=== PATIENT | female | born 1950 | race Caucasian/White ===

== ENCOUNTER 2018-01-15 01:28 | Outpatient (CLI) | payer OTHER, SELFPAY ==
--- NOTE | 2018-01-15 11:44 | DI.RAD_ITS ---
SYMPTOM/DIAGNOSIS: PRIMARY MALIGNANT NEOPLASM RT LOWER LOBE OF LUNG, C34.31, F/ U LUNG CA PA AND LATERAL CHEST: There is a small, ill defined, increased density projected over the right lung apex which is suspicious for a pulmonary nodule. In addition, there is a questionable area of abnormality in the left upper lobe. There is no pleural effusion. The cardiovascular structures appear intact. SUMMARY: Question bilateral pulmonary nodules. Given the patient's history, further assessment with chest CT is suggested.
== END 2018-01-15 01:48 ==
PROVIDERS: PCP Nurse Practitioner Family; Visit Provider Internal Medicine Medical Oncology
DX: C34.31 Malignant neoplasm of lower lobe, right bronchus or lung (principal); R91.8 Other nonspecific abnormal finding of lung field
CPT/HCPCS: 71046

== ENCOUNTER 2018-01-15 11:07 | Outpatient (CLI) | payer OTHER, SELFPAY ==
[2018-01-15 11:38] LABS: Abs Immature Grans 0.05 k/cumm (0.0-0.09); Absolute Eosinophil Count 0.14 k/cumm (0.0-0.7); Absolute Lymphocyte Count 3.05 k/cumm (1.2-3.4); Absolute Monocyte Count 1.05 k/cumm (0.11-0.7); Absolute Neutrophil Count 7.35 k/cumm (1.2-6.7); Basophils % 0.3; Eosinophils % 1.2; HGB 13.2 g/dL (12.0-15.5); Immature Grans % 0.4; Lymphocytes % 26.1; Mean Corpuscular Hemoglobin 31.5 pg (27.0-33.0); Mean Corpuscular Volume 95.5 fL (80-95); Mean Platelet Volume 8.7 fL (8.0-11.0); Platelet Count 296 x1000/uL (130-400); RBC 4.19 m/cumm (4.00-5.20); RBC Distribution Width 13.2 % (11.7-14.6); White Blood Cell Count 11.67 k/cumm (4.4-10.8)
[2018-01-15 11:40] LABS: Absolute Basophil Count 0.04 k/cumm (0.0-0.2)
[2018-01-15 11:59] LABS: ALT 34 U/L (12-78); AST 18 U/L (15-37); Albumin 3.5 g/dL (3.4-5.0); Alkaline Phosphatase 136 U/L (46-116); Anion Gap 6.9 mmol/L (3-11); BUN 19 mg/dL (7-18); Bilirubin, Total 0.3 mg/dL (0.2-1.0); CO2 29.1 mmol/L (21.0-32.0); CREATININE 1.22 mg/dL (0.55-1.02); Calcium 9.1 mg/dL (8.5-10.1); Chloride 104 mmol/L (98-107); Estimated GFR 44.23 (mL/min/1.73m2); Glucose 100 mg/dL (70-100); Potassium 4.3 mmol/L (3.5-5.1); Sodium 140 mmol/L (136-145); T4 10.5 ug/dL (4.5-12.5); TSH 2.57 uIU/mL (0.358-3.74); Total Protein 7.2 g/dL (6.4-8.2)
== END 2018-01-15 11:27 ==
PROVIDERS: PCP Nurse Practitioner Family; Visit Provider Internal Medicine Medical Oncology
DX: C34.31 Malignant neoplasm of lower lobe, right bronchus or lung (principal); E03.2 Hypothyroidism due to medicaments and other exogenous substances
CPT/HCPCS: 36415; 80053; 84436; 84443; 85025

== ENCOUNTER 2018-02-18 08:30 | Outpatient (CLI) | payer OTHER, SELFPAY ==
--- NOTE | 2018-02-18 09:36 | DI.CT_ITS ---
SYMPTOM/DIAGNOSIS: H/O LUNG CA W/METS , S/P TREATMENT. ? STATUS OF DISEASE C34.[address]: 02/18 CT examination of the chest was performed without contrast administration due to history of contrast allergy. The patient reportedly has a history of metastatic lung carcinoma. The current examination is compared with the most recent CT of 08/09/2017. The previous examination showed multiple intrapulmonary lesions bilaterally. These are again seen on today's examination. Most of the lesions are essentially unchanged in size although there has been an increased radiodensity in the interval associated with a few of these lesions. Dominant left posterior suprahilar lesion which lies in the superior portion of the left lower lobe, is unchanged in size in comparison with the previous examination. A lesion in the right upper lobe measures about 10 x 12 mm in diameter and has markedly increased in radiodensity since the previous examination although grossly unchanged in size. No gross mediastinal or hilar adenopathy seen. No pleural effusion seen. Tracheobronchial tree appears intact. No axillary or supraclavicular adenopathy seen. Images obtained through the upper abdomen show unremarkable appearance of spleen , pancreas, adrenals and kidneys. Low attenuation, hepatic lesions appear unchanged from the previous examination and are too small to characterize on noncontrast CT. CONCLUSION: Comparison with examination of 08/09/2017 shows increased intralesional radiodensity in intrapulmonary presumed metastatic lesions. No gross interval growth of lesions identified. Please see above discussion.
[2018-02-18 09:56] LABS: ALT 21 U/L (12-78); AST 16 U/L (15-37); Albumin 3.3 g/dL (3.4-5.0); Alkaline Phosphatase 125 U/L (46-116); Anion Gap 8.1 mmol/L (3-11); BUN 17 mg/dL (7-18); Bilirubin, Total 0.3 mg/dL (0.2-1.0); CO2 28.9 mmol/L (21.0-32.0); CREATININE 1.17 mg/dL (0.55-1.02); Calcium 9.4 mg/dL (8.5-10.1); Chloride 104 mmol/L (98-107); Estimated GFR 46.42 (mL/min/1.73m2); Glucose 99 mg/dL (70-100); Potassium 4.1 mmol/L (3.5-5.1); Sodium 141 mmol/L (136-145)
== END 2018-02-18 08:50 ==
PROVIDERS: PCP Nurse Practitioner Family; Visit Provider Nurse Practitioner Family
DX: C34.31 Malignant neoplasm of lower lobe, right bronchus or lung (principal); E03.2 Hypothyroidism due to medicaments and other exogenous substances; Z92.21 Personal history of antineoplastic chemotherapy
CPT/HCPCS: 36415; 71250; 80053

== ENCOUNTER 2018-03-22 00:57 | Outpatient (CLI) | payer OTHER, SELFPAY ==
--- NOTE | 2018-03-22 11:46 | DI.US_ITS ---
SYMPTOM/DIAGNOSIS: PRIMARY MALIGNANCY OF RT LOWER LOBE OF LUNG, C34.31, ENLARGED RT THYROID SEEN ON US, ? STATUS THYROID ULTRASOUND: Comparison is made with 10/12/16. A small nodule measuring 1 cm. in maximal dimension was seen on the previous exam. Today's exam shows a vascular nodule measuring 12 by 7 by 7 mm. at the lower pole of the right lobe of the thyroid, with a similar appearance to the previous exam. A few tiny colloid cysts are also seen. The right lobe measures 4.8 by 1.4 by 1.4 cm. The left lobe measures 3.7 by 1.7 by 1.3 cm. IMPRESSION: No significant change in size or appearance of previously noted hypervascular nodule at the lower pole of the right lobe of the thyroid.
== END 2018-03-22 01:17 ==
PROVIDERS: PCP Nurse Practitioner Family; Visit Provider Nurse Practitioner Family
DX: E04.9 Nontoxic goiter, unspecified (principal); E04.1 Nontoxic single thyroid nodule; C34.31 Malignant neoplasm of lower lobe, right bronchus or lung
CPT/HCPCS: 76536

== ENCOUNTER 2018-07-01 12:06 | Outpatient (CLI) | payer OTHER, SELFPAY ==
[2018-07-01 12:43] LABS: Abs Immature Grans 0.03 k/cumm (0.0-0.09); Absolute Basophil Count 0.03 k/cumm (0.0-0.2); Absolute Eosinophil Count 0.08 k/cumm (0.0-0.7); Absolute Lymphocyte Count 2.55 k/cumm (1.2-3.4); Absolute Monocyte Count 0.74 k/cumm (0.11-0.7); Basophils % 0.3; Eosinophils % 0.8; HCT 39.6 % (36.0-46.0); Immature Grans % 0.3; Lymphocytes % 24.4; Mean Corp. HGB Concentration 32.8 g/dL (32.0-36.0); Mean Corpuscular Volume 94.5 fL (80-95); Mean Platelet Volume 8.5 fL (8.0-11.0); Monocytes % 7.1; Neutrophils % 67.1; Platelet Count 293 x1000/uL (130-400); RBC 4.19 m/cumm (4.00-5.20); RBC Distribution Width 13.3 % (11.7-14.6); White Blood Cell Count 10.43 k/cumm (4.4-10.8)
[2018-07-01 13:03] LABS: ALT 23 U/L (12-78); AST 14 U/L (15-37); Albumin 3.4 g/dL (3.4-5.0); Alkaline Phosphatase 147 U/L (46-116); Anion Gap 9.8 mmol/L (3-11); BUN 17 mg/dL (7-18); Bilirubin, Total 0.3 mg/dL (0.2-1.0); CO2 27.2 mmol/L (21.0-32.0); Chloride 102 mmol/L (98-107); Estimated GFR 41.11 (mL/min/1.73m2); Glucose 91 mg/dL (70-100); LDH 165 U/L (81-234); Potassium 4.2 mmol/L (3.5-5.1); Sodium 139 mmol/L (136-145); Total Protein 7.4 g/dL (6.4-8.2)
--- NOTE | 2018-07-01 13:35 | DI.RAD_ITS ---
SYMPTOM/DIAGNOSIS: H/O LUNG CA, S/P TREATMENT, ? STATUS OF DISEASE, C34.31 PA AND LATERAL CHEST: The examination is compared with previous examination of 01/15/18. The patient reportedly has a history of lung carcinoma. Multiple questionable pulmonary nodules were identified on chest film of 01/15/18. On today's examination, these appear grossly unchanged or slightly more prominent with a right lower lung field nodule measuring about 8 mm. in diameter and appearing more prominent than on the previous examination and a right upper lung field nodule measuring about 14 mm. in diameter and grossly unchanged. The questionable area of nodularity of the left upper lobe is less prominent on the current examination.
[2018-07-05 10:48] LABS: Amphetamines Negative ng/mL (Cutoff: 30); Barbiturates Negative ng/mL (Cutoff: 75); Benzodiazepines Negative ng/mL (Cutoff: 75); Buprenorphine Negative ng/mL (Cutoff: 1); Methamphetamine Negative ng/mL (Cutoff: 30)
[2018-07-05 10:49] LABS: Cocaine Negative ng/mL (Cutoff: 30); Methadone Negative ng/mL (Cutoff: 40); Opiates Negative ng/mL (Cutoff: 30); Phencyclidine Negative ng/mL (Cutoff: 15)
== END 2018-07-01 12:26 ==
PROVIDERS: PCP Nurse Practitioner Family; Visit Provider Nurse Practitioner Family
DX: Z85.118 Personal history of other malignant neoplasm of bronchus and lung (principal); R91.8 Other nonspecific abnormal finding of lung field; Z79.899 Other long term (current) drug therapy
CPT/HCPCS: 36415; 80053; 71046; 80307; 83615; 85025

== ENCOUNTER 2018-09-12 14:59 | Outpatient (CLI) | payer OTHER, SELFPAY ==
[2018-09-17 13:07] LABS: Amphetamines Negative ng/mL (Cutoff: 30); Barbiturates Negative ng/mL (Cutoff: 75); Benzodiazepines Negative ng/mL (Cutoff: 75); Buprenorphine Negative ng/mL (Cutoff: 1); Methamphetamine Negative ng/mL (Cutoff: 30)
[2018-09-17 13:08] LABS: Cocaine Negative ng/mL (Cutoff: 30); Methadone Negative ng/mL (Cutoff: 40); Opiates Negative ng/mL (Cutoff: 30); Phencyclidine Negative ng/mL (Cutoff: 15)
== END 2018-09-12 15:19 ==
PROVIDERS: PCP Nurse Practitioner Family; Visit Provider Nurse Practitioner Family
DX: Z51.81 Encounter for therapeutic drug level monitoring (principal); Z79.899 Other long term (current) drug therapy; R63.5 Abnormal weight gain; E04.9 Nontoxic goiter, unspecified
CPT/HCPCS: 36415; 80307; 84443

== ENCOUNTER 2018-10-28 13:53 | Outpatient (CLI) | payer OTHER, SELFPAY ==
[2018-10-28 14:23] LABS: Abs Immature Grans 0.03 k/cumm (0.0-0.09); Absolute Basophil Count 0.02 k/cumm (0.0-0.2); Absolute Eosinophil Count 0.12 k/cumm (0.0-0.7); Absolute Lymphocyte Count 2.66 k/cumm (1.2-3.4); Absolute Monocyte Count 1.04 k/cumm (0.11-0.7); Absolute Neutrophil Count 7.06 k/cumm (1.2-6.7); Basophils % 0.2; Eosinophils % 1.1; HCT 37.6 % (36.0-46.0); HGB 12.5 g/dL (12.0-15.5); Immature Grans % 0.3; Lymphocytes % 24.3; Mean Corp. HGB Concentration 33.2 g/dL (32.0-36.0); Mean Corpuscular Hemoglobin 31.5 pg (27.0-33.0); Mean Corpuscular Volume 94.7 fL (80-95); Mean Platelet Volume 8.5 fL (8.0-11.0); Monocytes % 9.5; Neutrophils % 64.6; Platelet Count 312 x1000/uL (130-400); RBC 3.97 m/cumm (4.00-5.20); RBC Distribution Width 13.4 % (11.7-14.6); White Blood Cell Count 10.93 k/cumm (4.4-10.8)
[2018-10-28 14:56] LABS: ALT 19 U/L (12-78); AST 9 U/L (15-37); Albumin 3.2 g/dL (3.4-5.0); Alkaline Phosphatase 137 U/L (46-116); Anion Gap 10.7 mmol/L (3-11); BUN 14 mg/dL (7-18); Bilirubin, Total 0.2 mg/dL (0.2-1.0); CO2 25.3 mmol/L (21.0-32.0); CREATININE 1.21 mg/dL (0.55-1.02); Chloride 106 mmol/L (98-107); Estimated GFR 44.66 (mL/min/1.73m2); Glucose 91 mg/dL (70-100); Potassium 3.9 mmol/L (3.5-5.1); Sodium 142 mmol/L (136-145); Total Protein 7.1 g/dL (6.4-8.2)
== END 2018-10-28 14:13 ==
PROVIDERS: PCP Nurse Practitioner Family; Visit Provider Internal Medicine Hematology & Oncology
DX: C34.31 Malignant neoplasm of lower lobe, right bronchus or lung (principal)
CPT/HCPCS: 36415; 80053; 85025

== ENCOUNTER 2019-02-05 10:40 | Outpatient (CLI) | payer MEDICARE, OTHER, SELFPAY ==
[2019-02-05 11:04] LABS: Abs Immature Grans 0.04 k/cumm (0.0-0.09); Absolute Basophil Count 0.03 k/cumm (0.0-0.2); Absolute Eosinophil Count 0.16 k/cumm (0.0-0.7); Absolute Lymphocyte Count 3.25 k/cumm (1.2-3.4); Absolute Monocyte Count 1.17 k/cumm (0.11-0.7); Absolute Neutrophil Count 6.52 k/cumm (1.2-6.7); Basophils % 0.3; Eosinophils % 1.4; HCT 39.4 % (36.0-46.0); HGB 12.4 g/dL (12.0-15.5); Immature Grans % 0.4; Lymphocytes % 29.1; Mean Corp. HGB Concentration 31.5 g/dL (32.0-36.0); Mean Corpuscular Hemoglobin 30.6 pg (27.0-33.0); Mean Corpuscular Volume 97.3 fL (80-95); Mean Platelet Volume 8.7 fL (8.0-11.0); Monocytes % 10.5; Neutrophils % 58.3; Platelet Count 323 x1000/uL (130-400); RBC 4.05 m/cumm (4.00-5.20); RBC Distribution Width 13.5 % (11.7-14.6); White Blood Cell Count 11.18 k/cumm (4.4-10.8)
[2019-02-05 11:18] LABS: ALT 24 U/L (14-59); AST 14 U/L (15-37); Alkaline Phosphatase 144 U/L (46-116); Anion Gap 8.4 mmol/L (3-11); BUN 11 mg/dL (7-18); Bilirubin, Total 0.4 mg/dL (0.2-1.0); CO2 27.6 mmol/L (21.0-32.0); CREATININE 1.16 mg/dL (0.55-1.02); Calcium 8.7 mg/dL (8.5-10.1); Chloride 110 mmol/L (98-107); Estimated GFR 46.74 (mL/min/1.73m2); Glucose 116 mg/dL (70-100); Potassium 3.7 mmol/L (3.5-5.1); Sodium 146 mmol/L (136-145); TSH 2.11 uIU/mL (0.36-3.74); Total Protein 6.9 g/dL (6.4-8.2)
--- NOTE | 2019-02-05 11:20 | DI.RAD_ITS ---
EXAM: XR CHEST 2V PA LATERAL CLINICAL HISTORY: CANCER RT LOWER LOBE OF LUNG C34.31 TECHNIQUE: The study was performed according to the usual protocol. COMPARISON: XR CHEST 2V PA LATERAL from 07/01/2018 FINDINGS: PA and lateral chest obtained today is compared with prior chest film of July 01, 2018. The prior exa mination showed multiple faint intrapulmonary nodules in a patient with reported history of right low er lobe lung carcinoma. No gross interval change in appearance of the bilateral nodules. If you wis h more accurate assessment of extent of intrapulmonary disease, additional evaluation with chest CT w ould be recommended.
== END 2019-02-05 11:00 ==
PROVIDERS: PCP Nurse Practitioner Family; Visit Provider Internal Medicine Hematology & Oncology
DX: C34.31 Malignant neoplasm of lower lobe, right bronchus or lung (principal); E03.2 Hypothyroidism due to medicaments and other exogenous substances
CPT/HCPCS: 36415; 80053; 71046; 84443; 85025

== ENCOUNTER 2019-05-23 09:54 | Outpatient (CLI) | payer MEDICARE, OTHER, SELFPAY ==
[2019-05-23 10:30] LABS: HCT 41.3 % (36.0-46.0); HGB 13.2 g/dL (12.0-15.5); Mean Corpuscular Hemoglobin 30.6 pg (27.0-33.0); Mean Corpuscular Volume 95.8 fL (80-95); Mean Platelet Volume 8.9 fL (8.0-11.0); Platelet Count 335 x1000/uL (130-400); RBC 4.31 m/cumm (4.00-5.20); RBC Distribution Width 13.2 % (11.7-14.6); White Blood Cell Count 11.44 k/cumm (4.4-10.8)
[2019-05-23 11:44] LABS: Anion Gap 8.6 mmol/L (3-11); BUN 14 mg/dL (7-18); CO2 30.4 mmol/L (21.0-32.0); CREATININE 1.11 mg/dL (0.55-1.02); Chloride 108 mmol/L (98-107); Estimated GFR 49.18 (mL/min/1.73m2); Glucose 97 mg/dL (74-106); Potassium 4.2 mmol/L (3.5-5.1); Sodium 147 mmol/L (136-145)
== END 2019-05-23 10:14 ==
PROVIDERS: PCP Nurse Practitioner Family; Visit Provider Student in an Organized Health Care Education/Training Program
DX: R06.02 Shortness of breath (principal); Z86.2 Personal history of diseases of the blood and blood-forming organs and certain disorders involving the immune mechanism; R39.9 Unspecified symptoms and signs involving the genitourinary system; R79.89 Other specified abnormal findings of blood chemistry; R82.998 Other abnormal findings in urine
CPT/HCPCS: 36415; 80048; 85027; 87077; 87086; 87186

== ENCOUNTER 2019-05-23 13:06 | Outpatient (REF) | payer OTHER, SELFPAY, MEDICARE | END 2019-05-23 13:26 | LOC: LBN 13:06 | PROVIDERS: PCP Nurse Practitioner Family; Visit Provider Student in an Organized Health Care Education/Training Program | DX: R69 Illness, unspecified (principal) | CPT/HCPCS: 87077; 87086 ==

== ENCOUNTER 2019-08-15 02:17 | Outpatient (CLI) | payer MEDICARE, OTHER, SELFPAY ==
[2019-08-15 08:20] LABS: HCT 40.8 % (36.0-46.0); HGB 13.3 g/dL (12.0-15.5); Mean Corp. HGB Concentration 32.6 g/dL (32.0-36.0); Mean Corpuscular Hemoglobin 31.1 pg (27.0-33.0); Mean Corpuscular Volume 95.3 fL (80-95); Mean Platelet Volume 8.8 fL (8.0-11.0); RBC 4.28 m/cumm (4.00-5.20); RBC Distribution Width 13.5 % (11.7-14.6); White Blood Cell Count 9.83 k/cumm (4.4-10.8)
[2019-08-15 08:25] LABS: Anion Gap 7.5 mmol/L (3-11); CO2 28.5 mmol/L (21.0-32.0); CREATININE 1.48 mg/dL (0.55-1.02); Calcium 8.9 mg/dL (8.5-10.1); Estimated GFR 35.29 (mL/min/1.73m2); Potassium 4.5 mmol/L (3.5-5.1)
[2019-08-15 08:40] LABS: TSH (W/Ref FT4) 3.62 uIU/mL (0.36-3.74)
== END 2019-08-15 02:37 ==
PROVIDERS: PCP Student in an Organized Health Care Education/Training Program; Visit Provider Student in an Organized Health Care Education/Training Program
DX: R53.83 Other fatigue (principal); F32.9 Major depressive disorder, single episode, unspecified; E07.9 Disorder of thyroid, unspecified; R79.89 Other specified abnormal findings of blood chemistry; E46 Unspecified protein-calorie malnutrition; R06.2 Wheezing; J06.9 Acute upper respiratory infection, unspecified; Z11.59 Encounter for screening for other viral diseases
CPT/HCPCS: 36415; 80048; 85027; U0003; 84443

== ENCOUNTER 2019-08-15 03:49 | Outpatient (CLI) | payer OTHER, SELFPAY, MEDICARE ==
--- NOTE | 2019-08-15 07:49 | DI.US_ITS ---
EXAM: US THYROID CLINICAL HISTORY: eval rt lobe nodule,HAIR LOSS, NECK SWELLING, E07.9,R22.1 TECHNIQUE: Ultrasound performed using standard protocol. COMPARISON: No exams were available for comparison FINDINGS: Thyroid ultrasound was performed according to the usual protocol. Examination compared to prior stud y of 03/22/2018. Right thyroid lobe measures 46 x 12 x 16 millimeters and left thyroid lobe measures 34 x 15 x 14 millimeters. Thyroid parenchyma is moderately heterogeneous, a few small nodules are i dentified. There is a dominant 10 x 7 x 7 millimeter in diameter nodule of the inferior pole of the right thyroi d lobe. This is essentially unchanged in appearance in comparison with prior study of 2018. This i s a vascular lesion and is of solid hypo echogenicity. This is taller than wide in alignment. Lisa n is ill-defined. No echogenic foci. TIRADS evaluation, 7 points, TR 5, highly suspicious, tissue sampling recommended for lesions 1 cm or greater. No other significant change in bilateral nodules, the largest 4 millimeters in diameter in the right thyroid lobe.. IMPRESSION: TIRADS TR 5 lesion, tissue sampling recommended for lesions 1 cm or greater. DATA REPOSITORY:
== END 2019-08-15 04:09 ==
PROVIDERS: PCP Student in an Organized Health Care Education/Training Program; Visit Provider Student in an Organized Health Care Education/Training Program
DX: R22.1 Localized swelling, mass and lump, neck (principal); L65.8 Other specified nonscarring hair loss; E07.89 Other specified disorders of thyroid
CPT/HCPCS: 76536

== ENCOUNTER 2019-08-15 09:10 | Outpatient (CLI) | payer MEDICARE, OTHER, SELFPAY ==
[2019-08-16 17:38] LABS: COVID-19 RT-PCR Result NEGATIVE (Negative)
== END 2019-08-15 09:30 ==
PROVIDERS: PCP Student in an Organized Health Care Education/Training Program; Visit Provider Student in an Organized Health Care Education/Training Program
DX: R06.2 Wheezing (principal); J06.9 Acute upper respiratory infection, unspecified; Z11.59 Encounter for screening for other viral diseases
CPT/HCPCS: U0003

== ENCOUNTER 2019-08-27 22:37 | Outpatient (REF) | payer MEDICARE, OTHER, SELFPAY | END 2019-08-27 22:57 | LOC: LBN 22:37 | PROVIDERS: PCP Student in an Organized Health Care Education/Training Program; Visit Provider Student in an Organized Health Care Education/Training Program | DX: R31.9 Hematuria, unspecified (principal); R39.11 Hesitancy of micturition | CPT/HCPCS: 87077; 87086 ==

== ENCOUNTER 2019-09-04 03:49 | Outpatient (CLI) | payer MEDICARE, OTHER, SELFPAY ==
[2019-09-04 13:46] LABS: Abs Immature Grans 0.03 k/cumm (0.0-0.09); Absolute Basophil Count 0.02 k/cumm (0.0-0.2); Absolute Eosinophil Count 0.13 k/cumm (0.0-0.7); Absolute Monocyte Count 0.81 k/cumm (0.11-0.7); Absolute Neutrophil Count 4.88 k/cumm (1.2-6.7); Basophils % 0.2; Eosinophils % 1.4; HCT 39.6 % (36.0-46.0); HGB 12.8 g/dL (12.0-15.5); Immature Grans % 0.3 %; Lymphocytes % 37.4; Mean Corp. HGB Concentration 32.3 g/dL (32.0-36.0); Mean Corpuscular Hemoglobin 30.5 pg (27.0-33.0); Mean Corpuscular Volume 94.3 fL (80-95); Mean Platelet Volume 8.6 fL (8.0-11.0); Monocytes % 8.6; Neutrophils % 52.1; Platelet Count 288 x1000/uL (130-400); RBC Distribution Width 13.1 % (11.7-14.6); White Blood Cell Count 9.37 k/cumm (4.4-10.8)
[2019-09-04 14:06] LABS: ALT 29 U/L (14-59); AST 23 U/L (15-37); Albumin 3.4 g/dL (3.4-5.0); Alkaline Phosphatase 126 U/L (46-116); BUN 15 mg/dL (7-18); Bilirubin, Total 0.3 mg/dL (0.2-1.0); CREATININE 1.21 mg/dL (0.55-1.02); Chloride 105 mmol/L (98-107); Estimated GFR 44.52 (mL/min/1.73m2); Glucose 99 mg/dL (74-106); Potassium 4.3 mmol/L (3.5-5.1); Sodium 138 mmol/L (136-145); TSH 1.31 uIU/mL (0.36-3.74); Total Protein 7.2 g/dL (6.4-8.2)
== END 2019-09-04 04:09 ==
PROVIDERS: PCP Student in an Organized Health Care Education/Training Program; Visit Provider Internal Medicine Hematology & Oncology
DX: C34.31 Malignant neoplasm of lower lobe, right bronchus or lung (principal); E03.9 Hypothyroidism, unspecified
CPT/HCPCS: 36415; 80053; 84443; 85025

== ENCOUNTER 2019-12-11 03:00 | Outpatient (CLI) | payer MEDICARE, OTHER, SELFPAY ==
[2019-12-11 11:36] LABS: ALT 30 U/L (14-59); AST 21 U/L (15-37); Albumin 3.3 g/dL (3.4-5.0); Alkaline Phosphatase 107 U/L (46-116); Anion Gap 10.8 mmol/L (3-11); BUN 15 mg/dL (7-18); Bilirubin, Total 0.4 mg/dL (0.2-1.0); CO2 23.2 mmol/L (21.0-32.0); CREATININE 1.29 mg/dL (0.55-1.02); Chloride 106 mmol/L (98-107); Estimated GFR 41.22 (mL/min/1.73m2); Glucose 98 mg/dL (74-106); Sodium 140 mmol/L (136-145); TSH (W/Ref FT4) 0.64 uIU/mL (0.36-3.74); Total Protein 6.4 g/dL (6.4-8.2)
== END 2019-12-11 03:20 ==
PROVIDERS: PCP Student in an Organized Health Care Education/Training Program; Visit Provider Student in an Organized Health Care Education/Training Program
DX: R53.82 Chronic fatigue, unspecified (principal); R79.89 Other specified abnormal findings of blood chemistry
CPT/HCPCS: 36415; 80053; 84443

== ENCOUNTER 2020-02-02 08:08 | Emergency (ER) | payer MEDICARE, OTHER, SELFPAY ==
[2020-02-02 08:15] VITALS: BP 133/101; PULSE 79; RESP 22; TEMP 36.3; O2SAT 92
--- NOTE | 2020-02-02 08:15 | DI.RAD_ITS ---
EXAM: XR ANKLE RT COMPLETE CLINICAL HISTORY: Injury R/O fracture. TECHNIQUE: 2D digital imaging was performed. COMPARISON: No exams were available for comparison FINDINGS: BONES: There is a horizontal lucency in the lateral malleolus below the level of the talar dome suspi cious for nondisplaced fracture. No bony destructive lesion is seen. JOINTS: The ankle mortise is normally aligned. SOFT TISSUE: Soft tissue swelling of the ankle laterally. IMPRESSION: Horizontal lucency through the lateral malleolus below the level of the talar dome suspicious for non displaced fracture. Marked soft tissue swelling of the ankle laterally. CT scan may be obtained for further evaluation. DATA REPOSITORY: RADIATION DOSE DELIVERED:
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
[2020-02-02] MEDS: Acetaminophen 500 MG TAB PO (09:39)
== END 2020-02-02 09:59 | disposition home or self-care (01) ==
PROVIDERS: Emergency Provider Registered Nurse Emergency; PCP Student in an Organized Health Care Education/Training Program
DX: S82.64XA Nondisplaced fracture of lateral malleolus of right fibula, initial encounter for closed fracture (principal); S80.212A Abrasion, left knee, initial encounter; X50.9XXA Other and unspecified overexertion or strenuous movements or postures, initial encounter; G35 Multiple sclerosis
CPT/HCPCS: 27786; 99281; 73610; E0114; L4361

== ENCOUNTER 2020-02-11 10:07 | Outpatient (CLI) | payer MEDICARE, OTHER, SELFPAY | END 2020-02-11 10:27 | PROVIDERS: PCP Student in an Organized Health Care Education/Training Program; Referring Provider Student in an Organized Health Care Education/Training Program; Visit Provider Orthopaedic Surgery | DX: S82.891A Other fracture of right lower leg, initial encounter for closed fracture (principal); S93.401A Sprain of unspecified ligament of right ankle, initial encounter; W01.0XXA Fall on same level from slipping, tripping and stumbling without subsequent striking against object, initial encounter; G35 Multiple sclerosis | CPT/HCPCS: 99203; 99214 ==

== ENCOUNTER 2020-05-13 03:00 | Outpatient (CLI) | payer MEDICARE, OTHER, SELFPAY ==
[2020-05-13 10:36] LABS: ALT 42 U/L (14-59); AST 18 U/L (15-37); Albumin 3.5 g/dL (3.4-5.0); Alkaline Phosphatase 143 U/L (46-116); Anion Gap 9.1 mmol/L (3-11); BUN 16 mg/dL (7-18); Bilirubin, Total 0.4 mg/dL (0.2-1.0); CO2 27.9 mmol/L (21.0-32.0); CREATININE 1.3 mg/dL (0.55-1.02); Calcium 9.1 mg/dL (8.5-10.1); Chloride 107 mmol/L (98-107); Estimated GFR 40.86 (mL/min/1.73m2); Glucose 88 mg/dL (74-106); Magnesium 2.1 mg/dL (1.8-2.4); Potassium 4.1 mmol/L (3.5-5.1); Sodium 144 mmol/L (136-145); Total Protein 7.2 g/dL (6.4-8.2)
[2020-05-13 10:47] LABS: FREE T4 1.16 ng/dL (0.76-1.46); TSH 1.31 uIU/mL (0.36-3.74)
[2020-05-13 17:15] LABS: T3, Total 151 ng/dL (97-169)
== END 2020-05-13 03:01 | disposition home or self-care (01) ==
LOC: LBO 03:00
PROVIDERS: Internal Medicine Endocrinology, Diabetes & Metabolism; PCP Student in an Organized Health Care Education/Training Program; Visit Provider Student in an Organized Health Care Education/Training Program
DX: R19.7 Diarrhea, unspecified (principal); E86.0 Dehydration
CPT/HCPCS: 36415; 80053; 83735; 84439; 84443; 84480

== ENCOUNTER 2020-06-16 00:53 | Outpatient (CLI) | payer MEDICARE, OTHER, SELFPAY ==
--- NOTE | 2020-06-16 | DI.RAD_ITS ---
EXAM: XR CHEST 2V PA LATERAL CLINICAL HISTORY: F/U RLL LUNG CA,C34.31. TECHNIQUE: 2D digital imaging was performed. COMPARISON: CR XR CHEST 2V PA LATERAL from 07/01/2018 CR XR CHEST 2V PA LATERAL from 02/05/2019 FINDINGS: Heart size is normal. The mediastinum is not widened. Nodular infiltrate in the lateral aspect of the left lung is again noted as well as a small nodular i nfiltrate in the right upper lobe region, unchanged from January 2019. However, the nodular infiltr ate in the left upper lobe was not evident on chest x-ray of July 2018. The nodular infiltrate in t he right upper lobe region was evident on July 2018. There are no pleural effusions. IMPRESSION: Bilateral noncalcified nodular infiltrates. Suspicious.Recommend chest CT scan. DATA REPOSITORY: RADIATION DOSE DELIVERED:
== END 2020-06-16 01:13 ==
PROVIDERS: PCP Student in an Organized Health Care Education/Training Program; Visit Provider Internal Medicine Hematology & Oncology
DX: R91.8 Other nonspecific abnormal finding of lung field (principal); C34.31 Malignant neoplasm of lower lobe, right bronchus or lung
CPT/HCPCS: 71046

== ENCOUNTER 2020-06-16 02:19 | Outpatient (CLI) | payer MEDICARE, OTHER, SELFPAY ==
[2020-06-16 09:31] LABS: Abs Immature Grans 0.06 10^3/uL (0.0-0.06); Absolute Basophil Count 0.05 10^3/uL (0.0-0.2); Absolute Eosinophil Count 0.15 10^3/uL (0.0-0.7); Basophils % 0.4; Eosinophils % 1.3; HCT 40.1 % (36.0-46.0); HGB 13.2 g/dL (11.2-15.7); Immature Grans % 0.5; Lymphocytes % 19.7; MCH 30.3 pg (27.0-33.0); MCHC 32.9 % (32.0-36.0); MCV 92.2 fL (80-95); MPV 8.6 fL (8.0-11.0); Monocytes % 9.9; Neutrophils % 68.2; Nucleated RBC 0 %; Platelet Count 280 10^3/uL (130-400); RBC 4.35 10^6/uL (3.93-5.22); RDW 12.9 % (11.7-14.6); RDW-SD 44.1 fL; WBC 11.66 10^3/uL (4.4-10.8)
[2020-06-16 09:32] LABS: Absolute Monocyte Count 1.15 10^3/uL (0.1-0.8); Absolute Neutrophil Count 7.95 10^3/uL (1.2-6.7)
[2020-06-16 09:43] LABS: ALT 42 U/L (14-59); AST 21 U/L (15-37); Alkaline Phosphatase 133 U/L (46-116); Anion Gap 9.2 mmol/L (3-11); BUN 15 mg/dL (7-18); Bilirubin, Total 0.4 mg/dL (0.2-1.0); CO2 24.8 mmol/L (21.0-32.0); CREATININE 1.3 mg/dL (0.55-1.02); Calcium 8.8 mg/dL (8.5-10.1); Chloride 108 mmol/L (98-107); Estimated GFR 40.86 (mL/min/1.73m2); Glucose 112 mg/dL (74-106); Potassium 4.2 mmol/L (3.5-5.1); Sodium 142 mmol/L (136-145); Total Protein 7.1 g/dL (6.4-8.2)
== END 2020-06-16 02:20 | disposition home or self-care (01) ==
LOC: LBO 02:19
PROVIDERS: Internal Medicine Hematology & Oncology; PCP Student in an Organized Health Care Education/Training Program; Visit Provider Student in an Organized Health Care Education/Training Program
DX: C34.31 Malignant neoplasm of lower lobe, right bronchus or lung (principal)
CPT/HCPCS: 36415; 80053; 71046; 85025

== ENCOUNTER 2020-07-09 04:04 | Outpatient (CLI) | payer MEDICARE, OTHER, MEDICAID, SELFPAY ==
--- NOTE | 2020-07-09 09:30 | DI.CT_ITS ---
EXAM: CT CHEST WO CLINICAL HISTORY: PRIMARY RT LUNG CA,C34.31,ASSESS TREATMENT RESPONSE. TECHNIQUE: Imaging protocol: Axial computed tomography images were obtained and coronal and sagittal reformatted images were created and reviewed. COMPARISON: CT CT CHEST WO from 02/18/[address] CHEST WO from 02/18/2018 CR XR CHEST 2V PA LATERAL from 06/16/2020 CR XR CHEST 2V PA LATERAL from 06/16/2020 FINDINGS: Tracheobronchial tree: Patent where visualized. Pulmonary parenchyma: There has been an increase in size and number of the solid and ground-glass opa cities in the lungs. For instance there is a new opacity in the right upper lobe measuring 1.2 x 1 c m. (Series 4, image 174). There has been increase in opacity in the right upper lobe posterior late rally. This area currently measures 1.8 x 1.4 cm. This compares with 0.8 x 1.1 cm. (Series 4, imag e 212). There is again seen a bulla in the right lower lobe. There is scarring seen in the medial a spect of the left lower lobe. Mediastinum and Malina: No dominant adenopathy or fluid collection. There is a small hiatal hernia. Pleura: There is developed a small left pleural effusion. No right pleural effusion or pneumothorax is present. Heart: The heart is not dilated. Mild coronary artery calcification is present. No pericardial effus ion. Aorta: Thoracic aorta non-dilated. Mild atherosclerosis. Upper abdomen: Diffuse decreased attenuation of the liver consistent with fatty infiltration. Lymph nodes: Within normal limits. Soft tissues: Unremarkable. Bones:Normal. IMPRESSION: 1. Increase in number and size of pulmonary opacities suggestive of progressive metastatic disease. 2. Development of a left pleural effusion. RADIATION DOSE DELIVERED: 436.62mGy.cm Total DLP 436.62mGy.cm Total DLP DATA REPOSITORY: All CT scans at this facility are submitted to the National Radiology Data Registry (NRDR) Dose Index Registry (DIR) with the [employer] [place] [employer] ([employer]). RADIATION OPTIMIZATION: All CT scans at this facility use at least one of these dose optimization te chniques: automated exposure control; mA and/or kV adjustment per patient size (includes targeted exa ms where dose is matched to clinical indication); or iterative reconstruction.
== END 2020-07-09 04:24 ==
PROVIDERS: PCP Student in an Organized Health Care Education/Training Program; Visit Provider Nurse Practitioner Family
DX: C34.31 Malignant neoplasm of lower lobe, right bronchus or lung (principal); J90 Pleural effusion, not elsewhere classified; J98.4 Other disorders of lung; K76.0 Fatty (change of) liver, not elsewhere classified
CPT/HCPCS: 71250

== ENCOUNTER 2020-09-24 00:51 | Outpatient (RCR) | payer MEDICARE, MEDICAID, OTHER, SELFPAY ==
--- NOTE | 2020-09-24 09:45 | HOLTER_ITS ---
APPROVED REPORT Conclusion There is a 48-hour monitor ordered for indication of tachycardia. Patient was in normal sinus rhythm for the majority the recording with an average heart rate of 71 bp m (56-97 bpm) The patient had no episodes of ventricular tachycardia and 6 brief episodes of supraventricular tachy cardia with the longest lasting 7 beats. There were no PVCs and rare PACs. There were no episodes of atrial fibrillation, no pauses greater than 3 seconds and no evidence of hi gh degree heart block. There were no patient triggered events.
== END 2020-09-29 23:59 | disposition home or self-care (01) ==
LOC: RT 00:51
PROVIDERS: PCP Student in an Organized Health Care Education/Training Program; Visit Provider Student in an Organized Health Care Education/Training Program
DX: R00.0 Tachycardia, unspecified (principal); I47.1 Supraventricular tachycardia
CPT/HCPCS: 93227; 93225; 93226

== ENCOUNTER 2020-11-12 02:43 | Outpatient (CLI) | payer MEDICARE, OTHER, MEDICAID, SELFPAY ==
[2020-11-12 08:41] LABS: Abs Immature Grans 0.03 10^3/uL (0.0-0.06); Absolute Basophil Count 0.04 10^3/uL (0.0-0.2); Absolute Eosinophil Count 0.15 10^3/uL (0.0-0.7); Absolute Lymphocyte Count 2.56 10^3/uL (1.2-3.4); Absolute Neutrophil Count 7.58 10^3/uL (1.2-6.7); Basophils % 0.4; Eosinophils % 1.3; HCT 41.2 % (36.0-46.0); HGB 13.4 g/dL (11.2-15.7); Immature Grans % 0.3; Lymphocytes % 22.9; MCH 30.2 pg (27.0-33.0); MCHC 32.5 % (32.0-36.0); MCV 92.8 fL (80-95); MPV 8.6 fL (8.0-11.0); Monocytes % 7.2; Neutrophils % 67.9; Nucleated RBC 0 %; Platelet Count 259 10^3/uL (130-400); RBC 4.44 10^6/uL (3.93-5.22); RDW 13.1 % (11.7-14.6); RDW-SD 44.7 fL; WBC 11.16 10^3/uL (4.4-10.8)
[2020-11-12 10:24] LABS: ALT 52 U/L (14-59); AST 28 U/L (15-37); Albumin 3.3 g/dL (3.4-5.0); Alkaline Phosphatase 149 U/L (46-116); Anion Gap 10.9 mmol/L (3-11); BUN 14 mg/dL (7-18); Bilirubin, Total 0.3 mg/dL (0.2-1.0); CO2 23.1 mmol/L (21.0-32.0); CREATININE 1.4 mg/dL (0.55-1.02); Calcium 8.8 mg/dL (8.5-10.1); Calculated LDL 145 mg/dL (<100); Chloride 108 mmol/L (98-107); Cholesterol 219 mg/dL (<200); Estimated GFR 37.51 (mL/min/1.73m2); Glucose 152 mg/dL (74-106); HDL Cholesterol 61 mg/dL (40-60); Magnesium 2.2 mg/dL (1.8-2.4); Potassium 4.6 mmol/L (3.5-5.1); Sodium 142 mmol/L (136-145); TSH (W/Ref FT4) 1.49 uIU/mL (0.36-3.74); Total Protein 6.7 g/dL (6.4-8.2); Triglyceride 69 mg/dL (<150)
== END 2020-11-12 02:44 | disposition home or self-care (01) ==
LOC: LBO 02:43
PROVIDERS: Internal Medicine Hematology & Oncology; PCP Student in an Organized Health Care Education/Training Program; Visit Provider Student in an Organized Health Care Education/Training Program
DX: R53.82 Chronic fatigue, unspecified (principal); E86.0 Dehydration; R34 Anuria and oliguria; R79.89 Other specified abnormal findings of blood chemistry; R29.6 Repeated falls; Z79.899 Other long term (current) drug therapy
CPT/HCPCS: 36415; 80053; 80061; 83735; 84443; 85025

== ENCOUNTER → 2020-12-28 09:42 | Outpatient (BNVA) | payer MEDICARE, OTHER, MEDICAID, SELFPAY | PROVIDERS: PCP Student in an Organized Health Care Education/Training Program; Referring Provider Student in an Organized Health Care Education/Training Program; Visit Provider Psychiatry & Neurology Neurology | DX: G35 Multiple sclerosis (principal); R29.6 Repeated falls; J44.9 Chronic obstructive pulmonary disease, unspecified | CPT/HCPCS: 99214 ==

== ENCOUNTER 2021-05-10 02:10 | Outpatient (CLI) | payer MEDICARE, MEDICAID, SELFPAY ==
[2021-05-10 11:37] LABS: HCT 45.1 % (36.0-46.0); HGB 14.7 g/dL (11.2-15.7); MCH 30.8 pg (27.0-33.0); MCHC 32.6 % (32.0-36.0); MCV 94.5 fL (80-95); MPV 8.8 fL (8.0-11.0); Platelet Count 282 10^3/uL (130-400); RBC 4.77 10^6/uL (3.93-5.22); RDW 13.1 % (11.7-14.6); RDW-SD 44.9 fL; WBC 11.43 10^3/uL (4.4-10.8)
[2021-05-10 13:20] LABS: ALT 64 U/L (14-59); AST 34 U/L (15-37); Albumin 3.5 g/dL (3.4-5.0); Alkaline Phosphatase 149 U/L (46-116); Anion Gap 14.9 mmol/L (3-11); BUN 18 mg/dL (7-18); Bilirubin, Total 0.3 mg/dL (0.2-1.0); CO2 20.1 mmol/L (21.0-32.0); CREATININE 1.5 mg/dL (0.55-1.02); Calcium 8.8 mg/dL (8.5-10.1); Chloride 104 mmol/L (98-107); Estimated GFR 34.53 (mL/min/1.73m2); Glucose 104 mg/dL (74-106); Potassium 4.6 mmol/L (3.5-5.1); Sodium 139 mmol/L (136-145); TSH (W/Ref FT4) 2.74 uIU/mL (0.36-3.74); Total Protein 7.2 g/dL (6.4-8.2)
[2021-05-10 23:11] LABS: T3,Free 3.1 pg/mL (2.8-5.3)
== END 2021-05-10 02:11 | disposition home or self-care (01) ==
LOC: LBO 02:10
PROVIDERS: PCP Student in an Organized Health Care Education/Training Program; Visit Provider Student in an Organized Health Care Education/Training Program
DX: E86.0 Dehydration (principal); R79.89 Other specified abnormal findings of blood chemistry; E03.2 Hypothyroidism due to medicaments and other exogenous substances; E04.1 Nontoxic single thyroid nodule; E07.9 Disorder of thyroid, unspecified; F33.3 Major depressive disorder, recurrent, severe with psychotic symptoms
CPT/HCPCS: 36415; 80053; 85027; 84443; 84481

== ENCOUNTER 2021-05-23 01:36 | Outpatient (CLI) | payer MEDICARE, MEDICAID, SELFPAY ==
--- NOTE | 2021-05-23 07:00 | DI.US_ITS ---
Exam(s) US THYROID EXAM: US THYROID CLINICAL HISTORY: evaluate for change; pt senses asymmetry,nodule,e04.1,e07.9,thyroid disorde. TECHNIQUE: Ultrasound thyroid performed using standard protocol. COMPARISON: US US THYROID from 08/15/2019 FINDINGS: RIGHT THYROID LOBE: Measures 1.1 cm AP x 1.5 cm wide x 4.1 cm craniocaudal There are 3 finding in the right lobe. There is a small benign colloid cyst located superiorly, not clinically significant Two other findings are seen in the inferior half of the right lobe. Nodule #1 . Size: Measures 1.2 cm AP by 0.8 cm wide by 0.9 cm craniocaudal. Slightly larger than previous study of August 2019. Composition: Solid-2 points Echogenicity: Isoechoic to surrounding parenchyma-1 point Shape: Taller than wider-3 points Margin: Lobulated-2 points Echogenic Foci: None-0 point Total Points for this nodule: 8 ACR Ti-Rads Category: TR5 This nodule should undergo ultrasound-guided FNA. Nodule #2. This nodule is located lateral to the above nodule Size: Measures 0.8 x 0.8 x 0.9 cm. This has slightly increased in size. Composition: Mixed cystic-solid- 1 point Echogenicity: Solid component is isoechoic compared to surrounding parenchyma-1 point Shape: Not truly wider than taller in the transverse plane-0 points Margin: Smooth-0 points Echogenic Foci: None-0 point Total points for this nodule: 5 ACR Ti-Rads Category: TR4 This nodule can be followed conservatively. LEFT THYROID LOBE: Measures 1.1 cm AP x 1.3 wide x 3.5 cm craniocaudal There are no nodules in the left lobe. LYMPH NODES: There is no significant adenopathy. IMPRESSION: 1. Two nodules in the right thyroid lobe, both slightly larger than the August 2019 study. The more lat eral of the two nodules is partially solid-partially cystic and can be followed. The larger of the t wo nodules registers as a TiRads category 5 nodule and requires ultrasound-guided FNA. It measures s lightly larger than 1 cm. 2. No nodules in the left lobe nor in the isthmus. 3. There is no significant lymphadenopathy. DATA REPOSITORY:
== END 2021-05-23 01:56 ==
PROVIDERS: PCP Student in an Organized Health Care Education/Training Program; Visit Provider Student in an Organized Health Care Education/Training Program
DX: E04.2 Nontoxic multinodular goiter (principal); E07.89 Other specified disorders of thyroid
CPT/HCPCS: 76536

== ENCOUNTER 2021-06-02 04:24 | Outpatient (CLI) | payer MEDICARE, MEDICAID, SELFPAY ==
[2021-06-02 13:30] LABS: ALT 66 U/L (14-59); AST 26 U/L (15-37); Albumin 3.4 g/dL (3.4-5.0); Alkaline Phosphatase 155 U/L (46-116); Anion Gap 10.7 mmol/L (3-11); BUN 14 mg/dL (7-18); Bilirubin, Total 0.4 mg/dL (0.2-1.0); CO2 24.3 mmol/L (21.0-32.0); CREATININE 1.6 mg/dL (0.55-1.02); Calcium 8.6 mg/dL (8.5-10.1); Chloride 105 mmol/L (98-107); Estimated GFR 32.05 (mL/min/1.73m2); Glucose 100 mg/dL (74-106); Magnesium 2.2 mg/dL (1.8-2.4); Potassium 4.1 mmol/L (3.5-5.1); Sodium 140 mmol/L (136-145); Total Protein 7.2 g/dL (6.4-8.2)
== END 2021-06-02 04:25 | disposition home or self-care (01) ==
PROVIDERS: PCP Student in an Organized Health Care Education/Training Program; Visit Provider Student in an Organized Health Care Education/Training Program
DX: N28.9 Disorder of kidney and ureter, unspecified (principal); Z91.89 Other specified personal risk factors, not elsewhere classified; F50.9 Eating disorder, unspecified; K58.9 Irritable bowel syndrome, unspecified
CPT/HCPCS: 36415; 80053; 83735

== ENCOUNTER 2021-10-10 06:45 | Emergency (ER) | payer OTHER, MEDICAID, SELFPAY ==
[2021-10-10 06:53] VITALS: BP 141/61; PULSE 61; TEMP 36.6; O2SAT 95
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
--- NOTE | 2021-10-10 07:21 | DI.CT_ITS ---
Exam(s) CT HEAD WO EXAM: CT HEAD WO CLINICAL HISTORY: fall headache. TECHNIQUE: Imaging Protocol: Axial computed tomography images with coronal and sagittal reformatted images were created and reviewed COMPARISON: No exams were available for comparison FINDINGS: There are no skull fractures nor fluid in the visualized paranasal sinuses. There is no evidence of intracranial hemorrhage, mass effect, or shift of midline structures. There are no extra-axial fluid collections. Ventricles somewhat prominent but sore overlying cortical sulc i. Abundant bilateral periventricular hypodensity also evident. This may be consistent confluent th e left myelination, given the history of multiple sclerosis here. Similar explanation for the atroph y. IMPRESSION: No acute intracranial findings on this noninfused CT scan of the brain. White matter findings as above are probably related to demyelinating disease, chronic small-vessel wh ite matter ischemic changes, and/or combination thereof. Result called by myself to ER physician RADIATION DOSE DELIVERED: 706.48mGy.cm Total DLP DATA REPOSITORY: All CT scans at this facility are submitted to the National Radiology Data Registry (NRDR) Dose Index Registry (DIR) with the [employer] (ACR). RADIATION OPTIMIZATION: All CT scans at this facility use at least one of these dose optimization te chniques: automated exposure control; mA and/or kV adjustment per patient size (includes targeted exa ms where dose is matched to clinical indication); or iterative reconstruction.
--- NOTE | 2021-10-10 07:53 | DI.VRAD_ITS ---
PROCEDURE INFORMATION: Exam: CT Head Without Contrast Exam date and time: 10/10/2021 7:21 AM Age: 70 years old Clinical indication: Injury or trauma; Concussion/head injury; Consciousness not specified; Patient HX: S/P fall, headache TECHNIQUE: Imaging protocol: Computed tomography of the head without contrast. Radiation optimization: All CT scans at this facility use at least one of these dose optimization techniques: automated exposure control; mA and/or kV adjustment per patient size (includes targeted exams where dose is matched to clinical indication); or iterative reconstruction. COMPARISON: PT PET CT STANDARD SKULL 09/26/2016 10:03 AM FINDINGS: Brain: No intracranial hemorrhage, mass effect or midline shift. Cerebral ventricles: There is mild cerebral atrophy and concordant ventriculomegaly.. Paranasal sinuses: Visualized paranasal sinuses are well aerated. Mastoid air cells: Visualized mastoid air cells are well aerated. Bones/joints: The calvarium is intact. Mild changes of hyperostosis frontalis interna are noted. Soft tissues: A few small air bubbles are noted in the subcutaneous tissue of the frontal scalp from recent injury. IMPRESSION: No acute intracranial abnormality. Dictated and Authenticated by: Amrit Kelly MD. Ordering:DANILO Luna MD
--- NOTE | 2021-10-10 08:20 | ED.PROG_ITS ---
Date of service: 10/10/21 Time of Service: 07:30 Medical Decision Making Divya Lucas was signed out to me at time of shift change by Dr. Carey with CT head pending, discharge paperwork prepared in anticipation of negative result. CT head reported as no acute process. I had a discussion with Patient regarding return to emergency department precautions, home care, and importance of outpatient follow-up. Pt verbalizes understanding of the plan and is amenable. Patient discharged to home with clear plan for outpatient follow-up. All questions were answered. Disposition decision was made weighing the risks and benefits of hospitalization versus outpatient treatment, the risk for further decompensation, and the patient's wishes. Medical Records Medical records reviewed: Yes I reviewed the patient's medical records. Imaging Data Radiologic Study: Attestation: I personally reviewed and interpreted this imaging study as follows: Radiologist's impression: EXAM: ? CT HEAD WO CLINICAL HISTORY: ? fall headache. ? TECHNIQUE:? Imaging Protocol: Axial computed tomography images with coronal and sagittal reformatted images were created and reviewed COMPARISON:? No exams were available for comparison FINDINGS: ?There are no skull fractures nor fluid in the visualized paranasal sinuses. There is no evidence of intracranial hemorrhage, mass effect, or shift of midline structures.? There are no extra-axial fluid collections.? Ventricles somewhat prominent but sore overlying cortical sulci.? Abundant bilateral per iventricular hypodensity also evident.? This may be consistent confluent the left myelination, given the history of multiple sclerosis here.? Similar explanation for the atrophy. IMPRESSION: No acute intracranial findings on this noninfused CT scan of the brain. White matter findings as above are probably related to demyelinating disease, chronic small-vessel white matter ischemic changes, and/or combination thereof. Sign Out Sign Out Data: Sign Out Comment: history of MS, rolled out of bed and hit her head on nightstand, closed forehead/scalp wound with 3 sutures, pending CT results and if negative likely discharge home. Last updated by Jeremy Carey MD at 10/10/21 07:20 Discharge Plan Disposition Patient Disposition: HOME Condition: Stable Discharge Details Clinical Impression: Fall, Laceration of head Primary Care Provider: Yadira Nunez ED Provider: Aminta Pandey Home Meds and New Rx's Prescriptions: Continued melatonin 10 mg capsule 20 mg PO HS PRN (Reason: sleep) nystatin 100,000 unit/gram ointment 1 applic topical TID Qty: 30 1RF Rx Instructions: Trial for rash acetaminophen-codeine 300-15 mg tablet 1 tab PO BID PRN (Reason: pain) Qty: 10 0RF Rx Instructions: Trial for pain .. pregabalin [Lyrica] 25 mg capsule 25 mg PO DAILY Qty: 90 1RF Rx Instructions: Reducing dose 2' nightmares magnesium hydroxide 400 mg (170 mg magnesium) tablet,chewable PO atenolol 50 mg tablet See Rx Instructions PO BID Qty: 225 3RF Dose Instruction: Take 50 mg (1 pill) AM and 75mg (1 1/2 pill) PM PO BID; Rx Instructions: Take 50 mg (1 pill) AM and 75mg (1 1/2 pill) PM PO BID; bupropion HCl [Wellbutrin XL] 150 mg tablet extended release 24 hr 450 mg PO DAILY Qty: 270 3RF epinephrine [EpiPen 2-Devin] 0.3 mg/0.3 mL auto-injector 0.3 mg IM ONCE Qty: 1 1RF pregabalin 50 mg capsule 50 mg PO .COMPLEX Qty: 90 1RF Rx Instructions: Continue @ 50mg artifi.tears(hypromellose)(PF) 1.7 % drops with applicator 1 drp ophthalmic (eye) 4-8XD PRN (Reason: dry eye(s)) Qty: 12 0RF fluticasone propion-salmeterol [Advair Diskus] 250-50 mcg/dose blister with device 1 inh inhalation Q12H Qty: 60 1RF Tetanus Vaccination 1 ea IM ONCE Qty: 1 0RF albuterol sulfate [ProAir HFA] 90 mcg/actuation HFA aerosol inhaler 1 - 2 puff Inhalation Q4-6H PRN Qty: 1 3RF Rx Instructions: DISPENSE ALBUTEROL INHALER BRAND WITH SPACER COVERED BY INSURANCE (DME) POCKET CHAMBER Spacer See Rx Instructions .ROUTE .MEDSUPPLY Qty: 1 0RF Rx Instructions: As directed morphine 15 mg tablet 7.5 mg PO DAILY MDD 7.5mg PRN (Reason: serious pain or shortness of breath) Qty: 3 0RF Hold Instructions: Home Medication placed on hold at Doctor's office Rx Instructions: Trial for SOB; may take for pain. levothyroxine 50 mcg capsule 50 mcg PO DAILY Qty: 90 1RF Hold Instructions: making her sick? hydroxyzine HCl 10 mg tablet 10 mg PO TID PRN (Reason: anxiety) Qty: 90 1RF clonazepam 0.5 mg tablet 0.5 mg PO Q12H MDD 1mg Qty: 56 0RF Rx Instructions: Fill Date 10/18/20 folic acid 1 MG tablet 1 mg PO DAILY Qty: 30 0RF Discharge Instructions Instructions: Laceration (ED) Additional Instructions: Return in 7-10 days to have the sutures evaluated for removal if you have spreading redness from the wound, yellow/white drainage from the wound, new or severe worsening pain return to the emergency department Please return immediately to the emergency department if you develop any new or worsening symptoms, if your condition does not improve as expected, or if you become otherwise concerned. It is extremely important that you call soon as possible to make an appointment to be seen in follow-up for this visit by your primary care doctor. Referrals: Yadira Nunez DO [Primary Care Provider] -
[2021-10-10 08:39] VITALS: BP 131/65; PULSE 58; TEMP 36.2; O2SAT 93
== END 2021-10-10 08:55 | disposition home or self-care (01) ==
PROVIDERS: Emergency Provider Student in an Organized Health Care Education/Training Program; PCP Student in an Organized Health Care Education/Training Program
DX: S01.01XA Laceration without foreign body of scalp, initial encounter (principal); Z87.891 Personal history of nicotine dependence; W06.XXXA Fall from bed, initial encounter; W22.09XA Striking against other stationary object, initial encounter
CPT/HCPCS: 12002; 99284; 70450; 99282

== ENCOUNTER 2021-10-27 12:32 | Outpatient (CLI) | payer OTHER, MEDICAID, SELFPAY ==
[2021-10-27 12:29] LABS: HGB 14.6 g/dL (11.2-15.7)
[2021-10-27 13:12] LABS: ALT 60 U/L (14-59); AST 31 U/L (15-37); Albumin 3.4 g/dL (3.4-5.0); Alkaline Phosphatase 169 U/L (46-116); Anion Gap 9.4 mmol/L (3-11); BUN 21 mg/dL (7-18); Bilirubin, Total 0.5 mg/dL (0.2-1.0); CO2 22.6 mmol/L (21.0-32.0); CREATININE 1.4 mg/dL (0.55-1.02); Calcium 8.8 mg/dL (8.5-10.1); Chloride 107 mmol/L (98-107); Estimated GFR 37.39 (mL/min/1.73m2); Glucose 127 mg/dL (74-106); Potassium 4.6 mmol/L (3.5-5.1); Sodium 139 mmol/L (136-145); Total Protein 7.4 g/dL (6.4-8.2)
== END 2021-10-27 12:33 | disposition home or self-care (01) ==
LOC: LBO 12:34
PROVIDERS: PCP Student in an Organized Health Care Education/Training Program; Visit Provider Student in an Organized Health Care Education/Training Program
DX: N28.9 Disorder of kidney and ureter, unspecified (principal); R19.01 Right upper quadrant abdominal swelling, mass and lump; F41.8 Other specified anxiety disorders
CPT/HCPCS: 36415; 51798; 80053; 99214; 99215; 81015; 85018

== ENCOUNTER 2021-10-31 15:32 | Outpatient (REF) | payer OTHER, MEDICAID, SELFPAY | END 2021-10-31 15:33 | disposition home or self-care (01) | LOC: LBN 15:32 | PROVIDERS: PCP Student in an Organized Health Care Education/Training Program; Visit Provider Student in an Organized Health Care Education/Training Program ==

== ENCOUNTER 2021-11-25 00:27 | Outpatient (CLI) | payer OTHER, MEDICAID, SELFPAY ==
--- OUTSIDE RECORDS SUMMARY | 2021-11-25 00:28 | XMS_ITS | Encounter Summary ---
:1950 Author Organization [facility] [place] [address] Care Team Providers Name Role Phone Yadira Nunez DO Primary Care Provider Encounter Details Date Type Department Care Team Description 07/06/2020 Orders Only Hematology/Oncology Evelyn Weber Pr imary malignant at [facility] A, POLICE AIDE neoplasm of right [address] lower lobe of lung [place], [place] HEMATOLOGY ONCO LOGY [phone] [place], [place] [phone] (Wo rk) Social History Tobacco Use Types Packs/Day Years Used Date Former Smoker Cigarettes 0.25 52 Smokeless Tobacco: Former User Q uit: 07/05/2019 Comments: 3 cigarettes a day for last 25 years Alcohol Use Standard Drinks/Week Comments No 0 (1 standard drink = 0.6 oz pure alcoho l) Sex Assigned at Date Recorded Female 07/30/2020 4:21 AM EDT documented as of this encounter Plan of Treatment Upcoming Encounters Date Type Specialty Care Team Description 11/28/2021 Hospital Encounter Radiology Harlan Parmar MD [facility] HEMATOLOGY/ONCOLOGY DEPT. [place], [place] [address] (Wo rk) 11/28/2021 Appointment Radiology Harlan Parmar M D [facility] HEMATOLOGY/ONCOLOGY DEPT. [place], [place] [address] (Kai fermin) 12/01/2021 Office Visit Hematology and Oncology Harlan Parmar MD [facility] DR HEMATOLOGY/ONCOLOGY DEPT. [place], [place] [address] (Wo rk) documented as of this encounter Visit Diagnoses Diagnosis Primary malignant neoplasm of right lowe r lobe of lung Malignant neoplasm of lower lobe, bronch us, or lung documented in this encounter Care Teams Ship'S Master Relationship Specialty Start Date End Date Yadira Nunez DO PCP - General Family Medicine 08/27/[address] [place] [address] [place] [address] documented as of this encounter
--- OUTSIDE RECORDS SUMMARY | 2021-11-25 00:28 | XMS_ITS | Encounter Summary ---
:1950 Author Organization [place] [address] Care Team Providers Name Role Phone Yadira Nunez DO Primary Care Provider Encounter Details Date Type Department Care Team Description 07/01/2020 Office Visit Hematology/Oncology Nellie Parmar MD [facility] DR HEMATOLOGY/[place] [address] Primary malignant at [facility] Evelyn Weber, SERVICE [employer] [address] [place] [address] [place] [address] neoplasm of right [address] [place] [address] Drive [place] [address] Social History Tobacco Use Types Packs/Day Years Used Date Former Smoker Cigarettes 0.25 52 Smokeless Tobacco: Former User Q uit: 07/05/2019 Comments: 3 cigarettes a day for last 25 years Alcohol Use Standard Drinks/Week Comments No 0 (1 standard drink = 0.6 oz pure alcoho l) Sex Assigned at Date Recorded Female 07/30/2020 4:21 AM EDT documented as of this encounter Last Filed Vital Signs Vital Sign Reading Time Taken Comments Blood Pressure 138/70 07/01/2020 9:09 AM EDT Pulse 76 07/01/2020 9:09 AM EDT Temperature 36.1 ??C (97 ??F) 07/01/2020 9:09 AM EDT Respiratory Rate 20 07/01/2020 9:09 AM EDT Oxygen Saturation 93% 07/01/2020 9:09 AM EDT Inhaled Oxygen Concentration - - Weight 63.8 kg (140 lb 9.6 oz) 07/01/2020 9:09 AM EDT Height 152.5 cm (5' 0.04) 07/01/2020 9:09 AM EDT Body Mass Index 27.42 07/01/2020 9:09 AM EDT documented in this encounter Progress Notes Evelyn Weber APRN - 07/01/2020 9:00 AM EDT Subjective: Patient ID: Divya Mobley Friend is a 69 y.o. female. Patient Active Problem List Diagnosis Code ??? Primary malignant neoplasm of right lower lobe of lung C34.31 ??? 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 difficile and prednisone for autoimmune colitis. Observation since. INTERVAL HPI 07/01/20 Divya Pack Friend is a 69 yo female diagnosed 09/16 with stage IV RLL adenocarcinoma. (See history assummarized above.) Divya return to the [facility] oncology clinic in [facility] alone today for ongoing follow-up and surveillance. Divya has abstained from cigarette smoking for one year and I congratulated her on that. Her also quit 2 weeks later and that has lended additional support. She reports becoming short of breath with activity such as walking. She says this is unchanged from previous visits. She tells me she is always out of breath. She says her PCP has adjusted her inhalers but it didn't help much. She denies new cough or chest pain. Divya has a number of additional worries. She thinks her thyroid function is worse because she hasgained about 10 pounds and is worried about thyroid nodules. She also has had some difficulty with urination. She tells me her PCP is following her on both of these issues. Divya says she is trying to eat healthier. We talked about her diet and cutting down on breads andpastas, which she eats regularly. She has increased water and cut out soda and I encouraged her to maintain those changes. She reports difficulty getting exercise due to her dyspnea and MS. We talked about regular use of hand weights and stretch bands to increase muscle mass. She denies new bony or muscle aches or pains. Allergies Allergen Reactions ??? Bee Sting [Hymenoptera Allergenic Extract] Anaphylaxis ??? Contrast [Iodine And Iodide Containing Products] Hives, Shortness Of Breath, Itching and Palpitations ??? Cortisone Other (See Comments) Pt. States she passed out ??? Naproxen ??? Nickel Rash ??? Penicillins ??? Sulfa (Sulfonamide Antibiotics) Current Medications ??? fluticasone propion-salmeteroL (ADVAIR) 250-50 mcg/dose Disk with Device ??? gabapentin (Neurontin) 100 mg Capsule ??? hydrOXYzine (Atarax) 10 mg Tablet ??? levothyroxine (Synthroid) 50 mcg Tablet ??? magnesium oxide (Mag-Ox) 400 mg (241.3 mg magnesium) Tablet ??? escitalopram oxalate (LEXAPRO) 5 mg Tablet ??? atenolol (TENORMIN) 50 mg Tablet ??? folic acid (FOLVITE) 1 mg Tablet ??? prochlorperazine (COMPAZINE) 10 mg Tablet ??? buPROPion (WELLBUTRIN XL) 300 mg Tablet Extended Release 24 hr ??? clonazePAM (KLONOPIN) 1 mg Tablet ??? albuterol 90 mcg/actuation HFA Aerosol Inhaler ??? loperamide (IMODIUM) 2 mg Capsule ??? triamcinolone (KENALOG) 0.1 % Lotion ??? EPINEPHrine 0.3 mg/0.3 mL Auto-Injector Review of Systems Constitutional: Negative. HENT: Negative. Eyes: Eyes feel burning lately Respiratory: Positive for shortness of breath. Negative for cough. With exertion Cardiovascular: Negative. Gastrointestinal: Feels bloated sometimes Genitourinary: Positive for difficulty urinating. Sometimes feels like she can't void Musculoskeletal: Negative. Skin: Negative. Neurological: Negative for dizziness and headaches. Psychiatric/Behavioral: Negative. Objective: Physical Exam Vitals reviewed. Constitutional: General: She is not in acute distress. Appearance: Normal appearance. Eyes: General: No scleral icterus. Cardiovascular: Rate and Rhythm: Normal rate and regular rhythm. Pulmonary: Breath sounds: Normal breath sounds. No wheezing or rales. Musculoskeletal: Right lower leg: No edema. Left lower leg: No edema. Lymphadenopathy: Cervical: No cervical adenopathy. Skin: General: Skin is warm and dry. Neurological: Mental Status: She is alert and oriented to person, place, and time. Coordination: Coordination normal. Psychiatric: Mood and Affect: Mood normal. Thought Content: Thought content normal. BP 138/70 (Patient Position: Sitting) Pulse 76 Temp 36.1 ??C (97 ??F) (Temporal) Resp 20 Ht 152.5 cm (5' 0.04) Wt 63.8 kg (140 lb 9.6 oz) SpO2 93% BMI 27.42 kg/m?? LABS 07/02/20 WBC 11.66; ANC 7.95; H/H 13.2/ 40.1; PLT 280; BUN 15; CREAT 1.3; ALP 133; ALT 42; AST 21; BILI 0.4. RECENT IMAGING 06/16/20 - CXR - Unchanged nodular infiltrates in lateral aspect of left lung and RUL. Nodular infiltrate in left upper lobe not evident on CXR of 07/19. Recommend CT. Assessment and Plan: Assessment: Divya Lucas is a 69 yo female diagnosed 09/16 with stage IV RLL adenocarcinoma. (See history assummarized above.) Divya return to the [facility] oncology clinic in [facility] alone today for ongoing follow-up and surveillance. Peg Avery is doing about the same as her last visit. Her breathing issues are the same. No new muscleor bony aches. Stage IV lung cancer has previously remained stable, However, Divya will need a Chest CT for follow-up of new left nodular infiltrate noted on CXR of . Plan: Chest CT w/contrast. RTC in 2-[address] to discuss findings with Dr. Parmar. documented in this encounter Plan of Treatment Upcoming Encounters Date Type Specialty Care Team Description 11/28/2021 Hospital Encounter Radiology Harlan Parmar MD [facility] DR HEMATOLOGY/ONCOLOGY DEPT. [place], [place] [address] (Wo rk) 11/28/2021 Appointment Radiology Harlan Parmar M D [facility] DR HEMATOLOGY/ONCOLOGY DEPT. [place], [place] [address] (Wo rk) 12/01/2021 Office Visit Hematology and Oncology Harlan Parmar MD [facility] DR HEMATOLOGY/ONCOLOGY DEPT. [place], [place] [address] (Wo rk) documented as of this encounter Visit Diagnoses Diagnosis Primary malignant neoplasm of right lowe r lobe of lung Malignant neoplasm of lower lobe, bronch us, or lung documented in this encounter Care Teams Fire Prevention Engineer Relationship Specialty Start Date End Date Yadira Nunez DO PCP - General Family Medicine 08/27/[address] [place] [id number] documented as of this encounter
--- OUTSIDE RECORDS SUMMARY | 2021-11-25 00:28 | XMS_ITS | Encounter Summary ---
:1950 Author Organization [facility] [place] [address] Care Team Providers Name Role Phone Yadira Nunez DO Primary Care Provider Encounter Details Date Type Department Care Team Description 08/26/2020 Office Visit Hematology/Oncology Nellie Parmar MD [facility] DR HEMATOLOGY/[place] [address] Primary malignant neoplasm of right lowe r lobe of lung; at [facility] Evelyn Weber APRN [address] [place] [address] [place] [address] Hypothyroidism due to drugs [address] [place] [address] [phone] Social History Tobacco Use Types Packs/Day Years [...] Sign Reading Time Taken Comments Blood Pressure 129/54 08/26/2020 3:32 PM EDT Pulse 76 08/26/2020 3:32 PM EDT Temperature 36.3 ??C (97.3 ??F) 08/26/2020 3:32 PM EDT Respiratory Rate 20 08/26/2020 3:32 PM EDT Oxygen Saturation 92% 08/26/2020 3:32 PM EDT Inhaled Oxygen Concentration - - Weight 64.1 kg (141 lb 5 oz) 08/26/2020 3:34 PM EDT Height 152.5 cm (5' 0.04) 08/26/2020 3:32 PM EDT Body Mass Index 27.56 08/26/2020 3:32 PM EDT documented in this encounter Progress Notes Harlan Parmar MD - 08/26/2020 3:30 PM EDT Subjective: Patient ID: Divya Mobley Friend is a 69 y.o. female. 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 difficile and prednisone for autoimmune colitis. Observation since. I am seeing the patient in the [facility]. She has a history of metastatic lung cancer. She was treated with chemotherapy/immunotherapy over 3 years ago. She has been off therapy since 01/16. Divya comes to clinic today for f/u office visit for lung cancer surveillance and to review her PET scan done 08/25/20. This scan was done to follow-up on the CT scan which reportedly showed new nodules. Most of her complaints are centered around being isolated with the pandemic. She does feel more fatigue when she walks. She did have another fall and hurt her ankle. She feels her MS is a bit worse Patient Active Problem List Diagnosis Code ??? Primary malignant neoplasm of right lower lobe of lung C34.31 ??? 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 Thyroid nodule 0.8 cm right lower pole on US (+PET activity) E04.1 Anxiety Multiple sclerosis Current Outpatient Medications: ??? hydrOXYzine (Atarax) 10 mg Tablet, TAKE ONE TABLET BY MOUTH THREE TIMES A DAY NEEDED FOR ANXIETY, Disp: , Rfl: ??? levothyroxine (Synthroid) 50 mcg Tablet, Take 1 tablet by mouth daily., Disp: 90 tablet, Rfl: 3 ??? magnesium oxide (Mag-Ox) 400 mg (241.3 mg magnesium) Tablet, Take 400 mg by mouth daily. Take one PO daily., Disp: , Rfl: ??? albuterol 90 mcg/actuation HFA Aerosol Inhaler, Inhale 2 puffs into the lungs every 4 hours as needed for Wheezing. Use with spacer, Disp: , Rfl: ??? escitalopram oxalate (LEXAPRO) 5 mg Tablet, Take 10 mg by mouth daily., Disp: , Rfl: 0 ??? atenolol (TENORMIN) 50 mg Tablet, Take 1 tablet by mouth 2 times daily. (Patient taking differently: Take 50 mg by mouth 2 times daily. 1 tab am, 1.5 tabs pm Indications: Paroxysmal Supraventricular Tachycardia), Disp: 90 tablet, Rfl: 3 ??? folic acid (FOLVITE) 1 mg Tablet, Take 1 tablet by mouth daily., Disp: 90 tablet, Rfl: 3 ??? buPROPion (WELLBUTRIN XL) 300 mg Tablet Extended Release 24 hr, take 3 tablet by mouth once daily, Disp: , Rfl: 0 ??? clonazePAM (KLONOPIN) 1 mg Tablet, 0.5 mg., Disp: , Rfl: ??? fluticasone propion-salmeteroL (ADVAIR) 250-50 mcg/dose Disk with Device, INHALE 1 DOSE BY MOUTHEVERY 12 HOURS, Disp: , Rfl: ??? loperamide (IMODIUM) 2 mg Capsule, Take 1 capsule by mouth 4 times daily as needed for Diarrhea.(Patient not taking: Reported on 07/01/2020), Disp: 30 tablet, Rfl: 0 ??? triamcinolone (KENALOG) 0.1 % Lotion, Apply topically 2 times daily. (Patient not taking: Reported on 07/01/2020), Disp: 60 mL, Rfl: 3 ??? prochlorperazine (COMPAZINE) 10 mg Tablet, Take 1 tablet by mouth every 6 hours as needed for Nausea. (Patient not taking: Reported on 08/26/2020), Disp: 30 tablet, Rfl: 1 ??? EPINEPHrine 0.3 mg/0.3 mL Auto-Injector, Reported on 10/09/2016, Disp: , Rfl: 0 Review of Systems Constitutional: Negative for fatigue, fever and unexpected weight change. HENT: Negative for nosebleeds. Respiratory: Dry cough and shortness of breath. Cardiovascular: Negative for chest pain and palpitations. Gastrointestinal: Negative for abdominal pain. Infrequent nausea and diarrhea. Musculoskeletal: Negative for back pain. Skin: Negative for rash. Neurological: Negative for speech difficulty. Hematological: Negative for adenopathy. Does not bruise/bleed easily. All other systems reviewed and are negative. Objective: Physical Exam Constitutional: She is oriented to person, place, and time. She appears well- nourished. No distress. HENT: Mouth/Throat: No oropharyngeal exudate. Eyes: No scleral icterus. Cardiovascular: Normal rate, regular rhythm and normal heart sounds. Pulmonary/Chest: Effort normal and breath sounds normal. She has no wheezes. Abdominal: Soft. Bowel sounds are normal. She exhibits no mass. There is no tenderness. Musculoskeletal: She exhibits no edema. Lymphadenopathy: She has no cervical adenopathy. Neurological: She is alert and oriented to person, place, and time. Skin: No rash noted. BP 129/54 (Patient Position: Sitting) Pulse 76 Temp 36.3 ??C (97.3 ??F) (Temporal) Resp 20 Ht 152.5 cm (5' 0.04) Wt 64.1 kg (141 lb 5 oz) SpO2 92% BMI 27.56 kg/m?? PET scan, I reviewed the images personally: Narrative & Impression EXAMINATION: NM PET CT SKULL BASE TO MID-THIGH ?? CLINICAL HISTORY: Non-small cell lung cancer, post treatment, no evidence of disease ?? TECHNIQUE: Following IV injection of 60-cuddmn-1-deoxyglucose (FDG) a standard uptake of approximately 60 minutes, a noncontrast CT scan followed by a PET scan were acquired from the base of the skull to mid thighs. The noncontrast CT was used for anatomic localization and photon attenuation correction of the PET scan. No oral contrast was administered. ?? Blood glucose level: 141 (mg/dL) ?? FDG dose: 9.6 mCi Reference liver mean SUV: 1.9 current study, 1.8 prior exam 09/30/2019 ?? COMPARISON: PET/CT 09/03/[address] 07[facility]09/[facility] ?? FINDINGS: ?? HEAD/NECK: Small FDG avid right lobe thyroid nodule (axial image 53), demonstrates increased intensity compared to prior. Diffuse right neck muscular activity, most likely secondary to recent muscle use or strain/tension. Normal activity in all other regions of the neck and visualized lower head. ?? CHEST: Multiple mixed density (subsolid and ground glass) FDG avid pulmonary nodules throughout both lungs are not significantly changed in size dating back to the 09/03/2019 CT and demonstrates similar to slightly increased metabolic activity. For example, unchanged school admissions representative 9 mm nodule in the right upper lobe (axial image 77); SUV max is 7 as compared to 5.8 previously. No new pulmonary nodules identified. Interval small FDG avid left axillary lymph nodes, similar to slightly greater than background mediastinal blood pool, and likely reactive nodes related to recent COVID vaccination. Interval small CT visualized left pleural effusion. Coronary artery and aortic calcifications as before. ?? ABDOMEN/PELVIS: Normal activity in all other soft tissue regions. Incidental CT visualized marked diffuse diffuse hepatic steatosis, liver measuring 4.5 Hounsfield units as compared to 29 HU previously. Vascular calcifications. ?? SKELETON/EXTREMITIES: Normal marrow activity in the axial and visualized appendicular skeleton. Diffuse activity throughout several muscle groups bilaterally, most pronounced within the right thoracolumbar paraspinal and left gluteal muscles, consistent with recent muscle use or strain/tension. Unchanged non-FDG avid small sclerotic lesion within the left iliac bone. ?? IMPRESSION 1. Multiple bilateral FDG avid mixed density pulmonary nodules, largely unchanged in size and stable to slightly increased in activity compared to prior PET/CT of 09/03/2019. 2. No new sites of suspected active malignancy or metastasis. 3. Small FDG avid right thyroid nodule shows increased activity, overall similar in appearance to the 10/24/2018 PET/CT, representing a benign versus malignant thyroid neoplasm. ?? I have personally reviewed the image(s) and the resident's interpretation and agree with the findings, Joelle Lewis MD at 08/25/2020 12:47 PM ?? Assessment and Plan: 69-year-old female with stage IV adenocarcinoma of the lung. She had 4 months of combined chemo/immunotherapy and had a nice response which has been durable. Current PET scan is essentially stable compared to a year ago so I do not think she is showing us any evidence of significant progression of her underlying cancer. Likewise I do not see that contributing to her symptoms. I recommended continued observation alone. The patient was in agreement. I encouraged her to try to do a bit more ambulation safely especially outside as the warmer months arrive. We will see her back in about 3 months to continue monitoring her. I will try to hold off on imagingfor 6 months. documented in this encounter Plan of Treatment Upcoming Encounters Date Type Specialty Care Team Description 11/28/2021 Hospital Encounter Radiology Harlan Parmar MD [facility] DR HEMATOLOGY/ONCOLOGY DEPT. [place], [place] [address] (Wo rk) 11/28/2021 Appointment Radiology Harlan Parmar M D [facility] DR HEMATOLOGY/ONCOLOGY DEPT. [place], [place] [address] (Wo rk) 12/01/2021 Office Visit Hematology and Oncology Harlan Parmar MD [facility] DR HEMATOLOGY/ONCOLOGY DEPT. [place], [place] [address] (Wo rk) documented as of this encounter Visit Diagnoses Diagnosis Primary malignant neoplasm of right lowe r lobe of lung Malignant neoplasm of lower lobe, bronch us, or lung Hypothyroidism due to drugs Other iatrogenic hypothyroidism documented in this encounter Care Teams Director Patient Accounting Relationship Specialty Start Date End Date Yadira Nunez DO PCP - General Family Medicine 08/27/[address] [place] [address] documented as of this encounter
--- OUTSIDE RECORDS SUMMARY | 2021-11-25 00:28 | XMS_ITS | Encounter Summary ---
:1950 Author Organization [facility] [place] [address] Care Team Providers Name Role Phone Mayra Yadirachapo Bradford DO Primary Care Provider Encounter Details Date Type Department Care Team Description 07/09/2020 Ancillary Procedure Radiology Library at Harlan Parmar MD [facility] HEMATOLOGY/[place] [address] DEPT. [phone] [place], [place] [address] (Kai fermin) Social History Tobacco Use Types Packs/Day Years [...] 11/28/2021 Hospital Encounter Radiology Harlan Parmar MD [facility] HEMATOLOGY/ONCOLOGY DEPT. [place], [place] [address] (Kai fermin) 11/28/2021 Appointment Radiology Harlan Parmar M D [facility] HEMATOLOGY/ONCOLOGY DEPT. [place], [place] [address] (Kai fermin) 12/01/2021 Office Visit Hematology and Oncology Harlan Parmar MD [facility] HEMATOLOGY/ONCOLOGY DEPT. [place], [place] [address] (Wo rk) documented as of this encounter Procedures Procedure Name Priority Date/Time Associated Diagnosis Comme nts FILM LIBRARY Routine 07/09/2020 12:00 AM Results for this STORAGE ONLY CT EDT procedure ar e in CHEST the results section. documented in this encounter Results Film Library- Storage Only CT Chest (07/09/2020 12:00 AM EDT) Specimen (Source) Anatomical Location Collection Method / Collectio n Time Received Time / Laterality Volume Narrative RAD - 07/22/2020 10:44 AM EDT This exam is auto-finalizing. It's purpo se is for storage only. Harlan Parmar MD IMG FILM LIBRARY ORDERABLES Performing Organization Address City/State/ZIP Code Phon e Number RAD [place], [place] documented in this encounter Visit Diagnoses Not on filedocumented in this encounter Care Teams Life Skills Worker Relationship Specialty Start Date End Date Yadira Nunez DO PCP - General Family Medicine 08/27/[address] [place] [address] documented as of this encounter
--- OUTSIDE RECORDS SUMMARY | 2021-11-25 00:28 | XMS_ITS | Encounter Summary ---
:1950 Author Organization [place] [address] Care Team Providers Name Role Phone Yadira Nunez DO Primary Care Provider Reason for Visit - Closed Specialty Diagnoses / Procedures Referred By Contact Refer red To Contact Procedures Yadira Nunez DO Film Library- Storage Only DX [address] [facility] [place] [address] Referral ID Status Reason Start Date Expiration Date Visits Requ ested Visits Authorized [id number] Closed 06/17/2020 06/17/2021 1 1 Encounter Details Date Type Department Care Team Description 06/16/2020 Ancillary Procedure Radiology Library at Jozef Nunez [facility], [facility] [address] [place] [id number] [phone] (Wo rk) Social History Tobacco Use Types [...] 11/28/2021 Hospital Encounter Radiology Harlan Parmar MD [facility] DR HEMATOLOGY/ONCOLOGY DEPT. [place], [place] [address] (Wo rk) 11/28/2021 Appointment Radiology Harlan Parmar M D [facility] HEMATOLOGY/ONCOLOGY DEPT. [place], [place] [address] (Wo rk) 12/01/2021 Office Visit Hematology and Oncology Harlan Parmar MD [facility] HEMATOLOGY/ONCOLOGY DEPT. [place], [place] [address] (Wo rk) documented as of this encounter Procedures Procedure Name Priority Date/Time Associated Diagnosis Comme nts FILM LIBRARY Routine 06/16/2020 12:00 AM Results for this STORAGE ONLY DX EDT procedure ar e in CHEST the results section. documented in this encounter Results Film Library- Storage Only DX Chest (06/16/2020 12:00 AM EDT) Specimen (Source) Anatomical Location Collection Method / Collectio n Time Received Time / Laterality Volume Narrative RAD - 06/17/2020 8:55 AM EDT This exam is auto-finalizing. It's purpo se is for storage only. Yadira Nunez DO [facility] FILM LIBRARY ORDERABLES Performing Organization Address City/State/ZIP Code Phon e Number [place], [place] documented in this encounter Visit Diagnoses Not on filedocumented in this encounter Care Teams Principal Librarian Relationship Specialty Start Date End Date Yadira Nunez DO PCP - General Family Medicine 08/27/[address] [place] [id number] documented as of this encounter
--- OUTSIDE RECORDS SUMMARY | 2021-11-25 00:28 | XMS_ITS | Clinical Summary ---
:1950 Author Organization [place] [address] Care Team Providers Name Role Phone Yadira Nunez DO Primary Care Provider Allergies Active Allergy Reactions Severity Noted Date Comments Hymenoptera Allergenic Anaphylaxis High 11/20/2016 Extract Iodine And Iodide Hives, Shortness Of High 11/20/2016 Containing Products Breath, Itching, Palpitations Cortisone Other (See Comments) High 12/26/2016 Pt[address] [place] she passed out Naproxen 10/09/2016 Nickel Rash 10/05/2017 Penicillins 10/09/2016 Sulfa (Sulfonamide 10/09/2016 Antibiotics) Medications Medication Sig Dispensed Refills Start Date End Date Status clonazePAM (KLONOPIN) 1 0.5 mg. 0 10/25/2015 Active mg Tablet buPROPion (WELLBUTRIN take 3 tablet by 0 09/18/2016 Active XL) 300 mg Tablet mouth once daily Extended Release 24 hr EPINEPHrine 0.3 mg/0.3 Reported on 0 08/30/2016 Active mL Auto-Injector 10/09/2016 folic acid (FOLVITE) 1 Take 1 tablet by 90 tablet 3 11/20/2016 Active mg TabletIndications: mouth daily. Primary malignant neoplasm of right lower lobe of lung prochlorperazine Take 1 tablet by 30 tablet 1 11/20/2016 Active (COMPAZINE) 10 mg mouth every 6 TabletIndications: hours as needed Primary malignant for Nausea. neoplasm of right lower lobe of lung Additional Information Patient not taking. Reported on 08/26/2020 triamcinolone (KENALOG) 0.1 % Apply topically 2 times 60 mL 3 12/01/2016 Active LotionIndications: Primary daily. malignant neoplasm of right lower lobe of lung Additional Information Patient not taking. Reported on 07/01/2020 atenolol (TENORMIN) 50 mg Take 1 tablet by 90 tablet 3 018 Active TabletIndications: Primary mouth 2 times daily. malignant neoplasm of right lower lobe of lung Additional Information Patient taking differently: 50 mg Oral 2 TIMES DAILY, 1 tab am, 1.5 tabs pm, Indications: paroxysmal supraventricular tachycardia, Reported on 07/23/2017 loperamide (IMODIUM) 2 mg Take 1 capsule by 30 tablet 0 2017 Active CapsuleIndications: Primary mouth 4 times daily malignant neoplasm of right as needed for lower lobe of lung, Clostridium Diarrhea. difficile colitis Additional Information Patient not taking. Reported on 07/01/2020 escitalopram oxalate (LEXAPRO) Take 10 mg by mouth 0 01/11/2018 Active 5 mg Tablet daily. albuterol 90 mcg/actuation HFA Inhale 2 puffs into the 0 Active Aerosol Inhaler lungs every 4 hours as needed for Wheezing. Use with spacer magnesium oxide (Mag-Ox) 400 Take 400 mg by mouth 0 02/16/2017 Active mg (241.3 mg magnesium) Tablet daily. Take one PO daily. levothyroxine (Synthroid) 50 Take 1 tablet by mouth 90 tablet 3 10/31/2019 Active mcg TabletIndications: daily. Hypothyroidism due to drugs fluticasone propion-salmeteroL INHALE 1 DOSE BY MOUTH 0 03/17/2020 Active (ADVAIR) 250-50 mcg/dose Disk EVERY 12 HOURS with Device hydrOXYzine (Atarax) 10 mg TAKE ONE TABLET BY 0 05/31 Active Tablet MOUTH THREE TIMES A DAY NEEDED FOR ANXIETY Active Problems Problem Noted Date Thyroid nodule 0.8 cm right lower pole on US (+PET act ivity) 10/31/2019 Hypothyroidism due to drugs 11/27/2016 Primary malignant neoplasm of right lower lobe of lung 11/20/2016 Encounters Date Type Specialty Care Team Description 2021 Telephone Hematology and [facility] 11/17/2021 Orders Only Hematology and Harlan Parmar MD Primary malignant neoplasm of right lower lobe of lung; Oncology Hypothyroidism due to drugs from Last 3 Months Family History Medical History Relation Comments Lupus Brother Diabetes Father Colorectal Cancer Mother Diabetes Sister Relation Status Comments Brother Father Mother Sister Social History Tobacco Use Types Packs/Day Years Used Date Former Smoker Cigarettes 0.25 52 Smokeless Tobacco: Former User Q uit: 07/05/2019 Tobacco Cessation: Ready to Quit: No; Co unseling Given: No Comments: 3 cigarettes a day for last 25 years Alcohol Use Standard Drinks/Week Comments No 0 (1 standard drink = 0.6 oz pure alcoho l) Sex Assigned at Date Recorded Female 07/30/2020 4:21 AM EDT Last Filed Vital Signs Vital Sign Reading [...] Mass Index 27.56 08/26/2020 3:32 PM EDT Plan of Treatment Upcoming Encounters Date Type Specialty Care Team Description 11/28/2021 Hospital Encounter Radiology Harlan Parmar MD [facility] DR HEMATOLOGY/ONCOLOGY DEPT. [place], [place] [address] (Wo rk) 11/28/2021 Appointment Radiology Harlan Parmar M D [facility] DR HEMATOLOGY/ONCOLOGY DEPT. [place], [place] [address] (Wo rk) 12/01/2021 Office Visit Hematology and Oncology Harlan Parmar MD [facility] HEMATOLOGY/ONCOLOGY DEPT. [place], [place] [address] (Wo rk) Health Maintenance Due Date Last Done Comments Covid-19 Vaccine (#1) 1957 Pneumoccocal Vaccine: 65+ (1 - PCV) 1958 Hepatitis C Screening 1970 Tdap adult 11/19/1971 Tetanus vaccine 11/19/1971 Breast Cancer Share Decision Needed 1992 Diabetes Screening (HgbA1C or Glucose) 1992 Breast Cancer screening 2002 Zoster vaccine (1 of 2) 2002 Advance Directive 11/19/2007 Bone Density Scan 2017 Influenza (Flu) vaccine (1 of 1 - 12/01/2021 Influenza standard series) Colonoscopy 12/21/2024 12/21/2014, 12/21/2014 Medical Devices Explanted Type Area Cross Tie Maker Device Shelf Model / Identifier Expiration Serial / Date Lot Port,Ct,Low Profile,Vaccess ([id number])-12/26/2016 IMPLANTS Right: Bard Access 08/30/2018 [id number] / Implanted: Qty: 1 on 12/26/2016 by Angelito Faria APRN [facility] - 0612 [id number] / Explanted: Qty: 1 on 10/05/2017 by Angelito Faria, ROBLES Wall [id number] Insurance Payer Benefit Plan / Subscriber ID Effective Dates Phone Addre ss Type Group MEDICARE MEDICARE PART [id number] 2019-Prese [phone] [place] [address] CIGNA CIGNA PPO [id number] 2014-Presen [phone] [id number] [place] [address] [place] [id number] 2020-Presen [phone] [address] [place] [address] Advance Directives Latest Code Status on File Code Status Date Activated Date Inactivated Comments Full Code 10/05/2017 12:57 PM 10/06/2017 4:35 AM Does patient have capacity to make decision: Yes Full Code 12/26/2016 11:25 AM 12/27/2016 4:34 AM Does patient have capacity to make decision: Yes Full Code 10/19/2016 9:32 AM 10/19/2016 3:07 PM Does patient have capacity to make decision: Yes Care Teams Bolt Sawyer Relationship Specialty Start Date End Date Yadira Nunez DO PCP - General Family Medicine 08/27/[address] [place] [address]
--- OUTSIDE RECORDS SUMMARY | 2021-11-25 00:28 | XMS_ITS | Encounter Summary ---
:1950 Author Organization [facility] [place] [address] Care Team Providers Name Role Phone Yadira Nunez DO Primary Care Provider Encounter Details Date Type Department Care Team Description 11/05/2019 Orders Only Pulmonology at [facility] [place] [address] Social History Tobacco Use Types Packs/Day Years [...] 11/28/2021 Hospital Encounter Radiology Harlan Parmar MD [facility] DR HEMATOLOGY/ONCOLOGY DEPT. [place], [place] [address] (Kai fermin) 11/28/2021 Appointment Radiology Harlan Parmar M D [facility] HEMATOLOGY/ONCOLOGY DEPT. [place], [place] [address] (Kai fermin) 12/01/2021 Office Visit Hematology and Oncology Harlan Parmar MD [facility] HEMATOLOGY/ONCOLOGY DEPT. [place], [place] [address] (Kai fermin) documented as of this encounter Visit Diagnoses Not on filedocumented in this encounter Care Teams Knot Borer Relationship Specialty Start Date End Date Yadira Nunez DO PCP - General Family Medicine 08/27/[address] [place] [address] documented as of this encounter
--- OUTSIDE RECORDS SUMMARY | 2021-11-25 00:28 | XMS_ITS | Encounter Summary ---
:1950 Author Organization [facility] [place] [address] Care Team Providers Name Role Phone Yadira Nunze DO Primary Care Provider Reason for Visit Diagnostic Test (Routine) - Closed Specialty Diagnoses / Procedures Referred By Contact Refer red To Contact Radiology Diagnoses Primary malignant neoplasm of right lower lobe of lung Harlan Parmar MD [facility] Rad Nuclear Med Procedures NM PET CT Skull Base to Mid-thigh [facility] HEMATOLOGY/[place] [address] [place] [address] Referral ID Status Reason Start Date Expiration Date Visits V isits Requested Authorized [id number] Closed Specialty 07/22/2020 01/21/2022 1 1 Service Requested Encounter Details Date Type Department Care Team Description 08/03/2020 Hospital Encounter Nuclear Medicine at Harlan Parmar Cancelnaomy Brock MD (P-FAMILY/PERSONAL [facility] MEDICAL EMERGENCY /PT ILL) [facility] [address] [place] HEMATOLOGY/ONCOL [address] OGY DEPT. [phone] [place] [address] Social History Tobacco Use Types Packs/Day Years Used Date Former Smoker Cigarettes 0.25 52 Smokeless Tobacco: Former User Q uit: 07/05/2019 Comments: 3 cigarettes a day for last 25 years Alcohol Use Standard Drinks/Week Comments No 0 (1 standard drink = 0.6 oz pure alcoho l) Sex Assigned at Date Recorded Female 07/30/2020 4:21 AM EDT documented as of this encounter Medications at Time of Discharge Medication Sig Dispensed Refills Start Date End Date fluticasone INHALE 1 DOSE BY 0 03/17/2020 propion-salmeteroL (ADVAIR) MOUTH EVERY 12 HOURS 250-50 mcg/dose Disk with Device hydrOXYzine (Atarax) 10 mg TAKE ONE TABLET BY 0 0 06/16/2020 Tablet MOUTH THREE TIMES A DAY NEEDED FOR ANXIETY levothyroxine (Synthroid) Take 1 tablet by 90 tablet 3 10/02 50 mcg TabletIndications: mouth daily. 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 Take one PO Tablet daily. albuterol 90 mcg/actuation Inhale 2 puffs into 0 HFA Aerosol Inhaler the lungs every 4 hours as needed for Wheezing. Use with spacer escitalopram oxalate Take 10 mg by mouth 0 2017 (LEXAPRO) 5 mg Tablet daily. loperamide (IMODIUM) 2 mg Take 1 capsule by 30 tablet 0 CapsuleIndications: Primary mouth 4 times daily malignant neoplasm of right as needed for lower lobe of lung, Diarrhea. Clostridium difficile colitis atenolol (TENORMIN) 50 mg Take 1 tablet by 90 tablet 3 05/03 TabletIndications: Primary mouth 2 times daily. malignant neoplasm of right lower lobe of lung triamcinolone (KENALOG) 0.1 Apply topically 2 60 mL 3 0 12/01/2016 % LotionIndications: times daily. Primary malignant neoplasm of right lower lobe of lung folic acid (FOLVITE) 1 mg Take 1 tablet by 90 tablet 3 11/01 TabletIndications: Primary mouth daily. malignant neoplasm of right lower lobe of lung prochlorperazine Take 1 tablet by 30 tablet 1 11/20/2016 (COMPAZINE) 10 mg mouth every 6 hours TabletIndications: Primary as needed for malignant neoplasm of right Nausea. lower lobe of lung buPROPion (WELLBUTRIN XL) take 3 tablet by 0 08/31 300 mg Tablet Extended mouth once daily Release 24 hr EPINEPHrine 0.3 mg/0.3 mL Reported on 0 7 Auto-Injector 10/09/2016 clonazePAM (KLONOPIN) 1 mg 0.5 mg. 0 6 Tablet documented as of this encounter Plan of Treatment Upcoming Encounters Date Type Specialty Care Team Description 11/28/2021 Hospital Encounter Radiology Harlan Parmar MD [facility] DR HEMATOLOGY/ONCOLOGY DEPT. [place], [place] [address] (Wo rk) 11/28/2021 Appointment Radiology Harlan Parmar M D [facility] DR HEMATOLOGY/ONCOLOGY DEPT. [place], [place] [address] (Wo rk) 12/01/2021 Office Visit Hematology and Oncology Harlan Parmar MD [facility] DR HEMATOLOGY/ONCOLOGY DEPT. [place], [place] [address] (Wo rk) documented as of this encounter Visit Diagnoses Not on filedocumented in this encounter Care Teams Datacap Developer Relationship Specialty Start Date End Date Yadira Nunez DO PCP - General Family Medicine 08/27/[address] [place] [address] documented as of this encounter
--- OUTSIDE RECORDS SUMMARY | 2021-11-25 00:28 | XMS_ITS | Encounter Summary ---
:1950 Author Organization [facility] [place] [address] Care Team Providers Name Role Phone Yadira Nunez DO Primary Care Provider Reason for Referral Diagnostic Test (Routine) - Closed Specialty Diagnoses / Procedures Referred By Contact Refer red To Contact Radiology Diagnoses Primary malignant neoplasm of right lower lobe of lung Harlan Parmar MD [facility] Rad Nuclear Med Procedures NM PET CT Skull Base to Mid-thigh [facility] HEMATOLOGY/[place] [address] [place] [address] Referral ID Status Reason Start Date Expiration Date Visits V isits Requested Authorized [id number] Closed Specialty 07/22/2020 01/21/2022 1 1 Service Requested Reason for Visit Diagnostic Test (Routine) - Closed Specialty Diagnoses / Procedures Referred By Contact Refer red To Contact Radiology Diagnoses Primary malignant neoplasm of right lower lobe of lung Harlan Parmar MD [facility] Rad Nuclear Med Procedures NM PET CT Skull Base to Mid-thigh [facility] HEMATOLOGY/[place] [address] [place] [address] Referral ID Status Reason Start Date Expiration Date Visits V isits Requested Authorized [id number] Closed Specialty 07/22/2020 01/21/2022 1 1 Service Requested Encounter Details Date Type Department Care Team Description 08/25/2020 Hospital Encounter Nuclear Medicine at Harlan Parmar, Primary malignant Peg Brock MD neoplasm of right [facility] lower lob e of lung [address] [facility] [place] HEMATOLOGY/ONCOL [address] O[facility] DEPT. [phone] [place] [address] Social History Tobacco Use Types Packs/Day Years [...] 11/28/2021 Hospital Encounter Radiology Harlan Parmar MD [facility] DR HEMATOLOGY/ONCOLOGY DEPT. [place], [place] [address] (Wo rk) 11/28/2021 Appointment Radiology Harlan Parmar M D [facility] HEMATOLOGY/ONCOLOGY DEPT. [place], [place] 0[address] (Wo rk) 12/01/2021 Office Visit Hematology and Oncology Harlan Parmar MD [facility] DR HEMATOLOGY/ONCOLOGY DEPT. [place], [place] [address] (Wo rk) documented as of this encounter Procedures Procedure Name Priority Date/Time Associated Diagnosis Comme nts NM PET CT SKULL Routine 08/25/2020 11:19 AM Primary malignant Results for this BASE TO MID-THIGH EDT neoplasm of right proce dure are in (LCSR) lower lobe of lung the resul ts section. documented in this encounter Results NM PET CT Skull Base to Mid-thigh (08/25/2020 11:19 AM EDT) Anatomical Region Laterality Modality Positron Emission To mography (PET) Specimen (Source) Anatomical Location Collection Method / Collectio n Time Received Time / Laterality Volume Impressions 08/25/2020 12:47 PM EDT 1. ??Multiple bilateral FDG avid mixed density pulmonary nodules, largely unchanged in size and stable to slightly increased in activity compared to prior PET/CT of 09/03/2019. 2. ??No new sites of suspected active ma lignancy or metastasis. 3. ??Small FDG avid right thyroid nodule shows increased activity, overall similar in appearance to the 10/24/2018 P ET/CT, representing a benign versus malignant thyroid neoplasm. I have personally reviewed the image(s) and the resident's interpretation and agree with the findings, Joelle Leiws MD at 08/25/2020 12:47 PM Thank you for letting us participate in the care of this patient. ??If you are a health care provider and have any questi ons regarding this report, please contact the number below. ??For patients who have questions please contact the health personal care aid that requested your imaging first. ? Narrative 08/25/2020 12:47 PM EDT EXAMINATION: NM PET CT SKULL BASE TO MID-THIGH ? CLINICAL HISTORY: Non-small cell lung ca ncer, post treatment, no evidence of disease TECHNIQUE: Following IV injection of 18- unaidj-5-bohvdrgprwgq (FDG) a standard uptake of approximately 60 minutes, a no ncontrast CT scan followed by a PET scan were acquired from the base of the skull to mid thighs. The noncontrast CT was used for anatomic localization and photo n attenuation correction of the PET scan. No oral contrast was administered. Blood glucose level: 141 (mg/dL) FDG dose: 9.6 mCi Reference liver mean SUV: 1.[address] udy, 1.8 prior exam 09/30/2019 COMPARISON: PET/CT 09/03/[address] 07/09/2020-Jose L venegas [facility] FINDINGS: HEAD/NECK: Small FDG avid right lobe thyroid nodule (axial image 53), demonstrates increased intensity compared to prior. D iffuse right neck muscular activity, most likely secondary to recent muscle u se or strain/tension. Normal activity in all other regions of the neck and visual ized lower head. CHEST: Multiple mixed density (subsolid and phylicia und glass) FDG avid pulmonary nodules throughout both lungs are not significan tly changed in size dating back to the 09/03/2019 CT and demonstrates similar to slightly increased metabolic activity. For example, unchanged customer loyalty representative 9 mm nodule in the right upper lobe (axial image 77); SUV max is 7 as compared to 5 .8 previously. No new pulmonary nodules identified. Interval small FDG avid left axillary ly mph nodes, similar to slightly greater than background mediastinal blood pool, and likely reactive nodes related to recent COVID vaccination. Interval small CT visualized left pleura l effusion. Coronary artery and aortic calcifications as before. ABDOMEN/PELVIS: Normal activity in all other soft tissue regions. Incidental CT visualized marked diffuse diffuse hepatic steatosis, liver measuring 4.5 Hounsfield units as compar ed to 29 HU previously. Vascular calcifications. SKELETON/EXTREMITIES: Normal marrow activity in the axial and visualized appendicular skeleton. Diffuse activity throughout several musc le groups bilaterally, most pronounced within the right thoracolumbar paraspina l and left gluteal muscles, consistent with recent muscle use or strain/tension . Unchanged non-FDG avid small sclerotic l esion within the left iliac bone. Procedure Note Joelle Lewis MD - 08/25/2020Formatt ing of this note might be different from the original. EXAMINATION: NM PET CT SKULL BASE TO MID -THIGH CLINICAL HISTORY: Non-small cell lung ca ncer, post treatment, no evidence of disease TECHNIQUE: Following IV injection of 18- hdoook-7-rvyiseqfaewo (FDG) a standard uptake of approximately 60 minutes, a no ncontrast CT scan followed by a PET scan were acquired from the base of the skull to mid thighs. The noncontrast CT was used for anatomic localization and photo n attenuation correction of the PET scan. No oral contrast was administered. Blood glucose level: 141 (mg/dL) FDG dose: 9.6 mCi Reference liver mean SUV: 1.[address] udy, 1.8 prior exam 09/30/2019 COMPARISON: PET/CT 09/03/[address] 07/09/2020-Jose L venegas [facility] FINDINGS: HEAD/NECK: Small FDG avid right lobe thyroid nodule (axial image 53), demonstrates increased intensity compared to prior. D iffuse right neck muscular activity, most likely secondary to recent muscle u se or strain/tension. Normal activity in all other regions of the neck and visual ized lower head. CHEST: Multiple mixed density (subsolid and phylicia und glass) FDG avid pulmonary nodules throughout both lungs are not significan tly changed in size dating back to the 09/03/2019 CT and demonstrates similar to slightly increased metabolic activity. For example, unchanged customer loyalty representative 9 mm nodule in the right upper lobe (axial image 77); SUV max is 7 as compared to 5 .8 previously. No new pulmonary nodules identified. Interval small FDG avid left axillary ly mph nodes, similar to slightly greater than background mediastinal blood pool, and likely reactive nodes related to recent COVID vaccination. Interval small CT visualized left pleura l effusion. Coronary artery and aortic calcifications as before. ABDOMEN/PELVIS: Normal activity in all other soft tissue regions. Incidental CT visualized marked diffuse diffuse hepatic steatosis, liver measuring 4.5 Hounsfield units as compar ed to 29 HU previously. Vascular calcifications. SKELETON/EXTREMITIES: Normal marrow activity in the axial and visualized appendicular skeleton. Diffuse activity throughout several musc le groups bilaterally, most pronounced within the right thoracolumbar paraspina l and left gluteal muscles, consistent with recent muscle use or strain/tension . Unchanged non-FDG avid small sclerotic l esion within the left iliac bone. IMPRESSION 1. Multiple bilateral FDG avid mixed den sity pulmonary nodules, largely unchanged in size and stable to slightly increased in activity compared to prior PET/CT of 09/03/2019. 2. No new sites of suspected active veronika gnancy or metastasis. 3. Small FDG avid right thyroid nodule s hows increased activity, overall similar in appearance to the 10/24/2018 P ET/CT, representing a benign versus malignant thyroid neoplasm. I have personally reviewed the image(s) and the resident's interpretation and agree with the findings, Joelle Lewis MD at 08/25/2020 12:47 PM Thank you for letting us participate in the care of this patient. If you are a health care provider and have any questi ons regarding this report, please contact the number below. For patients w ho have questions please contact the health personal care aid that requested your imaging first. Harlan Parmar MD IMG PET ORDERABLES documented in this encounter Visit Diagnoses Diagnosis Primary malignant neoplasm of right lowe r lobe of lung Malignant neoplasm of lower lobe, bronch us, or lung documented in this encounter Administered Medications Inactive Administered Medications - up to 3 most recent administrations Medication Order MAR Action Action Date Dose Rate Site fludeoxyglucose (F-18) FDG Given 08/25/2020 9:51 AM 9.6 mCi Right Arm injection 0-20 mCi EDT 0-20 mCi, Intravenous, ONCE PRN, 1 dose, Starting on Sun08/25/20 at 1004, Until Sun08/25/20 at 0951, Per Protocol, Radiology Contrast, Routine documented in this encounter Care Teams Clinching Machine Operator Relationship Specialty Start Date End Date Yadira Nunez DO PCP - General Family Medicine 08/27/19 [address] [place] [address] documented as of this encounter
--- OUTSIDE RECORDS SUMMARY | 2021-11-25 00:28 | XMS_ITS | Encounter Summary ---
:1950 Author Organization [facility] [place] [address] Care Team Providers Name Role Phone Yadira Nunez DO Primary Care Provider Reason for Visit Diagnostic Test (Routine) - Closed Specialty Diagnoses / Procedures Referred By Contact Refer red To Contact Radiology Diagnoses Primary malignant neoplasm of right lower lobe of lung Harlan Parmar MD [facility] Rad Nuclear Med Procedures NM PET CT Skull Base to Mid-thigh [facility] HEMATOLOGY/[place] [address] [place] [address] Referral ID Status Reason Start Date Expiration Date Visits V isits Requested Authorized [id number] Closed Specialty 07/22/2020 01/21/2022 1 1 Service Requested Encounter Details Date Type Department Care Team Description 08/25/2020 Hospital Encounter Nuclear Medicine at Harlan Parmar MD [facility] Des HEMATOLOGY/[place] [address] DEPT. [phone] [place], [place] [address] (Wo rk) Social History Tobacco Use Types [...] 11/28/2021 Hospital Encounter Radiology Harlan Parmar MD [facility] DR HEMATOLOGY/ONCOLOGY DEPT. [place], [place] [address] (Wo rk) 11/28/2021 Appointment Radiology Harlan Parmar M D [facility] HEMATOLOGY/ONCOLOGY DEPT. [place], [place] [address] (Wo rk) 12/01/2021 Office Visit Hematology and Oncology Harlan Parmar MD [facility] DR HEMATOLOGY/ONCOLOGY DEPT. [place], [place] [address] (Wo rk) documented as of this encounter Procedures Procedure Name Priority Date/Time Associated Diagnosis Comme nts NM PET CT SKULL Routine 08/25/2020 11:19 AM Primary malignant Results for this BASE TO MID-THIGH EDT neoplasm of right proce dure are in (LCSR) lower lobe of lung the resul ts section. POCT GLUCOSE Routine 08/25/2020 9:42 AM Results f or this EDT procedure are i n the results section. documented in this encounter Results POCT Glucose (08/25/2020 9:42 AM EDT) P athologist Signature POC Glucose 141 65 - 199 [place] mg/dL [facility] Comment: Supplemental ranges: <140 mg/dL before meals <180 mg/dL all other times of the day Specimen Anatomical Collection Method Collection Time Receive d Time (Source) Location / / Volume Laterality Blood 08/25/2020 9:42 AM 9:42 EDT AM EDT Harlan Parmar MD POINT OF CARE TEST ORDERABLE S Performing Organization Address City/State/[place] [address] documented in this encounter Visit Diagnoses Not on filedocumented in this encounter Care Teams Bank Runner Relationship Specialty Start Date End Date Krechetoff, Yadira B, PCP - General Family Medicine 08/27/[address] [place] [address] documented as of this encounter
--- OUTSIDE RECORDS SUMMARY | 2021-11-25 00:28 | XMS_ITS | Encounter Summary ---
:1950 Author Organization [facility] [place] [address] Care Team Providers Name Role Phone Yadira Nunez DO Primary Care Provider Encounter Details Date Type Department Care Team Description 11/05/2019 Telephone Pulmonology at [facility] [place] [address] Social History Tobacco Use Types Packs/Day [...] 11/28/2021 Hospital Encounter Radiology Harlan Parmar MD [facility] DR HEMATOLOGY/ONCOLOGY DEPT. [place], [place] [address] (Kai fermin) 11/28/2021 Appointment Radiology Harlan Parmar M D [facility] HEMATOLOGY/ONCOLOGY DEPT. [place], [place] [address] (Kai fermin) 12/01/2021 Office Visit Hematology and Oncology Harlan Parmar MD [facility] HEMATOLOGY/ONCOLOGY DEPT. [place], [place] [address] (Kai fermin) documented as of this encounter Visit Diagnoses Not on filedocumented in this encounter Care Teams Dish Carrier Relationship Specialty Start Date End Date Yadira Nunez DO PCP - General Family Medicine 08/27/[address] [place] [address] documented as of this encounter
--- OUTSIDE RECORDS SUMMARY | 2021-11-25 00:28 | XMS_ITS | Encounter Summary ---
:1950 Author Organization [facility] [place] [address] Care Team Providers Name Role Phone Yadira Nunez DO Primary Care Provider Encounter Details Date Type Department Care Team Description [facility] [address] [phone] Social History Tobacco Use Types Packs/Day Years [...] Hospital Encounter Radiology Harlan Parmar MD [facility] DR HEMATOLOGY/ONCOLOGY DEPT. [place], [place] [address] (Kai fermin) 11/28/2021 Appointment Radiology Harlan Parmar M D [facility] HEMATOLOGY/ONCOLOGY DEPT. [place], [place] [address] (Kai fermin) 12/01/2021 Office Visit Hematology and Oncology Harlan Parmar MD [facility] HEMATOLOGY/ONCOLOGY DEPT. [place], [place] [address] (Kai fermin) documented as of this encounter Visit Diagnoses Not on filedocumented in this encounter Care Teams Poultry Farmer Egg Relationship Specialty Start Date End Date Yadira Nunez DO PCP - General Family Medicine 08/27/[address] [place] [address] documented as of this encounter
--- OUTSIDE RECORDS SUMMARY | 2021-11-25 00:28 | XMS_ITS | Encounter Summary ---
:1950 Author Organization [facility] [place] [address] Care Team Providers Name Role Phone MayraYadira Suzette RO Primary Care Provider Encounter Details Date Type Department Care Team Description 11/05/2019 Orders Only Pulmonology at [facility] Mo Barraza SOB ([facility] breath) (Primary Dx) [place] [address] PULMONARY MEDICI [place], [place] [address] Social History Tobacco Use Types Packs/Day Years [...] Radiology Harlan Parmar MD [facility] HEMATOLOGY/ONCOLOGY DEPT. [place], [place] [address] (Kai fermin) 11/28/2021 Appointment Radiology Harlan Parmar M D [facility] HEMATOLOGY/ONCOLOGY DEPT. [place], [place] [address] (Kai fermin) 12/01/2021 Office Visit Hematology and Oncology Harlan Parmar MD [facility] HEMATOLOGY/ONCOLOGY DEPT. [place], [place] [address] (Wo rk) documented as of this encounter Visit Diagnoses Diagnosis SOB (shortness of breath) - Primary Shortness of breath documented in this encounter Care Teams Skein Yarn Dyer Relationship Specialty Start Date End Date Yadira Nunez DO PCP - General Family Medicine 08/27/19 [facility] [place] [address] documented as of this encounter
--- OUTSIDE RECORDS SUMMARY | 2021-11-25 00:28 | XMS_ITS | Encounter Summary ---
:1950 Author Organization [facility] [place] [address] Care Team Providers Name Role Phone Yadira Nunez DO Primary Care Provider Encounter Details Date Type Department Care Team Description 05/23/2021 Ancillary Procedure [facility] Suzette, [address] [id number] [phone] (Kai fermin) Social History Tobacco Use Types [...] [facility] DR HEMATOLOGY/ONCOLOGY DEPT. [place], [place] [address] (Kai fermin) 11/28/2021 Appointment Radiology Harlan Parmar M D [facility] HEMATOLOGY/ONCOLOGY DEPT. [place], [place] [address] (Kai fermin) 12/01/2021 Office Visit Hematology and Oncology Harlan Parmar MD [facility] DR HEMATOLOGY/ONCOLOGY DEPT. [place], [place] [address] (Wo rk) documented as of this encounter Procedures Procedure Name Priority Date/Time Associated Comments Diagnosis FILM LIBRARY STORAGE Routine 05/23/2021 12:41 PM Results for this ONLY ULTRASOUND EST procedure ar inna in STUDY the results section. documented in this encounter Results Film Library- Storage Only Ultrasound Study (05/23/2021 12:41 PM EST) Specimen (Source) Anatomical Location Collection Method / Collectio n Time Received Time / Laterality Volume Narrative RAD - 05/23/2021 12:41 PM EST This exam is auto-finalizing. It's purpo se is for storage only. Yadira Nunez DO John FILM LIBRARY ORDERABLES Performing Organization Address City/State/ZIP Code Phon e Number [place], [place] documented in this encounter Visit Diagnoses Not on filedocumented in this encounter Care Teams Jewel Setter Relationship Specialty Start Date End Date Yadira Nunez DO PCP - General Family Medicine 08/27/[address] [place] [address] documented as of this encounter
--- OUTSIDE RECORDS SUMMARY | 2021-11-25 00:29 | XMS_ITS | Encounter Summary ---
:1950 Author Organization [facility] [place] [address] Care Team Providers Name Role Phone Nuha Evanscarlos eduardo Mobley APRN Primary Care Provider Encounter Details Date Type Department Care Team Description 05/15/2017 Notes Only Hematology/Oncology at [facility] Luciano, [facility] OFFICE OF CARE [address] [place] [address] [phone] Social History Tobacco Use Types Packs/Day Years Used Date Current Every Day Smoker Cigarettes 2 52 Smokeless Tobacco: Never Used Comments: 3 cigarettes a day for last 25 years Alcohol Use Standard Drinks/Week Comments No 0 (1 standard drink = 0.6 oz pure alcoho l) Sex Assigned at Date Recorded Female 07/30/2020 4:21 AM EDT documented as of this encounter Progress Notes Stefany Luciano MSW - 05/15/2017 11:28 AM EST Request from Dr. Billings to follow up with pt re insurance related issues and medical bills she is receiving. Met with pt and to discuss. Pt indicated there has been confusion about which of herinsurances are her primary. She has had conversations with Tish and [facility] [place]. Encouraged pt to apply for financial assistance through [facility]. She just received the application to do this. Encouraged her to start the process for a review and get as much info in as possible. Pt indicated she has been granted 100% assistance through [facility] and encouraged her to send copy of her card and/or letter from [facility] stating this. Pt agreed to this plan. Gave pt the contact information to the [employer] program as another resource to help her sort out her insurance issues. Provided support. Asked pt to update me as she works through this process. documented in this encounter Plan of Treatment Upcoming Encounters Date Type Specialty Care Team Description 11/28/2021 Hospital Encounter Radiology Harlan Parmar MD [facility] DR HEMATOLOGY/ONCOLOGY DEPT. [place], [place] [address] (Wo rk) 11/28/2021 Appointment Radiology Harlan Parmar M D [facility] DR HEMATOLOGY/ONCOLOGY DEPT. [place], [place] [address] (Wo rk) 12/01/2021 Office Visit Hematology and Oncology Harlan Parmar MD [facility] DR HEMATOLOGY/ONCOLOGY DEPT. [place], [place] [address] (Wo rk) documented as of this encounter Visit Diagnoses Not on filedocumented in this encounter Care Teams Assistant Professor Of Archaeology Relationship Specialty Start Date End Date Fernanda Evans APRN PCP - General Family Medicine 08/14/16 08/26/[address] [place] [address] documented as of this encounter
--- OUTSIDE RECORDS SUMMARY | 2021-11-25 00:29 | XMS_ITS | Encounter Summary ---
:1950 Author Organization [facility] [place] [address] Care Team Providers Name Role Phone Nathan Fernandacarlos eduardo Mobley APRN Primary Care Provider Reason for Referral Diagnostic Test (Routine) - Closed Specialty Diagnoses / Procedures Referred By Contact Refer red To Contact Radiology Diagnoses Primary malignant neoplasm of right lower lobe of lung Lopez Billings MD [facility] Interventionl Rad Procedures IR Mediport Removal [address] [place] [phone] Fax: Referral ID Status Reason Start Date Expiration Date Visits V isits Requested Authorized [id number] Closed Specialty 09/24/2017 09/24/2018 1 1 Service Requested Reason for Visit Diagnostic Test (Routine) - Closed Specialty Diagnoses / Procedures Referred By Contact Refer red To Contact Radiology Diagnoses Primary malignant neoplasm of right lower lobe of lung Lopez Billings MD [facility] Interventionl Rad Procedures IR [facility] Removal [address] [place] [phone] Fax: Referral ID Status Reason Start Date Expiration Date Visits V isits Requested Authorized [id number] Closed Specialty 09/24/2017 09/24/2018 1 1 Service Requested Encounter Details Date Type Department Care Team Description 10/05/2017 Hospital Encounter Radiology at [facility] Lopez Billings, Pre-op testing; [facility] Primary malignant neoplasm of right lowe r lobe of lung Drive [address] [place] [address] [address] Ber[address], [place] [id number] [phone] Social History Tobacco Use Types Packs/Day Years [...] Sign Reading Time Taken Comments Blood Pressure 121/67 10/05/2017 2:45 PM EDT Pulse 66 10/05/2017 2:00 PM EDT Temperature 37.1 ??C (98.8 ??F) 10/05/2017 1:00 PM EDT Respiratory Rate 16 10/05/2017 2:00 PM EDT Oxygen Saturation 96% 10/05/2017 2:45 PM EDT Inhaled Oxygen Concentration - - Weight - - Height - - Body Mass Index - - documented in this encounter Discharge Instructions Discharge InstructionsSolis Solorzano RN - 10/05/2017 2:14 PM EDT [facility] Vascular and Interventional Radiology Discharge Instructions for your Chest Port Removal Activity: ??? Relax for the next 24 hours Diet: ??? Drink plenty of fluids. ??? Resume your regular diet Bandage: There is a sterile dressing consisting of small gauze with a clear dressing (Tegaderm or [id number]). This dressing should be left in place for 48 hours. If the clear dressing becomes loose you should place tape over the edges to secure it in place. No tub baths, swimming or whirlpools for 1 week. No showering for 48 hours. Note: If you have steri-strips beneath your dressing, simply allow them to fall off. Do not peel them off. There may be Adin-carreon (skin glue) also, allow this to flake off. Do not pick this off. Bathing: Do not take a shower until 48 hours after your port is removed; after this time you may shower with the dressing in place, then remove it and pat your skin dry. After 48 hours, we recommend that you cover the area with THE AQUA GUARD PROVIDED for 1 week while showering, facing away from the shower stream. You may use a bandaid to cover the site after the 48 hours are up if there is any drainage. No tub baths, whirlpools or swimming for one week following port removal. Pain: Apply ice bag to site (s) at 30 minute intervals (30 minutes on and 30 minutes off) for 24 hours?? . May use as needed for pain and/or bruising after 24 hours. When to call your healthcare provider: ??? If you notice bleeding from the incision on your chest, you should lie flat and apply firm pressure over the site for 10-15 minutes, keeping the site covered and call your doctor. If you are still bleeding after 10-15 minutes, reapply pressure, and have someone drive you to the nearest Emergency [facility], or call 911. ??? If you develop pain, redness, drainage or swelling at or around chest incision site. ??? If you develop a fever equal to or greater than 101 degrees Fahrenheit. When to call the Interventional Radiology Department: Please call with any questions or concerns. Ifit is during regular office hours, please call [phone]. If it is after regular office hours, oron weekends or holidays, please call [phone] and ask to speak to the Field Geologist on callfor Interventional Radiology. You have received medication during your procedure to help lessen anxiety and keep you comfortable.These medications affect judgement and reaction time. We recommend that you do not drive, operate equipment, sign any important documents, or smoke unattended for 24 hours following your procedure. Because of the sedation, be careful on stairs, as you may be unsteady on your feet. You may resume your regular diet as tolerated. IV site -- slight redness, or tenderness is normal, you can use a warm compress. If tenderness and redness increases or foul drainage occurs, please contact your M. D. Revised 04/16/15 documented in this encounter Medications at Time of Discharge Medication Sig Dispensed Refills Start Date End Date magnesium oxide (Mag-Ox) Take 400 mg by 0 017 400 mg (241.3 mg mouth daily. Take magnesium) Tablet one PO daily. loperamide (IMODIUM) 2 mg Take 1 capsule by 30 tablet 0 CapsuleIndications: mouth 4 times daily Primary malignant neoplasm as needed for of right lower lobe of Diarrhea. lung, Clostridium difficile colitis atenolol (TENORMIN) 50 mg Take 1 tablet by 90 tablet 3 05/03 TabletIndications: Primary mouth 2 times malignant neoplasm of daily. right lower lobe of lung triamcinolone (KENALOG) Apply topically 2 60 mL 3 12/01 0.1 % LotionIndications: times daily. Primary malignant neoplasm of right lower lobe of lung folic acid (FOLVITE) 1 mg Take 1 tablet by 90 tablet 3 11/01 TabletIndications: Primary mouth daily. malignant neoplasm of right lower lobe of lung prochlorperazine Take 1 tablet by 30 tablet 1 11/20/2016 (COMPAZINE) 10 mg mouth every 6 hours TabletIndications: Primary as needed for malignant neoplasm of Nausea. right lower lobe of lung buPROPion (WELLBUTRIN XL) take 3 tablet by 0 08/31 300 mg Tablet Extended mouth once daily Release 24 hr EPINEPHrine 0.3 mg/0.3 mL Reported on 0 7 Auto-Injector 10/09/2016 clonazePAM (KLONOPIN) 1 mg 0.5 mg. 0 6 Tablet predniSONE (DELTASONE) 5 Take 1 tablet by 90 tablet 3 06/1803/08/2018 mg TabletIndications: mouth daily. Primary malignant neoplasm of right lower lobe of lung, Clostridium difficile colitis diaZEPam (VALIUM) 5 mg Take 1 tablet by 2 tablet 0 017 03/08/2018 TabletIndications: Primary mouth as needed for malignant neoplasm of Anxiety. As needed right lower lobe of lung pre PET scan, take 1 tab prior to and repeat once if needed fluconazole (DIFLUCAN) 200 Take 1 tablet by 7 tablet 0 08/ 03/08/2018 mg Tablet mouth daily. documented as of this encounter Progress Notes Solis Solorzano RN - 10/05/2017 1:38 PM EDT 1320 To procedure room 2 via stretcher. Remains on stretcher safely positioned for procedure. All monitors, O2, safety strap in place. Med's per protocol. Jonny Alcantar DO - 10/05/2017 12:56 PM EDT PRE-SEDATION ASSESSMENT / FOCUSED H&P Addendum: The patient's history and physical exam have been reviewed and completed. There has been no intervalchange from that of the pre-operative history and physical exam done within the last 30 days. The risks (including hemorrhage, infection, damage to surrounding structures, and respiratory depression) and the benefits have been discussed with the patient, and she has consented to the procedure. I have discussed the patient's prior experience with sedation with them and reviewed the sedation plan for this case. I concur that fentanyl and midazolam are appropriate choices for sedation and will be provided per the ordered protocol. Physical Exam General: No distress. Alert. Responds appropriately to questions. Chest: Unlabored breathing on room air. Clear to auscultation bilaterally. Heart: Regular rate and rhythm. ASA Classification: ASA 3 - Patient with moderate systemic disease with functional limitations Mallampati Classification: III (soft palate, base of uvula visible) Jonny Alcantar DO 10/05/2017 12:56 PM Donato Sweet APRN - 10/04/2017 5:33 PM EDT INTERVENTIONAL RADIOLOGY FOCUSED H&P and PRE-PROCEDURE NOTE: PCP: Fernanda Evans APRN Referring Provider: Lopez Billings Planned Procedure: Chest port removal Procedure Indication: Treatment complete; port no longer needed Presenting Diagnosis/ Complaint: Gabriel Lucas is a 66 y.o. 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 Patient underwent port placement in 2016; treatment complete and port no longer needed. Past Medical/Surgical History: Patient Active Problem List Diagnosis Code ??? Primary malignant neoplasm of right lower lobe of lung C34.31 ??? 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 GERD (gastroesophageal reflux disease) ??? IBS (irritable bowel syndrome) ??? Lung cancer, primary, with metastasis from lung to other site ??? Multiple sclerosis ??? Primary malignant neoplasm of right lower lobe of lung 11/20/2016 ??? SVT (supraventricular tachycardia) Past Surgical History: Procedure Laterality Date ??? APPENDECTOMY 2007 ??? INGUINAL HERNIA REPAIR 1994 ??? PRO [facility] EBUS GUIDED SAMPL 1/2 NODE STATION/STRUX N/A 10/19/2016 BRONCH, W ENDOBRONCHIAL ULTRASOUND (EBUS) GUIDED SAMPLING, 1/2 NODES (WRVU 4.71) performed by Tunde Wang MD at [facility] MAIN OR ??? PRO COLONOSCOPY, BIOPSY N/A 12/21/2014 COLONOSCOPY FLEXIBLE, WITH BX performed by Joaquin Freeman MD at [facility] ENDOSCOPY ??? PRO UPPER GI ENDOSCOPY, DIAGNOSTIC N/A 10/19/2016 ENDOSCOPY, UPPER GI, DIAGNOSTIC, WITH OR WITHOUT SPECIMENS performed by Tunde Wang MD at [facility] MAIN OR ??? MARCO AND BSO 1989 ??? TONSILLECTOMY Medications: Current Outpatient Prescriptions on File Prior to Encounter Medication Sig Dispense Refill ??? atenolol (TENORMIN) 50 mg Tablet Take 1 tablet by mouth 2 times daily. (Patient taking differently: Take 50 mg by mouth 2 times daily. 1 tab am, 1.5 tabs pm Indications: Paroxysmal SupraventricularTachycardia) 90 tablet 3 ??? diaZEPam (VALIUM) 5 mg Tablet Take 1 tablet by mouth as needed for Anxiety. As needed pre PET scan, take 1 tab prior to and repeat once if needed 2 tablet 0 ??? folic acid (FOLVITE) 1 mg Tablet Take 1 tablet by mouth daily. 90 tablet 3 ??? buPROPion (WELLBUTRIN XL) 300 mg Tablet Extended Release 24 hr take 3 tablet by mouth once daily0 ??? clonazePAM (KLONOPIN) 1 mg Tablet ??? predniSONE (DELTASONE) 5 mg Tablet Take 1 tablet by mouth daily. (Patient taking differently: Take 5 mg by mouth daily. Indications: taking every other day) 90 tablet 3 ??? loperamide (IMODIUM) 2 mg Capsule Take 1 capsule by mouth 4 times daily as needed for Diarrhea. 30 tablet 0 ??? triamcinolone (KENALOG) 0.1 % Lotion Apply topically 2 times daily. (Patient not taking: Reported on 02/26/2017) 60 mL 3 ??? fluconazole (DIFLUCAN) 200 mg Tablet Take 1 tablet by mouth daily. (Patient not taking: Reportedon 06/18/2017) 7 tablet 0 ??? prochlorperazine (COMPAZINE) 10 mg Tablet Take 1 tablet by mouth every 6 hours as needed for Nausea. (Patient not taking: Reported on 06/18/2017) 30 tablet 1 ??? EPINEPHrine 0.3 mg/0.3 mL Auto-Injector Reported on 10/09/2016 0 No current facility-administered medications on file prior to encounter. Allergies: Bee sting [hymenoptera allergenic extract]; Contrast [iodine and iodide containing products]; Cortisone; Naproxen; Penicillins; and Sulfa (sulfonamide antibiotics) Social History and Habits: Social History Social History ??? Marital status: Spouse name: N/A ??? Number of children: N/A ??? Years of education: N/A Occupational History ??? Not on file. Social History Main Topics ??? Smoking status: Current Every Day Smoker Packs/day: 2.00 Years: 52.00 Types: Cigarettes ??? Smokeless tobacco: Never Used Comment: 3 cigarettes a day for last 25 years ??? Alcohol use No ??? Drug use: No ??? Sexual activity: Not on file Other Topics Concern ??? Not on file Social History Narrative Significant Family History: Family History Problem Relation Age of Onset ??? Colorectal Cancer Mother ??? Diabetes Father ??? Diabetes Sister ??? Lupus Brother Pertinent ROS: as per HPI Labs: PLT: 268 (09/17/17) Lab Results Component Value Date WBC 3.2 (L) 12/26/2016 HCT 30.8 (L) 12/26/2016 PLATELET 83 (L) 12/26/2016 INR 1.0 12/26/2016 Physical Exam: Pending (to be performed in angio the day of procedure) ASA: Pending (to be assessed in angio the day of procedure) Mallampati Class: Pending (to be assessed in angio the day of procedure) Assessment: 66 y.o. 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 Patient underwent port placement in 2017; treatment complete and port no longer needed. Plan: NO LABS NEEDED. Plan Planned procedure: port removal Labs to be performed day of procedure: PLT Sedation: moderate (conscious sedation) Prophylactic antibiotic : Ancef Contrast: No contrast Additional medications for procedure: Lidocaine Position: Supine Consent: Pending 10/04/2017 Solis Solorzano RN - 10/04/2017 2:23 PM EDT ANGIO NURSING DATABASE Name: GABRIEL LUCAS Date of : 1950 AGE 66 y.o. Address: [address] [place] [address] (home) Mobile: Telephone Information: Referring Provider: Lopez Billings REASON FOR VISIT: Mediport Removal Order Questions Answers Where will study be performed? [facility] [120] Reason for exam and clinical history: chemotherapy complete Exam/Procedure requested: removal of mediport Is the patient on anticoagulant / anitplatelet therapy ? No Date/time of procedure: 10/05/2017 @ 1330 Pertinent info from Pre-call (if any): Labs ordered: Platelet count ordered. Med's stopped: None No MD workup at time of nursing note. Allergies Allergen Reactions ??? Bee Sting [Hymenoptera Allergenic Extract] Anaphylaxis ??? Contrast [Iodine And Iodide Containing Products] Hives, Shortness Of Breath, Itching and Palpitations ??? Cortisone Other (See Comments) Pt. States she passed out ??? Naproxen ??? Penicillins ??? Sulfa (Sulfonamide Antibiotics) Pertinent PMH: Patient Active Problem List Diagnosis Code ??? Primary malignant neoplasm of right lower lobe of lung C34.31 ??? 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 APPENDECTOMY 2007 ??? INGUINAL HERNIA REPAIR 1994 ??? PRO [facility] EBUS GUIDED SAMPL 1/2 NODE STATION/STRUX N/A 10/19/2016 BRONCH, W ENDOBRONCHIAL ULTRASOUND (EBUS) GUIDED SAMPLING, 1/2 NODES (WRVU 4.71) performed by Tunde Wang MD at [facility] MAIN OR ??? PRO COLONOSCOPY, BIOPSY N/A 12/21/2014 COLONOSCOPY FLEXIBLE, WITH BX performed by Joaquin Freeman MD at [facility] ENDOSCOPY ??? PRO UPPER GI ENDOSCOPY, DIAGNOSTIC N/A 10/19/2016 ENDOSCOPY, UPPER GI, DIAGNOSTIC, WITH OR WITHOUT SPECIMENS performed by Tunde Wang MD at [facility] MAIN OR ??? MARCO AND BSO 1989 ??? TONSILLECTOMY Date/Procedure Med's given/comments 12/26/16 Mediport Placement Fentanyl 200 mcg Versed 4 mg Clindamycin 900 mg 10/05/17 [place] Removal Fentanyl 125 mcg IV, Versed 1.5 mg IV, Clindamycin 900 mg IV ? Laboratory Results: Lab Results Component Value Date INR 1.0 12/26/2016 Lab Results Component Value Date PLATELET 83 (L) 12/26/2016 Medications: Prior to Admission medications Medication Sig Start Date End Date Taking? Authorizing Provider predniSONE (DELTASONE) 5 mg Tablet Take 1 tablet by mouth daily. Patient taking differently: Take 5 mg by mouth daily. Indications: taking every other day 06/18/17 Lopez Billings MD loperamide (IMODIUM) 2 mg Capsule Take 1 capsule by mouth 4 times daily as needed for Diarrhea. 05/28/17 Lopez Billings MD atenolol (TENORMIN) 50 mg Tablet Take 1 tablet by mouth 2 times daily. Patient taking differently: Take 50 mg by mouth 2 times daily. 1 tab am, 1.5 tabs pm Indications: Paroxysmal Supraventricular Tachycardia 05/15/17 Lopez Billings MD diaZEPam (VALIUM) 5 mg Tablet Take 1 tablet by mouth as needed for Anxiety. As needed pre PET scan, take 1 tab prior to and repeat once if needed Patient not taking: Reported on 04/09/2017 02/26/17 Lopez Billings MD triamcinolone (KENALOG) 0.1 % Lotion Apply topically 2 times daily. Patient not taking: Reported on 02/26/2017 12/01/16 Padmini Vargas APRN fluconazole (DIFLUCAN) 200 mg Tablet Take 1 tablet by mouth daily. Patient not taking: Reported on 06/18/2017 11/27/16 Lopez Billings MD folic acid (FOLVITE) 1 mg Tablet Take 1 tablet by mouth daily. 11/20/16 Lopez Billings MD prochlorperazine (COMPAZINE) 10 mg Tablet Take 1 tablet by mouth every 6 hours as needed for Nausea. Patient not taking: Reported on 06/18/2017 11/20/16 Lopez Billings MD buPROPion (WELLBUTRIN XL) 300 mg Tablet Extended Release 24 hr take 3 tablet by mouth once daily 09/18/16 PROVIDER, HISTORICAL EPINEPHrine 0.3 mg/0.3 mL Auto-Injector Reported on 10/09/2016 08/30/16 PROVIDER, HISTORICAL clonazePAM (KLONOPIN) 1 mg Tablet 10/25/15 PROVIDER, HISTORICAL documented in this encounter Plan of Treatment Upcoming Encounters Date Type Specialty Care Team Description 11/28/2021 Hospital Encounter Radiology Harlan Parmar MD [facility] HEMATOLOGY/ONCOLOGY DEPT. [place], [place] [address] (Wo rk) 11/28/2021 Appointment Radiology Harlan Parmar M D [facility] HEMATOLOGY/ONCOLOGY DEPT. [place], [place] [address] (Wo rk) 12/01/2021 Office Visit Hematology and Oncology Harlan Parmar MD [facility] HEMATOLOGY/ONCOLOGY DEPT. [place], [place] [address] (Wo rk) documented as of this encounter Procedures Procedure Name Priority Date/Time Associated Diagnosis Comme nts IR MEDIPORT REMOVAL Routine 10/05/2017 2:11 PM Primary maligna nt Results for this EDT neoplasm of right procedure are in lower lobe of lung the resul ts section. documented in this encounter Results IR Mediport Removal (10/05/2017 2:11 PM EDT) Anatomical Region Laterality Modality X-Ray Angiography Specimen (Source) Anatomical Location Collection Method / Collectio n Time Received Time / Laterality Volume Narrative 10/08/2017 12:56 AM EDT IR PROCEDURE NOTE Procedure: Chest port removal Indication for Procedure: Lung cancer, s /p treatment, Mediport no longer needed Procedure events and findings: After obtaining informed consent patient was positioned supine on procedure table. ??right neck base and u pper chest port site prepped and draped, maximum sterile barrier techniqu e was used throughout. Due to the painful nature of the procedure, patient received split doses of intravenous fentanyl and versed from the IR nurse while pulse, pressure, and oxygen saturation were continuously monitored. Local anesthesia was provided with 1% li docaine plus 0.25% bupivacaine with epinephrine. A transverse skin inci paulo was made at the level of the port hub. The port was dissected free and removed. The port catheter was withdrawn without incident. ?? The pocket incision was closed with inte rrupted deep 2-0 resorbable suture, superficial 4-0 resorbable sutur e and tissue adhesive. Medications: Fentanyl 125 mcg IV, Versed 1.5 mg IV 1% Lidocaine <10ccs subcutaneous Antibiotic Prophylaxis: 900mg IV ? Est Blood Loss: <10 cc Complications: ??No immediate Impression: Removal of right chest port and port catheter. Associate Provider: Angelito Faria APRN. I was present during the intraservice time as documented by the I R nurse. Attending: Dr. Schulte Lopez Billings MD [facility] IR ORDERABLES documented in this encounter Visit Diagnoses Diagnosis Pre-op testing Preoperative examination, unspecified Primary malignant neoplasm of right lowe r lobe of lung Malignant neoplasm of lower lobe, bronch us, or lung documented in this encounter Administered Medications Inactive Administered Medications - up to 3 most recent administrations Medication Order MAR Action Action Date Dose Rate Site clindamycin (CLEOCIN) 900mg New Bag 10/05/2017 1:20 PM EDT 900 mg 100 mL/hr in dextrose 5% 50mL 900 mg, Intravenous, ONCE, 1 dose, On Sun10/05/17 at 1330, Administer over 30 Minutes, Give over 30-60 minutes. Do not exceed 30mg/minute. Redose every 6 hours if CrCl is greater than 20. Redose every 6 hours if CrCl is less than 20., Day of Surgery (Day of Procedure), Indication for (Active or Suspected): Prophylaxis fentaNYL 50 mcg/mL multi-dose injection Given 10/05/2017 1:40 PM EDT 50 mcg 25-50 mcg, Intravenous, EVERY 5 MIN PRN, Starting on Sun10/05/17 at 1301, Until Sun10/05/17 at 1447, Pain, per unit protocol, - Start dose 50 mcg (reduce dose to 25 mcg if history of sedation sensitivity). - Titration dose 25-50 mcg IV, (based on patient response) every 3 minutes PRN, to maintain procedural pain less than 2 per pain Scale. Maximum dose: 50 mcg/dose, 250 mcg/hour For use in Interventional Radiology (IR) only for procedural sedation with direct provider supervision and verbal order., Angio/IR (Intra-Procedure), Routine Given 10/05/2017 1:35 PM EDT 50 mcg Given 10/05/2017 1:30 PM EDT 25 mcg lidocaine (XYLOCAINE) 10 mg/mL (1 %) injection Given 0 10/05/2017 1:43 PM EDT 10 mg 10 mg 10 mg, Subcutaneous, ONCE, 1 dose, On Sun10/05/17 at 1330, For use in Interventional Radiology (IR) only for procedure with direct provider supervision and verbal order., Angio/IR (Intra-Procedure), Routine lidocaine-EPINEPHrine 1 %-1:100,000 injection Given 1:45 PM EDT 20 mLs 50 mL 50 mL, Intradermal, ONCE, 1 dose, On Sun10/05/17 at 1330, For use in Interventional Radiology (IR) only for Radiofrequency Ablation of Saphenous Vein procedure with direct provider supervision and verbal order., Angio/IR (Intra-Procedure), Routine lidocaine-EPINEPHrine 1 %-1:100,000 inje ction 1 dose, Starting on Sun10/05/17 at 1316, Until Sun10/05/17 at 1345, SOLIS SOLORZANO: cabinet override midazolam (PF) (VERSED) 1 mg/mL multi-dose Given 10/05/2017 1:40 PM EDT 0.5 mg injection 0.5-1 mg 0.5-1 mg, Intravenous, EVERY 3 MIN PRN, Starting on Sun10/05/17 at 1301, Until Sun10/05/17 at 1447, Sleep, - Start dose; 1 mg (Reduce dose to 0.5 mg if history of sedation sensitivity). - Titration dose: 0.5 mg - 1 mg (based on patient response) every 3 minutes PRN to obtain RASS score of -3. Maximum dose: 1 mg per dose, 5 mg/hour. For use in Interventional Radiology (IR) only for procedural sedation with direct provider supervision and verbal order., Angio/IR (Intra-Procedure), Routine Given 10/05/2017 1:35 PM EDT 0.5 mg Given 10/05/2017 1:30 PM EDT 0.5 mg documented in this encounter Care Teams Sand Worker Relationship Specialty Start Date End Date Fernanda Evans, [employer]ORDER PCP - General Family Medicine 08/14/16 08/26/[address] [place] [address] documented as of this encounter
--- OUTSIDE RECORDS SUMMARY | 2021-11-25 00:29 | XMS_ITS | Encounter Summary ---
:1950 [place] [address] Care Team Providers Name Role Phone NathanFernanda APRN Primary Care Provider Encounter Details Date Type Department Care Team Description 03/22/2018 Ancillary Procedure Radiology Library at Tomasa Conner, [facility] FITNESS DEPARTMENT HEAD [facility] [place] [address] RADIATION ONCOLOGY [phone] [place], [place] [address] (Wo zander) Social History Tobacco Use Types Packs/Day Years Used Date Current Every Day Smoker Cigarettes 0.25 52 Smokeless Tobacco: Never Used Comments: 3 [...] Encounter Radiology Harlan Parmar MD [facility] HEMATOLOGY/ONCOLOGY DEPT. [place], [place] [address] (Wo rk) 11/28/2021 Appointment Radiology Harlan Parmar M D [facility] HEMATOLOGY/ONCOLOGY DEPT. [place], [place] [address] (Wo rk) 12/01/2021 Office Visit Hematology and Oncology Harlan Parmar MD [facility] DR HEMATOLOGY/ONCOLOGY DEPT. [place], [place] [address] (Wo rk) documented as of this encounter Procedures Procedure Name Priority Date/Time Associated Comments Diagnosis FILM LIBRARY STORAGE Routine 03/22/2018 5:54 PM R esults for this ONLY ULTRASOUND EST procedure ar e in STUDY the results section. ULTRASOUND SCAN 03/22/2018 12:00 AM Resul ts for this (SCAN) EST procedure are i n the results section. documented in this encounter Results Film Library- Storage Only Ultrasound Study (03/22/2018 5:54 PM EST) Specimen (Source) Anatomical Location Collection Method / Collectio n Time Received Time / Laterality Volume Narrative [facility] - 03/22/2018 5:54 PM EST This exam is for storage only and is aut o-finalizing. Tomasa Conner APRN IMJohn FILM LIBRARY ORDERABLES Performing Organization Address City/State/ZIP Code Phon e Number [place], [place] SCAN DOC: ULTRASOUND (03/22/2018 12:00 AM EST) Narrative 03/22/2018 12:00 AM EST This result has an attachment that is no t available. Ordered by an unspecified provider. Scanning Provider MEDIA MGR SCAN EXT ORDR/RSLT documented in this encounter Visit Diagnoses Not on filedocumented in this encounter Care Teams Mixing Machine Feeder Relationship Specialty Start Date End Date Fernanda Evans APRN PCP - General Family Medicine 08/14/16 08/26/[address] [place] [address] documented as of this encounter
--- OUTSIDE RECORDS SUMMARY | 2021-11-25 00:29 | XMS_ITS | Encounter Summary ---
:1950 Author Organization [facility] [address] Care Team Providers Name Role Phone Nuha Evansn Itz ROBLES Primary Care Provider Reason for Visit Reason Comments IV Access port flush only Encounter Details Date Type Department Care Team Description 09/07/2017 Infusion Hematology Oncology at [facility] malignant neoplasm [facility] of right lower lobe of lung [address] (Primary Dx) [place], [place] [phone] Social History Tobacco Use Types [...] documented as of this encounter Progress Notes Aissatou Murguia RN - 09/07/2017 11:30 AM EDT INFUSION THERAPY ADMINISTRATION NOTES REASON FOR VISIT: MEDIPORT FLUSH ONLY IV ACCESS: Mediport GAUGE: 19G BLOOD RETURN: yes ANY S/S OF INFECTION/EXTRAVASATIONS: no signs of IV complications observed IV FLUSHED WITH: 20cc NS and 500 units Heparin IV DISCONTINUED: yes ASSESSMENT: Patient tolerated treatment well. PLAN: Return to clinic per routine. documented in this encounter Plan of Treatment Upcoming Encounters Date Type Specialty Care Team Description 11/28/2021 Hospital Encounter Radiology Harlan Parmar MD [facility] HEMATOLOGY/ONCOLOGY DEPT. [place], [place] [address] (Wo rk) 11/28/2021 Appointment Radiology Harlan Parmar M D [facility] HEMATOLOGY/ONCOLOGY DEPT. [place], [place] [address] (Wo rk) 12/01/2021 Office Visit Hematology and Oncology Harlan Parmar MD [facility] HEMATOLOGY/ONCOLOGY DEPT. [place], [place] [address] (Wo rk) documented as of this encounter Visit Diagnoses Diagnosis Primary malignant neoplasm of right lowe r lobe of lung - Primary Malignant neoplasm of lower lobe, bronch us, or lung documented in this encounter Care Teams Senior Planning Manager Relationship Specialty Start Date End Date Fernanda Evans APRN PCP - General Family Medicine 08/14/16 08/26/[address] [place] [address] [place] [address] documented as of this encounter
--- OUTSIDE RECORDS SUMMARY | 2021-11-25 00:29 | XMS_ITS | Encounter Summary ---
:1950 Author Organization [facility] [place] [address] Care Team Providers Name Role Phone Fernanda Evans APRN Primary Care Provider Encounter Details Date Type Department Care Team Description 04/30/2017 Office Visit Hematology/Oncology Padmini Vargas, Prim sanjeev malignant at [facility] MEDICAL TERMINOLOGIST neoplasm of right [address] [place] [address] lower lobe of lung [place], [place] [address] [place] [address] [phone] (Wo rk) Social History Tobacco Use Types [...] Sign Reading Time Taken Comments Blood Pressure 127/57 04/30/2017 2:06 PM EST Pulse 90 04/30/2017 2:06 PM EST Temperature 36.6 ??C (97.9 ??F) 04/30/2017 2:06 PM EST Respiratory Rate 18 04/30/2017 2:06 PM EST Oxygen Saturation 99% 04/30/2017 2:06 PM EST Inhaled Oxygen Concentration - - Weight 52 kg (114 lb 10.2 oz) 04/30/2017 2:06 PM EST Height - - Body Mass Index 19.15 04/09/2017 10:30 AM EST documented in this encounter Progress Notes Skalla, Padmini A, MEDICAL TERMINOLOGIST - 04/30/2017 2:00 PM EST Images from the original note were not included. 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 She had successfully tapered down to 5mgprednisone a week ago, however over the last 72hrs has had severe diarrhea, and she states it never really went away, just got a bit better with the initial steroids. When she called in this morning with the symptoms, we asked her to take 20mg at that time and get labs before she came in. She took [id number] but did not get labs. Of note, she has a past history of MS, IBS, and GERD. She also notes R flank pain and foul smelling urine as well as nausea. No vomiting. Past Medical History: Diagnosis Date ??? GERD (gastroesophageal reflux disease) ??? IBS (irritable bowel syndrome) ??? Lung cancer, primary, with metastasis from lung to other site ??? Multiple sclerosis ??? SVT (supraventricular tachycardia) Past Surgical History: Procedure Laterality Date ??? APPENDECTOMY 2007 ??? INGUINAL HERNIA REPAIR 1994 ??? PRO [facility] EBUS GUIDED SAMPL 1/2 NODE STATION/STRUX N/A 10/19/2016 BRONCH, W ENDOBRONCHIAL ULTRASOUND (EBUS) GUIDED SAMPLING, 1/2 NODES (WRVU 4.71) performed by Tunde Wang MD at [facility] MAIN OR ??? PRO COLONOSCOPY, BIOPSY N/A 12/21/2014 COLONOSCOPY FLEXIBLE, WITH BX performed by Joaquin Freeman MD at [facility] ENDOSCOPY ??? PRO UPPER GI ENDOSCOPY, DIAGNOSTIC N/A 10/19/2016 ENDOSCOPY, UPPER GI, DIAGNOSTIC, WITH OR WITHOUT SPECIMENS performed by Tunde Wang MD at [facility] MAIN OR ??? MARCO AND BSO 1989 ??? TONSILLECTOMY Allergies Allergen Reactions ??? Bee Sting [Hymenoptera Allergenic Extract] Anaphylaxis ??? Contrast [Iodine And Iodide Containing Products] Hives, Shortness Of Breath, Itching and Palpitations ??? Cortisone Other (See Comments) Pt. States she passed out ??? Naproxen ??? Penicillins ??? Sulfa (Sulfonamide Antibiotics) Current Outpatient Prescriptions on File Prior to Visit Medication Sig Dispense Refill ??? predniSONE (DELTASONE) 5 mg Tablet Take 1 tablet by mouth See Admin Instructions. 15 mg x 1 week,10 mg x 1 week, 5 mg daily until seen 50 tablet 0 ??? diaZEPam (VALIUM) 5 mg Tablet Take 1 tablet by mouth as needed for Anxiety. As needed pre PET scan, take 1 tab prior to and repeat once if needed (Patient not taking: Reported on 04/09/2017) 2 tablet0 ??? triamcinolone (KENALOG) 0.1 % Lotion Apply topically 2 times daily. (Patient not taking: Reported on 02/26/2017) 60 mL 3 ??? fluconazole (DIFLUCAN) 200 mg Tablet Take 1 tablet by mouth daily. (Patient not taking: Reportedon 03/06/2017) 7 tablet 0 ??? folic acid (FOLVITE) 1 mg Tablet Take 1 tablet by mouth daily. 90 tablet 3 ??? prochlorperazine (COMPAZINE) 10 mg Tablet Take 1 tablet by mouth every 6 hours as needed for Nausea. (Patient not taking: Reported on 03/06/2017) 30 tablet 1 ??? acetaminophen (TYLENOL) 500 mg Tablet Take 2 tablets by mouth every 6 hours as needed for Pain. ??? buPROPion (WELLBUTRIN XL) 300 mg Tablet Extended Release 24 hr take 1 tablet by mouth once daily0 ??? EPINEPHrine 0.3 mg/0.3 mL Auto-Injector Reported on 10/09/2016 0 ??? clonazePAM (KLONOPIN) 1 mg Tablet ??? atenolol (TENORMIN) 50 mg Tablet No current facility-administered medications on file prior to visit. Family History Problem Relation Age of Onset ??? Colorectal Cancer Mother ??? Diabetes Father ??? Diabetes Sister ??? Lupus Brother Social History Social History ??? Marital status: [...] ??? Not on file Social History Narrative Review of Systems Constitutional: Negative for fever, chills, activity change, fatigue and unexpected weight change. HENT: Negative for sore throat, mouth sores and trouble swallowing. Eyes: Negative. Respiratory: Negative for cough, shortness of breath and wheezing. Cardiovascular: Negative for chest pain, palpitations and leg swelling. Gastrointestinal: see above Genitourinary: Negative for dysuria and difficulty urinating. But does note normal appearing urine with foul smell. Musculoskeletal: Negative. Skin: Negative. Neurological: Still reports dizziness and having to hold on to something for balance frequently Hematological: Negative for adenopathy. BP 127/57 (Patient Position: Sitting) Pulse 90 Temp 36.6 ??C (97.9 ??F) (Oral) Resp 18 Wt 52kg (114 lb 10.2 oz) SpO2 99% BMI 19.15 kg/m2 Wt Readings from Last 3 Encounters: 04/30/17 52 kg (114 lb 10.2 oz) 04/09/17 51.3 kg (113 lb) 03/27/17 50.5 kg (111 lb 4 oz) Physical Exam Constitutional: She is oriented to person, place, and time. She appears well-developed. HENT: Mouth/Throat: Oropharynx is clear and moist. Eyes: Conjunctivae and EOM are normal. Pupils are equal, round, and reactive to light. Neck: Normal range of motion. Cardiovascular: Normal rate and regular rhythm. Pulmonary/Chest: Effort normal and breath sounds normal. Abdominal: Soft. She exhibits no distension and no mass. There is no tenderness. There is no guarding. Genitourinary: Genitourinary Comments: R flank tender to palpation Musculoskeletal: Normal range of motion. She exhibits no edema. Neurological: She is alert and oriented to person, place, and time. Skin: Skin is warm and dry. Psychiatric: She has a normal mood and affect. Her behavior is normal. ?Non-Driver/Guide Final DIAGNOSIS Positive for Malignancy Electronically signed by: ??Alina LUNA, Herbert Johnson Verified: ??10/21/2016 ?Cytopathologist DISCUSSION Lymph node: level 7 (EBUS-guided FNA) - Compatible with adenocarcinoma. The tumor cells resemble those present in the concurrent level 10L lymph node FNA. ? Molecular Genetics RESULTS Please refer to Cytopathology Report for final pathology diagnosis. INDICATION FOR STUDY: ?? Lymph node, level 7 (EBUS-guided FNA) - Compatible with ??adenocarcinoma SPECIMEN ANALYZED: ?? A1 Analysis: ??Examination of DNA extracted from formalin-fixed paraffin-embedded tumor ??tissue for somatic mutation analysis. Results: ??The following gene variants were identified in the submitted tissue: CLINICALLY ACTIONABLE VARIANTS: BRAF: ??NEGATIVE EGFR: ??NEGATIVE KRAS: ??MUTATION c.34G> T p.G12C Exon 2 PIK3CA: ??NEGATIVE OTHER DETECTED VARIANTS: N/A Interpretation: ?? After review of the pathology report and slides, the specimen ??( A1) was selected for mutation analysis from a panel of 50 genes. ??The results of this test indicate that tumor cells comprising 20.0% of the tissue ??specimen analyzed were normal for hotspots in the BRAF, EGFR, PIK3CA, and 46 ??other genes. ??A mutation was detected in the KRAS gene (G12C) which results in ??an amino acid substitution at position 12 from glycine (G) to a cysteine (C). The ??G12C mutation suggests that this patient may not benefit from anti-EGFR therapy. ??Recent studies have shown that patients with G12C or G12V mutations have increased ??sensitivity to MEK inhibitors compared with tumors carrying other KRAS mutations ??(Luis et al, 2015). ??Therapeutic options related to the presence or absence ??of mutations should be carefully assessed. Availability of other therapeutic ??indications and clinical trials may be possible. EXAMINATION: PET CT STANDARD PLUS EXTREMITIES AND HEAD 02/27/17 ?? CLINICAL HISTORY: Follow Up Scan post 3 months combination Chemotherapy and Immunotherapy ?? TECHNIQUE: Procedure: Following IV injection of 15-boqjqq-3-deoxyglucose (FDG) a standard uptake of approximately 60 minutes, a noncontrast CT scan followed by a PET scan were acquired from the top of head to bottom of feet. The noncontrast CT was used for anatomic localization and photon attenuation correction of the PET scan. No enteric contrast was administered. ?? Blood glucose level: 127 (mg/dL) ?? FDG dose: 7.4 mCi ?? Reference mean liver SUV: Today 2.3, previously 2.1 ?? COMPARISON: 09/26/2016 PET/CT, 08/07/[address] ?? FINDINGS: ?? HEAD/NECK: A small focus of increased activity is again seen in the posterior inferior aspect of the right thyroid lobe (axial image 92). Normal activity in all remaining soft tissue regions of the neck and throughout the head. ?? CHEST: Multiple pulmonary nodules are again seen throughout both lungs. The majority of the previously demonstrated hypermetabolic nodules have completely resolved metabolic activity and have decreased in size compared to the prior exam. There are two residual nodular opacities demonstrating minimally increased metabolic activity, that measuring approximately 13 x 9 mm in the right lower lobe (axial CT image 118) with an SUV max of 1.7 which previously measured approximately 23 x 16 mm with an SUV max of 11.1 and the small more groundglass appearing opacity in the right upper lobe (axial CT image 116) which is similar in size with an SUV max now 1.6 as compared to 2.[address] visualized scattered small nodular opacities, including groundglass opacities, are unchanged. No new pulmonary nodules are seen. ?? The previously seen subcarinal hypermetabolic lymphadenopathy has resolved both metabolically and anatomically. Previously noted right hilar shmuel mass and left upper lobe/apical pleural hypermetabolic activity have resolved. There has been interval placement of an anterior chest port with catheter tip terminating in the lower superior vena cava. Coronary artery and aortic calcifications are reidentified. ?? ABDOMEN/PELVIS: Normal activity in all soft tissue regions. This is cleared, the previously seen enlarged gastrohepatic lymph node has resolved both anatomically and metabolically. Focal hypermetabolic activity previously seen at the gastroesophageal junction has also resolved. Stable CT visualized hypoattenuating 6 mm left hepatic lobe lesion is too small to be characterize, unchanged. ?? SKELETON/EXTREMITIES: Normal activity in all regions of the axial and appendicular skeleton. The previously seen hypermetabolic left ischial and left 10th rib lytic foci have resolved metabolically and increased sclerosis is seen at the left ischial site. ? Normal activity in all soft tissue regions of the upper and lower extremities, aside for scattered areas of increased muscular activity in the bilateral, left greater than right gluteal, bilateral forearm, left calf, and plantar right foot musculature, likely related to muscular strain. There has been complete metabolic resolution of the previously seen small FDG avid intramuscular/perimuscular lesion in the left proximal anterior thigh. ?? IMPRESSION 1. Majority of the bilateral pulmonary nodules have resolved metabolically and are anatomically smaller. Two residual nodules in the right lung show mildly increased FDG avidity, similar to mediastinal blood pool activity and less than liver background, favored to represent posttreatment changes. Attention is recommended on follow-up imaging to exclude the possibility of residual active malignancy. 2. No active shmuel, intramuscular, or skeletal metastases. 3. Similar appearance of small hypermetabolic focus in the inferior pole of the right thyroid gland suspicious for benign versus malignant thyroid neoplasm. Pre Treatment Post Treatmetn Recent ultrasound of the thyroid on October 16 showed a 9 mm right lower thyroid lobe abnormality with recommendations made to consider a biopsy ? Surgical Pathology DIAGNOSIS GE junction, biopsy: Acute nonspecific gastritis. No evidence of malignancy. No H. pylori-like microorganism is seen. GMS stain is negative for fungal organisms. Electronically signed by: ??Hermelindo Whitley MD Verified: ??10/24/2016 ?Pathologist ONCBCN ONCOLOGY (AMB) 11/22/2016 Day, Cycle Day 1, Cycle 1 CARBOplatin (PARAPLATIN) IV 363 mg cyanocobalamin (vitamin B-12) SubQ 1,000 mcg pembrolizumab (KEYTRUDA) IV 200 mg PEMEtrexed (ALIMTA) IV 500 mg/m2/dose = 760 mg ONCBCN ONCOLOGY (AMB) 12/12/2016 Day, Cycle Day 1, Cycle 2 CARBOplatin (PARAPLATIN) IV 376 mg cyanocobalamin (vitamin B-12) SubQ pembrolizumab (KEYTRUDA) IV 200 mg PEMEtrexed (ALIMTA) IV 500 mg/m2/dose = 760 mg ONCBCN ONCOLOGY (AMB) 01/02/2017 Day, Cycle Day 1, Cycle 3 CARBOplatin (PARAPLATIN) IV 384 mg cyanocobalamin (vitamin B-12) SubQ pembrolizumab (KEYTRUDA) IV 200 mg PEMEtrexed (ALIMTA) IV 500 mg/m2/dose = 760 mg ONCBCN ONCOLOGY (AMB) 01/23/2017 Day, Cycle Day 1, Cycle 4 CARBOplatin (PARAPLATIN) IV 342 mg cyanocobalamin (vitamin B-12) SubQ 1,000 mcg pembrolizumab (KEYTRUDA) IV 200 mg PEMEtrexed (ALIMTA) IV 500 mg/m2/dose = 760 mg Labs: 04/30/17 CBC: WBC 7.01 hemoglobin 11.8 platelets 265 CMP: Sodium 141 potassium 4.2 BUN 13 creatinine 1.34 glucose 147 calcium 9.2 total bili 0.3 AST 17 ALT 29 alk phos 87 total protein 6.7 albumin 3.2 ASSESSMENT/PLAN: Divya was doing well with her checkpoint associated colitis however now has recurrent diarrhea on 5mg of prednisone. I asked her to take 20mg this morning and after discussing with Dr. Billings will add 4mg IV dex to that to make the equivalent of about 40mg pred today. I will also give her aloxi and famotidine in the clinic for nausea along with 1L NS. Her labs came back much better than I suspectedgiven her description of events. I encouraged her to continue fluids at home and to call if her flank pain worsens - her Cr is up slightly but her BUN is normal and her WBC is normal. Her dizziness maybe due to dehydration or masking of brain mets on prednisone. I asked her to push fluids and will leave investigation of potential brain mets up to Dr. Billings's discretion. She will call if her diarrhea is not much improved by tomorrow. Padmini Vargas, MSN, COMPUTER PATTERNMAKER, AOCN Hematology/Oncology Nurse Practitioner [place], [place] [phone] documented in this encounter Plan of Treatment Upcoming Encounters Date Type Specialty Care Team Description 11/28/2021 Hospital Encounter Radiology Harlan Parmar MD [facility] DR HEMATOLOGY/ONCOLOGY DEPT. [place], [place] [address] (Wo rk) 11/28/2021 Appointment Radiology Harlan Parmar M D [facility] HEMATOLOGY/ONCOLOGY DEPT. [place], [place] [address] (Wo rk) 12/01/2021 Office Visit Hematology and Oncology Harlan Parmar MD [facility] DR HEMATOLOGY/ONCOLOGY DEPT. [place], [place] [address] (Wo rk) documented as of this encounter Visit Diagnoses Diagnosis Primary malignant neoplasm of right lowe r lobe of lung Malignant neoplasm of lower lobe, bronch us, or lung documented in this encounter Care Teams Forest Technology Professor Relationship Specialty Start Date End Date Fernanda Evans APRN PCP - General Family Medicine 08/14/16 08/26/[address] [place] [address] documented as of this encounter
--- OUTSIDE RECORDS SUMMARY | 2021-11-25 00:29 | XMS_ITS | Encounter Summary ---
:1950 Author Organization [facility] [place] [address] Care Team Providers Name Role Phone Fernanda Evans APRN Primary Care Provider Reason for Visit Reason Onset Date Comments Follow-up 05/01/2017 Diarrhea Encounter Details Date Type Department Care Team Description 05/01/2017 Telephone Hematology Oncology at [facility] Follow-up (Diarrhea) [address] [phone] Social History Tobacco Use Types Packs/Day Years Used Date Current Every Day Smoker Cigarettes 2 52 Smokeless Tobacco: Never Used Comments: 3 cigarettes a day for last 25 years Alcohol Use Standard Drinks/Week Comments No 0 (1 standard drink = 0.6 oz pure alcoho l) Sex Assigned at Date Recorded Female 07/30/2020 4:21 AM EDT documented as of this encounter Miscellaneous Notes Telephone Encounter - Erika Anne RN - 05/01/2017 11:58 AM EST Called patient to follow up on diarrhea from yesterday. Patient states that after she started the pills (prednisone) the diarrhea went away. She has had no loose stools since yesterday. Divya offers that she is still weak but able to eat and drink. She does state that she needs to drink more. Divya is aware to call us with any questions or concerns. documented in this encounter Plan of Treatment Upcoming Encounters Date Type Specialty Care Team Description 11/28/2021 Hospital Encounter Radiology Harlan Parmar MD [facility] DR HEMATOLOGY/ONCOLOGY DEPT. [place], [place] [address] (Wo rk) 11/28/2021 Appointment Radiology Harlan Parmar M D [facility] DR HEMATOLOGY/ONCOLOGY DEPT. [place], [place] [address] (Wo rk) 12/01/2021 Office Visit Hematology and Oncology Harlan Parmar MD [facility] DR HEMATOLOGY/ONCOLOGY DEPT. [place], [place] [address] (Wo rk) documented as of this encounter Visit Diagnoses Not on filedocumented in this encounter Care Teams Youth Specialist Relationship Specialty Start Date End Date Fernanda Evans APRN PCP - General Family Medicine 08/14/16 08/26/[address] [place] [address] documented as of this encounter
--- OUTSIDE RECORDS SUMMARY | 2021-11-25 00:29 | XMS_ITS | Encounter Summary ---
:1950 Author Organization [facility] [place] [address] Care Team Providers Name Role Phone Nathan Fernanda Mobley APRN Primary Care Provider Reason for Visit Reason Onset Date Comments Other 08/22/2019 prescription was faith led in Encounter Details Date Type Department Care Team Description 08/22/2019 Telephone Hematology/Oncology at [facility] (prescription was [facility] called in ) [address] [place] [phone] Social History Tobacco Use Types Packs/Day [...] [facility] DR HEMATOLOGY/ONCOLOGY DEPT. [place], [place] [address] (Wo rk) 11/28/2021 Appointment Radiology Harlan Parmar M D [facility] HEMATOLOGY/ONCOLOGY DEPT. [place], [place] [address] (Wo rk) 12/01/2021 Office Visit Hematology and Oncology Harlan Parmar MD [facility] DR HEMATOLOGY/ONCOLOGY DEPT. [place], [place] [address] (Wo rk) documented as of this encounter Visit Diagnoses Not on filedocumented in this encounter Care Teams Finishing Range Operator Relationship Specialty Start Date End Date Fernanda Evans APRN PCP - General Family Medicine 08/14/16 08/26/[address] [place] [address] documented as of this encounter
--- OUTSIDE RECORDS SUMMARY | 2021-11-25 00:29 | XMS_ITS | Encounter Summary ---
:1950 Author Organization [facility] [place] [address] Care Team Providers Name Role Phone Nuha [place]carlos eduardo Mobley APRN Primary Care Provider Reason for Visit Reason Comments IV Access Mediport flush only Encounter Details Date Type Department Care Team Description 06/18/2017 Infusion Hematology Oncology at [facility] malignant neoplasm [facility] of right lower lobe of lung [address] [place] [address] [phone] Social History Tobacco Use Types [...] documented as of this encounter Progress Notes Lea Vasquez RN - 06/18/2017 11:00 AM EDT INFUSION THERAPY ADMINISTRATION NOTES DIAGNOSIS: Lung cancer REASON FOR VISIT: MEDIPORT FLUSH ONLY IV [...] 11/28/2021 Hospital Encounter Radiology Harlan Parmar MD [facility] HEMATOLOGY/ONCOLOGY DEPT. [place], [place] [address] (Wo rk) 11/28/2021 Appointment Radiology Harlan Parmar M D [facility] DR HEMATOLOGY/ONCOLOGY DEPT. [place], [place] [address] (Wo rk) 12/01/2021 Office Visit Hematology and Oncology Harlan Parmar MD [facility] HEMATOLOGY/ONCOLOGY DEPT. [place], [place] [address] (Wo rk) documented as of this encounter Visit Diagnoses Diagnosis Primary malignant neoplasm of right lowe r lobe of lung Malignant neoplasm of lower lobe, bronch us, or lung documented in this encounter Care Teams Manager Contract Relationship Specialty Start Date End Date Fernanda [place] APRN PCP - General Family Medicine 08/14/16 08/26/[address] [place] [address] [place] [address] documented as of this encounter
--- OUTSIDE RECORDS SUMMARY | 2021-11-25 00:29 | XMS_ITS | Encounter Summary ---
:1950 Author Organization [facility] [place] [address] Care Team Providers Name Role Phone MayraYadira Suzette RO Primary Care Provider Encounter Details Date Type Department Care Team Description 09/04/2019 Orders Only Hematology/Oncology Nellie Parmar MD Primary malignant neoplasm of right lowe r lobe of lung; at [facility] due to drugs [address] [place] [address] [place], [place] HEMATOLOGY/ONCOLO [address] [place] DEPT. [phone] [place], [place] [address] Social History Tobacco Use Types [...] Radiology Harlan Parmar MD [facility] HEMATOLOGY/ONCOLOGY DEPT. [place], [place] [address] (Wo rk) 11/28/2021 Appointment Radiology Harlan Parmar M D [facility] HEMATOLOGY/ONCOLOGY DEPT. [place], [place] [address] (Wo rk) 12/01/2021 Office Visit Hematology and Oncology Harlan Parmar MD [facility] DR HEMATOLOGY/ONCOLOGY DEPT. 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
--- OUTSIDE RECORDS SUMMARY | 2021-11-25 00:29 | XMS_ITS | Encounter Summary ---
:1950 Author Organization [facility] [address] Care Team Providers Name Role Phone Fernanda [place] APRN Primary Care Provider Reason for Visit Diagnostic Test (Routine) - Closed Specialty Diagnoses / Procedures Referred By Contact Refer red To Contact Radiology Diagnoses Primary malignant neoplasm of right lower lobe of lung Harlan Parmar MD [facility] Rad Nuclear Med Procedures PET CT Standard Skull Base to Mid-Thigh [facility] HEMATOLOGY/[place] [address] [place] [address] Referral ID Status Reason Start Date Expiration Date Visits V isits Requested Authorized [id number] Closed Specialty 08/31/2018 11/29/2018 1 1 Service Requested Encounter Details Date Type Department Care Team Description 10/24/2018 Hospital Encounter Nuclear Medicine at Harlan Parmar MD [facility] Des HEMATOLOGY/[place] [address] DEPT. [phone] [place], [place] [address] (Wo rk) Social History Tobacco [...] magnesium) daily. Take one PO Tablet daily. escitalopram oxalate Take 10 mg by mouth [...] 11/28/2021 Hospital Encounter Radiology Harlan Parmar MD [facility] DR HEMATOLOGY/ONCOLOGY DEPT. [place], [place] [address] (Kai fermin) 11/28/2021 Appointment Radiology Harlan Parmar M D [facility] HEMATOLOGY/ONCOLOGY DEPT. [place], [place] [address] (Kai fermin) 12/01/2021 Office Visit Hematology and Oncology Harlan Parmar MD [facility] DR HEMATOLOGY/ONCOLOGY DEPT. [place], [place] [address] (Kai fermin) documented as of this encounter Procedures Procedure Name Priority Date/Time Associated Diagnosis Comme nts NM PET CT SKULL Routine 10/24/2018 10:10 AM Primary malignant Results for this BASE TO MID-THIGH EDT neoplasm of right proce dure are in ([facility]) lower lobe of lung the resul ts section. POCT GLUCOSE Routine 10/24/2018 8:42 AM Results f or this EDT procedure are i n the results section. documented in this encounter Results POCT Glucose (10/24/2018 8:42 AM EDT) athologist Signature POC Glucose 104 65 - 199 [facility] mg/dL [facility] Comment: Supplemental ranges: <140 mg/dL before meals <180 mg/dL all other times of the day Specimen Anatomical Collection Method Collection Time Receive d Time (Source) Location / / Volume Laterality Blood specimen 10/24/2018 8:42 AM 019 8:42 (specimen) EDT AM EDT Harlan Parmar MD POINT OF CARE TEST ORDERABLE S Performing Organization Address City/State/Z[place] [address] documented in this encounter Visit Diagnoses Not on filedocumented in this encounter Administered Medications Inactive Administered Medications - up to 3 most recent administrations Medication Order MAR Action Action Date Dose Rate Site ALPRAZolam (XANAX) 0.5 mg tablet 1 dose, Starting on Edna 10/24/18 at 0914, Until Edna 7/08/18 at 0915, Ramon Peralta (address change clerk): cabinet override ALPRAZolam (XANAX) tablet 0.5 mg Given 10/24/2018 9:15 AM EDT 0.5 mg 0.5 mg, Oral, ONCE, 1 dose, On Edna 10/24/18 at 0845, Routine documented in this encounter Care Teams Blind Installer Relationship Specialty Start Date End Date Fernanda [place] APRN PCP - General Family Medicine 08/14/16 08/26/[address] [place] [address] documented as of this encounter
--- OUTSIDE RECORDS SUMMARY | 2021-11-25 00:29 | XMS_ITS | Encounter Summary ---
:1950 Author Organization [facility] Address [facility] [place] [address] Care Team Providers Name Role Phone Nuha [place]carlos eduardo Mobley APRN Primary Care Provider Encounter Details Date Type Department Care Team Description 02/06/2019 Office Visit Hematology/Oncology Nellie Parmar MD Primary malignant at [facility] neoplasm of right [address] lower lobe of lung [place], [place] HEMATOLOGY/ONCOLOG [address] [place] DEPT. [phone] [place] [id number] Social History Tobacco Use Types Packs/Day Years [...] Sign Reading Time Taken Comments Blood Pressure 127/54 02/06/2019 2:06 PM EST Pulse 65 02/06/2019 2:06 PM EST Temperature 36.7 ??C (98.1 ??F) 02/06/2019 2:06 PM EST Respiratory Rate 18 02/06/2019 2:06 PM EST Oxygen Saturation 97% 02/06/2019 2:06 PM EST Inhaled Oxygen Concentration - - Weight 55.2 kg (121 lb 9.6 oz) 02/06/2019 2:06 PM EST Height 164.8 cm (5' 4.88) 02/06/2019 2:06 PM EST copie d Body Mass Index 20.31 02/06/2019 2:06 PM EST documented in this encounter Progress Notes Harlan Parmar MD - 02/06/2019 2:00 PM EST Subjective: Patient ID: Divya Mobley Friend is a 68 y.o. female. 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 difficile and prednisone for autoimmune colitis. Observation since. I am seeing the patient in the [facility]. She has a history of metastatic lung cancer. She was treated with chemotherapy/immunotherapy about 2 years ago. She has been off therapy since 01/16. She has not been doing that great. Gets SOB with simple things, even talking on the phone. Inhaler helps. Anxiety and panic attacks are worse. Diarrhea is same. Also having nausea and vomiting. Some / any food can set it off. Crampy abd pains precede diarrhea. She has not noted any lumps or bumps. Does not have a worsening cough. No weight loss. No systemic symptoms. She tells me that her anxiety and panic attack symptoms keep her from leaving the house many days. She is worried that her primary care doctor wants to adjust her antianxiety medications. Patient Active Problem List Diagnosis Code ??? Primary malignant neoplasm of right lower lobe of lung C34.31 ??? 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 albuterol 90 mcg/actuation HFA Aerosol Inhaler, Inhale 2 puffs into the lungs every 4 hours as needed for Wheezing. Use with spacer, Disp: , Rfl: ??? escitalopram oxalate (LEXAPRO) 5 mg Tablet, Take 10 mg by mouth daily., Disp: , Rfl: 0 ??? loperamide (IMODIUM) 2 mg Capsule, Take 1 capsule by mouth 4 times daily as needed for Diarrhea.(Patient not taking: Reported on 10/31/2018), Disp: 30 tablet, Rfl: 0 ??? atenolol (TENORMIN) 50 mg Tablet, Take 1 tablet by mouth 2 times daily. (Patient taking differently: Take 50 mg by mouth 2 times daily. 1 tab am, 1.5 tabs pm Indications: Paroxysmal Supraventricular Tachycardia), Disp: 90 tablet, Rfl: 3 ??? triamcinolone (KENALOG) 0.1 % Lotion, Apply topically 2 times daily. (Patient not taking: Reported on 10/31/2018), Disp: 60 mL, Rfl: 3 ??? folic acid (FOLVITE) 1 mg Tablet, Take 1 tablet by mouth daily., Disp: 90 tablet, Rfl: 3 ??? prochlorperazine (COMPAZINE) 10 mg Tablet, Take 1 tablet by mouth every 6 hours as needed for Nausea. (Patient not taking: Reported on 10/31/2018), Disp: 30 tablet, Rfl: 1 ??? buPROPion (WELLBUTRIN XL) 300 mg Tablet Extended Release 24 hr, take 3 tablet by mouth once daily, Disp: , Rfl: 0 ??? EPINEPHrine 0.3 mg/0.3 mL Auto-Injector, Reported on 10/09/2016, Disp: , Rfl: 0 ??? clonazePAM (KLONOPIN) 1 mg Tablet, , Disp: , Rfl: Review of Systems Constitutional: Negative for fatigue, fever and unexpected weight change. HENT: Negative for nosebleeds. Respiratory: Negative for cough and shortness of breath. Cardiovascular: Negative for chest pain and palpitations. Gastrointestinal: Negative for abdominal pain and diarrhea. Musculoskeletal: Negative for back pain. [...] and time. Skin: No rash noted. BP 127/54 (Patient Position: Sitting) Pulse 65 Temp 36.7 ??C (98.1 ??F) (Oral) Resp 18 Ht 164.8 cm (5' 4.88) Comment: copied Wt 55.2 kg (121 lb 9.6 oz) SpO2 97% BMI 20.31 kg/m?? Labs White count 11.2, hemoglobin 12.4, platelets 323 Creatinine 1.16, alk phos 144 Chest x-ray from 02/05/2019 No gross interval change in appearance of the bilateral nodules Assessment and Plan: 68-year-old female with stage IV adenocarcinoma of the lung. She had 4 months of combined chemo/immunotherapy and had a nice response which has been durable. I see no convincing evidence of any active disease but she has so many symptoms related to her anxiety that it is difficult to tease apart. We will continue to follow her off of treatment. I will see her back in 3 months with a repeat imaging study. Given her original presentation had both lung and bone metastasis I think a PET scan is still the best way to monitor her disease activity. I would be happy to see her sooner if she has more problems. Otherwise we will see her back in 3 months with labs and the PET scan. documented in this encounter Plan of Treatment Upcoming Encounters Date Type Specialty Care Team Description 11/28/2021 Hospital Encounter Radiology Harlan Parmar MD [facility] HEMATOLOGY/ONCOLOGY DEPT. [place], [place] [address] (Kai fermin) 11/28/2021 Appointment Radiology Harlan Parmar M D [facility] HEMATOLOGY/ONCOLOGY DEPT. [place], [place] [address] (Wo zander) 12/01/2021 Office Visit Hematology and Oncology Harlan Parmar MD [facility] HEMATOLOGY/ONCOLOGY DEPT. [place], [place] [address] (Wo zander) documented as of this encounter Procedures Procedure Name Priority Date/Time Associated Comments Diagnosis DIAGNOSTIC RADIOLOGY 02/05/2019 12:00 AM Results for this SCAN EST procedure are i n the results section. documented in this encounter Results SCAN DOC: DIAGNOSTIC RADIOLOGY (02/05/2019 12:00 AM EST) Narrative 02/05/2019 12:00 AM EST This result has an attachment that is no t available. Ordered by an unspecified provider. Scanning Provider MEDIA MGR SCAN EXT ORDR/RSLT documented in this encounter Visit Diagnoses Diagnosis Primary malignant neoplasm of right lowe r lobe of lung Malignant neoplasm of lower lobe, bronch us, or lung documented in this encounter Care Teams Suction Plate Roller Hand Relationship Specialty Start Date End Date Fernanda [place], CITY SECRETARY PCP - General Family Medicine 08/14/16 08/26/[address] [place] [address] documented as of this encounter
--- OUTSIDE RECORDS SUMMARY | 2021-11-25 00:29 | XMS_ITS | Encounter Summary ---
:1950 Author Organization [place] [address] Care Team Providers Name Role Phone Nathan Fernanda Mobley APRN Primary Care Provider Reason for Visit Reason Comments Lung Cancer Encounter Details Date Type Department Care Team Description 06/18/2017 Office Visit Hematology/Oncology Lopez Billings, Ashlyn aldana malignant neoplasm of right lower lobe of lung; at [facility] Clostridium difficile colitis [address] [place] [address] [address] [place], [place] [address] [phone] (Wo rk) Social History Tobacco Use Types [...] Sign Reading Time Taken Comments Blood Pressure 121/47 06/18/2017 11:17 AM EDT Pulse 72 06/18/2017 11:17 AM EDT Temperature 37 ??C (98.6 ??F) 06/18/2017 11:17 AM EDT Respiratory Rate 20 06/18/2017 11:17 AM EDT Oxygen Saturation 98% 06/18/2017 11:17 AM EDT Inhaled Oxygen Concentration - - Weight 54.3 kg (119 lb 12.8 oz) 06/18/2017 11:17 AM EDT Height 164.8 cm (5' 4.88) 06/18/2017 11:17 AM copied EDT Body Mass Index 20.01 06/18/2017 11:17 AM EDT documented in this encounter Progress Notes Lopez Billings MD - 06/18/2017 11:00 AM EDT Images from the original note were not included. 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 She had resurgence of diarrhea when we got her tapered off her first round of steroids. Fortunately when we restarted the steroids the diarrhea again resolved and we have been slowly tapering her. She has some secondary effects from the steroids with a wills face, buffalo hump, and fat deposition in the supraclavicular areas. Additionally she has been having symptoms consistent with some proximal muscle weakness from the steroids. The whole clinical picture is a bit more complicated because of her underlying multiple sclerosis and over the winter some of her old problems with anxiety have come back and she is having trouble getting out of the house again. Previously she was helped with Ativan but ended up getting hooked on that and that was not a good long-term solution for her. The diarrhea has not recurred. Currently she is on 10 mg of prednisone and will be going to 5 mg daily. This is a low enough dose we can leave her on it without developing any secondary steroid effects so that will be the plan for now. We discussed restaging her. She brought up the small thyroid nodule that she had noted on PET and ultrasound confirmed that it was present. Unfortunately she cannot have a thyroid scan because of iodine allergy. All that being said we discussed that in I told her it makes the most sense to restage her and if her tumor in her lung is gone then we could pay some attention to the thyroid nodule perhapswith the surgery referral. He spent some time talking about how to get her out of the house again. So far she is not much interested in doing that with the current weather problems with been having. Hopefully that will improve. Past Medical History: Diagnosis Date ??? GERD (gastroesophageal reflux disease) ??? IBS (irritable bowel syndrome) ??? Lung cancer, primary, with metastasis from lung to other site ??? Multiple sclerosis ??? Primary malignant neoplasm of right lower lobe of lung 11/20/2016 ??? SVT (supraventricular tachycardia) Past Surgical History: Procedure Laterality Date ??? APPENDECTOMY 2007 ??? INGUINAL HERNIA REPAIR 1994 ??? PRO [facility] EBUS GUIDED SAMPL 1/2 NODE STATION/STRUX N/A 10/19/2016 BRONCH, W ENDOBRONCHIAL ULTRASOUND (EBUS) GUIDED SAMPLING, 1/2 NODES (WRVU 4.71) performed by Tunde Wang MD at [facility] MAIN OR ??? PRO COLONOSCOPY, BIOPSY N/A 12/21/2014 COLONOSCOPY FLEXIBLE, WITH BX performed by Joaquin Freeman MD at [facility] ENDOSCOPY ??? PRO UPPER GI ENDOSCOPY, DIAGNOSTIC N/A 10/19/2016 ENDOSCOPY, UPPER GI, DIAGNOSTIC, WITH OR WITHOUT SPECIMENS performed by Tunde Wang MD at [facility] MAIN OR ??? MARCO AND BSO [...] ??? predniSONE (DELTASONE) 5 mg Tablet Take 3 tablets by mouth daily. Active taper: 3 tabs daily x 1week then 2 tabs daily 100 tablet 0 ??? atenolol (TENORMIN) 50 mg Tablet Take 1 tablet by mouth 2 times daily. 90 tablet 3 ??? folic acid (FOLVITE) 1 mg Tablet Take 1 tablet by mouth daily. 90 tablet 3 ??? acetaminophen (TYLENOL) 500 mg Tablet Take 2 tablets by mouth every 6 hours as needed for Pain. ??? buPROPion (WELLBUTRIN XL) 300 mg Tablet Extended Release 24 hr take 1 tablet by mouth once daily0 ??? clonazePAM (KLONOPIN) 1 mg Tablet ??? loperamide (IMODIUM) 2 mg Capsule Take 1 capsule by mouth 4 times daily as needed for Diarrhea. (Patient not taking: Reported on 06/18/2017) 30 tablet 0 ??? diaZEPam (VALIUM) 5 mg [...] chest pain, palpitations and leg swelling. Gastrointestinal: Negative for nausea, vomiting, abdominal pain, diarrhea, constipation and abdominal distention. Genitourinary: Negative for dysuria and difficulty urinating. Musculoskeletal: Negative. Skin: Negative. Neurological: Negative. Hematological: Negative for adenopathy. Head: Normocephalic, without obvious abnormality, atraumatic Eyes: PERRL, conjunctiva/corneas clear, EOM's intact, fundi benign, both eyes Ears: Normal TM's and external ear canals, both ears Nose: Nares normal, septum midline, mucosa normal, no drainage or sinus tenderness Throat: No thrush Neck: Supple, symmetrical, trachea midline, no adenopathy, thyroid: not enlarged, symmetric, no tenderness/mass/nodules, no carotid bruit or JVD Back: Symmetric, no curvature, ROM normal, no CVA tenderness Lungs: Clear to auscultation bilaterally, respirations unlabored Chest Wall: No tenderness or deformity Heart: Regular rate and rhythm, S1, S2 normal, no murmur, rub or gallop Abdomen: Soft, non-tender, bowel sounds active all four quadrants, no masses, no organomegaly Extremities: Extremities normal, atraumatic, no cyanosis or edema Pulses: 2+ and symmetric Skin: she has a very faint erythematous rash on her neck and upper chest to about the level of the clavicles Lymph nodes: Cervical, supraclavicular, and axillary nodes normal Neurologic: Normal ?Non-Technical Supervisor Final DIAGNOSIS Positive for Malignancy Electronically signed [...] the pathology report and slides, the specimen ??([id number]) was selected for mutation analysis from [...] ?? TECHNIQUE: Procedure: Following IV injection of 09-yaagiz-3-deoxyglucose (FDG) a standard uptake of approximately 60 [...] by: ??Hermelindo Whitley MD Verified: ??10/24/2016 ?Pathologist [facility] ONCOLOGY (AMB) 11/22/2016 Day, Cycle Day 1, Cycle 1 CARBOplatin (PARAPLATIN) IV 363 mg cyanocobalamin (vitamin B-12) SubQ 1,000 mcg pembrolizumab (KEYTRUDA) IV 200 mg PEMEtrexed (ALIMTA) IV 500 mg/m2/dose = 760 mg [facility]Y (AMB) 12/12/2016 Day, Cycle Day 1, [...] (ALIMTA) IV 500 mg/m2/dose = 760 mg Assessment/plan: Erinn is fine today for the planned decrease in prednisone from 10 mg to 5 mg. That is less than maintenance so she should not have any problems with secondary cushingoid side effects on that dosage. I had like to leave her on the 5 mg for a month and then will consider going to every other day treatment. I would like to restage her with another CT scan of the chest and will arrange that locally. If that is clear then we can make a referral for further evaluation of her small thyroid nodule as seen on local ultrasound. We will go ahead and flush her port today and will see her back in a month post scan. documented in this encounter Plan of Treatment Upcoming Encounters Date Type Specialty Care Team Description 11/28/2021 Hospital Encounter Radiology Harlan Parmar MD [facility] DR HEMATOLOGY/ONCOLOGY DEPT. [place], [place] [address] (Wo rk) 11/28/2021 Appointment Radiology Harlan Parmar M D [facility] DR HEMATOLOGY/ONCOLOGY DEPT. [place], [place] [address] (Wo rk) 12/01/2021 Office Visit Hematology and Oncology Harlan Parmar MD [facility] DR HEMATOLOGY/ONCOLOGY DEPT. [place], [place] [address] (Wo rk) documented as of this encounter Visit Diagnoses Diagnosis Primary malignant neoplasm of right lowe r lobe of lung Malignant neoplasm of lower lobe, bronch us, or lung Clostridium difficile colitis Intestinal infection due to clostridium difficile documented in this encounter Care Teams Upholsterer Assembly Line Relationship Specialty Start Date End Date Fernanda [place] APRN PCP - General Family Medicine 08/14/16 08/26/[address] [place] [address] documented as of this encounter
--- OUTSIDE RECORDS SUMMARY | 2021-11-25 00:29 | XMS_ITS | Encounter Summary ---
:1950 Author Organization [facility] [place] [address] Care Team Providers Name Role Phone Yadira Nunez DO Primary Care Provider Reason for Visit Consultation (Routine) - Closed Specialty Diagnoses / Procedures Referred By Contact Refer red To Contact Endocrinology Diagnoses Disorder of thyroid, unspecified Nontoxic single thyroid nodule Yadira Nunez, [facility] Endocrinology 3b Procedures FNA, THYROID NODULE DO [facility] [address] [place] [phone] [place], [place] Phone: [phone] Referral ID Status Reason Start Date Expiration Date Visits V isits Requested Authorized [id number] Closed Consult, Test 08/27/2019 08/26/2020 [facility] PCP Updated and/or Approved Encounter Details Date Type Department Care Team Description 10/31/2019 Office Visit Endocrinology at [facility] Good Cintron R, Hypothyroidism due to drugs; [facility] [place] [address] CENTER [phone] [place] [address] Social History Tobacco Use Types Packs/Day Years [...] Sign Reading Time Taken Comments Blood Pressure 115/64 10/31/2019 10:29 AM EDT Pulse 71 10/31/2019 10:29 AM EDT Temperature 37.1 ??C (98.8 ??F) 10/31/2019 10:29 AM EDT Respiratory Rate - - Oxygen Saturation 98% 10/31/2019 10:29 AM EDT Inhaled Oxygen Concentration - - Weight 59.4 kg (131 lb) 10/31/2019 10:29 AM EDT Height 154.9 cm (5' 1) 10/31/2019 10:29 AM EDT Body Mass Index 24.75 10/31/2019 10:29 AM EDT documented in this encounter Progress Notes Good Ortiz MD - 10/31/2019 10:30 AM EDT Images from the original note were not included. Endocrinology Outpatient Visit Name: Divya Mobley Friend Date of visit: 10/31/19 Referral requested by: Yadira Nunez DO Reason for referral: Thyroid nodule HPI: Divya Mobley Friend is a 68 y.o. female with a history significant for Stage 4 adenocarcinoma of lung s/p chemo/immunotherapy, in remission, Hypothyroidism not on medication for last 2 months, Multiple sclerosis, and anxiety disorder, is here for evaluation of thyroid nodule. She has a h/o right thyroid nodule that remained stable in size since 2018. Her recent PET/CT showedmildly FDG avid nodule in right thyroid lobe, decreased in intensity compared to prior and likely represents a benign nodule. Family history of thyroid cancer: no History of head/neck irradiation: no Biotin use: no Review of Systems: General: low energy level, 10 lb weight gain over last 6 months, hair loss + HEENT: Difficulty swallowing: no Hoarse voice: no Globus sensation: no Skin: no rashes CV: no lower extremity edema Resp: no breathing difficulty Abd: constipation + Psych: anxiety + MSK: muscle aches + Current Outpatient Medications: ??? albuterol 90 mcg/actuation HFA Aerosol Inhaler, Inhale 2 puffs into the lungs every 4 hours as needed for Wheezing. Use with spacer, Disp: , Rfl: ??? escitalopram oxalate (LEXAPRO) 5 mg Tablet, Take 10 mg by mouth daily., Disp: , Rfl: 0 ??? loperamide (IMODIUM) 2 mg Capsule, Take 1 capsule by mouth 4 times daily as needed for Diarrhea., Disp: 30 tablet, Rfl: 0 ??? atenolol [...] Tablet, 0.5 mg., Disp: , Rfl: ??? levothyroxine (Synthroid) 50 mcg Tablet, Take 50 mcg by mouth daily., Disp: , Rfl: ??? magnesium oxide (Mag-Ox) 400 mg (241.3 mg magnesium) Tablet, Take 400 mg by mouth daily. Take one PO daily., Disp: , Rfl: ??? triamcinolone (KENALOG) 0.1 % Lotion, Apply topically 2 times daily. (Patient not taking: Reported on 10/31/2018), Disp: 60 mL, Rfl: 3 ??? prochlorperazine (COMPAZINE) 10 mg Tablet, Take 1 tablet by mouth every 6 hours as needed for Nausea. (Patient not taking: Reported on 10/31/2018), Disp: 30 tablet, Rfl: 1 ??? EPINEPHrine 0.3 mg/0.3 mL Auto-Injector, Reported on 10/09/2016, Disp: , Rfl: 0 Patient Active Problem List Diagnosis Code ??? Primary malignant neoplasm of right lower lobe of lung C34.31 ??? 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 APPENDECTOMY 2007 ??? INGUINAL HERNIA REPAIR 1994 ??? PRO [facility] EBUS GUIDED SAMPL 04/03 NODE STATION/STRUX N/A 10/19/2016 BRONCH, W ENDOBRONCHIAL ULTRASOUND (EBUS) GUIDED SAMPLING, 1/2 NODES (WRVU 4.71) performed by Tunde Wang MD at [facility] MAIN OR ??? PRO COLONOSCOPY, BIOPSY N/A 12/21/2014 COLONOSCOPY FLEXIBLE, WITH BX performed by Joaquin Freeman MD at [facility] ENDOSCOPY ??? PRO UPPER GI ENDOSCOPY, DIAGNOSTIC N/A 10/19/2016 ENDOSCOPY, UPPER GI, DIAGNOSTIC, WITH OR WITHOUT SPECIMENS performed by Tunde Wang MD at [facility] MAIN OR ??? MARCO AND BSO 1989 ??? TONSILLECTOMY Social History Tobacco Use ??? Smoking status: Former Smoker Packs/day: 0.25 Years: 52.00 Pack years: 13.00 Types: Cigarettes ??? Smokeless tobacco: Former User Quit date: 07/05/2019 ??? Tobacco comment: 3 cigarettes a day for last 25 years Substance Use Topics ??? Alcohol use: No ??? Drug use: No family history includes Colorectal Cancer in her mother; Diabetes in her father and sister; Lupus inher brother. Allergies Allergen Reactions ??? Bee Sting [Hymenoptera Allergenic Extract] Anaphylaxis ??? Contrast [Iodine And Iodide Containing Products] Hives, Shortness Of Breath, Itching and Palpitations ??? Cortisone Other (See Comments) Pt. States she passed out ??? Naproxen ??? Nickel Rash ??? Penicillins ??? Sulfa (Sulfonamide Antibiotics) Physical Exam: BP 115/64 Pulse 71 Temp 37.1 ??C (98.8 ??F) Ht 154.9 cm (5' 1) Wt 59.4 kg (131 lb) SpO2 98% BMI 24.75 kg/m?? General: No acute distress, well nourished and well hydrated Eyes: no lid lag; normal eye movements Nose/mouth: mucous membranes moist Neck: no supraclavicular fat pads; no palpable thyroid enlargement Lymphatic: no palpable cervical lymph nodes Respiratory: symmetrical chest expansion Cardiovascular: normal S1, S2 Skin: normal temperature/texture Neurological: no tremors Psychological: alert/oriented to person, place, time; normal affect; memory intact; normal judgement/insight Thyroid US from Aug, 2019 PET/CT from September, HEAD/NECK: Persistent small mildly FDG avid nodule in the right lobe of the thyroid, decreased in intensity compared to prior and which likely represents a benign thyroid neoplasm. Normal activity in all other soft tissue regions of the neck and visualized lower head. No adenopathy. Laboratory Data: Assessment: Divya Lucas is a 68 y.o. female with a history significant for Stage 4 adenocarcinoma of lung s/p chemo/immunotherapy, in remission, Hypothyroidism not on medication for last 2 months, Multiple sclerosis, and anxiety disorder, is here for evaluation of thyroid nodule. She has a h/o right thyroid nodule that remained stable in size since 2018. Her recent PET/CT showedmildly FDG avid nodule in right thyroid lobe, decreased in intensity compared to prior and likely represents a benign nodule. Office based Thyroid US: Right lobe: Measures 4.1 x 1.3 x 1.7 cm, heterogenous, no increased vasculariity. There is a subcentimeter nodule measuring 0.5 x 0.8 x 0.5 cm solid, hypoechoic nodule on right lower pole, with well defined margins, with mild increase in vascularity and with no intranodal calcifications. There are 2 tiny cysts on right lobe. Isthmus: Measures 0.25 cm, homogeneous, no nodules or cysts found. Left lobe: Measures 2.3 X 1.3 x 1 cm, heterogenous, no increased vascularity, one subcentimeter cystand a pseudonodule noted. She has a sub-centimeter thyroid nodule on right lower pole that remained stable since 2018 and has no suspicious features. Recent PET scan is reassuring. This nodule does not meet criteria for FNA. She has a h/o Hypothyroidism, off medication for 2 months when she ran off her pills. She has symptoms consistent with hypothyroidism like weight gain, constipation, low energy levels and hair loss. Recommendations: - Resume Levothyroxine 50 mcg daily. Take it on an empty stomach, at least 1 hr before breakfast andspace from other medications (iron, Magnesium, calcium, PPI, multivitamin, mineral supplements) by at least 3-4 hr to ensure full absorption of thyroid medication. - Recheck thyroid function in 6 weeks. Lab routed to [facility] lab. - TPO ab results pending. Thank you for allowing me participate in the care of this pleasant patient. D/W Dr. Kassi Ortiz Fellow, Endocrinology, Diabetes and Metabolism [facility] Good Ortiz MD - 10/31/2019 10:30 AM EDT ENDOCRINOLOGY THYROID ULTRASOUND REPORT Patient:Divya Lucas, [id number] Date of exam: 10/31/2019 Indication: Thyroid nodule Comparison: Thyroid US from Aug, 2019 Performed by: Good Ortiz/Cayla Solitario MD Real time images of the thyroid gland were obtained using a BK US machine. All measurements are given as Longitudinal/Sagittal x AP x Transverse. Right Lobe: Measures 4.1 x 1.3 x 1.7 cm, heterogenous, no increased vasculariity. There is a subcentimeter nodule measuring 0.5 x 0.8 x 0.5 cm solid, hypoechoic nodule on right lowerpole, with well defined margins, with mild increase in vascularity and with no intranodal calcifications. There are 2 tiny cysts on right lobe. Left Lobe: Measures 2.3 X 1.3 x 1 cm, heterogenous, no increased vascularity, one subcentimeter cyst and a pseudonodule noted. Isthmus: The isthmus measures 0.25 cm, homogeneous, no nodules or cysts found. Lateral neck: I examined the lateral neck regions and saw no morphologically abnormal lymph nodes Impression: Sub-centimeter right lower pole solid nodule, does not meet criteria for FNA Cayla Solitario MD - 10/31/2019 10:30 AM EDT I have seen the patient and reviewed Dr. Ortiz's above history and I agree with the details as written. The assessment and plan were formulated in discussion with me and I agree with them as documented. I also directly supervised thyroid US and agree with the findings as written. She has a small thyroid nodule 0.8 cm and sub-cm cyst in the right lower pole on US (+PET activity for the nodule) with sub-optimal TSH 3.46 (target TSH 0.3-2.0 for nodule suppression). So we will resume levothyroxine 50 mcgqd (off for 2-3 mo for unclear reason) and recheck TSH in 6 weeks. Thanks for the consult. Cayla Solitario MD, PhD, FACP, FACE documented in this encounter Plan of Treatment Upcoming Encounters Date Type Specialty Care Team Description 11/28/2021 Hospital Encounter Radiology Harlan Parmar MD [facility] DR HEMATOLOGY/ONCOLOGY DEPT. [place], [place] [address] (Wo rk) 11/28/2021 Appointment Radiology Harlan Parmar M D [facility] DR HEMATOLOGY/ONCOLOGY DEPT. [place], [place] [address] (Wo rk) 12/01/2021 Office Visit Hematology and Oncology Harlan Parmar MD [facility] DR HEMATOLOGY/ONCOLOGY DEPT. [place], [place] [address] (Wo rk) documented as of this encounter Procedures Procedure Name Priority Date/Time Associated Comments Diagnosis HC VENIPUNCTURE Routine 10/31/2019 12:04 Thyroid nodule Result s for this PM EDT procedure are i n the results section. HC TOTAL T3 Routine 10/31/2019 12:04 Thyroid nodule Results f or this PM EDT procedure are i n the results section. HC THYROID Routine 10/31/2019 12:04 Thyroid nodule Results f or this STIMULATING HORMONE, PM EDT procedu re are in SERUM the results section. HC FREE THYROXINE Routine 10/31/2019 12:04 Thyroid nodule Resu lts for this (T4) PM EDT procedure are i n the results section. documented in this encounter Results Thyroid peroxidase antibody (10/31/2019 12:04 PM EDT) P athologist Signature Thyroperox Ab <10 <=34 IU/mL [facility] Specimen Anatomical Collection Method Collection Time Receive d Time (Source) Location / / Volume Laterality Blood specimen 10/31/2019 12:04 0 4:13 (specimen) PM EDT PM EDT Resulting Agency Comment Spec In Lab Cayla Solitario MD IMMUNOLOGY ORDERABLES Performing Organization Address City/[facility]/[place] [address] T3 Total (10/31/2019 12:04 PM EDT) P athologist Signature T3, Total 112 75 - 170 [facility] CECE ng/dL [facility] Specimen Anatomical Collection Method Collection Time Receive d Time (Source) Location / / Volume Laterality Blood specimen 10/31/2019 12:04 0 (specimen) PM EDT 12:38 PM EDT Resulting Agency Comment Spec In Lab Cayla Solitario MD CHEMISTRY ORDERABLES Performing Organization Address City/[facility]/[place] [address] T4, free (10/31/2019 12:04 PM EDT) P athologist Signature Free T4 0.96 0.93 - 1.70 [facility] CECE ng/dL [facility] Specimen Anatomical Collection Method Collection Time Receive d Time (Source) Location / / Volume Laterality Blood specimen 10/31/2019 12:04 0 (specimen) PM EDT 12:38 PM EDT Resulting Agency Comment Spec In Lab Cayla Solitario MD CHEMISTRY ORDERABLES Performing Organization Address City/[facility]/[place] [address] TSH (10/31/2019 12:04 PM EDT) P athologist Signature TSH 3.46 0.27 - 4.20 [place] CECE mcIU/mL [facility] Specimen Anatomical Collection Method Collection Time Receive d Time (Source) Location / / Volume Laterality Blood specimen 10/31/2019 12:04 0 (specimen) PM EDT 12:38 PM EDT Resulting Agency Comment Spec In Lab Cayla Solitario MD CHEMISTRY ORDERABLES Performing Organization Address City/[facility]/ZIP [place] [address] documented in this encounter Visit Diagnoses Diagnosis Hypothyroidism due to drugs Other iatrogenic hypothyroidism Thyroid nodule Nontoxic uninodular goiter documented in this encounter Care Teams Lithographic Plate Maker Apprentice Relationship Specialty Start Date End Date Yadira Nunez DO PCP - General Family Medicine 08/27/[address] [place] [address] documented as of this encounter
--- OUTSIDE RECORDS SUMMARY | 2021-11-25 00:29 | XMS_ITS | Encounter Summary ---
:1950 Author Organization [facility] [place] [address] Care Team Providers Name Role Phone Yadira Nunez DO Primary Care Provider Reason for Visit Reason Onset Date Comments Other 09/03/2019 COVID-19 Pre-screeni ng Encounter Details Date Type Department Care Team Description 09/03/2019 Telephone Hematology/Oncology at [facility] (COVID-19 [facility] Pre-screening) [address] [place] [phone] Social History Tobacco Use Types Packs/Day Years [...] this encounter Miscellaneous Notes Telephone Encounter - [facility] - 09/03/2019 3:27 PM EDT Called Divya to inform her of the following: As a new precaution with COVID-19 we are calling all patients before they come in for their appointment to screen for any potential symptoms. 1. EXPOSURE: ???Have you been in contact with anyone suspected or confirmed to have COVID-19 in the past 14 days??? No 2. Do you have a fever, cough, or shortness of breath? No [if they say yes to symptoms but no to exposure OR yes to symptoms and yes to exposure include the following and route to triage] I am going to forward this information on to our triage nurse. Someone should be calling you about next steps in regards to your appointment. Another precaution we are taking is that we are not allowing visitors at this time. If needed, someone may bring you to your appointment but they will be asked to wait outside. If you develop symptoms of shortness of breath, cough, or fever prior to your appointment do not come in for your appointment. Please call the Cancer Center before coming in. Divya states she has not been out of the state [place] or [place] in past 30 days. Divya state she has shortness of breath but that has been for a long time due to health issues. documented in this encounter Plan of Treatment Upcoming Encounters Date Type Specialty Care Team Description 11/28/2021 Hospital Encounter Radiology Harlan Parmar MD [facility] DR HEMATOLOGY/ONCOLOGY DEPT. [place], [place] [address] (Wo rk) 11/28/2021 Appointment Radiology Harlan Parmar M D [facility] DR HEMATOLOGY/ONCOLOGY DEPT. [place], [place] [address] (Wo rk) 12/01/2021 Office Visit Hematology and Oncology Harlan Parmar MD [facility] DR HEMATOLOGY/ONCOLOGY DEPT. [place], [place] [address] (Wo rk) documented as of this encounter Visit Diagnoses Not on filedocumented in this encounter Care Teams Ecological Economist Relationship Specialty Start Date End Date Yadira Nunez DO PCP - General Family Medicine 08/27/19 4 [facility] [place] [address] documented as of this encounter
--- OUTSIDE RECORDS SUMMARY | 2021-11-25 00:29 | XMS_ITS | Encounter Summary ---
:1950 Author Organization [facility] [place] [address] Care Team Providers Name Role Phone Fernanda Evans TRANSLATIONAL SPECIALIST Primary Care Provider Encounter Details Date Type Department Care Team Description 08/07/2017 Orders Only Hematology and Padmini Vargas Primary m alignant Oncology at [facility] TRANSLATIONAL SPECIALIST neoplasm of right [facility] [address] of [address] INTERNAL MEDICINE [place] [id number] [phone] Social History Tobacco Use Types Packs/Day Years [...] Parmar MD [facility] HEMATOLOGY/ONCOLOGY DEPT. [place], [place] [address] (Wo rk) 11/28/2021 Appointment Radiology Harlan Parmar M D [facility] HEMATOLOGY/ONCOLOGY DEPT. [place], [place] [address] (Kai fermin) 12/01/2021 Office Visit Hematology and Oncology Harlan Parmar MD [facility] HEMATOLOGY/ONCOLOGY DEPT. [place], [place] [address] (Wo rk) documented as of this encounter Visit Diagnoses Diagnosis Primary malignant neoplasm of right lowe r lobe of lung Malignant neoplasm of lower lobe, bronch us, or lung documented in this encounter Care Teams Network Pricing Consultant Relationship Specialty Start Date End Date Fernanda Evans APRN PCP - General Family Medicine 08/14/16 08/26/[address] [place] [address] documented as of this encounter
--- OUTSIDE RECORDS SUMMARY | 2021-11-25 00:29 | XMS_ITS | Encounter Summary ---
:1950 Author Organization [place] [address] Care Team Providers Name Role Phone Nuha Evansn Itz ROBLES Primary Care Provider Encounter Details Date Type Department Care Team Description 10/31/2018 Office Visit Hematology/Oncology Nellie Parmar MD Primary malignant neoplasm of right lowe r lobe of lung; at [facility] Hypothyroidism due to drugs [address] [place] [address] [place] HEMATOLOGY/ONCOLO [id number] [place] DEPT. [phone] [place], [place] [address] Social History Tobacco Use Types [...] Sign Reading Time Taken Comments Blood Pressure 105/39 10/31/2018 8:34 AM EDT Pulse 67 10/31/2018 8:34 AM EDT Temperature 36.7 ??C (98.1 ??F) 10/31/2018 8:34 AM EDT Respiratory Rate 16 10/31/2018 8:34 AM EDT Oxygen Saturation 97% 10/31/2018 8:34 AM EDT Inhaled Oxygen Concentration - - Weight 57.2 kg (126 lb) 10/31/2018 8:34 AM EDT Height 164.8 cm (5' 4.88) 10/31/2018 8:34 AM EDT Body Mass Index 21.04 10/31/2018 8:34 AM EDT documented in this encounter Progress Notes Harlan Parmar MD - 10/31/2018 8:30 AM EDT Subjective: Patient ID: Divya Lucas is a 67 y.o. female. 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 difficile and prednisone for autoimmune colitis. Observation since. I am seeing the patient in the [facility]. She has a history of metastatic lung cancer. She was treated with chemotherapy/immunotherapy about 2 years ago. She is been off therapy for almost2 years. Her MS is continued to be a problem for her. She does not do well in the hot weather. She did have one fall in her yard. He did help getting up. She is not using her walker regularly. She is going to do some physical therapy and follow- up with neurology. She still gets some shortness of breath and occasional coughing. Her bowels tend towards constipation and she has not had any further diarrhea. She has continued to gain some weight even if she is off her prednisone. Patient Active Problem List Diagnosis Code ??? [...] 1 mg Tablet, , Disp: , Rfl: ??? loperamide (IMODIUM) 2 mg Capsule, Take 1 capsule by mouth 4 times daily as needed for Diarrhea.(Patient not taking: Reported on 10/31/2018), Disp: 30 tablet, Rfl: 0 ??? triamcinolone [...] place, and time. Skin: No rash noted. Labs from 10/28/2018 White count 10.9, hemoglobin 12.5, platelets 312 Creatinine 1.2, alk phos 137 PET scan, I reviewed the images personally and showed them to the patient and her EXAMINATION: PET CT STANDARD SKULL BASE TO MID-THIGH ?? CLINICAL HISTORY: 2 years after stopping chemo for stage 4 adeno ca lung ? TECHNIQUE: Following IV injection of 53-phsptu-6-deoxyglucose (FDG) a standard uptake of approximately 60 minutes, a noncontrast CT scan followed by a PET scan were acquired from the base of the skull to mid thighs. The noncontrast CT was used for anatomic localization and photon attenuation correction of the PET scan. ?? Blood glucose level: 104 (mg/dL) ?? FDG dose: 8.7 mCi ?? COMPARISON: CT chest 02/18/2018 and PET/CT 02/27/2017 ?? FINDINGS: ?? HEAD/NECK: A small FDG avid nodule in the right lobe of thyroid (axial image 45), stable compared to prior study of 02/27/2017. Normal activity in all other soft tissue regions. No adenopathy ?? CHEST: Again seen are multiple FDG avid nodular opacities in both lungs, most of which have a semisolid or groundglass appearance. These opacities are more numerous in the right upper lobe, with additional lesions also present in the right lower lobe including a large right lung base cystic opacity (axial image 97), in the medial superior segment of the left lower lobe (axial image 70), and in the left upper lobe (axial images 61 and 71). Only one lesion is new compared to the most recent CT of 02/18/2018 in the lateral right upper lobe (axial image 60) measuring 9 mm. The other lesions are stable to slightly increased in anatomic size compared to prior CT of 02/18/2018, and modestly increased in size compared to the remote PET/CT of 02/19/2017. No adenopathy Incidental CT finding of coronary and aortic calcifications. ?? ABDOMEN/PELVIS: Normal activity in all soft tissue regions. No adenopathy. Incidental CT finding of mild diffuse hepatic steatosis. ?? SKELETON/EXTREMITIES: Normal activity in all regions of the axial and visualized appendicular skeleton. A small focus of activity lateral adjacent to the left femoral neck is consistent with enthesopathy. ?? IMPRESSION 1. Multiple FDG avid nodular opacities in both lungs as detailed above, only one of which is new measuring 9 mm in the lateral right upper lobe while the other lesions are stable to slightly increased in anatomic size compared to most recent CT of 02/18/2018. 2. No other sites of suspected active metastatic disease. 3. Incidental finding of a small FDG avid nodule in the right lobe of thyroid, consistent with a benign versus malignant thyroid neoplasm. ?? Thank you for letting us participate in the care of this patient. For questions regarding this report, please contact the number below. Assessment and Plan: 67-year-old female with stage IV adenocarcinoma of the lung. She had 4 months of combined chemo/immunotherapy and had a nice response which has been durable. Her current PET scan does show some minimal amounts of progression in the lung but no substantial progression and no bone disease. She also has a thyroid nodule which has been stable for the last year and a half. At this point I do not think there is sufficient progression to warrant re- institution of treatment.The patient agrees. We will continue to follow her off of treatment. I will see her back in 3 months with a chest x-ray and laboratory studies. If she gets more symptoms I would be happy to see her sooner. documented in this encounter Plan of Treatment Upcoming Encounters Date Type Specialty Care Team Description 11/28/2021 Hospital Encounter Radiology Harlan Parmar MD [facility] HEMATOLOGY/ONCOLOGY DEPT. [place], [place] [address] (Wo zander) 11/28/2021 Appointment Radiology Harlan Parmar M D [facility] HEMATOLOGY/ONCOLOGY DEPT. [place], [place] [address] (Kai fermin) 12/01/2021 Office Visit Hematology and Oncology Harlan Parmar MD [facility] HEMATOLOGY/ONCOLOGY DEPT. 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
--- OUTSIDE RECORDS SUMMARY | 2021-11-25 00:29 | XMS_ITS | Encounter Summary ---
:1950 Author Organization [facility] [place] [address] Care Team Providers Name Role Phone Nathan Fernanda Mobley APRN Primary Care Provider Encounter Details Date Type Department Care Team Description 07/04/2018 Orders Only Hematology/Oncology at [address] [phone] Social History Tobacco Use [...] [facility] DR HEMATOLOGY/ONCOLOGY DEPT. [place], [place] [address] (Kai fermin) 11/28/2021 Appointment Radiology Harlan Parmar M D [facility] DR HEMATOLOGY/ONCOLOGY DEPT. [place], [place] [address] (Kai fermin) 12/01/2021 Office Visit Hematology and Oncology Harlan Parmar MD [facility] HEMATOLOGY/ONCOLOGY DEPT. [place], [place] [address] (Kai fermin) documented as of this encounter Visit Diagnoses Not on filedocumented in this encounter Care Teams Transfer Iron Operator Relationship Specialty Start Date End Date Fernanda Evans APRN PCP - General Family Medicine 08/14/16 08/26/[address] [place] [address] [place] [address] documented as of this encounter
--- OUTSIDE RECORDS SUMMARY | 2021-11-25 00:29 | XMS_ITS | Encounter Summary ---
:1950 Author Organization [facility] [place] [address] Care Team Providers Name Role Phone Nathan, Fernandacarlos eduardo Mobley APRN Primary Care Provider Reason for Referral Diagnostic Test (Routine) - Closed Specialty Diagnoses / Procedures Referred By Contact Refer red To Contact Radiology Diagnoses Primary malignant neoplasm of right lower lobe of lung Lopez Billings MD [facility] Interventionl Rad Procedures IR Mediport Removal [address] [place] [phone] Fax: Referral ID Status Reason Start Date Expiration Date Visits V isits Requested Authorized [id number] Closed Specialty 09/24/2017 09/24/2018 1 1 Service Requested Encounter Details Date Type Department Care Team Description 09/24/2017 Orders Only Hematology/Oncology Lopez Billings Pri mary malignant at [facility] neoplasm of right [address] [place] [address] DR [place] [phone] (Wo rk) Social History Tobacco Use Types [...] Encounter Radiology Harlan Parmar MD [facility] DR HEMATOLOGY/ONCOLOGY DEPT. [place], [place] [address] (Wo rk) 11/28/2021 Appointment Radiology Harlan Parmar M D [facility] HEMATOLOGY/ONCOLOGY DEPT. [place], [place] [address] (Wo rk) 12/01/2021 Office Visit Hematology and Oncology Harlan Parmar MD [facility] DR HEMATOLOGY/ONCOLOGY DEPT. [place], [place] [address] (Wo rk) documented as of this encounter Results IR Mediport Removal (10/05/2017 [...] nurse. Attending: Dr. Schulte Lopez Billings MD IMG IR ORDERABLES documented in this encounter Visit Diagnoses Diagnosis Primary malignant neoplasm of right lowe r lobe of lung Malignant neoplasm of lower lobe, bronch us, or lung Pre-op testing Preoperative examination, unspecified Primary malignant neoplasm of right lowe r lobe of lung Malignant neoplasm of lower lobe, bronch us, or lung documented in this encounter Care Teams Stonehand Relationship Specialty Start Date End Date Fernanda Evans APRN PCP - General Family Medicine 08/14/16 08/26/19 [address] [place] [address] documented as of this encounter
--- OUTSIDE RECORDS SUMMARY | 2021-11-25 00:29 | XMS_ITS | Encounter Summary ---
:1950 Author Organization [facility] [place] [address] Care Team Providers Name Role Phone Nuha Evanscarlos eduardo Mobley APRN Primary Care Provider Reason for Visit Reason Comments IV Access Mediport flush only Encounter Details Date Type Department Care Team Description 05/15/2017 Infusion Hematology Oncology at [facility] malignant neoplasm [facility] of right lower lobe of lung [address] [place], [place] [phone] Social History Tobacco Use Types Packs/Day [...] encounter Progress Notes Lea Vasquez RN - 05/15/2017 1:15 PM EST INFUSION THERAPY ADMINISTRATION NOTES DIAGNOSIS: Lung cancer [...] Radiology Harlan Parmar MD [facility] HEMATOLOGY/ONCOLOGY DEPT. [place], [place] [address] (Wo rk) 11/28/2021 Appointment Radiology Harlan Parmar M D [facility] HEMATOLOGY/ONCOLOGY DEPT. [place], [place] [address] (Wo rk) 12/01/2021 Office Visit Hematology and Oncology Harlan Parmar MD [facility] HEMATOLOGY/ONCOLOGY DEPT. [place], [place] [address] (Wo rk) documented as of this encounter Visit Diagnoses Diagnosis Primary malignant neoplasm of right lowe r lobe of lung Malignant neoplasm of lower lobe, bronch us, or lung documented in this encounter Care Teams Supervisor Type Bar And Segment Relationship Specialty Start Date End Date Fernanda Evans APRN PCP - General Family Medicine 08/14/16 08/26/[address] [place] [address] [place] [address] documented as of this encounter
--- OUTSIDE RECORDS SUMMARY | 2021-11-25 00:29 | XMS_ITS | Encounter Summary ---
:1950 Author Organization [facility] [place] [address] Care Team Providers Name Role Phone Nuha Evanscarlos eduardo Mobley APRN Primary Care Provider Encounter Details Date Type Department Care Team Description 06/04/2019 Hospital [place] Peg Brock MD (P-FAMILY/PERSONAL [facility] EMERGENCY /PT ILL) [facility] [address] [place] HEMATOLOGY/ONCOL [address] OGY DEPT. [phone] [place] [address] Social History Tobacco Use Types Packs/Day Years [...] MD [facility] DR HEMATOLOGY/ONCOLOGY DEPT. [place], [place] [address] (Wo rk) 11/28/2021 Appointment Radiology Harlan Parmar M D [facility] HEMATOLOGY/ONCOLOGY DEPT. [place], [place] [address] (Wo rk) 12/01/2021 Office Visit Hematology and Oncology Harlan Parmar MD [facility] HEMATOLOGY/ONCOLOGY DEPT. [place], [place] [address] (Wo rk) documented as of this encounter Visit Diagnoses Not on filedocumented in this encounter Care Teams Pest Controller Assistant Relationship Specialty Start Date End Date Fernanda Evans APRN PCP - General Family Medicine 08/14/16 08/26/[address] [place] [address] documented as of this encounter
--- OUTSIDE RECORDS SUMMARY | 2021-11-25 00:29 | XMS_ITS | Encounter Summary ---
:1950 Author Organization [facility] [place] [address] Care Team Providers Name Role Phone Fernanda Evans CONSUMER LOAN OFFICER Primary Care Provider Encounter Details Date Type Department Care Team Description 03/08/2018 Office Visit Hematology/Oncology Tomasa Conner, Prim sanjeev malignant at [facility] CONSUMER LOAN OFFICER neoplasm of right [address] [place] [address] [place] [address] RADIATION ONCOLOGY [phone] [place] [address] Social History Tobacco Use Types Packs/Day Years Used Date Current Every Day Smoker Cigarettes 0.25 52 Smokeless Tobacco: Never Used Tobacco Cessation: Ready to Quit: No; Co unseling Given: No Comments: 3 cigarettes a day for last 25 years Alcohol Use Standard Drinks/Week Comments No 0 (1 standard drink = 0.6 oz pure alcoho l) Sex Assigned at Date Recorded Female 07/30/2020 4:21 AM EDT documented as of this encounter Last Filed Vital Signs Vital Sign Reading Time Taken Comments Blood Pressure 97/40 03/08/2018 9:31 AM EST Pulse 58 03/08/2018 9:31 AM EST Temperature 36.5 ??C (97.7 ??F) 03/08/2018 9:31 AM EST Respiratory Rate 16 03/08/2018 9:31 AM EST Oxygen Saturation 100% 03/08/2018 9:31 AM EST Inhaled Oxygen Concentration - - Weight 55.7 kg (122 lb 12.8 oz) 03/08/2018 9:31 AM EST Height - - Body Mass Index 20.51 01/25/2018 3:12 PM EDT documented in this encounter Patient Instructions Patient InstructionsTomasa Conner APRN - 03/08/2018 9:30 AM EST She will have an ultrasound done of her thyroid in the next 2 weeks and return to clinic in 3 months with labs and chest xray. documented in this encounter Progress Notes Tomasa Conner APRN - 03/08/2018 9:30 AM EST Images from the original note were not included. Diagnosis: Stage IV adenocarcinoma right lower lobe with multiple pulmonary, lymph node and bone metastasis, garbage collector driver negative. Subjective: Erinn comes in today for follow-up. She is no longer taking the prednisone.. She does have irritable bowel syndrome and the symptoms she has are more consistent with that. She does note some occasional chest pain with deep breath or twisting. She denies any cough. She has no hemoptysis no other problems. She No longer has her port. She continues to be seen locally because of her mental health issues. Her anxiety/depression are major issues for her and she spends most of her time in the house because of them. They have recently made a change in her medication. Hopefully this will help her. She isaccompanied by her today. She is here to review her ct scan that she had done. She also states that she has pain in her thyroid area and she feels that it is larger. Past medical history and social history are reviewed and unchanged Past Medical History: Diagnosis Date ??? GERD (gastroesophageal reflux disease) ??? IBS (irritable bowel syndrome) ??? Lung cancer, primary, with metastasis from lung to other site ??? Multiple sclerosis ??? Primary malignant neoplasm of right lower lobe of lung 11/20/2016 ??? SVT (supraventricular tachycardia) Past Surgical History: Procedure Laterality Date ??? APPENDECTOMY 2007 ??? INGUINAL HERNIA REPAIR 1994 ??? PRO [facility] EBUS GUIDED SAMPL 1/2 NODE STATION/STRUX N/A 10/19/2016 BRONCH, W ENDOBRONCHIAL ULTRASOUND (EBUS) GUIDED SAMPLING, 1/2 NODES (WRVU 4.71) performed by Tunde Wang MD at [facility] MAIN OR ??? PRO COLONOSCOPY, BIOPSY N/A 12/21/2014 COLONOSCOPY FLEXIBLE, WITH BX performed by Joaquin Freeman MD at [facility] ENDOSCOPY ??? PRO UPPER GI ENDOSCOPY, DIAGNOSTIC N/A 10/19/2016 ENDOSCOPY, UPPER GI, DIAGNOSTIC, WITH OR WITHOUT SPECIMENS performed by Tunde Wang MD at [facility] MAIN OR ??? MARCO AND BSO 1989 ??? TONSILLECTOMY Allergies Allergen Reactions ??? Bee Sting [Hymenoptera Allergenic Extract] Anaphylaxis ??? Contrast [Iodine And Iodide Containing Products] Hives, Shortness Of Breath, Itching and Palpitations ??? Cortisone Other (See Comments) Pt. States she passed out ??? Naproxen ??? Nickel Rash ??? Penicillins ??? Sulfa (Sulfonamide Antibiotics) Current Outpatient Medications on File Prior to Visit Medication Sig Dispense Refill ??? escitalopram oxalate (LEXAPRO) 5 mg Tablet Take 5 mg by mouth daily. 0 ??? loperamide (IMODIUM) 2 mg Capsule Take 1 capsule by mouth 4 times daily as needed for Diarrhea. 30 tablet 0 ??? atenolol (TENORMIN) 50 mg Tablet Take 1 tablet by mouth 2 times daily. (Patient taking differently: Take 50 mg by mouth 2 times daily. 1 tab am, 1.5 tabs pm Indications: Paroxysmal SupraventricularTachycardia) 90 tablet 3 ??? triamcinolone (KENALOG) 0.1 % Lotion Apply topically 2 times daily. 60 mL 3 ??? folic acid (FOLVITE) 1 mg Tablet Take 1 tablet by mouth daily. 90 tablet 3 ??? prochlorperazine (COMPAZINE) 10 mg Tablet Take 1 tablet by mouth every 6 hours as needed for Nausea. 30 tablet 1 ??? buPROPion (WELLBUTRIN XL) 300 mg Tablet Extended Release 24 hr take 3 tablet by mouth once daily0 ??? EPINEPHrine 0.3 mg/0.3 mL Auto-Injector Reported on 10/09/2016 0 ??? clonazePAM (KLONOPIN) 1 mg Tablet ??? [DISCONTINUED] predniSONE (DELTASONE) 5 mg Tablet Take 1 tablet by mouth daily. (Patient not taking: Reported on 01/25/2018) 90 tablet 3 ??? [DISCONTINUED] diaZEPam (VALIUM) 5 mg Tablet Take 1 tablet by mouth as needed for Anxiety. As needed pre PET scan, take 1 tab prior to and repeat once if needed (Patient not taking: Reported on 01/25/2018) 2 tablet 0 ??? [DISCONTINUED] fluconazole (DIFLUCAN) 200 mg Tablet Take 1 tablet by mouth daily. (Patient not taking: Reported on 06/18/2017) 7 tablet 0 No current facility-administered medications on file prior to visit. Family History Problem Relation Age of Onset ??? Colorectal Cancer Mother ??? Diabetes Father ??? Diabetes Sister ??? Lupus Brother Social History Socioeconomic History ??? Marital status: Spouse name: Not on file ??? Number of children: Not on file ??? Years of education: Not on file ??? Highest education level: Not on file Social Needs ??? Financial resource strain: Not on file ??? Food insecurity - worry: Not on file ??? Food insecurity - inability: Not on file ??? Transportation needs - medical: Not on file ??? Transportation needs - non-medical: Not on file Occupational History ??? Not on file Tobacco Use ??? Smoking status: Current Every Day Smoker Packs/day: 0.25 Years: 52.00 Pack years: 13.00 Types: Cigarettes ??? Smokeless tobacco: Never Used ??? Tobacco comment: 3 cigarettes a day for last 25 years Substance and Sexual Activity ??? Alcohol use: No ??? Drug use: No ??? Sexual activity: Not on file Other Topics Concern ??? Not on file Social History Narrative ??? Not on file Review of Systems Constitutional: Negative for fever, [...] supraclavicular, and axillary nodes normal Neurologic: Normal ?Non-Marketing Researcher Final DIAGNOSIS Positive for Malignancy Electronically signed [...] the pathology report and slides, the specimen ??([id number]) was selected for mutation analysis from [...] ?? TECHNIQUE: Procedure: Following IV injection of 78-temjso-7-deoxyglucose (FDG) a standard uptake of approximately 60 [...] by: ??Hermelindo Whitley MD Verified: ??10/24/2016 ?Pathologist [facility] ONCOLOGY (AMB) 11/22/2016 Day, Cycle Day 1, Cycle 1 CARBOplatin (PARAPLATIN) IV 363 mg cyanocobalamin (vitamin B-12) SubQ 1,000 mcg pembrolizumab (KEYTRUDA) IV 200 mg PEMEtrexed (ALIMTA) IV 500 mg/m2/dose = 760 mg [facility] ONCOLOGY (AMB) 12/12/2016 Day, Cycle Day 1, Cycle 2 CARBOplatin (PARAPLATIN) IV 376 mg cyanocobalamin (vitamin B-12) SubQ pembrolizumab (KEYTRUDA) IV 200 mg PEMEtrexed (ALIMTA) IV 500 mg/m2/dose = 760 mg [facility] ONCOLOGY (AMB) 01/02/2017 Day, Cycle Day 1, Cycle 3 CARBOplatin (PARAPLATIN) IV 384 mg cyanocobalamin (vitamin B-12) SubQ pembrolizumab (KEYTRUDA) IV 200 mg PEMEtrexed (ALIMTA) IV 500 mg/m2/dose = 760 mg [facility] ONCOLOGY (AMB) 01/23/2017 Day, Cycle Day 1, Cycle 4 CARBOplatin (PARAPLATIN) IV 342 mg cyanocobalamin (vitamin B-12) SubQ 1,000 mcg pembrolizumab (KEYTRUDA) IV 200 mg PEMEtrexed (ALIMTA) IV 500 mg/m2/dose = [address] [facility]2017 showed significant interval improvement with diminished prominence of multiple pulmonary masses with no new lesions identified. CT scan done at [facility] on 02/18/18 shows no interval growth of lesions identified. Laboratory done 01/15/18 shows a calcium of 91 creatinine of 1.22 ALP of 136 normal electrolytes T4 is 10.5 with a TSH of 2.57. 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 These can be durable but also patients are at risk for recurrence. Often one can reinitiate a checkpoint inhibitor even if patients were taken off of that for autoimmune problems and the response rate for reinitiation of the medication is around 50%. Fortunately now she has her autoimmune symptoms under control, and she is off the prednisone. Her last exam showed a durable and essentially complete response to treatment. She will have an ultrasound done of her thyroid in the next 2 weeks and return to clinic in 3 months with labs and chest xray. documented in this encounter Plan of Treatment Upcoming Encounters Date Type Specialty Care Team Description 11/28/2021 Hospital Encounter Radiology Harlan Parmar MD [facility] DR HEMATOLOGY/ONCOLOGY DEPT. [place], [place] [address] (Kai fermin) 11/28/2021 Appointment Radiology Haraln Parmar M D [facility] DR HEMATOLOGY/ONCOLOGY DEPT. [place], [place] [address] (Kai fermin) 12/01/2021 Office Visit Hematology and Oncology Harlan Parmar MD [facility] HEMATOLOGY/ONCOLOGY DEPT. [place], [place] [address] (Kai fermin) documented as of this encounter Visit Diagnoses Diagnosis Primary malignant neoplasm of right lowe r lobe of lung Malignant neoplasm of lower lobe, bronch us, or lung documented in this encounter Care Teams Retail Salesworker Relationship Specialty Start Date End Date Fernanda Evans APRN PCP - General Family Medicine 08/14/16 08/26/[address] [place] [address] documented as of this encounter
--- OUTSIDE RECORDS SUMMARY | 2021-11-25 00:29 | XMS_ITS | Encounter Summary ---
:1950 Author Organization [facility] [place] [address] Care Team Providers Name Role Phone Fernanda Evans APRN Primary Care Provider Encounter Details Date Type Department Care Team Description 02/05/2019 Telephone Hematology/Oncology at [facility] [address] [phone] Social History Tobacco Use [...] Radiology Harlan Parmar MD [facility] [address] HEMATOLOGY/ONCOLOGY DEPT. [place], [place] [address] (Kai fermin) 11/28/2021 Appointment Radiology Harlan Parmar M D [facility] HEMATOLOGY/ONCOLOGY DEPT. [place], [place] [address] (Kai fermin) 12/01/2021 Office Visit Hematology and Oncology Harlan Parmar MD [facility] HEMATOLOGY/ONCOLOGY DEPT. [place], [place] [address] (Kai fermin) documented as of this encounter Visit Diagnoses Not on filedocumented in this encounter Care Teams Workers Compensation Defense Attorney Relationship Specialty Start Date End Date Fernanda Evans APRN PCP - General Family Medicine 08/14/16 08/26/[address] [place] [address] [place] [address] documented as of this encounter
--- OUTSIDE RECORDS SUMMARY | 2021-11-25 00:29 | XMS_ITS | Encounter Summary ---
:1950 Author Organization [facility] [place] [address] Care Team Providers Name Role Phone Fernanda Evans APRN Primary Care Provider Reason for Visit Reason Comments IV Access Hydration IV Medication Antiemetics Encounter Details Date Type Department Care Team Description 04/30/2017 Infusion Hematology Oncology at [facility] malignant neoplasm [facility] of right lower lobe of lung [address] [place] [phone] Social History Tobacco Use Types [...] encounter Progress Notes Lea Vasquez RN - 04/30/2017 2:30 PM EST INFUSION THERAPY ADMINISTRATION NOTES DIAGNOSIS: Lung cancer REASON FOR VISIT: Hydration & Antiemetics SUBJECTIVE Divya reports having diarrhea. Seen by Padmini Gonzalez APRN today. OBJECTIVE IV ACCESS: Mediport REACTIONS (DESCRIPTION, TIME, INTERVENTION AND EFFECTIVENESS) none ASSESSMENT Divya was awake, alert and tolerated treatment well. PLAN Return to clinic per routine. documented in this encounter Plan of Treatment Upcoming Encounters Date Type Specialty Care Team Description 11/28/2021 Hospital Encounter Radiology Harlan Parmar MD [facility] HEMATOLOGY/ONCOLOGY DEPT. [place], [place] [address] (Wo rk) 11/28/2021 Appointment Radiology Harlan Parmar M D [facility] HEMATOLOGY/ONCOLOGY DEPT. [place], [place] [address] (Wo rk) 12/01/2021 Office Visit Hematology and Oncology Harlan Parmar MD [facility] HEMATOLOGY/ONCOLOGY DEPT. [place], [place] [address] (Wo rk) documented as of this encounter Visit Diagnoses Diagnosis Primary malignant neoplasm of right lowe r lobe of lung Malignant neoplasm of lower lobe, bronch us, or lung documented in this encounter Administered Medications Inactive Administered Medications - up to 3 most recent administrations Medication Order MAR Action Action Date Dose Rate Site dexamethasone (DECADRON) injection 4 Given 04/30/2017 3:26 PM ES T 4 mg mg 4 mg, Intravenous, ONCE, 1 dose, On Sun04/30/17 at 1545 famotidine (PEPCID) injection 20 mg Given 04/30/2017 3:28 PM EST 20 mg 20 mg, Intravenous, ONCE, 1 dose, On Sun04/30/17 at 1545 palonosetron (ALOXI) injection 0.25 mg Given 04/30/2017 3:11 PM EST 0.25 mg 0.25 mg, Intravenous, ONCE, 1 dose, On Sun04/30/17 at 1515, Routine sodium chloride 0.9% with New Bag 04/30/2017 3:00 PM EST 1,000 mL/ hr 1000 mL/hr potassium chloride 20 mEq infusion 1,000 mL/hr, Intravenous, CONTINUOUS, Starting on Sun04/30/17 at 1515, Until Sun04/30/17 at 1813 documented in this encounter Care Teams Manager Shift Relationship Specialty Start Date End Date Fernanda Evans APRN PCP - General Family Medicine 08/14/16 08/26/[address] [place] [address] documented as of this encounter
--- OUTSIDE RECORDS SUMMARY | 2021-11-25 00:29 | XMS_ITS | Encounter Summary ---
:1950 [place] [address] Care Team Providers Name Role Phone Fernanda Evans APRN Primary Care Provider Encounter Details Date Type Department Care Team Description 02/18/2018 Hospital Encounter Radiology Library at [facility], [facility] [employer] SITE MANAGER [facility] [place] [address] RADIATION ONCOLOGY [phone] [place] [address] (Wo rk) Social History Tobacco Use Types [...] daily. Take magnesium) Tablet one PO daily. escitalopram oxalate Take 10 mg by [...] Take 1 tablet by 7 tablet 0 03/08/2018 mg Tablet mouth daily. documented as of this encounter Plan of Treatment Upcoming Encounters Date Type Specialty Care Team Description 11/28/2021 Hospital Encounter Radiology Harlan Parmar MD [facility] HEMATOLOGY/ONCOLOGY DEPT. [place], [place] [address] (Wo rk) 11/28/2021 Appointment Radiology Harlan Parmar M D [facility] HEMATOLOGY/ONCOLOGY DEPT. [place], [place] [address] (Wo rk) 12/01/2021 Office Visit Hematology and Oncology Harlan Parmar MD [facility] HEMATOLOGY/ONCOLOGY DEPT. [place], [place] [address] (Wo rk) documented as of this encounter Procedures Procedure Name Priority Date/Time Associated Diagnosis Comme nts FILM LIBRARY Routine 02/18/2018 12:00 AM Results for this STORAGE ONLY CT EST procedure ar e in CHEST the results section. documented in this encounter Results Film Library- Storage Only CT Chest (02/18/2018 12:00 AM EST) Specimen (Source) Anatomical Location Collection Method / Collectio n Time Received Time / Laterality Volume Narrative RAD - 02/19/2018 2:08 PM EST This exam is for storage only and is aut o-finalizing. Tomasa [facility]ner APRN John FILM LIBRARY ORDERABLES Performing Organization Address City/State/ZIP Code Phon e Number [place], [place] documented in this encounter Visit Diagnoses Not on filedocumented in this encounter Care Teams Manager Park Relationship Specialty Start Date End Date Fernanda Evans APRN PCP - General Family Medicine 08/14/16 08/26/[address] [place] [address] documented as of this encounter
--- OUTSIDE RECORDS SUMMARY | 2021-11-25 00:29 | XMS_ITS | Encounter Summary ---
:1950 Author Organization [facility] [address] Care Team Providers Name Role Phone Nathan, Fernandacarlos eduardo Mobley APRN Primary Care Provider Reason for Referral Diagnostic Test (Routine) - Closed Specialty Diagnoses / Procedures Referred By Contact Refer red To Contact Radiology Diagnoses Primary malignant neoplasm of right lower lobe of lung Harlan Parmar MD [facility] Rad Nuclear Med Procedures PET CT Standard Skull Base to Mid-Thigh [facility] HEMATOLOGY/[place] [address] [place] [address] Referral ID Status Reason Start Date Expiration Date Visits V isits Requested Authorized [id number] Closed Specialty 08/31/2018 11/29/2018 1 1 Service Requested Reason for Visit Diagnostic Test (Routine) - Closed Specialty Diagnoses / Procedures Referred By Contact Refer red To Contact Radiology Diagnoses Primary malignant neoplasm of right lower lobe of lung Harlan Parmar MD [facility] Rad Nuclear Med Procedures PET CT Standard Skull Base to Mid-Thigh [facility] HEMATOLOGY/[place] [address] [place] [address] Referral ID Status Reason Start Date Expiration Date Visits V isits Requested Authorized [id number] Closed Specialty 08/31/2018 11/29/2018 1 1 Service Requested Encounter Details Date Type Department Care Team Description 10/24/2018 Hospital Encounter Nuclear Medicine at [place], Harlan, Primary malignant Peg Brock MD neoplasm of right [facility] lower lob e of lung [facility] HEMATOLOGY/ONCOL [address] OGY DEPT. [phone] [place] [address] Social History Tobacco Use Types Packs/Day Years [...] 11/28/2021 Hospital Encounter Radiology Harlan Parmar MD [facility] DR HEMATOLOGY/ONCOLOGY DEPT. [place], [place] [address] (Wo rk) 11/28/2021 Appointment Radiology Harlan Parmar M D [facility] DR HEMATOLOGY/ONCOLOGY DEPT. [place], [place] [address] (Wo rk) 12/01/2021 Office Visit Hematology and Oncology Harlan Parmar MD [facility] DR HEMATOLOGY/ONCOLOGY DEPT. [place], [place] [address] (Wo rk) documented as of this encounter Procedures Procedure Name Priority Date/Time Associated Diagnosis Comme nts NM PET CT SKULL Routine 10/24/2018 10:10 AM Primary malignant Results for this BASE TO MID-THIGH EDT neoplasm of right proce dure are in ([facility]) lower lobe of lung the resul ts section. documented in this encounter Results PET CT Standard Skull Base to Mid-Thigh (10/24/2018 10:10 AM EDT) Anatomical Region Laterality Modality Positron Emission To mography (PET) Specimen (Source) Anatomical Location Collection Method / Collectio n Time Received Time / Laterality Volume Impressions 10/24/2018 2:21 PM EDT 1. ??Multiple FDG avid nodular opacities in both lungs as detailed above, only one of which is new measuring 9 mm in th e lateral right upper lobe while the other lesions are stable to slightly inc reased in anatomic size compared to most recent CT of 02/18/2018. 2. ??No other sites of suspected active metastatic disease. 3. ??Incidental finding of a small FDG a vid nodule in the right lobe of thyroid, consistent with a benign versus malignan t thyroid neoplasm. Thank you for letting us participate in the care of this patient. For questions regarding this report, please contact e number below. ? Electronically signed by: Harlan Veloz [facility] ([phone]), at 10/24/2018 2:21 PM Narrative 10/24/2018 2:21 PM EDT EXAMINATION: PET CT STANDARD SKULL BASE TO MID-THIGH CLINICAL HISTORY: 2 years after stopping chemo for stage 4 adeno ca lung TECHNIQUE: Following IV injection of 18- cxywhq-9-grecoxspcnvv (FDG) a standard uptake of approximately 60 minutes, a no ncontrast CT scan followed by a PET scan were acquired from the base of the skull to mid thighs. The noncontrast CT was used for anatomic localization and photo n attenuation correction of the PET scan. Blood glucose level: 104 (mg/dL) FDG dose: 8.7 mCi COMPARISON: CT chest 02/18/2018 and PET/CT 7 FINDINGS: HEAD/NECK: A small FDG avid nodule in the right lob e of thyroid (axial image 45), stable compared to prior study of 02/27/2017. N ormal activity in all other soft tissue regions. No adenopathy CHEST: Again seen are multiple FDG avid nodular opacities in both lungs, most of which have a semisolid or groundglass appearan ce. These opacities are more numerous in the right upper lobe, with additional le sions also present in the right lower lobe including a large right lung base c ystic opacity (axial image 97), in the medial superior segment of the left lowe r lobe (axial image 70), and in the left upper lobe (axial images 61 and 71). Only one lesion is new compared to the m ost recent CT of 02/18/2018 in the lateral right upper lobe (axial image 60 ) measuring 9 mm. The other lesions are stable to slightly increased in anatomic size compared to prior CT of 02/18/2018, and modestly increased in si ze compared to the remote PET/CT of 02/19/2017. No adenopathy Incidental CT finding of coronary and aortic calcifications. ABDOMEN/PELVIS: Normal activity in all soft tissue regio ns. No adenopathy. Incidental CT finding of mild diffuse hepatic steatosis. SKELETON/EXTREMITIES: Normal activity in all regions of the ax ial and visualized appendicular skeleton. A small focus of activity late ral adjacent to the left femoral neck is consistent with enthesopathy. Procedure Note Harlan Veloz MD - 10/24/2018Formatti ng of this note might be different from the original. EXAMINATION: PET CT STANDARD SKULL BASE TO MID-THIGH CLINICAL HISTORY: 2 years after stopping chemo for stage 4 adeno ca lung TECHNIQUE: Following IV injection of 18- eaobwd-0-arwtwpghhicp (FDG) a standard uptake of approximately 60 minutes, a no ncontrast CT scan followed by a PET scan were acquired from the base of the skull to mid thighs. The noncontrast CT was used for anatomic localization and photo n attenuation correction of the PET scan. Blood glucose level: 104 (mg/dL) FDG dose: 8.7 mCi COMPARISON: CT chest 02/18/2018 and PET/CT 7 FINDINGS: HEAD/NECK: A small FDG avid nodule in the right lob e of thyroid (axial image 45), stable compared to prior study of 02/27/2017. N ormal activity in all other soft tissue regions. No adenopathy CHEST: Again seen are multiple FDG avid nodular opacities in both lungs, most of which have a semisolid or groundglass appearan ce. These opacities are more numerous in the right upper lobe, with additional le sions also present in the right lower lobe including a large right lung base c ystic opacity (axial image 97), in the medial superior segment of the left lowe r lobe (axial image 70), and in the left upper lobe (axial images 61 and 71). Only one lesion is new compared to the m ost recent CT of 02/18/2018 in the lateral right upper lobe (axial image 60 ) measuring 9 mm. The other lesions are stable to slightly increased in anatomic size compared to prior CT of 02/18/2018, and modestly increased in si ze compared to the remote PET/CT of 02/19/2017. No adenopathy Incidental CT finding of coronary and aortic calcifications. ABDOMEN/PELVIS: Normal activity in all soft tissue regio ns. No adenopathy. Incidental CT finding of mild diffuse hepatic steatosis. SKELETON/EXTREMITIES: Normal activity in all regions of the ax ial and visualized appendicular skeleton. A small focus of activity late ral adjacent to the left femoral neck is consistent with enthesopathy. IMPRESSION 1. Multiple FDG avid nodular opacities i n both lungs as detailed above, only one of which is new measuring 9 mm in th e lateral right upper lobe while the other lesions are stable to slightly inc reased in anatomic size compared to most recent CT of 02/18/2018. 2. No other sites of suspected active me tastatic disease. 3. Incidental finding of a small FDG iban d nodule in the right lobe of thyroid, consistent with a benign versus malignan t thyroid neoplasm. Thank you for letting us participate in the care of this patient. For questions regarding this report, please contact [facility] number below. Harlan Parmar MD IMG PET ORDERABLES documented in this encounter Visit Diagnoses Diagnosis Primary malignant neoplasm of right lowe r lobe of lung Malignant neoplasm of lower lobe, bronch us, or lung documented in this encounter Administered Medications Inactive Administered Medications - up to 3 most recent administrations Medication Order MAR Action Action Date Dose Rate Site fludeoxyglucose (F-18) FDG Given 10/24/2018 8:51 AM 8.7 mCi Right Arm injection 8.7 mCi EDT 8.7 mCi, Intravenous, ONCE PRN, 1 dose, Starting on Edna 10/24/18 at 0851, Until Edna 10/24/18 at 0851, Per Protocol, Routine documented in this encounter Care Teams Household Appliances Service Technician Relationship Specialty Start Date End Date Fernanda Evans APRN PCP - General Family Medicine 08/14/16 08/26/[address] [place] [address] documented as of this encounter
--- OUTSIDE RECORDS SUMMARY | 2021-11-25 00:29 | XMS_ITS | Encounter Summary ---
:1950 Author Organization [facility] [place] [address] Care Team Providers Name Role Phone Fernanda Evans APRN Primary Care Provider Encounter Details Date Type Department Care Team Description 01/15/2018 Hospital Encounter Radiology Library at [facility], Lopez Gallegos MD [address] [facility] [id number] [place] [phone] Social History Tobacco Use Types Packs/Day Years [...] 11/28/2021 Hospital Encounter Radiology Harlan Parmar MD [facility] DR HEMATOLOGY/ONCOLOGY DEPT. [place], [place] [address] (Wo zander) 11/28/2021 Appointment Radiology Harlan Parmar M D [facility] HEMATOLOGY/ONCOLOGY DEPT. [place], [place] [address] (Kai fermin) 12/01/2021 Office Visit Hematology and Oncology Harlan Parmar MD [facility] HEMATOLOGY/ONCOLOGY DEPT. [place], [place] [address] (Wo rk) documented as of this encounter Procedures Procedure Name Priority Date/Time Associated Diagnosis Comme nts FILM LIBRARY Routine 01/15/2018 12:00 AM Results for this STORAGE ONLY DX EDT procedure ar e in CHEST the results section. documented in this encounter Results Film Library- Storage Only DX Chest (01/15/2018 12:00 AM EDT) Specimen (Source) Anatomical Location Collection Method / Collectio n Time Received Time / Laterality Volume Narrative RAD - 01/16/2018 9:53 AM EDT This exam is for storage only and is aut o-finalizing. Lopez Billings MD IMG FILM LIBRARY ORDERABLES Performing Organization Address City/State/ZIP Code Phon e Number [place], [place] documented in this encounter Visit Diagnoses Not on filedocumented in this encounter Care Teams Breakdown Person Relationship Specialty Start Date End Date Fernanda Evans APRN PCP - General Family Medicine 08/14/16 08/26/[address] [place] [address] documented as of this encounter
--- OUTSIDE RECORDS SUMMARY | 2021-11-25 00:29 | XMS_ITS | Encounter Summary ---
:1950 Author Organization [facility] [place] [address] Care Team Providers Name Role Phone Fernanda Evans APRN Primary Care Provider Reason for Visit Reason Comments Lung Cancer Encounter Details Date Type Department Care Team Description 07/23/2017 Office Visit Hematology/Oncology Lopez Billings, Ashlyn aldana malignant neoplasm of right lower lobe of lung; at [facility] Hypothyroidism due to drugs [facility] [address] [place] [address] [address], [place] [address] [phone] Social History Tobacco Use Types Packs/Day Years [...] Sign Reading Time Taken Comments Blood Pressure 118/49 07/23/2017 1:46 PM EDT Pulse 84 07/23/2017 1:46 PM EDT Temperature 37 ??C (98.6 ??F) 07/23/2017 1:46 PM EDT Respiratory Rate 16 07/23/2017 1:46 PM EDT Oxygen Saturation 98% 07/23/2017 1:46 PM EDT Inhaled Oxygen Concentration - - Weight 55.1 kg (121 lb 6.4 oz) 07/23/2017 1:46 PM EDT Height 164.8 cm (5' 4.88) 07/23/2017 1:46 PM EDT damari mendez Body Mass Index 20.28 07/23/2017 1:46 PM EDT documented in this encounter Progress Notes Lopez Billings MD - 07/23/2017 2:00 PM EDT Images from the original note were not included. 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 Subjective: Erinn comes in today for follow-up. She is successfully gotten down off the prednisone to the dose of 5 mg daily and we discussed going to every other day at this point. She has not had a return of her severe diarrhea but does have some irritable bowel syndrome type bowel movements on occasion. Sheis continued to put weight on. She is starting to have occasional right sided chest pain with deep breath that sharp in character. Tylenol does not help that much. She can take ibuprofen and we discussed possibly using that in case it is pleurisy. She has gotten out of the house some and is going to be getting some counseling to see if that can be improved even further. Otherwise the review of systems is quite negative. She remains optimistic. Past medical history and social history are reviewed and unchanged from when I saw her a month ago. She did not get the CT scan of the chest ordered so we will try that again. Past Medical History: Diagnosis Date ??? GERD [...] 4.71) performed by Tunde Wang MD at [facility] MAIN OR ??? PRO COLONOSCOPY, BIOPSY N/A 12/21/2014 COLONOSCOPY FLEXIBLE, WITH BX performed by Joaquin Freeman MD at [facility] ENDOSCOPY ??? PRO UPPER GI ENDOSCOPY, DIAGNOSTIC N/A 10/19/2016 ENDOSCOPY, UPPER GI, DIAGNOSTIC, WITH OR WITHOUT SPECIMENS performed by Tunde Wang MD at [facility] MAIN OR ??? MARCO AND BSO 1989 [...] by mouth daily. 90 tablet 3 ??? loperamide (IMODIUM) 2 mg Capsule Take 1 capsule by mouth 4 times daily as needed for Diarrhea. (Patient not taking: Reported on 06/18/2017) 30 tablet 0 ??? atenolol (TENORMIN) 50 mg Tablet Take 1 tablet by mouth 2 times daily. 90 tablet 3 ??? diaZEPam (VALIUM) 5 [...] taking: Reportedon 06/18/2017) 7 tablet 0 ??? folic acid (FOLVITE) 1 mg Tablet Take 1 tablet by mouth daily. 90 tablet 3 ??? prochlorperazine (COMPAZINE) 10 mg Tablet Take 1 tablet by mouth every 6 hours as needed for Nausea. (Patient not taking: Reported on 06/18/2017) 30 tablet 1 ??? acetaminophen (TYLENOL) 500 mg Tablet Take 2 tablets by mouth every 6 hours as needed for Pain. ??? buPROPion (WELLBUTRIN XL) 300 mg Tablet Extended Release 24 hr take 1 tablet by mouth once daily0 ??? EPINEPHrine 0.3 mg/0.3 mL Auto-Injector Reported on 10/09/2016 0 ??? clonazePAM (KLONOPIN) 1 mg Tablet No current facility-administered medications on [...] supraclavicular, and axillary nodes normal Neurologic: Normal ?Non-Pot Maker Final DIAGNOSIS Positive for Malignancy Electronically signed by: ??Alina LUNA, Herbert Johnson Verified: ??10/21/2016 ?Cytopathologist DISCUSSION Lymph node: level 7 (EBUS-guided FNA) - Compatible with adenocarcinoma. The tumor cells resemble those present in the concurrent level 10L lymph node FNA. ? Molecular Genetics RESULTS Please refer to Cytopathology Report [id number] for final pathology diagnosis. INDICATION FOR STUDY: ?? Lymph node, level 7 (EBUS-guided FNA) - Compatible with ??adenocarcinoma SPECIMEN ANALYZED: ?? 0072 A1 Analysis: ??Examination of DNA extracted from formalin-fixed paraffin-embedded tumor ??tissue for somatic mutation analysis. Results: ??The following gene variants were identified in the submitted tissue: CLINICALLY ACTIONABLE VARIANTS: BRAF: ??NEGATIVE EGFR: ??NEGATIVE KRAS: ??MUTATION c.34G> T p.G12C Exon 2 PIK3CA: ??NEGATIVE OTHER DETECTED VARIANTS: N/A Interpretation: ?? After review of the pathology report and slides, the specimen ??(-2539 A1) was selected for mutation analysis from [...] ?? TECHNIQUE: Procedure: Following IV injection of 14-ajdflj-9-deoxyglucose (FDG) a standard uptake of approximately 60 [...] (ALIMTA) IV 500 mg/m2/dose = 760 mg [facility] ONCOLOGY (AMB) 12/12/2016 Day, Cycle Day 1, Cycle 2 CARBOplatin (PARAPLATIN) IV 376 mg cyanocobalamin (vitamin B-12) SubQ pembrolizumab (KEYTRUDA) IV 200 mg PEMEtrexed (ALIMTA) IV 500 mg/m2/dose = 760 [facility] 01/02/2017 Day, Cycle Day 1, Cycle 3 CARBOplatin (PARAPLATIN) IV 384 mg cyanocobalamin (vitamin B-12) SubQ pembrolizumab (KEYTRUDA) IV 200 mg PEMEtrexed (ALIMTA) IV 500 mg/m2/dose = 760 mg [facility] ONCOLOGY (AMB) 01/23/2017 Day, Cycle Day 1, Cycle 4 CARBOplatin (PARAPLATIN) IV 342 mg cyanocobalamin (vitamin B-12) SubQ 1,000 mcg pembrolizumab (KEYTRUDA) IV 200 mg PEMEtrexed (ALIMTA) IV 500 mg/m2/dose = 760 mg Assessment/plan: Erinn has successfully gotten down to 5 mg of prednisone a day without return of her diarrhea. Atthis point we will go to every other day treatment. She is encouraged to get out of the house some and to walk a bit more. She could have some proximal muscle weakness related to her steroids but now that she is on a very low dose that should not continue to be an ongoing problem. It would be nice to know if her tumor is still under control and she is agreeable to getting a CT scan. She is having some problems with them using the port so we will schedule a peripheral draw prior to his CT scan and also include some thyroid tests to make sure that that is not going to be a late effect problem for hernow that she is off the Pembrolizumab. I suggested a trial of an occasional Aleve for her chest discomfort. That is the only thing that could point to a possible resurgence or progression of tumor but otherwise things are most consistent with a very good response to the checkpoint inhibitor. We will see her back in a month with a port flush CBC CMP thyroid studies and a CT scan with contrast of the chest. She will call if any questions or issues develop in the interim. documented in this encounter Plan of Treatment Upcoming Encounters Date Type Specialty Care Team Description 11/28/2021 Hospital Encounter Radiology Harlan Parmar MD [facility] DR HEMATOLOGY/ONCOLOGY DEPT. [place], [place] [address] (Wo rk) 11/28/2021 Appointment Radiology Harlan Parmar M D [facility] DR HEMATOLOGY/ONCOLOGY DEPT. [place], [place] [address] (Wo rk) 12/01/2021 Office Visit Hematology and Oncology Harlan Parmar MD [facility] DR HEMATOLOGY/ONCOLOGY DEPT. [place], [place] [address] (Wo rk) documented as of this encounter Procedures Procedure Name Priority Date/Time Associated Diagnosis Comme nts LAB SCAN 07/23/2017 12:00 AM Results for this EDT procedure are i n the results section . LAB SCAN 07/17/2017 12:00 AM Results for this EDT procedure are i n the results section . documented in this encounter Results SCAN DOC: LAB (07/23/2017 12:00 AM EDT) Narrative 07/23/2017 12:00 AM EDT This result has an attachment that is no t available. Ordered by an unspecified provider. Scanning Provider MEDIA MGR SCAN EXT ORDR/RSLT SCAN DOC: LAB (07/17/2017 12:00 AM EDT) Narrative 07/17/2017 12:00 AM EDT This result has an attachment that is no t available. Ordered by an unspecified provider. 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
--- OUTSIDE RECORDS SUMMARY | 2021-11-25 00:29 | XMS_ITS | Encounter Summary ---
:1950 Author Organization [facility] [place] [address] Care Team Providers Name Role Phone Yadira Nunez DO Primary Care Provider Reason for Visit Diagnostic Test (Routine) - Closed Specialty Diagnoses / Procedures Referred By Contact Refer red To Contact Radiology Diagnoses Primary malignant neoplasm of right lower lobe of lung Harlan Parmar MD [facility] Rad Nuclear Med Procedures NM PET CT Skull Base to Mid-thigh [facility] HEMATOLOGY/[place] [address] [place] [address] Referral ID Status Reason Start Date Expiration Date Visits V isits Requested Authorized [id number] Closed Specialty 08/21/2019 02/20/2021 1 1 Service Requested Encounter Details Date Type Department Care Team Description 08/29/2019 Hospital Encounter Nuclear Medicine at [facility] Parmar Canceled Peg Brock MD (P-INCONVENIENT DATE [facility] ONE MEDICAL OR TIME) [facility] [address] [place] HEMATOLOGY/ONCOL [address] [facility] DEPT. [phone] [place] [address] Social History Tobacco Use Types [...] daily. Take magnesium) Tablet one PO daily. albuterol 90 mcg/actuation Inhale 2 puffs [...] 1 mg 0.5 mg. 0 6 Tablet levothyroxine (Synthroid) Take 50 mcg by 0 201910/31/2019 50 mcg Tablet mouth daily. documented as of this encounter Plan of Treatment Upcoming Encounters Date Type Specialty Care Team Description 11/28/2021 Hospital Encounter Radiology Harlan Parmar MD [facility] HEMATOLOGY/ONCOLOGY DEPT. [place], [place] [address] (Wo rk) 11/28/2021 Appointment Radiology Harlan Parmar M D [facility] HEMATOLOGY/ONCOLOGY DEPT. [place], [place] [address] (Wo rk) 12/01/2021 Office Visit Hematology and Oncology Harlan Parmar MD [facility] DR HEMATOLOGY/ONCOLOGY DEPT. [place], [place] [address] (Wo rk) documented as of this encounter Procedures Procedure Name Priority Date/Time Associated Diagnosis Comme nts NM PET CT SKULL Routine 09/03/2019 10:54 AM Primary malignant Results for this BASE TO MID-THIGH EDT neoplasm of right proce dure are in (LCSR) lower lobe of lung the resul ts section. documented in this encounter Results NM PET CT Skull Base to Mid-thigh (09/03/2019 10:54 AM EDT) Anatomical Region Laterality Modality Positron Emission To mography (PET) Specimen (Source) Anatomical Location Collection Method / Collectio n Time Received Time / Laterality Volume Impressions 09/03/2019 2:25 PM EDT 1. ??Multiple FDG avid semisolid or groundglass nodules in both lungs, one of which has nearly resolved while the othe rs are unchanged in size and stable to slightly decreased in activity compared to prior PET/CT of 10/24/2018. 2. ??No new sites of suspected active ma lignancy or metastasis. Thank you for letting us participate in the care of this patient. For questions regarding this report, please contact e number below. ? Narrative 09/03/2019 2:25 PM EDT EXAMINATION: NM PET CT SKULL BASE TO MID-THIGH ? CLINICAL HISTORY: Non-small cell lung ca ncer, metastatic, assess treatment response TECHNIQUE: Following IV injection of 18- pletby-0-ngdsgksyhxtj (FDG) a standard uptake of approximately 60 minutes, a no ncontrast CT scan followed by a PET scan were acquired from the base of the skull to mid thighs. The noncontrast CT was used for anatomic localization and photo n attenuation correction of the PET scan. Blood glucose level: 116 (mg/dL) FDG dose: 8.3 mCi Reference liver mean SUV is 1.8 on the c urrent study compared to 2.1 on the prior exam of 10/24/2018. COMPARISON: PET/CT 10/24/2018 FINDINGS: HEAD/NECK: Persistent small mildly FDG avid nodule in the right lobe of the thyroid, decreased in intensity compared to prior and which likely represents a benign thyroid neoplasm. Normal activity in all other soft tissue regions of the neck and visualized lower head. No adenopathy . CHEST: Again seen multiple FDG avid semisolid o r groundglass nodules in both lungs, right upper lobe predominant. One of the previously seen FDG avid righ t upper lobe nodules has nearly completely resolved (axial image 50) whi le all of the other nodules are not significantly changed in size and stable to slightly decreased in metabolic activity. Largest wholesale representative FDG iban d groundglass nodule in the right upper lobe (axial image 61) measures a stable 9 mm with SUV max of 5.8 on the current study compared to 7.9 on the prior exam. No new pulmonary nodules and no signific ant adenopathy.Coronary and aortic calcifications again noted. ABDOMEN/PELVIS: Normal activity in all soft tissue regio ns. No significant adenopathy. SKELETON/EXTREMITIES: Normal activity in all regions of the ax ial and visualized appendicular skeleton. Procedure Note Harlan Veloz MD - 09/03/2019Formatti ng of this note might be different from the original. EXAMINATION: NM PET CT SKULL BASE TO MID -THIGH CLINICAL HISTORY: Non-small cell lung ca ncer, metastatic, assess treatment response TECHNIQUE: Following IV injection of 18- kaxrvq-8-yaavmnahmbkh (FDG) a standard uptake of approximately 60 minutes, a no ncontrast CT scan followed by a PET scan were acquired from the base of the skull to mid thighs. The noncontrast CT was used for anatomic localization and photo n attenuation correction of the PET scan. Blood glucose level: 116 (mg/dL) FDG dose: 8.3 mCi Reference liver mean SUV is 1.8 on the c urrent study compared to 2.1 on the prior exam of 10/24/2018. COMPARISON: PET/CT 10/24/2018 FINDINGS: HEAD/NECK: Persistent small mildly FDG avid nodule in the right lobe of the thyroid, decreased in intensity compared to prior and which likely represents a benign thyroid neoplasm. Normal activity in all other soft tissue regions of the neck and visualized lower head. No adenopathy . CHEST: Again seen multiple FDG avid semisolid o r groundglass nodules in both lungs, right upper lobe predominant. One of the previously seen FDG avid righ t upper lobe nodules has nearly completely resolved (axial image 50) whi le all of the other nodules are not significantly changed in size and stable to slightly decreased in metabolic activity. Largest wholesale representative FDG iban d groundglass nodule in the right upper lobe (axial image 61) measures a stable 9 mm with SUV max of 5.8 on the current study compared to 7.9 on the prior exam. No new pulmonary nodules and no signific ant adenopathy.Coronary and aortic calcifications again noted. ABDOMEN/PELVIS: Normal activity in all soft tissue regio ns. No significant adenopathy. SKELETON/EXTREMITIES: Normal activity in all regions of the ax ial and visualized appendicular skeleton. IMPRESSION 1. Multiple FDG avid semisolid or ground glass nodules in both lungs, one of which has nearly resolved while the othe rs are unchanged in size and stable to slightly decreased in activity compared to prior PET/CT of 10/24/2018. 2. No new sites of suspected active veronika gnancy or metastasis. Thank you for letting us participate in the care of this patient. For questions regarding this report, please contact e number below. Harlan Parmar MD IMG PET ORDERABLES documented in this encounter Visit Diagnoses Not on filedocumented in this encounter Care Teams Arc Welder Apprentice Relationship Specialty Start Date End Date Yadira Nunez DO PCP - General Family Medicine 08/27/[address] [place] [address] documented as of this encounter
--- OUTSIDE RECORDS SUMMARY | 2021-11-25 00:29 | XMS_ITS | Encounter Summary ---
:1950 Author Organization [facility] [place] [address] Care Team Providers Name Role Phone Yadira Nunez DO Primary Care Provider Reason for Referral Diagnostic Test (Routine) - Closed Specialty Diagnoses / Procedures Referred By Contact Refer red To Contact Radiology Diagnoses Primary malignant neoplasm of right lower lobe of lung Harlan Parmar MD [facility] Rad Nuclear Med Procedures NM PET CT Skull Base to Mid-thigh [facility] HEMATOLOGY/[place] [address] [place] [address] Referral ID Status Reason Start Date Expiration Date Visits V isits Requested Authorized [id number] Closed Specialty 08/21/2019 02/20/2021 1 1 Service Requested Reason for Visit Diagnostic Test (Routine) - Closed Specialty Diagnoses / Procedures Referred By Contact Refer red To Contact Radiology Diagnoses Primary malignant neoplasm of right lower lobe of lung Harlan Parmar MD [facility] Rad Nuclear Med Procedures NM PET CT Skull Base to Mid-thigh [facility] HEMATOLOGY/[place] [address] [place] [address] Referral ID Status Reason Start Date Expiration Date Visits V isits Requested Authorized [id number] Closed Specialty 08/21/2019 02/20/2021 1 1 Service Requested Encounter Details Date Type Department Care Team Description 09/03/2019 Hospital Encounter Nuclear Medicine at [place], [facility], Primary malignant Peg Brock MD neoplasm of right [facility] lower lob e of lung [address] [place] HEMATOLOGY/ON[place] [address] [facility] DEPT. [phone] [place] [address] Social History Tobacco Use Types Packs/Day Years [...] 11/28/2021 Hospital Encounter Radiology Harlan Parmar MD [facility] DR HEMATOLOGY/ONCOLOGY DEPT. [place], [place] [address] (Wo rk) 11/28/2021 Appointment Radiology Harlan Parmar M D [facility] DR HEMATOLOGY/ONCOLOGY DEPT. [place], [place] [address] (Wo rk) 12/01/2021 Office Visit Hematology and Oncology Harlan Parmar MD [facility] DR HEMATOLOGY/ONCOLOGY DEPT. [place], [place] [address] (Wo rk) documented as of this encounter Procedures Procedure Name Priority Date/Time Associated Diagnosis Comme nts NM PET CT SKULL Routine 09/03/2019 10:54 AM Primary malignant Results for this BASE TO MID-THIGH EDT neoplasm of right proce dure are in (LCSR) lower lobe of lung the resul ts section. POCT GLUCOSE Routine 09/03/2019 9:31 AM Results f or this EDT procedure are i n the results section. documented in this encounter Results NM [...] response TECHNIQUE: Following IV injection of 18- duvlqb-6-fddovtssvdtn (FDG) a standard uptake of approximately 60 [...] to slightly decreased in metabolic activity. Largest career services representative FDG iban d groundglass nodule in [...] response TECHNIQUE: Following IV injection of 18- bgtzup-0-frrzhbwssdft (FDG) a standard uptake of approximately 60 [...] to slightly decreased in metabolic activity. Largest career services representative FDG iban d groundglass nodule in [...] below. Harlan Parmar MD IMG PET ORDERABLES POCT Glucose (09/03/2019 9:31 AM EDT) athologist Signature POC Glucose 116 65 - 199 [facility] mg/dL [facility] Comment: Supplemental ranges: <140 mg/dL before meals <180 mg/dL all other times of the day Specimen Anatomical Collection Method Collection Time Receive d Time (Source) Location / / Volume Laterality Blood specimen 09/03/2019 9:31 AM 020 9:31 (specimen) EDT AM EDT Harlan Parmar MD POINT OF CARE TEST ORDERABLE S Performing Organization Address City/State/[place] [address] documented in this encounter Visit Diagnoses Diagnosis Primary malignant neoplasm of right lowe r lobe of lung Malignant neoplasm of lower lobe, bronch us, or lung documented in this encounter Care Teams Supervisor Grove Relationship Specialty Start Date End Date Yadira Nunez DO PCP - General Family Medicine 08/27/[address] [place] [address] documented as of this encounter
--- OUTSIDE RECORDS SUMMARY | 2021-11-25 00:29 | XMS_ITS | Encounter Summary ---
:1950 Author Organization [facility] [place] [address] Care Team Providers Name Role Phone Yadira Nunez DO Primary Care Provider Reason for Visit Diagnostic Test (Routine) - Closed Specialty Diagnoses / Procedures Referred By Contact Refer red To Contact Radiology Diagnoses Primary malignant neoplasm of right lower lobe of lung Harlan Parmar MD [facility] Rad Nuclear Med Procedures NM PET CT Skull Base to Mid-thigh [facility] HEMATOLOGY/[place] [address] [place] [address] Referral ID Status Reason Start Date Expiration Date Visits V isits Requested Authorized [id number] Closed Specialty 08/21/2019 02/20/2021 1 1 Service Requested Encounter Details Date Type Department Care Team Description 09/03/2019 Hospital Encounter Nuclear Medicine at [facility] Parmar MD [facility] HEMATOLOGY/[place] [address] DEPT. [phone] [place], [place] [address] (Wo rk) Social History Tobacco [...] Encounter Radiology Harlan Parmar MD [facility] HEMATOLOGY/ONCOLOGY DEPT. [place], [place] [address] (Wo rk) 11/28/2021 Appointment Radiology Harlan Parmar M D [facility] DR HEMATOLOGY/ONCOLOGY DEPT. [place], [place] [address] (Wo rk) 12/01/2021 Office Visit Hematology and Oncology Harlan Parmar MD [facility] DR HEMATOLOGY/ONCOLOGY DEPT. [place], [place] [address] (Wo rk) documented as of this encounter Procedures Procedure Name Priority Date/Time Associated Diagnosis Comme nts NM PET CT SKULL Routine 09/03/2019 10:54 AM Primary malignant Results for this BASE TO MID-THIGH EDT neoplasm of right proce dure are in (LCSR) lower lobe of lung the resul ts section. documented in this encounter Visit Diagnoses Not on filedocumented in this encounter Administered Medications Inactive Administered Medications - up to 3 most recent administrations Medication Order MAR Action Action Date Dose Rate Site fludeoxyglucose (F-18) FDG Given 09/03/2019 9:43 AM EDT 8.3 mCi injection 8.3 mCi 8.3 mCi, Intravenous, ONCE PRN, 1 dose, Starting on Sun09/03/19 at 0943, Until Sun09/03/19 at 0943, Per Protocol, IV: R-ACF, Routine documented in this encounter Care Teams Multi Operation Machine Operator Relationship Specialty Start Date End Date Yadira Nunez DO PCP - General Family Medicine 08/27/[address] [place] [place] [address] documented as of this encounter
--- OUTSIDE RECORDS SUMMARY | 2021-11-25 00:29 | XMS_ITS | Encounter Summary ---
:1950 Author Organization [facility] [place] [address] Care Team Providers Name Role Phone Fernanda Evans APRN Primary Care Provider Encounter Details Date Type Department Care Team Description 06/06/2019 Telephone Hematology/Oncology at [facility] [address] [phone] Social History Tobacco Use [...] 11/28/2021 Hospital Encounter Radiology Harlan Parmar MD [facility] DR HEMATOLOGY/ONCOLOGY DEPT. [place], [place] [address] (Kai fermin) 11/28/2021 Appointment Radiology Harlan Parmar M D [facility] DR HEMATOLOGY/ONCOLOGY DEPT. [place], [place] [address] (Kai fermin) 12/01/2021 Office Visit Hematology and Oncology Harlan Parmar MD [facility] HEMATOLOGY/ONCOLOGY DEPT. [place], [place] [address] (Kai fermin) documented as of this encounter Visit Diagnoses Not on filedocumented in this encounter Care Teams Industrial Safety And Health Specialist Relationship Specialty Start Date End Date Fernanda Evans APRN PCP - General Family Medicine 08/14/16 08/26/[address] [place] [address] [place] [address] documented as of this encounter
--- OUTSIDE RECORDS SUMMARY | 2021-11-25 00:29 | XMS_ITS | Encounter Summary ---
:1950 Author Organization [facility] [place] [address] Care Team Providers Name Role Phone Fernanda Evans APRN Primary Care Provider Reason for Visit Reason Comments Lung Cancer Encounter Details Date Type Department Care Team Description 05/15/2017 Office Visit Hematology/Oncology Lopez Billings, Ashlyn aldana malignant at [facility] MD neoplasm of right [address] [place] [address] [phone] (Wo rk) Social History Tobacco Use Types [...] Sign Reading Time Taken Comments Blood Pressure 123/56 05/15/2017 10:29 AM EST Pulse 63 05/15/2017 10:29 AM EST Temperature 36.6 ??C (97.9 ??F) 05/15/2017 10:29 AM EST Respiratory Rate 18 05/15/2017 10:29 AM EST Oxygen Saturation 98% 05/15/2017 10:29 AM EST Inhaled Oxygen Concentration - - Weight 53.5 kg (118 lb) 05/15/2017 10:29 AM EST Height 164.8 cm (5' 4.88) 05/15/2017 10:29 AM EST copi ed Body Mass Index 19.71 05/15/2017 10:29 AM EST documented in this encounter Progress Notes Lopez Billings MD - 05/15/2017 10:30 AM EST Images from the original note were not included. 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 Subjective: Erinn comes in today for follow-up. She has had some problems because of the weather coming in for appointments but we were able to get her in today. She called the office last week in regards to a return of her severe diarrhea and we went ahead and started her again on prednisone 40 mg daily. Additionally she been having some problems with near syncope episodes with standing and she tells me her primary care doctor switched her from atenolol to metoprolol. With the change unfortunately she is having a lot of tachyarrhythmias. The prednisone however did stop her diarrhea almost immediately and today we are trying to chart away forward from here. Additional problems are a fair amount of anxiety p erhaps related to the steroids although a long-standing problem for her as well. She notes she is having some problems getting out in public because of it. She has a bit more anxiety. She has also beenhaving some problems now with constipation and has a long-standing history of irritable bowel syndrome which she in talking to her today does think she can distinguish from the autoimmune diarrhea thatshe was having. Finally she is noticing some cushingoid changes in her face and also some weakness in her thigh muscles and upper arm muscles. Past Medical History: Diagnosis Date ??? GERD (gastroesophageal reflux disease) ??? IBS (irritable bowel syndrome) ??? Lung cancer, primary, with metastasis from lung to other site ??? Multiple sclerosis ??? SVT (supraventricular tachycardia) Past Surgical History: Procedure Laterality Date ??? APPENDECTOMY 2007 ??? INGUINAL HERNIA REPAIR 1994 ??? PRO [facility] EBUS GUIDED SAMPL 1/2 NODE STATION/STRUX N/A 10/19/2016 BRONCH, W ENDOBRONCHIAL ULTRASOUND (EBUS) GUIDED SAMPLING, 1/2 NODES (WRVU 4.71) performed by Tunde Wang MD at [facility] MAIN OR ??? PRO COLONOSCOPY, BIOPSY N/A 12/21/2014 COLONOSCOPY FLEXIBLE, WITH BX performed by Joaquin Freeman MD at [facility] ENDOSCOPY ??? PRO UPPER GI ENDOSCOPY, DIAGNOSTIC N/A 10/19/2016 ENDOSCOPY, UPPER GI, DIAGNOSTIC, WITH OR WITHOUT SPECIMENS performed by Tunde Wang MD at [facility] MAIN OR ??? MARCO AND BSO [...] Medication Sig Dispense Refill ??? predniSONE (DELTASONE) 20 mg Tablet Take 2 tablets by mouth daily (after breakfast). Take with food in the morning 60 tablet 0 ??? meTOPROLOL succinate (TOPROL-XL) 100 mg Tablet Sustained Release 24 hr Take 100 mg by mouth daily. ??? diaZEPam (VALIUM) 5 mg Tablet Take [...] supraclavicular, and axillary nodes normal Neurologic: Normal ?Non-Family Medicine Physician Final DIAGNOSIS Positive for Malignancy Electronically signed by: ??Alina LUNA, Herbert Johnson Verified: ??10/21/2016 ?Cytopathologist DISCUSSION Lymph node: level 7 (EBUS-guided FNA) - Compatible with adenocarcinoma. The tumor cells resemble those present in the concurrent level 10L lymph node FNA. ? Molecular Genetics RESULTS Please refer to Cytopathology Report [id number] for final pathology diagnosis. INDICATION FOR STUDY: ?? Lymph node, level 7 (EBUS-guided FNA) - Compatible with ??adenocarcinoma SPECIMEN ANALYZED: ?? -[id number] Analysis: ??Examination of DNA extracted from formalin-fixed paraffin-embedded tumor ??tissue for somatic mutation analysis. Results: ??The following gene variants were identified in the submitted tissue: CLINICALLY ACTIONABLE VARIANTS: BRAF: ??NEGATIVE EGFR: ??NEGATIVE KRAS: ??MUTATION c.34G> T p.G12C Exon 2 PIK3CA: ??NEGATIVE OTHER DETECTED VARIANTS: N/A Interpretation: ?? After review of the pathology report and slides, the specimen ??(-[id number] [id number]) was selected for mutation analysis from [...] ?? TECHNIQUE: Procedure: Following IV injection of 25-sscqia-7-deoxyglucose (FDG) a standard uptake of approximately 60 [...] (ALIMTA) IV 500 mg/m2/dose = 760 [facility] 12/12/2016 Day, Cycle Day 1, Cycle 2 CARBOplatin (PARAPLATIN) IV 376 mg cyanocobalamin (vitamin B-12) SubQ pembrolizumab (KEYTRUDA) IV 200 mg PEMEtrexed (ALIMTA) IV 500 mg/m2/dose = 760 mg [facility]) 01/02/2017 Day, Cycle Day 1, Cycle 3 CARBOplatin (PARAPLATIN) IV 384 mg cyanocobalamin (vitamin B-12) SubQ pembrolizumab (KEYTRUDA) IV 200 mg PEMEtrexed (ALIMTA) IV 500 mg/m2/dose = 760 mg [facility]) 01/23/2017 Day, Cycle Day 1, Cycle 4 CARBOplatin (PARAPLATIN) IV 342 mg cyanocobalamin (vitamin B-12) SubQ 1,000 mcg pembrolizumab (KEYTRUDA) IV 200 mg PEMEtrexed (ALIMTA) IV 500 mg/m2/dose = 760 mg Review of her laboratory today shows a white count of 14.6 hemoglobin 12.3 hematocrit 38.4 platelet count of 271 CMP shows normal electrolytes on happy to say her glucose is 100 liver tests are normal ALP 73 albumin 3.2 Assessment/plan: Clinically Erinn is definitely 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 She is very difficult to manage historically as she has many symptoms that may be relatedto problem she had prior to her lung cancer and checkpoint inhibitor. Nonetheless I think many of her symptoms and problems are related to the ongoing steroids and we really need to try to get her tapered off of them and if that is not successful in controlling her colitis other modalities besides steroids will need to be considered. A lot of her nervousness and jitteriness along with near syncope isprobably related more to tapering the steroids than anything. On the other hand she is showing many of this well-known side effects of higher dose steroids including central proximal muscle weakness, cushingoid features, some tendency towards orthostasis as we taper her off the steroids, and anxiety symptoms. At the current time I would like to try and focus on getting her off the steroids and not changed too much in her medical management. Clearly the change for her from atenolol to metoprolol is resulted in a lot more tachycardia and possible tachyarrhythmias again although she was on a fairly high dose of atenolol. We will go ahead and switch her back to 50 mg twice daily of atenolol which is aslightly lower dose and stop her metoprolol. I would like not to change any of her antianxiety medicines and is instead focus a bit on some behavioral modifications and see if I can get her out of the house more. Also told her it is very important for her to come in to follow-up so that I can continueto taper her off the steroids on a regular schedule. If she gets another exacerbation of her colitisthat is different from her usual irritable bowel problems would consider a course of budesonide which is a steroid it has more GI activity than systemic activity. We will see her back in 2 weeks time. She has been instructed to drop her prednisone dose to 30 mg a day for 1 week and 20 mg a day for 1 week. She of course will call if severe diarrhea recurs it is different from her usual underlying irritable bowel problems. documented in this encounter Plan of Treatment Upcoming Encounters Date Type Specialty Care Team Description 11/28/2021 Hospital Encounter Radiology Harlan Parmar MD [facility] DR HEMATOLOGY/ONCOLOGY DEPT. [place], [place] [address] (Kai fermin) 11/28/2021 Appointment Radiology Harlan Parmar M D [facility] HEMATOLOGY/ONCOLOGY DEPT. [place], [place] [address] (Kai fermin) 12/01/2021 Office Visit Hematology and Oncology Harlan Parmar MD [facility] HEMATOLOGY/ONCOLOGY DEPT. [place], [place] [address] (Kai fermin) documented as of this encounter Procedures Procedure Name Priority Date/Time Associated Diagnosis Comme nts LAB SCAN 05/15/2017 12:00 AM Results for this EST procedure are i n the results section . documented in this encounter Results SCAN DOC: LAB (05/15/2017 12:00 AM EST) Narrative 05/15/2017 12:00 AM EST This result has an attachment that is no t available. Ordered by an unspecified provider. Scanning Provider MEDIA MGR SCAN EXT ORDR/RSLT documented in this encounter Visit Diagnoses Diagnosis Primary malignant neoplasm of right lowe r lobe of lung Malignant neoplasm of lower lobe, bronch us, or lung documented in this encounter Care Teams Ammunition And Explosives Handler Relationship Specialty Start Date End Date Fernanda Evans APRN PCP - General Family Medicine 08/14/16 08/26/[address] [place] [address] documented as of this encounter
--- OUTSIDE RECORDS SUMMARY | 2021-11-25 00:29 | XMS_ITS | Encounter Summary ---
:1950 Author Organization [place] [address] Care Team Providers Name Role Phone Fernanda Evans ROBLES Primary Care Provider Encounter Details Date Type Department Care Team Description 08/05/2019 Orders Only Hematology and Harlan Parmar M D Primary malignant neoplasm of right lowe r lobe of lung; Oncology at [facility] Hypothyroidism due to drugs [facility] [address] HEMATOLOGY/ONCOLO [place]PT. [address] [place] [address] [phone] Social History Tobacco Use Types Packs/Day Years [...] Encounter Radiology Harlan Parmar MD [facility] HEMATOLOGY/ONCOLOGY DEPT. [place], [place] [address] (Wo rk) 11/28/2021 Appointment Radiology Harlan Parmar M D [facility] HEMATOLOGY/ONCOLOGY DEPT. [place], [place] [address] (Kai fermin) 12/01/2021 Office Visit Hematology and Oncology Harlan Parmar MD [facility] DR HEMATOLOGY/ONCOLOGY DEPT. 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
--- OUTSIDE RECORDS SUMMARY | 2021-11-25 00:29 | XMS_ITS | Encounter Summary ---
:1950 Author Organization [facility] [place] [address] Care Team Providers Name Role Phone Fernanda Evans BIOMETRICS INSTRUCTOR Primary Care Provider Encounter Details Date Type Department Care Team Description 01/25/2018 Office Visit Hematology/Oncology Tomasa Conner, Prim sanjeev malignant at [facility] BIOMETRICS INSTRUCTOR neoplasm of right [address] [place] [address] [place] [address] RADIATION ONCOLOGY [phone] [place] [address] Social History Tobacco Use Types Packs/Day Years [...] Sign Reading Time Taken Comments Blood Pressure 113/56 01/25/2018 3:12 PM EDT Pulse 64 01/25/2018 3:12 PM EDT Temperature 36.8 ??C (98.2 ??F) 01/25/2018 3:12 PM EDT Respiratory Rate 18 01/25/2018 3:12 PM EDT Oxygen Saturation 98% 01/25/2018 3:12 PM EDT Inhaled Oxygen Concentration - - Weight 55.8 kg (123 lb) 01/25/2018 3:12 PM EDT Height 164.8 cm (5' 4.88) 01/25/2018 3:12 PM EDT Body Mass Index 20.54 01/25/2018 3:12 PM EDT documented in this encounter Patient Instructions Patient InstructionsUbaldoTomasa APRN - 01/25/2018 3:00 PM EDT She will need a ct scan of the chest in the next week and to see me after the scan documented in this encounter Progress Notes Tomasa Conner APRN - 01/25/2018 3:00 PM EDT Images from the original note were not included. 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 Subjective: Erinn comes in today for follow-up. She is no longer taking the prednisone.. She does have irritable bowel syndrome and the symptoms she has are more consistent with that. She does note some occasional chest pain with deep breath or twisting. She denies any cough. She has no hemoptysis no other problems. She She is getting her port flushed on a monthly basis and it is now functional. She has continued to put on a bit of weight. She was seen recently locally because of her mental health issues. Her anxiety/depression are major issues for her and she has spent most of the last 3 months in the house because of them. They have recently made a change in her medication. Hopefully this will help her. Past medical history and social history are [...] Procedure Laterality Date ??? APPENDECTOMY 2007 ??? BRONCH, W ENDOBRONCHIAL ULTRASOUND (EBUS) GUIDED SAMPLING, 1/2 NODES (WRVU 4.71) N/A 10/19/2016 Performed by Tunde Wang MD at [facility] MAIN OR ??? COLONOSCOPY FLEXIBLE, WITH BX (WRVU 3.66) N/A 12/21/2014 Performed by Joaquin Freeman MD at [facility] ENDOSCOPY ??? ENDOSCOPY, UPPER GI, DIAGNOSTIC, WITH OR WITHOUT SPECIMENS N/A 10/19/2016 Performed by Tunde Wang MD at [facility] MAIN OR ??? INGUINAL HERNIA REPAIR 1994 ??? PRO [facility] EBUS GUIDED SAMPL 1/2 NODE STATION/STRUX N/A 10/19/2016 BRONCH, W ENDOBRONCHIAL ULTRASOUND (EBUS) GUIDED SAMPLING, 1/2 NODES (WRVU 4.71) performed by Tunde Wang MD at [facility] MAIN OR ??? PRO COLONOSCOPY, BIOPSY N/A 12/21/2014 COLONOSCOPY FLEXIBLE, WITH BX performed by Joaquin Freeman MD at [facility] ENDOSCOPY ??? PRO UPPER GI ENDOSCOPY, DIAGNOSTIC N/A 10/19/2016 ENDOSCOPY, UPPER GI, DIAGNOSTIC, WITH OR WITHOUT SPECIMENS performed by Tunde Wang MD at [facility] MAIN OR ??? MARCO AND BSO [...] to Visit Medication Sig Dispense Refill ??? loperamide (IMODIUM) 2 mg Capsule Take 1 capsule by mouth 4 times daily as needed for Diarrhea. 30 tablet 0 ??? atenolol (TENORMIN) 50 mg Tablet Take 1 tablet by mouth 2 times daily. (Patient taking differently: Take 50 mg by mouth 2 times daily. 1 tab am, 1.5 tabs pm Indications: Paroxysmal SupraventricularTachycardia) 90 tablet 3 ??? folic acid (FOLVITE) 1 mg Tablet Take 1 tablet by mouth daily. 90 tablet 3 ??? buPROPion (WELLBUTRIN XL) 300 mg Tablet Extended Release 24 hr take 3 tablet by mouth once daily0 ??? clonazePAM (KLONOPIN) 1 mg Tablet ??? escitalopram oxalate (LEXAPRO) 5 mg Tablet Take 5 mg by mouth daily. 0 ??? predniSONE (DELTASONE) 5 mg Tablet Take 1 tablet by mouth daily. (Patient not taking: Reported on 01/25/2018) 90 tablet 3 ??? diaZEPam (VALIUM) 5 mg Tablet Take 1 tablet by mouth as needed for Anxiety. As needed pre PET scan, take 1 tab prior to and repeat once if needed (Patient not taking: Reported on 01/25/2018) 2 tablet 0 ??? triamcinolone (KENALOG) 0.1 % [...] Every Day Smoker Packs/day: 2.00 Years: 52.00 Pack years: 104.00 Types: Cigarettes ??? Smokeless tobacco: Never Used [...] supraclavicular, and axillary nodes normal Neurologic: Normal ?Non-Rock Mason Final DIAGNOSIS Positive for Malignancy Electronically signed [...] ?? TECHNIQUE: Procedure: Following IV injection of 64-fwoquo-2-deoxyglucose (FDG) a standard uptake of approximately 60 [...] [address] scan done at [facility] on 08/09/2017 showed significant interval improvement with diminished prominence of multiple pulmonary masses with no new lesions identified. Laboratory done 01/15/18 shows a [...] essentially complete response to treatment. She will continue her monthly port flushes. Her labs were within limits. Her chest xray showed question of bilateral pulmonary nodules. We will repeat her ct scan in the next two weeks to further assess these. She is comfortable with this plan. documented in this encounter Plan of Treatment Upcoming Encounters Date Type Specialty Care Team Description 11/28/2021 Hospital Encounter Radiology Harlan Parmar MD [facility] HEMATOLOGY/ONCOLOGY DEPT. [place], [place] [address] (Kai fermin) 11/28/2021 Appointment Radiology Harlan Parmar M D [facility] HEMATOLOGY/ONCOLOGY DEPT. [place], [place] [address] (Kai fermin) 12/01/2021 Office Visit Hematology and Oncology Harlan Parmar MD [facility] HEMATOLOGY/ONCOLOGY DEPT. [place], [place] [address] (Wo rk) documented as of this encounter Visit Diagnoses Diagnosis Primary malignant neoplasm of right lowe r lobe of lung Malignant neoplasm of lower lobe, bronch us, or lung documented in this encounter Care Teams Golf Sales Manager Relationship Specialty Start Date End Date Fernanda Evans APRN PCP - General Family Medicine 08/14/16 08/26/[address] [place] [address] documented as of this encounter
--- OUTSIDE RECORDS SUMMARY | 2021-11-25 00:29 | XMS_ITS | Encounter Summary ---
:1950 Author Organization [facility] [place] [address] Care Team Providers Name Role Phone Nuha Evanscarlos eduardo Mobley APRN Primary Care Provider Reason for Visit Reason Onset Date Comments Vascular Access Problem 09/06/2017 Encounter Details Date Type Department Care Team Description 09/06/2017 Telephone Hematology and Kayce Donaldson lar Access Oncology at [facility] [place] [address] Social History Tobacco Use Types Packs/Day [...] this encounter Miscellaneous Notes Telephone Encounter - Kayce Donaldson RN - 09/06/2017 3:54 PM EDT Received call from patient who reports that her port is swollen and the swelling goes up toward her neck. This started 3 days ago. Has pain when she turns her head. Port last used 5 weeks ago. Patient will be seen tomorrow am by nurse in infusion area. Patient agrees to have port checked. documented in this encounter Plan of Treatment Upcoming Encounters Date Type Specialty Care Team Description 11/28/2021 Hospital Encounter Radiology Harlan Parmar MD [facility] HEMATOLOGY/ONCOLOGY DEPT. [place], [place] [address] (Wo rk) 11/28/2021 Appointment Radiology Harlan Parmar M D [facility] HEMATOLOGY/ONCOLOGY DEPT. [place], [place] [address] (Wo rk) 12/01/2021 Office Visit Hematology and Oncology Harlan Parmar MD [facility] HEMATOLOGY/ONCOLOGY DEPT. [place], [place] [address] (Wo rk) documented as of this encounter Visit Diagnoses Not on filedocumented in this encounter Care Teams Digital Marketing Program Manager Relationship Specialty Start Date End Date Fernanda Evans APRN PCP - General Family Medicine 08/14/16 08/26/19 [address] [facility] [address] documented as of this encounter
--- OUTSIDE RECORDS SUMMARY | 2021-11-25 00:29 | XMS_ITS | Encounter Summary ---
:1950 Author Organization [facility] [place] [address] Care Team Providers Name Role Phone Nuha Evanscarlos eduardo Mobley APRN Primary Care Provider Reason for Visit Reason Onset Date Comments Diarrhea 08/20/2017 Encounter Details Date Type Department Care Team Description 08/20/2017 Telephone Hematology and Oncology at Judy Donaldson Diarrhea [facility] [place] [address] Social History Tobacco Use Types Packs/Day [...] Telephone Encounter - Kayce Donaldson RN - 08/20/2017 10:13 AM EDT Received Ed message from clinical certified legal secretary specialist Divya's called to cancel her appt, she has diarrhea. Spoke with patient's who reports that Divya has had 4 loose bm's this am . Taking Imodium. Avoids dairy products.Eating No nausea. Will continue to take Imodium. will call if diarrhea persists. documented in this encounter Plan of Treatment Upcoming Encounters Date Type Specialty Care Team Description 11/28/2021 Hospital Encounter Radiology Harlan Parmar MD [facility] HEMATOLOGY/ONCOLOGY DEPT. [place], [place] [address] (Wo rk) 11/28/2021 Appointment Radiology Harlan Parmar M D [facility] HEMATOLOGY/ONCOLOGY DEPT. [place], [place] [address] (Wo rk) 12/01/2021 Office Visit Hematology and Oncology Harlan Parmar MD [facility] HEMATOLOGY/ONCOLOGY DEPT. [place], [place] [address] (Wo rk) documented as of this encounter Visit Diagnoses Not on filedocumented in this encounter Care Teams Recruiting Operations Consultant Relationship Specialty Start Date End Date Fernanda Evans APRN PCP - General Family Medicine 08/14/16 08/26/19 [address] [place] [address] documented as of this encounter
--- OUTSIDE RECORDS SUMMARY | 2021-11-25 00:30 | XMS_ITS | Encounter Summary ---
:1950 Author Organization [facility] [place] [address] Care Team Providers Name Role Phone Nathan, Fernandacarlos eduardo Mobley APRN Primary Care Provider Reason for Referral Diagnostic Test (Routine) - Closed Specialty Diagnoses / Procedures Referred By Contact Refer red To Contact Radiology Diagnoses Primary malignant neoplasm of right lower lobe of lung Hypothyroidism due to drugs Lopez Billings MD [facility] Rad Nuclear Med Procedures PET CT Standard Plus Extremities & Head PET CT Standard Skull Base to Mid-Thigh [address] [place] [phone] Fax: Referral ID Status Reason Start Date Expiration Date Visits V isits Requested Authorized [id number] Closed Specialty 01/31/2017 05/01/2017 1 1 Service Requested Reason for Visit Reason Comments Lung Cancer Encounter Details Date Type Department Care Team Description 01/23/2017 Office Visit Hematology/Oncology Lopez Billings Pri mary malignant neoplasm of right lower lobe of lung; at [facility] Hypothyroidism due to drugs [address] [place] [phone] Social History Tobacco Use Types Packs/Day Years [...] Sign Reading Time Taken Comments Blood Pressure 131/51 01/23/2017 10:30 AM EDT Pulse 63 01/23/2017 10:30 AM EDT Temperature 36.5 ??C (97.7 ??F) 01/23/2017 10:30 AM EDT Respiratory Rate 18 01/23/2017 10:30 AM EDT Oxygen Saturation 100% 01/23/2017 10:30 AM EDT Inhaled Oxygen Concentration - - Weight 52.1 kg (114 lb 12.8 oz) 01/23/2017 10:30 AM EDT Height 164.8 cm (5' 4.88) 01/23/2017 10:30 AM copied EDT Body Mass Index 19.17 01/23/2017 10:30 AM EDT documented in this encounter Progress Notes Lopez Billings MD - 01/23/2017 10:30 AM EDT Images from the original note were not included. 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 SUBJECTIVE: Divya comes in today for a fourth cycle of carboplatin and Alimta with pembrolizumab in the treatment of her adenocarcinoma of the lung. She continues to have a lot of symptomatology, noting some discomfort in her lungs but this is not a pleuritic type pain. She also notes some rib and pelvic pain on occasion as well and has really not noticed any change since starting treatment other than the fact that she is a bit more fatigued. She has not had any further rashes and notes that all the areas where she had rash previously are pigmented. There are a few small pigmented lesions on her face that are new and some of the areas on her back as well. She has not had any diarrhea. No particular shortness of breath or change in her usual cough. She has had some epistaxis at times. Review of systems was otherwise negative. Past Medical History: Diagnosis Date ??? GERD (gastroesophageal reflux disease) ??? IBS (irritable bowel syndrome) ??? Lung cancer, primary, with metastasis from lung to other site ??? Multiple sclerosis ??? SVT (supraventricular tachycardia) Past Surgical History: Procedure Laterality Date ??? APPENDECTOMY 2007 ??? INGUINAL HERNIA REPAIR 1994 ??? PRO [facility] EBUS GUIDED SAMPL 1/2 NODE STATION/STRUX N/A 10/19/2016 BRONCH, W ENDOBRONCHIAL ULTRASOUND (EBUS) GUIDED SAMPLING, 1/2 NODES (WRVU 4.71) performed by Tunde Wang MD at [facility] MAIN OR ??? PRO COLONOSCOPY, BIOPSY N/A 12/21/2014 COLONOSCOPY FLEXIBLE, WITH BX performed by Joaquin Freeman MD at [facility] ENDOSCOPY ??? PRO UPPER GI ENDOSCOPY, DIAGNOSTIC N/A 10/19/2016 ENDOSCOPY, UPPER GI, DIAGNOSTIC, WITH OR WITHOUT SPECIMENS performed by Tunde Wang MD at [facility] MAIN OR ??? MARCO AND BSO [...] to Visit Medication Sig Dispense Refill ??? triamcinolone (KENALOG) 0.1 % Lotion Apply topically 2 times daily. 60 mL 3 ??? methylPREDNISolone (MEDROL DOSPACK) 4 mg Tablets, Dose Pack Use as directed on product package. (Patient not taking: Reported on 12/12/2016) 21 tablet 0 ??? fluconazole (DIFLUCAN) 200 mg Tablet Take 1 tablet by mouth daily. (Patient not taking: Reportedon 01/02/2017) 7 tablet 0 ??? folic acid (FOLVITE) 1 mg Tablet Take 1 tablet by mouth daily. 90 tablet 3 ??? prochlorperazine (COMPAZINE) 10 mg Tablet Take 1 tablet by mouth every 6 hours as needed for Nausea. 30 tablet 1 ??? acetaminophen (TYLENOL) 500 [...] supraclavicular, and axillary nodes normal Neurologic: Normal ?Non-Help Desk Team Leader Final DIAGNOSIS Positive for Malignancy Electronically signed by: ??Alina LUNA, Herbert Johnson Verified: ??10/21/2016 ?Cytopathologist DISCUSSION Lymph node: level 7 (EBUS-guided FNA) - Compatible with adenocarcinoma. The tumor cells resemble those present in the concurrent level 10L lymph node FNA. ? Molecular Genetics RESULTS Please refer to Cytopathology Report -[id number] for final pathology diagnosis. INDICATION FOR STUDY: ?? Lymph node, level 7 (EBUS-guided FNA) - Compatible with ??adenocarcinoma SPECIMEN ANALYZED: ?? -1052 A1 Analysis: ??Examination of DNA extracted from formalin-fixed paraffin-embedded tumor ??tissue for somatic mutation analysis. Results: ??The following gene variants were identified in the submitted tissue: CLINICALLY ACTIONABLE VARIANTS: BRAF: ??NEGATIVE EGFR: ??NEGATIVE KRAS: ??MUTATION c.34G> T p.G12C Exon 2 PIK3CA: ??NEGATIVE OTHER DETECTED VARIANTS: N/A Interpretation: ?? After review of the pathology report and slides, the specimen ??(-1052 A1) was selected for mutation analysis from [...] PET CT STANDARD PLUS EXTREMITIES AND HEAD ?? CLINICAL HISTORY: Chest CT showing multiple bilateral round opacities of lungs and radiology recommending PET CT to further evaluate ?? TECHNIQUE: Procedure: Following IV injection of 94-grtogi-5-deoxyglucose (FDG) a standard uptake of approximately 60 minutes, a noncontrast CT scan followed by a PET scan were acquired from the top of head to bottom of feet. The noncontrast CT was used for anatomic localization and photon attenuation correction of the PET scan. ?? Blood glucose level: 106 (mg/dL) ?? FDG dose: 7.8 mCi ?? COMPARISON: 08/07/[address] ?? FINDINGS: ?? HEAD/NECK: A small focus of FDG activity seen at the posterior inferior aspect of the right thyroid gland. No other abnormal FDG activity is seen in the head or neck. ?? CHEST: Unchanged size of the 4 x 3 cm FDG avid cavitary right lower lobe mass. The 2 x 2.2 cm FDG avid left lower lobe pulmonary nodule is also grossly unchanged in size. Multiple additional smaller pulmonary nodules are seen in all lobes, the largest of which are FDG avid while the smaller nodules may be below the sensitivity of PET. An enlarged FDG avid subcarinal lymph node is seen abutting the anterior aspect of the esophagus. Small FDG avid right hilar lymph nodes are also seen. ?? ABDOMEN/PELVIS: A small focus of hypermetabolic activity is seen in the gastroesophageal junction without obvious CT correlate. An enlarged hypermetabolic gastrohepatic lymph node measuring 13 mm in short axis is seen adjacent to the gastroesophageal junction. ?? Several simple hepatic cysts are redemonstrated. ?? SKELETON/EXTREMITIES: A 14 x 7 mm hypermetabolic lytic lesion is seen in the left ischium. A focus of FDG activity without the CT correlate is seen the posterolateral left 11th rib. ? A small intensely FDG avid lesion is seen within the abductor compartment of the left, intramuscular versus perimuscular location. ?? IMPRESSION 1. FDG avid pulmonary masses and nodules are highly suspicious for malignancy/metastasis. 2. FDG avid right hilar, mediastinal, and gastrohepatic adenopathy, highly suspicious for shmuel metastases. 3. Small hypermetabolic lytic lesion in the left ischium, and small hypermetabolic focus within the posterolateral left 11th rib, highly suspicious for osseous metastases. 4. Small hypermetabolic focus in the intra or perimuscular left thigh abductor compartment, suspicious for metastasis. 5. Small hypermetabolic focus in the GE junction region with no definite CT correlate. While this could represent physiologic activity, a small focus of inflammation or malignancy is not excluded. Consider direct visualization. 6. Incidental finding of a small hypermetabolic focus in the inferior pole of the right thyroid lobe, suspicious for a benign versus malignant thyroid Neoplasm. Recent ultrasound of the thyroid on October [...] mg Review of her laboratory today shows normal electrolytes, creatinine of 1.11, calcium of 8.9, ALP of 109. Her AST and ALT have gone back down to normal. TSH is 2.22 and T4's have been fine. CBC shows a white count of 5.56, a hemoglobin of 9.0 which is a little bit lower, hematocrit 27.2, platelet count is 290,000, absolute neutrophil count is 1.80. ASSESSMENT/PLAN: Divya is fine today for her fourth cycle of treatment with pembrolizumab, carboplatin, and Alimta. She cannot take IV contrast dye and so CT scanning with her particular metastatic pattern which is basically found in small bony lesions, small scattered axial lymph nodes, and some small tumors in the lung will be next to impossible to assess with noncontrast CT scanning. In view of that, really the only way to look at how we are doing with treatment is with a PET scan. Similarly, she is having a lot of symptoms. I cannot relate all of these either to the treatment or the tumor, and that makes sorting out whether she is having any positive clinical response a bit difficult as well. There is no thrombocytopenia to explain the epistaxis. The anemia that we are seeing is most consistent with the anemia one would see with ongoing chemotherapy. I do not have any evidence for any any autoimmune problems. The eye tearing could be associated with the pembrolizumab although it is a lot more common to see dry eyes instead. The rash she had fortunately has not recurred and I suspect it was more from the Alimta in view of its time course and the fact that it has not returned. She is fine today with treatment and we will go ahead with that and get a PET scan prior to cycle 5. If she has shown a very good response, one would consider dropping the carboplatin from the regimen. documented in this encounter Plan of Treatment Upcoming Encounters Date Type Specialty Care Team Description 11/28/2021 Hospital Encounter Radiology Harlan Parmar MD [facility] HEMATOLOGY/ONCOLOGY DEPT. [place], [place] [address] (Wo rk) 11/28/2021 Appointment Radiology Harlan Parmar M D [facility] HEMATOLOGY/ONCOLOGY DEPT. [place], [place] [address] (Wo rk) 12/01/2021 Office Visit Hematology and Oncology Harlan Parmar MD [facility] HEMATOLOGY/ONCOLOGY DEPT. [place], [place] [address] (Wo rk) documented as of this encounter Procedures Procedure Name Priority Date/Time Associated Diagnosis Comme nts LAB SCAN 01/23/2017 12:00 AM Results for this EDT procedure are i n the results section . documented in this encounter Results PET CT Standard Plus Extremities & Head (02/27/2017 10:44 AM EST) Anatomical Region Laterality Modality Nuclear Medicine Specimen (Source) Anatomical Location Collection Method / Collectio n Time Received Time / Laterality Volume Impressions 02/27/2017 12:31 PM EST 1. ??Majority of the bilateral pulmonary nodules have resolved metabolically and are anatomically smaller. Two residual n odules in the right lung show mildly increased FDG avidity, similar to medias tinal blood pool activity and less than liver background, favored to represent p osttreatment changes. Attention is recommended on follow-up imaging to excl ude the possibility of residual active malignancy. 2. ??No active shmuel, intramuscular, or skeletal metastases. 3. ??Similar appearance of small hyperme tabolic focus in the inferior pole of the right thyroid gland suspicious for benig n versus malignant thyroid neoplasm. Thank you for referring this patient [facility]. I have personally reviewed the image(s) and the residents interpretation and agree with the findings, Joelle espinoza 02/27/2017 12:31 PM Narrative 02/27/2017 12:31 PM EST EXAMINATION: PET CT STANDARD PLUS EXTREMITIES AND HEAD CLINICAL HISTORY: Follow Up Scan post 3 months combination Chemotherapy and Immunotherapy TECHNIQUE: Procedure: Following IV injec tion of 92-dllzgy-0-deoxyglucose (FDG) a standard uptake of approximately 60 aspen daksha, a noncontrast CT scan followed by a PET scan were acquired from the top of h ead to bottom of feet. The noncontrast CT was used for anatomic localization an d photon attenuation correction of the PET scan. No enteric contrast was admini stered. Blood glucose level: 127 (mg/dL) FDG dose: 7.4 mCi Reference mean liver SUV: Today 2.3, pre viously 2.1 COMPARISON: 09/26/2016 PET/CT, 08/07/2016 outside [facility] chest CT FINDINGS: HEAD/NECK: A small focus of increased activity is a gain seen in the posterior inferior aspect of the right thyroid lobe (axial image 92). Normal activity in all remaining soft tissue regions of the nec k and throughout the head. CHEST: Multiple pulmonary nodules are again see n throughout both lungs. The majority of the previously demonstrated hypermetabol ic nodules have completely resolved metabolic activity and have decreased in size compared to the prior exam. There are two residual nodular opacities demon strating minimally increased metabolic activity, that measuring approximately 1 3 x 9 mm in the right lower lobe (axial CT image 118) with an SUV max of 1.7 whi ch previously measured approximately 23 x 16 mm with an SUV max of 11.1 and the small more groundglass appearing opacity in the right upper lobe (axial CT image 116) which is similar in size with an SUV max now 1.6 as compared to 2.[address] visualized scattered small nodular opacities, including groun dglass opacities, are unchanged. No new pulmonary nodules are seen. The previously seen subcarinal hypermeta bolic lymphadenopathy has resolved both metabolically and anatomically. Previous ly noted right hilar shmuel mass and left upper lobe/apical pleural hypermetabolic activity have resolved. There has been interval placement of an anterior chest port with catheter tip terminating in the lower superior vena cava. Coronary a rtery and aortic calcifications are reidentified. ABDOMEN/PELVIS: Normal activity in all soft tissue regio ns. This is cleared, the previously seen enlarged gastrohepatic lymph node has re solved both anatomically and metabolically. Focal hypermetabolic acti vity previously seen at the gastroesophageal junction has also resol luiza. Stable CT visualized hypoattenuating 6 mm left hepatic lobe l esion is too small to be characterize, unchanged. SKELETON/EXTREMITIES: Normal activity in all regions of the ax ial and appendicular skeleton. The previously seen hypermetabolic left isch ial and left 10th rib lytic foci have resolved metabolically and increased scl erosis is seen at the left ischial site. ?? Normal activity in all soft tissue regio ns of the upper and lower extremities, aside for scattered areas of increased m uscular activity in the bilateral, left greater than right gluteal, bilateral fo rearm, left calf, and plantar right foot musculature, likely related to muscular strain. There has been complete metabolic resolution of the previously s een small FDG avid intramuscular/perimuscular lesion in the left proximal anterior thigh. Procedure Note Joelle Lewis MD - 02/27/2017Formatt ing of this note might be different from the original. EXAMINATION: PET CT STANDARD PLUS EXTREM ITIES AND HEAD CLINICAL HISTORY: Follow Up Scan post 3 months combination Chemotherapy and Immunotherapy TECHNIQUE: Procedure: Following IV injec tion of 49-fxozhb-4-deoxyglucose (FDG) a standard uptake of approximately 60 aspen daksha, a noncontrast CT scan followed by a PET scan were acquired from the top of h ead to bottom of feet. The noncontrast CT was used for anatomic localization an d photon attenuation correction of the PET scan. No enteric contrast was admini stered. Blood glucose level: 127 (mg/dL) FDG dose: 7.4 mCi Reference mean liver SUV: Today 2.3, pre viously 2.1 COMPARISON: 09/26/2016 PET/CT, 08/07/2016 [facility] FINDINGS: HEAD/NECK: A small focus of increased activity is a gain seen in the posterior inferior aspect of the right thyroid lobe (axial image 92). Normal activity in all remaining soft tissue regions of the nec k and throughout the head. CHEST: Multiple pulmonary nodules are again see n throughout both lungs. The majority of the previously demonstrated hypermetabol ic nodules have completely resolved metabolic activity and have decreased in size compared to the prior exam. There are two residual nodular opacities demon strating minimally increased metabolic activity, that measuring approximately 1 3 x 9 mm in the right lower lobe (axial CT image 118) with an SUV max of 1.7 whi ch previously measured approximately 23 x 16 mm with an SUV max of 11.1 and the small more groundglass appearing opacity in the right upper lobe (axial CT image 116) which is similar in size with an SUV max now 1.6 as compared to 2.[address] visualized scattered small nodular opacities, including groun dglass opacities, are unchanged. No new pulmonary nodules are seen. The previously seen subcarinal hypermeta bolic lymphadenopathy has resolved both metabolically and anatomically. Previous ly noted right hilar shmuel mass and left upper lobe/apical pleural hypermetabolic activity have resolved. There has been interval placement of an anterior chest port with catheter tip terminating in the lower superior vena cava. Coronary a rtery and aortic calcifications are reidentified. ABDOMEN/PELVIS: Normal activity in all soft tissue regio ns. This is cleared, the previously seen enlarged gastrohepatic lymph node has re solved both anatomically and metabolically. Focal hypermetabolic acti vity previously seen at the gastroesophageal junction has also resol luiza. Stable CT visualized hypoattenuating 6 mm left hepatic lobe l esion is too small to be characterize, unchanged. SKELETON/EXTREMITIES: Normal activity in all regions of the ax ial and appendicular skeleton. The previously seen hypermetabolic left isch ial and left 10th rib lytic foci have resolved metabolically and increased scl erosis is seen at the left ischial site. Normal activity in all soft tissue regio ns of the upper and lower extremities, aside for scattered areas of increased m uscular activity in the bilateral, left greater than right gluteal, bilateral fo rearm, left calf, and plantar right foot musculature, likely related to muscular strain. There has been complete metabolic resolution of the previously s een small FDG avid intramuscular/perimuscular lesion in the left proximal anterior thigh. IMPRESSION 1. Majority of the bilateral pulmonary n odules have resolved metabolically and are anatomically smaller. Two residual n odules in the right lung show mildly increased FDG avidity, similar to medias tinal blood pool activity and less than liver background, favored to represent p osttreatment changes. Attention is recommended on follow-up imaging to excl ude the possibility of residual active malignancy. 2. No active shmuel, intramuscular, or sk eletal metastases. 3. Similar appearance of small hypermeta bolic focus in the inferior pole of the right thyroid gland suspicious for benig n versus malignant thyroid neoplasm. Thank you for referring this patient [facility]. I have personally reviewed the image(s) and the residents interpretation and agree with the findings, Joelle espinoza 02/27/2017 12:31 PM Lopez Billings MD IMG PET ORDERABLES SCAN DOC: LAB (01/23/2017 12:00 AM EDT) Narrative 01/23/2017 12:00 AM EDT This result has an attachment that is no t available. Ordered by an unspecified provider. Scanning Provider MEDIA MGR SCAN EXT ORDR/RSLT documented in this encounter Visit Diagnoses Diagnosis Primary malignant neoplasm of right lowe r lobe of lung Malignant neoplasm of lower lobe, bronch us, or lung Hypothyroidism due to drugs Other iatrogenic hypothyroidism Primary malignant neoplasm of right lowe r lobe of lung Malignant neoplasm of lower lobe, bronch us, or lung Hypothyroidism due to drugs Other iatrogenic hypothyroidism documented in this encounter Care Teams Jar Capper Relationship Specialty Start Date End Date Fernanda Evans APRN PCP - General Family Medicine 08/14/16 08/26/[address] [place] [address] documented as of this encounter
--- OUTSIDE RECORDS SUMMARY | 2021-11-25 00:30 | XMS_ITS | Encounter Summary ---
:1950 Author Organization [facility] [place] [address] Care Team Providers Name Role Phone Nuha Evanscarlos eduardo Mobley APRN Primary Care Provider Encounter Details Date Type Department Care Team Description 12/26/2016 Orders Only Radiology at [facility] Angelito Faria APRN [facility] [place] [id number] CRITICAL CARE MEDICINE [phone] [place], [place] [address] (Wo rk) Social History Tobacco [...] 11/28/2021 Hospital Encounter Radiology Harlan Parmar MD [facility] HEMATOLOGY/ONCOLOGY DEPT. [place], [place] [address] (Wo rk) 11/28/2021 Appointment Radiology Harlan Parmar M D [facility] HEMATOLOGY/ONCOLOGY DEPT. [place], [place] [address] (Wo rk) 12/01/2021 Office Visit Hematology and Oncology Harlan Parmar MD [facility] HEMATOLOGY/ONCOLOGY DEPT. [place], [place] [address] (Wo rk) documented as of this encounter Visit Diagnoses Not on filedocumented in this encounter Care Teams Zipper Measurer Relationship Specialty Start Date End Date Fernanda Evans APRN PCP - General Family Medicine 08/14/16 08/26/[address] [place] [address] [place] [address] documented as of this encounter
--- OUTSIDE RECORDS SUMMARY | 2021-11-25 00:30 | XMS_ITS | Encounter Summary ---
:1950 Author Organization [facility] [place] [address] Care Team Providers Name Role Phone Nuha Evansn Itz ROBLES Primary Care Provider Encounter Details Date Type Department Care Team Description 11/27/2016 Telephone Care Management Huong Thomas MSW [facility] Chasity chacon [place] [address] Social History Tobacco Use Types Packs/Day [...] this encounter Miscellaneous Notes Telephone Encounter - Huong Thomas MSW - 11/27/2016 3:55 PM EDT Continuing Dispensing Optician Apprentice - Social Work Note: NITESH received confirmation that pt was approved for $255.32 of debbie monies from [facility]. I am available for ongoing support and resource referral, as needed Pager [phone] documented in this encounter Plan of Treatment Upcoming Encounters Date Type Specialty Care Team Description 11/28/2021 Hospital Encounter Radiology Harlan Parmar MD [facility] DR HEMATOLOGY/ONCOLOGY DEPT. [place], [place] [address] (Wo rk) 11/28/2021 Appointment Radiology Harlan Parmar M D [facility] DR HEMATOLOGY/ONCOLOGY DEPT. [place], [place] [address] (Wo rk) 12/01/2021 Office Visit Hematology and Oncology Harlan Parmar MD [facility] DR HEMATOLOGY/ONCOLOGY DEPT. [place], [place] [address] (Wo rk) documented as of this encounter Visit Diagnoses Not on filedocumented in this encounter Care Teams Supervisor Electronics Assembly Relationship Specialty Start Date End Date Fernanda Evans APRN PCP - General Family Medicine 08/14/16 08/26/[address] [place] [place] [address] documented as of this encounter
--- OUTSIDE RECORDS SUMMARY | 2021-11-25 00:30 | XMS_ITS | Encounter Summary ---
:1950 Author Organization [facility] [place] [address] Care Team Providers Name Role Phone Nathan Fernanda Mobley APRN Primary Care Provider Reason for Visit Reason Comments Chemotherapy Cycle 3, Day 1 -- Pembrolizu mab, Alimta, Carboplatin Treatment/Therapy Plan Authorization (Routine) - Closed Specialty Diagnoses / Procedures Referred By Contact Refer red To Contact Diagnoses Primary malignant neoplasm of right lower lobe of lung Lopez Billings MD [facility] Hem Onc Office Procedures TC CARBOPLATIN, 50MG, INJECTION (PARAPLATIN) TC PEMETREXED, 10MG, INJECTION (ALIMTA) TC FOSAPREPITANT, 1MG, INJECTION (EMEND) TC PALONOSETRON HCL, 25MCG, INJECTION (ALOXI) [id number] [address] [place] [address] Phone: Fax: Referral ID Status Reason Start Date Expiration Date Visits Requ ested Visits Authorized [id number] Closed 11/22/2016 02/13/2018 8 8 Encounter Details Date Type Department Care Team Description 01/02/2017 Infusion Hematology Oncology at [facility] malignant neoplasm [facility] of right lower lobe of lung [address] [place], [place] [phone] Social History Tobacco Use Types Packs/Day Years Used Date Current Every Day Smoker Cigarettes 2 52 Smokeless Tobacco: Never Used Comments: 3 cigarettes a day for last 25 years Alcohol Use Standard Drinks/Week Comments No 0 (1 standard drink = 0.6 oz pure alcoho l) Sex Assigned at Date Recorded Female 07/30/2020 4:21 AM EDT documented as of this encounter Progress Notes Mela Jane RN - 01/02/2017 11:00 AM EDT INFUSION THERAPY ADMINISTRATION NOTES DIAGNOSIS: NSCLC CYCLE #: Cycle 3, Day 1 -- pembrolizumab, alimta, carboplatin REASON FOR VISIT: To receive chemotherapy SUBJECTIVE: Divya offers no complaints. OBJECTIVE: VSS. Weight stable. Seen by provider LAB DATA: WBC - 8.42, H/H - 10.2/30.7, plt Ct - 296, ANC - 3.84, Lytes wnl, BUN/CR - 11/0.93 IV ACCESS: port accessed off site, flushes readily with brisk blood return. Pre administration: Chemotherapy orders independently verified for drug name, route, and dosage per patient's height, weight and BSA by Ramone Jane RN and Vanessa Whitmore [facility] REACTIONS (DESCRIPTION, TIME, INTERVENTION AND EFFECTIVENESS) none ASSESSMENT: Divya was awake, alert and tolerated treatment well. Port flushed with 20 cc of NS and 500 units of heparin and de-accessed. PLAN: Return to clinic per routine. documented in this encounter Plan of Treatment Upcoming Encounters Date Type Specialty Care Team Description 11/28/2021 Hospital Encounter Radiology Harlan Parmar MD [facility] DR HEMATOLOGY/ONCOLOGY DEPT. [place], [place] [address] (Kai fermin) 11/28/2021 Appointment Radiology Harlan Parmar M D [facility] DR HEMATOLOGY/ONCOLOGY DEPT. [place], [place] [address] (Kai fermin) 12/01/2021 Office Visit Hematology and Oncology Harlan Parmar MD [facility] HEMATOLOGY/ONCOLOGY DEPT. [place], [place] [address] (Kai fermin) documented as of this encounter Procedures Procedure Name Priority Date/Time Associated Diagnosis Comme nts LAB SCAN 01/02/2017 12:00 AM Results for this EDT procedure are i n the results section . documented in this encounter Results SCAN DOC: LAB (01/02/2017 12:00 AM EDT) Narrative 01/02/2017 12:00 AM EDT This result has an [...] MAR Action Action Date Dose Rate Site CARBOplatin (PARAPLATIN) 384 New Bag 01/02/2017 1:32 PM EDT 384 mg 577 mL/hr mg in dextrose 5% 288.4 mL chemo infusion 384 mg (rounded from 383.5 mg, Target AUC = 5), Intravenous, ONCE, 1 dose, On Sun01/02/17 at 1230, Administer over 30 Minutes, Hold Parameters: CARBOplatin, Call provider for serum creatinine less than (mg/dL): .2, Call provider for serum creatinine greater than (mg/dL): 2, External serum creatinine results used to calculate dose? Yes, Enter serum creatinine value (mg/dL): .93, Enter serum creatinine result date: 01/02/2017 dexamethasone (DECADRON) injection 10 mg Given 01/02/2017 11:52 AM EDT 10 mg 10 mg, Intravenous, ONCE, 1 dose, On Sun01/02/17 at 1130, Administer after pembrolizumab and before PEMEtrexed and CARBOplatin. fosaprepitant (EMEND) 150 mg in New Bag 01/02/2017 11:58 AM ED T 150 mg 310 mL/hr sodium chloride 0.9% 155 mL infusion 150 mg, Intravenous, at 310 mL/hr, ONCE, 1 dose, On Sun01/02/17 at 1130, Routine palonosetron (ALOXI) injection 0.25 mg Given 01/02/2017 11:56 AM EDT 0.25 mg 0.25 mg, Intravenous, ONCE, 1 dose, On Sun01/02/17 at 1130, Administer over 30 seconds., Routine pembrolizumab (KEYTRUDA) 200 mg in New Bag 01/02/2017 12:38 PM EDT 200 mg 216 mL/hr sodium chloride 0.9% 108 mL infusion 200 mg, Intravenous, ONCE, 1 dose, On Sun01/02/17 at 1230, Administer over 30 Minutes, Flush line with NS after each dose. NO DOSE ADJUSTMENTS. For outpatient use only., This is a restricted medication. Is this being used for an FDA approved indication? Yes, This agent is restricted to outpatient use. Is this drug being given as an outpatient? Yes PEMEtrexed (ALIMTA) 760 mg in New Bag 01/02/2017 1:15 PM EDT 760 m g 782 mL/hr sodium chloride 0.9% 130.4 mL chemo infusion 760 mg (500 mg/m2/dose ? 1.52 m2 Treatment Plan BSA from Recorded weight), Intravenous, ONCE, 1 dose, On Sun01/02/17 at 1230, Administer over 10 Minutes, Incompatable with calcium containing IV products documented in this encounter Care Teams Die Engraving Supervisor Relationship Specialty Start Date End Date Fernanda Evans APRN PCP - General Family Medicine 08/14/16 08/26/[address] [place] [address] documented as of this encounter
--- OUTSIDE RECORDS SUMMARY | 2021-11-25 00:30 | XMS_ITS | Encounter Summary ---
:1950 Author Organization [facility] [place] [address] Care Team Providers Name Role Phone Fernanda Evans APRN Primary Care Provider Reason for Visit Reason Onset Date Comments Diarrhea 02/16/2017 Cintinued diarrhea Encounter Details Date Type Department Care Team Description 02/16/2017 Telephone Hematology/Oncology at Mela Jane, Diarrhea (Cintinued [facility] RN diarrhea) [address] [place] [phone] Social History Tobacco Use Types Packs/Day [...] this encounter Miscellaneous Notes Telephone Encounter - Mela Jane RN - 02/16/2017 10:29 AM EST Patient has had continual diarrhea. She stated that after starting prednisone she had one day where her stool was formed. After that she has loose stool after eating anything at all. She said she does not have a fever and has been monitoring this. She stated that she believes the symptoms are the sameas when she had the c-diff and believes it has recurred. We discussed proper handwashing and disinfection of bathroom which she has a good handke on this. She uses one bathroom and others in the household use another. Dr. Billings was consulted and he recommends that she contact her PCP to manage the probable c-diff with repeat stool specimen and probable vancomycin therapy. Patient is in agreement to c ontact PCP. She will call us if there is any further concern. Dr. Billings updated via this note. Telephone Encounter - Mela Jane RN - 02/16/2017 10:28 AM EST ----- Message from Shakira Flores sent at 02/16/2017 8:13 AM EST ----- Regarding: Please Call Claudine called to let us know that she is still having trouble with diarrhea. She would like you tocall her back to go over what she should do. Shakira Lopez documented in this encounter Plan of Treatment Upcoming Encounters Date Type Specialty Care Team Description 11/28/2021 Hospital Encounter Radiology Harlan Parmar MD [facility] DR HEMATOLOGY/ONCOLOGY DEPT. [place], [place] [address] (Wo rk) 11/28/2021 Appointment Radiology Harlan Parmar M D [facility] DR HEMATOLOGY/ONCOLOGY DEPT. [place], [place] [address] (Wo rk) 12/01/2021 Office Visit Hematology and Oncology Harlan Parmar MD [facility] HEMATOLOGY/ONCOLOGY DEPT. [place], [place] [address] (Wo rk) documented as of this encounter Visit Diagnoses Not on filedocumented in this encounter Care Teams Closet Organizer Relationship Specialty Start Date End Date Fernanda Evans APRN PCP - General Family Medicine 08/14/16 08/26/[address] [place] [place] [address] documented as of this encounter
--- OUTSIDE RECORDS SUMMARY | 2021-11-25 00:30 | XMS_ITS | Encounter Summary ---
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 Lopez Billings MD [facility] Rad Nuclear Med Procedures PET CT Standard Plus Extremities & Head PET CT Standard Skull Base to Mid-Thigh [address] [place] [phone] Fax: Referral ID Status Reason Start Date Expiration Date Visits V isits Requested Authorized [id number] Closed Specialty 01/31/2017 05/01/2017 1 1 Service Requested Encounter Details Date Type Department Care Team Description 02/27/2017 Hospital Encounter Nuclear Medicine at Irvin Billings MD [id number] [place] [phone] Social History Tobacco Use Types Packs/Day Years [...] by 0 017 400 mg (241.3 mg magnesium) mouth daily. Take Tablet one PO daily. triamcinolone (KENALOG) 0.1 Apply topically 2 60 [...] 11/20/2016 (COMPAZINE) 10 mg mouth every 6 TabletIndications: Primary hours as needed malignant neoplasm of right for Nausea. lower lobe of lung buPROPion (WELLBUTRIN XL) take 3 tablet by 0 08/31 300 mg Tablet Extended mouth once daily Release 24 hr EPINEPHrine 0.3 mg/0.3 mL Reported on 0 7 Auto-Injector 10/09/2016 clonazePAM (KLONOPIN) 1 mg 0.5 mg. 0 6 Tablet vancomycin (VANCOCIN) 125 Take 1 capsule by 90 capsule 0 03/27/2017 mg CapsuleIndications: mouth 4 times Primary malignant neoplasm daily. of right lower lobe of lung, Clostridium difficile colitis predniSONE (DELTASONE) 20 Take 2 tablets by 60 tablet 0 04/09/2017 mg TabletIndications: mouth daily. Primary malignant neoplasm of right lower lobe of lung, Clostridium difficile colitis diaZEPam (VALIUM) 5 mg Take 1 tablet by 2 tablet 0 017 03/08/2018 TabletIndications: Primary mouth as needed malignant neoplasm of right for Anxiety. As lower lobe of lung needed pre PET scan, take 1 tab prior to and repeat once if needed predniSONE (DELTASONE) 20 Take 60 mg daily 30 tablet 0 01/3103/27/2017 mg Tablet methylPREDNISolone (MEDROL Use as directed 21 tablet 0 11/0203/27/2017 DOSPACK) 4 mg Tablets, Dose on product PackIndications: Primary package. malignant neoplasm of right lower lobe of lung fluconazole (DIFLUCAN) 200 Take 1 tablet by 7 tablet 0 03/08/2018 mg Tablet mouth daily. acetaminophen (TYLENOL) 500 Take 2 tablets by 0 0 10/19/2016 09/18/2017 mg Tablet mouth every 6 hours as needed for Pain. atenolol (TENORMIN) 50 mg 0 09/14/2015 04/30/2017 Tablet documented as of this encounter Plan of Treatment Upcoming Encounters Date Type Specialty Care Team Description 11/28/2021 Hospital Encounter Radiology Harlan Parmar MD [facility] DR HEMATOLOGY/ONCOLOGY DEPT. [place], [place] [address] (Wo rk) 11/28/2021 Appointment Radiology Harlan Parmar M D [facility] DR HEMATOLOGY/ONCOLOGY DEPT. [place], [place] [address] (Wo rk) 12/01/2021 Office Visit Hematology and Oncology Harlan Parmar MD [facility] DR HEMATOLOGY/ONCOLOGY DEPT. [place], [place] [address] (Wo rk) documented as of this encounter Procedures Procedure Name Priority Date/Time Associated Comments Diagnosis NM PET CT STANDARD Routine 02/27/2017 10:44 Primary malignant Results for this PLUS EXTREMITIES AND AM EST neoplasm of right pr ocedure are in HEAD lower lobe of jay ng the results Hypothyroidism due section. to drugs POCT GLUCOSE Routine 02/27/2017 8:37 AM Results f or this EST procedure are i n the results section. documented in this encounter Results POCT Glucose (02/27/2017 8:37 AM EST) athologist Signature POC Glucose 127 65 - 199 JOSE CECE mg/dL [facility] Comment: Supplemental ranges: <140 mg/dL before meals <180 mg/dL all other times of the day Specimen Anatomical Collection Method Collection Time Receive d Time (Source) Location / / Volume Laterality Blood specimen 02/27/2017 8:37 AM 017 8:37 (specimen) EST AM EST Lopez Billings MD POINT OF CARE TEST ORDERABLE S Performing Organization Address City/State/[place] [address] documented in this encounter Visit Diagnoses Not on filedocumented in this encounter Care Teams Energy Professional Relationship Specialty Start Date End Date Fernanda Evans, ROBLES PCP - General Family Medicine 08/14/16 08/26/[address] [place] [address] documented as of this encounter
--- OUTSIDE RECORDS SUMMARY | 2021-11-25 00:30 | XMS_ITS | Encounter Summary ---
:1950 Author Organization [place] [address] Care Team Providers Name Role Phone Fernanda Evans APRN Primary Care Provider Encounter Details Date Type Department Care Team Description 11/30/2016 Telephone Hematology/Oncology at GelySelam chavira RN [place] [phone] Social History Tobacco Use Types Packs/Day [...] this encounter Miscellaneous Notes Telephone Encounter - Selam Lara RN - 11/30/2016 4:[address] Billings updated regarding the rash. He prescribed medrol dose renetta instead of refilling triamcinolone. Telephone call to patient to instruct on the medrol dose pack. She expressed concerned because she passed out from a cortisone injection earlier this year and is worried about taking steroids. She reports that the triamcinolone cream has helped her feel better but hasn't stopped the rash. I updated Dr. Billings regarding patient concern. He states that no one is allergic to steroids and advised that she take the medrol as ordered. I instructed patient regarding my conversation with Dr. Billings and his recommendation that she take the medrol pointing out the the triamcinolone cream is also considered a corticosteroid and has been hlepful to her. She is agreeable to trying the medrol and is hopeful that it helps her rash. I confirm ed that she has contact information for semiconductor packages leak tester oncologist in [place] as well as our clinic numbers.Reassured her that she can call with any concerns. Telephone Encounter - Selam Lara RN - 11/30/2016 4:16 PM EDT ----- Message from Tommy Manley sent at 11/30/2016 3:30 PM EDT ----- Regarding: Pt called- has rash all over body Contact: Good Afternoon, Divya called and said that her rash now covers her entire body and that she will not have enough of her medication to help it. Please give her a call back at [phone]. Thanks, Tommy documented in this encounter Plan of Treatment Upcoming Encounters Date Type Specialty Care Team Description 11/28/2021 Hospital Encounter Radiology Harlan Parmar MD [facility] DR HEMATOLOGY/ONCOLOGY DEPT. [place], [place] [address] (Wo rk) 11/28/2021 Appointment Radiology Harlan Parmar M D [facility] DR HEMATOLOGY/ONCOLOGY DEPT. [place], [place] [address] (Wo rk) 12/01/2021 Office Visit Hematology and Oncology Harlan Parmar MD [facility] HEMATOLOGY/ONCOLOGY DEPT. [place], [place] [address] (Wo rk) documented as of this encounter Visit Diagnoses Diagnosis Primary malignant neoplasm of right lowe r lobe of lung Malignant neoplasm of lower lobe, bronch us, or lung documented in this encounter Care Teams Bench Examiner Relationship Specialty Start Date End Date Fernanda Evans APRN PCP - General Family Medicine 08/14/16 08/26/[address] [place] [place] [address] documented as of this encounter
--- OUTSIDE RECORDS SUMMARY | 2021-11-25 00:30 | XMS_ITS | Encounter Summary ---
:1950 Author Organization [facility] [place] [address] Care Team Providers Name Role Phone NathanNuha castellanoscarlos eduardo Mobley APRN Primary Care Provider Encounter Details Date Type Department Care Team Description 03/27/2017 Telephone Hematology/Oncology at Daniel Grady [address] [phone] Social History Tobacco Use [...] this encounter Miscellaneous Notes Telephone Encounter - Daniel Grady - 03/27/2017 9:20 AM EST Called and left pt a msg informing her that her apt would be on 04/05 at 8:[address] Billings. Asked pt to call with any questions or concerns. documented in this encounter Plan of Treatment Upcoming Encounters Date Type Specialty Care Team Description 11/28/2021 Hospital Encounter Radiology Harlan Parmar MD [facility] DR HEMATOLOGY/ONCOLOGY DEPT. [place], [place] [address] (Wo rk) 11/28/2021 Appointment Radiology Harlan Parmar M D [facility] DR HEMATOLOGY/ONCOLOGY DEPT. [place], [place] [address] (Wo rk) 12/01/2021 Office Visit Hematology and Oncology Harlan Parmar MD [facility] HEMATOLOGY/ONCOLOGY DEPT. [place], [place] [address] (Wo rk) documented as of this encounter Visit Diagnoses Not on filedocumented in this encounter Care Teams Scaler Packer Relationship Specialty Start Date End Date Fernanda Evans APRN PCP - General Family Medicine 08/14/16 08/26/[address] [place] [place] [address] documented as of this encounter
--- OUTSIDE RECORDS SUMMARY | 2021-11-25 00:30 | XMS_ITS | Encounter Summary ---
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; at [facility] Primary malignant neoplasm of right lowe r lobe of lung [address] [place] [address] Kacey, [place] [id number] [phone] Social History Tobacco Use Types Packs/Day Years [...] Sign Reading Time Taken Comments Blood Pressure 135/54 03/06/2017 10:36 AM EST Pulse 59 03/06/2017 10:36 AM EST Temperature 36.7 ??C (98.1 ??F) 03/06/2017 10:36 AM EST Respiratory Rate 18 03/06/2017 10:36 AM EST Oxygen Saturation 100% 03/06/2017 10:36 AM EST Inhaled Oxygen Concentration - - Weight 49.9 kg (110 lb) 03/06/2017 10:36 AM EST Height 164.8 cm (5' 4.88) 03/06/2017 10:36 AM EST copi ed Body Mass Index 18.37 03/06/2017 10:36 AM EST documented in this encounter Progress Notes Lopez Billings MD - 03/06/2017 10:30 AM EST Images from the original note were not included. 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 SUBJECTIVE: Divya comes in today for followup on her lung cancer, severe diarrhea that led to an admission about a month ago, and her recent restaging PET scan. At the current time, she is on vancomycin 250 mg twice a day. Because her diarrhea really did not resolve on that, she was continued on prednisone which seemed to at least initially stop the diarrhea. She went off that rapidly, but when I saw her last week we reinstituted that at 20 mg twice a day. Since then, her diarrhea has essentially been gone. She has some soft stool but is now doing better. She is not having any cramping. Her breathing has been fine and we spent some time talking about the current clinical situation. Past Medical History: Diagnosis Date ??? GERD (gastroesophageal reflux disease) ??? IBS (irritable bowel syndrome) ??? Lung cancer, primary, with metastasis from lung to other site ??? Multiple sclerosis ??? SVT (supraventricular tachycardia) Past Surgical History: Procedure Laterality Date ??? APPENDECTOMY 2007 ??? INGUINAL HERNIA REPAIR 1994 ??? PRO [facility] EBUS GUIDED SAMPL 1/2 NODE STATION/STRUX N/A 10/19/2016 BRONCH, W ENDOBRONCHIAL ULTRASOUND (EBUS) GUIDED SAMPLING, 1/2 NODES (WRVU 4.71) performed by Tunde Wang MD at [facility] MAIN OR ??? PRO COLONOSCOPY, BIOPSY N/A 12/21/2014 COLONOSCOPY FLEXIBLE, WITH BX performed by Joaquin Freeman MD at [facility] ENDOSCOPY ??? PRO UPPER GI ENDOSCOPY, DIAGNOSTIC N/A 10/19/2016 ENDOSCOPY, UPPER GI, DIAGNOSTIC, WITH OR WITHOUT SPECIMENS performed by Tunde Wang MD at [facility] MA[facility] OR ??? MARCO AND BSO [...] to Visit Medication Sig Dispense Refill ??? vancomycin (VANCOCIN) 125 mg Capsule Take 1 capsule by mouth 4 times daily. 90 capsule 0 ??? predniSONE (DELTASONE) 20 mg Tablet Take 2 tablets by mouth daily. 60 tablet 0 ??? diaZEPam (VALIUM) 5 mg Tablet Take 1 tablet by mouth as needed for Anxiety. As needed pre PET scan, take 1 tab prior to and repeat once if needed 2 tablet 0 ??? predniSONE (DELTASONE) 20 mg Tablet Take 60 mg daily 30 tablet 0 ??? triamcinolone (KENALOG) 0.1 % Lotion Apply topically 2 times daily. (Patient not taking: Reported on 02/26/2017) 60 mL 3 ??? methylPREDNISolone (MEDROL DOSPACK) [...] supraclavicular, and axillary nodes normal Neurologic: Normal ?Non-Therapy Director Final DIAGNOSIS Positive for Malignancy Electronically signed by: ??Herbert Fuller MD Verified: ??10/21/2016 ?Cytopathologist DISCUSSION Lymph node: level 7 (EBUS-guided FNA) - Compatible with adenocarcinoma. The tumor cells resemble those present in the concurrent level 10L lymph node FNA. ? Molecular Genetics RESULTS Please refer to Cytopathology Report [id number] for final pathology diagnosis. INDICATION FOR STUDY: ?? Lymph node, level 7 (EBUS-guided FNA) - Compatible with ??adenocarcinoma SPECIMEN ANALYZED: ?? 3510 A1 Analysis: ??Examination of DNA extracted from formalin-fixed paraffin-embedded tumor ??tissue for somatic mutation analysis. Results: ??The following gene variants were identified in the submitted tissue: CLINICALLY ACTIONABLE VARIANTS: BRAF: ??NEGATIVE EGFR: ??NEGATIVE KRAS: ??MUTATION c.34G> T p.G12C Exon 2 PIK3CA: ??NEGATIVE OTHER DETECTED VARIANTS: N/A Interpretation: ?? After review of the pathology report and slides, the specimen ??(-[id number] A1) was selected for mutation analysis from [...] ?? TECHNIQUE: Procedure: Following IV injection of 47-dcuqkg-1-deoxyglucose (FDG) a standard uptake of approximately 60 [...] (ALIMTA) IV 500 mg/m2/dose = 760 [facility]2017 Day, Cycle Day 1, Cycle 3 CARBOplatin (PARAPLATIN) IV 384 mg cyanocobalamin (vitamin B-12) SubQ pembrolizumab (KEYTRUDA) IV 200 mg PEMEtrexed (ALIMTA) IV 500 mg/m2/dose = 760 mg [facility] 01/23/2017 Day, Cycle Day 1, Cycle 4 CARBOplatin (PARAPLATIN) IV 342 mg cyanocobalamin (vitamin B-12) SubQ 1,000 mcg pembrolizumab (KEYTRUDA) IV 200 mg PEMEtrexed (ALIMTA) IV 500 mg/m2/dose = 760 mg ASSESSMENT/PLAN: Divya is doing better on the combination of vancomycin twice a day along with prednisone 20 mg twice a day. Clinically I think her diarrhea is more likely to be associated with her check point inhibitor than it is with C. diff although she was culture positive. She has a few more weeks of vancomycin and I told her to go ahead and continue with that and we will stop that when she runs out of pills in 3 weeks. As far as the steroid goes, she is stable now on 20 mg twice a day of prednisone and we will slowly taper her by 10 mg a week. Once we get to 20 mg we will taper her by 5 mg a week. I told her to take 20 mg in the morning and 10 mg in the evening. We will see her back next week and if she is still doing well we will continue to taper her down from there. As far as her lung cancer goes, she has had a complete response. A complete response would be unusual for 3 months of carboplatin, Alimta and is more typical for that to be associated with check point inhibitors. Interestingly, patients that respond to check point inhibitors do have a higher incidence of immune effect such as colitis which is what we are actually seeing in this case. At this point, the options are to just simply watch her which is what we usually do with complete responses in patients on check point inhibitors with secondary side effects. Another option would be to consider maintenance Alimta but as noted I think it is more likely that we are seeing a response from the pembrolizumab. After discussion with Divya today, we will simply follow her off treatment. One thing to note is that complete responses with the check point inhibitors are often durable. Seventy percent remain durable even when the patient is off the check point inhibitor. In that regard, I think Divya may well do well off treatment, perhaps even for years. We will get another PET scan in 3 months. I will see her back next week and see how she is doing on the diarrhea and steroid taper and she will continue on the vancomycin as noted. documented in this encounter Plan of Treatment Upcoming Encounters Date Type Specialty Care Team Description 11/28/2021 Hospital Encounter Radiology Harlan Parmar MD [facility] DR HEMATOLOGY/ONCOLOGY DEPT. [place], [place] [address] (Wo rk) 11/28/2021 Appointment Radiology Harlan Parmar M D [facility] DR HEMATOLOGY/ONCOLOGY DEPT. [place], [place] [address] (Wo rk) 12/01/2021 Office Visit Hematology and Oncology Harlan Parmar MD [facility] DR HEMATOLOGY/ONCOLOGY DEPT. 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
--- OUTSIDE RECORDS SUMMARY | 2021-11-25 00:30 | XMS_ITS | Encounter Summary ---
:1950 Author Organization [facility] [place] [address] Care Team Providers Name Role Phone Nathan Fernanda Mobley APRN Primary Care Provider Reason for Visit Reason Comments Chemotherapy Treatment/Therapy Plan Authorization (Routine) - Closed Specialty Diagnoses / Procedures Referred By Contact Refer red To Contact Diagnoses Primary malignant neoplasm of right lower lobe of lung Lopez Billings MD [facility] Hem Onc Office Procedures TC CARBOPLATIN, 50MG, INJECTION (PARAPLATIN) TC PEMETREXED, 10MG, INJECTION (ALIMTA) TC FOSAPREPITANT, 1MG, INJECTION (EMEND) TC PALONOSETRON HCL, 25MCG, INJECTION (ALOXI) [id number] [address] [place] [address] [address] [place] [address] Phone: Fax: Referral ID Status Reason Start Date Expiration Date Visits Requ ested Visits Authorized [id number] Closed 11/22/2016 02/13/2018 8 8 Encounter Details Date Type Department Care Team Description 11/22/2016 Infusion Hematology Oncology at [facility] malignant neoplasm [facility] of right lower lobe of lung [address] [place], [place] [phone] Social History Tobacco Use Types Packs/Day [...] Sign Reading Time Taken Comments Blood Pressure 104/74 11/22/2016 12:18 PM EDT Pulse 69 11/22/2016 12:18 PM EDT Temperature 36.9 ??C (98.4 ??F) 11/22/2016 12:18 PM EDT Respiratory Rate 18 11/22/2016 12:18 PM EDT Oxygen Saturation 98% 11/22/2016 12:18 PM EDT Inhaled Oxygen Concentration - - Weight 54 kg (119 lb) 11/22/2016 12:18 PM EDT Height 154.8 cm (5' 0.95) 11/22/2016 12:18 PM EDT Body Mass Index 22.53 11/22/2016 12:18 PM EDT documented in this encounter Progress Notes Radha Gill RN - 11/22/2016 12:00 PM EDT Divya Mobley Friend, 66 y.o. female with diagnosis of lung cancer is here for chemotherapy infusion of pembrolizumab/alimta/carbo. PROTOCOL: No CYCLE: 1 WEEK: 1 DAY: 1 S: Pt. offers no complaints at this time. O: Chemotherapy orders independently verified for correct drug name, route and dosage per patient's height, weight and BSA by Osman ROSARIO and onsite pharmacist REACTIONS (DESCRIPTION, TIME, INTERVENTION AND EFFECTIVENESS) NONE After treatment patient reported small amount of emesis X1 while using the bathroom. Instructed patient to call if she continues to have N/V. Pt also instructed to take her antiemetics as directed. A: Pt. Tolerated treatment well. Divya Lucas confirms that all questions and issues have been addressed. P: Return to clinic per schedule documented in this encounter Plan of Treatment Upcoming Encounters Date Type Specialty Care Team Description 11/28/2021 Hospital Encounter Radiology Harlan Parmar MD [facility] HEMATOLOGY/ONCOLOGY DEPT. [place], [place] [address] (Wo rk) 11/28/2021 Appointment Radiology Harlan Parmar M D [facility] DR HEMATOLOGY/ONCOLOGY DEPT. [place], [place] [address] (Wo rk) 12/01/2021 Office Visit Hematology and Oncology Harlan Parmar MD [facility] DR HEMATOLOGY/ONCOLOGY DEPT. [place], [place] [address] (Wo rk) documented as of this encounter Visit Diagnoses Diagnosis Primary malignant neoplasm of right lowe r lobe of lung Malignant neoplasm of lower lobe, bronch us, or lung documented in this encounter Administered Medications Inactive Administered Medications - up to 3 most recent administrations Medication Order MAR Action Action Date Dose Rate Site CARBOplatin (PARAPLATIN) 363 New Bag 11/22/2016 2:53 PM EDT 363 mg 573 mL/hr mg in dextrose 5% 286.3 mL chemo infusion 363 mg (Target AUC = 5), Intravenous, ONCE, 1 dose, On Sun11/22/16 at 1345, Administer over 30 Minutes, Hold Parameters: CARBOplatin, Call provider for serum creatinine less than (mg/dL): .2, Call provider for serum creatinine greater than (mg/dL): 2, External serum creatinine results used to calculate dose? Yes, Enter serum creatinine value (mg/dL): 1.01, Enter serum creatinine result date: 11/20/2016 cyanocobalamin (vitamin B-12) Given 11/22/2016 1:10 PM EDT 1,000 mcg Left Arm injection 1,000 mcg 1,000 mcg, Subcutaneous, ONCE, 1 dose, On Sun11/22/16 at 1245, Administer prior to PEMEtrexed. Confirm last date of Vitamin B12 administration., Routine dexamethasone (DECADRON) injection 10 mg Given 11/22/2016 12:55 PM EDT 10 mg 10 mg, Intravenous, ONCE, 1 dose, On Sun11/22/16 at 1245, Administer after pembrolizumab and before PEMEtrexed and CARBOplatin. fosaprepitant (EMEND) 150 mg in New Bag 11/22/2016 1:00 PM EDT 150 mg 310 mL/hr sodium chloride 0.9% 155 mL infusion 150 mg, Intravenous, at 310 mL/hr, ONCE, 1 dose, On Sun11/22/16 at 1245, Routine palonosetron (ALOXI) injection 0.25 mg Given 11/22/2016 12:57 PM EDT 0.25 mg 0.25 mg, Intravenous, ONCE, 1 dose, On Sun11/22/16 at 1245, Administer over 30 seconds., Routine pembrolizumab (KEYTRUDA) 200 mg in New Bag 11/22/2016 1:55 PM EDT 200 mg 216 mL/hr sodium chloride 0.9% 108 mL infusion 200 mg, Intravenous, ONCE, 1 dose, On Sun11/22/16 at 1345, Administer over 30 Minutes, Flush line with NS after each dose. NO DOSE ADJUSTMENTS. For outpatient use only., This is a restricted medication. Is this being used for an FDA approved indication? Yes, This agent is restricted to outpatient use. Is this drug being given as an outpatient? Yes PEMEtrexed (ALIMTA) 760 mg in New Bag 11/22/2016 2:36 PM EDT 760 m g 782 mL/hr sodium chloride 0.9% 130.4 mL chemo infusion 760 mg (500 mg/m2/dose ? 1.52 m2 Treatment Plan BSA from Recorded weight), Intravenous, ONCE, 1 dose, On Sun11/22/16 at 1345, Administer over 10 Minutes, Incompatable with calcium containing IV products documented in this encounter Care Teams Education Program Coordinator Relationship Specialty Start Date End Date Fernanda Evans APRN PCP - General Family Medicine 08/14/16 08/26/[address] [place] [address] documented as of this encounter
--- OUTSIDE RECORDS SUMMARY | 2021-11-25 00:30 | XMS_ITS | Encounter Summary ---
:1950 Author Organization [place] [address] Care Team Providers Name Role Phone Fernanda Evans APRN Primary Care Provider Reason for Visit Reason Comments Follow-up Encounter Details Date Type Department Care Team Description 11/06/2016 Office Visit Thoracic Surgery at [place], Lung can liat, primary, [facility] [place]de Amado MD with metastasis from [facility] marina g to other site, Drive DR unspecified laterality [place], [place] THORACIC SURGERY [address] [place] [address] [phone] Social History Tobacco Use Types Packs/Day Years Used Date Current Every Day Smoker Cigarettes 2 52 Smokeless Tobacco: Never Used Comments: 3 cigarettes a day for last 25 years Sex Assigned at Date Recorded Female 07/30/2020 4:21 AM EDT documented as of this encounter Last Filed Vital Signs Vital Sign Reading Time Taken Comments Blood Pressure 125/67 11/06/2016 10:41 AM EDT Pulse 70 11/06/2016 10:41 AM EDT Temperature 36.7 ??C (98.1 ??F) 11/06/2016 10:41 AM EDT Respiratory Rate 18 11/06/2016 10:41 AM EDT Oxygen Saturation 96% 11/06/2016 10:41 AM EDT Inhaled Oxygen Concentration - - Weight 52.9 kg (116 lb 9.6 oz) 11/06/2016 10:41 AM EDT Height 154.8 cm (5' 0.95) 11/06/2016 10:41 AM EDT Body Mass Index 22.07 11/06/2016 10:41 AM EDT documented in this encounter Patient Instructions Patient InstructionsDiamond Kimbrough RN - 11/06/2016 10:30 AM EDT Thank-you for seeing Dr Wang today 11/06/16 in Thoracic Surgery . ?? Please exercise each day for 30 minutes or longer. Daily aerobic exercise for at least 30 minuteswill help improve your endurance and improve the breathing capacity of your lungs. This means that you are breathing hard, your heart is beating fast and that you are sweating. Examples of this includewalking, biking, swimming, and using a treadmill or stationary bike. ?? Please call Thoracic surgery at with any questions or concerns. documented in this encounter Progress Notes Tunde Wang MD - 11/06/2016 10:30 AM EDT CHIEF COMPLAINT: Lung cancer, followup EBUS. HISTORY OF PRESENT ILLNESS: Ms. Lucas is a 65-year-old woman with a history of longstanding tobacco use, who I recently evaluated for pulmonary nodules. She had been in addition has a history of multiple sclerosis. At an ER visit for pneumonia in May, a nodule was discovered in the superior segment of the right lower lobe, which was worked up with a chest CT which demonstrated multiple bilateral nodular opacities. Ultimately, she was evaluated with a PET CT which demonstrated both nodules as well as hilar and gastrohepatic lymphadenopathy and suspicious bony lesions. Ultimately I took her to the Operating Room on October 19, where bronchoscopy with endobronchial ultrasound was performed. In addition, we did an upper GI endoscopy. The cytology from the endobronchial ultrasound was positive for adenocarcinoma in the level 7, level 10L lymph nodes, but not 10R. She has recovered well from the biopsy and comes in to discuss the results and further treatment. PHYSICAL EXAM: Today, she appears somewhat anxious but otherwise well. Blood pressure 125/67, heart rate 70, respiratory rate 18, temperature 98.1, O2 sat 96% on room air. She is alert, oriented, in no acute distress. Her lungs are clear to auscultation. Heart is regular and abdomen is nontender and nondistended. IMAGING: No new imaging is obtained at today's visit. Her prior PET CT from September 26 demonstrated FDG-avid pulmonary masses as well as right hilar mediastinal and gastrohepatic lymphadenopathy, a lytic lesion in the left ischium, a focus of uptake in the left thigh, and a small focus of uptake at the GE junction which was benign on my biopsy. ASSESSMENT: A 75-year-old woman with adenocarcinoma of the lung, likely stage IV based on her PET CT and tissue diagnosis. I reviewed with the patient that this was likely to represent an incurable malignancy, but that a remission may be achieved with adequate chemotherapy. I advised her that the next appropriate step in treatment was consultation with the medical oncologist, and we will make this referral to be done in [facility]. She does not need additional care from me at this point and can follow up with thoracic surgery as needed. PLAN: Medical oncology referral, followup in this clinic p.r.n. TUNDE WANG MD documented in this encounter Plan of Treatment Upcoming Encounters Date Type Specialty Care Team Description 11/28/2021 Hospital Encounter Radiology Harlan Parmar MD [facility] DR HEMATOLOGY/ONCOLOGY DEPT. [place], [place] [address] (Wo zander) 11/28/2021 Appointment Radiology Harlan Parmar M D [facility] DR HEMATOLOGY/ONCOLOGY DEPT. [place], [place] [address] (Wo zander) 12/01/2021 Office Visit Hematology and Oncology Harlan Parmar MD [facility] HEMATOLOGY/ONCOLOGY DEPT. [place], [place] [address] (Wo zander) documented as of this encounter Procedures Procedure Name Priority Date/Time Associated Comments Diagnosis ULTRASOUND SCAN 10/12/2016 12:00 AM Resul ts for this (SCAN) EDT procedure are i n the results section. documented in this encounter Results SCAN DOC: ULTRASOUND (10/12/2016 12:00 AM EDT) Narrative 10/12/2016 12:00 AM EDT This result has an attachment that is no t available. Ordered by an unspecified provider. Scanning Provider MEDIA MGR SCAN EXT ORDR/RSLT documented in this encounter Visit Diagnoses Diagnosis Lung cancer, primary, with metastasis fr om lung to other site, unspecified laterality documented in this encounter Care Teams Lumber Grader Relationship Specialty Start Date End Date Fernanda Evans, BALL HOLDER PCP - General Family Medicine 08/14/16 08/26/[address] [place] [place] [address] documented as of this encounter
--- OUTSIDE RECORDS SUMMARY | 2021-11-25 00:30 | XMS_ITS | Encounter Summary ---
:1950 Author Organization [facility] [place] [address] Care Team Providers Name Role Phone Fernanda Evans APRN Primary Care Provider Encounter Details Date Type Department Care Team Description 02/20/2017 Telephone Hematology/Oncology at Lopez Billings MD [address] [address] [place], [place] [address] [phone] Social History Tobacco Use Types Packs/Day Years [...] this encounter Miscellaneous Notes Telephone Encounter - Lopez Billings MD - 02/20/2017 9:06 AM EST Divya did not come into her scheduled appointment again today because of continued diarrhea. In talking to her he noted she was still taking the steroids and the diarrhea did developed again so she called her PCP and was put on vancomycin 125 mg 4 times a day. The diarrhea has lessened slightly but it still severe enough she cannot come in. The plan was for her to continue on the [id number] mg a day and he noted she was doing that. In talking to Divya however she noted that she had stopped the steroids after the diarrhea stopped the first day she took them. That raises the continued possibility of this being a checkpoint inhibitor associated diarrhea. I told Peg to take 80 mg of pre dnisone today and let us know if the diarrhea again resolves. If it does she is to continue the vancomycin for her C. difficile positivity but will drop her prednisone dose to 60 mg a day until I see her back next week in follow-up. If the diarrhea is controlled I plan a slow taper of the steroid overabout a month. I stress the importance of compliance but at this point we need to be treating her both for C. difficile and for colitis associated with her pembrolizumab. documented in this encounter Plan of Treatment Upcoming Encounters Date Type Specialty Care Team Description 11/28/2021 Hospital Encounter Radiology Harlan Parmar MD [facility] DR HEMATOLOGY/ONCOLOGY DEPT. [place], [place] [address] (Wo rk) 11/28/2021 Appointment Radiology Harlan Parmar M D [facility] DR HEMATOLOGY/ONCOLOGY DEPT. [place], [place] [address] (Wo rk) 12/01/2021 Office Visit Hematology and Oncology Harlan Parmar MD [facility] DR HEMATOLOGY/ONCOLOGY DEPT. [place], [place] [address] (Wo rk) documented as of this encounter Visit Diagnoses Diagnosis Primary malignant neoplasm of right lowe r lobe of lung Malignant neoplasm of lower lobe, bronch us, or lung documented in this encounter Care Teams Biology Adjunct Instructor Relationship Specialty Start Date End Date Fernanda Evans APRN PCP - General Family Medicine 08/14/16 08/26/[address] [place] [place] [address] documented as of this encounter
--- OUTSIDE RECORDS SUMMARY | 2021-11-25 00:30 | XMS_ITS | Encounter Summary ---
:1950 Author Organization [facility] [place] [address] Care Team Providers Name Role Phone Nathan, Fernanda Mobley APRN Primary Care Provider Encounter Details Date Type Department Care Team Description 12/01/2016 Orders Only Hematology Oncology at [facility], Primary malignant [facility] RN neoplasm of [address] [place] [phone] Social History Tobacco Use Types [...] MD [facility] DR HEMATOLOGY/ONCOLOGY DEPT. [place], [place] [address] (Kai fermin) 11/28/2021 Appointment Radiology Harlan Parmar M D [facility] HEMATOLOGY/ONCOLOGY DEPT. [place], [place] [address] (Kai fermin) 12/01/2021 Office Visit Hematology and Oncology Harlan Parmar MD [facility] HEMATOLOGY/ONCOLOGY DEPT. [place], [place] [address] (Kai fermin) documented as of this encounter Visit Diagnoses Diagnosis Primary malignant neoplasm of right lowe r lobe of lung Malignant neoplasm of lower lobe, bronch us, or lung documented in this encounter Care Teams Fan Balancer Relationship Specialty Start Date End Date Fernanda Evans, LEAD BURNER PCP - General Family Medicine 08/14/16 08/26/[address] [place] [address] documented as of this encounter
--- OUTSIDE RECORDS SUMMARY | 2021-11-25 00:30 | XMS_ITS | Encounter Summary ---
:1950 Author Organization [facility] [place] [address] Care Team Providers Name Role Phone Nathan Fernanda Mobley APRN Primary Care Provider Reason for Visit Reason Comments Chemotherapy Cycle 2, Day1 Treatment/Therapy Plan Authorization (Routine) - Closed Specialty Diagnoses / Procedures Referred By Contact Refer red To Contact Diagnoses Primary malignant neoplasm of right lower lobe of lung Lopez Billings MD [facility] Hem Onc Office Procedures TC CARBOPLATIN, 50MG, INJECTION (PARAPLATIN) TC PEMETREXED, 10MG, INJECTION (ALIMTA) TC FOSAPREPITANT, 1MG, INJECTION (EMEND) TC PALONOSETRON HCL, 25MCG, INJECTION (ALOXI) [id number] [address] [place] [phone] Phone: Fax: Referral ID Status Reason Start Date Expiration Date Visits Requ ested Visits Authorized [id number] Closed 11/22/2016 02/13/2018 8 8 Encounter Details Date Type Department Care Team Description 12/12/2016 Infusion Hematology Oncology at [facility] malignant neoplasm [facility] of right lower lobe of lung [address] [place] [phone] Social History Tobacco Use Types Packs/Day Years Used Date Current Every Day Smoker Cigarettes 2 52 Smokeless Tobacco: Never Used Comments: 3 cigarettes a day for last 25 years Alcohol Use Standard Drinks/Week Comments No 0 (1 standard drink = 0.6 oz pure alcoho l) Sex Assigned at Date Recorded Female 07/30/2020 4:21 AM EDT documented as of this encounter Progress Notes Saritha Carrasquillo RN - 12/12/2016 11:30 AM EDT INFUSION THERAPY ADMINISTRATION NOTES DIAGNOSIS: NSCLC CYCLE #:2 Day 1 REASON FOR VISIT: Chemotherapy SUBJECTIVE Divya offers no complaints. OBJECTIVE LAB DATA: WBC 6.17, HGB/HCT 11.8/36.1, PLT 422, ANC 1.91, Lytes WNL, BUN 11, Cr 0.96 IV ACCESS: PIV right arm Pre administration: Chemotherapy orders independently verified for drug name, route, and dosage per patient's height, weight and BSA by Saritha Carrasquillo RN & formerly [facility] on site. REACTIONS (DESCRIPTION, TIME, INTERVENTION AND EFFECTIVENESS) none ASSESSMENT Divya was awake, alert and tolerated treatment well. PLAN Return to clinic per routine. documented in this encounter Plan of Treatment Upcoming Encounters Date Type Specialty Care Team Description 11/28/2021 Hospital Encounter Radiology Harlan Parmar MD [facility] DR HEMATOLOGY/ONCOLOGY DEPT. [place], [place] [address] (Kai fermin) 11/28/2021 Appointment Radiology Harlan Parmar M D [facility] DR HEMATOLOGY/ONCOLOGY DEPT. [place], [place] [address] (Kai fermin) 12/01/2021 Office Visit Hematology and Oncology Harlan Parmar MD [facility] DR HEMATOLOGY/ONCOLOGY DEPT. [place], [place] [address] (Kai fermin) documented as of this encounter Visit Diagnoses Diagnosis Primary malignant neoplasm of right lowe r lobe of lung Malignant neoplasm of lower lobe, bronch us, or lung documented in this encounter Administered Medications Inactive Administered Medications - up to 3 most recent administrations Medication Order MAR Action Action Date Dose Rate Site CARBOplatin (PARAPLATIN) 376 New Bag 12/12/2016 2:04 PM EDT 376 mg 575 mL/hr mg in dextrose 5% 287.6 mL chemo infusion 376 mg (rounded from 375.5 mg, Target AUC = 5), Intravenous, ONCE, 1 dose, On Sun12/12/16 at 1315, Administer over 30 Minutes, Hold Parameters: CARBOplatin, Call provider for serum creatinine less than (mg/dL): .2, Call provider for serum creatinine greater than (mg/dL): 2, External serum creatinine results used to calculate dose? Yes, Enter serum creatinine value (mg/dL): .96, Enter serum creatinine result date: 12/11/2016 dexamethasone (DECADRON) injection 10 mg Given 12/12/2016 12:26 PM EDT 10 mg 10 mg, Intravenous, ONCE, 1 dose, On Sun12/12/16 at 1215, Administer after pembrolizumab and before PEMEtrexed and CARBOplatin. fosaprepitant (EMEND) 150 mg in New Bag 12/12/2016 12:30 PM ED T 150 mg 310 mL/hr sodium chloride 0.9% 155 mL infusion 150 mg, Intravenous, at 310 mL/hr, ONCE, 1 dose, On Sun12/12/16 at 1215, Routine palonosetron (ALOXI) injection 0.25 mg Given 12/12/2016 12:23 PM EDT 0.25 mg 0.25 mg, Intravenous, ONCE, 1 dose, On Sun12/12/16 at 1215, Administer over 30 seconds., Routine pembrolizumab (KEYTRUDA) 200 mg in New Bag 12/12/2016 1:07 PM EDT 200 mg 216 mL/hr sodium chloride 0.9% 108 mL infusion 200 mg, Intravenous, ONCE, 1 dose, On Sun12/12/16 at 1315, Administer over 30 Minutes, Flush line with NS after each dose. NO DOSE ADJUSTMENTS. For outpatient use only., This is a restricted medication. Is this being used for an FDA approved indication? Yes, This agent is restricted to outpatient use. Is this drug being given as an outpatient? Yes PEMEtrexed (ALIMTA) 760 mg in New Bag 12/12/2016 1:45 PM EDT 760 m g 782 mL/hr sodium chloride 0.9% 130.4 mL chemo infusion 760 mg (500 mg/m2/dose ? 1.52 m2 Treatment Plan BSA from Recorded weight), Intravenous, ONCE, 1 dose, On Sun12/12/16 at 1315, Administer over 10 Minutes, Incompatable with calcium containing IV products documented in this encounter Care Teams Proof Sorter Relationship Specialty Start Date End Date Fernanda Evans APRN PCP - General Family Medicine 08/14/16 08/26/[address] [place] [address] documented as of this encounter
--- OUTSIDE RECORDS SUMMARY | 2021-11-25 00:30 | XMS_ITS | Encounter Summary ---
:1950 Author Organization [facility] [address] Care Team Providers Name Role Phone Nathan Fernandacarlos eduardo Mobley APRN Primary Care Provider Encounter Details Date Type Department Care Team Description 10/25/2016 Telephone Thoracic Surgery at [facility] [place] [phone] Social History Tobacco Use Types Packs/Day Years Used Date Current Every Day Smoker Cigarettes 2 52 Smokeless Tobacco: Never Used Comments: 3 cigarettes a day for last 25 years Sex Assigned at Date Recorded Female 07/30/2020 4:21 AM EDT documented as of this encounter Miscellaneous Notes Telephone Encounter - Daja Grady RN - 10/25/2016 11:46 AM EDT Thoracic Surgery Nursing Post-operative Follow up: Hx: s/p EBUS POD#: 5 General statement: Pain: GI: Respiratory: Activity: Plan: documented in this encounter Plan of Treatment Upcoming Encounters Date Type Specialty Care Team Description 11/28/2021 Hospital Encounter Radiology Harlan Parmar MD [facility] HEMATOLOGY/ONCOLOGY DEPT. [place], [place] [address] (Kai fermin) 11/28/2021 Appointment Radiology Harlan Parmar M D [facility] HEMATOLOGY/ONCOLOGY DEPT. [place], [place] [address] (Wo rk) 12/01/2021 Office Visit Hematology and Oncology Harlan Parmar MD [facility] HEMATOLOGY/ONCOLOGY DEPT. [place], [place] [address] (Wo rk) documented as of this encounter Visit Diagnoses Not on filedocumented in this encounter Care Teams Pharm Spec Relationship Specialty Start Date End Date Fernanda Evans APRN PCP - General Family Medicine 08/14/16 08/26/[address] [place] [address] documented as of this encounter
--- OUTSIDE RECORDS SUMMARY | 2021-11-25 00:30 | XMS_ITS | Encounter Summary ---
:1950 Author Organization [facility] [place] [address] Care Team Providers Name Role Phone Fernanda Evans ROBLES Primary Care Provider Encounter Details Date Type Department Care Team Description 12/05/2016 Telephone Care Management Huong Thomas MSW [facility]as[place] [phone] Social History Tobacco Use Types Packs/Day [...] Telephone Encounter - Huong Thomas MSW - 12/05/2016 10:29 AM EDT Continuing Director Of Casino - Social Work Note: NITESH received confirmation that pt was approved for [facility] debbie monies (~$250). I am available for ongoing support and resource referral, as needed Pager [phone] documented in this encounter Plan of Treatment Upcoming Encounters Date Type Specialty Care Team Description 11/28/2021 Hospital Encounter Radiology Harlan Parmar MD [facility] DR HEMATOLOGY/ONCOLOGY DEPT. [place], [place] [address] (Wo rk) 11/28/2021 Appointment Radiology Harlan Parmar M D [facility] DR HEMATOLOGY/ONCOLOGY DEPT. [place], [place] [address] (Wo rk) 12/01/2021 Office Visit Hematology and Oncology Harlan Parmar MD [facility] DR HEMATOLOGY/ONCOLOGY DEPT. [place], [place] [address] (Wo rk) documented as of this encounter Visit Diagnoses Not on filedocumented in this encounter Care Teams Career Services Manager Relationship Specialty Start Date End Date Fernanda Evans APRN PCP - General Family Medicine 08/14/16 08/26/[address] [place] [place] [address] documented as of this encounter
--- OUTSIDE RECORDS SUMMARY | 2021-11-25 00:30 | XMS_ITS | Encounter Summary ---
:1950 Author Organization [place] [address] Care Team Providers Name Role Phone Nuha Evanscarlos eduardo Mobley APRN Primary Care Provider Encounter Details Date Type Department Care Team Description 02/28/2017 Telephone Hematology/Oncology at Selam Lara RN [place] [phone] Social History Tobacco Use Types Packs/Day [...] Telephone Encounter - Selam Lara RN - 02/28/2017 2:40 PM EST Pharmacist Mary called stating that patient's spouse was in picking up a prescription and inquired for her if she could have a pneumonia shot. Mary states that it is not a live virus, I let her know that patient is scheduled to come back in next week for consideration of chemo. I will ask Dr. Billings if okay for patient to have pneumonia vaccine and inform her and patient of his recommendation. documented in this encounter Plan of Treatment Upcoming Encounters Date Type Specialty Care Team Description 11/28/2021 Hospital Encounter Radiology Harlan Parmar MD [facility] HEMATOLOGY/ONCOLOGY DEPT. [place], [place] [address] (Wo rk) 11/28/2021 Appointment Radiology Harlan Parmar M D [facility] HEMATOLOGY/ONCOLOGY DEPT. [place], [place] [address] (Wo rk) 12/01/2021 Office Visit Hematology and Oncology Harlan Parmar MD [facility] HEMATOLOGY/ONCOLOGY DEPT. [place], [place] [address] (Wo rk) documented as of this encounter Visit Diagnoses Not on filedocumented in this encounter Care Teams Epic Analyst Relationship Specialty Start Date End Date Fernanda Evans APRN PCP - General Family Medicine 08/14/16 08/26/[address] [place] [address] documented as of this encounter
--- OUTSIDE RECORDS SUMMARY | 2021-11-25 00:30 | XMS_ITS | Encounter Summary ---
:1950 Author Organization [facility] [place] [address] Care Team Providers Name Role Phone Nathan Fernadnacarlos eduardo Mobley APRN Primary Care Provider Reason for Referral Diagnostic Test (Routine) - Closed Specialty Diagnoses / Procedures Referred By Contact Refer red To Contact Radiology Diagnoses Primary malignant neoplasm of right lower lobe of lung Lopez Billings MD [facility] Rad Procedures IR Mediport Placement / Exchange PRO INSERT TUNNELED CV CATH W SUBQ PORT, AGE 5 YRS OR OLDER PRG FLUORO GUIDE CENTRAL VEIN ACCESS PLACE REPLACE REMOVE [address] [place] [phone] Fax: Referral ID Status Reason Start Date Expiration Date Visits V isits Requested Authorized [id number] Closed Specialty 12/12/2016 12/12/2017 1 1 Service Requested Reason for Visit Diagnostic Test (Routine) - Closed Specialty Diagnoses / Procedures Referred By Contact Refer red To Contact Radiology Diagnoses Primary malignant neoplasm of right lower lobe of lung Lopez Billings MD [facility] Rad Procedures IR Mediport Placement / Exchange PRO INSERT TUNNELED CV CATH W SUBQ PORT, AGE 5 YRS OR OLDER PRG FLUORO GUIDE CENTRAL VEIN ACCESS PLACE REPLACE REMOVE [address] [phone] Fax: Referral ID Status Reason Start Date Expiration Date Visits V isits Requested Authorized [id number] Closed Specialty 12/12/2016 12/12/2017 1 1 Service Requested Encounter Details Date Type Department Care Team Description 12/26/2016 Hospital Encounter Radiology at [facility] Lopez Billings, Primary malignant [facility] neoplasm of right [address] [place] [address] [phone] Social History Tobacco Use Types Packs/Day Years [...] Sign Reading Time Taken Comments Blood Pressure 114/54 12/26/2016 2:00 PM EDT Pulse 80 12/26/2016 1:20 PM EDT Temperature 36.6 ??C (97.9 ??F) 12/26/2016 1:30 PM EDT Respiratory Rate 16 12/26/2016 2:00 PM EDT Oxygen Saturation 99% 12/26/2016 2:00 PM EDT Inhaled Oxygen Concentration - - Weight - - Height - - Body Mass Index - - documented in this encounter Discharge Instructions Discharge InstructionsTaRaquel engle RN - 12/26/2016 1:28 PM EDT Images from the original note were not included. [facility] Department of Vascular and Interventional Radiology Discharge Instructions for your Chest Port You have received a ???Power Port?? , which provides access for infusions and blood draws. What makes this a ???Power Port?? is the unique ability to ???power inject?? contrast (intravenous dye) through the port when getting a CT scan, which produces superior images (pictures). Patients who don???thave these special ports need to have an IV started if they need dye injected for their CT scan. Your port is printed with the letters ???CT?? which can be detected by x- ray to identify it as a ???Power Port?? . You will be provided with an ID card stating the specialty finishing utility person and type of port you have. Please carry this with you in a safe place. Bandage: There is a sterile dressing over the port site consisting of small gauze with a clear dressing (Tegaderm or [id number] ). This dressing should be left in place for 48 hours. If the clear dressing becomes loose you should place tape over the edges to secure it in place. Note: If you have steri-strips beneath your dressing, simply allow them to fall off. Do not peel them off. Pain: Apply ice bag to site (s) at 30 minute intervals (30 minutes on and 30 minutes off) for 24 hours?? . May use as needed for pain and/or bruising after 24 hours. Bathing: Do not take a shower until 48 hours after your port is placed; after this time you may shower with [...] or swimming for one week following port placement. What to expect when your port is accessed: 1. You may feel tenderness the first few times it is accessed but generally this subsides over time.Ask your healthcare provider to use a local anesthetic on the site if discomfort is a problem for you. You may ask for a prescription for a topical cream (EMLA) from your clinician; you may apply at home prior to your appointments, to help numb the skin over your port. 2. The clinician should be wearing sterile gloves and a mask during the access procedure. Anyone in the room with you should also have a mask on. 3. The skin over and 2 inches around the port should be cleaned with a disinfectant 4. Tell the clinician if you would like the skin numbed (lidocaine) before the access needle is placed. 5. Unless you are unable to take heparin (blood thinner), the port should be injected with a heparinsolution before deaccess (at end of each treatment or blood draw). When to call your healthcare provider: ??? If you notice bleeding from the puncture site in your neck, or from the port incision on your chest, you should apply firm pressure over the site for 10-15 minutes, keeping the site covered. Call if you are still bleeding after 10-15 minutes. ??? If you develop pain, redness, drainage or swelling at or around the port site, or the puncture site in the neck ??? If you develop fever (elevation of more than 2 degrees or greater than 101F) and/or shaking chills When to call the Interventional Radiology Department: Please call with any questions or concerns. Ifit is during regular office hours, please call [phone]. If it is after regular office hours, oron weekends or holidays, please call [phone] and ask to speak to the Hedis Coordinator on callfor Interventional Radiology. XXX You have received medication during your procedure to help lesson anxiety and keep you comfortable. These medications affect judgement and reaction time. We recommend that you do not drive, operateequipment, sign any important documents, or smoke unattended [...] Sig Dispensed Refills Start Date End Date triamcinolone (KENALOG) 0.1 Apply topically 2 60 [...] 1 mg 0.5 mg. 0 6 Tablet clindamycin (CLEOCIN) 300 Take 2 capsules 18 capsule 0 12/2612/29/2016 mg Capsule by mouth 3 times daily for 3 days. methylPREDNISolone (MEDROL Use as directed 21 tablet [...] 04/30/2017 Tablet documented as of this encounter Progress Notes Raquel Badillo RN - 12/26/2016 11:59 PM EDT Interventional and Vascular Radiology Post-Procedure Call Name: Gabriel Lucas Age: 66 y.o. Sex; Female Date of : 1950 (home) Telephone Information: PCP Fernanda Evans APRN [phone] Date/Time of call: December 27, 2016/8:54 AM Procedure: Mediport placement Procedural Provider: Angelito Faria APRN Contact with patient or if not, with whom? Spoke with pt Message left on answering machine? n/a Provider notified via phone or email if unable to contact pt: n/a Are you having pain related to your procedure now? It hurts a bit, I am using ice and tylenol Lung bx: Any shortness of breath, coughing up blood or chest pain? n/a Liver bx: Any pain a biopsy site: n/a Are you having any swelling or bleeding from the site? denies Are there any improvement in your symptoms? n/a Are you having any other problems related to your procedure? Comments: denies Did you understand the discharge instructions given and do you have any questions? Comments: verbalized understanding, reinforcement provided Do you have any comments about your Nurse or Provider or the care you received? Nurse Comments: none Angelito Faria APRN - 12/26/2016 11:56 AM EDT Reviewed Mrs. Lucas's pre-procedural labs. Her ANC is less than our typical threshold of 0.5. I spoke with her Oncologist Dr. Billings who feels comfortable in proceeding with Mediport insertion with a plan to send her home with 3 days of PO antibiotics. I spoke with Mrs. Lucas and her at length. She understands that this procedure will involve a higher risk of infection than average and is in agreement to proceed at this time. Angelito Faria APRN - 12/26/2016 11:25 AM EDT ASA: 3: Patient with severe systemic disease Mallampati: II: tonsillar pillars are blocked by the tongue Cardiovascular: Rhythm: Regular Rate: Normal Pulmonary: Breath sounds clear to auscultation Consent: The sedation plan, its benefits and risks, and alternatives were discussed with the patient. The planned procedure, its benefits and risks, and alternatives were discussed with the patient. Thepatient consented to the procedure. Sedation Plan: moderate (conscious sedation) IELAT Enmanuel Roberts MD - 12/25/2016 12:03 PM EDT FOCUSED H&P and PRE-PROCEDURE VIR NOTE: PCP: Fernanda Evans APRN Referring Physician: Lopez Billings (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 Chest port placement for chemotherapy is requested. Allergies include- IV contrast (hives, dyspnea) and PCN Past Medical/Surgical History: Patient Active Problem List [...] ??? INGUINAL HERNIA REPAIR 1994 ??? PRO [facility] EBUS GUIDED SAMPL 1/2 NODE STATION/STRUX N/A 10/19/2016 BRONCH, W ENDOBRONCHIAL ULTRASOUND (EBUS) GUIDED SAMPLING, 1/2 NODES (WRVU 4.71) performed by Tunde Wang MD at [facility] MAIN OR ??? PRO COLONOSCOPY, BIOPSY N/A 12/21/2014 COLONOSCOPY FLEXIBLE, WITH BX performed by Joaquin Freeman MD at [facility] ENDOSCOPY ??? PRO UPPER GI ENDOSCOPY, DIAGNOSTIC N/A 10/19/2016 ENDOSCOPY, UPPER GI, DIAGNOSTIC, WITH OR WITHOUT SPECIMENS performed by Tunde Wang MD at [facility] MAIN OR ??? MARCO AND BSO 1989 ??? TONSILLECTOMY Medications: Current Outpatient Prescriptions on File Prior to Encounter Medication Sig Dispense Refill ??? triamcinolone (KENALOG) 0.1 % Lotion Apply topically 2 times daily. 60 mL 3 ??? methylPREDNISolone (MEDROL DOSPACK) 4 mg Tablets, Dose Pack Use as directed on product package. (Patient not taking: Reported on 12/12/2016) 21 tablet 0 ??? fluconazole (DIFLUCAN) 200 mg Tablet Take 1 tablet by mouth daily. 7 tablet 0 ??? folic acid (FOLVITE) [...] extract]; Contrast [iodine and iodide containing products]; Naproxen; Penicillins; and Sulfa (sulfonamide antibiotics) Social [...] Father ??? Diabetes Sister ??? Lupus Brother Physical Exam: Pending Labs: Labs from an outside facility ([facility]), dated 12/11/2016: Hgb=11.8 gm/dL, platelet count 422,000 Prior Imaging: None pertinent @ [facility] Assessment/Plan: 66 yr old F patient with lung Ca and plan for chemotherapy; port placement for durable venous access. Labs: None new needed Prophylactic antibiotic: Clindamycin Medications to discontinue (and when): [none] Patient Position: [supine] Access site: [facility] General Anesthesia: [no] Maggie Macario RN - 12/21/2016 10:13 AM EDT ANGIO NURSING DATABASE Name: GABRIEL LUCAS Date of : 1950 AGE 66 y.o. Address: [address] [facility] [address] (home) Mobile: Telephone Information: Referring Provider: Lopez Billings REASON FOR VISIT: Question Answer Comment Where will study be performed? [facility] Is the patient on anticoagulant / anitplatelet therapy ? No Reason for exam and clinical history: On Chemotherapy, Needs port. ??Best to place Week of 12/11 or Week of 12/25/16 Exam/Procedure requested: Port Placement Anticoagulant/antiplatelet/herbal med. stopped on per MD order. Allergies Allergen Reactions ??? Bee Sting [Hymenoptera Allergenic Extract] Anaphylaxis ??? Contrast [Iodine And Iodide Containing Products] Hives, Shortness Of Breath, Itching and Palpitations ??? Naproxen ??? Penicillins ??? Sulfa (Sulfonamide Antibiotics) Pertinent PMH: Patient Active Problem List Diagnosis Code ??? Primary malignant neoplasm of right lower lobe of lung C34.31 ??? 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 APPENDECTOMY 2007 ??? INGUINAL HERNIA REPAIR 1994 ??? PRO [facility] EBUS GUIDED SAMPL 1/2 NODE STATION/STRUX N/A 10/19/2016 BRONCH, W ENDOBRONCHIAL ULTRASOUND (EBUS) GUIDED SAMPLING, 1/2 NODES (WRVU 4.71) performed by Tunde Wang MD at [facility] MAIN OR ??? PRO COLONOSCOPY, BIOPSY N/A 12/21/2014 COLONOSCOPY FLEXIBLE, WITH BX performed by Joaquin Freeman MD at [facility] ENDOSCOPY ??? PRO UPPER GI ENDOSCOPY, DIAGNOSTIC N/A 10/19/2016 ENDOSCOPY, UPPER GI, DIAGNOSTIC, WITH OR WITHOUT SPECIMENS performed by Tunde Wang MD at [facility] MAIN OR ??? MARCO AND BSO 1989 ??? TONSILLECTOMY Date/Procedure Med's given/comments 12/26/16 Mediport Placement Fentanyl 200 mcg Versed 4 mg Clindamycin 900 mg To procedure room 2 via stretcher. Onto table Supine. All monitors, O2, safety strap in place. Med'sper protocol. Laboratory Results: Medications: Prior to Admission medications Medication Sig Start Date End Date Taking? Authorizing Provider triamcinolone (KENALOG) 0.1 % Lotion Apply topically 2 times daily. 12/01/16 Padmini Vargas APRN methylPREDNISolone (MEDROL DOSPACK) 4 mg Tablets, Dose Pack Use as directed on product package. Patient not taking: Reported on 12/12/2016 11/30/16 Lopez Billings MD fluconazole (DIFLUCAN) 200 mg Tablet Take 1 tablet by mouth daily. 11/27/16 Lopez Billings MD folic acid (FOLVITE) 1 mg Tablet Take 1 tablet by mouth daily. 11/20/16 Lopez Billings MD prochlorperazine (COMPAZINE) 10 mg Tablet Take 1 tablet by mouth every 6 hours as needed for Nausea.11/20/16 Lopez Billings MD acetaminophen (TYLENOL) 500 mg Tablet Take 2 tablets by mouth every 6 hours as needed for Pain. 10/19/16 Elvin Bennett, PA buPROPion (WELLBUTRIN XL) 300 mg Tablet Extended Release 24 hr take 1 tablet by mouth once daily 09/18/16 PROVIDER, HISTORICAL EPINEPHrine 0.3 mg/0.3 mL Auto-Injector Reported on 10/09/2016 08/30/16 PROVIDER, HISTORICAL clonazePAM (KLONOPIN) 1 mg Tablet 10/25/15 PROVIDER, HISTORICAL atenolol (TENORMIN) 50 mg Tablet 09/14/15 PROVIDER, HISTORICAL documented in this encounter Plan of Treatment Upcoming Encounters Date Type Specialty Care Team Description 11/28/2021 Hospital Encounter Radiology Harlan Parmar MD [facility] DR HEMATOLOGY/ONCOLOGY DEPT. [place], [place] [address] (Kai fermin) 11/28/2021 Appointment Radiology Harlan Parmar M D [facility] DR HEMATOLOGY/ONCOLOGY DEPT. [place], [place] [address] (Kai fermin) 12/01/2021 Office Visit Hematology and Oncology Harlan Parmar MD [facility] DR HEMATOLOGY/ONCOLOGY DEPT. [place] [address] (Wo rk) documented as of this encounter Procedures Procedure Name Priority Date/Time Associated Comments Diagnosis IR MEDIPORT PLACEMENT Routine 12/26/2016 1:27 PM Primary malig nant Results for this EDT neoplasm of right procedure are in lower lobe of lung the resul ts section. SCAN, PERIPHERAL Routine 12/26/2016 10:44 Results for this BLOOD AM EDT procedure are i n the results section. HEMOGRAM Routine 12/26/2016 10:44 Results for this AM EDT procedure are i n the results section. DIFFERENTIAL, Routine 12/26/2016 10:44 Results fo r this AUTOMATED AM EDT procedure are i n the results section. PROTHROMBIN TIME Routine 12/26/2016 10:44 Results for this AM EDT procedure are i n the results section. CBC (WITH DIFF) Routine 12/26/2016 10:44 AM EDT documented in this encounter Results IR Mediport Placement / Exchange (12/26/2016 1:27 PM EDT) Anatomical Region Laterality Modality X-Ray Angiography Specimen (Source) Anatomical Location Collection Method / Collectio n Time Received Time / Laterality Volume Narrative 12/27/2016 10:21 AM EDT INTERVENTIONAL RADIOLOGY PROCEDURE NOTE Procedure: 1) US guided right internal jugular vein access 2) Placement of right chest port (CT-com patible) Indication for Procedure: Lung cancer, n eeds durable venous access for chemotherapy Consent: After discussing the risks (inc luding infection, hemorrhage, damage to surrounding structures, respir atory depression) and benefits, the patient consented to the procedure. Method of Sedation: ??Due to the painful nature of the procedure, patient received split doses of intravenous fent anyl and versed from the IR nurse while pulse, pressure, and oxygen satura tion were continuously monitored. 1% lidocaine was used for local analgesi a. Technique: Prior to beginning the procedure, a nano burkd time out Moment of Truth was performed to confirm all villagran aspects (including the patient's identity, informed consent, medical raven rd number, allergies, planned procedure and laterality if appropriate) all of which were correct. The patient received a dose of antibiotics f or prophylaxis. Maximum sterile barrier precautions were used throughout . After preparation of the right neck and upper chest, ultrasound was use d to localize the right internal jugular vein. ??1% lidocaine SQ was admi nistered for local anesthesia, and a 21 ga needle was advanced under ultras ound guidance into the right internal jugular and a 0.018 wire was a dvanced into SVC. ??The remainder of the procedure was performed with fluo roscopic guidance. A 4 Fr introducer sheath was placed and the wir e exchanged for a 0.035 3J wire. The wire was advanced into the IVC. Lido latonya and Bupivacaine was then infiltrated in a caudal-lateral directio n, and infiltrated over a 2 cm infraclavicular area for pocket creation . ??A 1.5 cm incision was made, and with blunt dissection a pocket created. ??The port was attached to the catheter, placed into the pocket. ??A tu nneler was then used to bring the catheter through the tunnel to the venot dena site. The 4 Fr introducer sheath was exchanged for a peel-away she ath over the wire. The wire and inner dilator were removed and the jaime ter advanced into the SVC. ??The sheath was removed. ??The port flushed a nd aspirated well. ??The pocket was closed using a two layer technique (2-0 vicryl deep interrupted and 4-0 vicryl running subcuticular). The skin c losed with indermil. The port was not left accessed. Device Information: Vaccess CT (POWER) P ort REF [id number] Medications: Lidocaine 1% <10 mL SQ, Bup ivacaine-Epinephrine 0.25 %-1:200,000 injection <20 mL;?? Versed 2 mg IV, Fentanyl 200 mcg IV Antibiotic Prophylaxis: Clindamycin 900m g IV EBL: <5 cc Complications: ??No immediate Findings: 1) US exam of the right IJV showed a wid mary patent compressible vessel. 2) New right chest port with the cathete r tip at the cavoatrial junction. Impression: Placement of POWER port in r ight chest. Plan/Disposition: 1) To Angio recovery room, may discharge to home when meets criteria. 2) Port ready for use. General Duty Nurse(s): Associate Provider: Angelito Faria APRN. I was present during the intraservice time as documented by the I R nurse. Attending: Dr. Roberts 12/26/2016 Lopez Billings MD IMG IR ORDERABLES Scan, Peripheral Blood (12/26/2016 10:44 AM EDT) [facility] Method Time Signature Plat Estimate Decreased [facility] RBC Morphology Normal [facility] Specimen Anatomical Collection Method Collection Time Receive d Time (Source) Location / / Volume Laterality Blood specimen 12/26/2016 10:44 7 (specimen) AM EDT 10:54 AM EDT Resulting Agency Comment Spec In Lab Angelito Faria TEST AND TURN UP TECHNICIAN HEMATOLOGY ORDERABLES Performing Organization Address City/State/[place] [address] (ABNORMAL) Differential, Automated (12/26/2016 10:44 AM EDT) [facility] Method Time Signature Neutrophils % 11.4 % [facility] Neutr Abs (ANC) 0.37 1.70 - [facility] (Critical 6.10 [facility] ) x10(3)/ HOSPITAL L LABORATORY Comment: This result has been called to [facility] by Jasmyn Davalos on 12 26 2016 at 1139, and has been read back. Lymphocytes % 71.9 % [facility] Lymphocytes Abs 2.3 0.9 - 3.2 x10(3)/[facility] LABORATORY Monocytes % 13.3 % [facility] Monocyte Abs 0.4 0.3 - 0.9 x10(3)/[facility] LABORATORY Eosinophils % 3.1 % [facility] Eosinophils Abs 0.1 0.0 - 0.4 x10(3)/[facility] LABORATORY Basophils % 0.0 % [facility] Basophils Abs 0.0 0.0 - 0.1 x10(3)/[facility] LABORATORY Immature Gran % 0.30 % [facility] Comment: Immature granulocytes(IG's)percentage an d absolute count will include metamyelocytes, myelocytes, and promyelo cytes. Blood smears from CBCs yielding IG's will be scanned manually for trent reyes. If this scan disagrees with the automated IG or if promyelocytes are not ed, a manual differential will be performed. Bush[place] Gran Abs 0.01 0.00 - 0.04 x10(3)/[facility] LABOR[facility]ORY Specimen Anatomical Collection Method Collection Time Receive d Time (Source) Location / / Volume Laterality Blood specimen 12/26/2016 10:44 7 (specimen) AM EDT 10:54 AM EDT Resulting Agency Comment Spec In Lab Angelito Faria APRN HEMATOLOGY ORDERABLES Performing Organization Address City/State/[place] [address] (ABNORMAL) Hemogram (12/26/2016 10:44 AM EDT) Analysis Performed At Patho logist Time Signature WBC 3.2 (L) 4.0 - 9.5 [facility] x10(3)/[facility] LABORATORY RBC 3.39 (L) 4.00 - [facility] 5.21 [facility] x10(6)/[facility] LABORATORY Hemoglobin 10.6 (L) 11.7 - [facility] 15.5 gm/dL [facility] Hematocrit 30.8 (L) 35.7 - [facility] 45.8 % [facility] MCV 90.9 82.6 - [facility] 94.4 [facility] LABORATORY MCH 31.3 27.1 - [facility] 32.0 pg [facility] MCHC 34.4 31.7 - [facility] 35.0 gm/dL [facility]ORY Platelets 83 (L) 145 - 357 [facility] x10(3)/[facility] LABORATORY RDWSD 45.5 37.0 - [facility] 46.0 [facility] LABORATORY RDWCV 13.9 11.5 - [facility] 14.1 % [facility] LABORATORY MPV 10.6 7.6 - 12.9 [facility] LABORATORY nRBC % Auto 0.0 % [facility] nRBC Abs Auto 0.000 0.000 - [facility] 0.000 [facility] x10(3)/[facility] LABORATORY Specimen Anatomical Collection Method Collection Time Receive d Time (Source) Location / / Volume Laterality Blood specimen 12/26/2016 10:44 7 (specimen) AM EDT 10:54 AM EDT Resulting Agency Comment Spec In Lab Angelito Faria [facility] HEMATOLOGY ORDERABLES Performing Organization Address City/State/[place] [address] Prothrombin Time (12/26/2016 10:44 AM EDT) P athologist Signature PT 13.2 12.0 - 15.0 [facility] LABORATORY Comment: An INR <2.0 indicates adequate procoagul ant activity for hemostasis in most patients without underlying bleeding dis orders, though the INR may not adequately reflect hemostatic capacity i n patients with liver disease and synthetic impairment. The recommended ta rget INR range for therapeutic anticoagulation is 2.0 ? 3.0 for most applications, though lower and higher ranges may be appropriate depending on c linical circumstances. INR 1.0 0.9 - 1.1 [facility] Specimen Anatomical Collection Method Collection Time Receive d Time (Source) Location / / Volume Laterality Blood specimen 12/26/2016 10:44 7 (specimen) AM EDT 10:54 AM EDT Resulting Agency Comment Spec In Lab Angelito Faria ROBLES HEMATOLOGY ORDERABLES Performing Organization Address City/[facility] [place] [address] documented in this encounter Visit Diagnoses Diagnosis Primary malignant neoplasm of right lowe r lobe of lung Malignant neoplasm of lower lobe, bronch us, or lung documented in this encounter Administered Medications Inactive Administered Medications - up to 3 most recent administrations Medication Order MAR Action Action Date Dose Rate Site BUpivacaine-EPINEPHrine 0.25 Given 12/26/2016 12:30 PM EDT 20 mL s %-1:200,000 injection 20 mL 20 mL (50 mg), Infiltration, ONCE, 1 dose, On Sun12/26/16 at 1245, For use in Interventional Radiology (IR) only for procedural sedation with direct provider supervision and verbal order., Angio/IR (Intra-Procedure), Routine BUpivacaine-EPINEPHrine 0.25 %-1:200,000 injection 1 dose, Starting on Sun12/26/16 at 1227, Until Sun12/26/16 at 1230, BRENDA LOUISE: cabinet override clindamycin (CLEOCIN) 900mg in New Bag 12/26/2016 12:04 PM EDT 900 mg 100 mL/hr dextrose 5% 50mL 900 mg, Intravenous, ONCE, 1 dose, On Sun12/26/16 at 1130, Administer over 30 Minutes, Give over 30-60 minutes. Do not exceed 30mg/minute. Redose every 6 hours if CrCl is greater than 20. Redose every 6 hours if CrCl is less than 20., Day of Surgery (Day of Procedure), Indication for (Active or Suspected): Prophylaxis fentaNYL 50 mcg/mL multi-dose injection Given 12/26/2016 12:56 PM EDT 50 mcg 25-50 mcg, Intravenous, EVERY 5 MIN PRN, Starting on Sun12/26/16 at 1109, Until Sun12/26/16 at 1308, Pain, per unit protocol, - Start dose [...] and verbal order., Angio/IR (Intra-Procedure), Routine Given 12/26/2016 12:34 PM EDT 50 mcg Given 12/26/2016 12:21 PM EDT 50 mcg lidocaine (XYLOCAINE) 10 mg/mL (1 %) Given 12/26/2016 12:44 PM E DT 10 mg injection 10 mg 10 mg, Subcutaneous, ONCE, 1 dose, On Sun12/26/16 at 1130, For use in Interventional Radiology (IR) only for procedure with direct provider supervision and verbal order., Angio/IR (Intra-Procedure), Routine midazolam (PF) (VERSED) 1 mg/mL multi-dose Given 12/26/2016 12:5 6 PM EDT 1 mg injection 0.5-1 mg 0.5-1 mg, Intravenous, EVERY 3 MIN PRN, Starting on Sun12/26/16 at 1109, Until Sun12/26/16 at 1308, Sleep, - Start dose; 1 mg (Reduce [...] and verbal order., Angio/IR (Intra-Procedure), Routine Given 12/26/2016 12:34 PM EDT 1 mg Given 12/26/2016 12:22 PM EDT 1 mg documented in this encounter Care Teams Microphone Boom Operator Relationship Specialty Start Date End Date Fernanda Evans, ROBLES PCP - General Family Medicine 08/14/16 08/26/[address] [place] [address] documented as of this encounter
--- OUTSIDE RECORDS SUMMARY | 2021-11-25 00:30 | XMS_ITS | Encounter Summary ---
:1950 Author Organization [facility] [place] [address] Care Team Providers Name Role Phone NathanFernanda castellanos APRN Primary Care Provider Reason for Visit Reason Comments Lung Cancer Consultation (Routine) - Closed Specialty Diagnoses / Procedures Referred By Contact Refer red To Contact Hematology and Oncology Diagnoses Lung nodule, multiple Lopez Billings MD [facility] Hem Onc Office [address] [place] [address] [phone] Fax: Referral ID Status Reason Start Date Expiration Date Visits V isits Requested Authorized [id number] Closed Consult, 11/06/2016 11/06/2017 1 1 Test & Treat Encounter Details Date Type Department Care Team Description 11/20/2016 Office Visit Hematology/Oncology Lopez Billings Pri mary malignant at [facility] neoplasm of right [address] [place] [address] DR lower [place] [address] [id number] (Wo rk) Social History Tobacco Use Types [...] Sign Reading Time Taken Comments Blood Pressure 114/66 11/20/2016 3:07 PM EDT Pulse 70 11/20/2016 3:07 PM EDT Temperature 36.8 ??C (98.2 ??F) 11/20/2016 3:07 PM EDT Respiratory Rate 18 11/20/2016 3:07 PM EDT Oxygen Saturation 99% 11/20/2016 3:07 PM EDT Inhaled Oxygen Concentration - - Weight 53.6 kg (118 lb 3.2 oz) 11/20/2016 3:07 PM EDT Height 154.8 cm (5' 0.95) 11/20/2016 3:07 PM EDT Body Mass Index 22.37 11/20/2016 3:07 PM EDT documented in this encounter Progress Notes Meagan Harvey RN - 11/20/2016 3:00 PM EDT MEDICAL ONCOLOGY INITIAL NURSING ASSESSMENT ADVANCE DIRECTIVES: In EDH [ ] Has documents [ ] Will bring in [ ] IF NO: Advance Directive pamphlet provided : Y Referral to Care Management : Y PRESENTING SYSTEMS and PATHOLOGY: see MD note REVIEW OF SYSTEMS: see MD note Prior Radiotherapy: no[ x ] Yes[ ]Site Date Facility Prior Chemotherapy: no[ x ] Yes[ ] Drug: Oncologist- LastTreatment NO: YES: Claustrophobia or requires sedation for MRIs X Allergy to CT or MRI contrast agent or iodine or shellfish X Diabetic and on metformin X Metal in body, implanted device, worked with metal, body piercings,braces X Dentures or hearing device X Has upper, but does not wear Pacemaker X Difficulty breathing while lying flat X sometimes Kidney problems/creatinine X Balance difficulty: [ ]no [ x ]yes - Hx of MS At risk for fall: [ ] no [ x ] yes If yes, actions implemented to prevent fall. Patient/family instructed to avoid independent ambulation. Use wheelchair and ask for assistance of staff while in the clinic. ADL [ x ] no limits [ ] needs dressing assistance [ ] needs meal assistance Assistive device:[ x ]none [ ]cane [ ]walker [ ]wheelchair [ ]other: explain Does not want to use any devices at this time PAIN ASSESSMENT: [ 4 ] out of 10 Location: Description: [ x ] Dull [ ] Sharp [ ] Burning [ ] Throbbing [ ] Radiating [ ] Continuous [ x ]Intermittent Aggravating Factors: [ ] Movement [ ] Position [ ]Immobility [ x ]Other -breathing Alleviating Factors: [x ]Medication [ ] Positioning [ ] Other Current Pain Management Plan: [ x ]Satisfied [ ] Not satisfied SOCIAL ASSESSMENT: See ED social assessment information entered. Support Systems: transportation plan: [ x ]private vehicle [ ] RCT needs Social Work referral [ ] Unknown at this time needs Social Work referral Barriers to treatment: none mentioned Referrals/Interventions: SW LEARNING STYLE: Visual and verbal, wants written material and verbal discussion. TEACHING: _x_ [facility]CI ???Chemotherapy and You?? and folder given _x_ Specific chemotherapy literature provided and reviewed with patient Lopez Miles MD - 11/20/2016 3:00 PM EDT Images from the original note were not included. 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 SUBJECTIVE: Divya comes in today for medical Oncology consultation at the request of Dr. Wang in regards to her recently diagnosed adenocarcinoma of the lung. She developed increasing cough and shortness of breath which led to an x-ray, some brief treatment with some antibiotics and when things did not get better, ultimately a CT scan that showed a mass. Subsequently she underwent a bronchoscopy and had several lymph nodes biopsied with pathology indicating a primary adenocarcinoma of the lung. Unfortunately subsequent PET scanning showed she had stage IV disease with several lymph nodes involved and bony metastases as well (please see enclosed PET scan reviewed). Currently the patient does know her diagnosis. She has her usual problems with shortness of breath and fatigue but has not noticed any particular weight loss. She is having no hemoptysis. She is comfortable on room air as far as her breathing goes. We spent today going over her x-ray and pathology results in detail and discussing recommendations for systemic treatment with chemotherapy and immunotherapy. She is here today with her and I believe all of her questions were answered. She has successfully cut down to 1-2 cigarettes a day and is hopeful to be able to quit in the near future. Her , however, does continue to smoke and we discussed smoking cessation some with him as well today. Past Medical History: Diagnosis Date ??? GERD (gastroesophageal reflux disease) ??? IBS (irritable bowel syndrome) ??? Lung cancer, primary, with metastasis from lung to other site ??? Multiple sclerosis ??? SVT (supraventricular tachycardia) Past Surgical History: Procedure Laterality Date ??? APPENDECTOMY 2007 ??? INGUINAL HERNIA REPAIR 1994 ??? [facility] EBUS GUIDED SAMPL 1/2 NODE STATION/STRUX N/A 10/19/2016 BRONCH, W ENDOBRONCHIAL ULTRASOUND (EBUS) GUIDED SAMPLING, 1/2 NODES (WRVU 4.71) performed by Tunde Wang MD at [facility] MAIN OR ??? PRO COLONOSCOPY, BIOPSY N/A 12/21/2014 COLONOSCOPY FLEXIBLE, WITH BX performed by Joaquin Freeman MD at [facility] ENDOSCOPY ??? PRO UPPER GI ENDOSCOPY, DIAGNOSTIC N/A 10/19/2016 ENDOSCOPY, UPPER GI, DIAGNOSTIC, WITH OR WITHOUT SPECIMENS performed by Tunde Wang MD at [facility] MAIN OR ??? MARCO AND BSO 1989 ??? TONSILLECTOMY Allergies Allergen Reactions ??? Bee Sting [Hymenoptera Allergenic Extract] Anaphylaxis ??? Contrast [Iodine And Iodide Containing Products] Hives, Shortness Of Breath, Itching and Palpitations ??? Naproxen ??? Penicillins ??? Sulfa (Sulfonamide Antibiotics) Current Outpatient Prescriptions on File Prior to Visit Medication Sig Dispense Refill ??? acetaminophen (TYLENOL) 500 mg Tablet Take 2 tablets by mouth every 6 hours as needed for Pain. ??? buPROPion (WELLBUTRIN XL) 300 mg Tablet Extended Release 24 hr take 1 tablet by mouth once daily0 ??? clonazePAM (KLONOPIN) 1 mg Tablet ??? atenolol (TENORMIN) 50 mg Tablet ??? EPINEPHrine 0.3 mg/0.3 mL Auto-Injector Reported [...] normal, no drainage or sinus tenderness Throat: Lips, mucosa, and tongue normal; teeth and gums normal Neck: Supple, symmetrical, trachea midline, no adenopathy, [...] or edema Pulses: 2+ and symmetric Skin: Skin color, texture, turgor normal, no rashes or lesions Lymph nodes: Cervical, supraclavicular, and axillary nodes normal Neurologic: Normal ?Non-Vault Maker Final DIAGNOSIS Positive for Malignancy Electronically signed by: ??Alina LUNA, Herbert Johnson Verified: ??10/21/2016 ?Cytopathologist DISCUSSION Lymph node: level 7 (EBUS-guided FNA) - Compatible with adenocarcinoma. The tumor cells resemble those present in the concurrent level 10L lymph node FNA. ? Molecular Genetics RESULTS Please refer to Cytopathology Report [id number] for final pathology diagnosis. INDICATION FOR STUDY: ?? Lymph node, level 7 (EBUS-guided FNA) - Compatible with ??adenocarcinoma SPECIMEN ANALYZED: ?? -[id number] A1 Analysis: ??Examination of DNA extracted from formalin-fixed paraffin-embedded tumor ??tissue for somatic mutation analysis. Results: ??The following gene variants were identified in the submitted tissue: CLINICALLY ACTIONABLE VARIANTS: BRAF: ??NEGATIVE EGFR: ??NEGATIVE KRAS: ??MUTATION c.34G> T p.G12C Exon 2 PIK3CA: ??NEGATIVE OTHER DETECTED VARIANTS: N/A Interpretation: ?? After review of the pathology report and slides, the specimen ??([id number]) was selected for mutation analysis from [...] ?? TECHNIQUE: Procedure: Following IV injection of 05-eubltp-8-deoxyglucose (FDG) a standard uptake of approximately 60 [...] by: ??Hermelindo Whitley MD Verified: ??10/24/2016 ?Pathologist ASSESSMENT/PLAN: The patient has a Motor Vehicle Technician-negative adenocarcinoma of the lung with multiple sites of metastases. She is relatively symptom free at this point. We discussed primary treatment with pembrolizumab, Carboplatin and Ellipta today and went over risks and side effects. We did chemotherapy teaching and patient left with a good understanding of things in general. We called in prescriptions for folic acid and she will get a B12 shot at the start of treatment tomorrow. We also made sure she had some Compazine on hand for antiemetics. She does very much wish to start treatment sooner rather than later, and we should be able to start treatment in the morning tomorrow. We discussed doing a followup PET scan in 3 months to look for response. We also discussed potential side effects and the need to take high-dose steroids if she were to develop any autoimmune problems in regards to the pembrolizumab. We have arranged for her to have lab following today's visit and we will see her in the morning to start treatment. She did ask some good questions today as far as prognosis goes. It is really quite variable and would depend on response of treatment but if she did have a meaningful response, she could have a significant time that her tumor remains under control. Some patients, however, fail to respond and then life expectancy would be short. At this point, however, it is difficult to pin down an exact prognosis other than this cancer is not considered curable. documented in this encounter Plan of Treatment Upcoming Encounters Date Type Specialty Care Team Description 11/28/2021 Hospital Encounter Radiology Harlan Parmar MD [facility] DR HEMATOLOGY/ONCOLOGY DEPT. [place], [place] [address] (Wo rk) 11/28/2021 Appointment Radiology Harlan Parmar M D [facility] DR HEMATOLOGY/ONCOLOGY DEPT. [place], [place] [address] (Wo rk) 12/01/2021 Office Visit Hematology and Oncology Harlan Parmar MD [facility] DR HEMATOLOGY/ONCOLOGY DEPT. [place], [place] [address] (Wo rk) documented as of this encounter Procedures Procedure Name Priority Date/Time Associated Diagnosis Comme nts LAB SCAN 11/20/2016 12:00 AM Results for this EDT procedure are i n the results section . documented in this encounter Results SCAN DOC: LAB (11/20/2016 12:00 AM EDT) Narrative 11/20/2016 12:00 AM EDT This result has an attachment that is no t available. Ordered by an unspecified provider. Scanning Provider MEDIA MGR SCAN EXT ORDR/RSLT documented in this encounter Visit Diagnoses Diagnosis Primary malignant neoplasm of right lowe r lobe of lung Malignant neoplasm of lower lobe, bronch us, or lung documented in this encounter Care Teams Display Carver Relationship Specialty Start Date End Date Fernanda Evans APRN PCP - General Family Medicine 08/14/16 08/26/[address] [place] [address] documented as of this encounter
--- OUTSIDE RECORDS SUMMARY | 2021-11-25 00:30 | XMS_ITS | Encounter Summary ---
:1950 Author Organization [facility] [place] [address] Care Team Providers Name Role Phone Nathan Fernanda Mobley APRN Primary Care Provider Reason for Visit Reason Onset Date Comments Questions 01/26/2017 Medication dosing Encounter Details Date Type Department Care Team Description 01/26/2017 Telephone Hematology Oncology at [facility] Anne Q uestions (Medication [facility] RN dosing) [address] [place] [phone] Social History Tobacco Use Types Packs/Day [...] Telephone Encounter - Erika Anne RN - 01/26/2017 9:55 AM EDT Divya called this morning to let us know that she is inpatient with high fevers. Dr. Billings aware. Divya also wanted to know the dose of her Folic Acid- documented in this encounter Plan of Treatment Upcoming Encounters Date Type Specialty Care Team Description 11/28/2021 Hospital Encounter Radiology Harlan Parmar MD [facility] HEMATOLOGY/ONCOLOGY DEPT. [place], [place] [address] (Wo rk) 11/28/2021 Appointment Radiology Harlan Parmar M D [facility] HEMATOLOGY/ONCOLOGY DEPT. [place], [place] [address] (Kai fermin) 12/01/2021 Office Visit Hematology and Oncology Harlan Parmar MD [facility] HEMATOLOGY/ONCOLOGY DEPT. [place], [place] [address] (Kai fermin) documented as of this encounter Visit Diagnoses Not on filedocumented in this encounter Care Teams Manager Fund Relationship Specialty Start Date End Date Fernanda Evans APRN PCP - General Family Medicine 08/14/16 08/26/[address] [place] [address] documented as of this encounter
--- OUTSIDE RECORDS SUMMARY | 2021-11-25 00:30 | XMS_ITS | Encounter Summary ---
:1950 [place] [address] Care Team Providers Name Role Phone Nathan, Fernanda Mobley APRN Primary Care Provider Encounter Details Date Type Department Care Team Description 12/26/2016 Laboratory Appointment Lab 3L [facility] [place] [phone] Social History Tobacco Use Types Packs/Day [...] 11/28/2021 Hospital Encounter Radiology Harlan Parmar MD [facility] DR HEMATOLOGY/ONCOLOGY DEPT. [place], [place] [address] (Kai fermin) 11/28/2021 Appointment Radiology Harlan Parmar M D [facility] DR HEMATOLOGY/ONCOLOGY DEPT. [place], [place] [address] (Kai fermin) 12/01/2021 Office Visit Hematology and Oncology Harlan Parmar MD [facility] HEMATOLOGY/ONCOLOGY DEPT. [place], [place] [address] (Kai fermin) documented as of this encounter Visit Diagnoses Not on filedocumented in this encounter Care Teams Baggage Security Checker Relationship Specialty Start Date End Date Fernanda Evans APRN PCP - General Family Medicine 08/14/16 08/26/[address] [place] [address] documented as of this encounter
--- OUTSIDE RECORDS SUMMARY | 2021-11-25 00:30 | XMS_ITS | Encounter Summary ---
:1950 Author Organization [facility] [place] [address] Care Team Providers Name Role Phone Nathan Fernanda Mobley APRN Primary Care Provider Encounter Details Date Type Department Care Team Description 03/20/2017 Telephone Care Management Huong Thomas, DOOR FITTER [facility] [place] [address] Social History Tobacco Use Types Packs/Day [...] encounter Miscellaneous Notes Telephone Encounter - Huong Thomas, DOOR FITTER - 03/20/2017 1:55 PM EST Continuing Continuous Mining Machine [employer] Miner - Social Work Note: DOOR FITTER received phone call from Morelia Narvaez at [facility] regarding pt financial assistance. Pt in need of assistance with prescription medication costs (specific prescriptions that are costly are not known). Morelia calling to inquire what financial assistance/grants we have assisted pt withalready. Pt has received [employer] debbie ($300), [facility] debbie ($700), and [facility] debbie ($255). Pt has $245through [facility] debbie remaining. Pt has also [facility] Plan: -Morelia to speak with pt about particular medications that are costly; DOOR FITTER can make Medication Assistance Program referral as needed. -DOOR FITTER can facilitate application to [facility] for remaining $245, as needed I am available for ongoing support and resource referral, as needed Pager [phone] documented in this encounter Plan of Treatment Upcoming Encounters Date Type Specialty Care Team Description 11/28/2021 Hospital Encounter Radiology Harlan Parmar MD [facility] DR HEMATOLOGY/ONCOLOGY DEPT. [place], [place] [address] (Wo rk) 11/28/2021 Appointment Radiology Harlan Parmar M D [facility] DR HEMATOLOGY/ONCOLOGY DEPT. [place], [place] [address] (Wo rk) 12/01/2021 Office Visit Hematology and Oncology Harlan Parmar MD [facility] DR HEMATOLOGY/ONCOLOGY DEPT. [place], [place] [address] (Wo rk) documented as of this encounter Visit Diagnoses Not on filedocumented in this encounter Care Teams Railroad Dining Car Steward/Stewardess Relationship Specialty Start Date End Date Fernanda Evans APRN PCP - General Family Medicine 08/14/16 08/26/[address] [place] [address] documented as of this encounter
--- OUTSIDE RECORDS SUMMARY | 2021-11-25 00:30 | XMS_ITS | Encounter Summary ---
:1950 Author Organization [facility] [place] [address] Care Team Providers Name Role Phone Nathan Fernanda Mobley APRN Primary Care Provider Reason for Visit Reason Comments Chemotherapy Cycle 4 day 1 Treatment/Therapy Plan Authorization (Routine) - Closed Specialty Diagnoses / Procedures Referred By Contact Refer red To Contact Diagnoses Primary malignant neoplasm of right lower lobe of lung Lopez Billings MD [facility] Hem Onc Office Procedures TC CARBOPLATIN, 50MG, INJECTION (PARAPLATIN) TC PEMETREXED, 10MG, INJECTION (ALIMTA) TC FOSAPREPITANT, 1MG, INJECTION (EMEND) TC PALONOSETRON HCL, 25MCG, INJECTION (ALOXI) [id number] [address] [place] [phone] Phone: Fax: Referral ID Status Reason Start Date Expiration Date Visits Requ ested Visits Authorized [id number] Closed 11/22/2016 02/13/2018 8 8 Encounter Details Date Type Department Care Team Description 01/23/2017 Infusion Hematology Oncology at [facility] malignant neoplasm [facility] of right lower lobe of lung [address] [place] [phone] Social History Tobacco Use Types Packs/Day Years Used Date Current Every Day Smoker Cigarettes 2 52 Smokeless Tobacco: Never Used Comments: 3 cigarettes a day for last 25 years Alcohol Use Standard Drinks/Week Comments No 0 (1 standard drink = 0.6 oz pure alcoho l) Sex Assigned at Date Recorded Female 07/30/2020 4:21 AM EDT documented as of this encounter Progress Notes Erika Anne RN - 01/23/2017 11:00 AM EDT INFUSION THERAPY ADMINISTRATION NOTES DIAGNOSIS: NSCLC CYCLE #: 4 Day 1 REASON FOR VISIT: pembrolizumab, alimta, carboplatin SUBJECTIVE: Divya offers no complaints. OBJECTIVE: VSS. Weight stable. Seen by provider LAB DATA: WNL, reviewed by Dr. Billings IV ACCESS: port accessed off site, flushes readily with brisk blood return. Pre administration: Chemotherapy orders independently verified for drug name, route, and dosage per patient's height, weight and BSA by Erika Anne RN and Vanessa Whitmore [facility] REACTIONS (DESCRIPTION, TIME, INTERVENTION AND EFFECTIVENESS) none ASSESSMENT: Divya was awake, alert and tolerated treatment well. Port flushed with 20 cc of NS and 500 units of heparin and de-accessed. PLAN: Return to clinic per routine. documented in this encounter Plan of Treatment Upcoming Encounters Date Type Specialty Care Team Description 11/28/2021 Hospital Encounter Radiology Harlan Parmar MD [facility] HEMATOLOGY/ONCOLOGY DEPT. [place], [place] [address] (Kai fermin) 11/28/2021 Appointment Radiology Harlan Parmar M D [facility] HEMATOLOGY/ONCOLOGY DEPT. [place], [place] [address] (Kai fermin) 12/01/2021 Office Visit Hematology and Oncology Harlan Parmar MD [facility] HEMATOLOGY/ONCOLOGY DEPT. [place], [place] [address] (Kai fermin) documented as of this encounter Visit Diagnoses Diagnosis Primary malignant neoplasm of right lowe r lobe of lung Malignant neoplasm of lower lobe, bronch us, or lung documented in this encounter Administered Medications Inactive Administered Medications - up to 3 most recent administrations Medication Order MAR Action Action Date Dose Rate Site CARBOplatin (PARAPLATIN) 342 New Bag 01/23/2017 2:21 PM EDT 342 mg 568 mL/hr mg in dextrose 5% 284.2 mL chemo infusion 342 mg (rounded from 341.5 mg, Target AUC = 5), Intravenous, ONCE, 1 dose, On Sun01/23/17 at 1315, Administer over 30 Minutes, Hold Parameters: CARBOplatin, Call provider for serum creatinine less than (mg/dL): .2, Call provider for serum creatinine greater than (mg/dL): 2, External serum creatinine results used to calculate dose? Yes, Enter serum creatinine value (mg/dL): 1.11, Enter serum creatinine result date: 01/23/2017 cyanocobalamin (vitamin B-12) injection Given 01/23/2017 12: 10 PM EDT 1,000 mcg 1,000 mcg 1,000 mcg, Subcutaneous, ONCE, 1 dose, On Sun01/23/17 at 1215, Administer prior to PEMEtrexed. Confirm last date of Vitamin B12 administration., Routine dexamethasone (DECADRON) injection 10 mg Given 01/23/2017 12:14 PM EDT 10 mg 10 mg, Intravenous, ONCE, 1 dose, On Sun01/23/17 at 1215, Administer after pembrolizumab and before PEMEtrexed and CARBOplatin. fosaprepitant (EMEND) 150 mg in New Bag 01/23/2017 12:40 PM ED T 150 mg 310 mL/hr sodium chloride 0.9% 155 mL infusion 150 mg, Intravenous, at 310 mL/hr, ONCE, 1 dose, On Sun01/23/17 at 1215, Routine palonosetron (ALOXI) injection 0.25 mg Given 01/23/2017 12:17 PM EDT 0.25 mg 0.25 mg, Intravenous, ONCE, 1 dose, On Sun01/23/17 at 1215, Administer over 30 seconds., Routine pembrolizumab (KEYTRUDA) 200 mg in New Bag 01/23/2017 1:15 PM EDT 200 mg 216 mL/hr sodium chloride 0.9% 108 mL infusion 200 mg, Intravenous, ONCE, 1 dose, On Sun01/23/17 at 1315, Administer over 30 Minutes, Flush line with NS after each dose. NO DOSE ADJUSTMENTS. For outpatient use only., This is a restricted medication. Is this being used for an FDA approved indication? Yes, This agent is restricted to outpatient use. Is this drug being given as an outpatient? Yes PEMEtrexed (ALIMTA) 760 mg in New Bag 01/23/2017 2:08 PM EDT 760 m g 782 mL/hr sodium chloride 0.9% 130.4 mL chemo infusion 760 mg (500 mg/m2/dose ? 1.52 m2 Treatment Plan BSA from Recorded weight), Intravenous, ONCE, 1 dose, On Sun01/23/17 at 1315, Administer over 10 Minutes, Incompatable with calcium containing IV products documented in this encounter Care Teams Underwriter Relationship Specialty Start Date End Date Fernanda Evans APRN PCP - General Family Medicine 08/14/16 08/26/[address] [place] [address] documented as of this encounter
--- OUTSIDE RECORDS SUMMARY | 2021-11-25 00:30 | XMS_ITS | Encounter Summary ---
:1950 Author Organization [facility] [place] [address] Care Team Providers Name Role Phone Fernanda Evans APRN Primary Care Provider Encounter Details Date Type Department Care Team Description 11/06/2016 Notes Only Care Management Huong Thomas, [facility] [place] [address] CARE MANAGEMENT [phone] Social History Tobacco Use Types Packs/Day Years Used Date Current Every Day Smoker Cigarettes 2 52 Smokeless Tobacco: Never Used Comments: 3 cigarettes a day for last 25 years Sex Assigned at Date Recorded Female 07/30/2020 4:21 AM EDT documented as of this encounter Progress Notes Huong Thomas, SADDLE STITCHER - 11/06/2016 4:50 PM EDT Continuing It Programmer - Social Work Assessment Patient Info: 65yo female with diagnosis of lung cancer, likely Stage IV. Present at Interview: Patient, her (Balbir), and daughter (Yuli) 1. Reason For Visit: [facility] referral for assessment, resource referral, and support 2. Family Constellation: Pt is to Balbir, has daughter Yuli. 3. Patients Understanding/Adjustment to Illness: Pt here today to review pathology results and learnmore about plan of care. Pt understands that she has cancer, but plan of care is still evolving. Pt likely to follow-up in [facility] for treatment. 4. Current Social Support: Pt's and daughter are primary sources of support 5. Current Living situation/Town of Residence: Pt lives with her in a trailer in [place], [place]. Pt reports that it can be difficult to get around in the trailer, as pt has MS as well. She is concerned that she will need a scooter or wheelchair at some point and recognizes that the doorways in her current home aren't wide enough to support this. Pt and her have been looking to move, though they do not have a concrete plan at this time. 6. Access to Transportation: Pt's family available to assist with transportation 7. Chemical Abuse or other abuse: Pt is current every day smoker. 8. Patient/Family Mental Health Concerns: None assessed/reported 9. Financial Concerns: Pt has limited income ($300/month) social security disability. Pt's spouse isalso receiving fixed SSD income. They receive $16/month in food stamps. SADDLE STITCHER provided pt with [facility] debbie applications and reviewed with pt. Pt to complete and return to - likely in [facility], as that is where pt will get follow-up care/treatment. 10. Insurance/Prescription Coverage: Pt has Medicare part A only and [employer]. She has applied for financial assistance, which is still pending at this time. 11. Legal Concerns: None reported 12. Advance Directive: None on file. Pt's spouse would be surrogate decision- maker, by law, in absence of document 13. Employment: disability Plan: [employer] provided pt with financial assistance/debbie applications. Pt to review, complete, and return to with bills she is seeking assistance in paying. I am available for ongoing support and assistance. Pager #[phone] documented in this encounter Plan of Treatment Upcoming Encounters Date Type Specialty Care Team Description 11/28/2021 Hospital Encounter Radiology Harlan Parmar MD [facility] HEMATOLOGY/ONCOLOGY DEPT. [place], [place] [address] (aKi fermin) 11/28/2021 Appointment Harlan Tracy M D [facility] HEMATOLOGY/ONCOLOGY DEPT. [place], [place] [address] (Kai fermin) 12/01/2021 Office Visit Hematology and Oncology Harlan Parmar MD [facility] HEMATOLOGY/ONCOLOGY DEPT. [place], [place] [address] (Wo rk) documented as of this encounter Visit Diagnoses Not on filedocumented in this encounter Care Teams Mold Sprayer Relationship Specialty Start Date End Date Fernanda Evans APRN PCP - General Family Medicine 08/14/16 08/26/[address] [place] [address] documented as of this encounter
--- OUTSIDE RECORDS SUMMARY | 2021-11-25 00:30 | XMS_ITS | Encounter Summary ---
:1950 Author Organization [facility] [place] [address] Care Team Providers Name Role Phone Nuha Evanscarlos eduardo Mobley APRN Primary Care Provider Encounter Details Date Type Department Care Team Description 12/22/2016 [facility] [place] [phone] Social History Tobacco Use Types Packs/Day [...] Telephone Encounter - Erika Anne RN - 12/22/2016 12:39 PM EDT Call rec'd from patient complaining of chronic hip pain, and wondering if she could take anything for it. Patient encouraged to take tylenol and see if that helped. Patient was worried about taking tylenol as chemo instructions said not to. Patient was encouraged to take temperature prior to tylenol and call for temp over 100.4. Patient states understanding. documented in this encounter Plan of Treatment Upcoming Encounters Date Type Specialty Care Team Description 11/28/2021 Hospital Encounter Radiology Harlan Parmar MD [facility] DR HEMATOLOGY/ONCOLOGY DEPT. [place], [place] [address] (Wo rk) 11/28/2021 Appointment Radiology Harlan Parmar M D [facility] DR HEMATOLOGY/ONCOLOGY DEPT. [place], [place] [address] (Wo rk) 12/01/2021 Office Visit Hematology and Oncology Harlan Parmar MD [facility] DR HEMATOLOGY/ONCOLOGY DEPT. [place], [place] [address] (Wo rk) documented as of this encounter Visit Diagnoses Not on filedocumented in this encounter Care Teams Flagman Relationship Specialty Start Date End Date Fernanda Evans APRN PCP - General Family Medicine 08/14/16 08/26/[address] [place] [address] documented as of this encounter
--- OUTSIDE RECORDS SUMMARY | 2021-11-25 00:30 | XMS_ITS | Encounter Summary ---
:1950 Author Organization [facility] [place] [address] Care Team Providers Name Role Phone Fernanda Evans APRN Primary Care Provider Reason for Visit Reason Onset Date Comments Rash 12/01/2016 Encounter Details Date Type Department Care Team Description 12/01/2016 Telephone Hematology/Oncology at Mela Jane RN [place] [phone] Social History Tobacco Use Types Packs/Day [...] Telephone Encounter - Mela Jane RN - 12/01/2016 3:52 PM EDT Regarding: Please Call about rash Claudine called and wanted to talk to you about the side effects of her chemo/ the steroids she is on. Patient has a rash Dr. Billings aware. Patient expresses concern that the steroids ordered make her too hyper. She stated the triamcinolone lotion helped and soothed. Perlita Vargas APRN was consulted and sheadvised patient stop the medrol dose pack and continue with triamcinolone lotion and benadryl prn. Refills have been sent. Patient returns instructions and is aware there are refills if needed and to call the [facility] after hours and weekends number for any further questions or concerns. documented in this encounter Plan of Treatment Upcoming Encounters Date Type Specialty Care Team Description 11/28/2021 Hospital Encounter Radiology Harlan Parmar MD [facility] DR HEMATOLOGY/ONCOLOGY DEPT. [place], [place] [address] (Wo rk) 11/28/2021 Appointment Radiology Harlan Parmar M D [facility] HEMATOLOGY/ONCOLOGY DEPT. [place], [place] [address] (Wo rk) 12/01/2021 Office Visit Hematology and Oncology Harlan Parmar MD [facility] HEMATOLOGY/ONCOLOGY DEPT. [place], [place] [address] (Wo rk) documented as of this encounter Visit Diagnoses Not on filedocumented in this encounter Care Teams Wire Worker Relationship Specialty Start Date End Date Fernanda Evans APRN PCP - General Family Medicine 08/14/16 08/26/[address] [place] [address] documented as of this encounter
--- OUTSIDE RECORDS SUMMARY | 2021-11-25 00:30 | XMS_ITS | Encounter Summary ---
:1950 Author Organization [facility] [address] Care Team Providers Name Role Phone Nathan Fernanda Mobley APRN Primary Care Provider Reason for Visit Reason Onset Date Comments Diarrhea 02/13/2017 Encounter Details Date Type Department Care Team Description 02/13/2017 [facility] RN [address] [place] [phone] Social History Tobacco Use Types [...] Miscellaneous Notes Telephone Encounter - Kayce Donaldson I RN - 02/13/2017 9:21 AM EST Received Edh message from clinical executive secretary ?? Claudine's called, and would like you to call him. He said she has really bad diarrhea. She has an appt with Dr. Billings today, but is trying to cancel. Spoke with patient's who reports that she has completed the antibiotic ordered for C-Diff. Continues to have 10 loose stools a day. Does not feel that she can come in today for her appt with Dr Billings, Would like to reschedule her appt To next week. Discussed with Alex Billings. Diarrhea may be due to Pembrolizumab. Should start prednisone 60 mg daily. in agreement with plan and will call with further problems.Will mixing picker tender the Prednisone today. documented in this encounter Plan of Treatment Upcoming Encounters Date Type Specialty Care Team Description 11/28/2021 Hospital Encounter Radiology Harlan Parmar MD [facility] DR HEMATOLOGY/ONCOLOGY DEPT. [place], [place] [address] (Wo rk) 11/28/2021 Appointment Radiology Harlan Parmar M D [facility] DR HEMATOLOGY/ONCOLOGY DEPT. [place], [place] [address] (Wo rk) 12/01/2021 Office Visit Hematology and Oncology Harlan Parmar MD [facility] DR HEMATOLOGY/ONCOLOGY DEPT. [place], [place] [address] (Wo rk) documented as of this encounter Visit Diagnoses Not on filedocumented in this encounter Care Teams Moccasin Sewer Relationship Specialty Start Date End Date Fernanda Evans APRN PCP - General Family Medicine 08/14/16 08/26/[address] [place] [place] [address] documented as of this encounter
--- OUTSIDE RECORDS SUMMARY | 2021-11-25 00:30 | XMS_ITS | Encounter Summary ---
:1950 Author Organization [facility] [place] [address] Care Team Providers Name Role Phone Nathan Fernanda Mobley APRN Primary Care Provider Encounter Details Date Type Department Care Team Description 04/09/2017 Office Visit Hematology/Oncology Lopez Billings, Ashlyn aldana malignant neoplasm of right lower lobe of lung; at [facility] Clostridium difficile colitis [address] [facility] [place] [address] [phone] (Wo rk) Social History Tobacco Use Types [...] Sign Reading Time Taken Comments Blood Pressure 119/61 04/09/2017 10:35 AM EST standing Pulse 73 04/09/2017 10:35 AM EST standing Temperature 36.5 ??C (97.7 ??F) 04/09/2017 10:30 AM EST Respiratory Rate 22 04/09/2017 10:30 AM EST Oxygen Saturation 100% 04/09/2017 10:30 AM EST Inhaled Oxygen Concentration - - Weight 51.3 kg (113 lb) 04/09/2017 10:30 AM EST Height 164.8 cm (5' 4.88) 04/09/2017 10:30 AM EST copi ed Body Mass Index 18.87 04/09/2017 10:30 AM EST documented in this encounter Progress Notes Lopez Billings MD - 04/09/2017 10:30 AM EST Images from the original note were not included. 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 She is now successfully tapered down to 20 mg of prednisone daily but does have a fair amount of lightheadedness when she stands up. Her diarrhea, however, is completely resolved and she is not having that difficulty at all. She notes her balance is a bit off as well. That has been the case in the past with her multiple sclerosis and she was in the process of being reevaluated for that when her lung cancer was found, so has not kept up any followup on that. We talked about the high likelihood that her orthostatic symptoms are related to her steroid taper. At this point, I would like to slow down the taper from 10 mg a week down to 5 a week and hopefully that will help with those orthostatic changes. She is being careful when she gets up. Past Medical History: Diagnosis Date ??? GERD (gastroesophageal reflux disease) ??? IBS (irritable bowel syndrome) ??? Lung cancer, primary, with metastasis from lung to other site ??? Multiple sclerosis ??? SVT (supraventricular tachycardia) Past Surgical History: Procedure Laterality Date ??? APPENDECTOMY 2007 ??? INGUINAL HERNIA REPAIR 1994 ??? PRO [facility] EBUS GUIDED SAMPL 1/2 NODE STATION/STRUX N/A 10/19/2016 BRONCH, W ENDOBRONCHIAL ULTRASOUND (EBUS) GUIDED SAMPLING, 1/2 NODES (WRVU 4.71) performed by Tunde Wang MD at [facility] MAIN OR ??? PRO COLONOSCOPY, BIOPSY N/A 12/21/2014 COLONOSCOPY FLEXIBLE, WITH BX performed by Joaquin Freeman MD at [facility] ENDOSCOPY ??? PRO UPPER GI ENDOSCOPY, DIAGNOSTIC N/A 10/19/2016 ENDOSCOPY, UPPER GI, DIAGNOSTIC, WITH OR WITHOUT SPECIMENS performed by Tunde Wang MD at [facility] MAIN OR ??? MARCO AND [...] to Visit Medication Sig Dispense Refill ??? [DISCONTINUED] predniSONE (DELTASONE) 20 mg Tablet Take 2 tablets by mouth daily. (Patient taking differently: Take 20 mg by mouth daily. Taking 1 1/2 tabs daily) 60 tablet 0 ??? folic acid (FOLVITE) 1 [...] ??? atenolol (TENORMIN) 50 mg Tablet ??? diaZEPam (VALIUM) 5 mg Tablet Take [...] taking: Reportedon 03/06/2017) 7 tablet 0 ??? prochlorperazine (COMPAZINE) 10 mg Tablet Take 1 tablet by mouth every 6 hours as needed for Nausea. (Patient not taking: Reported on 03/06/2017) 30 tablet 1 ??? EPINEPHrine 0.3 mg/0.3 [...] supraclavicular, and axillary nodes normal Neurologic: Normal ?Non-Sample Selector Final DIAGNOSIS Positive for Malignancy Electronically signed by: ??Herbert Fuller MD Verified: ??10/21/2016 ?Cytopathologist DISCUSSION Lymph node: level 7 (EBUS-guided FNA) - Compatible with adenocarcinoma. The tumor cells resemble those present in the concurrent level 10L lymph node FNA. ? Molecular Genetics RESULTS Please refer to Cytopathology Report [id number] for final pathology diagnosis. INDICATION FOR STUDY: ?? Lymph node, level 7 (EBUS-guided FNA) - Compatible with ??adenocarcinoma SPECIMEN ANALYZED: ?? 3 A1 Analysis: ??Examination of DNA extracted from formalin-fixed paraffin-embedded tumor ??tissue for somatic mutation analysis. Results: ??The following gene variants were identified in the submitted tissue: CLINICALLY ACTIONABLE VARIANTS: BRAF: ??NEGATIVE EGFR: ??NEGATIVE KRAS: ??MUTATION c.34G> T p.G12C Exon 2 PIK3CA: ??NEGATIVE OTHER DETECTED VARIANTS: N/A Interpretation: ?? After review of the pathology report and slides, the specimen ??(-3 A1) was selected for mutation analysis from [...] ?? 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 We will go ahead and put her on 15 mg of prednisone for a week, then 10 mg for a week, then 5 mg a day. I will see her back after she has been on 5 mg for a while and then make a decision based on how she is doing as to whether to stop the steroid at that point or change to every other day treatment. We talked about restaging her in a few more months as well. If she continues to have TOW TRUCK DRIVER symptoms I would favor doing a CT scan of her head. She is unable to do MRI studies because of severe claustrophobia. I also suggested that she check in with her neurologist as far as her MS goes, as it seems some of her symptoms may be more likely related to that. She will let us know if there is issues or changes in the interim and her steroid prescriptions are called in today. documented in this encounter Plan of Treatment Upcoming Encounters Date Type Specialty Care Team Description 11/28/2021 Hospital Encounter Radiology Harlan Parmar MD [facility] HEMATOLOGY/ONCOLOGY DEPT. [place], [place] [address] (Wo rk) 11/28/2021 Appointment Radiology Harlan Parmar M D [facility] HEMATOLOGY/ONCOLOGY DEPT. [place], [place] [address] (Wo rk) 12/01/2021 Office Visit Hematology and Oncology Harlan Parmar MD [facility] HEMATOLOGY/ONCOLOGY DEPT. [place], [place] [address] (Wo rk) documented as of this encounter Visit Diagnoses Diagnosis Primary malignant neoplasm of right lowe r lobe of lung Malignant neoplasm of lower lobe, bronch us, or lung Clostridium difficile colitis Intestinal infection due to clostridium difficile documented in this encounter Care Teams Tank Car Inspector Relationship Specialty Start Date End Date Fernanda Evans APRN PCP - General Family Medicine 08/14/16 08/26/19 [address] [place] [address] documented as of this encounter
--- OUTSIDE RECORDS SUMMARY | 2021-11-25 00:30 | XMS_ITS | Encounter Summary ---
:1950 Author Organization [facility] [place] [address] Care Team Providers Name Role Phone Fernanda Evans APRN Primary Care Provider Reason for Visit Reason Onset Date Comments Diarrhea 02/14/2017 Encounter Details Date Type Department Care Team Description 02/14/2017 Telephone Hematology[facility]Oncology at [facility] Diarrhea [place] RN [address] [place] [phone] Social History Tobacco Use Types [...] Telephone Encounter - Kayce Donaldson RN - 02/14/2017 9:03 AM EST Spoke with patient who reports that the diarrhea has subsided. Had a formed bowel movement this am. Reviewed importance of hydration. Patient has a smoothie with a banana in it every am. Drinking water. No nausea or vomiting Encouraged patient to call with any other problems. Dr Billings notified. Patient needs to continue Prednisone until I see her next week. Patient verbalizes understanding, is in agreement and knows can call clinic / with questions or concerns. documented in this encounter Plan of Treatment Upcoming Encounters Date Type Specialty Care Team Description 11/28/2021 Hospital Encounter Radiology Harlan Parmar MD [facility] DR HEMATOLOGY/ONCOLOGY DEPT. [place], [place] [address] (Wo rk) 11/28/2021 Appointment Radiology Harlan Parmar M D [facility] HEMATOLOGY/ONCOLOGY DEPT. [place], [place] 0[address] (Wo rk) 12/01/2021 Office Visit Hematology and Oncology Harlan Parmar MD [facility] HEMATOLOGY/ONCOLOGY DEPT. [place], [place] [address] (Wo rk) documented as of this encounter Visit Diagnoses Not on filedocumented in this encounter Care Teams It Manager Relationship Specialty Start Date End Date Fernanda Evans APRN PCP - General Family Medicine 08/14/16 08/26/[address] [place] [place] [address] documented as of this encounter
--- OUTSIDE RECORDS SUMMARY | 2021-11-25 00:30 | XMS_ITS | Encounter Summary ---
:1950 Author Organization [facility] [place] [address] Care Team Providers Name Role Phone Nuha Evanscarlos eduardo Mobley APRN Primary Care Provider Encounter Details Date Type Department Care Team Description 01/19/2017 Telephone Care Management Huong Thomas, MACHINE WELT BUTTER [facility] [place] [phone] Social History Tobacco Use Types Packs/Day [...] Telephone Encounter - Huong Thomas MSW - 01/19/2017 5:07 PM EDT Continuing Project Scheduler - Social Work Note: MACHINE WELT BUTTER received confirmation that pt was approved for [facility] [employer], as follows: On behalf of the [employer], we are pleased to inform you that Divya Lucas has been selected as a financial assistance recipient. The Foundation has sent a check(s) to the patient for the following fund(s). Note: This check(s) MUST BE MAILED to the payee for the patient to receive credit to their account(s). This check(s) can not be negotiated electronically. Attempted ACH or EFT transactions will be REJECTED. Heat/Gas 150.[address] [employer] [address] [facility] [employer]es 150.00 [place] [employer] 100.00 [facility] The [facility] is committed to providing help, hope and a reason to smile to cancer patients and their families by contributing financial and emotional support when it is needed most. I am available for ongoing support and resource referral, as needed Pager [phone] documented in this encounter Plan of Treatment Upcoming Encounters Date Type Specialty Care Team Description 11/28/2021 Hospital Encounter Radiology Harlan Parmar MD [facility] DR HEMATOLOGY/ONCOLOGY DEPT. [place], [place] [address] (Wo rk) 11/28/2021 Appointment Radiology Harlan Parmar M D [facility] DR HEMATOLOGY/ONCOLOGY DEPT. [place], [place] [address] (Wo rk) 12/01/2021 Office Visit Hematology and Oncology Harlan Parmar MD [facility] DR HEMATOLOGY/ONCOLOGY DEPT. [place], [place] [address] (Wo rk) documented as of this encounter Visit Diagnoses Not on filedocumented in this encounter Care Teams Mix Maker Relationship Specialty Start Date End Date Fernanda Evans APRN PCP - General Family Medicine 08/14/16 08/26/[address] [place] [place] [address] documented as of this encounter
--- OUTSIDE RECORDS SUMMARY | 2021-11-25 00:30 | XMS_ITS | Encounter Summary ---
:1950 Author Organization [facility] [place] [address] Care Team Providers Name Role Phone Nuha Evanscarlos eduardo Mobley APRN Primary Care Provider Reason for Referral Diagnostic Test (Routine) - Closed Specialty Diagnoses / Procedures Referred By Contact Refer red To Contact Radiology Diagnoses Primary malignant neoplasm of right lower lobe of lung Lopez Billings MD [facility] Interventionl Rad Procedures IR Mediport Placement / Exchange PRO INSERT TUNNELED CV CATH W SUBQ PORT, AGE 5 YRS OR OLDER PRG FLUORO GUIDE CENTRAL VEIN ACCESS PLACE REPLACE REMOVE [address] [place] [phone] Fax: Referral ID Status Reason Start Date Expiration Date Visits V isits Requested Authorized [id number] Closed Specialty 12/12/2016 12/12/2017 1 1 Service Requested Reason for Visit Reason Comments Interstitial Lung Disease Encounter Details Date Type Department Care Team Description 12/12/2016 Office Visit Hematology/Oncology Lopez Billings, 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; at [facility] Primary malignant neoplasm of right lowe r lobe of lung [address] [place] [phone] Social History Tobacco Use Types Packs/Day Years [...] Reading Time Taken Comments Blood Pressure 123/56 12/12/2016 11:08 AM EDT Pulse 67 12/12/2016 11:08 AM EDT Temperature 36.6 ??C (97.9 ??F) 12/12/2016 11:08 AM EDT Respiratory Rate 16 12/12/2016 11:08 AM EDT Oxygen Saturation 100% 12/12/2016 11:08 AM EDT Inhaled Oxygen Concentration - - Weight 52.2 kg (115 lb) 12/12/2016 11:08 AM EDT Height 164.8 cm (5' 4.88) 12/12/2016 11:08 AM EDT copi ed Body Mass Index 19.21 12/12/2016 11:08 AM EDT documented in this encounter Progress Notes Lopez Billings MD - 12/12/2016 11:00 AM EDT Images from the original note were not included. 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 The first cycle was associated with several problems. Initially, she had some hyperactivity from the dexamethasone that I gave her with her chemotherapy. That lasted a couple of days and she found it a bit unpleasant. She also had started to develop a rash and developed thrush. We treated the thrush with Diflucan and it rapidly resolved. The rash, however, did get quite a bit worse and it essentially became a total body rash a few days after I saw her. A Medrol Dosepak was called in at that point and she has managed to take it for a couple of days before she decided she did not like feeling hyperactive and not only discontinued it but actually threw it out. Some triamcinolone cream was called in and she used that on a couple of areas and the rash fairly rapidly resolved after that. We spent some time talking about the rash and what to do this cycle. She was actually hoping I would decrease the steroids with her treatment initially, although that is not what one would usually do in this clinical situation. After discussions, she noted she is fine with leaving things they way they were. She did think the triamcinolone cream did help where she used it. She does note her breathing is about the same. She continues to have some wheezing and uses an inhaler at times. She has no hemoptysis. She does note a little bit of pleural-type chest pain with deep inspiration on occasion. She notes, though that overall her pain is resolved and she feels better. Past Medical History: Diagnosis Date ??? GERD [...] 4.71) performed by Tunde Wang MD at [facility] MAIN OR ??? PRO COLONOSCOPY, BIOPSY N/A 12/21/2014 COLONOSCOPY FLEXIBLE, WITH BX performed by Joaquin Freeman MD at [facility] ENDOSCOPY ??? PRO UPPER GI ENDOSCOPY, DIAGNOSTIC N/A 10/19/2016 ENDOSCOPY, UPPER GI, DIAGNOSTIC, WITH OR WITHOUT SPECIMENS performed by Tunde Wang MD at [facility] MAIN OR ??? MARCO AND BSO [...] 2 times daily. 60 mL 3 ??? fluconazole (DIFLUCAN) 200 [...] ??? atenolol (TENORMIN) 50 mg Tablet ??? methylPREDNISolone (MEDROL DOSPACK) 4 mg Tablets, Dose Pack Use as directed on product package. (Patient not taking: Reported on 12/12/2016) 21 tablet 0 ??? EPINEPHrine 0.3 mg/0.3 mL Auto-Injector Reported [...] normal, no drainage or sinus tenderness Throat: She has a thick white coating on her tongue and palate consistent with thrush Neck: Supple, symmetrical, trachea midline, no [...] supraclavicular, and axillary nodes normal Neurologic: Normal ?Non-Print Producer Final DIAGNOSIS Positive for Malignancy Electronically signed [...] the pathology report and slides, the specimen ??([id number]) was selected for mutation analysis from [...] ?? TECHNIQUE: Procedure: Following IV injection of 81-wnfqod-6-deoxyglucose (FDG) a standard uptake of approximately 60 [...] (ALIMTA) IV 500 mg/m2/dose = 760 mg Laboratory today shows normal electrolytes, creatinine of 0.96, ALP has dropped from 139 to 121. Calcium is normal at 8.7, CBC shows a white count of 6.17, hemoglobin 11.8, hematocrit 36.1, and a platelet count of 422. Absolute neutrophil count is 1.91. Thyroid tests are pending. ASSESSMENT/PLAN: Divya is tolerating the treatment well. Although pembrolizumab can be associated with rash, the rash she describes and its clinical course is more consistent with the Alimta being the prime medication. Usually, the is addressed by adding steroids for 3 days after each infusion. She really does not want to do that and I do not want to decrease the steroids with the primary chemotherapy. After discussions, we decided to go ahead with the chemotherapy without change and continue the 10 mg of dexamathasone with treatment. If she develops a rash again she will try the triamcinolone cream but if that is ineffective, we will try her on dexamethasone 4 mg daily for a couple of days in hopes of making things more tolerable. There is some evidence that she is responding to treatment with improvement in her alkaline phosphatase at this point. She is also quite a bit more comfortable overall but we did talk about restaging her after 3 months of treatment, which is 4 cycles. She has no evidence of any autoimmune problems. We will set her up for lab including thyroid studies in 3 weeks and she will call if there is issues or problems in the interim and specifically if she has a severe rash again. documented in this encounter Plan of Treatment Upcoming Encounters Date Type Specialty Care Team Description 11/28/2021 Hospital Encounter Radiology Harlan Parmar MD [facility] HEMATOLOGY/ONCOLOGY DEPT. [place], [place] [address] (Wo rk) 11/28/2021 Appointment Radiology Harlan Parmar M D [facility] DR HEMATOLOGY/ONCOLOGY DEPT. [place], [place] [address] (Wo rk) 12/01/2021 Office Visit Hematology and Oncology Harlan Parmar MD [facility] DR HEMATOLOGY/ONCOLOGY DEPT. [place], [place] [address] (Wo rk) documented as of this encounter Results IR Mediport Placement / [...] Prior to beginning the procedure, a nano frances time out Moment of Truth was performed [...] Information: Vaccess CT (POWER) P ort REF [id number] LOT [id number] Medications: Lidocaine 1% <10 mL SQ, Bup [...] meets criteria. 2) Port ready for use. Crankshaft Straightener(s): Associate Provider: Angelito Faria APRN. I was present during the intraservice time as documented by the I R nurse. Attending: Dr. 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
--- OUTSIDE RECORDS SUMMARY | 2021-11-25 00:30 | XMS_ITS | Encounter Summary ---
:1950 Author Organization [facility] [place] [address] Care Team Providers Name Role Phone Fernanda Evans APRN Primary Care Provider Reason for Visit Reason Onset Date Comments Follow-up 11/23/2016 Encounter Details Date Type Department Care Team Description 11/23/2016 Telephone Hematology/Oncology at Elba Clemens RN Follow-up [address] [phone] Social History Tobacco Use [...] this encounter Miscellaneous Notes Telephone Encounter - Elba Aragon RN - 11/23/2016 12:08 PM EDT Pt hyped up after having her chemotherapy yesterday with dexamethasone for premeds. Suggested she try some benadryl to settle her down. She has some pain in her stomach not nausea , Dr. hyde stated she does have some positive nodes and can try some tylenol. No issues with fever eating or moving bowels. She will call with questions or concerns. documented in this encounter Plan of Treatment Upcoming Encounters Date Type Specialty Care Team Description 11/28/2021 Hospital Encounter Radiology Harlan Parmar MD [facility] HEMATOLOGY/ONCOLOGY DEPT. [place], [place] [address] (Wo rk) 11/28/2021 Appointment Radiology Harlan Parmar M D [facility] HEMATOLOGY/ONCOLOGY DEPT. [place], [place] [address] (Wo rk) 12/01/2021 Office Visit Hematology and Oncology Harlan Parmar MD [facility] HEMATOLOGY/ONCOLOGY DEPT. [place], [place] [address] (Wo rk) documented as of this encounter Visit Diagnoses Not on filedocumented in this encounter Care Teams Slate Roofer Relationship Specialty Start Date End Date Fernanda Evans APRN PCP - General Family Medicine 08/14/16 08/26/[address] [address] documented as of this encounter
--- OUTSIDE RECORDS SUMMARY | 2021-11-25 00:30 | XMS_ITS | Encounter Summary ---
:1950 Author Organization [facility] [place] [address] Care Team Providers Name Role Phone Nuha Evanscarlos eduardo Mobley APRN Primary Care Provider Reason for Referral Consultation (Routine) - Closed Specialty Diagnoses / Procedures Referred By Contact Refer red To Contact Hematology and Oncology Diagnoses Lung nodule, multiple Lopez Billings MD [facility] Hem Onc Office [address] [place] [phone] Fax: Referral ID Status Reason Start Date Expiration Date Visits V isits Requested Authorized [id number] Closed Consult, 11/06/2016 11/06/2017 1 1 Test & Treat Encounter Details Date Type Department Care Team Description 11/06/2016 Orders Only Thoracic Surgery at [facility], Lung nodule, multiple [facility] [place] [phone] Social History Tobacco Use Types Packs/Day [...] Harlan Parmar MD [facility] DR HEMATOLOGY/ONCOLOGY DEPT. [place], [place] [address] (Wo rk) 11/28/2021 Appointment Radiology Harlan Parmar M D [facility] DR HEMATOLOGY/ONCOLOGY DEPT. [place], [place] [address] (Wo rk) 12/01/2021 Office Visit Hematology and Oncology Harlan Parmar MD [facility] DR HEMATOLOGY/ONCOLOGY DEPT. [place], [place] [address] (Wo rk) Scheduled Referrals Name Type Priority Associated Order Schedule Diagnoses Referral to Outpatient Referral Routine Lung nodule, Ordered: Hematology and multiple 11/06/2016 Oncology documented as of this encounter Visit Diagnoses Diagnosis Lung nodule, multiple Other nonspecific abnormal finding of jay ng field documented in this encounter Care Teams Delivery Driver Assistant Relationship Specialty Start Date End Date Fernanda Evans, CUSTOMER ACCOUNT COORDINATOR PCP - General Family Medicine 08/14/16 08/26/[address] [place] [address] documented as of this encounter
--- OUTSIDE RECORDS SUMMARY | 2021-11-25 00:30 | XMS_ITS | Encounter Summary ---
:1950 Author Organization [facility] [place] [address] Care Team Providers Name Role Phone Nuha Evanscarlos eduardo Mobley APRN Primary Care Provider Encounter Details Date Type Department Care Team Description 11/28/2016 Orders Only [facility] RN neoplasm of [address] [place] [phone] Social History Tobacco Use Types [...] [facility] DR HEMATOLOGY/ONCOLOGY DEPT. [place], [place] [address] (Kai fermin) 11/28/2021 Appointment Radiology Harlan Parmar M D [facility] HEMATOLOGY/ONCOLOGY DEPT. [place], [place] [address] (Kai fermin) 12/01/2021 Office Visit Hematology and Oncology Harlan Parmar MD [facility] HEMATOLOGY/ONCOLOGY DEPT. [place], [place] [address] (Kai fermin) documented as of this encounter Visit Diagnoses Diagnosis Primary malignant neoplasm of right lowe r lobe of lung Malignant neoplasm of lower lobe, bronch us, or lung documented in this encounter Care Teams Asset Accountant Relationship Specialty Start Date End Date Fernanda Evans APRN PCP - General Family Medicine 08/14/16 08/26/[address] [place] [address] documented as of this encounter
--- OUTSIDE RECORDS SUMMARY | 2021-11-25 00:30 | XMS_ITS | Encounter Summary ---
:1950 Author Organization [facility] [place] [address] Care Team Providers Name Role Phone Nathan Fernandacarlos eduardo Mobley APRN Primary Care Provider Reason for Referral Diagnostic Test (Routine) - Closed Specialty Diagnoses / Procedures Referred By Contact Refer red To Contact Radiology Diagnoses Primary malignant neoplasm of right lower lobe of lung Hypothyroidism due to drugs Lopez Billings MD [facility] Rad Nuclear Med Procedures PET CT Standard Plus Extremities & Head PET CT Standard Skull Base to Mid-Thigh [address] [place] [phone] Fax: Referral ID Status Reason Start Date Expiration Date Visits V isits Requested Authorized [id number] Closed Specialty 01/31/2017 05/01/2017 1 1 Service Requested Reason for Visit Diagnostic Test (Routine) - Closed Specialty Diagnoses / Procedures Referred By Contact Refer red To Contact Radiology Diagnoses Primary malignant neoplasm of right lower lobe of lung Hypothyroidism due to drugs Lopez Billings MD [facility] Rad Nuclear Med Procedures PET CT Standard Plus Extremities & Head PET CT Standard Skull Base to [facility] [address] [place] [phone] Fax: Referral ID Status Reason Start Date Expiration Date Visits V isits Requested Authorized [id number] Closed Specialty 01/31/2017 05/01/2017 1 1 Service Requested Encounter Details Date Type Department Care Team Description 02/27/2017 Hospital Encounter Nuclear Medicine Lopez Billings malignant neoplasm of right lower lobe of lung; at [facility] Delmy Gallegos MD Hypothyroidism due to drugs [address] [place] [phone] Social History Tobacco Use Types Packs/Day Years [...] Hospital Encounter Radiology Harlan Parmar MD [facility] HEMATOLOGY/ONCOLOGY DEPT. [place], [place] 0[address] (Wo rk) 11/28/2021 Appointment Radiology Harlan Parmar M D [facility] HEMATOLOGY/ONCOLOGY DEPT. [place], [place] 0375 (Wo rk) 12/01/2021 Office Visit Hematology and Oncology Harlan Parmar MD [facility] HEMATOLOGY/ONCOLOGY DEPT. [place], [place] 0375 (Wo rk) documented as of this encounter Procedures Procedure Name Priority Date/Time Associated Comments Diagnosis NM PET CT STANDARD Routine 02/27/2017 10:44 Primary malignant Results for this PLUS EXTREMITIES AND AM EST neoplasm of right pr ocedure are in HEAD lower lobe of jay ng the results Hypothyroidism due section. to drugs documented in this encounter Results PET CT [...] neoplasm. Thank you for referring this patient [facility]. I have personally reviewed the image(s) and the residents interpretation and agree with the findings, Joelle espinoza 02/27/2017 12:31 PM Narrative 02/27/2017 12:31 PM EST EXAMINATION: PET CT STANDARD PLUS EXTREMITIES AND HEAD CLINICAL HISTORY: Follow Up Scan post 3 months combination Chemotherapy and Immunotherapy TECHNIQUE: Procedure: Following IV injec tion of 58-jmlxeo-5-deoxyglucose (FDG) a standard uptake of approximately 60 [...] 2.1 COMPARISON: 09/26/2016 PET/CT, 08/07/2016 outside [facility] [address] chest CT FINDINGS: HEAD/NECK: A small focus [...] TECHNIQUE: Procedure: Following IV injec tion of 89-vpvatc-2-deoxyglucose (FDG) a standard uptake of approximately 60 [...] 2.1 COMPARISON: 09/26/2016 PET/CT, 08/07/2016 outside hospi leonarda chest CT FINDINGS: HEAD/NECK: A small focus [...] neoplasm. Thank you for referring this patient [facility]. 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 documented in this encounter Administered Medications Inactive Administered Medications - up to 3 most recent administrations Medication Order MAR Action Action Date Dose Rate Site fludeoxyglucose (F-18) FDG Given 02/27/2017 9:02 AM EST 7.4 mCi injection 7.4 mCi 7.4 mCi, Intravenous, ONCE PRN, 1 dose, Starting on Sun02/27/17 at 0908, Until Sun02/27/17 at 0902, Per Protocol, Routine documented in this encounter Care Teams Cena Relationship Specialty Start Date End Date Fernanda Evans, ARCH PAD CEMENTER PCP - General Family Medicine 08/14/16 08/26/[address] [place] [address] documented as of this encounter
--- OUTSIDE RECORDS SUMMARY | 2021-11-25 00:30 | XMS_ITS | Encounter Summary ---
:1950 Author Organization [facility] [place] [address] Care Team Providers Name Role Phone Nuha Evansn Itz ROBLES Primary Care Provider Encounter Details Date Type Department Care Team Description 02/20/2017 Telephone Hematology/Oncology at Lopez Billings MD [address] [address] [place] [phone] Social History Tobacco Use Types Packs/Day Years [...] Encounter - Lopez Billings MD - 02/20/2017 3:43 PM EST See Other phone note documented in this encounter Plan of Treatment Upcoming Encounters Date Type Specialty Care Team Description 11/28/2021 Hospital Encounter Radiology Harlan Parmar MD [facility] HEMATOLOGY/ONCOLOGY DEPT. [place], [place] [address] (Wo rk) 11/28/2021 Appointment Radiology Harlan Parmar M D [facility] HEMATOLOGY/ONCOLOGY DEPT. [place], [place] [address] (Wo rk) 12/01/2021 Office Visit Hematology and Oncology Harlan Parmar MD [facility] DR HEMATOLOGY/ONCOLOGY DEPT. [place], [place] [address] (Wo rk) documented as of this encounter Visit Diagnoses Not on filedocumented in this encounter Care Teams Electromatic Typist Relationship Specialty Start Date End Date Fernanda Evans APRN PCP - General Family Medicine 08/14/16 08/26/[address] [place] [address] documented as of this encounter
--- OUTSIDE RECORDS SUMMARY | 2021-11-25 00:30 | XMS_ITS | Encounter Summary ---
:1950 Author Organization [facility] [place] [address] Care Team Providers Name Role Phone Fernanda Evans ROBLES Primary Care Provider Encounter Details Date Type Department Care Team Description 11/20/2016 Orders Only Hematology/Oncology Lopez Billings, Ashlyn aldana malignant at [facility] MD neoplasm of right [address] [place] [address] DR [place] [address] [phone] (Wo rk) Social History Tobacco Use Types [...] Harlan Parmar MD [facility] HEMATOLOGY/ONCOLOGY DEPT. [place], [place] [address] (Wo rk) 11/28/2021 Appointment Radiology Harlan Parmar M D [facility] HEMATOLOGY/ONCOLOGY DEPT. [place], [place] [address] (Wo rk) 12/01/2021 Office Visit Hematology and Oncology Harlan Parmar MD [facility] HEMATOLOGY/ONCOLOGY DEPT. [place], [place] [address] (Wo rk) documented as of this encounter Visit Diagnoses Diagnosis Primary malignant neoplasm of right lowe r lobe of lung Malignant neoplasm of lower lobe, bronch us, or lung documented in this encounter Care Teams Pocketed Spring Machine Operator Relationship Specialty Start Date End Date Fernanda Evans APRN PCP - General Family Medicine 08/14/16 08/26/[address] [place] [address] [place] [address] documented as of this encounter
--- OUTSIDE RECORDS SUMMARY | 2021-11-25 00:30 | XMS_ITS | Encounter Summary ---
:1950 Author Organization [facility] [place] [address] Care Team Providers Name Role Phone Nuha Evanscarlos eduardo Mobley APRN Primary Care Provider Reason for Visit Reason Comments IV Access Mediport flush Encounter Details Date Type Department Care Team Description 02/26/2017 Infusion Hematology Oncology at [facility] malignant neoplasm [facility] of right lower lobe of lung [address] [place] [address] [phone] Social History Tobacco Use Types [...] encounter Progress Notes Lea Vasquez RN - 02/26/2017 10:00 AM EST INFUSION THERAPY ADMINISTRATION NOTES DIAGNOSIS: Lung Cancer REASON FOR VISIT: MEDIPORT FLUSH ONLY IV [...] 11/28/2021 Hospital Encounter Radiology Harlan Parmar MD [facility] HEMATOLOGY/ONCOLOGY DEPT. [place], [place] [address] (Wo rk) 11/28/2021 Appointment Radiology Harlan Parmar M D [facility] HEMATOLOGY/ONCOLOGY DEPT. [place], [place] [address] (Wo rk) 12/01/2021 Office Visit Hematology and Oncology Harlan Parmar MD [facility] HEMATOLOGY/ONCOLOGY DEPT. [place], [place] [address] (Wo rk) documented as of this encounter Visit Diagnoses Diagnosis Primary malignant neoplasm of right lowe r lobe of lung Malignant neoplasm of lower lobe, bronch us, or lung documented in this encounter Care Teams Auto Body Detailer Relationship Specialty Start Date End Date Fernanda Evans APRN PCP - General Family Medicine 08/14/16 08/26/[address] [place] [place] [address] documented as of this encounter
--- OUTSIDE RECORDS SUMMARY | 2021-11-25 00:30 | XMS_ITS | Encounter Summary ---
:1950 Author Organization [facility] [place] [address] Care Team Providers Name Role Phone Nathan Fernanda Mobley APRN Primary Care Provider Reason for Visit Reason Comments Lung Cancer Encounter Details Date Type Department Care Team Description 01/02/2017 Office Visit Hematology/Oncology Lopez Billings, Ashlyn aldana malignant neoplasm of right lower lobe of lung; at [facility] Hypothyroidism due to drugs [address] [place] [address] [address], [place] [address] [phone] Social History Tobacco Use Types Packs/Day Years [...] Sign Reading Time Taken Comments Blood Pressure 128/57 01/02/2017 10:38 AM EDT Pulse 71 01/02/2017 10:38 AM EDT Temperature 36.7 ??C (98.1 ??F) 01/02/2017 10:38 AM EDT Respiratory Rate 18 01/02/2017 10:38 AM EDT Oxygen Saturation 100% 01/02/2017 10:38 AM EDT Inhaled Oxygen Concentration - - Weight 53.2 kg (117 lb 3.2 oz) 01/02/2017 10:38 AM EDT Height 164.8 cm (5' 4.88) 01/02/2017 10:38 AM EDT copi ed Body Mass Index 19.57 01/02/2017 10:38 AM EDT documented in this encounter Progress Notes Lopez Billings MD - 01/02/2017 10:30 AM EDT Images from the original note were not included. 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 SUBJECTIVE: Divya comes in today for a third infusion of pembrolizumab with carboplatin and Alimta. This past cycle, she did not have a rash. She did make the decision to have a port placed, so we did that, but she was fairly neutropenic at the time. As her counselor expected her to recover in short order, she was given IV cephalosporin and I had her continue Keflex for a few days. Her counts are back up and things have healed up quite well with no infection at all. She does note some fatigue with the treatment. She continues to have a pleuritic type chest pain, mostly in the back, with deep inspiration on occasion. She has her typical cough, but only clear sputum is produced, and really no change in that regard. She continues to have some loose stools on occasion, but that is nothing different than it has been over the past few years. Is not having any symptoms of colitis as far as I can tell, although she does tend to have a positive review of systems. We discussed getting another PET scan on her after 4 cycles of treatment. She is unable to tolerate any contrast dye, so PET scanning is absolutely necessary in her case to try and sort out whether or not she is responding. Past Medical History: Diagnosis Date ??? GERD (gastroesophageal reflux disease) ??? IBS (irritable bowel syndrome) ??? Lung cancer, primary, with metastasis from lung to other site ??? Multiple sclerosis ??? SVT (supraventricular tachycardia) Past Surgical History: Procedure Laterality Date ??? APPENDECTOMY 2007 ??? INGUINAL HERNIA REPAIR 1994 ??? PRO [facility] EBUS GUIDED SAMPL 1/2 NODE STATION/STRUX N/A 10/19/2016 BRONCH, W ENDOBRONCHIAL ULTRASOUND (EBUS) GUIDED SAMPLING, 1/2 NODES (WRVU 4.71) performed by Tunde Wang MD at [facility] MAIN OR ??? PRO COLONOSCOPY, BIOPSY N/A 12/21/2014 COLONOSCOPY FLEXIBLE, WITH BX performed by Joaquin Freeman MD at [facility] ENDOSCOPY ??? PRO UPPER GI ENDOSCOPY, DIAGNOSTIC N/A 10/19/2016 ENDOSCOPY, UPPER GI, DIAGNOSTIC, WITH OR WITHOUT SPECIMENS performed by Tunde Wang MD at [facility] MAIN OR ??? MARCO AND BSO [...] taking: Reportedon 01/02/2017) 7 tablet 0 ??? EPINEPHrine 0.3 mg/0.3 mL [...] supraclavicular, and axillary nodes normal Neurologic: Normal ?Non-[employer] Technology Transactions Attorney Final DIAGNOSIS Positive for Malignancy Electronically signed by: ??Alina LUNA, Herbert Johnson Verified: ??10/21/2016 ?Cytopathologist DISCUSSION Lymph node: level 7 (EBUS-guided FNA) - Compatible with adenocarcinoma. The tumor cells resemble those present in the concurrent level 10L lymph node FNA. ? Molecular Genetics RESULTS Please refer to Cytopathology Report [id number] for final pathology diagnosis. INDICATION FOR STUDY: ?? Lymph node, level 7 (EBUS-guided FNA) - Compatible with ??adenocarcinoma SPECIMEN ANALYZED: ?? -3075 A1 Analysis: ??Examination of DNA extracted from formalin-fixed paraffin-embedded tumor ??tissue for somatic mutation analysis. Results: ??The following gene variants were identified in the submitted tissue: CLINICALLY ACTIONABLE VARIANTS: BRAF: ??NEGATIVE EGFR: ??NEGATIVE KRAS: ??MUTATION c.34G> T p.G12C Exon 2 PIK3CA: ??NEGATIVE OTHER DETECTED VARIANTS: N/A Interpretation: ?? After review of the pathology report and slides, the specimen ??([id number]) was selected for mutation analysis from [...] ?? TECHNIQUE: Procedure: Following IV injection of 42-mlnlyh-4-deoxyglucose (FDG) a standard uptake of approximately 60 [...] Whitley MD Verified: ??10/24/2016 ?Pathologist [facility] ONCOLOGY ([facility]) 11/22/2016 Day, Cycle Day 1, Cycle 1 CARBOplatin (PARAPLATIN) IV 363 mg cyanocobalamin (vitamin B-12) SubQ 1,000 mcg pembrolizumab (KEYTRUDA) IV 200 mg PEMEtrexed (ALIMTA) IV 500 mg/m2/dose = 760 mg ONCBCN ONCOLOGY ([facility]) 12/12/2016 Day, Cycle Day 1, Cycle 2 CARBOplatin (PARAPLATIN) IV 376 mg cyanocobalamin (vitamin B-12) SubQ pembrolizumab (KEYTRUDA) IV 200 mg PEMEtrexed (ALIMTA) IV 500 mg/m2/dose = 760 mg Laboratory today shows normal electrolytes, a creatinine of 0.93, alkaline phosphatase of 117, TSH of 2.49, T4 of 11.7, transaminases are mildly elevated with an AST of 42 and an ALT of 83. CBC shows a white count of 8.42, hemoglobin 12.2, hematocrit 30.7, and platelet count of 296. ASSESSMENT/PLAN: Divya is tolerating the treatment well with no autoimmune problems. Will keep an eye on her transaminases, and if they continue to go up, consideration to stopping the pembrolizumab would be given, and some consideration to starting her on a short course of steroids could be considered as well. We discussed trying to get her through 4 cycles of treatment and then restaging. Will go ahead with today's treatment as planned and see her back in 3 weeks with lab, sooner if there are issues in the interim. documented in this encounter Plan of Treatment Upcoming Encounters Date Type Specialty Care Team Description 11/28/2021 Hospital Encounter Radiology Harlan Parmar MD [facility] DR HEMATOLOGY/ONCOLOGY DEPT. [place], [place] [address] (Wo rk) 11/28/2021 Appointment Radiology Harlan Parmar M D [facility] DR HEMATOLOGY/ONCOLOGY DEPT. [place], [place] [address] (Wo rk) 12/01/2021 Office Visit Hematology and Oncology Harlan Parmar MD [facility] DR HEMATOLOGY/ONCOLOGY DEPT. 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
--- OUTSIDE RECORDS SUMMARY | 2021-11-25 00:31 | XMS_ITS | Encounter Summary ---
:1950 Author Organization [facility] [place] [address] Care Team Providers Name Role Phone Fernanda Evans APRN Primary Care Provider Reason for Visit Diagnostic Test (Routine) - Closed Specialty Diagnoses / Procedures Referred By Contact Refer red To Contact Radiology Diagnoses Abnormal CT scan of lung Fernanda Evans APRN [facility] Rad Nuclear Med Procedures PET CT Standard Plus Extremities & Head PET CT Standard Skull Base to Mid-Thigh [address] [place] [id number] Referral ID Status Reason Start Date Expiration Date Visits V isits Requested Authorized [id number] Closed Specialty 08/14/2016 11/12/2016 1 1 Service Requested Encounter Details Date Type Department Care Team Description 09/26/2016 Hospital Encounter Nuclear Medicine at [facility] Abnormal CT scan of Peg MobleyROBLES lung [address] [address] [place], [place] [phone] Social History Tobacco Use Types Packs/Day Years Used Date Never Assessed Sex Assigned at Date Recorded Female 07/30/2020 4:21 AM EDT documented as of this encounter Medications at Time of Discharge Medication Sig Dispensed Refills Start Date End Date buPROPion (WELLBUTRIN take 3 tablet by 0 09/19/19 17 XL) 300 mg Tablet mouth once daily Extended Release 24 hr EPINEPHrine 0.3 mg/0.3 Reported on 10/09/2016 0 mL Auto-Injector clonazePAM (KLONOPIN) 1 0.5 mg. 0 10/25/2015 mg Tablet atenolol (TENORMIN) 50 0 09/14/2015 mg Tablet diphenoxylate-atropine Reported on 10/09/2016 0 10/18/2016 (LOMOTIL) 2.5-0.025 mg Tablet gabapentin (NEURONTIN) Taper/Titrate, 0 0 10/18/2016 100 mg capsule POTaper/Titrate, PO. Take 1 (ONE)Capsule(s) (100 MG = 1 Capsule(s)) Once daily for 1 Week.Take 1 (ONE)Capsule(s) (100 MG = 1 Capsule(s)) Twice daily for 1 Week.Take 1 (ONE)Capsule(s) (100 MG = 1 Capsule(s)) Three times daily for ongoing treatment. interferon beta-1a 44 MCG/0.5 ML, SQ, 0 0 10/18/2016 (REBIF) 44 mcg/0.5 mL Three times per week injection Interferon Beta-1a 1 Syringe(s), SQ, 0 08/17/2009 10/18/2016 (REBIF TITRATION PACK) Three times per week 8.8mcg/0.2mL-22 mcg/0.5mL (6) Syrg documented as of this encounter Plan of Treatment Upcoming Encounters Date Type Specialty Care Team Description 11/28/2021 Hospital Encounter Radiology Harlan Parmar MD [facility] DR HEMATOLOGY/ONCOLOGY DEPT. [place], [place] [address] (Wo rk) 11/28/2021 Appointment Radiology Harlan Parmar M D [facility] HEMATOLOGY/ONCOLOGY DEPT. [place], [place] [address] (Wo rk) 12/01/2021 Office Visit Hematology and Oncology Harlan Parmar MD [facility] HEMATOLOGY/ONCOLOGY DEPT. [place], [place] [address] (Wo rk) documented as of this encounter Procedures Procedure Name Priority Date/Time Associated Comments Diagnosis NM PET CT STANDARD Routine 09/26/2016 10:[address] scan o f Results for this PLUS EXTREMITIES AND AM EDT lung procedu re are in HEAD the results section. POCT GLUCOSE Routine 09/26/2016 8:31 AM Results f or this EDT procedure are i n the results section. documented in this encounter Results PET CT Standard Plus Extremities & Head (09/26/2016 10:27 AM EDT) Anatomical Region Laterality Modality Positron Emission To mography (PET) Specimen (Source) Anatomical Location Collection Method / Collectio n Time Received Time / Laterality Volume Impressions 09/26/2016 4:44 PM EDT 1. ??FDG avid pulmonary masses and nodules are highly suspicious for malignancy/metastasis. 2. ??FDG avid right hilar, mediastinal, and gastrohepatic adenopathy, highly suspicious for shmuel metastases. 3. ??Small hypermetabolic lytic lesion i n the left ischium, and small hypermetabolic focus within the posterol ateral left 11th rib, highly suspicious for osseous metastases. 4. ??Small hypermetabolic focus in the i ntra or perimuscular left thigh abductor compartment, suspicious for metastasis. 5. ??Small hypermetabolic focus in the G E junction region with no definite CT correlate. While this could represent ph ysiologic activity, a small focus of inflammation or malignancy is not exclud ed. Consider direct visualization. 6. ??Incidental finding of a small hyper metabolic focus in the inferior pole of the right thyroid lobe, suspicious for a benign versus malignant thyroid neoplasm. Thank you for referring this patient [facility]. I have personally reviewed the image(s) and the residents interpretation and agree with the findings, Harlan Veloz at 09/26/2016 4:44 PM Narrative 09/26/2016 4:44 PM EDT EXAMINATION: PET CT STANDARD PLUS EXTREMITIES AND HEAD CLINICAL HISTORY: Chest CT showing multi ple bilateral round opacities of lungs and radiology recommending PET CT to fur ther evaluate TECHNIQUE: Procedure: Following IV injec tion of 94-wdzcpa-2-deoxyglucose (FDG) a standard uptake of approximately 60 aspen daksha, a noncontrast CT scan followed by a PET scan were acquired from the top of h ead to bottom of feet. The noncontrast CT was used for anatomic localization an d photon attenuation correction of the PET scan. Blood glucose level: 106 (mg/dL) FDG dose: 7.8 mCi COMPARISON: 08/07/[address] FINDINGS: HEAD/NECK: A small focus of FDG activity seen at th e posterior inferior aspect of the right thyroid gland. No other abnormal FDG act ivity is seen in the head or neck. ? CHEST: ?? Unchanged size of the 4 x 3 cm FDG avid cavitary right lower lobe mass. The 2 x 2.2 cm FDG avid left lower lobe pulmonar y nodule is also grossly unchanged in size. Multiple additional smaller pulmon sanjeev nodules are seen in all lobes, the largest of which are FDG avid while the smaller nodules may be below the sensitivity of PET. An enlarged FDG avid subcarinal lymph node is seen abutting the anterior aspect of the esophagus. Sm all FDG avid right hilar lymph nodes are also seen. ? ABDOMEN/PELVIS: A small focus of hypermetabolic activity is seen in the gastroesophageal junction without obvious CT correlate. A n enlarged hypermetabolic gastrohepatic lymph node measuring 13 mm in short axis is seen adjacent to the gastroesophageal junction. Several simple hepatic cysts are redemon strated. SKELETON/EXTREMITIES: A 14 x 7 mm hypermetabolic lytic lesion is seen in the left ischium. A focus of FDG activity without the CT correlate is seen the posterolateral left 11th rib. ?? A small intensely FDG avid lesion is see n within the abductor compartment of the left, intramuscular versus perimuscular location. ? Procedure Note Harlan Veloz MD - 09/26/2016Formatti ng of this note might be different from the original. EXAMINATION: PET CT STANDARD PLUS EXTREM ITIES AND HEAD CLINICAL HISTORY: Chest CT showing multi ple bilateral round opacities of lungs and radiology recommending PET CT to fur ther evaluate TECHNIQUE: Procedure: Following IV injec tion of 57-xxrtkq-7-deoxyglucose (FDG) a standard uptake of approximately 60 aspen daksha, a noncontrast CT scan followed by a PET scan were acquired from the top of h ead to bottom of feet. The noncontrast CT was used for anatomic localization an d photon attenuation correction of the PET scan. Blood glucose level: 106 (mg/dL) FDG dose: 7.8 mCi COMPARISON: 08/07/[address] FINDINGS: HEAD/NECK: A small focus of FDG activity seen at th e posterior inferior aspect of the right thyroid gland. No other abnormal FDG act ivity is seen in the head or neck. CHEST: Unchanged size of the 4 x 3 cm FDG avid cavitary right lower lobe mass. The 2 x 2.2 cm FDG avid left lower lobe pulmonar y nodule is also grossly unchanged in size. Multiple additional smaller pulmon sanjeev nodules are seen in all lobes, the largest of which are FDG avid while the smaller nodules may be below the sensitivity of PET. An enlarged FDG avid subcarinal lymph node is seen abutting the anterior aspect of the esophagus. Sm all FDG avid right hilar lymph nodes are also seen. ABDOMEN/PELVIS: A small focus of hypermetabolic activity is seen in the gastroesophageal junction without obvious CT correlate. A n enlarged hypermetabolic gastrohepatic lymph node measuring 13 mm in short axis is seen adjacent to the gastroesophageal junction. Several simple hepatic cysts are redemon strated. SKELETON/EXTREMITIES: A 14 x 7 mm hypermetabolic lytic lesion is seen in the left ischium. A focus of FDG activity without the CT correlate is seen the posterolateral left 11th rib. A small intensely FDG avid lesion is see n within the abductor compartment of the left, intramuscular versus perimuscular location. IMPRESSION 1. FDG avid pulmonary masses and nodules are highly suspicious for malignancy/metastasis. 2. FDG avid right hilar, mediastinal, an d gastrohepatic adenopathy, highly suspicious for shmuel metastases. 3. Small hypermetabolic lytic lesion in the left ischium, and small hypermetabolic focus within the posterol ateral left 11th rib, highly suspicious for osseous metastases. 4. Small hypermetabolic focus in the int ra or perimuscular left thigh abductor compartment, suspicious for metastasis. 5. Small hypermetabolic focus in the GE junction region with no definite CT correlate. While this could represent ph ysiologic activity, a small focus of inflammation or malignancy is not exclud ed. Consider direct visualization. 6. Incidental finding of a small hyperme tabolic focus in the inferior pole of the right thyroid lobe, suspicious for a benign versus malignant thyroid neoplasm. Thank you for referring this patient [facility]. I have personally reviewed the image(s) and the residents interpretation and agree with the findings, Harlan Veloz at 09/26/2016 4:44 PM Fernanda Evans APRN IMG PET ORDERABLES POCT Glucose (09/26/2016 8:31 AM EDT) athologist Signature POC Glucose 107 65 - 199 [facility] mg/dL [facility] Comment: Supplemental ranges: <140 mg/dL before meals <180 mg/dL all other times of the day Specimen Anatomical Collection Method Collection Time Receive d Time (Source) Location / / Volume Laterality Blood specimen 09/26/2016 8:31 AM 017 8:31 (specimen) EDT AM EDT Fernanda Evans APRN POINT OF CARE TEST ORDERABLE S Performing Organization Address City/State/Z[place] [address] documented in this encounter Visit Diagnoses Diagnosis Abnormal CT scan of lung Other nonspecific abnormal finding of jay ng field documented in this encounter Care Teams Joy Loader Relationship Specialty Start Date End Date Fernanda Evans APRN PCP - General Family Medicine 08/14/16 08/26/[address] [place] [address] documented as of this encounter
--- OUTSIDE RECORDS SUMMARY | 2021-11-25 00:31 | XMS_ITS | Encounter Summary ---
:1950 Author Organization [facility] [place] [address] Care Team Providers Name Role Phone Fernanda Evans APRN Primary Care Provider Reason for Visit Reason Comments Advice Only Consultation (TERRY) - Closed Specialty Diagnoses / Procedures Referred By Contact Refer red To Contact Thoracic Surgery Diagnoses Ground glass opacity present on imaging of lung Opacity of lung on imaging study. Chronic cough Fernanda Evans APRN [facility] Thoracic Surg [address] [place] [address] [address] [address] [place] [address] Fax: Referral ID Status Reason Start Date Expiration Date Visits V isits Requested Authorized [id number] Closed Consult, 09/19/2016 09/19/2017 1 1 [facility] Encounter Details Date Type Department Care Team Description 10/09/2016 Office Visit Thoracic Surgery at [place], Lung nod carey, teresa [facility] Tunde Amado MD [facility] [address] [place] THORACIC SURG[place] [address] [place] [address] [phone] Social History Tobacco Use Types Packs/Day Years Used Date Current Every Day Smoker Cigarettes 2 52 Smokeless Tobacco: Never Used Comments: 3 cigarettes a day for last 25 years Sex Assigned at Date Recorded Female 07/30/2020 4:21 AM EDT documented as of this encounter Last Filed Vital Signs Vital Sign Reading Time Taken Comments Blood Pressure 117/43 10/09/2016 9:26 AM EDT Pulse 67 10/09/2016 9:26 AM EDT Temperature 36.5 ??C (97.7 ??F) 10/09/2016 9:26 AM EDT Respiratory Rate 20 10/09/2016 9:26 AM EDT Oxygen Saturation 94% 10/09/2016 9:26 AM EDT Inhaled Oxygen Concentration - - Weight 52.8 kg (116 lb 6.4 oz) 10/09/2016 9:26 AM EDT Height 156.6 cm (5' 1.65) 10/09/2016 9:26 AM EDT Body Mass Index 21.53 10/09/2016 9:26 AM EDT documented in this encounter Progress Notes Kayce Villagomez - 10/09/2016 9:15 AM EDT Mrs. Lucas is a 65 year old female who presented to an outside ER in May Here 2wks for PET Feb to ER cold/pneumonia CXR CT for f/u of spot PMH MS- pain, sob, fatigue GERD Med: atenolol, welbutrin, clonazepam, inhaler albuterol Allegies: penic, sulfs, doesn't remember rxn PSH Tonsils, total hyst, appendix, adhesion 3-4laps ROS: Weights fluctuate nrl 115 Dizzy longstanding Constipation/diarrhea longstanding Pain with eating last few weeks Appetite varies, gets full easy Blurred vision CP almost everyday for last week, longstanding, can't get comfortable, central to left sided.usuallyin bed when it happens. SOB gotten worse over last year. Hasn't used albuterol for a while due to taste. Not always better with rest. Denies night sweats, chills, n/v Gets sob with stairs and walking down mata. SH: smoke 3cig, 25yrs 1-2p/d for 25yrs EtOH rarely, late drink a year and a half ago FamHx: Mom: colon cancer @83, dementia, Dad: parkinsons, DM, renal disease Pgm: parkinsons PE: documented in this encounter Plan of Treatment Upcoming Encounters Date Type Specialty Care Team Description 11/28/2021 Hospital Encounter Radiology Harlan Parmar MD [facility] DR HEMATOLOGY/ONCOLOGY DEPT. [place], [place] [address] (Wo rk) 11/28/2021 Appointment Radiology Harlan Parmar M D [facility] DR HEMATOLOGY/ONCOLOGY DEPT. [place], [place] [address] (Wo rk) 12/01/2021 Office Visit Hematology and Oncology Harlan Parmar MD [facility] HEMATOLOGY/ONCOLOGY DEPT. [place], [place] [address] (Wo rk) documented as of [...] in this encounter Visit Diagnoses Diagnosis Lung nodule, multiple Other nonspecific abnormal finding of jay ng field documented in this encounter Care Teams Medical Coding Instructor Relationship Specialty Start Date End Date Fernanda Evans APRN PCP - General Family Medicine 08/14/16 08/26/[address] [place] [address] [place] [address] documented as of this encounter
--- OUTSIDE RECORDS SUMMARY | 2021-11-25 00:31 | XMS_ITS | Encounter Summary ---
:1950 [place] [address] Care Team Providers Name Role Phone Fernanda Evans ROBLES Primary Care Provider Encounter Details Date Type Department Care Team Description 10/19/2016 Anesthesia Event Main Operating Room Pradeep Pierce [facility] MD Dameon [facility] Chasity chacon [place] [address] [place] [address] [phone] (Wo rk) Anesthesia Record Procedure Summary Procedure Name Responsible Anesthesia Start Anesthesia Stop Anesthesiologist Time Time BRONCH, W Katlyn Yeboah MD 10/19/16 0942 1129 ENDOBRONCHIAL ULTRASOUND (EBUS) GUIDED SAMPLING, 1/2 NODES (WRVU 4.71) (N/A ) Events Date Time Event Comment 10/19/2016 0942 AN Verify 0942 Start 0945 An Start Data 0954 An Induction 1000 An Intubation 1000 FO Bronchoscopy 1000 Anesthesia Ready 1008 Quick Note No antibiotics r equired per surgeon 1036 Quick Note IV stopped worki ng, after manipulation and flushing closer to the IV, able to free flow 1120 Extubation/LMA Out 1120 an stop data 1125 1128 Recovery or ICU Handoff Patient care was transferred to the destination unit staff after review of the patient's medica l history, current anesthetic/surgi faith status and plan, according to the Provider Handoff Checklist. 1129 Stop Name Total Midazolam 1 mg fentaNYL 25 mcg Propofol 100 mg Rocuronium 30 mg PHENYLephrine 120 mcg Ondansetron 4 mg Neostigmine 3 mg Glycopyrrolate 0.8 mg lactated Ringers infusion 1,000 mL 600 mL Agents Name O2 Air N2O Sevoflurane (et) Blood No blood administrations on file. Lines, Drains, and Airways Type Details Placement Removal PIV 10/19/16; 0915; 10/19/16 0915 by Pj, 1307 by [id number] catheter MARLENE Georges Alanna R RN system; 20 gauge; alissa stratton RN; distraction, intradermal injection, tolerated well, appears comfortable; basilic vein (medial side of arm), left; 10/19/16; 1307 ETT Mask Ventilation: Easy (1); 10/19/16 1004 by 1120 by Poli, ETT Type: Cuffed; ETT Size: 8 René Yeboah MD Monica A, MD mm; Mac Blade: 3; Notes: Asleep, Pre-O2, Cricoid Pressure, Stylette; Laryngoscopy Grade: 2; ETT Placement Verified By: Auscultation, Capnometry, Other (comments) (bronchoscopy); Secured at Teeth: 22 cm; Inserted by: poli documented in this encounter Social History Tobacco Use Types Packs/Day Years Used Date Current Every Day Smoker Cigarettes 2 52 Smokeless Tobacco: Never Used Comments: 3 cigarettes a day for last 25 years Sex Assigned at Date Recorded Female 07/30/2020 4:21 AM EDT documented as of this encounter OR Notes Anesthesia Postprocedure Evaluation - Yoanna Mclean MD - 10/19/2016 11:29 AM EDT [facility] Department of Anesthesiology Post-procedure Note Patient: Divya Lucas Procedure Summary Date Anesthesia Start Anesthesia Stop Room / Location 10/19/16 0942 1129 [facility] OR [facility] MA[facility] OR Procedure Diagnosis Surgeon Responsible Provider BRONCH, W ENDOBRONCHIAL ULTRASOUND (EBUS) GUIDED SAMPLING, 1/2 NODES (WRVU 4.71) (N/A ); ENDOSCOPY,UPPER GI, DIAGNOSTIC, WITH OR WITHOUT SPECIMENS (N/A ) Lung nodule, multiple (lung masses) Tunde Wang MD Chaimberg, Kathleen H, MD All Anesthesia Providers: Anesthesiologist: Katlyn Yeboah MD Brick Washer: Yoanna Mclean MD Last (1hr) Vitals: BP 127/66 (10/19/16 1125) Temp 35.8 ??C (96.4 ??F) (10/19/16 1122) Pulse Resp SpO2 99 % (10/19/16 1125) Patient Location: PACU/[facility] Level of Consciousness: Awake and Alert Pain Management: Satisfactory Analgesia PONV: Ongoing PONV/Being Treated Cardiovascular Status: At Baseline Respiratory Status: Stable Respiratory Status and Supplemental O2 (NC or FM) Postoperative Fluid Status: Intravascular EUvolemia Possible Anesthetic Complications: NONE apparent at time of evaluation Final Primary Anesthesia Type: General (The anesthetic type performed was the same as planned.) Comments: Anesthesia Preprocedure Evaluation - Yoanna Mclean MD - 10/18/2016 8:09 PM EDT Pre-Anesthesia Evaluation for: Divya Lucas a 65 y.o. female. Procedure(s): BRONCH, W ENDOBRONCHIAL ULTRASOUND (EBUS) GUIDED SAMPLING, 1/2 NODES (WRVU 4.71) There are no active problems to display for this patient. No past medical history on file. Past Surgical History: Procedure Laterality Date ??? PRO COLONOSCOPY, BIOPSY N/A 12/21/2014 COLONOSCOPY FLEXIBLE, WITH BX performed by Joaquin Freeman MD at [facility] ENDOSCOPY Social History Substance Use Topics ??? Smoking status: Current Every Day Smoker Packs/day: 2.00 Years: 52.00 Types: Cigarettes ??? Smokeless tobacco: Never Used Comment: 3 cigarettes a day for last 25 years ??? Alcohol use Not on file History Drug Use Not on file Allergies Allergen Reactions ??? Naproxen ??? Penicillins ??? Sulfa (Sulfonamide Antibiotics) Medications: MAR and/or home medications have been reviewed. Physical Exam: There were no vitals filed for this visit. There is no height or weight on file to calculate BMI. Airway Assessment: Mallampati: I TM distance: >3 FB Neck ROM: limited Cardiovascular Assessment: Rhythm: regular Pulmonary Assessment: PE comment: Distant breath sounds on right Dental Assessment: (+) upper dentures [facility] [place]: IV access: Peripheral line Anesthesia Plan: ASA 3 general, with a(n) intravenous induction Divya Lucas is a 65 y.o. 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 Wang. Patient's documented history was negative for seizures, CVA, cardiac disease,, hepatic/renal diseaseor coagulopathy. Hx of GERD. Denies YAMEL. There is no evidence of any recent URI symptoms, fevers/chills, or other signs of infection. Has been afebrile last 24 hours. -Hx of dysphagia, not on medications for MS. NPO Status: Reviewed and appropriate Meds: reviewed, atenolol, klonipin, wellbutrin, albuterol, lyrica Allergies: -- Naproxen -- Penicillins, cephalosporins -- Sulfa (Sulfonamide Antibiotics) Anesth hx: no previous issues, no airway on file EKG: none on file ECHO: none on file Labs: from OSH with cr 0.94, GFR>60 No results for input(s): WBC, HGB, HCT, PLATELET in the last 7068 hours. No results for input(s): NA, K, CL, CO2, BUN, CREATININE in the last 7068 hours. No results for input(s): AST, ALT, ALKPHOS, BILITOT, BILIDIR in the last 7068 hours. No results for input(s): PT, INR, PTT in the last 168 hours. Plan for GA with ETT; standard ASA monitoring. Adequate IV access. The patient was informed of the risks, benefits and alternatives of anesthesia. These risks included, but were not limited to, post-operative nausea and/or vomiting, pain, sore throat, dental/lip trauma, and other rare but serious complications such as major organ damage, awareness, severe allergic reactions, position-related nerve injuries, and need blood transfusions. All questions sought and answered. Consent was signed and placed in chart. Region - Other Informed Consent: Anesthetic plan and risks discussed with patient and spouse. Plan discussed with attending. PAT Staff Note documented in this encounter Plan of Treatment Upcoming Encounters Date Type Specialty Care Team Description 11/28/2021 Hospital Encounter Radiology Harlan Parmar MD [facility] DR HEMATOLOGY/ONCOLOGY DEPT. [place], [place] [address] (Wo rk) 11/28/2021 Appointment Radiology Harlan Parmar M D [facility] DR HEMATOLOGY/ONCOLOGY DEPT. [place], [place] [address] (Wo rk) 12/01/2021 Office Visit Hematology and Oncology Harlan Parmar MD [facility] DR HEMATOLOGY/ONCOLOGY DEPT. [place], [place] [address] (Wo rk) documented as of this encounter Visit Diagnoses Not on filedocumented in this encounter Administered Medications Inactive Administered Medications - up to 3 most recent administrations Medication Order MAR Action Action Date Dose Rate Site fentaNYL 50 mcg/mL multi-dose Given 10/19/2016 10:52 AM EDT 25 m cg injection PRN, Starting on Edna 10/19/16 at 1052, Until Edna 10/19/16 at 1129, Pain, Anesthesia Intra-op, Routine glycopyrrolate (ROBINUL) multi-dose Given 10/19/2016 11:09 AM ED T 0.8 mg injection PRN, Starting on Edna 10/19/16 at 1109, Until Edna 10/19/16 at 1129, Anesthesia Intra-op, Routine lactated Ringers infusion 1,000 mL New Bag 10/19/2016 9:27 AM EDT 1,000 mL, at 100 mL/hr, Intravenous, CONTINUOUS, Starting on Edna 10/19/16 at 0930, Until Edna 10/19/16 at 1308, Day of Surgery (Day of Procedure) midazolam (PF) (VERSED) 1 mg/mL multi-dose Given 10/19/2016 9:54 AM EDT 1 mg injection PRN, Starting on Edna 10/19/16 at 0954, Until Edna 10/19/16 at 1129, Sleep, Anesthesia Intra-op, Routine neostigmine (BLOXIVERZ) injection Given 10/19/2016 11:09 AM EDT 3 mg PRN, Starting on Edna 10/19/16 at 1109, Until Edna 10/19/16 at 1129, Anesthesia Intra-op, Routine ondansetron (ZOFRAN) injection Given 10/19/2016 11:11 AM EDT 4 mg PRN, Starting on Edna 10/19/16 at 1111, Until Edna 10/19/16 at 1129, Nausea, Anesthesia Intra-op, Routine PHENYLephrine HCl in NS (PF) Given 10/19/2016 10:59 AM EDT 80 mc g (JAY-SYNEPHRINE) 0.8 mg/10 mL (80 mcg/mL) multi-dose injection Syrg PRN, Starting on Edna 10/19/16 at 1041, Until Edna 10/19/16 at 1129, Anesthesia Intra-op, Routine Given 10/19/2016 10:41 AM EDT 40 mcg propofol (DIPRIVAN) 10 mg/mL bolus injection Given 9:54 AM EDT 100 mg (Anesthesia) PRN, Starting on Edna 10/19/16 at 0954, Until Edna 10/19/16 at 1129, Anesthesia Intra-op rocuronium (ZEMURON) multi-dose injectio n Given 10/19/2016 9:54 AM EDT 30 mg PRN, Starting on Edna 10/19/16 at 0954, Until Edna 10/19/16 at 1129, Anesthesia Intra-op, Routine documented in this encounter Care Teams Alignment Technician Relationship Specialty Start Date End Date Fernanda Evans APRN PCP - General Family Medicine 08/14/16 08/26/[address] [place] [address] [place] [address] documented as of this encounter
--- OUTSIDE RECORDS SUMMARY | 2021-11-25 00:31 | XMS_ITS | Encounter Summary ---
:1950 [place] [address] Care Team Providers Name Role Phone Nuha Evanscarlos eduardo Mobley APRN Primary Care Provider Encounter Details Date Type Department Care Team Description 10/19/2016 Hospital Encounter Same Day Program at [facility], [facility] Tunde Amado MD [facility] [address] [place] [id number] [phone] Social History Tobacco Use Types Packs/Day Years Used Date Current Every Day Smoker Cigarettes 2 52 Smokeless Tobacco: Never Used Comments: 3 cigarettes a day for last 25 years Sex Assigned at Date Recorded Female 07/30/2020 4:21 AM EDT documented as of this encounter Last Filed Vital Signs Vital Sign Reading Time Taken Comments Blood Pressure 123/50 10/19/2016 12:15 PM EDT Pulse 63 10/19/2016 9:09 AM EDT Temperature 35.8 ??C (96.4 ??F) 10/19/2016 11:22 AM EDT Respiratory Rate 18 10/19/2016 9:09 AM EDT Oxygen Saturation 96% 10/19/2016 12:15 PM EDT Inhaled Oxygen Concentration - - Weight 52.2 kg (115 lb 1.6 oz) 10/19/2016 9:09 AM EDT Height 154.9 cm (5' 1) 10/19/2016 9:09 AM EDT Body Mass Index 21.75 10/19/2016 9:09 AM EDT documented in this encounter Discharge Instructions Discharge InstructionsReina Cunha RN - 10/19/2016 11:58 AM EDT POST ANESTHESIA INSTRUCTIONS Go home, rest, use caution on stairs. Change positions slowly. Do not smoke if you are alone. Diet light to regular as tolerated today. If nausea occurs start with clear liquids and progress slowly. No driving, operating machinery, alcoholic beverages and no important decisions for 24 hours. Monitor IV site for signs and symptoms of infection: increasing redness, swelling, foul drainage, ifoccurs contact M.D. Patients who have had endotrachial tubes (this tube, used by anesthesia department, is passed down your throat after you are asleep, to ensure safe air passage during your operation). A sore throat is normal due to the tube. Cold liquids or soothing lozenges will help ease the discomfort. The generalized muscle aches are due to the medication given to you just before the tube is inserted. As the medication wears off, you may develop muscle soreness, which usually goes away in 12-24 hours. Patient InstructionsElvin Bennett PA - 10/19/2016 11:25 AM EDT Today you had bronchoscopy, endobronchial ultrasound for biopsy, and esophagogastroduodenoscopy. You may cough up a small amount of blood after the procedure. This is normal. If the amount of bloodbeing coughed up is bright red, clotting, or is increasing in amount (more than about 1 tablespoon),please call the clinic or go directly to the nearest emergency department. Call if you have difficulty breathing, shortness of breath, chest pain, a fever of greater than 101 degrees, shaking chills, or if you have questions. During normal business hours, Sunday- Sunday 8:00 a.m.-5:00 p.m., please call [phone] to speak to a nurse in the Thoracic Clinic. If you get an answering machine or it is after hours or on weekends or holidays please call [phone] and ask to speak to the Thoracic Physician aviation safety inspector. Diet: You should follow a regular diet as tolerated. Start slowly with liquids then work your way back up to normal foods. Smoking: If you are a smoker, please avoid smoking. If you are a smoker who needs help quitting, please call the thoracic surgery clinic at [phone]. Pain: You may have a sore throat after this procedure. Pain after this procedure is normal. The goalis for you to be able to tolerate pain so you can complete your daily activities. You may take over the counter pain medication such as acetaminophen or ibuprofen. If you are not having good pain control, please call and speak to the nurse in the Thoracic Clinic or the aviation safety inspector Attending Physician after hours. Follow up appointments: The thoracic surgery clinic will schedule your follow up in about 2 weeks. Please call the thoracic clinic at [phone] to confirm/reschedule your appointment. You will also likely get an appointment confirmation in the mail. If you have any questions or concerns during normal business hours, Sunday- Sunday 8:00 a.m.-5:00 p.m., please call [phone] to speak to a nurse in the Thoracic Surgery Clinic. If you get an answering machine or it is after hours or on weekends or holidays please call [phone] and ask to speakto the Thoracic Surgeon aviation safety inspector. documented in this encounter Medications at Time of Discharge Medication Sig Dispensed Refills Start Date End Date buPROPion (WELLBUTRIN XL) take 3 tablet by 0 08/31 300 mg Tablet Extended mouth once daily Release 24 hr EPINEPHrine 0.3 mg/0.3 mL Reported on 0 7 Auto-Injector 10/09/2016 clonazePAM (KLONOPIN) 1 0.5 mg. 0 10/25/2015 mg Tablet acetaminophen (TYLENOL) Take 2 tablets by 0 10/1909/18/2017 500 mg Tablet mouth every 6 hours as needed for Pain. atenolol (TENORMIN) 50 mg 0 09/14/2015 04/30/2017 Tablet documented as of this encounter Progress Notes Reina Cunha RN - 10/19/2016 12:45 PM EDT Portable Cxray done at bedside. paged, needs to clarify results with radiologist. 1300: MD at bedside, ok for discharge at this time. Void X2 without dysuria. Tolerating PO. documented in this encounter H&P Notes Elvin Bennett PA - 10/19/2016 9:00 AM EDT Thoracic Surgery Preop NAME: Divya Mobley Friend DATE: 10/19/16 SURGEON: TUNDE FREEMAN PROCEDURE: Bronchoscopy, endobronchial ultrasound for biopsy, and esophagogastroduodenoscopy BRIEF HISTORY: Divya Mobley Friend is a 65 y.o. female with FDG avid pulmonary masses and nodules, as well as Right hilar, mediastinal and gastrohepatic adenopathy. The patient reports no interval change. There has been no interval medical illness or hospitalizations. Questions have been addressed. Smoking HX: History Smoking Status ??? Current Every Day Smoker ??? Packs/day: 2.00 ??? Years: 52.00 ??? Types: Cigarettes Smokeless Tobacco ??? Never Used Comment: 3 cigarettes a day for last 25 years PMH: There are no active problems to display for this patient. PSH: Past Surgical History: Procedure Laterality Date ??? PRO COLONOSCOPY, BIOPSY N/A 12/21/2014 COLONOSCOPY FLEXIBLE, WITH BX performed by Joaquin Freeman MD at [facility] ENDOSCOPY MEDS: No current facility-administered medications on file prior to encounter. Current Outpatient Prescriptions on File Prior to Encounter Medication Sig Dispense Refill ??? buPROPion (WELLBUTRIN XL) 300 mg Tablet Extended Release 24 hr take 1 tablet by mouth once daily0 ??? clonazePAM (KLONOPIN) 1 mg Tablet ??? atenolol (TENORMIN) 50 mg Tablet ??? EPINEPHrine 0.3 mg/0.3 mL Auto-Injector Reported on 10/09/2016 0 ALL: Allergies Allergen Reactions ??? Naproxen ??? Penicillins ??? Sulfa (Sulfonamide Antibiotics) Physical Exam There were no vitals filed for this visit. Gen: NAD, pleasant, sitting up in bed HEENT: normocephalic, atraumatic, EOMI, sclerae anicteric Neck: supple, trachea midline Card: RRR, no M/R/G appreciated Pulm: CTAB, no wheeze/ronchi/rales appreciated, non-labored breathing on RA Abd: soft, NT, BS+ Ext: warm, dry, no edema Neuro: A&Ox3, CN II-XII grossly intact, nonfocal, conversant LABS: No results found for: NA, K, CL, CO2, BUN, CREATININE FILM ON PACS: Yes - PET, CT CONSENT: Yes/EMR - Yes Assessment/Plan: Divya Lucas is a 65 y.o. female presenting today for planned bronchoscopy, endobronchial ultrasound for biopsy, and esophagogastroduodenoscopy due to FDG avid pulmonary masses andnodules, as well as Right hilar, mediastinal and gastrohepatic adenopathy. Consent signed and confirmed in chart. Questions addressed. Will proceed with planned surgery. LASHAWN Hassan 10/19/2016 Thoracic Surgery Service Pager [phone] documented in this encounter Miscellaneous Notes Brief Op Note - Elvin Bennett PA - 10/19/2016 11:40 AM EDT Brief Operative Note Patient Name: Divya Lucas : [id number] MR#: [id number] Case Date: 10/19/2016 Surgeon: Surgeon(s) and Role: * Tunde Freeman MD - Primary * Elvin Bennett PA - Physician Seismic Interpreter Preoperative diagnosis: lung masses Postoperative diagnosis: lung masses Procedure(s) (LRB): BRONCH, W ENDOBRONCHIAL ULTRASOUND (EBUS) GUIDED SAMPLING, 1/2 NODES (WRVU 4.71) (N/A) ENDOSCOPY, UPPER GI, DIAGNOSTIC, WITH OR WITHOUT SPECIMENS (N/A) Anesthesia: General Findings: GEJ biopsied with EGD. Level 7, 10L, 10R lymph nodes biopsied by EBUS. Complications: none Estimated Blood Loss: * No values recorded between 10/19/2016 10:01 AM and 10/19/2016 11:06 AM * Fluids: Intraprocedure Crystalloid Total None PRBCs: none (See Anesthesia Record/Report for Other Blood Products) Urine Output: (no blood products) Drains: none Disposition: awakened from anesthesia, extubated and taken to the recovery room in a stable condition, having suffered no apparent untoward event. Condition: doing well without problems (Please see the Surgical Encounter Summary for any Implant and Specimen details pertinent to this patient.) Infection Bundle used? N/A Op Note - Tunde Freeman MD - 10/19/2016 11:35 AM EDT [facility] [place] Operative Note Patient Name: Divya Lucas : [id number] MR#: [id number] Case Date: 10/19/2016 Surgeon: Surgeon(s) and Role: * Tunde Freeman MD - Primary * Elvin Bennett PA - Physician Seismic Interpreter Preoperative diagnosis: lung masses Postoperative diagnosis: lung masses Procedure(s) (LRB): BRONCH, W ENDOBRONCHIAL ULTRASOUND (EBUS) GUIDED SAMPLING, 1/2 NODES (WRVU 4.71) (N/A) ENDOSCOPY, UPPER GI, DIAGNOSTIC, WITH OR WITHOUT SPECIMENS (N/A) Anesthesia: General Estimated Blood Loss: * No values recorded between 10/19/2016 10:01 AM and 10/19/2016 11:06 AM * Specimens removed during surgery: GE junction; level 7, level 10R, level 10L Drains: none Surgical Closure: n/a Disposition: awakened from anesthesia, extubated and taken to the recovery room in a stable condition, having suffered no apparent untoward event. Condition: doing well without problems (Please see the Surgical Encounter Summary for any Implant and Specimen details pertinent to this patient.) HPI/Surgical Indications: 65 year old woman with bilateral lung masses and hilar lymphadenopathy andFDG-uptake at GE junctio Procedure Description: The patient was brought to the operating room and placed on the table in supine position. General anesthesia was induced and she was endotracheally intubated. A hard stop surgical timeout confirmed the patient's identity and the nature and laterality of the procedures to be performed. Diagnostic bronchoscopy was then performed. The right-sided structures were anatomically normal without endobronchial lesions or excessive secretions. On the left, there was some erythema of the mucosa of the superior segment bronchus of the lower lobe with narrowing of the bronchial orifice also appreciated. The upper lobe structures were normal. The bronchoscope was withdrawn and the esophagoscope was easily passed through the cricopharyngeus and into the esophagus. It was advanced under direct vision into the stomach and then through the pylorus. The examined duodenum was normal. The scope was withdrawn into the stomach and retroflexed. There were no visible masses emanating from the GE junction on retroflexed view and the remainder of the gastric mucosa appeared normal. The air was removed and the esophagoscope was withdrawn into the distal esophagus. At the GE junction, there was a tiny amount of Caldera's mucosa, not extending past 38 cm. There was some subtle nodularity of the posterior aspect of the GE junction and biopsies were taken. The remainder of the esophagus was examined and no lesions or Caldera's mucosa were seen. The esophagoscope was withdrawn and the endobronchial ultrasound probed and placed. Echogenic material was identified in the subcarinal space and multiple needle biopsies were taken from both the left and right mainstem bronchi and labeled level VII lymph node. The bronchoscope was then advanced into the left mainstem bronchus and into the lower lobe bronchus and retroflexed just past the pulse of the aorta, which was readily visible with the ultrasound. Ecogenetic material was identified and multiple needle biopsies were obtained; no lesional tissue was confirmed. The bronchoscope was then advanced into the right mainstem bronchus and right hilar lymph nodes were biopsied at approximately the level of the upper lobe bronchus. The regular bronchoscope was then replaced and used to suction clear the remaining small amounts of adherent blood in the airway. The patient was then allowed to emerge from anesthesia before being extubated in the operating room, and transported to recovery area in stable condition. Counts were waved due to the endobronchial nature of this case, and as the attending surgeon, I was present at the bedside throughout. TUNDE FREEMAN MD 10/19/2016 documented in this encounter Plan of Treatment Upcoming Encounters Date Type Specialty Care Team Description 11/28/2021 Hospital Encounter Radiology Harlan Parmar MD [facility] HEMATOLOGY/ONCOLOGY DEPT. [place], [place] [address] (Wo rk) 11/28/2021 Appointment Radiology Harlan Parmar M D [facility] DR HEMATOLOGY/ONCOLOGY DEPT. [place], [place] [address] (Wo rk) 12/01/2021 Office Visit Hematology and Oncology Harlan Parmar MD [facility] DR HEMATOLOGY/ONCOLOGY DEPT. [place], [place] [address] (Wo rk) documented as of this encounter Procedures Procedure Name Priority Date/Time Associated Comments Diagnosis MOLECULAR GENETICS Routine 10/19/2016 2:26 PM Res ults for this REPORT EDT procedure are i n the results section. MOLECULAR GENETICS Routine 10/19/2016 2:26 PM Res ults for this REPORT EDT procedure are i n the results section. XR CHEST ONE VIEW Routine 10/19/2016 11:53 Result s for this AM EDT procedure are i n the results section. NON-FOREIGN STUDENT ADVISER FINAL REPORT Routine 10/19/2016 11:29 Res ults for this AM EDT procedure are i n the results section. NON-FOREIGN STUDENT ADVISER FINAL REPORT Routine 10/19/2016 11:27 Res ults for this AM EDT procedure are i n the results section. NON-FOREIGN STUDENT ADVISER FINAL REPORT Routine 10/19/2016 11:21 Res ults for this AM EDT procedure are i n the results section. NON-FOREIGN STUDENT ADVISER FINAL REPORT Routine 10/19/2016 11:21 Res ults for this AM EDT procedure are i n the results section. CYTOPATHOLOGY Routine 10/19/2016 10:52 Results fo r this NON-GYNECOLOGICAL AM EDT procedure are in the results section. CYTOPATHOLOGY Routine 10/19/2016 10:32 Results fo r this NON-GYNECOLOGICAL AM EDT procedure are in the results section. CYTOPATHOLOGY Routine 10/19/2016 10:10 Results fo r this NON-GYNECOLOGICAL AM EDT procedure are in the results section. SURGICAL PATHOLOGY Routine 10/19/2016 10:07 Resul ts for this REPORT AM EDT procedure are i n the results section. SPECIMEN TO PATHOLOGY Routine 10/19/2016 10:07 Re sults for this AM EDT procedure are i n the results section. ENDOSCOPY, UPPER GI, 10/19/2016 9:44 AM Lung nodule, DIAGNOSTIC, WITH OR EDT multiple WITHOUT SPECIMENS BRONCH, W 10/19/2016 9:44 AM Lung nodule, ENDOBRONCHIAL EDT multiple ULTRASOUND (EBUS) GUIDED SAMPLING, 1/2 NODES (WRVU 4.71) BRONCH, W Routine 10/19/2016 8:42 AM Lung nodule, ENDOBRONCHIAL EDT multiple ULTRASOUND (EBUS) GUIDED SAMPLING, 1/2 NODES MOLECULAR GENETICS Routine 10/19/2016 7:43 AM Res ults for this REPORT EDT procedure are i n the results section. documented in this encounter Results Molecular Genetics Report (10/19/2016 2:26 PM EDT) Component Value Ref Test Analysis Performed At [facility] Method Time Signature Molecular [id number] ?Location: [facility]; [facility]; [facility] The signing pathologist has (i) examined the relevant preparation(s) for the MEMORIAL specimen(s) and (ii) rendered or confirmed the diagnosis(es) . H[facility]PITAL [facility] . ?Molecu lar Genetics RESULTS SPECIMEN ANALYZED: ?? [id number] Solid Tumor Fusion Panel Analysis: ?? Examination of RNA extracted from formalin-fixed paraffin-embedded tumor tissue for gene fusion analysis. Results: ?? The submitted sp ecimen failed the Pre RNA extraction QC checkpoint, and was therefore not sufficien t for fusion analysis. ??If testing is warranted as per clinical indication, please contact the attending pathologist in order to resubmit an alternative tissue sample. Reviewed by: Lizet Rothman, PhD, [facility]-Seismic Interpreter [facility] ? 12/07/16 15:36 Reviewed by: Kevin julian, PhD, [facility], Director-CGAT ([facility],12/08/16 08:41) Electronically signed by: ??Kevin Turner PhD Verified: ??12/08/2016 ?Director, Molecular Pathology ?Molecu lar Genetics RESULTS Please refer to Cytopathology Report [id number] for final pathology diagnosis. INDICATION FOR STUDY: ?? Lym ph node, level 10L (EBUS-guided FNA) - Adenocarcinoma, compatible with a lung primary SPECIMEN ANALYZED: ?? [id number] Analysis: ??Examination of D NA extracted from formalin-fixed paraffin-embedded tumor tissue for somatic mutation analysis. Results: ??The quantity or q uality of DNA obtained from the submitted tissue sample was not sufficient for soma tic mutational analysis. ? If testing is warranted as per clinical indication, please contact the attending pathologist in order to resubmit an alternative tissue sample. Pathologist/Notification Date: ? ALINA / 11-03-2016 MG Pathologist/Notification Date: ?RAS / 11-03-2016 . RESULTS Reviewed by: Lizet Rothman, PhD, CGAT-Seismic Interpreter [facility] ? 11/03/16 16:21 Electronically signed by: ??Evangelista LUNA, Tati Johnson Verified: ??11/05/2016 ?Pathologist Specimen (Source) Anatomical Collection Method Collection Time Re ceived Time Location / / Volume Laterality 10/19/2016 2:26 PM EDT Tunde Freeman MD PATHOLOGY/CYTOLOGY ORDERABLE S Performing Organization Address City/State/[place] [address] Molecular Genetics Report (10/19/2016 2:26 PM EDT) Component Value Ref Test Analysis Performed At [facility] Method Time Signature Molecular [id number] ?Location: [place]; [place]40; A [facility] The signing pathologist has (i) examined the relevant preparation(s) for the MEMORIAL specimen(s) and (ii) rendered or confirmed the diagnosis(es) . H[facility]PITAL [facility] . ?Molecu lar Genetics RESULTS Please refer to Cytopathology Report [id number] for final pathology diagnosis. INDICATION FOR STUDY: ?? Lym ph node, level 10L (EBUS-guided FNA) - Adenocarcinoma, compatible with a lung primary SPECIMEN ANALYZED: ?? [id number] Analysis: ??Examination of D NA extracted from formalin-fixed paraffin-embedded tumor tissue for somatic mutation analysis. Results: ??The quantity or q uality of DNA obtained from the submitted tissue sample was not sufficient for soma tic mutational analysis. ? If testing is warranted as per clinical indication, please contact the attending pathologist in order to resubmit an alternative tissue sample. Pathologist/Notification Date: ? ALINA / 11-03-2016 MG Pathologist/Notification Date: ?RAS / 11-03-2016 Reviewed by: Lizet Rothman, PhD, CGAT-Seismic Interpreter [facility] ? 11/03/16 16:21 Electronically signed by: ??Evangelista LUNA, Tati Johnson Verified: ??11/05/2016 ?Pathologist Specimen (Source) Anatomical Collection Method Collection Time Re ceived Time Location / / Volume Laterality 10/19/2016 2:26 PM EDT Tunde Freeman MD PATHOLOGY/CYTOLOGY ORDERABLE S Performing Organization Address City/State/[place] [address] XR Chest PA or AP 1 view (10/19/2016 11:53 AM EDT) Anatomical Region Laterality Modality Chest N/A Digital Radiography Specimen (Source) Anatomical Location Collection Method / Collectio n Time Received Time / Laterality Volume Impressions 10/19/2016 11:58 AM EDT No pneumothorax seen. I have personally reviewed the image(s) and the residents interpretation and agree with the findings, Jo Ann espinoza 10/19/2016 11:58 AM Narrative 10/19/2016 11:58 AM EDT EXAMINATION: XR CHEST PA OR AP 1 VIEW CLINICAL HISTORY: s/p bronch, EBUS, EGD TECHNIQUE: AP portable chest radiograph COMPARISON: Chest radiograph 05/21/2016 FINDINGS: Bilateral pulmonary nodules/masses, bett er demonstrated on interval CT. No pleural effusion. No pneumothorax identi fied. The cardiomediastinal silhouette is within normal limits. No suspicious o sseous findings. Procedure Note Jo Ann Hill MD - 10/19/2016Formatt ing of this note might be different from the original. EXAMINATION: XR CHEST PA OR AP 1 VIEW CLINICAL HISTORY: s/p bronch, EBUS, EGD TECHNIQUE: AP portable chest radiograph COMPARISON: Chest radiograph 05/21/2016 FINDINGS: Bilateral pulmonary nodules/masses, bett er demonstrated on interval CT. No pleural effusion. No pneumothorax identi fied. The cardiomediastinal silhouette is within normal limits. No suspicious o sseous findings. IMPRESSION No pneumothorax seen. I have personally reviewed the image(s) and the residents interpretation and agree with the findings, Jo Ann espinoza 10/19/2016 11:58 AM Tunde Freeman MD IMG DX ORDERABLES Non-Ergonomics Technician Final Report (10/19/2016 11:29 AM EDT) Component Value Ref Test Analysis Performed At [facility] Method Time Signature Non-Ergonomics Technician Final [id number] ?Location: [facility]; [facility]; [facility] The signing pathologist has (i) examined the relevant preparation(s) for the MEMORIAL specimen(s) and (ii) rendered or confirmed the diagnosis(es) . HOSPITAL LAB[facility]ORY . ? No n-Ergonomics Technician Final DIAGNOSIS See Discussion Electronically signed by: ??Alina LUNA, Herbert Johnson Verified: ??10/21/2016 ?Cytopathologist DISCUSSION Lymph node: level 10R (EBUS-guided FNA) - Lymphoid cells, predominantl y small lymphocytes, present; compatible with lymph node sampling. Negative for metastatic carcinoma. (Cell block findings were incorporated into the diagnosis.) CLINICAL INFORMATION Specimen Source : Lymph node: level 10R (EBUS-guided FNA - assisted) Pertinent Clinical Data and Significant Therapy: Lung masses Clinical Impression: Lung masses Pertinent Radiologic Findings: (not provided) Gross Description: Received in Formalin, approx imately 45 mL total volume of cloudy, pink fluid, with clots. Total Preparation: Diff-Quik 3; Pap Stain 3; Cell Block 1. Specimen (Source) Anatomical Collection Method Collection Time Re ceived Time Location / / Volume Laterality 10/19/2016 11:29 AM EDT Tunde Freeman MD PATHOLOGY/CYTOLOGY ORDERABLE S Performing Organization Address City/State/[place] [address] Non-Ergonomics Technician Final Report (10/19/2016 11:27 AM EDT) Component Value Ref Test Analysis Performed At [facility] Method Time Signature Non-Ergonomics Technician [id number] ?Location: [facility]; [facility]; [facility] Final Report [place] The signing pathologist has (i) examined the relevant preparation(s) for the [facility] specimen(s) and (ii) rendered or confirmed the diagnosis(es) . HOSPITAL LABORATORY . ? No n-Ergonomics Technician Final DIAGNOSIS Positive for Malignancy Electronically signed by: ??Herbert Fuller MD Verified: ??10/21/2016 ?Cytopathologist DISCUSSION Lymph node: level 10L (EBUS-guided FNA) - Adenocarcinoma, compatible with a lung primary. Molecular studies are being ordered; results will be issued in a molecular pathology report. --- Immunohistochemistry Studies --- Interpretation: ? Formalin-fixed paraff in-embedded cell block sections are ? studied for CK7, CK20, TTF-1, and p40 using the po lymer technique with appropriate controls. The lesional cells are immunoreactive fo r CK7 and TTF-1; they are negative for CK20 and p40. These immunohistochemical st udies provide ancillary information and are used only in conjunction with standard diagnostic procedures. CLINICAL INFORMATION Specimen Source : Lymph node: level 10L (EBUS-guided FNA - assisted) Pertinent Clinical Data and Significant Therapy: Lung masses Clinical Impression: Lung masses Pertinent Radiologic Findings: (not provided) Gross Description: Received in Formalin, approx imately 50 mL total volume of cloudy, pink fluid, with clots. Total Preparation: Diff-Quik 3; Pap Stain 3; Cell Block 1. Specimen (Source) Anatomical Collection Method Collection Time Re ceived Time Location / / Volume Laterality 10/19/2016 11:27 AM EDT Tunde Freeman MD PATHOLOGY/CYTOLOGY ORDERABLE S Performing Organization Address City/State/[place] [address] Non-Ergonomics Technician Final Report (10/19/2016 11:21 AM EDT) Component Value Ref Test Analysis Performed At [facility] gist Range Method Time Signature Non-Ergonomics Technician Final [id number] ?Location: [facility]; [facility]; A [facility] The signing pathologist has (i) examined the relevant preparation(s) for the [facility] specimen(s) and (ii) rendered or confirmed the diagnosis(es) . HOSPITAL LABORATORY . ? Addendum ADDENDUM DISCUSSION SPECIAL TEST - FAILED: Test Requested: ??PD-L1 [facility] Case: ??[id number] Reported by: ?? Sam Webb MD Date reported: ??11/17/16 Additional information/comme nts: ??Insufficient tumor tissue for PD-L1 testing. NOTE: ??Notices received of tests not performed or failed are not scanned into the patient 's file unless othe rwise requested. ??This may be the only reference to an attempted special test for this specimen. Electronically signed by: ??Sam Webb MD Verified: ??11/21/2016 ?Pathologist ? No n-Ergonomics Technician Final DIAGNOSIS Positive for Malignancy Electronically signed by: ??Herbert Fuller MD Verified: ??10/21/2016 ?Cytopathologist DISCUSSION Lymph node: level 7 (EBUS-guided FNA) - Compatible with adenocarcinoma. The tumor cells resemble tho se present in the concurrent level 10L lymph node FNA. (Cell block findings were incorporated into the diagnosis.) CLINICAL INFORMATION Specimen Source : Lymph node: level 7 (EBUS-guided FNA - assisted) Pertinent Clinical Data and Significant Therapy: Lung masses Clinical Impression: Lung masses Pertinent Radiologic Findings: (not provided) Gross Description: Received in Formalin, approx imately 50 mL total volume of cloudy, red fluid, with clots. Total Preparation: Diff-Quik 5; Pap Stain 5; Cell Block 1. Specimen (Source) Anatomical Collection Method Collection Time Re ceived Time Location / / Volume Laterality 10/19/2016 11:21 AM EDT Tunde Freeman MD PATHOLOGY/CYTOLOGY ORDERABLE S Performing Organization Address City/State/[place] [address] Non-Ergonomics Technician Final Report (10/19/2016 11:21 AM EDT) Component Value Ref Test Analysis Performed At [facility] Range Method Time Signature Non-Ergonomics Technician Final [id number] ?Location: [facility]; [facility]; A [facility] The signing pathologist has (i) examined the relevant preparation(s) for the [facility] specimen(s) and (ii) rendered or confirmed the diagnosis(es) . HOSPITAL LABORATORY . ? No n-Ergonomics Technician Final DIAGNOSIS Positive for Malignancy Electronically signed by: ??Herbert Fuller MD Verified: ??10/21/2016 ?Cytopathologist DISCUSSION Lymph node: level 7 (EBUS-guided FNA) - Compatible with adenocarcinoma. The tumor cells resemble tho se present in the concurrent level 10L lymph node FNA. (Cell block findings were incorporated into the diagnosis.) CLINICAL INFORMATION Specimen Source : Lymph node: level 7 (EBUS-guided FNA - assisted) Pertinent Clinical Data and Significant Therapy: Lung masses Clinical Impression: Lung masses Pertinent Radiologic Findings: (not provided) Gross Description: Received in Formalin, approx imately 50 mL total volume of cloudy, red fluid, with clots. Total Preparation: Diff-Quik 5; Pap Stain 5; Cell Block 1. Specimen (Source) Anatomical Collection Method Collection Time Re ceived Time Location / / Volume Laterality 10/19/2016 11:21 AM EDT Tunde Freeman MD PATHOLOGY/CYTOLOGY ORDERABLE S Performing Organization Address City/[facility]/ZIP Code Phon e Number [address] Cytopathology Non-Gynecological (10/19/2016 10:52 AM EDT) Specimen Anatomical Collection Method Collection Time Receive d Time (Source) Location / / Volume Laterality AP Specimen 10/19/2016 10:52 10/19/2016 AM EDT 10:52 AM EDT Narrative [facility] OR - 10/19/2016 10:52 AM EDT Specimen requisition ordered. ??Separate Pathology report to follow Tunde Freeman MD PATHOLOGY/CYTOLOGY ORDERABLE S Performing Organization Address City/[facility]/[place] [address] Cytopathology Non-Gynecological (10/19/2016 10:32 AM EDT) Specimen Anatomical Collection Method Collection Time Receive d Time (Source) Location / / Volume Laterality AP Specimen 10/19/2016 10:32 10/19/2016 AM EDT 10:32 AM EDT Narrative [facility] ORY - 10/19/2016 10:32 AM EDT Specimen requisition ordered. ??Separate Pathology report to follow Tunde Freeman MD PATHOLOGY/CYTOLOGY ORDERABLE S Performing Organization Address City/[facility]/[place] [address] Cytopathology Non-Gynecological (10/19/2016 10:10 AM EDT) Specimen Anatomical Collection Method Collection Time Receive d Time (Source) Location / / Volume Laterality AP Specimen 10/19/2016 10:10 10/19/2016 AM EDT 10:10 AM EDT Narrative [facility] LABORAT ORY - 10/19/2016 10:10 AM EDT Specimen requisition ordered. ??Separate Pathology report to follow Tunde Freeman MD PATHOLOGY/CYTOLOGY ORDERABLE S Performing Organization Address City/State/ZIP Code Phon [place] [address] Surgical Pathology Report (10/19/2016 10:07 AM EDT) Component Value Ref Test Analysis Performed At [facility] gist Range Method Time Signature Surgical [id number] ?Location: [facility]; [facility]; A [facility] Report The signing pathologist has (i) examined the relevant preparation(s) for the [facility] specimen(s) and (ii) rendered or confirmed the diagnosis(es) . HOSPITAL LABORATORY . ?Surgic al Pathology DIAGNOSIS GE junction, biopsy: Acute nonspecific gastritis. No evidence of malignancy. No H. pylori-like microorganism is seen. GMS stain is negative for fungal organisms. Electronically signed by: ??Hermelindo Whitley MD Verified: ??10/24/2016 ?Pathologist ADDITIONAL STUDIES Immunohistochemistry Studies: Formalin-fixed, paraffin-emb edded tissue sections are studied using the polymer system technique with appro priate positive and negative controls. ?These IHC studies provide the pathologist wit h adjunctive diagnostic information. Antibody specificity has been verified by testin g antibodies on a series of in-house tissues with known immunohistochemical perform ance characteristics. The clinical interpretation of any antibody positive stain ing or its absence is evaluated within the context of clinical presentation, morp hology, histopathological criteria and other diagnostic tests. Block ? Antibody ?Result (Positive /Negative) A1 ? H. pylori ?Negative CLINICAL INFORMATION Specimen Submitted: A - Biopsy GE junction Clinical History: Lung masses Clinical Diagnosis: Same SPECIMEN PROCESSING A - Labeled/Fixative: Biopsy GE junction, fresh. Quantity/Size: Two, averaging 0.2 cm. Tissue Description: ??Soft, husain-white tissue ??. Sections/Processing: (T1) ??ejr Specimen (Source) Anatomical Collection Method Collection Time Re ceived Time Location / / Volume Laterality 10/19/2016 10:07 AM EDT Tunde Freeman MD PATHOLOGY/CYTOLOGY ORDERABLE S Performing Organization Address City/[facility]/ZIP Code Phon e Number [address] Specimen to Pathology (surgical or derm) (10/19/2016 10:07 AM EDT) Specimen Anatomical Collection Method Collection Time Receive d Time (Source) Location / / Volume Laterality AP Specimen 10/19/2016 10:07 10/19/2016 AM EDT 10:07 AM EDT Narrative [facility] LABORAT OR[facility] - 10/19/2016 10:07 AM EDT Specimen requisition ordered. ??Separate Pathology report to follow Tunde Freeman MD PATHOLOGY/CYTOLOGY ORDERABLE S Performing Organization Address City/[facility]/[place] [address] Molecular Genetics Report (10/19/2016 7:43 AM EDT) Component Value Ref Test Analysis Performed At [facility] gist Range Method Time Signature Molecular [id number] ? Location: [facility]; [facility]; [facility] The signing pathologist has (i) examined the relevant preparation(s) for the [facility] specimen(s) and (ii) rendered or confirmed the diagnosis(es) . HOSPITAL LABORATORY . ?Molecu lar Genetics RESULTS Please refer to Cytopatholog y Report [id number] for final pathology diagnosis. INDICATION FOR STUDY: ?? Lym ph node, level 7 (EBUS-guided FNA) - Compatible with adenocarcinoma SPECIMEN ANALYZED: ?? [id number] A1 Solid Tumor Fusion Panel Analysis: ?? Examination of RNA extracted from formalin-fixed paraffin-embedded tumor tissue for gene fusion analysis. Results: ?? No Gene fusions were identified in the submitted sample. Interpretation: ?? After rev iew of the pathology report and slides, the specimen ( [id number]) was selected for fusion analysis using a panel of 53 cancer related genes. Therapeutic options related to the presence or absence of mutations should be carefully assessed. ??Av ailability of other therapeutic indications and clinical trials may be possible. Consider presenting at the [facility] Molecular Tumor Board for further interpretation and discussion by contacting ?? [email or web address] Methods: ?? Solid Tumor Fusi on Panel ??- Hematoxylin and eosin (H ??&E) stained slides for each sample were review ed by an attending pathologist to determine the tumor area and estimate the perce nt of neoplastic cells present in the tissue. ??RNA was extracted from macro-dissec benson FFPE tissue sections using the AllPrep DNA/RNA FFPE Kit. ??RNA was converted to cDNA, and sample quality was assessed using a qPCR assay, requiring a minimum cycle t hreshold (Ct) value of 29. ??Preparation of libraries was performed by a fully tr ained [facility] technologist using a clinically validated TouchFrame Solid Slick or Panel assay protocol. ??A total of five Township Clerk Checkpoints (QC Checkpoints ) were established: (1) QC1: pre RNA extraction, (2) QC2: RNA quantification, (3) QC3 : RNA quality, (4) QC4: library quantification, and (5) QC5: post-sequencing metrics. Sequencing was performed on an Illumina MiSeq or MiSeqDX instrument using 150bp paired-end sequencing reads with a minimum of 3.0 million sequencing reads per sample. ??The minimum fusio n detection limit was 5%. ??Novel fusions were confirmed using a laboratory develope d procedure. ??Sequencing reads were aligned to the hg19 reference genome build, and analyzed using the 21GRAMS Analysis ?TM Software. ??Variant were reviewed and curated u sing both peer-reviewed literature and publicly available databases. ??Sources are eleno lala below and in the references section of this report. http://www.mycancergenome.org https://ckb.iva.org/gene/grid https://targetedcancercare.massgeneral.org/Bq-Yefxg-Rdqvv.as px . RESULTS The 53 genes assessed by the Solid Tumor Fusion assay include: ? AKT3, ALK, LHPYRO98, MURIEL, BRAF, BRD3, BRD4, EGFR , ERG, ESR1, ETV1, ETV4, ETV5, ETV6, EWSR1, FGFR1, FRFR2, FGFR3, FGR, INSR, MAML2, MA ST1, MAST2, MET, MSMB, MUSK, MYB, NOTCH1, NOTCH2, NRG1, NTRK1, NTRK2, NTRK3, NUMBL, NUTM1, PDGFRA, PDGFRB, PIK3CA, PKN1, PPARG, PRKCA, PRKCB, RAF1, RELA, RET, ROS 1, RSPO2, RSPO3, TERT, TFE3, TFEB, THADA, and TMPRSS2. While DNA testing is very ac curate, rare diagnostic errors due to various pre- and post-analytical variables d o occur. This test was developed and its performance characteristics determined by the [facility] Technology ? (CGAT) Laboratory at [facility]. It has not been cleared or approved by the FDA. The laboratory is regulated under CLIA as qualified to perform high-complexity testing. This test is used for clinical purpos es. It should not be regarded as investigational or for research. Assay Limitations : (1) Muta tions outside the target region and below the limit of detection will not be detected. References: ?1. ??Olivia Humphries Mertens F. The impact of translocations and gene ? fusions on cancer causation. Nature Reviews Cancer 2007;7:233-245. ?2. ??Robbie Menchaca,Bhumi T, Nikolay Ly. The emerging complexity of ? gene fusions in cancer. Nature Reviews Cancer 2015 ;15:371-381. Reviewed by: Lizet Rothman, PhD, CGAT-Seismic Interpreter Direc tor ?01/12/17 15:10 Reviewed by Kevin jones, PhD, HCLD, Director-[facility] (gjt, 01/15/17 07:38) Electronically signed by: ??Johnny Guallpa, Kevin Johnson Verified: ??01/15/2017 ?Director, Molecular Pathology Performed at: ??[facility], [address] [facility] ?Molecu lar Genetics RESULTS Please refer to Cytopatholog y Report for final pathology diagnosis. INDICATION FOR STUDY: ?? Lym ph node, level 7 (EBUS-guided FNA) - Compatible with adenocarcinoma SPECIMEN ANALYZED: ?? A1 Analysis: ??Examination of D NA extracted from formalin-fixed paraffin-embedded tumor tissue for somatic mutation analysis. Results: ??The following gen e variants were identified in the submitted tissue: CLINICALLY ACTIONABLE VARIANTS: BRAF: ??NEGATIVE EGFR: ??NEGATIVE KRAS: ??MUTATION c.34G> T p.G12C Exon 2 . RESULTS PIK3CA: ??NEGATIVE OTHER DETECTED VARIANTS: N/A Interpretation: ?? After rev iew of the pathology report and slides, the specimen ( A1) was brodie cted for mutation analysis from a panel of 50 genes. The results of this test in dicate that tumor cells comprising 20.0% of the tissue specimen analyzed were normal for hotspots in t he BRAF, EGFR, PIK3CA, and 46 other genes. 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 The G12C mutation suggests that this patient may not benefit from anti-EGFR therapy. Recent studies have shown t hat patients with G12C or G12V mutations have increased sensitivity to MEK inhibito rs compared with tumors carrying other KRAS mutations (Luis et al, 2015). ??Therapeutic opti ons related to the presence or absence of mutations should be carefully assessed. Avai lability of other therapeutic indications and clinical trials may be possible. These results may indicate clinical trial chanel parmar; consider presenting at the [facility] Molecular Tumor Board for further interpreta tion and discussion by contacting ??[email or web address] ??. For additional information on clinically actionable variants, please visit the following websites: http://www.mycancergenome.org/content/disease/lung-cancer http://www.nccn.org/professionals/physician_gls/f_guidelines .asp Methods: ??Genomic DNA was e xtracted from formalin-fixed paraffin-embedded tumor tissue. DNA sequencing was performed using the 50-gene Cancer Hotspot Panel (OnAir Player) for each gene repo rted. ??Sequences were aligned to the hg19 (GRCh37) reference genome. ??This pa coleman is designed to examine previously described and recurring somatic mutations in human tumors. ? Next-generation sequencing analysis of these genes was further confirmed by other assays during validation in our CLIA-certified laboratory. ? Normal (non-tumor) tissue from this patient has not been tested, therefore, the possibility of any detected mutations being a germline mutation cannot be ruled out. The genes assessed by the [facility] Hotspot Panel v2 include: ABL1, AKT1, ALK, APC, DOUG, BRAF, CDH1, CDKN2A, CSF1R, CTNNB1, EGFR, ERBB2, ERBB4, EZH2, FBXW7, FGFR1, FGFR2, FGFR3, FLT3, GNA11, GNAQ, G YAJAIRA, HNF1A, HRAS, IDH1, IDH2, JAK2, JAK3, KDR, KIT, KRAS, MET, MLH1, MPL, NOTCH1, NPM 1, NRAS, PDGFRA, PIK3CA, PTEN, PTPN11, RB1, RET, SMAD4, SMARCB1, SMO, SRC, STK11, TP53, and VHL. While DNA testing is very ac curate, rare diagnostic errors due to various pre- and post-analytical variables d o occur. This test was developed and its performance characteristics determined by the [facility] Technology ? (CGAT) Laboratory at [facility]. It has not been cleared or approved by the FDA. The laboratory is regulated under CLIA as qualified to perform high-complexity testing. This test is used for clinical purpos es. It should not be regarded as investigational or for research. References : ??magi Art. J Mol Diagn. 2013 May 15(2):234-247; Satnam Holm al. J Mol Diagn 2013 May 15(2):171-176; Mario RR et al. J Mol Diagn 2013 Dec 15(5):607-622; Johnny GJ, et al. Clin Chem Lab Med Mar 03;13:1-8. Reviewed by: Lizet Rothman, PhD, CGAT-Seismic Interpreter [facility] . RESULTS ?11/18/16 15:13 Electronically signed by: ??Gutierrez LUNA, Hermelindo Welsh Verified: ??11/20/2016 ?Pathologist Specimen (Source) Anatomical Collection Method Collection Time Re ceived Time Location / / Volume Laterality 10/19/2016 7:43 AM EDT Tunde Freeman MD PATHOLOGY/CYTOLOGY ORDERABLE S Performing Organization Address City/State/ZIP Code Phon e Number [place] [id number] HOSPITAL LAB[address] documented in this encounter Visit Diagnoses Diagnosis Lung nodule, multiple Other nonspecific abnormal finding of kavita ng field documented in this encounter Administered Medications Inactive Administered Medications - up to 3 most recent administrations Medication Order MAR Action Action Date Dose Rate Site acetaminophen (TYLENOL) 650 Given 10/19/2016 12:00 PM EDT 1,000 mg mg/20.3 mL oral liquid 1 dose, Starting on Edna 10/19/16 at 1147, Until Edna 10/19/16 at 1200, REINA CUNHA: cabinet override acetaminophen (TYLENOL) tablet 1,000 mg 1,000 mg, Oral, EVERY 6 HOURS PRN, Starting on Edna 7 0 at 1124, Until Edna 10/19/16 at 1507, Pain, Maximum dose of a cetaminophen is 4000 mg from all sources in 24 hours., Routine fentaNYL 50mcg/mL injection 25 mcg, Intravenous, EVERY 5 MIN PRN, St arting on Edna 10/19/16 at 1120, Until Edna 10/19/16 at 1308, Pain, for 1-4 pain scor e, for 1-4 pain score Hold for respiratory rate less than 10 per minute. Maximum do se: 250 mcg over one hour., PACU Recovery, Routine fentaNYL 50mcg/mL injection 50 mcg, Intravenous, EVERY 5 MIN PRN, St arting on Edna 10/19/16 at 1120, Until Edna 10/19/16 at 1308, Pain, for 5-10 pain score, for 5-10 p ain score Hold for respiratory rate less than 10 per minute. Maximum dose : 250 mcg over one hour., PACU Recovery, Routine lactated Ringers infusion 1,000 mL New Bag 10/19/2016 9:27 AM EDT 1,000 mL, at 100 mL/hr, Intravenous, CONTINUOUS, Starting on Edna 10/19/16 at 0930, Until Edna 10/19/16 at 1308, Day of Surgery (Day of Procedure) lidocaine (XYLOCAINE) 10 mg/mL (1 %) inj ection 3 mg 3 mg (0.3 mL), Subcutaneous, ONCE PRN, 1 dose, Startin g on Edna 10/19/16 at 0914, Until Edna 10/19/16 at 1308, for discomfor t with PIV insertion, Day of Surgery (Day of Procedure), Routine ondansetron (ZOFRAN) injection 4 mg Given 10/19/2016 11:34 AM EDT 4 mg 4 mg, Intravenous, EVERY 30 MIN PRN, Starting on Edna 10/19/16 at 1120, Until Edna 10/19/16 at 1308, Nausea, May repeat 4 mg once in 30 minutes. If multiple antiemetics ordered, use ondansetron first and if ineffective use prochlorperazine second and if ineffective use promethazine, PACU Recovery sodium chloride 0.9 % flush 5-20 mL 5-20 mL, Intravenous, EVERY 1 MIN PRN, S tarting on Edna 10/19/16 at 0914, Until Edna 10/19/16 at 1308, flush, Flush pertains t o all indwelling lines. Flush per protocol found in the job aid using the link provided on this m edication record., Day of Surgery (Day of Procedure), Routine documented in this encounter Active and Recently Administered Medications Times are shown in EDT. Scheduled Medication Order 10/17/2016 10/18/2016 10/19/2016 heparin (porcine) subcutaneous injection 5,000 Units 1000 (Due) 5,000 Units, Subcutaneous, DAIRY EQUIPMENT MECHANIC TO O. R., 1 dose, [facility] 10/19/16 at 1000, Routine Continuous Medication Order 10/17/2016 10/18/2016 10/19/2016 lactated Ringers infusion 1,000 mL 0927 (New Bag - Provider: Yoanna Mclean MD)1129 (Stopped - Provider: Yoanna Mclean MD) 1,000 mL, at 100 mL/hr, Intravenous, CON TINUOUS, Starting Edna 10/19/16 at 0930, Until Edna 10/19/16 at 1308, Day of Surgery (Day of Procedure) PRN Medication Order 10/17/2016 10/18/2016 10/19/2016 acetaminophen (TYLENOL) tablet 1,000 mg 1152 (Not Given - Provider: Reina Cunha RN - Reason: See comment - Comment: patient unable to take tablet) 1,000 mg, Oral, EVERY 6 HOURS PRN, Start ing Edna 10/19/16 at 1124, Until Edna 10/19/16 at 1507, Pain, Maximum dose of acetaminophen is 4000 mg from all sources in 24 hours., Routine fentaNYL 50mcg/mL injection(Linked Group 1) 25 mcg, Intravenous, EVERY 5 MIN PRN, St arting Edna 17 at 1120, Until Edna 717 at 1308, Pain, for 1-4 pain score, for 1-4 pain score Hold for respiratory rate less than 10 per minute. Maximum dos e: 250 mcg over one hour., PACU Recovery, Routine fentaNYL 50mcg/mL injection(Linked Group 1) 50 mcg, Intravenous, EVERY 5 MIN PRN, St arting Edna 17 at 1120, Until Edna 10/19/16 at 1308, Pain, for 5-10 pain score, for 5-10 pain score Hold for respiratory rate less than 10 per minute. Maximum d ose: 250 mcg over one hour., PACU Recovery, Routine HYDROmorphone (DILAUDID) syringe 0.2-0.4 mg 0.2-0.4 mg, Intravenous, EVERY 5 MIN PRN , Starting Edna 717 at 1120, Until Edna 717 at 1308, Pain, For moderate pain (4-6) give: 0.2 mg every 5 minute prn For severe pain (7-10) give: 0.4 mg every 5 minutes prn Maximum dose: 4 mg per ho ur Hold for respiratory rate less than 10 per minute., PACU Recovery, Routine lidocaine (XYLOCAINE) 10 mg/mL (1 %) injection 3 mg 3 mg (0.3 mL), Subcutaneous, ONCE PRN, 1 dose, Starting Edna 10/19/16 at 0914, Until Edna 7 at 1308, for discomfort with PIV insertion, Day of Surgery (Day of Procedure), Routine naloxone (NARCAN) injection 0.04 mg 0.04 mg, Intravenous, EVERY 5 MIN PRN, S tarting Edna 7 at 1120, Until Edna 7 at 1308, Opioid Reversal, for respiratory rate less than 6 or unresponsive., May repeat every every 5 minutes to in crease respiratory rate. DO NOT exceed 0 .12 mg total dose. Notify anesthesia immediately if administered., PACU Recovery, Routine ondansetron (ZOFRAN) injection 4 mg 1134 (Given - Provider: Reina Cunha RN) 4 mg, Intravenous, EVERY 30 MIN PRN, Sta rting Edna 7 at 1120, Until Edna 7 at 1308, Nausea, May repeat 4 mg once in 30 minutes. If multiple antiemetics ordered, use ondansetron first and if ineffective use prochlorperazine second and if ineffective use promethazine, PACU Recovery promethazine (PHENERGAN) injection 6.25 mg 6.25 mg, Intravenous, EVERY 30 MIN PRN, 2 doses, Starting Edna 10/19/16 at 1120, Until Edna 10/19/16 at 1308, Nausea, VESICANT - Dilute with a minimum of 10 mL saline. LARGE VEIN only. Inject over 10 minute s into the farthest port of a running IV infusion. Remain with the patient and STOP infusion immediately if patient reports burning. Avoid extravasation. If multiple antiemetics are ordered, use onda nsetron first and if ineffective use pro chlorperazine second and if ineffective use promethazine., PACU Recovery, Routine sodium chloride 0.9 % flush 5-20 mL 5-20 mL, Intravenous, EVERY 1 MIN PRN, S tarting [facility] 10/19/16 at 0914, Until Edna 7 at 1308, flush, Flush pertains to all indwelling lines. Flush per protocol found in the job aid using the link prov ided on this medication record., Day of Surgery (Day of Procedur e), Routine No Frequency Medication Order 10/17/2016 10/18/2016 10/19/2016 acetaminophen (TYLENOL) 650 mg/20.3 mL oral liquid (COMPLETED) 1200 (Given - Provider: Reina Cunha RN) 1 dose, Starting Edna 10/19/16 at 1147, Un til Edna 10/19/16 at 1200, REINA CUNHA: cabinet override Linked Groups Order Group 1: fentaNYL 50mcg/mL injectionJump to med 25 mcg, Intravenous, EVERY 5 MIN PRN, St arting Edna 10/19/16 at 1120, Until Edna 10/19/16 at 1308, Pain, for 1-4 pain score
for 1-4 pain score Hold for respiratory rate less than 10 per mi nute. Maximum dose: 250 mcg over on e hour.
PACU Recovery, Routine Or fentaNYL 50mcg/mL injectionJump to med 50 mcg, Intravenous, EVERY 5 MIN PRN, St arting Edna 10/19/16 at 1120, Until Edna 10/19/16 at 1308, Pain, for 5-10 pain score
for 5-10 pain score Hold for respiratory rate less than 10 per minute. Maximum dose: 250 mcg over one hour.
PACU Recovery, Routine documented in this encounter Care Teams General Production Worker Relationship Specialty Start Date End Date Fernanda Evans APRN PCP - General Family Medicine 08/14/16 08/26/[address] [place] [address] documented as of this encounter
--- OUTSIDE RECORDS SUMMARY | 2021-11-25 00:31 | XMS_ITS | Encounter Summary ---
:1950 [place] [address] Care Team Providers Name Role Phone Eric Chavez MD Primary Care Provider Encounter Details Date Type Department Care Team Description 05/21/2016 Hospital Encounter Radiology Library at [facility], Itz Rivera MD [facility] [place] [address] [place] [address] [phone] (Wo rk) Social History Tobacco Use Types Packs/Day Years Used Date Never Assessed Sex Assigned at Date Recorded Female 07/30/2020 4:21 AM EDT documented as of this encounter Medications at Time of Discharge Medication Sig Dispensed Refills Start Date End Date clonazePAM (KLONOPIN) 1 0.5 mg. 0 10/25/2015 [...] Encounter Radiology Harlan Parmar MD [facility] DR HEMATOLOGY/ONCOLOGY DEPT. [place], [place] [address] (Wo rk) 11/28/2021 Appointment Radiology Harlan Parmar M D [facility] DR HEMATOLOGY/ONCOLOGY DEPT. [place], [place] [address] (Wo rk) 12/01/2021 Office Visit Hematology and Oncology Harlan Parmar MD [facility] DR HEMATOLOGY/ONCOLOGY DEPT. [place], [place] [address] (Wo rk) documented as of this encounter Procedures Procedure Name Priority Date/Time Associated Diagnosis Comme nts FILM LIBRARY Routine 05/21/2016 12:00 AM Pain Results for this STORAGE ONLY DX EST procedure ar e in CHEST the results section. documented in this encounter Results Film Library- Storage Only DX Chest (05/21/2016 12:00 AM EST) Specimen (Source) Anatomical Location Collection Method / Collectio n Time Received Time / Laterality Volume Narrative RAD - 08/11/2016 3:53 PM EDT This exam is for storage only and is aut o-finalizing. Shakira Rivera MD IMG FILM LIBRARY ORDERABLES Performing Organization Address City/State/ZIP Code Phon e Number RAD [place], [place] documented in this encounter Visit Diagnoses Diagnosis Pain Generalized pain documented in this encounter Care Teams Cigar Packer And Grader Relationship Specialty Start Date End Date Eric Chavez MD PCP - General 02/22/10 08/13/[address] [place] [address] [place] [address] documented as of this encounter
--- OUTSIDE RECORDS SUMMARY | 2021-11-25 00:31 | XMS_ITS | Encounter Summary ---
:1950 Author Organization [facility] [place] [address] Care Team Providers Name Role Phone Eric Chavez MD Primary Care Provider Encounter Details Date Type Department Care Team Description 12/21/2014 Surgery Gastroenterology at [facility] Joaquin Freeman, COLONOSCOPY FLEXIBLE, [facility] Chasity chacon MD WITH BX (WRVU 3.66) [place] [address] [facility] [phone] DR GASTROENTEROLOGY [place] [id number] Social History Tobacco Use Types Packs/Day Years Used Date Never Assessed Sex Assigned at Date Recorded Female 07/30/2020 4:21 AM EDT documented as of this encounter Last Filed Vital Signs Vital Sign Reading Time Taken Comments Blood Pressure 98/50 12/21/2014 5:05 PM EDT Pulse 71 12/21/2014 5:05 PM EDT Temperature 36.6 ??C (97.9 ??F) 12/21/2014 3:14 PM EDT Respiratory Rate 14 12/21/2014 5:05 PM EDT Oxygen Saturation 99% 12/21/2014 5:05 PM EDT Inhaled Oxygen Concentration - - Weight - - Height - - Body Mass Index - - documented in this encounter Discharge Instructions Discharge InstructionsKacy West RN - 12/21/2014 5:08 PM EDT Colonoscopy What to expect after the procedure You may feel a little more gassy or bloated than usual. This is normal. You should expect the return of normal bowel function in the 2 to 3 days. Activity Because of the sedation that you received your judgement and reaction time are effected ?? Go home and rest quietly for the remainder of the day. You may resume your normal activities tomorrow. ?? Change from one position to the next slowly. You may lose your balance unexpectedly ?? Be careful on stairs, as you may be unsteady on your feet FOR THE NEXT 24 HRS ?? DO NOT DRIVE OR OPERATE ANY MACHINERY ?? DO NOT DRINK ALCOHOLIC BEVERAGES ?? DO NOT SIGN LEGAL DOCUMENTS ?? If you are a smoker: DO NOT SMOKE WHILE YOU ARE ALONE Diet ?? Start by eating small portions of foods that ordinarily will not upset your stomach . Avoid gas producing foods for the next few days ?? Be gentle with what you choose to start with ?? Drink plenty of fluids ( unless your doctor has told you not to). IV SITE-- slight redness, or tenderness is normal. You can use warm compresses if you become concerned. If the tenderness +/or redness increases or foul drainage and a red streak occurs, please contact your PCP immediately When shoud you call for help? Call 911 anytime you think you may need emergency care. For example If you pass out ( loss of consciousness) If you pass maroon or bloody stools If you have severe belly pain Call your doctor now or seek immediate medical care If your stools are black and tarlike If your stools have streaks of blood, but you did not have a biopsy or any polyps removed If you have belly pain, or your belly is swollen and firm If you vomit If you have a fever If you are very dizzy Watch closely for changes in your health, and be sure to contact your doctor if you have any problems Your doctor will let you know when you will need your next colonoscopy. The results of your test andyour risk for colorectal cancer will help your doctor decide how often you need to be checked. Sunday-Sunday Same Day Endo [phone] 7a-8p Otherwise contact [phone] and ask to speak to the teen counselor instructional support technician Follow up care is a villagran part of your treatment and safety. Be sure to make and go to all appointments, and call your doctor if you are having problems. Discharge instructions reviewed with patient who expresses understanding documented in this encounter Medications at Time of Discharge Medication Sig Dispensed Refills Start Date End Date gabapentin (NEURONTIN) Taper/Titrate, 0 0 10/18/2016 100 [...] (6) Syrg documented as of this encounter H&P Notes Joaquin Freeman MD - 12/21/2014 3:30 PM EDT Gastroenterology and Hepatology Pre-Procedure History and Physical Exam Procedure: Colonoscopy: Indication: abdominla pain previousl failed colo There is no problem list on file for this patient. EXAM: HEENT: Airway examined, oropharynx clear Mallampati Score: II (soft palate, uvula, fauces visible) LUNGS: Clear to auscultation HEART: Regular rate and rhythm, normal S1, S2 ABDOMEN: Normal bowel sounds, soft, non tender, non distended, A/P Proceed with the planned endoscopic procedure. ASA 2 - Patient with mild systemic disease with no functional limitations Sedation Plan: moderate (conscious sedation) Risks and benefits of the procedure explained to the patient. Consent signed. documented in this encounter Plan of Treatment Upcoming Encounters Date Type Specialty Care Team Description 11/28/2021 Hospital Encounter Radiology Harlan Parmar MD [facility] HEMATOLOGY/ONCOLOGY DEPT. [place], [place] [address] (Wo rk) 11/28/2021 Appointment Radiology Harlan Parmar M D [facility] DR HEMATOLOGY/ONCOLOGY DEPT. [place], [place] [address] (Wo rk) 12/01/2021 Office Visit Hematology and Oncology Harlan Parmar MD [facility] DR HEMATOLOGY/ONCOLOGY DEPT. [place], [place] [address] (Wo rk) documented as of this encounter Procedures Procedure Name Priority Date/Time Associated Comments Diagnosis SURGICAL PATHOLOGY Routine 12/21/2014 4:56 PM Res ults for this REPORT EDT procedure are i n the results section. SPECIMEN TO PATHOLOGY Routine 12/21/2014 4:56 PM Results for this EDT procedure are i n the results section. COLONOSCOPY FLEXIBLE, 12/21/2014 4:22 PM abd pain many WITH BX (WRVU 3.66) EDT failed colos needs pediscope miralax COLONOSCOPY Routine 12/21/2014 4:11 PM Results f or this EDT procedure are i n the results section. documented in this encounter Results Surgical Pathology Report (12/21/2014 4:56 PM EDT) [facility] Method Time Signature Surgical The signing pathologist has (i) examined the relevant preparation(s) for the [facility] Path[facility] specimen(s) and (ii) rendered or confirmed the diagnosis(e s). [facility] Report Accession Number: [id number] . ?Surgic al Pathology DIAGNOSIS A - Colon, random biopsies: ? Colonic mucosa within normal limits. CR-0, CR-PX 12/22/14 [facility] 12/22/14 Verified by: ? Gutierrez LUNA, Hermelindo A ?Pathologist ?(Electronic Signature ) The attending pathologist whose signature appears on this re port has reviewed all diagnostic slides and has edited the gross and/ or microscopic portion of the report in erna dering the final pathologic diagnosis. CLINICAL INFORMATION Specimen Submitted: A - Random bx of colon Clinical History: Patient diarrhea intermittently, rule out microscopic inflam mation Clinical Diagnosis: Same SPECIMEN PROCESSING A - Labeled/Fixative: Random biopsy of colon, formalin. Quantity/Size: Multiple, 0.2-0.3 cm. Tissue Description: Soft, red-corcoran tissue. Sections/Processing: (T2) ??ejr Specimen (Source) Anatomical Collection Method Collection Time Re ceived Time Location / / Volume Laterality 12/21/2014 4:56 PM EDT Joaquin Freeman MD PATHOLOGY/CYTOLOGY ORDERABLE S Performing Organization Address City/State/[place] [address] CERNER MILLENNIUM Specimen to Pathology (surgical or derm) (12/21/2014 4:56 PM EDT) Specimen Anatomical Collection Method Collection Time Receive d Time (Source) Location / / Volume Laterality AP Specimen 12/21/2014 4:56 PM 5 4:56 EDT PM EDT Narrative CERNER MILLENNIUM - 12/21/2014 4:56 PM E DT Specimen requisition ordered. ??Separate Pathology report to follow Joaquin Freeman MD PATHOLOGY/CYTOLOGY ORDERABLE S Performing Organization Address City/[facility]/ZIP [facility] [place] [address] CERNER MILLENNIUM COLONOSCOPY (12/21/2014 4:11 PM EDT) [facility] gist Method Time Signature COLONOSCOPY [facility] Endoscopy Patient Name: Divya Friend ? Procedure Date: 12/21/2014 4:11 PM ? Date of : 1950 ? Age: 64 ? Order #: [id number] ? Procedure: ? Colonoscopy Indications: ? Screening for colorectal malignant ? neoplasm, abdominla pain, ? intermittant diarrhea, previo us ? failed colonoscopies Providers: ? Joaquin Freeman MD, Amber Leavitt ? Minnie, MARLENE, Jeremi espinoza, ? Prospecting Driller Helper Referring MD: ?Eric Chavez MD Medicines: ? Propofol per Anesthesia Complications: ? No immediate complications. Procedure: ? The procedure, indications, benefi ts, ? risks and alternatives were e xplained ? to the patient. Specifically ? discussed were potential ? complications including, but not ? limited to, bleeding, perfora tion, ? infection, missing a cancer, and ? adverse medication reactions. The ? patient was placed in the lef t ? lateral decubitus position, a nd a ? digital rectal exam was perfo rmed. ? The Colonoscope was inserted in the ? anus and under direct visuali zation, ? advanced to the terminal ileu m. ? Careful inspection was made a s the ? colonoscope was withdrawn. Th e ? colonoscopy was performed ramone seth ? difficulty. The patient justin ated the ? procedure well. The quality o f the ? bowel preparation was good. S cope ? withdrawal time was 11 minute s. ? Findings: ? The colon mucosa (entire examined portion) appeared ? normal. Biopsies were taken with a cold forceps for ? histology. ? The terminal ileum appeared normal. ? Internal hemorrhoids were found during retroflexion. ? The hemorrhoids were small. ? A few small-mouthed diverticula were found in the ? sigmoid colon. ? Impression: ?- The entire examined colon is ? normal. Biopsied. ? - The examined portion of the ileum ? was normal. ? - Internal hemorrhoids. ? - Diverticulosis in the sigmo id colon. Recommendation: ?- Await pathology results. ? Joaquin Freeman MD 12/21/2014 5:05 PM This report has been signed electronically. Number of Addenda: 0 Note Initiated On: 12/21/2014 4:11 PM Specimen (Source) Anatomical Collection Method Collection Time Re ceived Time Location / / Volume Laterality 12/21/2014 4:11 PM EDT Eric Chavez MD GENERAL SURGICAL ORDERABLES Performing Organization Address City/State/ZIP Code Phon e Number [place] documented in this encounter Visit Diagnoses Not on filedocumented in this encounter Active and Recently Administered Medications Care Teams Buttonhole Maker Relationship Specialty Start Date End Date Eric Chavez MD PCP - General 02/22/10 08/13/16 [facility] [place] [address] documented as of this encounter
--- OUTSIDE RECORDS SUMMARY | 2021-11-25 00:31 | XMS_ITS | Encounter Summary ---
:1950 Author Organization [facility] [place] [address] Care Team Providers Name Role Phone Eric Chavez MD Primary Care Provider Encounter Details Date Type Department Care Team Description 12/21/2014 Anesthesia Event G[facility] at [facility] Heavenly Sweet, [facility] Chasity [place] [address] [facility] [phone] DR ANESTHESIOLOGY [place], [place] [address] Anesthesia Record Procedure Summary Procedure Name Responsible Anesthesia Start Anesthesia Stop Anesthesiologist Time Time COLONOSCOPY FLEXIBLE, Heavenly Sweet MD 12/21/14 1623 12/21 1701 WITH BX (WRVU 3.66) (N/A Trunk) Events Date Time Event Comment 12/21/2014 1555 1623 AN Verify 1623 Start 1623 An Start Data 1630 Anesthesia Ready 1656 an stop data 1701 Stop Name Total Midazolam 2 mg Propofol 150 mg Propofol INF 319.03 mg Agents No agents on file. Blood No blood administrations on file. Lines, Drains, and Airways Type Details Placement Removal PIV 12/21/14; 1523; basilic vein 12/21/14 1523 by Yulisa bojorquez, 12/21/14 1821 by right Jenna (medial side of arm); MARLENE Trent RN moda-usj-jfoidx catheter system; 22 gauge, 1 in length; intradermal injection, tolerated well; 0; 12/21/14; 1821 documented in this encounter Social History Tobacco Use Types Packs/Day Years Used Date Never Assessed Sex Assigned at Date Recorded Female 07/30/2020 4:21 AM EDT documented as of this encounter OR Notes Anesthesia Postprocedure Evaluation - Heavenly Sweet MD - 12/21/2014 5:41 PM EDT Patient: Divya Lucas Procedure(s) Performed: Procedure(s): COLONOSCOPY FLEXIBLE, WITH BX Actual Anesthetic: MAC Patient location: PACU Post-op pain: Adequate analgesia Post-op nausea: no nausea or vomiting Last Vitals: Filed Vitals: 12/21/14 1705 BP: 98/50 Pulse: 71 Temp: Resp: 14 Post-op cardiovascular and respiratory status: is stable Level of consciousness: awake, alert and oriented Complications: no apparent complications and tolerated the procedure well Fluid Status: normal Anesthesia Preprocedure Evaluation - Heavenly Sweet MD - 12/20/2014 8:50 PM EDT Pre-Anesthesia Evaluation for: Divya Lucas a 64 y.o. female. Procedure(s): COLONOSCOPY, DIAGNOSTIC There are no active problems to display for this patient. No past medical history on file. No past surgical history on file. History Substance Use Topics ??? Smoking status: Not on file ??? Smokeless tobacco: Not on file ??? Alcohol Use: Not on file History Drug Use Not on file Allergies not on file Medications: MAR and/or home medications have been reviewed. Physical Exam: There were no vitals filed for this visit. There is no height or weight on file to calculate BMI. Airway Assessment: Mallampati: II TM distance: >3 FB Neck ROM: full Cardiovascular Assessment: Rhythm: regular Rate: normal cardiovascular exam normal Pulmonary Assessment: breath sounds clear to auscultation pulmonary exam normal Dental Assessment: - normal exam Misc Assessment: Patient is wearing No contact(s). IV access: Peripheral line Anesthesia Plan: ASA 3 MAC, with a(n) intravenous induction This is a 64 y.o. female here for COLONOSCOPY for abd pain. Limited documented information regarding patient's medical history; however notable for multiple sclerosis (with associated gait and vision impairment), palpitations (reportedly echo from 2006 showed an EF of 65%, no wall motion abnormality and no significant valve disease, only trivial MR/TR). She also has marked anxiety and reports only leaving her house twice last winter secondary to severe socialanxiety. Type and Screen: No results found for: ABORH Allergies: Allergies not on file Anesthetic History: No previous issues. Anesthetic Plan: MAC Standard ASA monitoring Adequate IV access Region - Other Informed Consent: Anesthetic plan and risks discussed with patient. Plan discussed with attending and resident. [place]. Assessment: documented in this encounter Plan of Treatment Upcoming Encounters Date Type Specialty Care Team Description 11/28/2021 Hospital Encounter Radiology Harlan Parmar MD [facility] DR HEMATOLOGY/ONCOLOGY DEPT. [place], [place] [address] (Wo rk) 11/28/2021 Appointment Radiology Harlan Parmar M D [facility] DR HEMATOLOGY/ONCOLOGY DEPT. [place], [place] [address] (Wo rk) 12/01/2021 Office Visit Hematology and Oncology Harlan Parmar MD [facility] DR HEMATOLOGY/ONCOLOGY DEPT. [place], [place] [address] (Wo rk) documented as of this encounter Visit Diagnoses Not on filedocumented in this encounter Administered Medications Inactive Administered Medications - up to 3 most recent administrations Medication Order MAR Action Action Date Dose Rate Site midazolam (PF) (VERSED) 1 mg/mL Given 12/21/2014 4:25 PM EDT 1 m g multi-dose injection PRN, Starting on Sun12/21/14 at 1623, Until Sun12/21/14 at 1707, Sleep, Anesthesia Intra-op, Routine Given 12/21/2014 4:23 PM EDT 1 mg propofol (DIPRIVAN) 10 mg/mL bolus injection Given 4:26 PM EDT 150 mg (Anesthesia) PRN, Starting on Sun12/21/14 at 1626, Until Sun12/21/14 at 1707, Anesthesia Intra-op propofol (DIPRIVAN) Rate/Dose 12/21/2014 4:50 100 mcg/kg/min 31.4 mL /hr infusion Change PM EDT CONTINUOUS PRN, Starting on Sun12/21/14 at 1625, Until Sun12/21/14 at 1707, Anesthesia Intra-op, Routine New Bag 12/21/2014 4:25 PM EDT 200 mcg/kg/min 62.8 mL/hr documented in this encounter Care Teams Restuarant Crew Worker Relationship Specialty Start Date End Date Eric Chavez MD PCP - General 02/22/10 08/13/[address] [place] [address] documented as of this encounter
--- OUTSIDE RECORDS SUMMARY | 2021-11-25 00:31 | XMS_ITS | Encounter Summary ---
:1950 Author Organization [facility] [place] [address] Care Team Providers Name Role Phone Fernanda Evans APRN Primary Care Provider Reason for Visit Diagnostic Test (Routine) - Closed Specialty Diagnoses / Procedures Referred By Contact Refer red To Contact Radiology Diagnoses Abnormal CT scan of lung Fernanda Evans APRN [facility] Rad Nuclear Med Procedures PET CT Standard Plus Extremities & Head PET CT Standard Skull Base to Mid-Thigh [address] [place] [id number] Referral ID Status Reason Start Date Expiration Date Visits V isits Requested Authorized [id number] Closed Specialty 08/14/2016 11/12/2016 1 1 Service Requested Encounter Details Date Type Department Care Team Description 09/26/2016 Hospital Encounter Nuclear Medicine at [facility] Chasity chacon [address] [place] [address] [place], [place] [phone] (Wo rk) Social History Tobacco Use Types [...] MD [facility] HEMATOLOGY/ONCOLOGY DEPT. [place], [place] [address] (Wo rk) 11/28/2021 Appointment Radiology Harlan Parmar M D [facility] HEMATOLOGY/ONCOLOGY DEPT. [place], [place] [address] (Wo rk) 12/01/2021 Office Visit Hematology and Oncology Harlan Parmar MD [facility] HEMATOLOGY/ONCOLOGY DEPT. [place], [place] [address] (Wo rk) documented as of this encounter Procedures Procedure Name Priority Date/Time Associated Comments Diagnosis NM PET CT STANDARD Routine 09/26/2016 10:[address] scan o f Results for this PLUS EXTREMITIES AND AM EDT lung procedu re are in HEAD the results section. documented in this encounter [...] neoplasm. Thank you for referring this patient [facility]. I have personally reviewed [...] TECHNIQUE: Procedure: Following IV injec tion of 81-hgiujg-1-deoxyglucose (FDG) a standard uptake of approximately 60 [...] TECHNIQUE: Procedure: Following IV injec tion of 33-gocnxv-8-deoxyglucose (FDG) a standard uptake of approximately 60 [...] neoplasm. Thank you for referring this patient [facility] PET [facility]. I have personally reviewed the image(s) and the residents interpretation and agree with the findings, Harlan Veloz at 09/26/2016 4:44 PM Fernanda Evans APRN IMG PET ORDERABLES documented in this encounter Visit Diagnoses Not on filedocumented in this encounter Administered Medications Inactive Administered Medications - up to 3 most recent administrations Medication Order MAR Action Action Date Dose Rate Site fludeoxyglucose (F-18) FDG Given 09/26/2016 8:38 AM EDT 7.8 mCi injection 7.8 mCi 7.8 mCi, Intravenous, ONCE PRN, 1 dose, Starting on Sun09/26/16 at 0838, Until Sun09/26/16 at 0838, Per Protocol, Routine documented in this encounter Care Teams Fur Joiner Relationship Specialty Start Date End Date Fernanda Evans APRN PCP - General Family Medicine 08/14/16 08/26/[address] [place] [address] documented as of this encounter
--- OUTSIDE RECORDS SUMMARY | 2021-11-25 00:31 | XMS_ITS | Encounter Summary ---
:1950 Author Organization [facility] [address] Care Team Providers Name Role Phone Eric Chavez MD Primary Care Provider Reason for Visit Reason Onset Date Comments Other 05/22/2016 Encounter Details Date Type Department Care Team Description 05/22/2016 Telephone Neurology at [facility] [place] Enmanuel Rock MD Other [facility] [place] [address] NEUROLOGY DEPT. [phone] [place], [place] [address] (Wo rk) Social History Tobacco Use Types Packs/Day Years Used Date Never Assessed Sex Assigned at Date Recorded Female 07/30/2020 4:21 AM EDT documented as of this encounter Miscellaneous Notes Telephone Encounter - Ailyn Manley - 05/22/2016 8:41 AM EST Patient has cancelled and no-showed multiple appointments with Dr. Rock. DO NOT RESCHEDULE WITH PRANAV. Okay to book with Resident Clinic or General but do not reschedule with Pranav. documented in this encounter Plan of Treatment Upcoming Encounters Date Type Specialty Care Team Description 11/28/2021 Hospital Encounter Radiology Harlan Parmar MD [facility] HEMATOLOGY/ONCOLOGY DEPT. [place], [place] [address] (Wo rk) 11/28/2021 Appointment Radiology Harlan Parmar M D [facility] HEMATOLOGY/ONCOLOGY DEPT. [place], [place] [address] (Wo rk) 12/01/2021 Office Visit Hematology and Oncology Harlan Parmar MD [facility] DR HEMATOLOGY/ONCOLOGY DEPT. [place], [place] [address] (Wo rk) documented as of this encounter Visit Diagnoses Not on filedocumented in this encounter Care Teams Patch Worker Relationship Specialty Start Date End Date Eric Chavez MD PCP - General 02/22/10 08/13/[address] [place] [address] [place] [address] documented as of this encounter
--- OUTSIDE RECORDS SUMMARY | 2021-11-25 00:31 | XMS_ITS | Encounter Summary ---
:1950 [place] [address] Care Team Providers Name Role Phone Nuha Evansn Itz ROBLES Primary Care Provider Encounter Details Date Type Department Care Team Description 10/19/2016 Surgery Main Operating Room Tunde Freeman W ENDOBRONCHIAL Peg Amado MD ULTRASOUND (EBUS) GUIDED [facility] SAMPLING, 1/2 NODES ([facility] DR 4.71) [facility] [place] [address] [place] [address] [phone] (Wo rk) Social History Tobacco Use Types Packs/Day Years Used Date Current Every Day Smoker Cigarettes 2 52 Smokeless Tobacco: Never Used Comments: 3 cigarettes a day for last 25 years Sex Assigned at Date Recorded Female 07/30/2020 4:21 AM EDT documented as of this encounter Last Filed Vital Signs Vital Sign Reading Time Taken Comments Blood Pressure 122/62 10/19/2016 11:30 AM EDT Pulse 63 10/19/2016 9:09 AM EDT Temperature 35.8 ??C (96.4 ??F) 10/19/2016 11:22 AM EDT Respiratory Rate 18 10/19/2016 9:09 AM EDT Oxygen Saturation 99% 10/19/2016 11:30 AM EDT Inhaled Oxygen Concentration - - [...] Sunday- Sunday 8:00 a.m.-5:00 p.m., please call [phone] to speak to a nurse in the Thoracic Clinic. If you get an answering machine or it is after hours or on weekends or holidays please call [phone] and ask to speak to the Thoracic Physician station worker. Diet: You should follow a regular diet as tolerated. Start slowly with liquids then work your way back up to normal foods. Smoking: If you are a smoker, please avoid smoking. If you are a smoker who needs help quitting, please call the thoracic surgery clinic at [phone]. Pain: You may have a sore throat [...] nurse in the Thoracic Clinic or the station worker Attending Physician after hours. Follow up appointments: The thoracic surgery clinic will schedule your follow up in about 2 weeks. Please call the thoracic clinic at [phone] to confirm/reschedule your appointment. You will also likely get an appointment confirmation in the mail. If you have any questions or concerns during normal business hours, Sunday- Sunday 8:00 a.m.-5:00 p.m., please call [phone] to speak to a nurse in the Thoracic Surgery Clinic. If you get an answering machine or it is after hours or on weekends or holidays please call [phone] and ask to speakto the Thoracic Surgeon station worker. documented in this encounter Medications at Time [...] needs to clarify results with radiologist. 1300: at bedside, ok for discharge at this time. Void X2 without dysuria. Tolerating PO. documented in this encounter H&P Notes Elivn Bennett PA - 10/19/2016 9:00 AM EDT [...] BX performed by Joaquin Freeman MD at [facility] ENDOSCOPY MEDS: No current facility-administered medications [...] LASHAWN Hassan 10/19/2016 Thoracic Surgery Service Pager [phone] documented in this encounter Miscellaneous Notes Brief Op Note - Elvin Bennett PA - 10/19/2016 11:40 AM EDT Brief Operative Note Patient Name: Divya Lucas : [id number] MR#: [id number] Case Date: 10/19/2016 Surgeon: Surgeon(s) and Role: * Tunde Freeman MD - Primary * Elvin Bennett PA - Physician Animator Preoperative diagnosis: lung masses Postoperative diagnosis: lung [...] Freeman MD - 10/19/2016 11:35 AM EDT [facility] Operative Note Patient Name: Divya Lucas : [id number] MR#: [id number] Case Date: 10/19/2016 Surgeon: Surgeon(s) and Role: * Tunde Freeman MD - Primary * Elvin Bennett PA - Physician Animator Preoperative diagnosis: lung masses Postoperative diagnosis: lung [...] [facility] DR HEMATOLOGY/ONCOLOGY DEPT. [place], [place] [address] (Wo rk) 11/28/2021 Appointment Radiology Harlan Parmar M D [facility] DR HEMATOLOGY/ONCOLOGY DEPT. [place], [place] [address] (Wo rk) 12/01/2021 Office Visit Hematology and Oncology Harlan Parmar MD [facility] DR HEMATOLOGY/ONCOLOGY DEPT. [place], [place] [address] (Wo rk) documented as [...] procedure are i n the results section. NON-INCOME TAX AUDITOR FINAL REPORT Routine 10/19/2016 11:29 Res ults for this AM EDT procedure are i n the results section. NON-INCOME TAX AUDITOR FINAL REPORT Routine 10/19/2016 11:27 Res ults for this AM EDT procedure are i n the results section. NON-INCOME TAX AUDITOR FINAL REPORT Routine 10/19/2016 11:21 Res ults for this AM EDT procedure are i n the results section. NON-INCOME TAX AUDITOR FINAL REPORT Routine 10/19/2016 11:21 Res ults [...] Component Value Ref Test Analysis Performed At [facility] Range Method Time Signature Molecular [id number] ?Location: [facility]; [facility]; [facility] The signing pathologist has (i) examined the [...] tissue sample. Reviewed by: Lizet Rothman, PhD, [facility]-Animator Direc tor ? 12/07/16 15:36 Reviewed by: Kevin julian, PhD, [facility], Director-[facility] ([facility],12/08/16 08:41) Electronically signed by: ??Johnny Guallpa, Kevin Johnson Verified: ??12/08/2016 ?Director, Molecular Pathology ?Molecu lar Genetics RESULTS Please refer to Cytopathology Report [id number] for final pathology diagnosis. INDICATION FOR STUDY: [...] . RESULTS Reviewed by: Lizet Rothman, PhD, CGAT-Animator Direc tor ? 11/03/16 16:21 Electronically signed by: ??Tati Naidu MD Verified: ??11/05/2016 ?Pathologist Specimen (Source) Anatomical Collection Method Collection Time Re ceived Time Location / / Volume Laterality 10/19/2016 2:26 PM EDT Tunde Freeman MD PATHOLOGY/CYTOLOGY ORDERABLE S Performing Organization Address City/State/[place] [address] Molecular Genetics Report (10/19/2016 2:26 PM EDT) Component Value Ref Test Analysis Performed At [facility] Range Method Time Signature Molecular [id number] ?Location: [place]; [place]; [facility] The signing pathologist has (i) examined the relevant preparation(s) for the [facility] specimen(s) and (ii) rendered or confirmed the diagnosis(es) . HOSPITAL LABORATORY . ?Molecu lar Genetics RESULTS Please refer to Cytopathology Report [id number] for final pathology diagnosis. INDICATION FOR STUDY: [...] / 11-03-2016 Reviewed by: Lizet Rothman, PhD, CGAT-Animator Direc tor ? 11/03/16 16:21 Electronically signed by: ??Evangelista LUNA, Tati Johnson Verified: ??11/05/2016 ?Pathologist Specimen (Source) Anatomical Collection Method Collection Time Re ceived Time Location / / Volume Laterality 10/19/2016 2:26 PM EDT Tunde Freeman MD PATHOLOGY/CYTOLOGY ORDERABLE S Performing Organization Address City/State/ZIP Code Phon e Number [place] [id number] XR Chest PA or [...] and agree with the findings, Jo Ann arauz t 10/19/2016 11:58 AM Tunde Freeman MD IMG DX ORDERABLES Non-Latex Caster Final Report (10/19/2016 11:29 AM EDT) Component Value Ref Test Analysis Performed At [facility] Range Method Time Signature Non-Latex Caster Final [id number] ?Location: [facility]; [facility]; [facility] The signing pathologist has (i) examined the relevant preparation(s) for the [facility]IAL specimen(s) and (ii) rendered or confirmed the diagnosis(es) . HOSPITAL LABORATORY . ? No n-Latex Caster Final DIAGNOSIS See Discussion Electronically signed by: [...] Organization Address City/State/ZIP Code Phon e Number [place] [phone] Non-Latex Caster Final Report (10/19/2016 11:27 AM EDT) Component Value Ref Test Analysis Performed At [facility] gist Range Method Time Signature Non-Latex Caster [id number] ?Location: [facility]; [facility]; A [facility] Final Report [place] The signing pathologist has (i) examined the relevant preparation(s) for the [facility] specimen(s) and (ii) rendered or confirmed the diagnosis(es) . HOSPITAL LABORATORY . ? No n-Latex Caster Final DIAGNOSIS Positive for Malignancy Electronically signed [...] Organization Address City/State/[place] [address] Non-Latex Caster Final Report (10/19/2016 11:21 AM EDT) Component Value Ref Test Analysis Performed At [facility] gist Range Method Time Signature Non-Latex Caster Final [id number] ?Location: [place]; [place]40; A [facility] The signing pathologist has (i) examined the relevant preparation(s) for the [facility] specimen(s) and (ii) rendered or confirmed the diagnosis(es) . HOSPITAL LABORATORY . ? Addendum ADDENDUM DISCUSSION SPECIAL TEST - FAILED: Test Requested: ??PD-L1 [facility] Case: ??[id number] Reported by: ?? Sam Webb MD Date [...] Webb MD Verified: ??11/21/2016 ?Pathologist ? No n-Latex Caster Final DIAGNOSIS Positive for Malignancy Electronically signed [...] Organization Address City/State/[place] [address] Non-Latex Caster Final Report (10/19/2016 11:21 AM EDT) Component Value Ref Test Analysis Performed At [facility] gist Range Method Time Signature Non-Latex Caster Final [id number] ?Location: [facility]; [facility]; A [facility] The signing pathologist has (i) examined the relevant preparation(s) for the [facility] specimen(s) and (ii) rendered or confirmed the diagnosis(es) . HOSPITAL LABORATORY . ? No n-Latex Caster Final DIAGNOSIS Positive for Malignancy Electronically signed [...] MD PATHOLOGY/CYTOLOGY ORDERABLE S Performing Organization Address City/[facility] [place] [address] Cytopathology Non-Gynecological (10/19/2016 10:52 AM EDT) Specimen Anatomical Collection Method Collection Time Receive d Time (Source) Location / / Volume Laterality AP Specimen 10/19/2016 10:52 10/19/2016 AM EDT 10:52 AM EDT Narrative [facility] OR - 10/19/2016 10:52 AM EDT Specimen requisition ordered. ??Separate Pathology report to follow Tunde Freeman MD PATHOLOGY/CYTOLOGY ORDERABLE S Performing Organization Address City/[facility] [place] [address] Cytopathology Non-Gynecological (10/19/2016 10:32 AM EDT) Specimen Anatomical Collection Method Collection Time Receive d Time (Source) Location / / Volume Laterality AP Specimen 10/19/2016 10:32 10/19/2016 AM EDT 10:32 AM EDT Narrative [facility] OR - 10/19/2016 10:32 AM EDT Specimen requisition ordered. ??Separate Pathology report to follow Tunde Freeman MD PATHOLOGY/CYTOLOGY ORDERABLE S Performing Organization Address City/[facility]/[place] [address] Cytopathology Non-Gynecological (10/19/2016 10:10 AM EDT) Specimen Anatomical Collection Method Collection Time Receive d Time (Source) Location / / Volume Laterality AP Specimen 10/19/2016 10:10 10/19/2016 AM EDT 10:10 AM EDT Narrative [facility] LABORAT ORY - 10/19/2016 10:10 AM EDT Specimen requisition ordered. ??Separate Pathology report to follow Tunde Freeman MD PATHOLOGY/CYTOLOGY ORDERABLE S Performing Organization Address City/State/[place] [address] Surgical Pathology Report (10/19/2016 10:07 AM EDT) Component Value Ref Test Analysis Performed At [facility] gist Range Method Time Signature Surgical [id number] ?Location: [facility]; [facility]; A [facility] Report The signing pathologist has (i) examined the relevant preparation(s) for the [facility] specimen(s) and (ii) rendered or [...] MD PATHOLOGY/CYTOLOGY ORDERABLE S Performing Organization Address City/[facility]/ZIP Code Phon e Number [address] Specimen to Pathology (surgical or derm) (10/19/2016 10:07 AM EDT) Specimen Anatomical Collection Method Collection Time Receive d Time (Source) Location / / Volume Laterality AP Specimen 10/19/2016 10:07 10/19/2016 AM EDT 10:07 AM EDT Narrative [facility] LABORAT ORY - 10/19/2016 10:07 AM EDT Specimen requisition ordered. ??Separate Pathology report to follow Tunde Freeman MD PATHOLOGY/CYTOLOGY ORDERABLE S Performing Organization Address City/[facility]/[place] [address] Molecular Genetics Report (10/19/2016 7:43 AM EDT) Component Value Ref Test Analysis Performed At [facility] Range Method Time Signature Molecular [id number] ? Location: [facility]; [facility]; A [facility] The signing pathologist has (i) examined the relevant preparation(s) for the [facility] specimen(s) and (ii) rendered or confirmed the diagnosis(es) . HOSPITAL LABORATORY . ?Molecu lar Genetics RESULTS Please refer to Cytopatholog y Report [id number] for final pathology diagnosis. INDICATION FOR STUDY: ?? Lym ph node, level 7 (EBUS-guided FNA) - Compatible with adenocarcinoma SPECIMEN ANALYZED: ?? A1 Solid Tumor Fusion Panel Analysis: ?? Examination of RNA extracted from formalin-fixed paraffin-embedded tumor tissue for gene fusion analysis. Results: ?? No Gene fusions were identified in the submitted sample. Interpretation: ?? After rev iew of the pathology report and slides, the specimen ( A1) was selected for fusion analysis using a panel of 53 cancer related genes. Therapeutic options related to the presence or absence of mutations should be carefully assessed. ??Av ailability of other therapeutic indications and clinical trials may be possible. Consider presenting at the [facility] Molecular Tumor Board for further interpretation and discussion by contacting ?? [email or web address] . Methods: ?? Solid Tumor Fusi on [...] was performed by a fully tr ained [facility] technologist using a clinically validated [employer] Solid Slick or Panel assay protocol. ??A total of five Professor Of Floriculture Checkpoints (QC Checkpoints ) were established: (1) [...] reference genome build, and analyzed using the EVRGR Analysis ?[employer] Software. ??Variant were reviewed and curated u sing both peer-reviewed literature and publicly available databases. ??Sources are eleno lala below and in the references section of this report. http://www.mycancergenome.org https://ckb.iva.org/gene/grid https://targetedcancercare.DRO Biosystemsral.org/Gu-Onsaj-Lgiku.as px . RESULTS The 53 genes assessed by the Solid Tumor Fusion assay include: ? AKT3, ALK, DJBIBN48, MURIEL, BRAF, BRD3, BRD4, EGFR , ERG, [...] and Advanced Technology ? (CGAT) Laboratory at [facility]. It has not been cleared or approved by the FDA. The laboratory is regulated under CLIA as qualified to perform high-complexity testing. This test is used for clinical purpos es. It should not be regarded as investigational or for research. Assay Limitations : (1) Muta tions outside the target region and below the limit of detection will not be detected. References: ?1. ??Nikolay Ly, Bob Ulrich. The impact of translocations and gene ? fusions on cancer causation. Nature Reviews Cancer 2007;7:233-245. ?2. ??Rbobie Menchaca,Bhumi Espinoza, Nikolay Ly. The emerging complexity of ? gene fusions in cancer. Nature Reviews Cancer 2015 ;15:371-381. Reviewed by: Lizet Rothman, PhD, CGAT-Animator Direc tor ?01/12/17 15:10 Reviewed by Kevin jones, PhD, [facility], Director-[facility] ([facility], 01/15/17 07:38) Electronically signed by: ??Johnny Guallpa, Kevin Johnson Verified: ??01/15/2017 ?Director, Molecular Pathology Performed at: ??[facility], [address] [place] [address], [address] ?Molecu lar Genetics RESULTS Please [...] possible. These results may indicate clinical trial eligib ility; consider presenting at the [facility] Molecular Tumor Board for further interpreta tion and discussion by contacting ?. For additional information on clinically actionable variants, please visit the following websites: http://www.mycancergenome.org/content/disease/lung-cancer http://www.nccn.org/professionals/physician_gls/f_guidelines .asp Methods: ??Genomic DNA was e xtracted from formalin-fixed paraffin-embedded tumor tissue. DNA sequencing was performed using the 50-gene Cancer Hotspot Panel (Callvine) for each gene repo rted. ??Sequences were [...] ruled out. The genes assessed by the [facility] Hotspot Panel v2 include: ABL1, AKT1, ALK, [...] and Advanced Technology ? (CGAT) Laboratory at [facility]. It has not been cleared or approved by the FDA. The laboratory is regulated under CLIA as qualified to perform high-complexity testing. This test is used for clinical purpos es. It should not be regarded as investigational or for research. References : ??Ewa OY et davonte chavira. J Mol Diagn. 2013 May 15(2):234-247; Satnam C et al. J Mol Diagn 2013 May 15(2):171-176; Martin RR et al. J Mol Diagn 2013 Dec 15(5):607-622; Johnny GJ, et al. Clin Chem Lab Med Mar 03;13:1-8. Reviewed by: Lizet Rothman, PhD, CGAT-Animator [facility] . RESULTS ?11/18/16 15:13 Electronically signed by: ??Gutierrez LUNA, Hermelindo Arauz Verified: ??11/20/2016 ?Pathologist Specimen (Source) Anatomical Collection Method Collection Time Re ceived Time Location / / Volume Laterality 10/19/2016 7:43 AM EDT Tunde Freeman MD PATHOLOGY/CYTOLOGY ORDERABLE S Performing Organization Address City/State/[place] [address] documented in this encounter Visit Diagnoses Diagnosis Lung nodule, multiple Other nonspecific abnormal finding of jay ng field Lung nodule, multiple Other nonspecific abnormal finding of jay ng field documented in this encounter Administered [...] EVERY 6 HOURS PRN, Starting on Edna 7/2 0 at 1124, Until Edna 7 at 1507, Pain, Maximum dose of a [...] 5,000 Units 1000 (Due) 5,000 Units, Subcutaneous, COPRA SAMPLER TO O. R., 1 dose, Edna 10/19/16 at 1000, Routine Continuous Medication Order [...] 10/19/16 at 1308, Pain, for 1-4 pain score, for 1-4 pain score Hold for respiratory rate less than 10 per minute. Maximum dos e: 250 mcg over one hour., PACU Recovery, Routine fentaNYL 50mcg/mL injection(Linked Group 1) 50 mcg, Intravenous, EVERY 5 MIN PRN, St arting Edna 17 at 1120, Until Edna 17 at 1308, Pain, for 5-10 pain score, for 5-10 pain score Hold for respiratory rate less than 10 per minute. Maximum d ose: 250 mcg over one hour., PACU Recovery, Routine HYDROmorphone (DILAUDID) syringe 0.2-0.4 mg 0.2-0.4 mg, Intravenous, EVERY 5 MIN PRN , Starting Edna 17 at 1120, Until Edna 17 at 1308, Pain, For moderate pain (4-6) [...] Subcutaneous, ONCE PRN, 1 dose, Starting Edna 7 at 0914, Until Edna 717 at 1308, for discomfort with PIV insertion, Day of Surgery (Day of Procedure), Routine naloxone (NARCAN) injection 0.04 mg 0.04 mg, Intravenous, EVERY 5 MIN PRN, S tarting Edna 717 at 1120, Until Edna 717 at 1308, Opioid Reversal, for respiratory rate less than 6 or unresponsive., May repeat every every 5 minutes to in crease respiratory rate. DO NOT exceed 0 .12 mg total dose. Notify anesthesia immediately if administered., PACU Recovery, Routine ondansetron (ZOFRAN) injection 4 mg 1134 (Given - Provider: Reina Cunha, MARLENE) 4 mg, Intravenous, EVERY 30 MIN PRN, Sta rting Edna 717 at 1120, Until Edna 717 at 1308, Nausea, May repeat 4 mg once in 30 minutes. If multiple antiemetics ordered, use ondansetron first and if ineffective use prochlorperazine second and if ineffective use promethazine, PACU Recovery promethazine (PHENERGAN) injection 6.25 mg 6.25 mg, Intravenous, EVERY 30 MIN PRN, 2 doses, Starting Edna 717 at 1120, Until Edna 717 at 1308, Nausea, VESICANT - Dilute with [...] Intravenous, EVERY 1 MIN PRN, S tarting Edna 10/19/16 at 0914, Until Edna 10/19/16 at 1308, flush, Flush pertains to all indwelling lines. Flush per protocol found in the job aid using the link prov ided on this medication record., Day of Surgery (Day of Procedur e), Routine No Frequency Medication Order 10/17/2016 10/18/2016 10/19/2016 acetaminophen (TYLENOL) 650 mg/20.3 mL oral liquid (COMPLETED) 1200 (Given - Provider: Reina Cunha, RN) 1 dose, Starting Edna 10/19/16 at [...] Routine documented in this encounter Care Teams Filter Tank Tender Relationship Specialty Start Date End Date Fernanda Evans APRN PCP - General Family Medicine 08/14/16 08/26/[address] [place] [address] documented as of this encounter
--- OUTSIDE RECORDS SUMMARY | 2021-11-25 00:31 | XMS_ITS | Encounter Summary ---
:1950 Author Organization [facility] [place] [address] Care Team Providers Name Role Phone Eric Chavez MD Primary Care Provider Encounter Details Date Type Department Care Team Description 12/21/2014 Hospital Encounter Gastroenterology at [facility] [place] Joaquin Freeman MD [facility] [place] [address] [facility] Eric Godinez MD [facility] [place] [address] [place] [address] Social History Tobacco Use Types Packs/Day [...] to be checked. Sunday-Sunday Same Day Endo [phone] [id number]-[id number] Otherwise contact [phone] and ask to speak to the tufting creeler production supervisor off shift Follow up care is a villagran part [...] MD [facility] [address] HEMATOLOGY/ONCOLOGY DEPT. [place], [place] [address] (Wo rk) 11/28/2021 Appointment Radiology Harlan Parmar M D [facility] DR HEMATOLOGY/ONCOLOGY DEPT. [place], [place] [address] (Wo rk) 12/01/2021 Office Visit Hematology and Oncology Harlan Parmar MD [facility] DR HEMATOLOGY/ONCOLOGY DEPT. [place], [place] [address] (Wo rk) documented as of [...] Surgical Pathology Report (12/21/2014 4:56 PM EDT) [facility] Method Time Signature Surgical The signing pathologist has (i) examined the relevant preparation(s) for the [facility] Pathology specimen(s) and (ii) rendered or confirmed the diagnosis(e s). [facility] Report Accession Number: [id number] . ?Surgic al Pathology DIAGNOSIS A - [...] Organization Address City/State/[place] [address] [facility]ANNER [facility] Specimen to Pathology (surgical or derm) (12/21/2014 4:56 PM EDT) Specimen Anatomical Collection Method Collection Time Receive d Time (Source) Location / / Volume Laterality AP Specimen 12/21/2014 4:56 PM 5 4:56 EDT PM EDT Narrative CERNER MILLENNIUM - 12/21/2014 4:56 PM E DT Specimen requisition ordered. ??Separate Pathology report to follow Joaquin Freeman MD PATHOLOGY/CYTOLOGY ORDERABLE S Performing Organization Address City/State/ZIP [facility] [place] [address] CERNER MILLENNIUM COLONOSCOPY (12/21/2014 4:11 PM EDT) [facility] gist Method Time Signature COLONOSCOPY [facility] Endoscopy Patient Name: Divya Friend ? Procedure Date: 12/21/2014 4:11 PM ? Date of : 1950 ? Age: 64 ? Order #: [id number] ? Procedure: ? Colonoscopy Indications: ? Screening for colorectal malignant ? neoplasm, abdominla pain, ? intermittant diarrhea, previo us ? failed colonoscopies Providers: ? Joaquin Freeman MD, Amber Leavitt ? MARLENE Hartman, Jeremi espinoza, ? Floral Designer Salesperson Referring MD: ?Eric Chavez MD Medicines: ? [...] withdrawn. Th e ? colonoscopy was performed wit dorinda ? difficulty. The patient justin ated the [...] MD GENERAL SURGICAL ORDERABLES Performing Organization Address City/State/[facility] Phon e Number [facility] documented in this encounter Visit Diagnoses Not on filedocumented in this encounter Active and Recently Administered Medications Care Teams Hepatology Physician Relationship Specialty Start Date End Date Eric Chavez MD PCP - General 02/22/10 08/13/[address] [place] [address] [place] [address] documented as of this encounter
--- OUTSIDE RECORDS SUMMARY | 2021-11-25 00:34 | XMS_ITS | Encounter Summary ---
:1950 Demographics Home Phone Preferred Language Unknown Marital Status Unknown Anglican Affiliation Unknown Race Unknown Ethnic Group Unknown Author Organization [facility] Address [address] [place] [address] Care Team Providers Name Role Phone Unavailable Primary Care Provider Unavailable Encounter Details Date Type Department Care Team Description 05/10/2021 Lab Requisition [facility] Outr Resulting Lab, Pathology & Laboratory Provider [facility] [address] [place] [address] Social History Tobacco Use Types Packs/Day Years Used Date Never Assessed Sex Assigned at Date Recorded Not on file documented as of this encounter Plan of Treatment Not on filedocumented as of this encounter Procedures Procedure Name Priority Date/Time Associated Diagnosis Comme nts T3 FREE Routine 05/10/2021 11:20 EST Results for this procedure are i n the results section . documented in this encounter Results T3 FREE (05/10/2021 11:20 EST) Pathologist Sig nature T3, Free 3.1 2.8 - 5.3 pg/mL [facility] Specimen Blood - Venous blood (substance) Performing Organization Address City/State/ZIP Code Phon e Number [facility] [address] [place] [address] SERVICES documented in this encounter Visit Diagnoses Not on filedocumented in this encounter
--- OUTSIDE RECORDS SUMMARY | 2021-11-25 00:34 | XMS_ITS | Encounter Summary ---
:1950 Demographics Home Phone Preferred Language Unknown Marital Status Unknown Bahai Affiliation Unknown Race Unknown Ethnic Group Unknown Author Organization [facility] Address [address] [place] [address] Care Team Providers Name Role Phone Unavailable Primary Care Provider Unavailable Encounter Details Date Type Department Care Team Description 05/13/2020 Lab Requisition [facility] Outr Resulting Lab, Pathology & Laboratory Provider [facility] [address] [place] [address] Social History Tobacco Use Types Packs/Day Years Used Date Never Assessed Sex Assigned at Date Recorded Not on file documented as of this encounter Plan of Treatment Not on filedocumented as of this encounter Procedures Procedure Name Priority Date/Time Associated Diagnosis Comme nts T3, TOTAL Routine 05/13/2020 9:31 EST Results for this procedure are i n the results section . documented in this encounter Results T3, TOTAL (05/13/2020 9:31 EST) Pathologist Sig nature T3, Total 151 97 - 169 ng/dL [facility] Specimen Blood - Venous blood (substance) Performing Organization Address City/State/ZIP Code Phon e Number [facility] [address] [place] [address] SERVICES documented in this encounter Visit Diagnoses Not on filedocumented in this encounter
--- OUTSIDE RECORDS SUMMARY | 2021-11-25 00:34 | XMS_ITS | Encounter Summary ---
:1950 Demographics Home Phone Preferred Language Unknown Marital Status Unknown Bahai Affiliation Unknown Race Unknown Ethnic Group Unknown Author Organization [facility] Address [address] [place] [address] Care Team Providers Name Role Phone Unavailable Primary Care Provider Unavailable Encounter Details Date Type Department Care Team Description 08/15/2019 Lab Requisition [facility] Outr Resulting Lab, Pathology & Laboratory Provider [facility] [address] [place], [place] [id number] Social History Tobacco Use Types Packs/Day Years Used Date Never Assessed Sex Assigned at Date Recorded Not on file documented as of this encounter Plan of Treatment Not on filedocumented as of this encounter Procedures Procedure Name Priority Date/Time Associated Comments Diagnosis DO NOT ORDER Today 08/15/2019 11:38 Results for this STANDALONE - BROAD EDT procedure are in COVID TEST the results section. COVID-19 TESTING Routine 08/15/2019 11:38 Results for this EDT procedure are i n the results section. documented in this encounter Results DO NOT ORDER STANDALONE - BROAD COVID TEST (08/15/2019 11:38 EDT) COVID-19 rt-PCR NEGATIVE Negative [facility] Result Comment: LABORATORY 2019-novel Coronavirus (2019 -nCoV) not detected by the qRT-PCR assay. Consider testing for other respiratory viruses or re-collecting for 2019-nCoV testing. Note: Optimum timing for peak viral levels du ring infections caused by 20 -nCoV have not been determined. Collection of multiple specimens from the same patient may be necessary to detect the virus. Limitations Positive results are indicat kat of active infection with SARS-CoV-2 but do not rule out bacterial infection or co-infection with other viruses. The agent detected may not be the definite cause of diseas e. In addition, detection of viral RNA may not indicate the presence of infectious virus or that SARS-CoV-2 is the causative agent for clinical symptoms. Negative results do not prec lude SARS-CoV-2 infection and should not be used as the sole basis for patient management decisions. Negative results must be combined with clinical observations, patient his tory, and epidemiological in formation. False negative results may also occur if amplification inhibitors are present in the specimen or if inadequate numbers of organisms are present in the specimen. Op timum specimen types and mery ing for peak viral levels during infections caused by SARS-CoV-2 have not been fully determined. Collection of multiple specimens (types and time points) from the same patient may be necessary to detect the virus. The test was validated for u with upper respiratory specimens obtained via nasopharyngeal or oropharyngeal swabs in VTM, UTM, M4, M5, M6, saline, and MTM media. The performance of this test has not be en established for other spe cimens. Specimens collected using other FDA recommended Specimen Collection Materials listed in the FDA COVID-19 [employer] communication (June 26, 2019) are pr ocessed with the caveat that they were not all validated for use with this test and the result must be interpreted in this context. Furthermore, a false negative results may occur if a specimen is improperly collected, transported or handled. If the virus mutates in the RT-PCR target region, SARS-CoV-2 may not be detected or may be detected less predictably. Inhibitors or other types of interference may produce a false negative result. An interference study evaluating the effect of common cold medications was not performed. This test is not FDA-cleared but its performance characteristics were established by our CLIA-certified, CAP-accredited, high complexity laboratory in accordance with CLIA regulations, [employer] (CAP) guidel patricia (Jun 19, 2019), and FDA guidance (May 31, 2019). This test is only for use un janessa the Food and Drug Administration's Emergency Use Authorization. Specimen Swab - Entire nasopharynx (body structur e) Performing Organization Address City/State/ZIP Code Phon e Number [facility] [place] [place] COVID-19 TESTING (08/15/2019 11:38 EDT) COVID-19 rt-PCR NEGATIVE Negative [facility] Result Comment: LABORATORY 2019-novel Coronavirus (2019 -nCoV) not detected by the qRT-PCR assay. Consider testing for other respiratory viruses or re-collecting for 2019-nCoV testing. Note: Optimum timing for peak viral levels du ring infections caused by 20 19-nCoV have not been determined. Collection of multiple specimens from the same patient may be necessary to detect the virus. Limitations Positive results are indicat kat of active infection with SARS-CoV-2 but do not rule out bacterial infection or co-infection with other viruses. The agent detected may not be the definite cause of diseas e. In addition, detection of viral RNA may not indicate the presence of infectious virus or that SARS-CoV-2 is the causative agent for clinical symptoms. Negative results do not prec lude SARS-CoV-2 infection and should not be used as the sole basis for patient management decisions. Negative results must be combined with clinical observations, patient his tory, and epidemiological in formation. False negative results may also occur if amplification inhibitors are present in the specimen or if inadequate numbers of organisms are present in the specimen. Op timum specimen types and mery ing for peak viral levels during infections caused by SARS-CoV-2 have not been fully determined. Collection of multiple specimens (types and time points) from the same patient may be necessary to detect the virus. The test was validated for u se with upper respiratory specimens obtained via nasopharyngeal or oropharyngeal swabs in VTM, UTM, M4, M5, M6, saline, and MTM media. The performance of this test has not be en established for other spe cimens. Specimens collected using other FDA recommended Specimen Collection Materials listed in the FDA COVID-19 [employer] communication (June 26, 2019) are pr ocessed with the caveat that they were not all validated for use with this test and the result must be interpreted in this context. Furthermore, a false negative results may occur if a specimen is improperly collected, transported or handled. If the virus mutates in the RT-PCR target region, SARS-CoV-2 may not be detected or may be detected less predictably. Inhibitors or other types of interference may produce a false negative result. An interference study evaluating the effect of common cold medications was not performed. This test is not FDA-cleared but its performance characteristics were established by our CLIA-certified, CAP-accredited, high complexity laboratory in accordance with CLIA regulations, [employer] (CAP) guidel patricia (Jun 19, 2019), and FDA guidance (May 31, 2019). This test is only for use un janessa the Food and Drug Administration's Emergency Use Authorization. Performing Lab [facility] LABORATORY SERVICES Specimen Swab - Entire nasopharynx (body structur e) Performing Organization Address City/State/ZIP Code Phon e Number [facility] [address] [place] [address] SERVICES [facility] [place], [place] documented in this encounter Visit Diagnoses Not on filedocumented in this encounter
--- NOTE | 2021-11-25 07:00 | DI.US_ITS ---
Exam(s) US SOFT TISS ABD WALL/LOW BACK EXAM: US SOFT TISS ABD WALL/LOW BACK CLINICAL HISTORY: evaluate for mass,ruq abd swelling,r19.01. TECHNIQUE: Ultrasound was performed using standard protocol. COMPARISON: None FINDINGS: Dedicated ultrasound examination of the abdominal wall in the right upper quadrant of the abdomen reg ion which is apparently the area of concern. Submitted images reveal no evidence of solid or significant cystic lesions. No fluid collection in t his region. No obvious anterior abdominal hernia. IMPRESSION: No evidence of superficial soft tissue mass nor fluid collection in the area of concern in the right upper quadrant. If clinically indicated further study with CT scan can be performed. DATA REPOSITORY:
== END 2021-11-25 00:47 ==
LOC: DI 00:27
PROVIDERS: PCP Student in an Organized Health Care Education/Training Program; Visit Provider Student in an Organized Health Care Education/Training Program
DX: R19.01 Right upper quadrant abdominal swelling, mass and lump (principal)
CPT/HCPCS: 76705

== ENCOUNTER 2021-12-02 01:52 | Outpatient (CLI) | payer OTHER, MEDICAID, SELFPAY ==
[2021-12-02 09:32] LABS: Abs Immature Grans 0.05 10^3/uL (0.0-0.06); Absolute Basophil Count 0.06 10^3/uL (0.0-0.2); Absolute Eosinophil Count 0.25 10^3/uL (0.0-0.7); Absolute Lymphocyte Count 2.19 10^3/uL (1.2-3.4); Absolute Monocyte Count 1.22 10^3/uL (0.1-0.8); Absolute Neutrophil Count 6.96 10^3/uL (1.2-6.7); Basophils % 0.6; Eosinophils % 2.3; HCT 44.7 % (36.0-46.0); HGB 14.6 g/dL (11.2-15.7); Immature Grans % 0.5; Lymphocytes % 20.4; MCH 30.2 pg (27.0-33.0); MCHC 32.7 % (32.0-36.0); MCV 93 fL (80-95); MPV 8.9 fL (8.0-11.0); Monocytes % 11.4; Neutrophils % 64.8; Platelet Count 262 10^3/uL (130-400); RBC 4.83 10^6/uL (3.93-5.22); RDW 13.5 % (11.7-14.6); RDW-SD 46.1 fL; WBC 10.73 10^3/uL (4.4-10.8)
[2021-12-02 09:40] LABS: Bilirubin Negative (Negative); Blood Negative (Negative); Clarity Sl Cloudy (Clear); Glucose Negative (Negative); Ketones Negative (Negative); Leukocyte Esterase Trace (Negative); Nitrite Negative (Negative); Specific Gravity >= 1.030 (1.005-1.025); Urobilinogen 0.2 EU/dL (Up TO 0.2); pH 6.5 (5-8)
[2021-12-02 09:58] LABS: Epithelial Cells Moderate HPF (Negative); RBC Negative HPF (0-2)
[2021-12-02 09:59] LABS: Bacteria Few HPF (Negative); C & S Indicated? No/Sq. Contamination; Casts Negative LPF (Negative); Crystals Moderate Amorphous HPF (Negative); Mucus Negative (Negative)
[2021-12-02 10:02] LABS: FREE T4 1.12 ng/dL (0.76-1.46); TSH 2.87 uIU/mL (0.36-3.74)
[2021-12-02 10:14] LABS: ALT 70 U/L (14-59); AST 37 U/L (15-37); Albumin 3.2 g/dL (3.4-5.0); Alkaline Phosphatase 165 U/L (46-116); Anion Gap 10.8 mmol/L (3-11); BUN 18 mg/dL (7-18); Bilirubin, Total 0.4 mg/dL (0.2-1.0); CO2 21.2 mmol/L (21.0-32.0); CREATININE 1.6 mg/dL (0.55-1.02); Calcium 8.7 mg/dL (8.5-10.1); Chloride 108 mmol/L (98-107); Glucose 160 mg/dL (74-106); Potassium 4.4 mmol/L (3.5-5.1); Sodium 140 mmol/L (136-145); Total Protein 7.5 g/dL (6.4-8.2)
[2021-12-04 07:03] LABS: Hemoglobin A1C 6.5 % (<5.7)
== END 2021-12-02 01:53 | disposition home or self-care (01) ==
LOC: LBO 01:52
PROVIDERS: PCP Student in an Organized Health Care Education/Training Program; Visit Provider Internal Medicine Hematology & Oncology
DX: R19.01 Right upper quadrant abdominal swelling, mass and lump (principal); R39.9 Unspecified symptoms and signs involving the genitourinary system; R79.89 Other specified abnormal findings of blood chemistry; N17.9 Acute kidney failure, unspecified; E03.2 Hypothyroidism due to medicaments and other exogenous substances; R73.09 Other abnormal glucose
CPT/HCPCS: 36415; 80053; 99213; 81003; 81015; 83036; 84439; 84443; 85025

== ENCOUNTER → 2022-01-19 08:59 | Outpatient (BNVA) | payer OTHER, MEDICAID, SELFPAY | PROVIDERS: PCP Student in an Organized Health Care Education/Training Program; Referring Provider Student in an Organized Health Care Education/Training Program; Visit Provider Urology | DX: R39.15 Urgency of urination (principal); R32 Unspecified urinary incontinence; R79.89 Other specified abnormal findings of blood chemistry | CPT/HCPCS: 99443 ==

== ENCOUNTER 2022-01-24 18:08 | Outpatient (REF) | payer OTHER, MEDICAID, SELFPAY ==
[2022-01-25 09:03] LABS: *AMPHETAMINES SCREEN URINE Negative (Negative); *BARBITURATES SCREEN URINE Negative (Negative); *BENZODIAZEPINES SCREEN URINE Negative (Negative); Cannabinoids THC Positive (Negative); Cocaine Screen,Urine Negative (Negative); METHADONE URINE SCREEN Negative (Negative); OPIATES URINE SCREEN Negative (Negative); Tricyclic Antidepressants Negative (Negative)
== END 2022-01-24 18:09 | disposition home or self-care (01) ==
LOC: LBN 18:08
PROVIDERS: PCP Student in an Organized Health Care Education/Training Program; Visit Provider Student in an Organized Health Care Education/Training Program
DX: Z79.899 Other long term (current) drug therapy (principal)
CPT/HCPCS: 80307

== ENCOUNTER 2022-02-02 10:59 | Day surgery (SDC) | payer OTHER, MEDICAID, SELFPAY ==
[2022-02-02 11:20] VITALS: BP 110/48; PULSE 61; RESP 16; TEMP 36.4; O2SAT 97
[2022-02-02] MEDS: Lactated Ringers 1,000 ML 80 ML IV (11:55)
[2022-02-02] MEDS: Ciprofloxacin 250 MG TAB PO (12:21)
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
--- NOTE | 2022-02-02 14:07 | W.ANESPRE ---
General Info Date of Service Date Performed: 02/02/22 Height: 5 ft 1 in Weight: 67.3 kg Body Mass Index (BMI): 28.0 Surgical Procedure: Operation Date: 02/02/22 12:10 Proposed Procedure Side Surgeon p Cystoscopy/Tranuretheral Injection of Botox Blaise Alvarez MD Meds Allergies and Home Medications Allergies Allergy/AdvReac Type Severity Reaction Status Date / Time cortisone [Cortisone] Allergy Severe Passed out Verified 02/01/22 10:31 venom-honey bee Allergy Severe Anaphylaxsi Verified 02/01/22 10:31 [bee venom (honey bee)] s Cephalosporins Allergy Unknown Verified 02/01/22 10:31 naproxen [From Naprosyn] Allergy Unknown Verified 02/01/22 10:31 Penicillins Allergy Unknown Verified 02/01/22 10:31 Sulfa (Sulfonamide Allergy Unknown Verified 02/01/22 10:31 Antibiotics) erythromycin base Allergy Verified 02/01/22 10:31 lorazepam [From Ativan] AdvReac Severe Agitation Verified 02/01/22 10:31 venlafaxine [From Effexor] AdvReac Intermediate hallucinati Verified 02/01/22 10:31 ons acetaminophen [From Vicodin] AdvReac Unknown Nausea Verified 02/01/22 10:31 hydrocodone bitartrate AdvReac Unknown Nausea Verified 02/01/22 10:31 [From Vicodin] carboplatin AdvReac THROMBOCYTO Verified 02/01/22 10:31 PENIA contrast dye Allergy Severe Hives Uncoded 02/01/22 10:31 Metal Allergy Unknown Uncoded 02/01/22 10:31 Seafood Allergy Unknown Uncoded 02/01/22 10:31 Home Medication Medication Instructions Recorded folic acid 1 mg tablet 1 mg PO DAILY #30 tabs 02/03/17 inhalational spacing device #1 ea 12/01/19 (POCKET CHAMBER spacer) melatonin 10 mg capsule 20 mg PO HS PRN sleep 11/09/20 nystatin 100,000 unit/gram topical 1 applic topical TID #30 grams 02/08/21 ointment artifi.tears(hypromellose)(PF) 1.7 1 drp ophthalmic (eye) 4-8XD PRN 07/05/21 % eye drops with applicator dry eye(s) #12 mL fluticasone 250 mcg-salmeterol 50 1 inh inhalation Q12H #60 ea 07/05/21 mcg/dose blistr powdr for inhalation (Advair Diskus) levothyroxine 50 mcg capsule 50 mcg PO DAILY #90 caps 09/21/21 epinephrine 0.3 mg/0.3 mL 0.3 mg (0.3 mL) IM ONCE #2 ea 12/01/21 injection, auto-injector (EpiPen 2-Devin) hydroxyzine HCl 10 mg tablet 10 mg PO TID PRN anxiety #90 tabs 12/27/21 albuterol sulfate 90 mcg/actuation 1 - 2 puff inhalation Q4-6H PRN ##1 12/29/21 aerosol inhaler (ProAir HFA) bupropion HCl 100 mg tablet,12 hr 100 mg PO QAM #30 tabs 12/29/21 sustained-release (Wellbutrin SR) atenolol 50 mg tablet See Rx Instructions PO BID #225 01/06/22 tab-caps clonazepam 0.5 mg tablet See Rx Instructions PO DAILY 01/17/22 Anxiety, panic #42 tab-caps pregabalin 75 mg capsule 75 mg PO HS #30 caps 01/24/22 Current Visit Medications: Current Medications Generic Name Dose Route Start Last Admin Trade Name Freq PRN Reason Stop Dose Admin Ciprofloxacin HCl 250 mg 02/02/22 06:00 02/02/22 12:21 Ciprofloxacin 250 Mg Tab PO 02/02/22 18:00 250 mg PREOP EVELYN Administration OnabotulinumtoxinA 200 units/ 0 units 02/02/22 06:00 Sodium Chloride 20 ml IJ 02/02/22 18:00 DIRECTED EVELYN Ringer's Solution 1,000 mls @ 80 mls/hr 02/02/22 06:00 02/02/22 11:55 IV 03/02/22 23:59 80 mls/hr INFUSION EVELYN Administration IV Miscellaneous Supplies 1 each 02/02/22 06:00 Iv Access IV 03/02/22 23:59 DIRECTED EVELYN Sodium Chloride 0 ml 02/02/22 06:00 Normal Saline Flush 10 Ml Syr IV 03/02/22 23:59 PRN PRN Sodium Chloride 0 ml 02/02/22 06:00 Normal Saline 10 Ml Vial IJ 03/02/22 23:59 DIRECTED PRN Sterile Water 0 ml 02/02/22 06:00 Water,Injection,Sterile 10 Ml Vial IJ 03/02/22 23:59 DIRECTED PRN PFSH Active Problems Active Problems: Problem Status Onset Code Urinary urgency R39.15 Medication management Z79.899 Lung cancer C34.90 Primary malignant neoplasm of lung metastatic to other site C34.90 Elevated hemoglobin A1c R73.09 Increase in creatinine R79.89 Lower urinary tract symptoms (LUTS) R39.9 Urinary retention R33.9 Multiple sclerosis G35 Leg pain M79.606 Impacted cerumen, right ear H61.21 Multinodular thyroid E04.2 Encounter for medication review and counseling Z71.89 Avoidance coping F43.8 Chronic disease /disorder R69 Anxiety F41.9 Severe episode of recurrent major depressive disorder, with psychotic features F33.3 Weight gain R63.5 Candidal intertrigo B37.2 Disability Chronic pain G89.29 Falls frequently R29.6 Drug-induced hypothyroidism E03.2 Thyroid nodule E04.1 Wheelchair dependent Z99.3 Discharge from genitalia Feels sick R68.89 Anuria R34 COPD (chronic obstructive pulmonary disease) J44.9 History of Clostridioides difficile colitis Z86.19 Stress due to illness of family member Z63.79 Shingles (herpes zoster) polyneuropathy B02.23 Hematuria R31.9 Isolation, social Z60.4 Goals of care, counseling/discussion Z71.89 Agoraphobia with panic attacks F40.01 Chronic prescription benzodiazepine use Z79.899 Peripheral polyneuropathy G62.9 Panic disorder F41.0 Palpitations R00.2 Other injury of flexor muscle, fascia and tendon of right ring finger at wrist and hand level, initial encounter 09/11/16 S66.194A Occipital neuralgia M54.81 Multiple sclerosis 13 G35 Irritable bowel syndrome without diarrhea K58.9 Gastroesophageal reflux disease K21.9 Chronic fatigue R53.82 BRANDON (generalized anxiety disorder) F41.1 Eating disorder 05/19/16 F50.9 History of substance abuse F19.11 Family history of substance abuse Z81.4 Medical History Medical History (Updated 02/02/22 @ 13:49 by Blaise Alvarez MD) Abdominal or pelvic swelling, mass, or lump, right upper quadrant swells up at night , Hx tauma Anxiety and depression Dream anxiety disorder resolved, 2' CBD Eating disorder Galactorrhea not associated with childbirth (09/26/12) MS (multiple sclerosis) Nightmares resolved .. 2' CBD Palliative care patient Met w/ Dr. De Leon, 10/2020 .. considering morphine for pain & SOB Tetanus vaccination not carried out live ingredient contra-indicated administered 07/2021 Tobacco use disorder QUIT 2019. 0-3 cigarettes/day (04/2019) . Hx 1-2 PPD 20 yrs ago. Lately no smoking bc of malaise. Medical History Comments:: Daughter takes awhile to come out of it; pt reports currently being worked up for possible diabetes Surgical History Surgical History Abdominal hysterectomy (~1989) Endometriosis Appendectomy (10/24/07) Oophrectomy, Both (~1989) with MARCO for endometriosis Repair of inguinal hernia (~1994) Tonsillectomy Tobacco Smoking/Tobacco Use Status: Former Tobacco Use Second hand exposure: Yes Counseling given: counseling >3 minutes Alcohol Alcohol Intake: never Substance Use Substance use: Never Substance use type: does not use Vital Signs and Lab Results Vital Signs Most Recent Vital Signs in EMR: Most Recent Vital Signs Temp Pulse Resp BP Pulse Ox 36.4 C L 61 16 110/48 L 97 02/02/22 11:20 02/02/22 11:20 02/02/22 11:20 02/02/22 11:20 02/02/22 11:20 Point of Care Results Point of Care Results: Finger Stick Blood Glucose 111 02/02/22 11:51 Lab Results Blood Type / Crossmatch: No Data to Display Complete Blood Count: No Data to Display Complete Metabolic Panel: No Data to Display Liver Function Panel: No Data to Display Coagulation Panel: No Data to Display Cardiac Panel: No Data to Display Arterial Blood Gas: No Data to Display Venous Blood Gas: No Data to Display Pancreas Panel: No Data to Display Thyroid Panel: No Data to Display Infectious Disease: No Data to Display Blood Cultures: No Data to Display Toxicology Panel: Urine Amphetamines Screen Negative (Negative) 01/24/22 15:20 Urine Benzodiazepines Screen Negative (Negative) 01/24/22 15:20 Urine Barbiturates Screen Negative (Negative) 01/24/22 15:20 Urine Cocaine Screen Negative (Negative) 01/24/22 15:20 Urine Methadone Screen Negative (Negative) 01/24/22 15:20 Urine Opiates Screen Negative (Negative) 01/24/22 15:20 Ur Tricyclic Antidepressants Screen Negative (Negative) 01/24/22 15:20 Ur Tetrahydrocannabinol (THC) Scrn Positive (Negative) A 01/24/22 15:20 Anesthesia Assessment and Plan Anesthesia History Personal History: Delayed Emergence Family History: No Family History of Anesthesia Complications Exercise Tolerance Exercise Tolerance: Metabolic Equivalents>4 Pertinent Negatives Pertinent Negatives: No Symptoms of GERD, No Major Cardiovascular Symptoms or Complaints and No Major Pulmonary Symptoms or Complaints Cardiac & Pulmonary Exam Cardiac Exam: Normal S1/S2 Heart Sounds Pulmonary Exam: Clear Bilateral Breath Sounds Implantable Cardiac Device Does patient have a Pacemaker or an ICD?: No Airway Exam Known Difficult Airway: No Mallampati Class: 2 Mouth Opening: Normal (> 3cm) Thyromental Distance: Greater than 3 cm Neck Range of Motion: Full ROM Neck Circumference: Normal Teeth Condition: Generalized Poor Dentition and Edentulous (Upper) ASA Classification ASA Score: ASA 2 Emergency Case?: No NPO Status NPO Status: NPO Clears >2 hours, Solids >8 hours Anesthesia Plan Resuscitation Status: Full Code Anesthesia Technique: General Anesthesia Airway Planned: Natural Airway Monitors Used: Standard Monitors
[2022-02-02 14:10] VITALS: BMI 28.0
[2022-02-02] MEDS: Lidocaine 2% Jelly 6 ML SYR (14:57)
--- NOTE | 2022-02-02 15:10 | W.PM.DSUDISC ---
Date of service: 02/02/22 Time of Service: 15:10 Discharge Plan Disposition Patient Disposition: HOME Condition: Good Discharge Details Reason For Visit: Cystoscopy with transurethral injection of Botox Attending Provider: Blaise Alvarez Primary Care Provider: Yadira Nunze Home Meds and New Rx's Prescriptions: No Action melatonin 10 mg capsule 20 mg PO HS PRN (Reason: sleep) nystatin 100,000 unit/gram ointment 1 applic topical TID Qty: 30 1RF Rx Instructions: Trial for rash epinephrine [EpiPen 2-Devin] 0.3 mg/0.3 mL auto-injector 0.3 mg IM ONCE Qty: 2 1RF artifi.tears(hypromellose)(PF) 1.7 % drops with applicator 1 drp ophthalmic (eye) 4-8XD PRN (Reason: dry eye(s)) Qty: 12 0RF fluticasone propion-salmeterol [Advair Diskus] 250-50 mcg/dose blister with device 1 inh inhalation Q12H Qty: 60 1RF bupropion HCl [Wellbutrin SR] 100 mg tablet sustained-release 12 hr 100 mg PO QAM Qty: 30 1RF Rx Instructions: Re-start for anxiety, mood, energy albuterol sulfate [ProAir HFA] 90 mcg/actuation HFA aerosol inhaler 1 - 2 puff Inhalation Q4-6H PRN Qty: 1 3RF Rx Instructions: DISPENSE ALBUTEROL INHALER BRAND WITH SPACER COVERED BY INSURANCE (DME) POCKET CHAMBER Spacer See Rx Instructions .ROUTE .MEDSUPPLY Qty: 1 0RF Rx Instructions: As directed levothyroxine 50 mcg capsule 50 mcg PO DAILY Qty: 90 1RF Hold Instructions: making her sick? hydroxyzine HCl 10 mg tablet 10 mg PO TID PRN (Reason: anxiety) Qty: 90 1RF atenolol 50 mg tablet See Rx Instructions PO BID Qty: 225 3RF Dose Instruction: Take 50 mg (1 pill) AM and 75mg (1 1/2 pill) PM PO BID; Rx Instructions: Take 50 mg (1 pill) AM and 75mg (1 1/2 pill) PM PO BID; clonazepam 0.5 mg tablet See Rx Instructions PO DAILY MDD .75MG Qty: 42 0RF Rx Instructions: 1/2 tab AM. 1 tab PM. orally daily; pregabalin 75 mg capsule 75 mg PO HS Qty: 30 0RF folic acid 1 MG tablet 1 mg PO DAILY Qty: 30 0RF Discharge Instructions Additional Instructions: no appt necessary, but ask pt to call and give us a progress report in @ 1 week may resume all preop medications Activity:: Activity as Tolerated Shower/Bathe:: 24 hours Diet:: As Tolerated Discharge Orders Discharge Orders: Discharge Order (Routine); Ordered 02/02/22 Ordered By: Blaise Alvarez DS: Diagnosis Discharge Diagnosis (1) Multiple sclerosis: Status: Chronic (2) Urinary urgency: Status: Acute
[2022-02-02 15:13] VITALS: BP 103/77; PULSE 77; RESP 18; TEMP 36.1; O2SAT 94
--- NOTE | 2022-02-02 15:17 | W.PM.OP ---
Date of service: 02/02/22 Time of Service: 15:17 Operative Note Operative Note DATE OF PROCEDURE: 02/02/22 PRE-OP DIAGNOSIS: Urinary urgency due to overactive bladder PROCEDURE: cystoscopy with transurethral injection of Botox into detrusor muscle SURGEON: Blaise Alvarez ANESTHESIA TYPE: General:No Airway Refer to Anesthesia Record ESTIMATED BLOOD LOSS: 0 PATHOLOGY: none sent COMPLICATIONS: None Patient was transported to: same day Patient's condition: stable Implants: none Indications: This 71-year-old woman who has a history of a neurogenic bladder due to multiple sclerosis. She has been complaining of urinary frequency, urgency and incontinence. When we evaluated her in the office, her residual urine was a low. She is not a candidate for anticholinergic medications because of her bowel issues. She has failed maximal doses of Myrbetriq. She presents now for a trial of Botox into the detrusor Procedure Description: Patient was brought to the operating room on 02/02/2022. She was given a dose of preoperative antibiotics. After successful induction of general anesthesia, she was placed in the dorsal lithotomy position. Her genitalia was prepped. 2% Xylocaine jelly was instilled into the urethra to act as a local anesthetic. A 20 [place] urethrotome sheath was passed through the urethra into the bladder. The bladder was inspected using a 30 degree lens. The bladder showed no papillary or nodular lesions. Using a transurethral injection system, we injected a total of 200 units of Botox into the detrusor muscle. We followed a grid pattern of vertical rows and 5 horizontal injection sites. The Botox was mixed in 20 mL of fluid so each injection site received 1 mL of solution. Once the injection was complete, the scope was removed. The bladder was drained with a 14 [place] catheter. The catheter was then removed.
--- NOTE | 2022-02-02 15:25 | W.ANESPOSTOP ---
Postoperative Evaluation Date, Time and Location Date Performed: 02/02/22 Time Performed: 15:26 Patient Location: Day Surgery Unit Vital Signs Most Recent Imported Vital Signs: Most Recent Vital Signs Temp Pulse Resp BP Pulse Ox 36.1 C L 77 18 103/77 94 02/02/22 15:13 02/02/22 15:13 02/02/22 15:13 02/02/22 15:13 02/02/22 15:13 Pain Score Most Recent Pain Score: Most Recent Pain Score Pain Level 2 02/02/22 15:13 Assessment Mental Status: Awake (Alert & Oriented to Patient Baseline) Airway and Respiratory Function: Patent airway with normal (patient baseline) respiratory exam Cardiovascular Function: Hemodynamically Stable Hydration Status: Adequately Hydrated Nausea & Vomiting: No Nausea or Vomiting Pain: Pain is tolerable per patient Peripheral Nerve Block: Patient did not receive a nerve block
[2022-02-02] MEDS: Phenazopyridine 200 MG TAB PO (15:33)
[2022-02-02 15:37] VITALS: BP 108/56; PULSE 64; RESP 18; TEMP 36.2; O2SAT 98
== END 2022-02-02 16:08 | disposition home or self-care (01) ==
PROVIDERS: PCP Student in an Organized Health Care Education/Training Program; Visit Provider Urology
PROC: (CPT 52287; principal; 2022-02-02 12:00)
DX: N39.41 Urge incontinence (principal); G35 Multiple sclerosis; R33.9 Retention of urine, unspecified
CPT/HCPCS: 52287; J2704

== ENCOUNTER 2022-02-17 09:01 | Outpatient (REF) | payer OTHER, MEDICAID, SELFPAY | END 2022-02-17 09:02 | disposition home or self-care (01) | LOC: LBN 09:01 | PROVIDERS: PCP Student in an Organized Health Care Education/Training Program; Visit Provider Student in an Organized Health Care Education/Training Program | DX: N31.9 Neuromuscular dysfunction of bladder, unspecified (principal); R82.90 Unspecified abnormal findings in urine | CPT/HCPCS: 87086 ==

== ENCOUNTER 2022-02-21 02:05 | Outpatient (CLI) | payer OTHER, MEDICAID, SELFPAY ==
--- NOTE | 2022-02-21 07:45 | DI.US_ITS ---
Exam(s) US NEEDLE LOCAL OTHER WO RAD EXAM: TR/TR 5 lesions,ultrasound guided bx,e04.2,multinodular thyroid COMPARISON: No exams were available for comparison TECHNIQUE: Ultrasound performed using standard protocol. FINDINGS: Sonography was provided for Dr. Sorensen during the performance of a ultrasound-guided FNA of a right thyroid nodule. Please refer to the procedure report for complete details. DATA REPOSITORY:
--- NOTE | 2022-02-21 12:35 | PAPNONF_PTH ---
PATIENT: Divya Lucas LOC: [facility] U#:[id number] AGE/SX: 71/F ROOM: RE02/21/[address]: Elliot Sorensen MD : 1950 BED: DIS: 02/21/2022 SPEC #: [id number] RECD: 02/21/22 13:09 STATUS: RAZIA REMainor #: [id number] PAULINE: 02/21/22 12:[address]: Elliot Sorensen DEPT: [facility], [facility] Cytology RECD BY: Lea Phelps ENTERED: 02/21/22 13:10 SP TYPE: FEMI DEL CID DR: Yadira Nunez DO Tissues: 1 - BODY FLUID CYTO-FINE NEEDLE [facility] Procedures: BODY FLUID CYTO-FINE NEEDLE [facility]IRATE[facility] Comments: [id number] (PATH FNA CONSULT) (REFRIGERATED)
--- NOTE | 2022-02-21 13:03 | W.PROCNOTE ---
Date of service: 02/21/22 Time of Service: 13:03 Procedure Note Date of procedure: 02/21/22 Procedure: Ultrasound-guided FNA, right thyroid nodule, pathology present Surgeon/Proceduralist/Physician: Elliot Sorensen Procedure Diagnosis: TR 5 lesion, right thyroid lobe, size indicative of biopsy Procedure Indications: See above Procedure Description: The patient was positioned in supine position with her head extended. Ultrasound was used to visualize the nodule on the right. Both nodules were visualized and the smaller of the 2 lesions still does not meet criteria for biopsy. The larger solid lesion met criteria. The patient was therefore prepped and draped in appropriate fashion, and 1% lidocaine with 1/100,000 epinephrine was injected into the skin and subcutaneous tissues overlying the nodule. A 25-gauge needle was passed repeatedly into the nodule, and the specimen was checked for cellular adequacy by pathology. Once cellular adequacy was met, the decision was made not to draw Afirma as these cells had a bland appearance. Sterile dressing was applied. There is no bruising or bleeding. Her vital signs remained stable and she was able to ambulate afterwards. She will remove the bandage within a couple of hours and not replace it. She will call with any signs of infection. She will call if she does not hear from me with regard to pathology results within 1 week. She had no further questions. She is comfortable with the plan.
== END 2022-02-21 02:25 ==
LOC: DI 02:05
PROVIDERS: PCP Student in an Organized Health Care Education/Training Program; Visit Provider Otolaryngology
DX: E04.2 Nontoxic multinodular goiter (principal)
CPT/HCPCS: 10005; 76942; 88104

== ENCOUNTER 2022-03-02 17:54 | Outpatient (REF) | payer OTHER, MEDICAID, SELFPAY ==
[2022-03-02 18:06] LABS: Anion Gap 11.3 mmol/L (3-11); BUN 14 mg/dL (7-18); CO2 23.7 mmol/L (21.0-32.0); CREATININE 1.2 mg/dL (0.55-1.02); Calcium 8.8 mg/dL (8.5-10.1); Chloride 105 mmol/L (98-107); Glucose 95 mg/dL (74-106); Potassium 3.9 mmol/L (3.5-5.1); Sodium 140 mmol/L (136-145)
== END 2022-03-02 17:55 | disposition home or self-care (01) ==
LOC: LBN 17:54
PROVIDERS: PCP Student in an Organized Health Care Education/Training Program; Visit Provider Student in an Organized Health Care Education/Training Program
DX: N17.9 Acute kidney failure, unspecified (principal); R79.89 Other specified abnormal findings of blood chemistry
CPT/HCPCS: 80048

== ENCOUNTER 2022-03-22 00:59 | Outpatient (CLI) | payer OTHER, MEDICAID, SELFPAY ==
--- NOTE | 2022-03-22 06:45 | DI.US_ITS ---
Exam(s) US RENAL EXAM: US RENAL CLINICAL HISTORY: flank pain,R10.9 TECHNIQUE: Ultrasound of both kidneys performed using standard protocol. COMPARISON: US US NEEDLE LOCAL OTHER WO RAD from 02/21/2022 FINDINGS: RIGHT KIDNEY: Measures 9.4 cm in length. No cysts evident. Normal cortical thickness and corticomedullary different iation .No solid masses No intrarenal calculi nor hydronephrosis. LEFT KIDNEY: Measures 8.7 cm in length. No cysts evident. Normal cortical thickness and corticomedullary differen tiaion. No solids masses. There is a 4 millimeter echogenic focus towards the upper pole which is pr obably a nonobstructive calculus at this level. URINARY BLADDER: Prevoid volume is 169 cc Postvoid volume is 0 cc No evidence of bladder mass nor diverticuli. Ureterovesical jets: Both identified and appear symmetrical IMPRESSION: 1. There is a small 4 millimeter hyperechoic focus in the upper aspect of the left kidney which may be a nonobstructive calculus. There are no other focal findings in the kidneys. No hydronephrosis. 2. No obvious abnormality in the urinary bladder. DATA REPOSITORY:
== END 2022-03-22 01:19 ==
LOC: DI 00:59
PROVIDERS: PCP Student in an Organized Health Care Education/Training Program; Visit Provider Urology
DX: R10.9 Unspecified abdominal pain (principal); R93.422 Abnormal radiologic findings on diagnostic imaging of left kidney
CPT/HCPCS: 76770

== ENCOUNTER 2022-06-09 10:47 | Outpatient (REF) | payer OTHER, MEDICAID, SELFPAY ==
[2022-06-09 15:37] LABS: Influenza A PCR Negative (Negative); Influenza B PCR Negative (Negative); RSV PCR Negative (Negative)
[2022-06-09 15:39] LABS: Source Nasopharynx
[2022-06-09 15:56] LABS: COVID-19 PCR Positive (Negative)
== END 2022-06-09 10:48 | disposition home or self-care (01) ==
LOC: LBN 10:47
PROVIDERS: PCP Student in an Organized Health Care Education/Training Program; Visit Provider Student in an Organized Health Care Education/Training Program
DX: R06.02 Shortness of breath (principal)
CPT/HCPCS: 87637

== ENCOUNTER 2022-06-09 11:19 | Outpatient (CLI) | payer OTHER, MEDICAID, SELFPAY ==
--- NOTE | 2022-06-09 11:00 | DI.RAD_ITS ---
Exam(s) XR CHEST 2V PA LATERAL EXAM: XR CHEST 2V PA LATERAL CLINICAL HISTORY: SOB, decreased lung base, evaluate for pneumonia (poor br left base) TECHNIQUE: 2D digital imaging was performed of the chest. Two images were obtained. PA and lateral views were obtained. COMPARISON: CR XR CHEST 2V PA LATERAL from 06/16/2020 FINDINGS: MEDIASTINUM: Normal. HEART: Normal. PULMONARY VASCULATURE: Normal. LUNGS: There are persistent nodules in the lungs which appears stable. No new infiltrates are seen. PLEURAL SPACE: There is a new small left pleural effusion. No right pleural effusion. No pneumothor ax. BONE:Within normal limits for the patient's age. OTHER FINDINGS:Normal. IMPRESSION: New small left pleural effusion. DATA REPOSITORY: RADIATION DOSE DELIVERED:
== END 2022-06-09 11:39 ==
LOC: DI 11:20
PROVIDERS: PCP Student in an Organized Health Care Education/Training Program; Visit Provider Student in an Organized Health Care Education/Training Program
DX: J90 Pleural effusion, not elsewhere classified (principal); R06.02 Shortness of breath; R06.89 Other abnormalities of breathing; U09.9 Post COVID-19 condition, unspecified
CPT/HCPCS: 71046

== ENCOUNTER 2022-06-30 12:17 | Outpatient (REF) | payer OTHER, MEDICAID, SELFPAY ==
[2022-06-30 15:46] LABS: Bacteria Few HPF (Negative); C & S Indicated? No/Sq. Contamination; Casts Negative LPF (Negative); Crystals Few Calcium Oxalate HPF (Negative); Epithelial Cells Many HPF (Negative); Mucus Trace (Negative)
== END 2022-06-30 12:18 | disposition home or self-care (01) ==
LOC: LBN 12:17
PROVIDERS: PCP Student in an Organized Health Care Education/Training Program; Visit Provider Student in an Organized Health Care Education/Training Program
DX: N13.9 Obstructive and reflux uropathy, unspecified (principal); R39.11 Hesitancy of micturition
CPT/HCPCS: 81015

== ENCOUNTER 2022-07-10 00:45 | Outpatient (CLI) | payer OTHER, MEDICAID, SELFPAY ==
--- NOTE | 2022-07-10 06:45 | DI.US_ITS ---
Exam(s) US RENAL EXAM: US RENAL CLINICAL HISTORY: eval for renal calc,? obstruction,urinary hesitany,n13.9,r39.11. TECHNIQUE: Reddy scale, color and spectral Doppler were used. COMPARISON: US US RENAL from 03/22/2022 FINDINGS: Renal size in cm: Right: 9.2. Left: 9.0. Echogenicity: Normal. Hydronephrosis: No. Cyst or mass: No. Nephrolithiasis: There is a parenchymal 4 mm echogenic focus again seen in the upper pole of the left kidney. Other findings: None. Bladder:Normal. Ureteral jets: Right: Visualized and unremarkable. Left: Visualized and unremarkable. Prevoid vol:137 cc Postvoid vol:The patient was unable to void on this examination. Renal color flow: Symmetric and within normal limits. IMPRESSION: No evidence of hydronephrosis. DATA REPOSITORY:
== END 2022-07-10 01:05 ==
LOC: DI 00:45
PROVIDERS: PCP Student in an Organized Health Care Education/Training Program; Visit Provider Student in an Organized Health Care Education/Training Program
DX: N13.9 Obstructive and reflux uropathy, unspecified (principal); R39.11 Hesitancy of micturition; R93.422 Abnormal radiologic findings on diagnostic imaging of left kidney
CPT/HCPCS: 76770

== ENCOUNTER 2022-07-10 01:28 | Outpatient (CLI) | payer OTHER, MEDICAID, SELFPAY ==
[2022-07-10 08:34] LABS: Abs Immature Grans 0.06 10^3/uL (0.0-0.06); Absolute Basophil Count 0.08 10^3/uL (0.0-0.2); Absolute Eosinophil Count 0.18 10^3/uL (0.0-0.7); Absolute Lymphocyte Count 2.81 10^3/uL (1.2-3.4); Absolute Monocyte Count 1.52 10^3/uL (0.1-0.8); Basophils % 0.7; Eosinophils % 1.5; HCT 43.4 % (36.0-46.0); HGB 14.3 g/dL (11.2-15.7); Immature Grans % 0.5; MCH 29.3 pg (27.0-33.0); MCHC 32.9 % (32.0-36.0); MCV 89 fL (80-95); MPV 8.7 fL (8.0-11.0); Neutrophils % 60.3; Platelet Count 312 10^3/uL (130-400); RBC 4.88 10^6/uL (3.93-5.22); RDW 13.8 % (11.7-14.6); RDW-SD 45.1 fL
[2022-07-10 08:37] LABS: Absolute Neutrophil Count 7.06 10^3/uL (1.2-6.7)
[2022-07-10 08:50] LABS: Diff Comment Diff Reviewed; RBC Morphology Normal
[2022-07-10 09:29] LABS: ALT 35 U/L (14-59); AST 18 U/L (15-37); Alkaline Phosphatase 145 U/L (46-116); Anion Gap 9.9 mmol/L (3-11); BUN 14 mg/dL (7-18); Bilirubin, Total 0.3 mg/dL (0.2-1.0); CO2 25.1 mmol/L (21.0-32.0); CREATININE 1.4 mg/dL (0.55-1.02); Calcium 8.8 mg/dL (8.5-10.1); Chloride 107 mmol/L (98-107); Estimated GFR 40.73 (mL/min/1.73m2); Glucose 96 mg/dL (74-106); Potassium 3.5 mmol/L (3.5-5.1); Sodium 142 mmol/L (136-145); T4 10.5 ug/dL (4.7-13.3); TSH 2.83 uIU/mL (0.36-3.74)
== END 2022-07-10 01:29 | disposition home or self-care (01) ==
LOC: LBO 01:29
PROVIDERS: PCP Student in an Organized Health Care Education/Training Program; Visit Provider Internal Medicine Hematology & Oncology
DX: E03.2 Hypothyroidism due to medicaments and other exogenous substances (principal); C34.31 Malignant neoplasm of lower lobe, right bronchus or lung
CPT/HCPCS: 36415; 80053; 84436; 84443; 85025

== ENCOUNTER → 2022-07-25 08:21 | Outpatient (BNVA) | payer OTHER, MEDICAID, SELFPAY | PROVIDERS: PCP Student in an Organized Health Care Education/Training Program; Referring Provider Student in an Organized Health Care Education/Training Program; Visit Provider Urology | DX: N31.9 Neuromuscular dysfunction of bladder, unspecified (principal); G35 Multiple sclerosis | CPT/HCPCS: 99213 ==

== ENCOUNTER 2022-08-07 08:53 | Day surgery (SDC) | payer OTHER, MEDICAID, SELFPAY ==
[2022-08-07] VITALS (8 sets, daily range): BP systolic 91–141; BP diastolic 39–77; PULSE 63–71; RESP 15–18; TEMP 36.3–36.5; O2SAT 93–97; BMI 27.8
[2022-08-07] MEDS: Lactated Ringers 1,000 ML 80 ML IV (09:40)
[2022-08-07] MEDS: Ciprofloxacin 250 MG TAB PO (09:45)
--- NOTE | 2022-08-07 09:50 | W.ANESPRE ---
General Info Date of Service Date Performed: 08/07/22 Height: 5 ft 1 in Weight: 66.7 kg Body Mass Index (BMI): 27.8 Surgical Procedure: Operation Date: 08/07/22 10:10 Proposed Procedure Side Surgeon p Cystoscopy/ TU Injection Botox Blaise Alvarez MD Meds Allergies and Home Medications Allergies Allergy/AdvReac Type Severity Reaction Status Date / Time cortisone [Cortisone] Allergy Severe Passed out Verified 08/07/22 09:26 venom-honey bee Allergy Severe Anaphylaxsi Verified 08/07/22 09:26 [bee venom (honey bee)] s Cephalosporins Allergy Unknown Verified 08/07/22 09:26 naproxen [From Naprosyn] Allergy Unknown Verified 08/07/22 09:26 Penicillins Allergy Unknown Verified 08/07/22 09:26 Sulfa (Sulfonamide Allergy Unknown Verified 08/07/22 09:26 Antibiotics) erythromycin base Allergy Verified 08/07/22 09:26 lorazepam [From Ativan] AdvReac Severe Agitation Verified 08/07/22 09:26 venlafaxine [From Effexor] AdvReac Intermediate hallucinati Verified 08/07/22 09:26 ons acetaminophen [From Vicodin] AdvReac Unknown Nausea Verified 08/07/22 09:26 hydrocodone bitartrate AdvReac Unknown Nausea Verified 08/07/22 09:26 [From Vicodin] carboplatin AdvReac THROMBOCYTO Verified 08/07/22 09:26 PENIA contrast dye Allergy Severe Hives Uncoded 08/07/22 09:26 Metal Allergy Unknown Skin Rash Uncoded 08/07/22 09:26 Seafood Allergy Unknown Skin Rash Uncoded 08/07/22 09:26 Home Medication Medication Instructions Recorded folic acid 1 mg tablet 1 mg PO DAILY #30 tabs 02/03/17 inhalational spacing device #1 ea 12/01/19 (POCKET CHAMBER spacer) melatonin 10 mg capsule 20 mg PO HS PRN sleep 11/09/20 nystatin 100,000 unit/gram topical 1 applic topical TID #30 grams 02/08/21 ointment artifi.tears(hypromellose)(PF) 1.7 1 drp ophthalmic (eye) 4-8XD PRN 07/05/21 % eye drops with applicator dry eye(s) #12 mL epinephrine 0.3 mg/0.3 mL 0.3 mg (0.3 mL) IM ONCE #2 ea 12/01/21 injection, auto-injector (EpiPen 2-Devin) albuterol sulfate 90 mcg/actuation 1 - 2 puff inhalation Q4-6H PRN ##1 12/29/21 aerosol inhaler (ProAir HFA) atenolol 50 mg tablet See Rx Instructions PO BID #225 01/06/22 tab-caps fluticasone 250 mcg-salmeterol 50 1 inh inhalation Q12H #60 ea 02/10/22 mcg/dose blistr powdr for inhalation (Advair Diskus) glucometer #1 ea 02/23/22 lancets #100 ea 02/23/22 test strips #100 ea 02/23/22 bupropion HCl 150 mg 24 hr tablet, 150 mg PO QAM #90 tabs 03/19/22 extended release bupropion HCl 300 mg 24 hr tablet, 300 mg PO QAM #90 tabs 03/19/22 extended release levothyroxine 50 mcg capsule 50 mcg PO DAILY #90 caps 03/21/22 pregabalin 75 mg capsule 75 mg PO HS #90 caps 04/12/22 methylprednisolone 4 mg tablets in See Rx Instructions PO PER PKG DIR 06/03/22 a dose pack (Medrol (Devin)) #21 dose pk ipratropium 0.5 mg-albuterol 3 mg 3 ml inhalation Q6H PRN wheezing 06/09/22 (2.5 mg base)/3 mL nebulization #90 mL soln nebulizer #1 ea 06/09/22 clonazepam 0.5 mg tablet See Rx Instructions PO DAILY 06/10/22 Anxiety, panic #42 tab-caps hydroxyzine HCl 10 mg tablet 10 mg PO TID PRN anxiety #90 tabs 06/30/22 Current Visit Medications: Current Medications Generic Name Dose Route Start Last Admin Trade Name Freq PRN Reason Stop Dose Admin Ciprofloxacin HCl 250 mg 08/07/22 06:00 08/07/22 09:45 Ciprofloxacin 250 Mg Tab PO 08/07/22 18:00 250 mg PREOP EVELYN Administration OnabotulinumtoxinA 200 units/ 0 units 08/07/22 06:00 Sodium Chloride 20 ml IJ 08/07/22 18:00 DIRECTED EVELYN Ringer's Solution 1,000 mls @ 80 mls/hr 08/07/22 06:00 08/07/22 09:40 IV 09/03/22 23:59 80 mls/hr INFUSION EVELYN Administration IV Miscellaneous Supplies 1 each 08/07/22 06:00 Iv Access IV 09/03/22 23:59 DIRECTED EVELYN Sodium Chloride 0 ml 08/07/22 06:00 Normal Saline Flush 10 Ml Syr IV 09/03/22 23:59 PRN PRN Sodium Chloride 0 ml 08/07/22 06:00 Normal Saline 10 Ml Vial IJ 09/03/22 23:59 DIRECTED PRN Sterile Water 0 ml 08/07/22 06:00 Water,Injection,Sterile 10 Ml Vial IJ 09/03/22 23:59 DIRECTED PRN PFSH Active Problems Active Problems: Problem Status Onset Code Chronic fatigue R53.82 Eating disorder 05/19/16 F50.9 BRANDON (generalized anxiety disorder) F41.1 Gastroesophageal reflux disease K21.9 Irritable bowel syndrome without diarrhea K58.9 Multiple sclerosis 09/26/12 G35 Occipital neuralgia M54.81 Other injury of flexor muscle, fascia and tendon of right ring finger at wrist and hand level, initial encounter 09/11/16 S66.194A Palpitations R00.2 Panic disorder F41.0 Peripheral polyneuropathy G62.9 Primary malignant neoplasm of lung metastatic to other site C34.90 Severe episode of recurrent major depressive disorder, with psychotic features F33.3 Chronic prescription benzodiazepine use Z79.899 Agoraphobia with panic attacks F40.01 Isolation, social Z60.4 Thyroid nodule E04.1 Lung cancer C34.90 COPD (chronic obstructive pulmonary disease) J44.9 Drug-induced hypothyroidism E03.2 Anxiety F41.9 Falls frequently R29.6 Chronic pain G89.29 Wheelchair dependent Z99.3 Candidal intertrigo B37.2 Weight gain R63.5 Chronic disease /disorder R69 Avoidance coping F43.8 Encounter for medication review and counseling Z71.89 Multinodular thyroid E04.2 Impacted cerumen, right ear H61.21 Leg pain M79.606 Multiple sclerosis G35 Lower urinary tract symptoms (LUTS) R39.9 Increase in creatinine R79.89 Elevated hemoglobin A1c R73.09 Medication management Z79.899 Neurogenic bladder N31.9 Prediabetes R73.03 Dysphagia R13.10 Dysarthria R47.1 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 hesitancy, but no dysuria.. NO BLOOD PER UA (08/2019) History of Clostridioides difficile colitis History of substance abuse MS (multiple sclerosis) Nightmares resolved .. 2' CBD Palliative care patient Met w/ Dr. De Leon, 10/2020 .. considering morphine for pain & SOB Post covid-19 condition, unspecified Shingles (herpes zoster) polyneuropathy painful blistering Stress due to illness of family member Mo dementia worsening, Step-Fa hospitalized x 5 days ([facility]) .. hope Brother can get guardianship .. Gr-dtr @ [facility] wit illness .. Sister just out of rehab. Tetanus vaccination not carried out live ingredient contra-indicated administered 07/2021 Tobacco use disorder QUIT 2019. 0-3 cigarettes/day (04/2019) . Hx 1-2 PPD 20 yrs ago. Lately no smoking bc of malaise. Urinary retention Myrbetriq helped, but then became incontinent ==> now s/p BOTOX with great results, 02/17/22, ik Urinary urgency Resolved with BOTOX, 01/2022 Medical History Comments:: Daughter takes awhile to come out of it; pt reports currently being worked up for possible diabetes Surgical History Surgical History Abdominal hysterectomy (~1989) Endometriosis Appendectomy (10/24/07) Oophrectomy, Both (~1989) with MARCO for endometriosis Repair of inguinal hernia (~1994) Tonsillectomy Tobacco Smoking/Tobacco Use Status: Former Tobacco Use Second hand exposure: Yes Counseling given: counseling >3 minutes Alcohol Alcohol Intake: never Substance Use Substance use: Never Substance use type: does not use Vital Signs and Lab Results Vital Signs Most Recent Vital Signs in EMR: Most Recent Vital Signs Temp Pulse Resp BP Pulse Ox 36.4 C L 63 18 141/62 H 95 08/07/22 09:10 08/07/22 09:10 08/07/22 09:10 08/07/22 09:10 08/07/22 09:10 Lab Results Blood Type / Crossmatch: No Data to Display Complete Blood Count: White Blood Count 11.70 10^3/uL (4.4-10.8) H 07/10/22 08:20 Red Blood Count 4.88 10^6/uL (3.93-5.22) 07/10/22 08:20 Hemoglobin 14.3 g/dL (11.2-15.7) 07/10/22 08:20 Hematocrit 43.4 % (36.0-46.0) 07/10/22 08:20 Platelet Count 312 10^3/uL (130-400) 07/10/22 08:20 Complete Metabolic Panel: Sodium 142 mmol/L (136-145) 07/10/22 08:20 Potassium 3.5 mmol/L (3.5-5.1) 07/10/22 08:20 Chloride 107 mmol/L (98-107) 07/10/22 08:20 Carbon Dioxide 25.1 mmol/L (21.0-32.0) 07/10/22 08:20 BUN 14 mg/dL (7-18) 07/10/22 08:20 Creatinine 1.4 mg/dL (0.55-1.02) H 07/10/22 08:20 Est GFR (CKD-EPI 2020) 40.73 (mL/min/1.73m2) 07/10/22 08:20 Calcium 8.8 mg/dL (8.5-10.1) 07/10/22 08:20 Albumin 3.0 g/dL (3.4-5.0) L 07/10/22 08:20 Glucose 96 mg/dL (74-106) 07/10/22 08:20 Liver Function Panel: Alanine Aminotransferase (ALT/SGPT) 35 U/L (14-59) 07/10/22 08:20 Aspartate Amino Transf (AST/SGOT) 18 U/L (15-37) 07/10/22 08:20 Coagulation Panel: No Data to Display Cardiac Panel: No Data to Display Arterial Blood Gas: No Data to Display Venous Blood Gas: No Data to Display Pancreas Panel: No Data to Display Thyroid Panel: Thyroid Stimulating Hormone (TSH) 2.83 uIU/mL (0.36-3.74) 07/10/22 08:20 Thyroxine (T4) 10.5 ug/dL (4.7-13.3) 07/10/22 08:20 Infectious Disease: No Data to Display Blood Cultures: No Data to Display Toxicology Panel: No Data to Display Anesthesia Assessment and Plan Anesthesia History Personal History: No History of Anesthesia Complications Family History: Family History Unknown Exercise Tolerance Exercise Tolerance: Metabolic Equivalents>4 Pertinent Negatives Pertinent Negatives: No Major Cardiovascular Symptoms or Complaints and No Major Pulmonary Symptoms or Complaints Cardiac & Pulmonary Exam Cardiac Exam: Normal S1/S2 Heart Sounds Pulmonary Exam: Clear Bilateral Breath Sounds Cardiac and Pulmonary Comment:: Nebulizer last night, breathing at baseline today Implantable Cardiac Device Does patient have a Pacemaker or an ICD?: No Airway Exam Known Difficult Airway: No Mallampati Class: 2 Mouth Opening: Normal (> 3cm) Thyromental Distance: Greater than 3 cm Neck Range of Motion: Full ROM Neck Circumference: Normal Teeth Condition: Generalized Poor Dentition and Edentulous (Upper) ASA Classification ASA Score: ASA 3 Emergency Case?: No NPO Status NPO Status: NPO Clears >2 hours, Solids >8 hours Anesthesia Plan Resuscitation Status: Full Code Anesthesia Technique: General Anesthesia Airway Planned: Natural Airway Monitors Used: Standard Monitors
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
[2022-08-07] MEDS: Lidocaine 2% Jelly 6 ML SYR (12:13)
--- NOTE | 2022-08-07 12:22 | W.PM.DSUDISC ---
Date of service: 08/07/22 Time of Service: 12:23 Discharge Plan Disposition Condition: Stable Discharge Details Reason For Visit: cystoscopy with Botox Attending Provider: Blaise Alvarez Primary Care Provider: Yadira Nunez Home Meds and New Rx's Prescriptions: No Action melatonin 10 mg capsule 20 mg PO HS PRN (Reason: sleep) nystatin 100,000 unit/gram ointment 1 applic topical TID Qty: 30 1RF Rx Instructions: Trial for rash epinephrine [EpiPen 2-Devin] 0.3 mg/0.3 mL auto-injector 0.3 mg IM ONCE Qty: 2 1RF methylprednisolone [Medrol (Devin)] 4 mg tablets,dose pack See Rx Instructions PO PER PKG DIR Qty: 21 0RF Rx Instructions: PO PER PKG DIR ipratropium-albuterol 0.5 mg-3 mg(2.5 mg base)/3 mL solution for nebulization 3 ml inhalation Q6H PRN (Reason: wheezing) Qty: 90 1RF (DME) nebulizer See Rx Instructions .Route .MEDSUPPLY Qty: 1 0RF Rx Instructions: As directed artifi.tears(hypromellose)(PF) 1.7 % drops with applicator 1 drp ophthalmic (eye) 4-8XD PRN (Reason: dry eye(s)) Qty: 12 0RF albuterol sulfate [ProAir HFA] 90 mcg/actuation HFA aerosol inhaler 1 - 2 puff Inhalation Q4-6H PRN Qty: 1 3RF Rx Instructions: DISPENSE ALBUTEROL INHALER BRAND WITH SPACER COVERED BY INSURANCE fluticasone propion-salmeterol [Advair Diskus] 250-50 mcg/dose blister with device 1 inh inhalation Q12H Qty: 60 1RF (DME) glucometer See Rx Instructions .Route .MEDSUPPLY Qty: 1 0RF Rx Instructions: As directed and covered and available (DME) test strips See Rx Instructions .Route .MEDSUPPLY Qty: 100 0RF Rx Instructions: As directed (DME) lancets Misc See Rx Instructions .ROUTE .MEDSUPPLY Qty: 100 3RF Rx Instructions: As directed to check blood glucose daily. No insulin. Dispense covered brand. hydroxyzine HCl 10 mg tablet 10 mg PO TID PRN (Reason: anxiety) Qty: 90 1RF (DME) POCKET CHAMBER Spacer See Rx Instructions .ROUTE .MEDSUPPLY Qty: 1 0RF Rx Instructions: As directed atenolol 50 mg tablet See Rx Instructions PO BID Qty: 225 3RF Dose Instruction: Take 50 mg (1 pill) AM and 75mg (1 1/2 pill) PM PO BID; Rx Instructions: Take 50 mg (1 pill) AM and 75mg (1 1/2 pill) PM PO BID; bupropion HCl 300 mg tablet extended release 24 hr 300 mg PO QAM MDD 450 mg Qty: 90 1RF Rx Instructions: Continue @ higher dose bupropion HCl 150 mg tablet extended release 24 hr 150 mg PO QAM MDD 450 mg Qty: 90 3RF Rx Instructions: Combine with 300mg for 450mg levothyroxine 50 mcg capsule 50 mcg PO DAILY Qty: 90 1RF Hold Instructions: making her sick? pregabalin 75 mg capsule 75 mg PO HS Qty: 90 1RF Rx Instructions: Return to 75mg dosing clonazepam 0.5 mg tablet See Rx Instructions PO DAILY MDD .75MG Qty: 42 2RF Rx Instructions: 1/2 tab AM. 1 tab PM. orally daily; folic acid 1 MG tablet 1 mg PO DAILY Qty: 30 0RF Discharge Instructions Additional Instructions: pt must void prior to discharge followup appt in 6 months but ask pt to call @ 1 week with a progress report Activity:: Activity as Tolerated Shower/Bathe:: 24 hours Equipment/Supplies:: No Equipment Needed Diet:: As Tolerated DS: Diagnosis Discharge Diagnosis (1) Neurogenic bladder: Status: Acute
--- NOTE | 2022-08-07 12:26 | W.PM.OP ---
Date of service: 08/07/22 Time of Service: 12:26 Operative Note Operative Note DATE OF PROCEDURE: 08/07/22 PRE-OP DIAGNOSIS: Neurogenic Bladder POST-OP DIAGNOSIS: same PROCEDURE: cystoscopy with transurethral injection Botox into the bladder Refer to Anesthesia Record PATHOLOGY: none sent COMPLICATIONS: None Patient was transported to: PACU Implants: 200 Units Botox Indications: This is a 71-year-old woman who has a history of a neurogenic bladder due to multiple sclerosis. Initially, she was having urinary hesitancy. Her symptoms then transitioned into urinary frequency, urgency and urgency incontinence. She improved with an injection of Botox into the detrusor muscle about 6 months ago. Her symptoms have gradually returned and she presents now for repeat injection Findings: Normal bladder Procedure Description: The patient was given a dose of oral antibiotics and brought to the operating room on 08/07/2022. After successful induction of general anesthesia, she was placed in the dorsal lithotomy position. Her genitalia was prepped and draped. 2% Xylocaine jelly was instilled into the urethra to act as a local anesthetic. A 20 Bengali urethrotome sheath was passed through the urethra into the bladder. The bladder was inspected with a 30 degree lens. The bladder appeared smooth-walled with no papillary or nodular lesions. We then utilized a side kick needle to inject Botox into the detrusor muscle. We injected in 20 different locations with a grid pattern of 4 vertical rows and 5 horizontal rows. We avoided the trigone on and bladder neck. For the injection, we utilized 200 units of Botox which was mixed and 20 mL of dilute. A total of 1 mL was injected at each site. Once the procedure was completed, the cystoscope was withdrawn. The bladder was drained with a straight catheter. The patient tolerated the procedure well.
[2022-08-07] MEDS: Ketorolac 15 MG/ML VIAL IVP (12:50)
--- NOTE | 2022-08-07 13:34 | W.ANESPOSTOP ---
Postoperative Evaluation Date, Time and Location Date Performed: 08/07/22 Time Performed: 13:34 Patient Location: Day Surgery Unit Vital Signs Most Recent Imported Vital Signs: Most Recent Vital Signs Temp Pulse Resp BP Pulse Ox 36.5 C 70 18 113/57 L 94 08/07/22 13:01 08/07/22 13:01 08/07/22 13:01 08/07/22 13:01 08/07/22 13:01 Pain Score Most Recent Pain Score: Most Recent Pain Score Pain Level 5 08/07/22 13:01 Assessment Mental Status: Awake (Alert & Oriented to Patient Baseline) Airway and Respiratory Function: Patent airway with normal (patient baseline) respiratory exam Cardiovascular Function: Hemodynamically Stable Hydration Status: Adequately Hydrated Nausea & Vomiting: No Nausea or Vomiting Pain: Pain is tolerable per patient Peripheral Nerve Block: Patient did not receive a nerve block
== END 2022-08-07 14:12 | disposition home or self-care (01) ==
PROVIDERS: PCP Student in an Organized Health Care Education/Training Program; Visit Provider Urology
PROC: (CPT 52287; principal; 2022-08-07 10:00)
DX: N31.8 Other neuromuscular dysfunction of bladder (principal); R35.0 Frequency of micturition; N39.41 Urge incontinence
CPT/HCPCS: 52287; J0585; J1885; J2405

== ENCOUNTER 2022-09-07 01:34 | Outpatient (CLI) | payer OTHER, MEDICAID, SELFPAY ==
--- NOTE | 2022-09-07 07:00 | DI.US_ITS ---
Exam(s) US THYROID EXAM: US THYROID CLINICAL HISTORY: Assess for change,F/u US lesion by FNA,thyroid nodule,e04.1. TECHNIQUE: Ultrasound thyroid performed using standard protocol. COMPARISON: US US THYROID from 05/23/2021 FINDINGS: ISTHMUS: 3 mm RIGHT LOBE: Size: 3.9 x 1.3 x 1.4 cm Echogenicity: Normal. Vascularity: Normal. Nodules: There is a 4 mm simple cyst in the superior pole. No follow-up is recommended. There is a 0.7 x 0.5 x 0.7 cm mixed isoechoic nodule. This previously measured 0.8 x 0.8 x 0.9 cm. Due to its size and appearance, no follow-up is recommended. There is a 1.2 x 0.8 x 1.1 cm solid hypoechoic nod ule in the inferior pole. This is consistent with a TI rads level 4 nodule. Due to its size, follow -up is recommended. LEFT LOBE: Size: 3.8 x 1.4 x 1.6 cm Echogenicity: Normal. Vascularity: Normal. Nodules: There is a simple cyst in the superior pole. No follow-up is recommended. No suspicious no dules are seen in the left lobe. OTHER FINDINGS: None. IMPRESSION: Right thyroid nodule. Due to its size follow-up is recommended. Please see the above discussion for complete details. DATA REPOSITORY:
== END 2022-09-07 01:54 ==
LOC: DI 01:37
PROVIDERS: PCP Student in an Organized Health Care Education/Training Program; Visit Provider Otolaryngology
DX: E04.1 Nontoxic single thyroid nodule (principal)
CPT/HCPCS: 76536

== ENCOUNTER 2022-09-21 10:49 | Outpatient (CLI) | payer OTHER, MEDICAID, SELFPAY ==
[2022-09-21 12:12] LABS: Iron 68 ug/dL (50-170); Total Iron Binding Capacity 241 ug/dL (250-450); Transferrin Sat 28 % (15-50)
[2022-09-21 12:28] LABS: Ferritin 157 ng/mL (8-252); TSH (W/Ref FT4) 2.97 uIU/mL (0.36-3.74)
[2022-09-21 12:33] LABS: Folate > 20.0 ng/mL (8.6-20.0)
[2022-09-21 12:40] LABS: Anion Gap 15.6 mmol/L (3-11); BUN 19 mg/dL (7-18); CO2 20.4 mmol/L (21.0-32.0); CREATININE 1.5 mg/dL (0.55-1.02); Calcium 8.9 mg/dL (8.5-10.1); Chloride 110 mmol/L (98-107); Estimated GFR 37.49 (mL/min/1.73m2); Glucose 111 mg/dL (74-106); Potassium 3.9 mmol/L (3.5-5.1); Sodium 146 mmol/L (136-145); Vitamin B12 256 pg/mL (193-986)
== END 2022-09-21 10:50 | disposition home or self-care (01) ==
LOC: LBO 10:49
PROVIDERS: Nurse Practitioner Family; PCP Student in an Organized Health Care Education/Training Program; Visit Provider Student in an Organized Health Care Education/Training Program
DX: E03.9 Hypothyroidism, unspecified (principal); L65.9 Nonscarring hair loss, unspecified; E46 Unspecified protein-calorie malnutrition; R53.83 Other fatigue; N13.9 Obstructive and reflux uropathy, unspecified; N17.9 Acute kidney failure, unspecified
CPT/HCPCS: 36415; 80048; 81003; 82607; 82728; 82746; 83540; 83550; 84443

== ENCOUNTER 2022-09-22 13:51 | Outpatient (REF) | payer OTHER, MEDICAID, SELFPAY ==
[2022-09-22 10:07] LABS: Bilirubin Negative (Negative); Blood Negative (Negative); Clarity Cloudy (Clear); Glucose Negative (Negative); Ketones Negative (Negative); Leukocyte Esterase Moderate (Negative); Nitrite Positive (Negative); Specific Gravity 1.025 (1.005-1.025); Urobilinogen 0.2 mg/dL (Up to 0.2)
[2022-09-22 10:13] LABS: Epithelial Cells Few HPF (Negative); RBC 0-2 HPF (0-2); WBC >50 HPF (0-5)
[2022-09-22 10:14] LABS: Bacteria Moderate HPF (Negative); C & S Indicated? Yes; Casts Negative LPF (Negative); Crystals Negative HPF (Negative); Mucus Negative (Negative)
== END 2022-09-22 13:52 | disposition home or self-care (01) ==
LOC: LBN 13:51
PROVIDERS: PCP Student in an Organized Health Care Education/Training Program; Visit Provider Student in an Organized Health Care Education/Training Program
DX: N13.8 Other obstructive and reflux uropathy (principal); R39.11 Hesitancy of micturition; R39.89 Other symptoms and signs involving the genitourinary system
CPT/HCPCS: 87077; 81003; 81015; 87086; 87186

== ENCOUNTER → 2022-11-08 01:19 | Outpatient (CLI) | payer OTHER, MEDICAID, SELFPAY ==
--- NOTE | 2022-11-08 07:15 | DI.RAD_ITS ---
Exam(s) XR CHEST 2V PA LATERAL EXAM: XR CHEST 2V PA LATERAL CLINICAL HISTORY: eval for effusion, new pathology,lt lung pain, pleurisy,r09.1 TECHNIQUE: 2D digital imaging was performed. COMPARISON: CR XR CHEST 2V PA LATERAL from 06/16/[address] CHEST WO from 07/09/2020 CR XR CHEST 2V PA LATERAL from 06/09/2022 FINDINGS: HEART: Normal size. Aorta: Not dilated. PULMONARY VASCULATURE: Normal. LUNGS: Scarring laterally left upper lobe. Scarring above left diaphragm, similar to prior exam. Mi ld areas of scarring in right upper lobe.. PLEURAL SPACE: No pleural effusion or pneumothorax. BONE:Unremarkable for age. IMPRESSION: No acute abnormality. DATA REPOSITORY: RADIATION DOSE DELIVERED:
== END ==
PROVIDERS: PCP Student in an Organized Health Care Education/Training Program; Visit Provider Student in an Organized Health Care Education/Training Program
DX: R09.1 Pleurisy (principal)
CPT/HCPCS: 71046

== ENCOUNTER 2022-11-10 19:17 | Outpatient (REF) | payer OTHER, MEDICAID, SELFPAY ==
[2022-11-10 14:49] LABS: Bilirubin Negative (Negative); Blood Trace-intact (Negative); Clarity Turbid (Clear); Epithelial Cells Few HPF (Negative); Glucose Negative (Negative); Ketones Negative (Negative); Leukocyte Esterase Large (Negative); Nitrite Negative (Negative); RBC 0-2 HPF (0-2); Urobilinogen 0.2 mg/dL (Up to 0.2); WBC >50 HPF (0-5); pH 5.5 (5-8)
[2022-11-10 14:50] LABS: Bacteria Many HPF (Negative); C & S Indicated? Yes; Casts Negative LPF (Negative); Crystals Negative HPF (Negative); Mucus Trace (Negative)
== END 2022-11-10 19:18 | disposition home or self-care (01) ==
LOC: LBN 19:17
PROVIDERS: PCP Student in an Organized Health Care Education/Training Program; Visit Provider Student in an Organized Health Care Education/Training Program
DX: R39.89 Other symptoms and signs involving the genitourinary system (principal); R82.998 Other abnormal findings in urine; R82.79 Other abnormal findings on microbiological examination of urine
CPT/HCPCS: 87077; 81003; 81015; 87086; 87186

== ENCOUNTER → 2022-12-18 02:05 | Outpatient (CLI) | payer OTHER, MEDICAID, SELFPAY ==
--- NOTE | 2022-12-18 07:00 | DI.MAMMO_ITS ---
Exam(s) MAMMO SCREENING EXAM: MAMMO SCREENING CLINICAL HISTORY: screening,Z12.39 TECHNIQUE: Mammograms were interpreted according to the usual protocol including computer analysis w ith CAD system, tomosynthesis and C-view imaging. COMPARISON: SCREENING [facility] MAMMO W/CAD DIGI from 06/21/2011 FINDINGS: The breasts are composed of scattered fibroglandular densities, Breast Density category B. No suspicious masses or suspicious microcalcifications are seen. No skin thickening or abnormal axillary lymph nodes are seen. There has been no significant change from prior exams. IMPRESSION: BI-RADS Category 1, Negative mammogram Yearly screening mammography is recommended. Breast Density - Category B, scattered fibroglandular densities. A negative radiographic report should not delay biopsy if a dominant or clinically suspicious mass is present. Up to ten percent of cancers are not identified on mammography. A negative report may reinforce clinical impression. Adenosis and dense breasts may obscure an underlying neoplasm. False positive reports average 6 to 10%. Patient will receive a letter notifying them of these results.
--- NOTE | 2022-12-18 08:30 | DI.DEXA_ITS ---
Exam(s) XR DEXA BONE DENSITY W/WO JAY EXAM: XR DEXA BONE DENSITY W/WO JAY CLINICAL HISTORY: Eval bone density,SCREENING FOR OSTEOPOROSIS IN POSTMENOPAUSAL WOMAN,Z78.0 TECHNIQUE: COMPARISON: Comparison examination is 09/07/2003. FINDINGS: Lateral Spine Image: Unremarkable. No compression deformities identified. Left hip: Total T-Score: -3.1. This compares to -1.9 on the prior examination. Total Z-Score: -1.6 T- and Z-scores: Findings are consistent with osteoporosis. Lumbar Spine: Total T-Score: -1.9. This compares to -1.7 on the prior examination. Total Z-Score: 0.2 T- and Z-scores: Findings are consistent with osteopenia. IMPRESSION: Osteoporosis in the left hip.
== END ==
PROVIDERS: PCP Student in an Organized Health Care Education/Training Program; Visit Provider Student in an Organized Health Care Education/Training Program
DX: Z12.39 Encounter for other screening for malignant neoplasm of breast; Z78.0 Asymptomatic menopausal state; Z13.820 Encounter for screening for osteoporosis; M81.0 Age-related osteoporosis without current pathological fracture
CPT/HCPCS: 77063; 77067; 77080

== ENCOUNTER → 2023-03-02 09:31 | Outpatient (BNVA) | payer OTHER, MEDICAID, SELFPAY | PROVIDERS: PCP Student in an Organized Health Care Education/Training Program; Referring Provider Student in an Organized Health Care Education/Training Program; Visit Provider Surgery | DX: R13.10 Dysphagia, unspecified (principal); R94.8 Abnormal results of function studies of other organs and systems; Z12.11 Encounter for screening for malignant neoplasm of colon; Z80.0 Family history of malignant neoplasm of digestive organs | CPT/HCPCS: 99213 ==

== ENCOUNTER 2023-03-20 06:22 | Day surgery (SDC) | payer OTHER, MEDICAID, SELFPAY ==
[2023-03-20 06:21] VITALS: BP 149/71; PULSE 75; RESP 20; TEMP 36.6; O2SAT 94
[2023-03-20] MEDS: Lactated Ringers 1,000 ML 80 ML IV (06:40)
--- NOTE | 2023-03-20 06:58 | ANES.PREOP_ITS ---
General Info Date of Service Date Performed: 03/20/23 Height: 5 ft 1 in Weight: 66.3 kg Body Mass Index (BMI): 27.6 Surgical Procedure: Operation Date: 03/20/23 07:35 Proposed Procedure Side Surgeon p Colonoscopy/Gastroscopy Sohan Haddad MD Meds Allergies and Home Medications Allergies Allergy/AdvReac Type Severity Reaction Status Date / Time cortisone [Cortisone] Allergy Severe Passed out Verified 03/20/23 06:31 venom-honey bee Allergy Severe Anaphylaxsi Verified 03/20/23 06:31 [bee venom (honey bee)] s Cephalosporins Allergy Unknown Verified 03/20/23 06:31 naproxen [From Naprosyn] Allergy Unknown Verified 03/20/23 06:31 Penicillins Allergy Unknown Verified 03/20/23 06:31 Sulfa (Sulfonamide Allergy Unknown Verified 03/20/23 06:31 Antibiotics) erythromycin base Allergy Verified 03/20/23 06:31 lorazepam [From Ativan] AdvReac Severe Agitation Verified 03/20/23 06:31 venlafaxine [From Effexor] AdvReac Intermediate hallucinati Verified 03/20/23 06:31 ons acetaminophen [From Vicodin] AdvReac Unknown Nausea Verified 03/20/23 06:31 hydrocodone bitartrate AdvReac Unknown Nausea Verified 03/20/23 06:31 [From Vicodin] carboplatin AdvReac THROMBOCYTO Verified 03/20/23 06:31 PENIA contrast dye Allergy Severe Hives Uncoded 03/20/23 06:31 Metal Allergy Unknown Skin Rash Uncoded 03/20/23 06:31 Seafood Allergy Unknown Skin Rash Uncoded 03/20/23 06:31 Home Medication Medication Instructions Recorded folic acid 1 mg tablet 1 mg PO DAILY #30 tabs 02/03/17 inhalational spacing device #1 ea 12/01/19 (POCKET CHAMBER spacer) melatonin 10 mg capsule 20 mg PO HS PRN sleep 11/09/20 nystatin 100,000 unit/gram topical 1 applic topical TID #30 grams 02/08/21 ointment artifi.tears(hypromellose)(PF) 1.7 1 drp ophthalmic (eye) 4-8XD PRN 07/05/ % eye drops with applicator dry eye(s) #12 mL epinephrine 0.3 mg/0.3 mL 0.3 mg (0.3 mL) IM ONCE #2 ea 12/01/21 injection, auto-injector (EpiPen 2-Devin) albuterol sulfate 90 mcg/actuation 1 - 2 puff inhalation Q4-6H PRN ##1 12/29/21 aerosol inhaler (ProAir HFA) fluticasone 250 mcg-salmeterol 50 1 inh inhalation Q12H #60 ea 02/10/22 mcg/dose blistr powdr for inhalation (Advair Diskus) lancets #100 ea 02/23/22 nebulizer #1 ea 06/09/22 Caps - intolerant of wigs #2 ea 08/17/22 blood sugar diagnostic (OneTouch #100 ea 09/20/22 Verio test strips) glucometer #1 ea 09/20/22 pregabalin 75 mg capsule 75 mg PO HS #90 caps 10/06/22 bupropion HCl 300 mg 24 hr tablet, 300 mg PO QAM #90 tabs 11/03/22 extended release (Wellbutrin XL) continuous gluc meter #1 ea 11/30/22 atenolol 50 mg tablet See Rx Instructions PO BID #225 01/11/23 tab-caps clonazepam 0.5 mg tablet See Rx Instructions PO DAILY 01/30/23 Anxiety, panic #42 tab-caps hydroxyzine HCl 10 mg tablet See Rx Instructions .Route 02/15/23 .COMPLEX #90 tabs ipratropium 0.5 mg-albuterol 3 mg See Rx Instructions .Route 02/15/23 (2.5 mg base)/3 mL nebulization .COMPLEX #90 mL soln fluoxetine 20 mg tablet 20 mg PO DAILY #30 tabs 02/26/23 bisacodyl 5 mg tablet,delayed 5 mg PO ONCE #4 tabs 03/02/23 release (Dulcolax (bisacodyl)) magnesium oxide 400 mg PO DAILY 03/02/23 polyethylene glycol 3350 17 17 g PO ONCE #238 grams 03/02/23 gram/dose oral powder triamcinolone acetonide 0.1 % 1 applic topical DAILY 03/02/23 topical cream levothyroxine 50 mcg capsule 50 mcg PO DAILY #90 caps 03/13/23 Current Visit Medications: Current Medications Generic Name Dose Route Start Last Admin Trade Name Freq PRN Reason Stop Dose Admin Ringer's Solution 1,000 mls @ 80 mls/hr 03/20/23 06:00 03/20/23 06:40 IV 03/20/23 23:59 80 mls/hr INFUSION EVELYN Administration IV Miscellaneous Supplies 1 each 03/20/23 06:00 Iv Access IV 03/20/23 23:59 DIRECTED EVELYN Sodium Chloride 0 ml 03/20/23 06:00 Normal Saline Flush 10 Ml Syr IV 03/20/23 23:59 PRN PRN Sodium Chloride 0 ml 03/20/23 06:00 Normal Saline 10 Ml Vial IJ 03/20/23 23:59 DIRECTED PRN Sterile Water 0 ml 03/20/23 06:00 Water,Injection,Sterile 10 Ml Vial IJ 03/20/23 23:59 DIRECTED PRN PFSH Active Problems Active Problems: Problem Status Onset Code Abnormal positron emission tomography (PET) scan R94.8 Encounter for colonoscopy in patient with family history of colon cancer Z12.11, Z80.0 Dysphagia R13.10 Lung cancer C34.90 COPD (chronic obstructive pulmonary disease) J44.9 Postprandial abdominal bloating R14.0 Osteoporosis ~12/2022 M81.0 Diabetes mellitus E11.9 UTI symptoms R39.9 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, U09.9 Seborrheic dermatitis L21.9 Anxiety F41.9 Chronic fatigue R53.82 Fatigue due to excessive exertion T73.3XXA Exertional dyspnea R06.09 Palpitations R00.2 Agoraphobia with panic attacks F40.01 Panic disorder F41.0 Chronic prescription benzodiazepine use Z79.899 Isolation, social Z60.4 Eating disorder 05/19/16 F50.9 BRANDON (generalized anxiety disorder) F41.1 Gastroesophageal reflux disease K21.9 Alopecia L65.9 Irritable bowel syndrome without diarrhea K58.9 Multiple sclerosis 09/26/12 G35 Occipital neuralgia M54.81 Peripheral polyneuropathy G62.9 Thyroid nodule E04.1 Drug-induced hypothyroidism E03.2 Falls frequently R29.6 Weight gain R63.5 Chronic disease /disorder R69 Avoidance coping F43.8 Encounter for medication review and counseling Z71.89 Multinodular thyroid E04.2 Impacted cerumen, right ear H61.21 Leg pain M79.606 Multiple sclerosis G35 Lower urinary tract symptoms (LUTS) R39.9 Elevated hemoglobin A1c R73.09 Medication management Z79.899 Neurogenic bladder N31.9 Kidney stone on left side N20.0 RUQ abdominal pain R10.11 Medical History Medical History Candidal intertrigo Painful skin lesions since October .. Nystatin ointment helps, they will add zinc paste to regimen. Wheelchair dependent FOR VACATION/TRAVEL; Renting a scooter for upcoming vacation, [place]22, [place] ..For mod-long outings .. trying to walk more for exercise @ home, 01/2021 Severe episode of recurrent major depressive disorder, with psychotic features Primary malignant neoplasm of lung metastatic to other site Stable per PET, 12/2021. Dx 2017 PET scan 10/31/18 [facility] [place] - new 9 mm nodular opacity right upper lobe. Other opacities stable. FDG avid nodule right lobe thyroid 09/03/19- PET scan. no new sites of suspected active malignancy or metastasis. Dr. Agata MD..12/2021 PET Scan stable Other injury of flexor muscle, fascia and tendon of right ring finger at wrist and hand level, initial encounter (09/11/16) Post covid-19 condition, unspecified Vocal cord anomaly Agree with [employer]IST (Oly Russell) to work with [employer] Prediabetes Newly DM with A1C > 6/5! Spring/Summer 2022 Urinary urgency Resolved with BOTOX, 01/2022 Abdominal or pelvic swelling, mass, or lump, right upper quadrant swells up at night , Hx tauma Urinary retention Myrbetriq helped, but then became incontinent ==> now s/p BOTOX with great results, 02/17/22, [place] Dream anxiety disorder resolved, 2' CBD Nightmares resolved .. 2' CBD Tetanus vaccination not carried out live ingredient contra-indicated administered 07/2021 History of Clostridioides difficile colitis Family history of substance abuse History of substance abuse Chronic pain Stress due to illness of family member Mo dementia worsening, Step-Fa hospitalized x 5 days ([facility]) .. hope Brother can get guardianship .. Gr-dtr @ [facility] wit illness .. Sister just out of rehab. Shingles (herpes zoster) polyneuropathy painful blistering Hematuria noticing dark, red urine .. hesitancy, but no dysuria.. NO BLOOD PER UA (08/2019) Palliative care patient Met w/ Dr. De Leon, 10/2020 .. considering morphine for pain & SOB Tobacco use disorder QUIT 2019. 0-3 cigarettes/day (04/2019) . Hx 1-2 PPD 20 yrs ago. Lately no smoking bc of malaise. Galactorrhea not associated with childbirth (09/26/12) MS (multiple sclerosis) Anxiety and depression Eating disorder Medical History Comments:: Pt. stated last cystoscopy she was told she had a hard time waking up states daughter also has delayed emergence Surgical History Surgical History Tonsillectomy Oophrectomy, Both (~1989) with MARCO for endometriosis Abdominal hysterectomy (~1989) Endometriosis Repair of inguinal hernia (~1994) Appendectomy (10/24/07) Tobacco Smoking/Tobacco Use Status: Former Tobacco Use Second hand exposure: Yes Counseling given: counseling >3 minutes Alcohol Alcohol Intake: never Substance Use Substance use: Never Substance use type: does not use Details: cbd gummies Vital Signs and Lab Results Vital Signs Most Recent Vital Signs in EMR: Most Recent Vital Signs Temp Pulse Resp BP Pulse Ox 36.6 C 75 20 149/71 H 94 03/20/23 06:21 03/20/23 06:21 03/20/23 06:21 03/20/23 06:21 03/20/23 06:21 Point of Care Results Point of Care Results: Finger Stick Blood Glucose 115 03/20/23 06:45 Lab Results Blood Type / Crossmatch: No Data to Display Complete Blood Count: No Data to Display Complete Metabolic Panel: No Data to Display Liver Function Panel: No Data to Display Coagulation Panel: No Data to Display Cardiac Panel: No Data to Display Arterial Blood Gas: No Data to Display Venous Blood Gas: No Data to Display Pancreas Panel: No Data to Display Thyroid Panel: No Data to Display Infectious Disease: No Data to Display Blood Cultures: No Data to Display Toxicology Panel: No Data to Display Anesthesia Assessment and Plan Anesthesia History Personal History: Malignant Hyperthermia Family History: No Family History of Anesthesia Complications Exercise Tolerance Exercise Tolerance: Metabolic Equivalents>4 Implantable Cardiac Device Does patient have a Pacemaker or an ICD?: No Airway Exam Known Difficult Airway: No Mallampati Class: 2 Mouth Opening: Normal (> 3cm) Thyromental Distance: Greater than 3 cm Neck Range of Motion: Full ROM Neck Circumference: Normal Teeth Condition: Generalized Poor Dentition and Edentulous (Upper) ASA Classification ASA Score: ASA 3 Emergency Case?: No NPO Status NPO Status: NPO Clears >2 hours, Solids >8 hours Anesthesia Plan Resuscitation Status: Full Code Anesthesia Technique: General Anesthesia Airway Planned: Natural Airway Monitors Used: Standard Monitors
--- NOTE | 2023-03-20 15:27 | PDOC.ANES ---
Date of service: 03/20/23 Time of Service: 07:30 Anesthesia Note Report Anesthesia Note: During preoperative interview for C/G the patient disclosed that she has been having intermittent chest pressure that radiates down her left arm. Symptoms are resolved when she's at rest. No active symptoms currently. Dr. Haddad and genral surgery office aware and will reach out to primary care team for follow up testing. Patient and given instructions to report to the ED for any additional active symptoms.
== END 2023-03-20 06:23 | disposition home or self-care (01) ==
LOC: SUR 06:22
PROVIDERS: PCP Student in an Organized Health Care Education/Training Program; Visit Provider Student in an Organized Health Care Education/Training Program
DX: Z53.09 Procedure and treatment not carried out because of other contraindication (principal)

== ENCOUNTER 2023-03-23 11:11 | Outpatient (CLI) | payer OTHER, MEDICAID, SELFPAY ==
--- NOTE | 2023-03-23 11:00 | RT.EKG_ITS ---
APPROVED REPORT Exam: Resting ECG Reason for Exam: Chest pain/pressure Patient Location: O HR:64 bpm ECG Measurements Heart Rate 64 AXIS AK 194 P 0 QRSd 93 QRS -13 QT 466 T 10 QTc 481 Conclusion Sinus rhythm...normal P axis, V-rate 50- 99 Inferior infarct, old...Q >35mS, II III aVF Anteroseptal infarct, age indeterminate...Q >35mS, T neg, V1-V2 I have reviewed and interpreted ECG and agree with software generated interpretation.
== END 2023-03-23 11:12 | disposition home or self-care (01) ==
LOC: DI.KIM 11:13
PROVIDERS: PCP Student in an Organized Health Care Education/Training Program; Visit Provider Student in an Organized Health Care Education/Training Program
DX: R07.9 Chest pain, unspecified (principal)
CPT/HCPCS: 93010

== ENCOUNTER 2023-05-15 10:53 | Outpatient (REF) | payer OTHER, MEDICAID, SELFPAY ==
[2023-05-15 15:24] LABS: Bilirubin Small (Negative); Blood Trace-lysed (Negative); Clarity Clear (Clear); Glucose Negative (Negative); Ketones Trace mg/dL (Negative); Leukocyte Esterase Small (Negative); Nitrite Positive (Negative); Specific Gravity >= 1.030 (1.005-1.025); Urobilinogen 0.2 mg/dL (Up to 0.2)
[2023-05-15 15:42] LABS: Bacteria Moderate HPF (Negative); Epithelial Cells Few HPF (Negative); RBC 0-2 HPF (0-2)
[2023-05-15 15:43] LABS: C & S Indicated? Yes; Casts Negative LPF (Negative); Crystals Many Calcium Oxalate HPF (Negative); Mucus Trace (Negative)
== END 2023-05-15 10:54 | disposition home or self-care (01) ==
LOC: LBN 10:53
PROVIDERS: PCP Student in an Organized Health Care Education/Training Program; Visit Provider Student in an Organized Health Care Education/Training Program
DX: R39.89 Other symptoms and signs involving the genitourinary system (principal); R30.0 Dysuria; R82.998 Other abnormal findings in urine
CPT/HCPCS: 87077; 81003; 81015; 87086; 87186

== ENCOUNTER 2023-06-06 04:58 | Outpatient (CLI) | payer OTHER, MEDICAID, SELFPAY ==
[2023-06-06 10:20] LABS: HCT 45.6 % (36.0-46.0); HGB 15.1 g/dL (11.2-15.7); MCH 29.3 pg (27.0-33.0); MCHC 33.1 % (32.0-36.0); MCV 88 fL (80-95); MPV 8.6 fL (8.0-11.0); Platelet Count 264 10^3/uL (130-400); RBC 5.16 10^6/uL (3.93-5.22); RDW 13.1 % (11.7-14.6); RDW-SD 42.6 fL; WBC 9.47 10^3/uL (4.4-10.8)
[2023-06-06 12:16] LABS: ALT 54 U/L (14-59); AST 36 U/L (15-37); Albumin 3.2 g/dL (3.4-5.0); Alkaline Phosphatase 141 U/L (46-116); Anion Gap 14.5 mmol/L (3-11); Bilirubin, Total 0.5 mg/dL (0.2-1.0); CO2 21.5 mmol/L (21.0-32.0); CREATININE 1.4 mg/dL (0.55-1.02); Calcium 8.9 mg/dL (8.5-10.1); Calculated LDL 140 mg/dL (<100); Chloride 105 mmol/L (98-107); Cholesterol 217 mg/dL (<200); Estimated GFR 40.47 (mL/min/1.73m2); Glucose 95 mg/dL (74-106); HDL Cholesterol 64 mg/dL (40-60); Potassium 4.1 mmol/L (3.5-5.1); Sodium 141 mmol/L (136-145); Total Protein 7.2 g/dL (6.4-8.2); Triglyceride 69 mg/dL (<150); Vitamin B12 296 pg/mL (193-986)
[2023-06-06 12:31] LABS: BUN 15 mg/dL (7-18); Bilirubin, Direct 0.1 mg/dL (0.0-0.2)
[2023-06-06 13:22] LABS: Vitamin D 25 Total 8.2 ng/mL (30-100)
== END 2023-06-06 04:59 | disposition home or self-care (01) ==
LOC: LBO 04:59
PROVIDERS: PCP Student in an Organized Health Care Education/Training Program; Visit Provider Student in an Organized Health Care Education/Training Program
DX: Z91.89 Other specified personal risk factors, not elsewhere classified (principal); R79.89 Other specified abnormal findings of blood chemistry; N17.9 Acute kidney failure, unspecified; M81.0 Age-related osteoporosis without current pathological fracture; I25.10 Atherosclerotic heart disease of native coronary artery without angina pectoris; Z13.220 Encounter for screening for lipoid disorders
CPT/HCPCS: 36415; 80048; 80061; 80076; 82306; 85027; 82607; 83735

== ENCOUNTER 2023-08-23 09:54 | Outpatient (CLI) | payer OTHER, MEDICAID, SELFPAY ==
[2023-08-23 11:50] LABS: Abs Immature Grans 0.03 10^3/uL (0.0-0.06); Absolute Basophil Count 0.06 10^3/uL (0.0-0.2); Absolute Eosinophil Count 0.19 10^3/uL (0.0-0.7); Absolute Lymphocyte Count 2.13 10^3/uL (1.2-3.4); Absolute Neutrophil Count 5.75 10^3/uL (1.2-6.7); Basophils % 0.7 %; Eosinophils % 2.1 %; HCT 44.6 % (36.0-46.0); HGB 14.8 g/dL (11.2-15.7); Immature Grans % 0.3 %; Lymphocytes % 23.3 %; MCH 30.1 pg (27.0-33.0); MCHC 33.2 % (32.0-36.0); MCV 91 fL (80-95); MPV 8.6 fL (8.0-11.0); Monocytes % 10.9 %; Neutrophils % 62.7 %; Platelet Count 232 10^3/uL (130-400); RBC 4.92 10^6/uL (3.93-5.22); RDW 13.4 % (11.7-14.6); RDW-SD 45.2 fL; WBC 9.16 10^3/uL (4.4-10.8)
[2023-08-23 12:15] LABS: ALT 93 U/L (14-59); AST 57 U/L (15-37); Albumin 3.2 g/dL (3.4-5.0); Alkaline Phosphatase 122 U/L (46-116); Anion Gap 5.5 mmol/L (3-11); BUN 13 mg/dL (7-18); Bilirubin, Total 0.4 mg/dL (0.2-1.0); CO2 24.5 mmol/L (21.0-32.0); CREATININE 1.5 mg/dL (0.55-1.02); Calcium 8.6 mg/dL (8.5-10.1); Chloride 106 mmol/L (98-107); Estimated GFR 37.26 (mL/min/1.73m2); Glucose 130 mg/dL (74-106); Potassium 3.9 mmol/L (3.5-5.1); Sodium 136 mmol/L (136-145); TSH 2.81 uIU/Ml (0.36-3.74)
== END 2023-08-23 09:55 | disposition home or self-care (01) ==
LOC: LBO 09:54
PROVIDERS: PCP Student in an Organized Health Care Education/Training Program; Visit Provider Internal Medicine Hematology & Oncology
DX: E03.2 Hypothyroidism due to medicaments and other exogenous substances (principal)
CPT/HCPCS: 36415; 80053; 84443; 85025

== ENCOUNTER → 2023-09-07 02:39 | Outpatient (CLI) | payer OTHER, MEDICAID, SELFPAY ==
--- NOTE | 2023-09-07 08:39 | DI.CT_ITS ---
Exam(s) CT CHEST WO EXAM: CT CHEST WO CLINICAL HISTORY: LUNG CANCER C34.31 INCREASED SOB. TECHNIQUE: Imaging protocol: Axial computed tomography images were obtained and coronal and sagittal reformatted images were created and reviewed. COMPARISON: CT CT CHEST WO from 07/09/2020 FINDINGS: Tracheobronchial tree: Patent where visualized. Pulmonary parenchyma: There again seen faint ground-glass opacities in the left upper lobe. The sammy pheral nodule in the left upper lobe (series 5, image 201) measures 1.8 x 1.1 cm. This compares to 1 .7 x 1.0 cm. The ground-glass opacity in the superior segment of the left lower lobe is still presen t. There is now a peripheral 2 x 1.3 cm opacity in the left lower lobe (series 5, image 351). There are persistent ground-glass opacities in the right upper lobe. The peripheral opacity in the right upper lobe has increased in size measuring 2.6 x 1.6 cm compared to 1.5 x 1.1 cm (series 5, image 208 ). Mediastinum and Malina: No dominant adenopathy or fluid collection. The esophagus is unremarkable.There is a small hiatal hernia. Thyroid gland: Unremarkable. Pleura: There is a persistent left pleural effusion. It shows slight decrease in size compared to th e prior examination. No right pleural effusion. No pneumothorax. Heart: The heart is not dilated. Coronary artery calcifications are present. No pericardial effusion . Aorta: Thoracic aorta non-dilated. Atherosclerotic calcifications are present. Upper abdomen: There is diffuse decreased attenuation of the liver consistent with fatty infiltratio n. Lymph nodes: Within normal limits. Soft tissues: Unremarkable. Bones:Within normal limits for the patient's age. IMPRESSION: Findings of progression of metastatic disease in the chest. RADIATION DOSE DELIVERED: 390.17mGy.cm Total DLP 390.17mGy.cm Total DLP DATA REPOSITORY: All CT scans at this facility are submitted to the National Radiology Data Registry (NRDR) Dose Index Registry (DIR) with the [employer] (ACR). RADIATION OPTIMIZATION: All CT scans at this facility use at least one of these dose optimization te chniques: automated exposure control; mA and/or kV adjustment per patient size (includes targeted exa ms where dose is matched to clinical indication); or iterative reconstruction.
== END ==
PROVIDERS: PCP Student in an Organized Health Care Education/Training Program; Visit Provider Internal Medicine Hematology & Oncology
DX: C34.31 Malignant neoplasm of lower lobe, right bronchus or lung (principal)
CPT/HCPCS: 71250

== ENCOUNTER 2023-10-03 13:27 | Outpatient (REF) | payer OTHER, MEDICAID, SELFPAY | END 2023-10-03 13:28 | disposition home or self-care (01) | LOC: LBN 13:27 | PROVIDERS: PCP Student in an Organized Health Care Education/Training Program; Visit Provider Student in an Organized Health Care Education/Training Program | DX: R35.0 Frequency of micturition (principal); R39.15 Urgency of urination | CPT/HCPCS: 87077; 87086; 87186 ==

== ENCOUNTER → 2023-10-26 09:24 | Outpatient (BNVA) | payer OTHER, MEDICAID, SELFPAY | PROVIDERS: PCP Student in an Organized Health Care Education/Training Program; Referring Provider Student in an Organized Health Care Education/Training Program; Visit Provider Physical Therapy Assistant | DX: L02.415 Cutaneous abscess of right lower limb (principal) | CPT/HCPCS: 99213 ==

== ENCOUNTER → 2023-10-31 00:57 | Outpatient (CLI) | payer OTHER, MEDICAID, SELFPAY ==
--- NOTE | 2023-10-31 07:00 | DI.US_ITS ---
Exam(s) US SOFT TISSUE EXTREMITY EXAM: US SOFT TISSUE EXTREMITY CLINICAL HISTORY: Soft tissue mass right lateral thigh, growing, M79.89. TECHNIQUE: Ultrasound was performed using standard protocol. COMPARISON: No exams were available for comparison FINDINGS: Sonographic assessment utilizing grayscale and color Doppler imaging was performed and targeted to th e area of clinical concern at the upper lateral right thigh. There is a smoothly marginated hypoechoic nodule measuring 1.6 x 1.0 x 1.2 cm, located in the subcuta neous fat. Increased vascularity at the margins of the lesion may be inflammatory. No invasive feat ures. IMPRESSION: Solid appearing nodule located in the subcutaneous fat upper right thigh. Excision should be conside red. DATA REPOSITORY:
== END ==
LOC: DI 00:57
PROVIDERS: PCP Student in an Organized Health Care Education/Training Program; Visit Provider Physical Therapy Assistant
DX: M79.89 Other specified soft tissue disorders (principal); R22.41 Localized swelling, mass and lump, right lower limb; E04.1 Nontoxic single thyroid nodule
CPT/HCPCS: 76881

== ENCOUNTER → 2023-10-31 00:57 | Outpatient (CLI) | payer OTHER, MEDICAID, SELFPAY ==
--- NOTE | 2023-10-31 07:00 | DI.US_ITS ---
Exam(s) US THYROID EXAM: US THYROID CLINICAL HISTORY: assess for change, nontoxic multinodular thyroid, E04.2. TECHNIQUE: Ultrasound thyroid performed using standard protocol. COMPARISON: US THYROID ULTRASOUND from 10/12/2016 US US thyroid from 03/22/2018 US US THYROID from 08/15/2019 US US THYROID from 05/23/2021 US US NEEDLE LOCAL OTHER WO RAD from 02/21/2022 US US THYROID from 09/07/2022 FINDINGS: ISTHMUS: 3 mm RIGHT LOBE: Size: 4.3 x 1.2 x 1.3 cm Echogenicity: Normal. Vascularity: Normal. Nodules: 7 millimeter cyst mid to lower pole. Lesion was previously noted to contain some solid-appe aring components or debris that are no longer present. Solid nodule lower pole measuring 1.1 x 1.0 x 1.0 cm, mildly hypoechoic, smoothly marginated, wire th an tall without echogenic foci. Stable size over time. TR 3. LEFT LOBE: Size: 3.8 x 1.3 x 1.4 cm Echogenicity: Normal. Vascularity: Normal. Nodules: None. OTHER FINDINGS: None. IMPRESSION: Stable size of solid nodule lower pole right lobe. DATA REPOSITORY:
== END ==
PROVIDERS: PCP Student in an Organized Health Care Education/Training Program; Visit Provider Otolaryngology
DX: E04.2 Nontoxic multinodular goiter (principal); L02.415 Cutaneous abscess of right lower limb
CPT/HCPCS: 76536

== ENCOUNTER 2023-12-17 13:47 | Outpatient (REF) | payer OTHER, MEDICAID, SELFPAY ==
--- NOTE | 2023-12-17 14:48 | SKI_PTH ---
PATIENT: Divya Lucas LOC: [facility] U#:[id number] AGE/SX: 73/F ROOM: RE12/17/[address]: LASHAWN Donnelly : 1950 BED: DIS: 12/17/2023 SPEC #: [id number] RECD: 12/17/23 17:38 STATUS: RAZIA REQ #: [id number] PAULINE: 12/17/23 14:[address]: Genevieve Tate DEPT: Surgical Specimen RECD BY: Lea Phelps ENTERED: 12/17/23 17:39 SP TYPE: ASHLY DEL CID DR: Yadira Nunez DO Tissues: 1 - SKIN BIOPSY(SHAVE/PUNCH) Procedures: SKIN LEVEL 4 Comments: [id number]
== END 2023-12-17 13:48 | disposition home or self-care (01) ==
LOC: LBN 13:47
PROVIDERS: PCP Student in an Organized Health Care Education/Training Program; Referring Provider Student in an Organized Health Care Education/Training Program; Visit Provider Physical Therapy Assistant
DX: L98.9 Disorder of the skin and subcutaneous tissue, unspecified (principal); Z87.2 Personal history of diseases of the skin and subcutaneous tissue; Z98.890 Other specified postprocedural states
CPT/HCPCS: 88305

== ENCOUNTER → 2023-12-17 13:47 | Outpatient (BNVA) | payer OTHER, MEDICAID, SELFPAY | PROVIDERS: PCP Student in an Organized Health Care Education/Training Program; Referring Provider Student in an Organized Health Care Education/Training Program; Visit Provider Physical Therapy Assistant | DX: D23.9 Other benign neoplasm of skin, unspecified (principal); Z87.2 Personal history of diseases of the skin and subcutaneous tissue; Z98.890 Other specified postprocedural states | CPT/HCPCS: 11404 ==

== ENCOUNTER → 2023-12-31 08:58 | Outpatient (BNVA) | payer OTHER, MEDICAID, SELFPAY | PROVIDERS: PCP Student in an Organized Health Care Education/Training Program; Referring Provider Student in an Organized Health Care Education/Training Program; Visit Provider Physical Therapy Assistant | DX: Z48.817 Encounter for surgical aftercare following surgery on the skin and subcutaneous tissue (principal); Z48.02 Encounter for removal of sutures ==

== ENCOUNTER 2024-03-06 01:43 | Outpatient (CLI) | payer OTHER, MEDICAID, SELFPAY ==
--- NOTE | 2024-03-06 12:30 | DI.US_ITS ---
APPROVED REPORT EXAM: Comprehensive 2D, Doppler, and color-flow Echocardiogram Patient Location: Out-Patient Fleet Administrator: Mariam Davis RDCS (AE) Indications: Chest pain Other Information Study Quality: Fair. Technically limited study due to body habitus. Conclusion Normal left ventricular wall thickness and chamber size. Ejection fraction is 55 to 60%. Wall motio n is normal Normal right ventricular size and function Both atria are normal in size There is no structural or hemodynamically significant valvular disease Wall motion Left Ventricle The left ventricle is normal size. The left ventricular systolic function is normal. The left ventric ular ejection fraction is within the normal range. There is normal left ventricular wall thickness. T here is normal LV segmental wall motion. There is no ventricular septal defect visualized. LVEF is 55 %. Right Ventricle The right ventricle is normal size. The right ventricular systolic function is normal. Atria The left atrium size is normal. The right atrium size is normal. The interatrial septum is intact wit h no evidence for an atrial septal defect. Aortic Valve The aortic valve is normal in structure. Aortic valve is trileaflet. There is no aortic valvular sten osis. No aortic regurgitation is present. Mitral Valve The mitral valve is normal in structure. No evidence of mitral valve stenosis. Trace mitral regurgita tion. Tricuspid Valve The tricuspid valve is normal in structure. There is no tricuspid valve stenosis. Trace tricuspid reg urgitation. Unable to assess PA pressure. Pulmonic Valve The pulmonary valve is normal in structure. There is no pulmonic valvular stenosis. Trace pulmonic re gurgitation. Great Vessels The aortic root is normal in size. The ascending aorta is normal in size. Aortic arch is not well vis ualized. IVC is normal in size and collapses >50% with inspiration. Pericardium There is no pericardial effusion. 2D Dimensions IVSD d PLAX 0.90 cm F: 0.6-1.0 Ao Root d 2.86 cm F: 2.7 - 3.3 LVPW d PLAX 0.90 cm F: 0.6 - 1.0 Ao Asc Diam d 3.03 cm F: 2.3 - 3.1 LVID d PLAX 4.00 cm F: 3.8 - 5.2 LVDs 2.84 cm F: 2.2 - 3.5 LV EF Teichholz 55.2 % FS 28.28 % LV EDV (Teich) 68.6 mL LV ESV (Teich) 30.7 mL Auto EF LV EDV A4C 67.3 mL LV EDV A2C 66.7 mL LV EDV BP 67.8 mL LV ESV A4C 30.4 mL LV ESV A2C 30.0 mL LV ESV BP 29.9 mL LVEF(%) A4C 54.8 % LVEF(%) A2C 55.0 % LVEF(%) BP 55.9 % LV SV A4C 36.9 ml LV SV A2C 36.7 ml LV SV BP 37.9 ml LV CO A4C 2.0 L/min LV CO A2C 2.0 L/min LV CO BP 2.0 L/min HR A4C 55.47 BPM HR A2C 54.53 BPM LV EDV Index (BP) LA Volume LA Length A4C 4.1 cm LA Length A2C 4.9 cm LA Area A4C s 9.66 cm2 LA Area A2C s 15.09 cm2 LA Vol A4C A-L 19.44 mL LA Vol A2C A-L 39.43 mL LA Vol Biplane A-L 30.4 mL LA Vol/BSA A4C A-L LA Vol/BSA A2C A-L LA Vol/BSA BP A-L 18.2 mL/m2 LA Vol A4C MOD 17.8 mL LA Vol A2C MOD 37.3 mL LA Vol BP MOD 28.2 mL RA Volume RA Area A4C 6.6 cm2 RA ESV A4C (A-L) 10.4mL RA Vol/BSA A4C A-L RA Length A4C 3.6 cm RA ESV A4C (MOD) 9.7mL LV Diastology MV E' medial 0.062 (>0.07 m/s) MV E Vmax 0.78 (0.4-1.3 m/s) MV E/E' MED 12.75 (<14) MV A Vmax 0.55 (0.4-1.3 m/s) MV E' lateral 0.097 (>0.1 m/s) E/A Ratio 1.4 MV E/E' LAT 8.07 (<14) MV E' Average 0.079 m/s MV E/E'(average) 9.88 Aortic Valve AoV Vmax 0.91 m/s LVOT Vmax 0.76 m/s AoV Peak Grad 3.3 mmHg LVOT Peak Grad 2.3 mmHg AoV Area (Vmax) 2.36 cm2 LVOT VTI 0.171 m AoV VTI 0.243 m LVOT Mean Grad 1.0 mmHg AoV Mean Sonu. 0.64 m/s LVOT SV 48.83 mL AoV Mean Grad 1.9 mmHg LVOT Diam s 1.90 cm AoV Area (VTI) 2.01 cm2 AV Regurg Peak Gr. 3.34 mmHg Velocity Ratio 0.84 Mitral Valve MV DT 122 (160-240 msec) MV Vmax TIPS 0.77 m/s MV Mean Grad 0.9 (<2mmHg) MV VTI 0.293 m Pulmonary Valve PV Vmax 0.80 (0.5-1.5 m/s) RVOT Vmax 0.60 m/s PV Peak Grad 2.5 mmHg RVOT Peak Gr. 1.4 mmHg PV Mean Sonu 0.56 m/s RVOT VTI 0.161 m PV Mean Grad 1.4 mmHg RVOT Mean Gr. 0.9 mmHg Tricuspid Valve RA Pressure 3.00 mmHg TV S' 0.09 m/s
== END 2024-03-06 02:03 ==
LOC: DI 01:43
PROVIDERS: PCP Student in an Organized Health Care Education/Training Program; Visit Provider Internal Medicine Cardiovascular Disease
DX: R07.9 Chest pain, unspecified (principal)
CPT/HCPCS: 93306

== ENCOUNTER 2024-03-11 14:44 | Outpatient (CLI) | payer OTHER, MEDICAID, SELFPAY ==
--- NOTE | 2024-03-11 09:45 | DI.RAD_ITS ---
Exam(s) XR HAND LT LIMITED XR HAND RT LIMITED EXAM: XR HAND RT LIMITED CLINICAL HISTORY: pain triggering. TECHNIQUE: 2D digital imaging was performed. Three views of both hands. COMPARISON: CR XR HAND LT LIMITED from 03/11/2024 FINDINGS: BONES: No acute fracture is present. No bony destructive lesion is seen. JOINTS: No dislocation present. There is flexion at the proximal interphalangeal joints of the ring f ingers bilaterally. There are mild degenerative changes of the interphalangeal joints and 1st carpal metacarpal joints. Mild degenerative changes at the 1st metacarpophalangeal joints bilaterally. SOFT TISSUE: Normal. IMPRESSION: Bilateral trigger fingers of the 4th digits. Mild bilateral degenerative changes. DATA REPOSITORY: RADIATION DOSE DELIVERED:
== END 2024-03-11 14:45 | disposition home or self-care (01) ==
LOC: DIORS 14:45
PROVIDERS: PCP Student in an Organized Health Care Education/Training Program; Referring Provider Student in an Organized Health Care Education/Training Program; Visit Provider Student in an Organized Health Care Education/Training Program
DX: M79.643 Pain in unspecified hand (principal); M66.241 Spontaneous rupture of extensor tendons, right hand; M66.242 Spontaneous rupture of extensor tendons, left hand
CPT/HCPCS: 99214; 73120

== ENCOUNTER 2025-01-31 21:22 | Inpatient (IN) | payer MEDICARE, MEDICAID, SELFPAY ==
[2025-01-31] VITALS (22 sets, daily range): BP systolic 97–181; BP diastolic 41–163; PULSE 86–105; RESP 17–24; TEMP 36.2; O2SAT 89–96
--- NOTE | 2025-01-31 21:15 | RT.EKG_ITS ---
APPROVED REPORT Exam: Resting ECG Reason for Exam: fall/altered mental status Patient Location: E HR:134 bpm ECG Measurements Heart Rate 134 AXIS [place] [id number] P [id number] QRSd 89 QRS 47 QT 368 T 39 QTc 550 Conclusion Incomplete analysis due to missing data in precordial lead(s) Atrial flutter...A-rate 256 Ventricular bigeminy...bigeminy string>4 w/ V complexes Anterior infarct, age indeterminate...Q >35mS, T neg, in V2-V5 Prolonged QT interval...QTc >500mS
--- NOTE | 2025-01-31 21:30 | DI.CT_ITS ---
Exam(s) CT HEAD CERVICAL SPINE WO EXAM: CT HEAD CERVICAL SPINE WO CLINICAL HISTORY: Trauma. TECHNIQUE: Imaging Protocol: Axial computed tomography images with coronal and sagittal reformatted images were created and reviewed COMPARISON: CT CT HEAD WO from 10/10/2021 FINDINGS: BRAIN: There are no skull fractures nor fluid in the visualized paranasal sinuses. Benign hyperostosis frontalis interna incidentally noted. No evidence of intracranial hemorrhage. In addition to unchanged prominent bilateral periventricular hypodensity from chronic small-vessel disease there is also now a significant area of abnormal hypodensity in the right temporoparietal region with sulcal effacement and some mass effect upon the atrium of the right lateral ventricle. This is probably an involving infarct in the territory of the right middle cerebral artery. There is relative sparing of the occipital lobe. CERVICAL SPINE: There is no evidence of fracture nor listhesis. No significant prevertebral soft tissue swelling. There is disc space narrowing through out the entire cervical spine with the exception of preserved disc height at C2-3 level. There are only mild degenerative changes in the facet joints. There is no significant facet joint malalignment. No significant osseous lesions evident. No cervical ribs. IMPRESSION: Prominent abnormal area of hypodensity in territory of the right middle cerebral artery involving the right temporoparietal region. Suspicious for acute infarctthe territory of the right middle cerebral artery. CT angiography recommended. Also MRI. No evidence of intracranial hemorrhage. No evidence of cervical spine fracture, malalignment, nor acute compromise of the cervical spinal canal. Chronic multilevel degenerative disc disease. Preliminary V rad report was reviewed. RADIATION DOSE DELIVERED: 1,251.84mGy.cm Total DLP DATA REPOSITORY: All CT scans at this facility are submitted to the National Radiology Data Registry (NRDR) Dose Index Registry (DIR) with the [employer] (ACR). RADIATION OPTIMIZATION: All CT scans at this facility use at least one of these dose optimization techniques: automated exposure control; mA and/or kV adjustment per patient size (includes targeted exams where dose is matched to clinical indication); or iterative reconstruction.
--- NOTE | 2025-01-31 21:30 | DI.RAD_ITS ---
Exam(s) XR FOOT RT COMPLETE EXAM: XR FOOT RT COMPLETE CLINICAL HISTORY: trauma. TECHNIQUE: 2D digital imaging was performed. COMPARISON: No exams were available for comparison FINDINGS: 3 views On the oblique view there is a subtle suggestion of a nondisplaced fracture on the lateral aspect of the base of the proximal phalanx of the 5th toe. Less evident on the other images. Lisfranc joint and other articulations appear unremarkable. No radiopaque foreign bodies. IMPRESSION: Possible subtle nondisplaced fracture proximal phalanx of the 5th toe. Recommend correlation with site of tenderness. Preliminary V rad report was reviewed DATA REPOSITORY: RADIATION DOSE DELIVERED:
--- NOTE | 2025-01-31 21:45 | DI.CT_ITS ---
Exam(s) CT CHEST/ABD/PEL WO EXAM: CT CHEST/ABD/PEL WO CLINICAL HISTORY: trauma. TECHNIQUE: Imaging Protocol: Axial computed tomography images with coronal and sagittal reformatted images were created and reviewed CONTRAST MATERIAL: Intravenous: none Oral: None COMPARISON: CT CT CHEST WO from 07/09/2020 FINDINGS: CHEST: LUNGS: There is a large pleural based infiltrate in the posterior segment of the right upper lobe which measures 4 by 3.6 by 2.2 cm. There is no overlying rib destruction. A similar but smaller pleural based infiltrate is noted in the left lower lobe measuring 2.2 by 1.5 by 2.5 cm, also not associated with overlying rib destruction. There are other areas of infiltrate in the lung villar including some ground-glass infiltrate in the anterior segment of the right upper lobe and nodular infiltrates evident in the apical posterior segment of the left upper lobe and superior segment of the left lower lobe. There are no pleural effusions. No findings in trachea and mainstem bronchi. Thin walled bulla in the posterior basal segment of the right lower lobe noted. This does not contain a fluid level. MEDIASTINUM: No obvious hilar adenopathy, realizing limitations of a non few study. There does appear to be some subcarinal adenopathy. There is no adenopathy in the anterior mediastinal fat. Visualized thyroid unremarkable. CARDIAC: Heart size is normal. There is no pericardial effusion.Caliber of the thoracic aorta is within normal limits. OSSEOUS: No significant osseous lesions.No fractures.. ABDOMEN: There is no ascites. No evidence of bowel wall nor mesenteric hematoma. LIVER: Abnormal area of hypodensity in the right hepatic lobe noted extending from gallbladder fossa towards the capsule, difficult to assess without IV contrast but in the setting of trauma may represent an hepatic laceration there is no subcapsular collection and there is no adjacent free fluid. This finding was not evident on CT scan of 2020. Small hypodensity in the left hepatic lobe incidentally noted which is probably a cyst or hemangioma. GALLBLADDER/BILIARY: No obvious gallbladder pathology. CBD is not dilated. PANCREAS: No evidence of obvious pancreatic mass nor dilatation of the pancreatic duct. SPLEEN: Intact. Normal size. No lacerations. No lesions. ADRENALS: There are no significant adrenal masses. KIDNEYS: No evidence of renal lacerations nor subcapsular hematomas. No focal findings in the right kidney. Small 2-3 millimeter nonobstructive calculus noted in the lower pole calyx of the left kidney. There are no calculi seen in the nondilated ureters nor within the urinary bladder lumen.. No solid renal masses. ABDOMINAL AORTA: Abdominal aorta is not enlarged. LYMPH NODES: There is no retroperitoneal nor para-aortic adenopathy. ABDOMINAL WALL/GI: No evidence of significant anterior abdominal wall nor inguinal hernia. No evidence of bowel obstruction. PELVIS: LYMPH NODES: There is no intrapelvic nor inguinal adenopathy. GI: No evidence of appendicitis.There is sigmoid diverticuli but no evidence of acute diverticulitis. URINARY BLADDER: No calculi nor obvious masses evident REPRODUCTIVE: Uterus is surgically absent. There are no adnexal masses nor free fluid in the pelvis. OSSEOUS: No significant osseous lesions. IMPRESSION: 1. There are 2 prominent pleural base infiltrates, 1 in the right upper lobe and the other in the left lower lobe with measurements as above. Although these may be infectious, cannot exclude neoplasm. There does not appear to be overlying rib destruction at these levels and there are no pleural effusions. In addition, there are other areas of less prominent infiltrate in both lung villar. There is also subcarinal adenopathy evident. 2. Prominent abnormal area of hypodensity in the inferior aspect of the right hepatic lobe which may represent a significant liver laceration given the trauma history here. There is no subcapsular hematoma nor fluid around the liver. This finding was not evident on prior CT scan 07/09/2020. Specificity here is difficult without IV contrast injection. 3. No evidence of trauma sequelae in the spleen and kidneys and other abdomen- pelvic organs. 4. No fractures evident. There is a tiny non-obstructing calculus in the lower pole left kidney. No other renal findings. Preliminary V rad report was reviewed. RADIATION DOSE DELIVERED: 758.14mGy.cm Total DLP DATA REPOSITORY: All CT scans at this facility are submitted to the National Radiology Data Registry (NRDR) Dose Index Registry (DIR) with the [employer] ([employer]). RADIATION OPTIMIZATION: All CT scans at this facility use at least one of these dose optimization techniques: automated exposure control; mA and/or kV adjustment per patient size (includes targeted exams where dose is matched to clinical indication); or iterative reconstruction.
--- NOTE | 2025-01-31 21:48 | DI.CT_ITS ---
Exam(s) CT THORACIC LUMBAR SPINE REC EXAM: CT THORACIC LUMBAR SPINE REC CLINICAL HISTORY: trauma TECHNIQUE: COMPARISON: CT ABD PELVIS WO CONTRAST from 09/28/2011 FINDINGS: THORACIC SPINAL COLUMN: No evidence of fracture or listhesis. For no facet malalignment. No canal compromise. No scoliosis. No significant osseous lesions. LUMBOSACRAL SPINAL COLUMN: No evidence of fracture or listhesis nor pars defects. There is significant asymmetric narrowing of the right-side of the L4- 5 disc space. This results in mild-moderate right-sided foraminal stenosis at the L4-5 level. The other disc spaces exhibit normal height. There is annular bulging at L4-5 and L5-S1 levels with mild canal stenosis at these levels. There is asymmetric facet arthropathy on the right side at L5-S1 level. IMPRESSION: No fractures in the thoracic and lumbosacral spinal columns. L4-5 findings as above.
[2025-01-31 21:50] LABS: Abs Immature Grans 0.07 10^3/uL (0.0-0.06); BE (Venous) -1 mmol/L (-2-3); HCO3 (Venous) 24 mmol/L (23-28); HCT 39.8 % (36.0-46.0); HGB 13.2 g/dL (11.2-15.7); Immature Grans % 0.4 %; MCH 30.0 pg (27.0-33.0); MCHC 33.2 % (32.0-36.0); MCV 91 fL (80-95); MPV 9.7 fL (8.0-11.0); O2 Sat (Venous) 77 %; Platelet Count 159 10^3/uL (130-400); RBC 4.40 10^6/uL (3.93-5.22); RDW 14.3 % (11.7-14.6); RDW-SD 47.5 fL; TCO2 (Venous) 22 mmol/L (24-29); WBC 16.24 10^3/uL (4.4-10.8); pCO2 (Venous) 41 mmHg (41-51); pO2 (Venous) 42 mmHg
[2025-01-31] MEDS: diphenhydrAMINE 50 MG/ML VIAL IVP (21:58)
[2025-01-31] MEDS: methylPREDNISolone SUCC 40 MG VIAL IVP (22:00)
[2025-01-31 22:05] LABS: INR 1.1 (0.9-1.1); PTT Activated 28.8 sec (20.6-30.2); Prothrombin Time 11.2 sec (9.1-11.1)
[2025-01-31 22:06] LABS: RBC Morphology Normal
[2025-01-31 22:08] LABS: ALT 30 U/L (14-59); AST 18 U/L (15-37); Albumin 3.2 g/dL (3.4-5.0); Alkaline Phosphatase 160 U/L (46-116); Anion Gap 10.2 mmol/L (3-11); BUN 17 mg/dL (7-18); Bilirubin, Total 0.6 mg/dL (0.2-1.0); CO2 24.8 mmol/L (21.0-32.0); Calcium 8.9 mg/dL (8.5-10.1); Chloride 103 mmol/L (98-107); Glucose 170 mg/dL (74-106); Potassium 4.4 mmol/L (3.5-5.1); Sodium 138 mmol/L (136-145); Total Protein 7.2 g/dL (6.4-8.2)
--- NOTE | 2025-01-31 22:30 | DI.CT_ITS ---
Exam(s) CT HEAD W EXAM: CT HEAD W CLINICAL HISTORY: COncern for mass/lesion. TECHNIQUE: Imaging Protocol: Contrast infused CT scans of the brain was. IV Contrast Dose =100 cc Omnipaque 350 Axial computed tomography images with coronal and sagittal reformatted images were created and reviewed COMPARISON: CT CT HEAD CERVICAL SPINE WO from 01/31/2025 FINDINGS: There are no skull fractures nor fluid in the visualized paranasal sinuses. Again noted is the abnormal area of hypodensity in the right temporoparietal region which is a territory of the right middle cerebral artery. There are no ring enhancing lesions in the brain nor obvious abnormal meningeal enhancement. The right middle cerebral artery appears patent There are no ring enhancing lesions in the brain and there is no abnormal meningeal enhancement, focal or diffuse. There does not appear to be occlusion of the right middle cerebral artery on this non arthrogram study IMPRESSION: Abnormal hypodensity and sulcal effacement within the right temporoparietal region consistent with evolving infarct. There are no ring enhancing lesions in this region or elsewhere in the brain.Follow-up MRI with diffusion imaging recommended. Also recommend CT angiography Preliminary V rad report was reviewed. Report called to ICU 02/01/2025 at 4:20 p.m. RADIATION DOSE DELIVERED: 933.32mGy.cm Total DLP DATA REPOSITORY: All CT scans at this facility are submitted to the National Radiology Data Registry (NRDR) Dose Index Registry (DIR) with the [employer] ([employer]). RADIATION OPTIMIZATION: All CT scans at this facility use at least one of these dose optimization techniques: automated exposure control; mA and/or kV adjustment per patient size (includes targeted exams where dose is matched to clinical indication); or iterative reconstruction.
--- NOTE | 2025-01-31 22:41 | DI.VRAD_ITS ---
Addendum created by Trey Andrade MD on 01/31/2025 10:42:48 PM EDT: COMMENT: THIS REPORT CONTAINS FINDINGS THAT MAY BE CRITICAL TO PATIENT CARE. The exam findings were verbally communicated by me to Nitin Blackburn via telephone conference at 10:42 PM EDT on 01/31/2025. The findings were acknowledged and understood. Initial report created on 01/31/2025 10:41:00 PM EDT: PROCEDURE INFORMATION: Exam: CT Head Without Contrast Exam date and time: 01/31/2025 10:12 PM Age: 74 years old Clinical indication: Injury or trauma; Fall; Blunt trauma (contusions or hematomas) TECHNIQUE: Imaging protocol: Computed tomography of the head without contrast. COMPARISON: CT HEAD WO 10/10/2021 7:21 AM FINDINGS: Brain: A large area of edema is identified in the right temporal lobe which has the appearance of the cytotoxic edema with a an underlying mass not completely excluded. Follow-up with contrast-enhanced CT scan or MRI examination is recommended. Chronic periventricular small-vessel ischemic changes. Cerebral atrophy. Cerebral ventricles: Mild mass effect on the occipital horn of the right lateral ventricle but no midline shift. Paranasal sinuses: Visualized sinuses are unremarkable. No fluid levels. Mastoid air cells: Visualized mastoid air cells are well aerated. Bones: No fracture. Soft tissues: Unremarkable. Other findings: No acute hemorrhage. IMPRESSION: 1. Findings suspicious for cytotoxic edema in the right temporal lobe with a an underlying mass not excluded. Evolving infarct is also in the differential. Follow-up with contrast-enhanced CT scan and/or MRI examination is recommended. 2. Chronic periventricular small-vessel ischemic changes. PROCEDURE INFORMATION: Exam: CT Cervical Spine Without Contrast Exam date and time: 01/31/2025 10:12 PM Age: 74 years old Clinical indication: Injury or trauma; Fall; Blunt trauma (contusions or hematomas) TECHNIQUE: Imaging protocol: Computed tomography of the cervical spine without contrast. COMPARISON: US THYROID 10/31/2023 8:32 AM FINDINGS: Bones: Normal alignment of the cervical vertebral bodies and discs. No acute fracture. Osteoarthritic changes identified at several levels including the C3-C4, C4-C5, C5-C6 and C6-C7 levels. No evidence for spondylolysis or spondylolisthesis. [id number] spinal stenosis identified at C5-C6 secondary to central disc osteophyte complex, facet arthropathy and posterior ligamentous hypertrophy. Neural foraminal narrowing identified at several levels secondary to uncovertebral joint and facet joint arthropathy. Lungs: Lung apices are normal. Soft tissues: Unremarkable. IMPRESSION: 1. No acute fracture. 2. Osteoarthritic changes as detailed above with a moderate spinal stenosis at C5-C6. Dictated and Authenticated by: Trey Andrade MD. Orderin Alexey Taveras MD
--- NOTE | 2025-01-31 22:46 | DI.VRAD_ITS ---
Addendum created by Vandana Mckinnon MD on 01/31/2025 11:20:10 PM EDT: These findings were discussed with the referring clinician. Of note, the patient has a history of gastric adenocarcinoma with recent intracranial metastases diagnosed. In light of these findings, differential considerations for the hepatic hypodensities suggest hepatic metastases. Additionally, the patient's mechanism of injury makes hepatic laceration unlikely. THIS REPORT CONTAINS FINDINGS THAT MAY BE CRITICAL TO PATIENT CARE. The findings were verbally communicated via telephone conference with Nitin Blackburn at 11:19 PM EDT on 01/31/2025. The findings were acknowledged and understood. Initial report created on 01/31/2025 10:46:20 PM EDT: PROCEDURE INFORMATION: Exam: CT Chest Without Contrast; Diagnostic Exam date and time: 01/31/2025 10:16 PM Age: 74 years old Clinical indication: Injury or trauma; Fall; Generalized; Blunt trauma (contusions or hematomas) TECHNIQUE: Imaging protocol: Diagnostic computed tomography of the chest without contrast. COMPARISON: CT CHEST WO 09/07/2023 8:39 AM FINDINGS: Lungs: Dense consolidative radiopacities are present within the lateral aspect of the right upper lobe. Scattered patchy airspace opacities are present within the bilateral upper lobes. There is likely rounded atelectasis at the left lung base. Pleural spaces: Unremarkable. No pneumothorax. No pleural effusion. Heart: Heart is normal size. No pericardial effusion. Coronary arteries: There are scattered atheromatous coronary artery calcifications. Lymph nodes: There is a 1.2 cm in diameter pretracheal node and a 1.3 cm in diameter subcarinal node. Vasculature: Atheromatous calcifications are present within the visualized thoracic aorta. Bones/joints: Bones have a normal appearance. No acute fracture or suspicious bone lesion. Soft tissues: Unremarkable. IMPRESSION: 1. Findings suspicious for multifocal pneumonia. However, short interval follow-up is recommended to exclude underlying pulmonary neoplasm. 2. Mediastinal adenopathy. Differential considerations include both infectious and neoplastic etiologies. PROCEDURE INFORMATION: Exam: CT Abdomen And Pelvis Without Contrast Exam date and time: 01/31/2025 10:16 PM Age: 74 years old Clinical indication: Injury or trauma; Fall; Generalized; Blunt trauma (contusions or hematomas) TECHNIQUE: Imaging protocol: Computed tomography of the abdomen and pelvis without contrast. COMPARISON: CT CHEST WO 09/07/2023 8:39 AM FINDINGS: Diaphragm: There is a small hiatal hernia. Liver: The liver is normal in size. A hypodensity is present at the right hepatic dome which may represent a hepatic cyst but is incompletely characterized. There is a hypodense 5.2 x 1.9 cm coronally oriented lesion within the inferior right hepatic margin (series 2/image 70 and series 4/image 38) pancreas. Gallbladder and biliary ducts: The gallbladder is unremarkable. No biliary ductal dilatation. Pancreas: Normal. No ductal dilation. Spleen: The spleen demonstrates normal size. Adrenal glands: The adrenal glands have a normal appearance. Kidneys and ureters: The kidneys are normal in size. A punctate nonobstructing calculus is visualized within the left kidney. No hydronephrosis. No hydroureter or ureterolithiasis. Stomach and bowel: The bowel demonstrates overall normal caliber and wall thickness. There are scattered diverticular outpouchings throughout the colon. No mucosal thickening or pericolonic fat stranding. Appendix: The appendix is not visualized and clips are noted in the region of the cecum suggesting prior appendectomy. Intraperitoneal space: There is no associated perihepatic fluid. Vasculature: There are scattered atheromatous calcifications throughout the aorta and iliac arteries. Lymph nodes: No enlarged lymph nodes. Urinary bladder: The bladder is thin walled and fluid filled. Reproductive: The uterus is not visualized and may be surgically absent. Bones/joints: Bones have a normal appearance. No acute fracture or suspicious bone lesion. Soft tissues: Unremarkable. IMPRESSION: 1. Irregularly marginated hypodense lesion within the inferior margin of the right hepatic lobe. Although there is no perihepatic free fluid to suggest extravasation, a liver laceration could cause this appearance. In the absence of contrast, acute liver injury can not be excluded. No prior studies are available to determine the acuity of this finding. A hepatic hemangioma or hepatic cyst could also be considered in the differential. 2. No other acute intra-abdominal findings. 3. Nonobstructing nephrolithiasis. Dictated and Authenticated by: Vandana Mckinnon MD. Orderin Alexey Taveras MD
--- NOTE | 2025-01-31 22:49 | DI.VRAD_ITS ---
PROCEDURE INFORMATION: Exam: CT Thoracic Spine Without Contrast Exam date and time: 01/31/2025 10:16 PM Age: 74 years old Clinical indication: Injury or trauma; Fall; Blunt trauma (contusions or hematomas); Trauma, TECHNIQUE: Imaging protocol: Computed tomography of the thoracic spine without contrast. COMPARISON: CT HEAD CERVICAL SPINE WO 01/31/2025 10:12 PM FINDINGS: Bones/joints: No acute fracture. Normal alignment. No significant disc bulge or herniation. No severe spinal canal stenosis. No significant neural foraminal narrowing. Soft tissues: Unremarkable. IMPRESSION: No acute thoracic spine fracture. PROCEDURE INFORMATION: Exam: CT Lumbar Spine Without Contrast Exam date and time: 01/31/2025 10:16 PM Age: 74 years old Clinical indication: Injury or trauma; Fall; Blunt trauma (contusions or hematomas); Trauma, TECHNIQUE: Imaging protocol: Computed tomography of the lumbar spine without contrast. COMPARISON: CT CHEST/ABD/PEL WO 01/31/2025 10:16 PM FINDINGS: Bones/joints: No acute fracture. Normal alignment. No significant disc bulge or herniation. No severe spinal canal stenosis. No significant neural foraminal narrowing. Soft tissues: Unremarkable. IMPRESSION: No acute lumbar spine fracture. Dictated and Authenticated by: Vandana Mckinnon MD. Orderin Alexey Taveras MD
--- NOTE | 2025-01-31 22:50 | DI.VRAD_ITS ---
PROCEDURE INFORMATION: Exam: XR Right Foot Exam date and time: 01/31/2025 10:33 PM Age: 74 years old Clinical indication: Injury or trauma; Fall; Blunt trauma; Foot; Right TECHNIQUE: Imaging protocol: Radiologic exam of the right foot. Views: 3 or more views. COMPARISON: CR XR ANKLE RT COMPLETE 02/02/2020 8:32 AM FINDINGS: Bones/joints: There is likely a minimally displaced intra-articular fracture at the base of the proximal right 5th phalanx. No other acute fracture or dislocation. Soft tissues: Unremarkable. IMPRESSION: Findings suspicious for minimally displaced right proximal 5th phalangeal fracture as above. Please correlate with focal tenderness. Dictated and Authenticated by: Vandana Mckinnon MD. Orderin Alexey Taveras MD
[2025-01-31] MEDS: Normal Saline - Diluent 50 ML VIAL IJ (22:54)
[2025-01-31] MEDS: Omnipaque 350 MG/ML 100 ML BTL IJ (22:54)
--- NOTE | 2025-01-31 22:56 | W.ED.GENAD ---
Discharge Plan Discharge Details Chief Complaint: AMS/LOC Clinical Impression: CVA (cerebral vascular accident), Closed fracture of fifth toe of right foot, Leukocytosis, Acute UTI Primary Care Provider: Jeremi Rowley ED Provider: Nitin Blackburn Home Meds and New Rx's Prescriptions: No Action melatonin 10 mg capsule 20 mg PO HS PRN (Reason: sleep) (DME) nebulizer See Rx Instructions .Route .MEDSUPPLY Qty: 1 0RF Rx Instructions: As directed ipratropium-albuterol 0.5 mg-3 mg(2.5 mg base)/3 mL solution for nebulization See Rx Instructions .ROUTE .COMPLEX Qty: 90 1RF Dose Instruction: INHALE 3ML VIA NEBULIZER EVERY 6 HOURS NEEDED FOR WHEEZING Rx Instructions: INHALE 3ML VIA NEBULIZER EVERY 6 HOURS NEEDED FOR WHEEZING nystatin 100,000 unit/gram ointment 1 applic topical TID Qty: 30 1RF Rx Instructions: Continue for skin fold rash epinephrine [EpiPen 2-Devin] 0.3 mg/0.3 mL auto-injector 0.3 mg IM ONCE Qty: 2 1RF insulin glargine [Basaglar KwikPen U-100 Insulin] 100 unit/mL (3 mL) insulin pen 12 unit subcut QPM Qty: 15 1RF Rx Instructions: Start low-dose insulin (DME) Dexcom G7 [facility] See Rx Instructions .Route Qty: 1 0RF Rx Instructions: As directed, to keep HbA1c less than 6.5% (DME) Dexcom G7 Sensor Device See Rx Instructions .Route Qty: 1 12RF Rx Instructions: As directed, to keep HbA1c less than 6.5% albuterol sulfate [ProAir HFA] 90 mcg/actuation HFA aerosol inhaler 1 - 2 puff Inhalation Q4-6H PRN Qty: 1 3RF Rx Instructions: DISPENSE ALBUTEROL INHALER BRAND WITH SPACER COVERED BY INSURANCE ([facility]ructions .ROUTE .MEDSUPPLY Qty: 100 3RF Rx Instructions: As directed to check blood glucose daily. No insulin. Dispense covered brand. (DME) Caps - intolerant of wigs See Rx Instructions .Route .MEDSUPPLY Qty: 2 0RF Rx Instructions: Provide head covering instead of wigs magnesium oxide 400 mg magnesium capsule 400 mg PO DAILY triamcinolone acetonide 0.1 % cream 1 applic topical DAILY Nurtec ODT 75 mg tablet,disintegrating 75 mg PO ONCE PRN (Reason: migraine headache) Qty: 30 0RF Rx Instructions: as a single dose simethicone [Gas Relief (simethicone)] 125 mg capsule 125 mg PO BID-QID PRN (Reason: LUQ Discomfort; abdominal distention) Qty: 60 0RF artifi.tears(hypromellose)(PF) 1.7 % drops with applicator 1 drp ophthalmic (eye) 4-8XD PRN (Reason: dry eye(s)) Qty: 12 6RF paroxetine HCl 40 mg tablet 40 mg PO DAILY Qty: 90 0RF bupropion HCl 300 mg tablet extended release 24 hr See Rx Instructions .ROUTE .COMPLEX Qty: 90 1RF Dose Instruction: TAKE 1 TABLET BY MOUTH EVERY MORNING Rx Instructions: TAKE 1 TABLET BY MOUTH EVERY MORNING hydroxyzine HCl 10 mg tablet See Rx Instructions .ROUTE .COMPLEX Qty: 120 5RF Dose Instruction: TAKE 1 TABLET BY MOUTH FOUR TIMES A DAY NEEDED FOR ANXIETY Rx Instructions: TAKE 1 TABLET BY MOUTH FOUR TIMES A DAY NEEDED FOR ANXIETY (DME) POCKET CHAMBER Spacer See Rx Instructions .ROUTE .MEDSUPPLY Qty: 1 0RF Rx Instructions: As directed (DME) glucometer See Rx Instructions .Route .MEDSUPPLY Qty: 1 0RF Rx Instructions: ONE TOUCH VERIO per task, 08/2022 pen needle, diabetic [BD Ultra-Fine Itzel Pen Needle] 32 gauge x /32 needle See Rx Instructions miscellaneous .COMPLEX Qty: 100 3RF Rx Instructions: Use one pen needle daily with insulin injection DX: E11.9. Keep A1c below 7. (DME) OneTouch Verio test strips Strip See Rx Instructions .ROUTE .MEDSUPPLY Qty: 300 3RF Rx Instructions: TID Testing to keep A1C <8, Diabetes Mellitus pregabalin 75 mg capsule 75 mg PO HS Qty: 30 5RF levothyroxine 50 mcg tablet See Rx Instructions .ROUTE .COMPLEX Qty: 28 3RF Dose Instruction: TAKE 1 TABLET BY MOUTH DAILY Rx Instructions: TAKE 1 TABLET BY MOUTH DAILY metoprolol succinate 25 mg tablet extended release 24 hr 25 mg PO DAILY Qty: 90 1RF omeprazole 40 mg capsule,delayed release(DR/EC) 40 mg PO DAILY folic acid 1 MG tablet 1 mg PO DAILY Qty: 30 0RF HPI General Date/Time Provider Initiated Documentation: 01/31/25 21:23. HPI Narrative: MDM/Narrative: Initial Assessment: 74-year-old female with history of MS, prior lung adenocarcinoma in remission, recent diagnosis of esophageal and gastric adenocarcinoma, presents with altered mental status and injury from a fall. Differential Diagnosis: - Stroke: CT imaging shows abnormality in right parietotemporal lobe. Paucity of vessels in area. Discussed with neurosurgery. MRI recommended. - Metastatic disease: Possible but less likely. Requires MRI for further evaluation. - Infection: Considered due to altered mental status. Check for pneumonia, UTI. - Metabolic encephalopathy; will obtain screening labs - Traumatic injuries: CT gann scan and XR RIght foot. ED Course: - 09:20 PM: Patient arrived at ED. - CT imaging shows abnormality in right parietotemporal lobe. - CT head with IV contrast shows paucity of vessels in area. - Case discussed with [facility] neurosurgery, Dr. Poon. - 12:20 AM: Care signed out to Dr. Cohen. - Nitrite-positive urine found. - Levofloxacin started. Clinical Impression: - AMS - Injury from fall - Urinary tract infection -Subacute CVA Disposition: - Sign Out: Care signed out to Dr. Nunn. Follow-Up: Teleneurology consultation. This document was created with assistance from [employer]. The patient consented to its use. HPI: The patient is a 74-year-old female with a medical history significant for multiple sclerosis (MS) and lung adenocarcinoma currently in remission, recently diagnosed with esophageal and gastric carcinoma, presenting with altered mental status. The history is provided by both the patient and her family. The patient reports experiencing a fall today, during which she tripped and struck the occipital region of her head and her right foot. She denies any loss of consciousness, chest pain, or additional complaints. However, she does report cervicalgia and pain in her right foot. The family has observed atypical behavior and peculiar statements from the patient over the past few weeks. There have been no recent episodes of pyrexia, chills, nausea, vomiting, diarrhea, or other new symptoms. ROS: Negative besides as mentioned above Exam: Vital signs: Reviewed. General Appearance: Mild painful distress. HEENT: Normocephalic, atraumatic. Neck: Midline cervical spine tenderness. Respiratory: Breath sounds present bilaterally. Cardiovascular: Radial pulses 2+ bilaterally. Gastrointestinal: Abdomen soft, nontender. Back: No midline thoracic or lumbar step off or pain. Musculoskeletal: Hips stable without crepitus or pain. Moving all extremities, chronic contractures and increased tone on left side. Tenderness to right fifth metatarsal. Right foot mottled and cool. Skin: Warm and dry, no rash. Neurological: Alert and oriented to person and place. Follows commands. Psychiatric: Appropriate for situation. Rhythm: NSR Rate: 82 [place]: Normal axis Intervals: Normal intervals Other findings: No acute ST segment or T wave changes to suggest acute ischemia. Labs: 01/31/25 23:46 Blood Blood Culture - Pending 01/31/25 23:45 Blood Blood Culture - Pending 01/31/25 22:45 Urine - Reflex from Ua Urine Culture - Pending Laboratory Tests Range/Units 01/31/25 01/31/25 01/31/25 21:31 22:10 22:45 WBC (4.4-10.8) 10^3/uL 16.24 H RBC (3.93-5.22) 10^6/uL 4.40 Hgb (11.2-15.7) g/dL 13.2 Hct (36.0-46.0) % 39.8 MCV (80-95) fL 91 MCH (27.0-33.0) pg 30.0 MCHC (32.0-36.0) % 33.2 RDW (11.7-14.6) % 14.3 Plt Count (130-400) 10^3/uL 159 MPV (8.0-11.0) fL 9.7 Immature Gran % % 0.4 Neutrophils % % 78.1 Lymphocytes % % 9.8 Monocytes % % 10.7 Eosinophils % % 0.7 Basophils % % 0.3 Nucleated RBC % (0.0-0.3) % 0.0 Absolute Neutrophils (1.2-6.7) 10^3/uL 12.68 H Absolute Lymphocytes (1.2-3.4) 10^3/uL 1.59 Absolute Monocytes (0.1-0.8) 10^3/uL 1.74 H Absolute Eosinophils (0.0-0.7) 10^3/uL 0.11 Absolute Basophils (0.0-0.2) 10^3/uL 0.05 RBC Morphology Normal PT (9.1-11.1) sec 11.2 H INR (0.9-1.1) 1.1 APTT (20.6-30.2) sec 28.8 VBG pH (7.31-7.41) 7.38 VBG pCO2 (41-51) mmHg 41 VBG pO2 mmHg 42 VBG HCO3 (23-28) mmol/L 24 VBG Total CO2 (24-29) mmol/L 22 L VBG O2 Saturation % 77 VBG Base Excess (-2-3) mmol/L -1 VBG Lactate (<or=2.0) mmol/L 1.2 Sodium (136-145) mmol/L 138 Potassium (3.5-5.1) mmol/L 4.4 Chloride (98-107) mmol/L 103 Carbon Dioxide (21.0-32.0) mmol/L 24.8 Anion Gap (3-11) mmol/L 10.2 BUN (7-18) mg/dL 17 Creatinine (0.55-1.02) mg/dL 1.1 H Est GFR (CKD-EPI 2020) (mL/min/1.73m2) 53.39 Glucose (74-106) mg/dL 170 H Calcium (8.5-10.1) mg/dL 8.9 Total Bilirubin (0.2-1.0) mg/dL 0.6 AST (15-37) U/L 18 ALT (14-59) U/L 30 Alkaline Phosphatase (46-116) U/L 160 H Total Protein (6.4-8.2) g/dL 7.2 Albumin (3.4-5.0) g/dL 3.2 L Urine Color (Yellow) Yellow Urine Clarity (Clear) Sl Cloudy Urine pH (5-8) 7.0 Ur Specific [place] (1.005-1.025) 1.025 Urine Protein (Neg-Trace) mg/dL 100 H Urine Ketones (Negative) mg/dL Negative Urine Blood (Negative) Trace-intact H Urine Nitrite (Negative) Positive H Urine Bilirubin (Negative) Negative Urine Urobilinogen (Up to 0.2) mg/dL 0.2 Ur Leukocyte Esterase (Negative) Trace H Urine RBC (0-2) HPF 5-10 H Urine WBC (0-5) HPF 10-20 H Ur Epithelial Cells (Negative) HPF Few Urine Crystals (Negative) HPF Moderate Amorphous Urine Bacteria (Negative) HPF Few Urine Casts (Negative) LPF Negative Urine Mucus (Negative) Negative Ur Culture Indicated? Yes Urine Glucose (Negative) mg/dL Negative ABO/Rh A Negative Antibody Screen NEGATIVE Radiology: PROCEDURE INFORMATION: Exam: CT Thoracic Spine Without Contrast Exam date and time: 01/31/2025 10:16 PM Age: 74 years old Clinical indication: Injury or trauma; Fall; Blunt trauma (contusions or hematomas); Trauma, TECHNIQUE: Imaging protocol: Computed tomography of the thoracic spine without contrast. COMPARISON: CT HEAD CERVICAL SPINE WO 01/31/2025 10:12 PM FINDINGS: Bones/joints: No acute fracture. Normal alignment. No significant disc bulge or herniation. No severe spinal canal stenosis. No significant neural foraminal narrowing. Soft tissues: Unremarkable. IMPRESSION: No acute thoracic spine fracture. PROCEDURE INFORMATION: Exam: CT Lumbar Spine Without Contrast Exam date and time: 01/31/2025 10:16 PM Age: 74 years old Clinical indication: Injury or trauma; Fall; Blunt trauma (contusions or hematomas); Trauma, TECHNIQUE: Imaging protocol: Computed tomography of the lumbar spine without contrast. EULALIO GABRIEL Preliminary Radiology Report PERSONAL BANKING REPRESENTATIVE (QA) DISCREPANCY? If there is a discrepancy between the preliminary and final interpretation, please notify [facility] via [email or web address]. If you do not have access to our QA portal, call our QA team at [phone] CONFIDENTIALITY STATEMENT This report is intended only for the use of the referring physician, and only in accordance with law, If you received this in error, call [phone] Page 2 of 2 COMPARISON: CT CHEST/ABD/PEL WO 01/31/2025 10:16 PM FINDINGS: Bones/joints: No acute fracture. Normal alignment. No significant disc bulge or herniation. No severe spinal canal stenosis. No significant neural foraminal narrowing. Soft tissues: Unremarkable. IMPRESSION: No acute lumbar spine fracture. Thank you for allowing us to participate in the care of your patient. Dictated and Authenticated by: Vandana Mckinnon MD PROCEDURE INFORMATION: Exam: CT Thoracic Spine Without Contrast Exam date and time: 01/31/2025 10:16 PM Age: 74 years old Clinical indication: Injury or trauma; Fall; Blunt trauma (contusions or hematomas); Trauma, TECHNIQUE: Imaging protocol: Computed tomography of the thoracic spine without contrast. COMPARISON: CT HEAD CERVICAL SPINE WO 01/31/2025 10:12 PM FINDINGS: Bones/joints: No acute fracture. Normal alignment. No significant disc bulge or herniation. No severe spinal canal stenosis. No significant neural foraminal narrowing. Soft tissues: Unremarkable. IMPRESSION: No acute thoracic spine fracture. PROCEDURE INFORMATION: Exam: CT Lumbar Spine Without Contrast Exam date and time: 01/31/2025 10:16 PM Age: 74 years old Clinical indication: Injury or trauma; Fall; Blunt trauma (contusions or hematomas); Trauma, TECHNIQUE: Imaging protocol: Computed tomography of the lumbar spine without contrast. GABRIEL TSAI Preliminary Radiology Report PERSONAL BANKING REPRESENTATIVE (QA) DISCREPANCY? If there is a discrepancy between the preliminary and final interpretation, please notify ad via [email or web address]. If you do not have access to our QA portal, call our QA team at [phone] CONFIDENTIALITY STATEMENT This report is intended only for the use of the referring physician, and only in accordance with law, If you received this in error, call [phone] Page 2 of 2 COMPARISON: CT CHEST/ABD/PEL WO 01/31/2025 10:16 PM FINDINGS: Bones/joints: No acute fracture. Normal alignment. No significant disc bulge or herniation. No severe spinal canal stenosis. No significant neural foraminal narrowing. Soft tissues: Unremarkable. IMPRESSION: No acute lumbar spine fracture. Thank you for allowing us to participate in the care of your patient. Dictated and Authenticated by: Vandana Mckinnon MD PROCEDURE INFORMATION: Exam: CT Chest Without Contrast; Diagnostic Exam date and time: 01/31/2025 10:16 PM Age: 74 years old Clinical indication: Injury or trauma; Fall; Generalized; Blunt trauma (contusions or hematomas) TECHNIQUE: Imaging protocol: Diagnostic computed tomography of the chest without contrast. COMPARISON: CT CHEST WO 09/07/2023 8:39 AM FINDINGS: Lungs: Dense consolidative radiopacities are present within the lateral aspect of the right upper lobe. Scattered patchy airspace opacities are present within the bilateral upper lobes. There is likely rounded atelectasis at the left lung base. Pleural spaces: Unremarkable. No pneumothorax. No pleural effusion. Heart: Heart is normal size. No pericardial effusion. Coronary arteries: There are scattered atheromatous coronary artery calcifications. Lymph nodes: There is a 1.2 cm in diameter pretracheal node and a 1.3 cm in diameter subcarinal node. Vasculature: Atheromatous calcifications are present within the visualized thoracic aorta. Bones/joints: Bones have a normal appearance. No acute fracture or suspicious bone lesion. Soft tissues: Unremarkable. IMPRESSION: 1. Findings suspicious for multifocal pneumonia. However, short interval follow-up is recommended to exclude underlying pulmonary neoplasm. 2. Mediastinal adenopathy. Differential considerations include both infectious and neoplastic etiologies. GABRIEL TSAI Preliminary Radiology Report Page 2 of 3 PROCEDURE INFORMATION: Exam: CT Abdomen And Pelvis Without Contrast Exam date and time: 01/31/2025 10:16 PM Age: 74 years old Clinical indication: Injury or trauma; Fall; Generalized; Blunt trauma (contusions or hematomas) TECHNIQUE: Imaging protocol: Computed tomography of the abdomen and pelvis without contrast. COMPARISON: CT CHEST WO 09/07/2023 8:39 AM FINDINGS: Diaphragm: There is a small hiatal hernia. Liver: The liver is normal in size. A hypodensity is present at the right hepatic dome which may represent a hepatic cyst but is incompletely characterized. There is a hypodense 5.2 x 1.9 cm coronally oriented lesion within the inferior right hepatic margin (series 2/image 70 and series 4/image 38) pancreas. Gallbladder and biliary ducts: The gallbladder is unremarkable. No biliary ductal dilatation. Pancreas: Normal. No ductal dilation. Spleen: The spleen demonstrates normal size. Adrenal glands: The adrenal glands have a normal appearance. Kidneys and ureters: The kidneys are normal in size. A punctate nonobstructing calculus is visualized within the left kidney. No hydronephrosis. No hydroureter or ureterolithiasis. Stomach and bowel: The bowel demonstrates overall normal caliber and wall thickness. There are scattered diverticular outpouchings throughout the colon. No mucosal thickening or pericolonic fat stranding. Appendix: The appendix is not visualized and clips are noted in the region of the cecum suggesting prior appendectomy. Intraperitoneal space: There is no associated perihepatic fluid. Vasculature: There are scattered atheromatous calcifications throughout the aorta and iliac arteries. Lymph nodes: No enlarged lymph nodes. Urinary bladder: The bladder is thin walled and fluid filled. Reproductive: The uterus is not visualized and may be surgically absent. Bones/joints: Bones have a normal appearance. No acute fracture or suspicious bone lesion. Soft tissues: Unremarkable. IMPRESSION: 1. Irregularly marginated hypodense lesion within the inferior margin of the right hepatic lobe. Although there is no perihepatic free fluid to suggest extravasation, a liver laceration could cause this appearance. In the absence of contrast, acute liver injury can not be excluded. No prior studies are EULALIO GABRIEL Preliminary Radiology Report PERSONAL BANKING REPRESENTATIVE (QA) DISCREPANCY? If there is a discrepancy between the preliminary and final interpretation, please notify ad via [email or web address]. If you do not have access to our QA portal, call our QA team at [phone] CONFIDENTIALITY STATEMENT This report is intended only for the use of the referring physician, and only in accordance with law, If you received this in error, call [phone] Page 3 of 3 available to determine the acuity of this finding. A hepatic hemangioma or hepatic cyst could also be considered in the differential. 2. No other acute intra-abdominal findings. 3. Nonobstructing nephrolithiasis. Thank you for allowing us to participate in the care of your patient. Dictated and Authenticated by: Vandana Mckinnon MD 01/31/2025 10:46 PM Eastern Time ([place] & [place]) PROCEDURE INFORMATION: Exam: XR Right Foot Exam date and time: 01/31/2025 10:33 PM Age: 74 years old Clinical indication: Injury or trauma; Fall; Blunt trauma; Foot; Right TECHNIQUE: Imaging protocol: Radiologic exam of the right foot. Views: 3 or more views. COMPARISON: CR XR ANKLE RT COMPLETE 02/02/2020 8:32 AM FINDINGS: Bones/joints: There is likely a minimally displaced intra-articular fracture at the base of the proximal right 5th phalanx. No other acute fracture or dislocation. Soft tissues: Unremarkable. IMPRESSION: Findings suspicious for minimally displaced right proximal 5th phalangeal fracture as above. Please correlate with focal tenderness. Thank you for allowing us to participate in the care of your patient. Dictated and Authenticated by: Vandana Mckinnon MD 01/31/2025 10:49 PM Eastern Time ([place] & [place]) PROCEDURE INFORMATION: Exam: CT Head With Contrast Exam date and time: 01/31/2025 11:08 PM Age: 74 years old Clinical indication: Altered mental status/memory loss; Additional info: Concern for mass/lesion TECHNIQUE: Imaging protocol: Computed tomography of the head with intravenous contrast. Contrast material: OMNI 350; Contrast volume: 100 ml; Contrast route: INTRAVENOUS (IV); COMPARISON: CT HEAD CERVICAL SPINE WO 01/31/2025 10:12 PM FINDINGS: Brain: There are extensive scattered deep and periventricular white matter changes likely associated with chronic microvascular ischemia. There is lack of differentiation within the henderson and white matter within the right parietotemporal region. Sulcal effacement is also present in this region. No midline shift. No intracranial hemorrhage. A paucity of vessels are visualized within the focal edematous right cerebrum. Cerebral ventricles: There is mild mass effect on the posterior horn of the right lateral ventricle which is effaced. Bones/joints: Unremarkable. No acute fracture. Paranasal sinuses: Visualized sinuses are unremarkable. No fluid levels. Mastoid air cells: Visualized mastoid air cells are well aerated. Soft tissues: Unremarkable. Other findings: There are no discrete enhancing mass lesions on this postcontrast study. IMPRESSION: Focal vasogenic edema, sulcal effacement and dedifferentiation of the henderson/white matter interface within the right temporoparietal region. No underlying enhancing mass lesion is visualized to suggest intracranial metastasis with the associated edema. The intracranial findings, in addition to lack of visualized vessels within the edematous brain raises the suspicion for an evolving infarct. However, occult mass can not be excluded. If further characterization is warranted, MRI of the brain with and without contrast is recommended. Thank you for allowing us to participate in the care of your patient. Dictated and Authenticated by: Vandana Mckinnon MD 01/31/2025 11:32 PM Eastern Time ([place] & [place]) Related Data Home Medications Medication Instructions Recorded Confirmed folic acid 1 mg tablet 1 mg PO DAILY #30 tabs 02/03/17 01/31/25 inhalational spacing device #1 ea 12/01/19 01/31/25 (POCKET CHAMBER spacer) melatonin 10 mg capsule 20 mg PO HS PRN sleep 11/09/20 01/31/25 albuterol sulfate 90 mcg/actuation 1 - 2 puff inhalation Q4-6H PRN ##1 12/29/21 01/31/25 aerosol inhaler (ProAir HFA) lancets #100 ea 02/23/22 01/31/25 nebulizer #1 ea 06/09/22 01/31/25 Caps - intolerant of wigs #2 ea 08/17/22 01/31/25 glucometer #1 ea 09/20/22 01/31/25 magnesium oxide 400 mg PO DAILY 03/02/23 01/31/25 triamcinolone acetonide 0.1 % 1 applic topical DAILY 03/02/23 01/31/25 topical cream pen needle, diabetic 32 gauge x See Rx Instructions miscellaneous 10/23/23 01/31/25 5/32 (BD Ultra-Fine Itzel Pen .COMPLEX #100 ea Needle) ipratropium 0.5 mg-albuterol 3 mg See Rx Instructions .Route 11/08/23 01/31/25 (2.5 mg base)/3 mL nebulization .COMPLEX #90 mL soln nystatin 100,000 unit/gram topical 1 applic topical TID #30 grams 11/08/23 01/31/25 ointment blood sugar diagnostic (OneTouch #300 ea 01/25/24 01/31/25 Verio test strips) blood-glucose sensor (Dexcom G7 #1 ea 07/17/24 01/31/25 Sensor device) blood-glucose,fertilizer applicator,cont #1 ea 07/17/24 01/31/25 (Dexcom G7 Showroom Consultant) epinephrine 0.3 mg/0.3 mL 0.3 mg (0.3 mL) IM ONCE #2 ea 07/17/24 01/31/25 injection, auto-injector (EpiPen 2-Devin) insulin glargine 100 unit/mL (3 12 unit (0.12 mL) subcut QPM 07/17/24 01/31/25 mL) subcutaneous pen (Basaglar manage DM for pt with Rx KwikPen U-100 Insulin) Sensitivity #15 mL artifi.tears(hypromellose)(PF) 1.7 1 drp ophthalmic (eye) 4-8XD PRN 10/13/24 01/31/25 % eye drops with applicator dry eye(s) #12 mL rimegepant 75 mg disintegrating 75 mg PO ONCE PRN migraine 10/13/24 01/31/25 tablet (Nurtec ODT) headache #30 tabs simethicone 125 mg capsule (Gas 125 mg PO BID-QID PRN LUQ 10/13/24 01/31/25 Relief (simethicone)) Discomfort; abdominal distention #60 caps pregabalin 75 mg capsule 75 mg PO HS #30 caps 10/24/24 01/31/25 levothyroxine 50 mcg tablet See Rx Instructions .Route 11/25/24 01/31/25 .COMPLEX #28 tabs bupropion HCl 300 mg 24 hr tablet, See Rx Instructions .Route 12/11/24 01/31/25 extended release .COMPLEX #90 tabs hydroxyzine HCl 10 mg tablet See Rx Instructions .Route 12/11/24 01/31/25 .COMPLEX #120 tabs paroxetine HCl 40 mg tablet 40 mg PO DAILY #90 tabs 12/11/24 01/31/25 metoprolol succinate 25 mg 25 mg PO DAILY #90 tabs 01/23/25 01/31/25 tablet,extended release 24 hr omeprazole 40 mg capsule,delayed 40 mg PO DAILY 01/31/25 01/31/25 release Previous Rx's Medication Instructions Recorded folic acid 1 mg tablet 1 mg PO DAILY #30 tabs 02/03/17 inhalational spacing device #1 ea 12/01/19 (POCKET CHAMBER spacer) albuterol sulfate 90 mcg/actuation 1 - 2 puff inhalation Q4-6H PRN ##1 12/29/21 aerosol inhaler (ProAir HFA) lancets #100 ea 02/23/22 nebulizer #1 ea 06/09/22 Caps - intolerant of wigs #2 ea 08/17/22 glucometer #1 ea 09/20/22 pen needle, diabetic 32 gauge x See Rx Instructions miscellaneous 10/23/23 5/32 (BD Ultra-Fine Itzel Pen .COMPLEX #100 ea Needle) ipratropium 0.5 mg-albuterol 3 mg See Rx Instructions .Route 11/08/23 (2.5 mg base)/3 mL nebulization .COMPLEX #90 mL soln nystatin 100,000 unit/gram topical 1 applic topical TID #30 grams 11/08/23 ointment blood sugar diagnostic (OneTouch #300 ea 01/25/24 Verio test strips) blood-glucose sensor (Dexcom G7 #1 ea 07/17/24 Sensor device) blood-glucose,fertilizer applicator,cont #1 ea 07/17/24 (Dexcom G7 Showroom Consultant) epinephrine 0.3 mg/0.3 mL 0.3 mg (0.3 mL) IM ONCE #2 ea 07/17/24 injection,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
[2025-01-31 22:58] LABS: Glucose Negative (Negative)
[2025-01-31] MEDS: diazePAM 10 MG/2 ML SYR 2.5 MG IVP (22:59)
[2025-01-31 23:02] LABS: C & S Indicated? Yes
--- NOTE | 2025-01-31 23:33 | DI.VRAD_ITS ---
PROCEDURE INFORMATION: Exam: CT Head With Contrast Exam date and time: 01/31/2025 11:08 PM Age: 74 years old Clinical indication: Altered mental status/memory loss; Additional info: Concern for mass/lesion TECHNIQUE: Imaging protocol: Computed tomography of the head with intravenous contrast. Contrast material: OMNI 350; Contrast volume: 100 ml; Contrast route: INTRAVENOUS (IV); COMPARISON: CT HEAD CERVICAL SPINE WO 01/31/2025 10:12 PM FINDINGS: Brain: There are extensive scattered deep and periventricular white matter changes likely associated with chronic microvascular ischemia. There is lack of differentiation within the henderson and white matter within the right parietotemporal region. Sulcal effacement is also present in this region. No midline shift. No intracranial hemorrhage. A paucity of vessels are visualized within the focal edematous right cerebrum. Cerebral ventricles: There is mild mass effect on the posterior horn of the right lateral ventricle which is effaced. Bones/joints: Unremarkable. No acute fracture. Paranasal sinuses: Visualized sinuses are unremarkable. No fluid levels. Mastoid air cells: Visualized mastoid air cells are well aerated. Soft tissues: Unremarkable. Other findings: There are no discrete enhancing mass lesions on this postcontrast study. IMPRESSION: Focal vasogenic edema, sulcal effacement and dedifferentiation of the henderson/white matter interface within the right temporoparietal region. No underlying enhancing mass lesion is visualized to suggest intracranial metastasis with the associated edema. The intracranial findings, in addition to lack of visualized vessels within the edematous brain raises the suspicion for an evolving infarct. However, occult mass can not be excluded. If further characterization is warranted, MRI of the brain with and without contrast is recommended. Dictated and Authenticated by: Vandana Mckinnon MD. Orderin Alexey Taveras MD
[2025-02-01] VITALS (85 sets, daily range): BP systolic 115–250; BP diastolic 44–185; PULSE 94–116; RESP 13–30; TEMP 37.3–38; O2SAT 90–96
[2025-02-01] MEDS: levoFLOXacin 750 MG/150 ML BAG 100 MG IVPB (00:04)
[2025-02-01] MEDS: Aspirin 81 MG CHEW 324 MG CH (01:00)
--- NOTE | 2025-02-01 01:00 | W.EDPROG ---
Date of service: 02/01/25 Time of Service: 01:02 Medical Decision Making This patient was obtained in signout from Dr. Nitin Blackburn approximately midnight with plans to follow-up with teleneurology, who is evaluating the patient from [facility]. I spoke to Dr. Tim Rogers, who evaluated the patient for teleneurology, and reviewed the CT images. Dr. Rogers feels that the findings inside the brain relatively clearly represent subacute stroke, and is not a focus of metastatic disease that was likely found on other imaging studies tonight. He recommended patient have a full dose aspirin daily, and continue with routine testing for a subacute stroke including an MRI of the brain and echocardiogram as this could be thromboembolic in nature. The patient was able to pass a swallow study here in the emergency room he was given oral aspirin. Discussed the case with Dr. Roman for admission to the hospital service. Discharge Plan Disposition Patient Disposition: Admit to [facility] Condition: Stable Discharge Details Clinical Impression: CVA (cerebral vascular accident), Closed fracture of fifth toe of right foot, Leukocytosis, Acute UTI Primary Care Provider: Jeremi Rowley ED Provider: Elvin Cassidy Home Meds and New Rx's Prescriptions: No Action melatonin 10 mg capsule 20 mg PO HS PRN (Reason: sleep) (DME) nebulizer See Rx Instructions .Route .MEDSUPPLY Qty: 1 0RF Rx Instructions: As directed ipratropium-albuterol 0.5 mg-3 mg(2.5 mg base)/3 mL solution for nebulization See Rx Instructions .ROUTE .COMPLEX Qty: 90 1RF Dose Instruction: INHALE 3ML VIA NEBULIZER EVERY 6 HOURS NEEDED FOR WHEEZING Rx Instructions: INHALE 3ML VIA NEBULIZER EVERY 6 HOURS NEEDED FOR WHEEZING nystatin 100,000 unit/gram ointment 1 applic topical TID Qty: 30 1RF Rx Instructions: Continue for skin fold rash epinephrine [EpiPen 2-Devin] 0.3 mg/0.3 mL auto-injector 0.3 mg IM ONCE Qty: 2 1RF insulin glargine [Basaglar KwikPen U-100 Insulin] 100 unit/mL (3 mL) insulin pen 12 unit subcut QPM Qty: 15 1RF Rx Instructions: Start low-dose insulin (DME) Dexcom G7 [employer] Accessory Installer Misc See Rx Instructions .Route Qty: 1 0RF Rx Instructions: As directed, to keep HbA1c less than 6.5% (DME) Dexcom G7 Sensor Device See Rx Instructions .Route Qty: 1 12RF Rx Instructions: As directed, to keep HbA1c less than 6.5% albuterol sulfate [ProAir HFA] 90 mcg/actuation HFA aerosol inhaler 1 - 2 puff Inhalation Q4-6H PRN Qty: 1 3RF Rx Instructions: DISPENSE ALBUTEROL INHALER BRAND WITH SPACER COVERED BY INSURANCE (DME) lancets Mis See Rx Instructions .ROUTE .MEDSUPPLY Qty: 100 3RF Rx Instructions: As directed to check blood glucose daily. No insulin. Dispense covered brand. (DME) Caps - intolerant of wigs See Rx Instructions .Route .MEDSUPPLY Qty: 2 0RF Rx Instructions: Provide head covering instead of wigs magnesium oxide 400 mg magnesium capsule 400 mg PO DAILY triamcinolone acetonide 0.1 % cream 1 applic topical DAILY Nurtec ODT 75 mg tablet,disintegrating 75 mg PO ONCE PRN (Reason: migraine headache) Qty: 30 0RF Rx Instructions: as a single dose simethicone [Gas Relief (simethicone)] 125 mg capsule 125 mg PO BID-QID PRN (Reason: LUQ Discomfort; abdominal distention) Qty: 60 0RF artifi.tears(hypromellose)(PF) 1.7 % drops with applicator 1 drp ophthalmic (eye) 4-8XD PRN (Reason: dry eye(s)) Qty: 12 6RF paroxetine HCl 40 mg tablet 40 mg PO DAILY Qty: 90 0RF bupropion HCl 300 mg tablet extended release 24 hr See Rx Instructions .ROUTE .COMPLEX Qty: 90 1RF Dose Instruction: TAKE 1 TABLET BY MOUTH EVERY MORNING Rx Instructions: TAKE 1 TABLET BY MOUTH EVERY MORNING hydroxyzine HCl 10 mg tablet See Rx Instructions .ROUTE .COMPLEX Qty: 120 5RF Dose Instruction: TAKE 1 TABLET BY MOUTH FOUR TIMES A DAY NEEDED FOR ANXIETY Rx Instructions: TAKE 1 TABLET BY MOUTH FOUR TIMES A DAY NEEDED FOR ANXIETY (DME) POCKET CHAMBER Spacer See Rx Instructions .ROUTE .MEDSUPPLY Qty: 1 0RF Rx Instructions: As directed (DME) glucometer See Rx Instructions .Route .MEDSUPPLY Qty: 1 0RF Rx Instructions: ONE TOUCH VERIO per task, 08/2022 pen needle, diabetic [BD Ultra-Fine Itzel Pen Needle] 32 gauge x needle See Rx Instructions miscellaneous .COMPLEX Qty: 100 3RF Rx Instructions: Use one pen needle daily with insulin injection DX: E11.9. Keep A1c below 7. (DME) OneTouch Verio test strips Strip See Rx Instructions .ROUTE .MEDSUPPLY Qty: 300 3RF Rx Instructions: TID Testing to keep A1C <8, Diabetes Mellitus pregabalin 75 mg capsule 75 mg PO HS Qty: 30 5RF levothyroxine 50 mcg tablet See Rx Instructions .ROUTE .COMPLEX Qty: 28 3RF Dose Instruction: TAKE 1 TABLET BY MOUTH DAILY Rx Instructions: TAKE 1 TABLET BY MOUTH DAILY metoprolol succinate 25 mg tablet extended release 24 hr 25 mg PO DAILY Qty: 90 1RF omeprazole 40 mg capsule,delayed release(DR/EC) 40 mg PO DAILY folic acid 1 MG tablet 1 mg PO DAILY Qty: 30 0RF
[2025-02-01] MEDS: Normal Saline 1,000 ML 125 ML IV ×3 (01:29→17:48)
--- NOTE | 2025-02-01 01:50 | NUR.NOTE ---
PT was able to swallow small sips of water Nursing Note:
--- NOTE | 2025-02-01 01:56 | W.PM.HP.N ---
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 Contrast; Diagnostic Exam date and time: 01/31/2025 10:16 PM Age: 74 years old Clinical indication: Injury or trauma; Fall; Generalized; Blunt trauma (contusions or hematomas) TECHNIQUE: Imaging protocol: Diagnostic computed tomography of the chest without contrast. COMPARISON: CT CHEST WO 09/07/2023 8:39 AM FINDINGS: Lungs: Dense consolidative radiopacities are present within the lateral aspect of the right upper lobe. Scattered patchy airspace opacities are present within the bilateral upper lobes. There is likely rounded atelectasis at the left lung base. Pleural spaces: Unremarkable. No pneumothorax. No pleural effusion. Heart: Heart is normal size. No pericardial effusion. Coronary arteries: There are scattered atheromatous coronary artery calcifications. Lymph nodes: There is a 1.2 cm in diameter pretracheal node and a 1.3 cm in diameter subcarinal node. Vasculature: Atheromatous calcifications are present within the visualized thoracic aorta. Bones/joints: Bones have a normal appearance. No acute fracture or suspicious bone lesion. Soft tissues: Unremarkable. IMPRESSION: 1. Findings suspicious for multifocal pneumonia. However, short interval follow-up is recommended to exclude underlying pulmonary neoplasm. 2. Mediastinal adenopathy. Differential considerations include both infectious and neoplastic etiologies. PROCEDURE INFORMATION: Exam: CT Abdomen And Pelvis Without Contrast Exam date and time: 01/31/2025 10:16 PM Age: 74 years old Clinical indication: Injury or trauma; Fall; Generalized; Blunt trauma (contusions or hematomas) TECHNIQUE: Imaging protocol: Computed tomography of the abdomen and pelvis without contrast. COMPARISON: CT CHEST WO 09/07/2023 8:39 AM FINDINGS: Diaphragm: There is a small hiatal hernia. Liver: The liver is normal in size. A hypodensity is present at the right hepatic dome which may represent a hepatic cyst but is incompletely characterized. There is a hypodense 5.2 x 1.9 cm coronally oriented lesion within the inferior right hepatic margin (series 2/image 70 and series 4/image 38) pancreas. Gallbladder and biliary ducts: The gallbladder is unremarkable. No biliary ductal dilatation. Pancreas: Normal. No ductal dilation. Spleen: The spleen demonstrates normal size. Adrenal glands: The adrenal glands have a normal appearance. Kidneys and ureters: The kidneys are normal in size. A punctate nonobstructing calculus is visualized within the left kidney. No hydronephrosis. No hydroureter or ureterolithiasis. Stomach and bowel: The bowel demonstrates overall normal caliber and wall thickness. There are scattered diverticular outpouchings throughout the colon. No mucosal thickening or pericolonic fat stranding. Appendix: The appendix is not visualized and clips are noted in the region of the cecum suggesting prior appendectomy. Intraperitoneal space: There is no associated perihepatic fluid. Vasculature: There are scattered atheromatous calcifications throughout the aorta and iliac arteries. Lymph nodes: No enlarged lymph nodes. Urinary bladder: The bladder is thin walled and fluid filled. Reproductive: The uterus is not visualized and may be surgically absent. Bones/joints: Bones have a normal appearance. No acute fracture or suspicious bone lesion. Soft tissues: Unremarkable. IMPRESSION: 1. Irregularly marginated hypodense lesion within the inferior margin of the right hepatic lobe. Although there is no perihepatic free fluid to suggest extravasation, a liver laceration could cause this appearance. In the absence of contrast, acute liver injury can not be excluded. No prior studies are available to determine the acuity of this finding. A hepatic hemangioma or hepatic cyst could also be considered in the differential. 2. No other acute intra-abdominal findings. 3. Nonobstructing nephrolithiasis. Exam: XR Right Foot Exam date and time: 01/31/2025 10:33 PM Age: 74 years old Clinical indication: Injury or trauma; Fall; Blunt trauma; Foot; Right TECHNIQUE: Imaging protocol: Radiologic exam of the right foot. Views: 3 or more views. COMPARISON: CR XR ANKLE RT COMPLETE 02/02/2020 8:32 AM FINDINGS: Bones/joints: There is likely a minimally displaced intra-articular fracture at the base of the proximal right 5th phalanx. No other acute fracture or dislocation. Soft tissues: Unremarkable. IMPRESSION: Findings suspicious for minimally displaced right proximal 5th phalangeal fracture as above. Please correlate with focal tenderness .Exam: CT Thoracic Spine Without Contrast Exam date and time: 01/31/2025 10:16 PM Age: 74 years old Clinical indication: Injury or trauma; Fall; Blunt trauma (contusions or hematomas); Trauma, TECHNIQUE: Imaging protocol: Computed tomography of the thoracic spine without contrast. COMPARISON: CT HEAD CERVICAL SPINE WO 01/31/2025 10:12 PM FINDINGS: Bones/joints: No acute fracture. Normal alignment. No significant disc bulge or herniation. No severe spinal canal stenosis. No significant neural foraminal narrowing. Soft tissues: Unremarkable. IMPRESSION: No acute thoracic spine fracture. PROCEDURE INFORMATION: Exam: CT Lumbar Spine Without Contrast Exam date and time: 01/31/2025 10:16 PM Age: 74 years old Clinical indication: Injury or trauma; Fall; Blunt trauma (contusions or hematomas); Trauma, TECHNIQUE: Imaging protocol: Computed tomography of the lumbar spine without contrast. COMPARISON: CT CHEST/ABD/PEL WO 01/31/2025 10:16 PM FINDINGS: Bones/joints: No acute fracture. Normal alignment. No significant disc bulge or herniation. No severe spinal canal stenosis. No significant neural foraminal narrowing. Soft tissues: Unremarkable. IMPRESSION: No acute lumbar spine fracture Labs 01/31/25 21:31 01/31/25 21:31 Labs: Laboratory Results - last 24 hr 01/31/25 01/31/25 01/31/25 21:31 22:10 22:45 WBC 16.24 H RBC 4.40 Hgb 13.2 Hct 39.8 MCV 91 MCH 30.0 MCHC 33.2 RDW 14.3 Plt Count 159 MPV 9.7 Immature Gran % 0.4 Neutrophils % 78.1 Lymphocytes % 9.8 Monocytes % 10.7 Eosinophils % 0.7 Basophils % 0.3 Nucleated RBC % 0.0 Absolute Neutrophils 12.68 H Absolute Lymphocytes 1.59 Absolute Monocytes 1.74 H Absolute Eosinophils 0.11 Absolute Basophils 0.05 RBC Morphology Normal PT 11.2 H INR 1.1 APTT 28.8 VBG pH 7.38 VBG pCO2 41 VBG pO2 42 VBG HCO3 24 VBG Total CO2 22 L VBG O2 Saturation 77 VBG Base Excess -1 VBG Lactate 1.2 Sodium 138 Potassium 4.4 Chloride 103 Carbon Dioxide 24.8 Anion Gap 10.2 BUN 17 Creatinine 1.1 H Est GFR (CKD-EPI 2020) 53.39 Glucose 170 H Calcium 8.9 Total Bilirubin 0.6 AST 18 ALT 30 Alkaline Phosphatase 160 H Total Protein 7.2 Albumin 3.2 L Urine Color Yellow Urine Clarity Sl Cloudy Urine pH 7.0 Ur Specific [place] 1.025 Urine Protein 100 H Urine Ketones Negative Urine Blood Trace-intact H Urine Nitrite Positive H Urine Bilirubin Negative Urine Urobilinogen 0.2 Ur Leukocyte Esterase Trace H Urine RBC 5-10 H Urine WBC 10-20 H Ur Epithelial Cells Few Urine Crystals Moderate Amorphous Urine Bacteria Few Urine Casts Negative Urine Mucus Negative Ur Culture Indicated? Yes Urine Glucose Negative ABO/Rh A Negative Antibody Screen NEGATIVE Last Vital Signs Temp 36.2 C L 01/31/25 21:25 Pulse 101 H 02/01/25 00:56 Resp 20 02/01/25 00:56 BP 160/84 H 02/01/25 00:55 Pulse Ox 94 02/01/25 00:56 Time Spent Time spent with Patient: >75 minutes Time was spent: preparing to see the patient(eg.review tests), obtaining and/or reviewing separately otained hiistory, ordering medications,tests, procedures, referring, communicating with other health home health aide caregiver, indepentently interpreting results, counseling the patient (And family on treatment plan) and care coordination
[2025-02-01 03:47] LABS: COVID-19 PCR Negative (Negative); RSV PCR Negative (Negative)
[2025-02-01] MEDS: Levothyroxine 50 MCG TAB PO (06:15)
[2025-02-01] MEDS: Atorvastatin 40 MG TAB PO ×2 (06:15→20:49)
[2025-02-01 06:37] LABS: HCT 39.9 % (36.0-46.0); HGB 13.3 g/dL (11.2-15.7); MCH 30.6 pg (27.0-33.0); MCHC 33.3 % (32.0-36.0); MCV 92 fL (80-95); MPV 10.3 fL (8.0-11.0); Platelet Count 164 10^3/uL (130-400); RBC 4.35 10^6/uL (3.93-5.22); RDW 14.3 % (11.7-14.6); RDW-SD 48.1 fL; WBC 16.32 10^3/uL (4.4-10.8)
[2025-02-01 07:13] LABS: ALT 30 U/L (14-59); AST 43 U/L (15-37); Albumin 3.1 g/dL (3.4-5.0); Alkaline Phosphatase 161 U/L (46-116); Anion Gap 13.2 mmol/L (3-11); BUN 18 mg/dL (7-18); Bilirubin, Total 0.6 mg/dL (0.2-1.0); CO2 20.8 mmol/L (21.0-32.0); Calcium 9.0 mg/dL (8.5-10.1); Chloride 105 mmol/L (98-107); Glucose 139 mg/dL (74-106); Magnesium 2.0 mg/dL (1.8-2.4); Potassium 4.5 mmol/L (3.5-5.1); Sodium 139 mmol/L (136-145); Total Protein 7.2 g/dL (6.4-8.2)
[2025-02-01 07:20] LABS: TSH (W/Ref FT4) 1.09 uIU/mL (0.36-3.74)
[2025-02-01] MEDS: buPROPion-XL 150 MG TABCR 300 MG PO (09:05)
[2025-02-01] MEDS: Simethicone 80 MG CHEW 120 MG PO ×3 (09:05→20:50)
[2025-02-01] MEDS: Omeprazole 20 MG CAPCR 40 MG PO (09:05)
[2025-02-01] MEDS: Magnesium Oxide 400 MG TAB PO (09:05)
[2025-02-01] MEDS: Metoprolol CR 25 MG TABCR PO (09:06)
[2025-02-01] MEDS: Folic Acid 1 MG TAB PO (09:06)
[2025-02-01] MEDS: Enoxaparin 40 MG/0.4 ML SYR SC (09:06)
[2025-02-01] MEDS: PARoxetine 20 MG TAB 40 MG PO (09:06)
[2025-02-01] MEDS: Normal Saline Flush 10 ML SYR IVP ×2 (09:06→20:49)
[2025-02-01] MEDS: Aspirin 81 MG CHEW CH (09:38)
[2025-02-01] MEDS: hydrOXYzine HCL 10 MG TAB PO ×2 (09:38→15:59)
[2025-02-01] MEDS: Nystatin OINT 15 GM TUBE TP ×2 (11:36→21:01)
--- NOTE | 2025-02-01 12:24 | IN_ITS ---
Date of service: 02/01/25 Time of Service: 12:50 PT Notes Visit Reasons: Subacute CBA, PNA, UTI, Esphageal CA Inpatient Physical Therapy Evaluation Date: 02/01/2025 Referring Doctor: Blanco Roman PT Orders: PT CONSULT: Precautions: CVA,MS,PNA, standard, fallrisk Patient Profile/Admitting Diagnosis: CVA,PNA,UTI,Esophageal CA Divya is a 74-year-old female presenting to ED 01/31/25 having a 2-week history of decline with falls injuring her right fifth toe with a closed fracture and having increased confusion over especially the last 2 days ignoring her left side and wandering in conversation. She has long-term MS and is mostly in bed but able to ambulate with a walker which according to her family she does not use. Per ED she has no new focal neurological deficits other than ignoring her left side. Imaging does suggest subacute right temporoparietal CVA versus metastatic disease with acute changes. PMHX: []All Active Problems (Updated 02/01/25 @ 06:02 by Blanco Roman) Hypothyroidism (acquired) (Chronic) Pneumonia (Acute) Acute UTI (Acute) Leukocytosis (Acute) Closed fracture of fifth toe of right foot (Acute) CVA (cerebral vascular accident) (Chronic) Adenocarcinoma of esophagus (Acute) 01/27/25-[facility] [place] pathology report.Hiatal hernia (Chronic ~12/2024) 2 CMAbnormal EMG (Acute) Agoraphobia with panic attacks (Acute) Abnormal gastrointestinal PET scan (Acute) Post-concussion headache (Acute) Sagittal band rupture, extensor tendon, nontraumatic (Acute) Managed by [facility] [place] OrthopedicsTrigger finger, left middle finger (Acute) Trigger finger, left ring finger (Acute) Abscess of right thigh (Acute) lateral rt thigh - no cut/bug bite reported.Incurved toenail (Acute) CKD (chronic kidney disease) stage 3, GFR 30-59 ml/min (Chronic) 3b with GFR @ 40.47 (ave Cr 1.4 over 3 yrs)Acute nightmare disorder with associated non-sleep disorder (Acute) is it her medicine, she asks?At risk for cardiac dysfunction during anesthesia (Acute) Clinical Dx per PCP based on recent HOLD of colo/egd 2' CP .. recommending Card/EGD @ [facility] [place].Abnormal positron emission tomography (PET) scan (Acute) distal esophageal finding on PETDysphagia (Acute) Lung cancer (Chronic) Stable per PET, 12/2021. 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 Presumed Dx .. [ ] PulmPostprandial abdominal bloating (Acute) Osteoporosis (Chronic ~12/2022) Diabetes mellitus (Chronic) A1C 6.2%, down from last A1C 06/30/22 (6.6%)Seborrheic dermatitis (Acute) no improvement 2' shampoo;Chronic fatigue (Chronic) Fatigue due to excessive exertion (Acute) now minimal exertion Exertional dyspnea (Acute) Paroxysmal SVT (supraventricular tachycardia) (Chronic) Isolation, social (Acute) Becoming unbearable .. stayinhg in dark room with curtains closed. Missing kids/grandkids.Gastroesophageal reflux disease (Chronic) Alopecia (Acute) Multiple sclerosis (Chronic 09/26/12) affecting bladder per urol per pt reportOccipital neuralgia (Acute) Peripheral polyneuropathy (Chronic) Thyroid nodule (Acute) Three per 05/2021 US: FNA x1 ( 5 ACR Ti-Rad) recommended .. [ ] ENT .. ik. per 08/2019 US ([facility]): TIRADS evaluation, 7 points, TR 5, highly suspicious, tissue sampling recommended for lesions 1 cm or greater. (10x7x7) ..Thyroid nodule (benign appearance) found incidentally (Apr 2018 Onc note); Neck swelling, hair loss 08/2019.Drug-induced hypothyroidism (Acute) per chemo? re-check, 10/2020Falls frequently (Acute) Pt here today for: 1 mo, bg, dm; PATRIZIA was 05/15/23 plan was to: Plan Detail Says she hadn't been feeling well Has fallen twice in the past week. Still has ROLLE especially after hitting her head 06/09 Last A1C 6.2 todays is 6.6 Has labs done last week Follow Up: 3 mos (chronic conditions (ctld Rx)) 1 mos (BG, DM) Pt is overdue for an annual. A1C last 11/30/22 was 6.2%, needs foot exam.HEAvoidance coping (Acute) High anxiety with serious family health issues .. and difficulty getting to specialty care for MS and Hx Lung Cancer.Impacted cerumen, right ear (Acute) Leg pain (Acute) Neurogenic bladder (Acute) Per Urology, s/p BOTOX (detruser mm)Kidney stone on left side (Acute) Small, nonobstructive.. per US, 04/2022 RUQ abdominal pain (Acute) Episodic .. pt concerned about her liver .. US PRN Medical History (Reviewed 02/01/25 @ 01:56 EDT by Blanco Roman) Panic disorder Encounter for medication review and counseling Hx intolerance, changes and consistent discrepanciesWeight gain Very upset with weight gain .. is it due to medication?Chronic disease /disorder Chronic prescription benzodiazepine use Candidal intertrigo Painful skin lesions since October .. Nystatin ointment helps, they will add zinc paste to regimen.Wheelchair dependent FOR VACATION/TRAVEL; Renting a scooter for upcoming vacation, 11/30/22, ik ..For mod-long outings .. 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 Dx 2017 PET scan 10/31/18 [facility] [place] - new 9 mm nodular opacity right upper lobe. Other opacities stable. FDG avid nodule right lobe thyroid 09/03/19- PET scan. no new sites of suspected active malignancy or metastasis. Dr. Agata MD..12/2021 PET Scan stableOther injury of flexor muscle, fascia and tendon of right ring finger at wrist and hand level, initial encounter (09/11/16) Post covid-19 condition, unspecified Vocal cord anomaly Agree with COMPLIANCE ENGINEER (Oly Russell) to work with [employer]ORY [employer]ENGTHENING PRODUCTION SUPPORT ENGINEER DEVICEPrediabetes Newly DM with A1C > 6/5! Spring/Summer 2022Urinary urgency Resolved with BOTOX, bdominal or pelvic swelling, mass, or lump, right upper quadrant swells up at night , Hx taumaUrinary retention Myrbetriq helped, but then became incontinent ==> now s/p BOTOX with great results, 02/17/22, ikDream anxiety disorder resolved, 2' CBDNightmares resolved .. 2' CBDTetanus vaccination not carried out live ingredient contra-indicated administered 07/2021History of Clostridioides difficile colitis Family history of substance abuse Pt is not abusing substances; Pt is wary of possibly becoming dependent although we may need pain/anx meds @ times due to serious health conditions.History of substance abuse Hx very far back in 20s, started with Rx and weaned off...Chronic pain Stress due to illness of family member Mo dementia worsening, Step-Fa hospitalized x 5 days ([facility]) .. hope Brother can get guardianship .. Gr-dtr @ [facility] [place] wit illness .. Sister just out of rehab.Shingles (herpes zoster) polyneuropathy painful blisteringHematuria noticing dark, red urine .. hesitancy, but no dysuria.. NO BLOOD PER UA (08/2019)Palliative care patient Met w/ Dr. De Leon, 10/2020 .. considering morphine for pain & SOBTobacco use disorder QUIT 2019. 0-3 cigarettes/day (04/2019) . Hx 1-2 PPD 20 yrs ago. Lately no smoking bc of malaise. Galactorrhea not associated with childbirth (09/26/12) Anxiety and depression Eating disorder Surgical History (Reviewed 02/01/25 @ 01:56 EDT by Blanco Roman) H/O esophagogastroduodenoscopy (01/20/25) [facility] [place] Partially obstructing malignant esophageal tumor found-needs stagingTonsillectomy Oophrectomy, Both (~1989) with MARCO for endometriosisAbdominal hysterectomy (~1989) EndometriosisRepair of inguinal hernia (~1994) Appendectomy (10/24/07) Social History/Home Situation: Pt lives with who assists her with most daily activities, Per her daughter and 2 grandaughters she does not use her walker or w/c at home and has been falling progressively more over past 2 weeks although they report for past year she has been declining. Current Functional Limitations: Pt reports that she had been walking but falling alot, transfers with assist of and spends most of her time in bed. Divya intermittently answers my questions however 3 family members are present and able to give a more clear picture of her baseline status. Reported as declining but able to manage sit to stand and walking with frequent falls as not using walker at home. Equipment Owned/DME: walker/wheelchair Subjective:Pt states that she would like to sit up and try to stand however requried max assist of 2 to go supine to sit with bouts of anxiety due to right LE spasms, c/o right foot pain. Objective: General Observation: Pt is laying in ICU bed with head turned to right, right LE flexed, frequent movement of B LE with baseline twitching of both thighs. Increased tone noted in both LE. When she reached over with left UE to assist with rolling she had increased counseling aide on bed rail and difficulty releaseing. The family states some of the constant movements are normal but not the left side neglect or the inability to follow directions, of increased tone of left UE note noted initially with brief assessment of AROM of UE. She has IV in both UE, Purewick external catheter. ? ecchymosis of right foot Mental Status: Intermittently will look to the left if encouraged but will not sustain. Answers questions of her history but it is unclear of the accuracy given that her daugheter and 2 granddaughters had to correct her. She also repeatedly asked where her was. She was alert, and oriented to person and place. Pain: 10/10 right foot Vital Signs: monitored in ICU ROM: Right Upper Extremity:functional and purposeful ROM Left Upper Extremity: functional and purposefull ROM Right Lower Extremity:avoided right ankle DF/PF but full ROM knee hip flex/ext Left Lower Extremity: full functional ROM Strength: Right Upper Extremity: generally 3/5 Left Upper Extremity: good with AROM but with attempt at PNF D2 flex/ext had increased tone Right Lower Extremity:would not allow to touch right LE Left Lower Extremity: 4/5 t/o but also noted increased tone Sensation: unable to assess Bed Mobility/Transfers: Increased anxiety with touch or getting near right LE and did do best with letting her know every move we were going to do with her and giving her time to process. Rolling to right: Max assist of 2 and slowly giving patient time to process, she was unable to follow commands to use left leg bent and left arm reaching to bed rail to assist and could not release easily once she had grasped the rail with left. Supine to sit:Max assist of 2, both LE stay with tone, flexed at hips and knees, leaning to the right Sit to supine : Max assist of 2, again with clear verbalization of what we were doing and allowing for her to process and agree. Unable to assess further transfers Gait:Not assessed(at start of session patient was willing to try to stand) Balance: Static Sitting: poor hips and knees flexed, leans heavily to right with max assist to hold her up, she did respond to cueing to lean onto her left hand, keeping her hand flexed Dynamic Sitting: unable Static Standing: unable Dynamic Standing: unable Special Tests: Mobility Limitations Standardized Measure [facility]-PAC 6 clicks Basic Mobility Inpatient Short Form: Raw Score: 24 Standardized Score: 6.94 CMS Score:0 Informed Consent/Education: Patient instructed in purpose of PT consult and plan of care. Assessment: Patient is a 74 year old female referred to physical therapy services with the diagnosis of CVA, PNA, UTI,AMS with longstanding history of MS . Patient presents with clinical signs and symptoms consistent with the diagnosis with concerns of evolving neurological status with left-sided neglect increased tone left upper extremity in various symptoms of tone in both lower extremities which may be secondary to MS or may be a new evolving problem , as demonstrated by the following impairment level findings: Left side neglect, increased pain of right foot, poor bed mobility, poor sitting balance, inability to stand or to evaluate for balance and gait. This is a complex and evolving case with multiple factors impacting ability to assess but also are evolving. Impairments are contributing to the following functional limitations: AMPAC score. Patient is assessed as a High 20682 complexity based on the following: History: MS,AMS, past CVA,Esophageal CA,anxiety Examination: as outlined Presentation: unstable Decision Making: high Goals: Goals X1 week 1. Supine-Sit mod assist of 1 2. Sit-Supine mod assist of 1 3. Sit-Stand able to evaluate 4. Stand-Sit able to evaluate 5. Bed-Chair able to evaluate 6. Chair-Bed able to evaluate 7. Gait able to evaluate 8. Balance sitting balance good 9. Able to follow commands and assist with bed mobility Plan of Care/Treatment Plan: 1-2x/day, 7 days/week x 1 week. Plan of care has been reviewed with the PROFESSIONAL CASTER providing the service under Physical Therapy direction. Initiate Physical Therapy intervention for strengthening, bed mobility, transfers, gait, stairs, balance training, use of assistive device. DISCHARGE RECOMMENDATIONS: [] [x] SNF versus LTC based on ability to participate and progress [] TREATMENT CODE/TIME: [id number] 12:50-1:40 50'
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
[2025-02-01] MEDS: Acetaminophen 325 MG TAB 650 MG PO (16:10)
[2025-02-01] MEDS: Diclofenac 1% Gel 100 GM TUBE TP (20:49)
[2025-02-01] MEDS: Pregabalin 25 MG CAP 75 MG PO (20:50)
--- NOTE | 2025-02-01 22:48 | W.PC.ACHO ---
Registration Status: ADM IN Primary Language: Preferred Language: Kyrgyz ED Information & Data Chief Complaint AMS/LOC 01/31/25 22:56 Triage Note PT has HX of MS ans stomach 01/31/25 21:25 CX. PT has had increased AMS over 3 days. PT fell earlier today and hit head. PT is not on blood thinners. PT has R leg/foot pain. PT in c collar by EMS. PT has neck pain Medical / Surgical History (Last Reviewed 02/01/25 @ 01:56 EDT by Blanco Roman) Panic disorder Encounter for medication review and counseling Weight gain Chronic disease /disorder Chronic prescription benzodiazepine use Candidal intertrigo Wheelchair dependent Severe episode of recurrent major depressive disorder, with psychotic features Primary malignant neoplasm of lung metastatic to other site Other injury of flexor muscle, fascia and tendon of right ring finger at wrist and hand level, initial encounter (09/11/16) Post covid-19 condition, unspecified Vocal cord anomaly Prediabetes Urinary urgency Abdominal or pelvic swelling, mass, or lump, right upper quadrant Urinary retention Dream anxiety disorder Nightmares Tetanus vaccination not carried out History of Clostridioides difficile colitis Family history of substance abuse History of substance abuse Chronic pain Stress due to illness of family member Shingles (herpes zoster) polyneuropathy Hematuria Palliative care patient Tobacco use disorder Galactorrhea not associated with childbirth (09/26/12) Anxiety and depression Eating disorder (Last Reviewed 02/01/25 @ 01:56 EDT by Blanco Roman) H/O esophagogastroduodenoscopy (01/20/25) Tonsillectomy Oophrectomy, Both (~1989) Abdominal hysterectomy (~1989) Repair of inguinal hernia (~1994) Appendectomy (10/24/07) Most Recent Vital Signs Temperature 37.6 C H 02/01/25 19:58 Temperature Source Temporal Artery Scan 02/01/25 19:58 Pulse 94 H 02/01/25 19:58 Pulse 101 H 02/01/25 18:00 Respiratory Rate 18 02/01/25 19:58 Respiratory Effort Normal 02/01/25 03:05 Respiratory Depth Normal 02/01/25 03:05 Respiratory Pattern Normal 02/01/25 03:05 Blood Pressure 147/91 H 02/01/25 19:58 Blood Pressure Mean 109 02/01/25 19:58 Pulse Oximetry 93 02/01/25 19:58 Oxygen Delivery Method Room Air 02/01/25 19:58 Oxygen Flow Rate 0 02/01/25 19:58 Pain Level 10 02/01/25 18:53 Allergies cortisone (Cortisone) Allergy (Severe, Verified 01/31/25 21:35) Passed out venom-honey bee (bee venom (honey bee)) Allergy (Severe, Verified 01/31/25 21:35) Anaphylaxsis Cephalosporins Allergy (Unknown, Verified 01/31/25 21:35) Other (See Comment) Unknown naproxen (From Naprosyn) Allergy (Unknown, Verified 01/31/25 21:35) Other (See Comment) Pt. states it made her so sick Penicillins Allergy (Unknown, Verified 01/31/25 21:35) Other (See Comment) Pt states she doesn't recall having a reaction to this-- Sulfa (Sulfonamide Antibiotics) Allergy (Unknown, Verified 01/31/25 21:35) Other (See Comment) Diarrhea erythromycin base Allergy (Verified 01/31/25 21:35) Other (See Comment) derivatives of Unknown venlafaxine (From Effexor) Adverse Reaction (Intermediate, Verified 01/31/25 21:35) hallucinations not willing to try it again acetaminophen (From Vicodin) Adverse Reaction (Unknown, Verified 01/31/25 21:35) Nausea [facility] hydrocodone bitartrate (From Vicodin) Adverse Reaction (Unknown, Verified 01/31/25 21:35) Nausea [facility] carboplatin Adverse Reaction (Verified 01/31/25 21:35) THROMBOCYTOPENIA contrast dye Allergy (Severe, Uncoded 01/31/25 21:35) Hives Metal Allergy (Unknown, Uncoded 01/31/25 21:35) Skin Rash Seafood Allergy (Unknown, Uncoded 01/31/25 21:35) Skin Rash Active Medications Generic Name Dose Route Start Last Admin Trade Name Freq PRN Reason Stop Dose Admin Acetaminophen 650 mg 02/01/25 15:59 02/01/25 16:10 Acetaminophen 325 Mg Tab PO 650 mg Q4H PRN PRN Administration Aspirin 81 mg 02/01/25 08:30 02/01/25 09:38 Aspirin 81 Mg Chew CH 81 mg DAILY EVELYN Administration Atorvastatin Calcium 40 mg 02/01/25 20:00 02/01/25 20:49 Atorvastatin 40 Mg Tab PO 40 mg QPM EVELYN Administration Bupropion HCl 300 mg 02/01/25 08:30 02/01/25 09:05 Bupropion-Xl 150 Mg Tabcr PO 300 mg DAILY EVELYN Administration Diclofenac Sodium 4 gm 02/01/25 20:00 02/01/25 20:49 Diclofenac 1% Gel 100 Gm Tube TP 4 gm QID EVELYN Administration Enoxaparin Sodium 40 mg 02/01/25 08:30 02/01/25 09:06 Enoxaparin 40 Mg/0.4 Ml Syr SC 40 mg DAILY EVELYN Administration Folic Acid 1 mg 02/01/25 08:30 02/01/25 09:06 Folic Acid 1 Mg Tab PO 1 mg DAILY EVELYN Administration Hydroxyzine HCl 10 mg 02/01/25 03:32 02/01/25 15:59 Hydroxyzine Hcl 10 Mg Tab PO 10 mg QID PRN PRN Administration Anxiety Sodium Chloride 1,000 mls @ 125 mls/hr 02/01/25 01:30 EST 02/01/25 17:48 Saline 1000ml Bag IV 125 mls/hr INFUSION EVELYN Administration Insulin Aspart 0 units 02/01/25 08:00 02/01/25 22:16 Insulin Aspart 300 Units/3 Ml Pen SC Not Given 0800,1200,1700,2200 [facility] Protocol Levothyroxine Sodium 50 mcg 02/01/25 06:00 02/01/25 06:15 Levothyroxine 50 Mcg Tab PO 50 mcg DAILY@0600 EVELYN Administration Magnesium Oxide 400 mg 02/01/25 08:30 02/01/25 09:05 Magnesium Oxide 400 Mg Tab PO 400 mg DAILY EVELYN Administration Metoprolol Succinate 25 mg 02/01/25 08:30 02/01/25 09:06 Metoprolol Cr 25 Mg Tabcr PO 25 mg DAILY EVELYN Administration Nystatin 0 gm 02/01/25 08:30 02/01/25 21:01 Nystatin Oint 15 Gm Tube TP 1 applic TID EVELYN Administration Omeprazole 40 mg 02/01/25 07:30 02/01/25 09:05 Omeprazole 20 Mg Capcr PO 40 mg DAILY@0730 EVELYN Administration Paroxetine HCl 40 mg 02/01/25 08:30 02/01/25 09:06 Paroxetine 20 Mg Tab PO 40 mg DAILY EVELYN Administration Pregabalin 75 mg 02/01/25 20:00 02/01/25 20:50 Pregabalin 25 Mg Cap PO 75 mg HS EVELYN Administration Simethicone 120 mg 02/01/25 08:30 02/01/25 20:50 Simethicone 80 Mg Chew PO 120 mg QID EVELYN Administration Sodium Chloride 50 ml 01/31/25 23:00 01/31/25 22:54 Normal Saline - Diluent 50 Ml Vial IJ 50 ml DIRECTED EVELYN Administration Sodium Chloride 0 ml 02/01/25 08:30 02/01/25 20:49 Normal Saline Flush 10 Ml Syr IVP 10 ml BID EVELYN Administration Triamcinolone Acetonide 0 gm 02/01/25 08:30 02/01/25 12:22 Triamcinolone 0.1% Cr 15 Gm Tube TP Not Given DAILY EVELYN IV IV Catheter Type [Right Peripheral IV Antecubital] IV Catheter Type [Left Saline Lock Antecubital] IV Catheter Gauge [Right 18 Antecubital] IV Catheter Gauge [Left 20 Antecubital] Diagnostics 02/01/25 02/01/25 01/31/25 Range/Units 05:33 02:45 22:10 WBC 16.32 H (4.4-10.8) 10^3/uL RBC 4.35 (3.93-5.22) 10^6/uL Hgb 13.3 (11.2-15.7) g/dL Hct 39.9 (36.0-46.0) % MCV 92 (80-95) fL MCH 30.6 (27.0-33.0) pg MCHC 33.3 (32.0-36.0) % RDW 14.3 (11.7-14.6) % Plt Count 164 (130-400) 10^3/uL MPV 10.3 (8.0-11.0) fL Sodium 139 (136-145) mmol/L Potassium 4.5 (3.5-5.1) mmol/L Chloride 105 (98-107) mmol/L Carbon Dioxide 20.8 L (21.0-32.0) mmol/L Anion Gap 13.2 H (3-11) mmol/L BUN 18 (7-18) mg/dL Creatinine 0.9 (0.55-1.02) mg/dL Est GFR (CKD-EPI 2020) 67.92 (mL/min/1.73m2) Glucose 139 H (74-106) mg/dL Calcium 9.0 (8.5-10.1) mg/dL Magnesium 2.0 (1.8-2.4) mg/dL Total Bilirubin 0.6 (0.2-1.0) mg/dL AST 43 H (15-37) U/L ALT 30 (14-59) U/L Alkaline Phosphatase 161 H (46-116) U/L Total Protein 7.2 (6.4-8.2) g/dL Albumin 3.1 L (3.4-5.0) g/dL TSH 1.09 (0.36-3.74) uIU/mL COVID-19 Source Nasopharynx SARS-CoV-2 (PCR) Negative (Negative) Influenza Type A (PCR) Negative (Negative) Influenza Type B (PCR) Negative (Negative) RSV (PCR) Negative (Negative) ABO/Rh A Negative Antibody Screen NEGATIVE 01/31/25 23:46 Blood Culture - Pending Blood 01/31/25 23:45 Blood Culture - Pending Blood 01/31/25 22:45 Urine Culture - Pending Urine - Reflex from Ua [id number] Documentation Fingerstick Glucose Start: 02/01/25 03:32 Freq: AC & HS Status: Active Protocol: Activity Type Activity Date Activity User E-sign Co-sign Detail Recorded Client Recorded Date Recorded By Document 02/01/25 22:13 BKG DAEMON(3) [id number] 02/01/25 22:15 BKG DAEMON(4) Intake and Output - 24 Hour Total 01/31/25 21:14 thru 02/01/25 21:14 Intake Total 2400 Output Total 325 Balance 2074 Weight 63.503 kg Intake: IV 2160 Oral 240 Output: Urine 325 Other: Urine Color Yellow Urine Appearance Clear Urine Odor Normal Comment Diaper with small amount urine-changed; incontinence care provided and new external cath applied at this time. Falls Risk Assessment History of Falls Admit Due to Fall 02/01/25 03:05 Contributing Factors Confusion 02/01/25 03:05 Ambulatory Aids Uses ambulatory device + 02/01/25 03:05 Tubes/Lines With any additional score 02/01/25 03:05 Gait Evaluation W/any additional score 02/01/25 03:05 Cognition Cognitive impairment 02/01/25 03:05 Fall Total Score 113 02/01/25 03:05 Level of Risk Maximum Risk 02/01/25 03:05 Problems (Last Reviewed 02/01/25 @ 01:56 EDT by Blanco Roman) Hypothyroidism (acquired) (Chronic) Pneumonia (Acute) Acute UTI (Acute) Leukocytosis (Acute) Closed fracture of fifth toe of right foot (Acute) CVA (cerebral vascular accident) (Chronic) Adenocarcinoma of esophagus (Acute) CKD (chronic kidney disease) stage 3, GFR 30-59 ml/min (Chronic) COPD (chronic obstructive pulmonary disease) (Chronic) Diabetes mellitus (Chronic) Paroxysmal SVT (supraventricular tachycardia) (Chronic) Gastroesophageal reflux disease (Chronic) Multiple sclerosis (Chronic 09/26/12) Peripheral polyneuropathy (Chronic) Notes 02/01/25 01:50 EDT Nursing Notes by Mo Aldrich PT was able to swallow small sips of water Nursing Note: Initialized on 02/01/25 01:50 EDT - END OF NOTE v v v v v v v v v Sending and/or Receiving Nurses: Please use comment section below to note any information pertinent to the patient hand-off not included above. Information / Comments: Report received from: Report to Daja WEI but asssingment not handed off, Pt brought out from ICU with HEVER WEI until I come to [place] also at 1905
--- NOTE | 2025-02-02 | DI.US_ITS ---
Exam(s) US CAROTID EXAM: US CAROTID CLINICAL HISTORY: CVA, didn't tolerate MRA, contrast allergy. TECHNIQUE: Ultrasound carotids performed using grayscale, color-flow, and spectral Doppler imaging. COMPARISON: No exams were available for comparison FINDINGS: RIGHT CAROTID ARTERY: Plaque: Minimal plaque in the carotid bulb. Velocity elevation: None. LEFT CAROTID ARTERY: Plaque: Mild calcific plaque in the carotid bulb. Velocity elevation: None. VERTEBRAL ARTERIES: Antegrade flow. Measurements: R Bulb: 33.8 cm/s PS / 7.4 cm/s ED R CCA: 37.5 cm/s PS / 14.2 cm/s ED R ECA: 52.7 cm/s PS / 10.3 cm/s ED R ICA Prox: 32.6 cm/s PS / 7 cm/s ED R ICA Mid: 71.1 cm/s PS / 21.4 cm/s ED R ICA Distal: 82.9 cm/s PS /13.7 cm/s ED R Vert: 22.1 cm/s PS / 8.8 cm/s ED R SVR: 2.2 R DVR: 1 L Bulb: 53.4 cm/s PS / 14.1 cm/s ED L CCA: 61.1 cm/s PS / 14.1 cm/s ED L ECA: 49.1 cm/s PS / 8.6 cm/s ED L ICA Prox: 50.2 cm/s PS / 8.6 cm/s ED L ICA Mid: 72 cm/s PS / 20.7 cm/s ED L ICA Distal: 82 cm/s PS / 14.4 cm/s ED L Vert: 46.1 cm/s PS / 15.3 cm/s ED L SVR: 1.3 L DVR: 1 IMPRESSION: No evidence for hemodynamically significant carotid stenosis. Criteria for Carotid Stenosis: Normal: ICA PSV <125 cm/s no plaque or intimal thickening is visible. <50% stenosis: ICA PSV <125 cm/s and plaque or intimal thickening is visible. 50-69% stenosis: ICA PSV is 125-250 cm/s and plaque is visible. >70% stenosis to near occlusion: ICA PSV >250 cm/s with visible plaque and luminal narrowing. DATA REPOSITORY:
[2025-02-02 04:26] VITALS: BP 157/92; PULSE 94; RESP 16; TEMP 36.8; O2SAT 95
[2025-02-02] MEDS: Acetaminophen 325 MG TAB 650 MG PO ×3 (04:29→23:46)
[2025-02-02] MEDS: hydrOXYzine HCL 10 MG TAB PO ×2 (04:29→09:44)
[2025-02-02] MEDS: Normal Saline 1,000 ML 125 ML IV (04:30)
[2025-02-02] MEDS: Levothyroxine 50 MCG TAB PO (06:22)
[2025-02-02 06:44] LABS: HCT 37.1 % (36.0-46.0); HGB 12.4 g/dL (11.2-15.7); MCH 30.8 pg (27.0-33.0); MCHC 33.4 % (32.0-36.0); MCV 92 fL (80-95); MPV 9.7 fL (8.0-11.0); Platelet Count 173 10^3/uL (130-400); RBC 4.03 10^6/uL (3.93-5.22); RDW 14.3 % (11.7-14.6); RDW-SD 48.5 fL; WBC 17.66 10^3/uL (4.4-10.8)
[2025-02-02 07:21] LABS: ALT 30 U/L (14-59); AST 63 U/L (15-37); Albumin 2.8 g/dL (3.4-5.0); Alkaline Phosphatase 138 U/L (46-116); Anion Gap 13.9 mmol/L (3-11); BUN 19 mg/dL (7-18); Bilirubin, Total 0.6 mg/dL (0.2-1.0); CO2 20.1 mmol/L (21.0-32.0); Calcium 8.6 mg/dL (8.5-10.1); Chloride 105 mmol/L (98-107); Glucose 83 mg/dL (74-106); Magnesium 1.8 mg/dL (1.8-2.4); Potassium 3.6 mmol/L (3.5-5.1); Sodium 139 mmol/L (136-145); Total Protein 6.6 g/dL (6.4-8.2)
[2025-02-02 07:40] VITALS: BP 136/88; PULSE 95; RESP 17; TEMP 37.3; O2SAT 91
[2025-02-02] MEDS: Enoxaparin 40 MG/0.4 ML SYR SC (08:59)
[2025-02-02] MEDS: buPROPion-XL 150 MG TABCR 300 MG PO (09:00)
[2025-02-02] MEDS: Magnesium Oxide 400 MG TAB PO (09:00)
[2025-02-02] MEDS: Aspirin 81 MG CHEW CH (09:00)
[2025-02-02] MEDS: Metoprolol CR 25 MG TABCR PO (09:00)
[2025-02-02] MEDS: Omeprazole 20 MG CAPCR 40 MG PO (09:00)
[2025-02-02] MEDS: PARoxetine 20 MG TAB 40 MG PO (09:00)
[2025-02-02] MEDS: Simethicone 80 MG CHEW 120 MG PO ×2 (09:00→20:25)
[2025-02-02] MEDS: Normal Saline Flush 10 ML SYR IVP ×4 (09:00→20:26)
[2025-02-02] MEDS: Folic Acid 1 MG TAB PO (09:00)
--- NOTE | 2025-02-02 10:56 | W.SPSTE ---
Date of service: 02/02/25 Time of Service: 08:15 Subjective Clinical (Bedside) Swallow Evaluation Speech Language Pathology Referred by: Dr. Roman Referral Type: Clinical Swallow Evaluation Reason for Referral/HPI: Dysphagia [facility] IMPRESSIONS & RECOMMENDATIONS: Recommend swallow tx 2-3x/week to ensure safe and appropriate diet, without overt s/s aspiration. FURTHER [facility] SERVICES: Patient to be followed while on unit. Diet Recommendations: SOLIDS: 6-Soft & Bite-Sized Solids LIQUIDS: 0-Thin Liquids MEDICATIONS: Whole with 0-Thin Liquids RISK MANAGEMENT: Upright for all PO intake. Use supports for upright posture as needed, pt was noted to lean to the right today. Oral hygiene BID/2x per day Level of Assistance/Supervision: Supervision for all PO, have pt self feed. Assist with tray set up and navigating food throughout the meal, given potential visual field deficits PO intake only when awake/alert Strategies/Adaptations/Assistive Equipment: Alternate liquids and solids, ensure no oral residue at the end of meals. Posture/Positioning Needs: Maintain upright position at least 30 minutes after meals. SUBJECTIVE: Patient was in bed with her breakfast tray in front of her when [facility] entered the room. PT was assisting with tray set up, but left the room when [facility] arrived. Pt was agreeable to swallow evaluation. She was repositioned to a more upright position in her bed with support from TORCH STRAIGHTENER AND HEATER. Pt providing case history information, but also noted to demonstrate some confusion (e.g. talking to her however he was not present). Pain Reported? None Baseline Swallow Function: Pt reports that she has a history of some difficulty eating/swallowing. She reports she usually eats 'soft' food, given her dentition. She also says that sometimes water 'goes down' her throat 'earlier than it should'. Per chart review, pt has a history of GERD and adenocarcinoma of the esophagus. Per nursing notes, pt refused dinner, but managed lunch with assistance. PO Trials Assessed: [x] IDDSI 0 Thin Liquids [x] IDDSI 4 Puree Solid [x] IDDSI 6 Soft & Bite Size Solid [x] IDDSI 7EC Easy to Chew Solid Oral Mechanism Examination: Dentition: no upper teeth, a few lower teeth (natural) Oral hygiene: Fair Cranial Nerve Assessment: Oral mechanism examination was limited, given pt refusal and quickness to give up on tasks. She repeatedly stated I can't do that despite [facility] encouragement and modeling. CN V – Trigeminal Facial Sensation DNT Jaw Strength/ROM WNL CN VII- Facial labial ROM, strength, coordination, WNL CN IX – Glossopharyngeal DNT CN X – Vagus WNL Vocal quality and volume. CX XII – Hypoglossal WNL lingual ROM, strength, coordination Oral Phase Findings: [x] Difficulty chewing - prolonged chewing with IDDSI 7EC Easy to Chew Solid trial. [x] Residue - trace oral residue on tongue. Able to clear with liquid wash when prompted by [facility] Pharyngeal Phase Findings: No overt s/s aspiration during PO today. ASSESSMENT: Pt is a 74 year old woman referred for swallow evaluation given potential CVA and cognitive impairments which may be leading to dysphagia. Recommend that pt be placed on a IDDSI 6 Soft & Bite Size Solid and thin liquid diet given her tolerance today. Pt managed the aforementioned without overt s/s aspiration. However, pt did demonstrate some cognitive difficulties and potential visual field impairments which impacted her access to feeding. Several times throughout the evaluation, [facility] had to guide pt's gaze to find food items/silverware/etc. Additionally, pt demonstrated prolonged chewing with IDDSI 7EC Easy to Chew Solid, and trace oral residue with all PO. Recommend that pt be followed by [facility] department 2-3x per week to ensure appropriate diet and tolerance. Further [facility] Services indicated, to ensure most appropriate and tolerance of diet without overt s/s aspiration, onset of pneumonia or weight loss. Patient to be followed while on unit. Education Provided to: Nursing, Patient and TORCH STRAIGHTENER AND HEATER Topics Addressed: anatomy/physiology of swallowing mechanism, overt s/sx to monitor for re: potential aspiration of food / liquids, diet recommendations PLAN: Frequency: 2-3x/week for 1-2 weeks Goals: Bulk Tank Car Unloader Goals: Patient will remain free from aspiration-related illness, malnutrition, and dehydration. Short Term Goals: Patient will tolerate IDDSI 6 Soft & Bite Size Solid and Thin liquids without overt s/s aspiration across 2/2 visits. [facility] CPT Code: 02495 Clinical Swallowing [id number] Evaluation of speech sound production with evaluation of language comprehension and expression TOTAL TIME: 45 Minutes
[2025-02-02] MEDS: Midazolam 2 MG/2 ML VIAL 1 MG IVP ×2 (11:10→11:45)
--- NOTE | 2025-02-02 13:45 | OT.INIE ---
Occupational Therapy Notes Inpatient Occupational Therapy Evaluation Date: 02/02/25 Referring Doctor: Blanco Roman OT Orders: Non-urgent Precautions: Fall, Standard, DNR/DNI, CVA,MS,PNA PATIENT PROFILE/ADMITTING DIAGNOSIS: Pt is a 74 year old female who had a recent decline over the past 2 weeks. She presented to the ED with increased confusion and decreased functional mobility with a clinical impression of CVA (cerebral vascular accident), Closed fracture of fifth toe of right foot, Leukocytosis, Acute UTI with a dx of AMS/LOC. She was recently admitted to the ICU for management of this and is currently on Med Surg for the following dx of penumonia, adenocarcinoma esphagus, MS, closed fx of 5th toe, Diabetes, CKD, COPD, Hypothyroidism, anxiety/depression, gastroesphageal reflux, supraventricular tachycardia, peripheral neuropathy. Past Medical History: All Active Problems (Updated 02/01/25 @ 06:02 by Blanco Roman) Hypothyroidism (acquired) (Chronic) Pneumonia (Acute) Acute UTI (Acute) Leukocytosis (Acute) Closed fracture of fifth toe of right foot (Acute) CVA (cerebral vascular accident) (Chronic) Adenocarcinoma of esophagus (Acute) 01/27/25-[facility] [place] report.Hiatal hernia (Chronic ~12/2024) 2 CMAbnormal EMG (Acute) Agoraphobia with panic attacks (Acute) Abnormal gastrointestinal PET scan (Acute) Post-concussion headache (Acute) Sagittal band rupture, extensor tendon, nontraumatic (Acute) Managed by [facility] [place] OrthopedicsTrigger finger, left middle finger (Acute) Trigger finger, left ring finger (Acute) Abscess of right thigh (Acute) lateral rt thigh - no cut/bug bite reported.Incurved toenail (Acute) CKD (chronic kidney disease) stage 3, GFR 30-59 ml/min (Chronic) 3b with GFR @ 40.47 (ave Cr 1.4 over 3 yrs)Acute nightmare disorder with associated non-sleep disorder (Acute) is it her medicine, she asks?At risk for cardiac dysfunction during anesthesia (Acute) Clinical Dx per PCP based on recent HOLD of colo/egd 2' CP .. recommending Card/EGD @ [facility] [place].Abnormal positron emission tomography (PET) scan (Acute) distal esophageal finding on PETDysphagia (Acute) Lung cancer (Chronic) Stable per PET, 12/2021. 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 Presumed Dx .. [ ] PulmPostprandial abdominal bloating (Acute) Osteoporosis (Chronic ~12/2022) Diabetes mellitus (Chronic) A1C 6.2%, down from last A1C 06/30/22 (6.6%)Seborrheic dermatitis (Acute) no improvement 2' shampoo;Chronic fatigue (Chronic) Fatigue due to excessive exertion (Acute) now minimal exertion Exertional dyspnea (Acute) Paroxysmal SVT (supraventricular tachycardia) (Chronic) Isolation, social (Acute) Becoming unbearable .. stayinhg in dark room with curtains closed. Missing kids/grandkids.Gastroesophageal reflux disease (Chronic) Alopecia (Acute) Multiple sclerosis (Chronic 09/26/12) affecting bladder per urol per pt reportOccipital neuralgia (Acute) Peripheral polyneuropathy (Chronic) Thyroid nodule (Acute) Three per 05/2021 US: FNA x1 ( 5 ACR Ti-Rad) recommended .. [ ] ENT .. ik. per 08/2019 US ([facility]): TIRADS evaluation, 7 points, TR 5, highly suspicious, tissue sampling recommended for lesions 1 cm or greater. (10x7x7) ..Thyroid nodule (benign appearance) found incidentally (Apr 2018 Onc note); Neck swelling, hair loss 08/2019.Drug-induced hypothyroidism (Acute) per chemo? re-check, 10/2020Falls frequently (Acute) Pt here today for: 1 mo, bg, dm; PATRIZIA was 05/15/23 plan was to: Plan Detail Says she hadn't been feeling well Has fallen twice in the past week. Still has ROLLE especially after hitting her head 06/09 Last A1C 6.2 todays is 6.6 Has labs done last week Follow Up: 3 mos (chronic conditions (ctld Rx)) 1 mos (BG, DM) Pt is overdue for an annual. A1C last 11/30/22 was 6.2%, needs foot exam.HEAvoidance coping (Acute) High anxiety with serious family health issues .. and difficulty getting to specialty care for MS and Hx Lung Cancer.Impacted cerumen, right ear (Acute) Leg pain (Acute) Neurogenic bladder (Acute) Per Urology, s/p BOTOX (detruser mm)Kidney stone on left side (Acute) Small, nonobstructive.. per US, 04/2022 RUQ abdominal pain (Acute) Episodic .. pt concerned about her liver .. US PRN Medical History (Reviewed 02/01/25 @ 01:56 EDT by Blanco Roman) Panic disorder Encounter for medication review and counseling Hx intolerance, changes and consistent discrepanciesWeight gain Very upset with weight gain .. is it due to medication?Chronic disease /disorder Chronic prescription benzodiazepine use Candidal intertrigo Painful skin lesions since October .. Nystatin ointment helps, they will add zinc paste to regimen.Wheelchair dependent FOR VACATION/TRAVEL; Renting a scooter for upcoming vacation, 11/30/22, ik ..For mod-long outings .. 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 Dx 2017 PET scan 10/31/18 [facility] [place] - new 9 mm nodular opacity right upper lobe. Other opacities stable. FDG avid nodule right lobe thyroid 09/03/19- PET scan. no new sites of suspected active malignancy or metastasis. Dr. Agata MD..12/2021 PET Scan stableOther injury of flexor muscle, fascia and tendon of right ring finger at wrist and hand level, initial encounter (09/11/16) Post covid-19 condition, unspecified Vocal cord anomaly Agree with FINAL INSPECTOR MOVEMENT ASSEMBLY (Oly Russell) to work with EXPIRATORY MM STRENGTHENING BENEFITS MANAGER DEVICEPrediabetes Newly DM with A1C > 6/5! Spring/Summer 2022Urinary urgency Resolved with BOTOX, bdominal or pelvic swelling, mass, or lump, right upper quadrant swells up at night , Hx taumaUrinary retention Myrbetriq helped, but then became incontinent ==> now s/p BOTOX with great results, 02/17/22, ikDream anxiety disorder resolved, 2' CBDNightmares resolved .. 2' CBDTetanus vaccination not carried out live ingredient contra-indicated administered 07/2021History of Clostridioides difficile colitis Family history of substance abuse Pt is not abusing substances; Pt is wary of possibly becoming dependent although we may need pain/anx meds @ times due to serious health conditions.History of substance abuse Hx very far back in 20s, started with Rx and weaned off...Chronic pain Stress due to illness of family member Mo dementia worsening, Step-Fa hospitalized x 5 days ([facility]) .. hope Brother can get guardianship .. Gr-dtr @ [facility] [place] wit illness .. Sister just out of rehab.Shingles (herpes zoster) polyneuropathy painful blisteringHematuria noticing dark, red urine .. hesitancy, but no dysuria.. NO BLOOD PER UA (08/2019)Palliative care patient Met w/ Dr. De Leon, 10/2020 .. considering morphine for pain & SOBTobacco use disorder QUIT 2019. 0-3 cigarettes/day (04/2019) . Hx 1-2 PPD 20 yrs ago. Lately no smoking bc of malaise. Galactorrhea not associated with childbirth (09/26/12) Anxiety and depression Eating disorder Surgical History (Reviewed 02/01/25 @ 01:56 EDT by Blanco Roman) H/O esophagogastroduodenoscopy (01/20/25) [facility] [place] Partially obstructing malignant esophageal tumor found-needs stagingTonsillectomy Oophrectomy, Both (~1989) with MARCO for endometriosisAbdominal hysterectomy (~1989) EndometriosisRepair of inguinal hernia (~1994) Appendectomy (10/24/07) Social History/Home Situation: Pt notes that she lives with her in a private home and has been for 50+ years. She notes that she is (I) with her ADL/IADL routines at baseline but per discussion with pts daughter she notes that pts is the primary caregiver for pt and provides (A) with almost all of pts ADL/IADL routines. Equipment owned/DME: [facility] SUBJECTIVE: Pt was lying in bed when OT arrived. She is receptive to consult and her and daughter are in the room during consultation. Pt states that she is in a lot of pain today and is constant fidgeting in bed. OBJECTIVE: General Observation: Pleasant, redness in the (L) elbow, IV in the (R) UE. Pt is (R) hand dominant Mental Status: A&Ox3 Pain: c/o 10/10 pain in the body including foot ROM: RUE AROM WFL L UE AROM WFL STRENGTH: RUE 4-/5 throughout LUE 4/5 throughout FUNCTIONAL MOBILITY/ADLS: BATHING max (A) Set up/clean up Bathing UE Mod (A) with face with mod vc for task initiation and performance Bathing LE Max (A) DRESSING Dressing UE Mod-Max (A) at this time Dressing LE Max (A) GROOMING Mod (A) SPECIAL TESTS: Daily Activity Limitations Standardized Measure [facility] AM -PAC “6 clicks” Daily Activity Inpatient Short Form: Raw score: 9 Standardized score: 25.33 CMS score: 79.59% INFORMED CONSENT/EDUCATION: Pt instructed in purpose of OT Consult and plan of care. ASSESSMENT: Patient is a 74-year-old female referred to occupational therapy services with diagnosis of penumonia, adenocarcinoma esphagus, MS, closed fx of 5th toe, Diabetes, CKD, COPD, Hypothyroidism, anxiety/depression, gastroesphageal reflux, supraventricular tachycardia, peripheral neuropathy. Patient presents with clinical signs and symptoms consistent with dx, as demonstrated by the following impairment level findings/functional limitations: Impairments in ADL/IADL and leisure activities, increased confusion, visual impairment, decreased functional mobility required for ADL performance, decreased core stability and control for seated performance of ADLs. AMPAC score 9 Patient is assessed as a Moderate 07975 complexity based on the following: History: see above Examination: see functional limitations as noted above Presentation: evolving Decision Making: AMPAC score 9 GOALS Goals x1 week 1. Transfers (S) 2. Dressing seated (I) UE, mod (A) LE 3. Bathing Mod (A) 4. Toileting Mod (A) 5. Eating Mod (A) PLAN OF CARE/TREATMENT PLAN: 1x/day, 3-5 days/ week x 1week Initiate Occupational Therapy Services for bathing, dressing, grooming, toileting, eating, transfer training. DISCHARGE RECOMMENDATIONS OT recommends SNF when medically cleared per MD. TREATMENT TIME/MINUTES/CODES 01816, [id number], 35 minutes (1:40) [facility] [place], [place]
--- NOTE | 2025-02-02 13:51 | NT_ITS ---
PT Notes Visit Reasons: Subacute CBA, PNA, UTI, Esphageal CA Pt was not available for therapy intervention, pt out for imaging test, mid mo rning (echo/MRI) and early afternoon (US).
[2025-02-02] MEDS: Diclofenac 1% Gel 100 GM TUBE TP ×2 (14:19→20:25)
[2025-02-02] MEDS: Nystatin OINT 15 GM TUBE TP ×2 (14:19→20:25)
[2025-02-02 15:05] VITALS: BP 180/76; PULSE 90; RESP 17; TEMP 37.1; O2SAT 92
--- NOTE | 2025-02-02 16:27 | PGE_ITS ---
Date of Service Date of service: 02/02/25 Time of Service: 16:27 Assessment and Plan Assessment and plan (1) CVA (cerebral vascular accident): Start date: 02/01/25 Status: Chronic Assessment and plan: New large right MCA stroke seen on CT with left neglect. Dr. Irene doesn't think this is metastatic disease. Did not tolerate MRI/MRA, but no significant stenosis on carotid u/s. She does have atrial flutter, though teleneurology recommended ASA and statin for now. No clot on echo, but she may benefit from transition to anticoagu lation. PT/OT/PROPERTY INSPECTOR consultations. she may need rehab. Swallow evaluation recommended dysphagia diet and follow up. (2) Pneumonia: Status: Acute Assessment and plan: Suggesting multifocal pneumonia versus metastatic disease with patient to be placed on Levaquin to treat this and UTI. WBC up. She has no sputum for culture. (3) Acute UTI: Start date: 02/01/25 Status: Acute Assessment and plan: Positive UA with history of neurogenic bladder with her MS. Levaquin IV with patient have a urine culture pending (4) Adenocarcinoma of esophagus: Start date: 02/01/25 Status: Acute Assessment and plan: This is been diagnosed in the recent week with dysphagia for the last weeks prior to that diagnosis. She is eating and drinking well enough to continue diet and swallow pills. (5) Primary malignant neoplasm of lung metastatic to other site: Assessment and plan: Primary diagnosis was in 2017 with stabilization up till recently. This may be the source of her metastatic disease on imaging at this admission. She will follow-up with [facility] [place]. She does have a tissue diagnosis of adenocarcinoma in her esophagus and stomach recently. Deferred treatment after follow-up with [facility] [place] oncology. (6) Multiple sclerosis: Status: Chronic Assessment and plan: Followed for long time by a local neurologist not not seen neurology and has progressive disease. She was walk with a walker about 2 weeks prior to this a dmission but now is falling frequently. Workign with PT but it is challenging. (7) Closed fracture of fifth toe of right foot: Start date: 02/01/25 Status: Acute Assessment and plan: Symptomatic care with patient not ambulating. Her tenderness doesn't correlate with possible pinky toe fracture. Likely from contusion. Vascularly she appears intact. (8) Diabetes mellitus: Status: Chronic Assessment and plan: Hold outpatient medical therapy and do glucometer measurements before meals and at bedtime with sensitive insulin sliding scale coverage, no change (9) CKD (chronic kidney disease) stage 3, GFR 30-59 ml/min: Status: Chronic Assessment and plan: This appears stable, continue to monitor. (10) COPD (chronic obstructive pulmonary disease): Status: Chronic Assessment and plan: Continue outpatient inhalers, not exacerbated now. (11) Hypothyroidism (acquired): Status: Chronic Assessment and plan: Continue outpatient dosing of levothyroxine, TSH at goal level. (12) Anxiety and depression: Assessment and plan: Continue outpatient medical therapy. Patient appears to have been stable prior to this recent events on her multiple meds. (13) Gastroesophageal reflux disease: Status: Chronic Assessment and plan: Continue PPI. (14) Paroxysmal SVT (supraventricular tachycardia): Status: Chronic Assessment and plan: With patient's CVA most likely 2 days ago, we will continue metoprolol with no permissive hypertension indicated. EKG read as aflutter, which would be an indicaiton for anticoagulation, but with large infarct I wouldn't thompson this. (15) Peripheral polyneuropathy: Status: Chronic Assessment and plan: Continue outpatient medical therapy. (16) Elevated liver enzymes: Status: Acute Assessment and plan: new since admission, follow and get liver imaging if this continues, consider changing abx Subjective Subjective Patient reports: no new complaints, voiding w/o difficulty and nausea; denies vomiting, shortness of breath or fever Interval history since last seen: Events: Did not tolerate MRI/MRA, had carotid doppler and echo She feels a litlte better. No changes in vision, mental state, no new weakness. Not eating much. Exam Narrative Exam Narrative: General: Alert, oriented, NAD. Neglects left. Answers appropriately with no rmal speech. Lungs: Course BS but no rales/wheeze, nl effort Heart: RRR with normal rate. No appreciable murmur or gallop. Abdomen: soft, NT/ND Extremities: Without clubbing or edema. Good capillary refill. tender right foot at 1st MTP and base 5th metatarsal. No longer dark Pulses 2+ at DP. Warm. Neuro: Cranial nerves II to XII appear to be grossly intact x left eye esophoria. no focal motor deficits, strength roughly symmetric. Neglects left. FNF slower with left hand. Objective Last Vital Signs Temp 37.1 C 02/02/25 15:05 Pulse 90 02/02/25 15:05 Resp 17 02/02/25 15:05 BP 180/76 H 02/02/25 15:05 Pulse Ox 92 02/02/25 15:05 Laboratory Results - last 24 hr 02/02/25 06:04 WBC 17.66 H RBC 4.03 Hgb 12.4 Hct 37.1 MCV 92 MCH 30.8 MCHC 33.4 RDW 14.3 Plt Count 173 MPV 9.7 Sodium 139 Potassium 3.6 Chloride 105 Carbon Dioxide 20.1 L Anion Gap 13.9 H BUN 19 H Creatinine 0.9 Est GFR (CKD-EPI 2020) 67.92 Glucose 83 Calcium 8.6 Magnesium 1.8 Total Bilirubin 0.6 AST 63 H ALT 30 Alkaline Phosphatase 138 H Total Protein 6.6 Albumin 2.8 L Time Spent with Patient Time Spent with Patient: 35-49 minutes Time was spent: preparing to see the patient(eg.review tests), obtaining and/or reviewing separately otained hiistory, ordering medications,tests, procedures, referring, communicating with other health childcare worker, indepentently interpreting results, counseling the patient and care coordination
--- NOTE | 2025-02-02 17:28 | PDOC.CMPRO ---
Date of service: 02/02/25 Time of Service: 17:28 Care Management Progress Note Progress Note Text Progress Note Text: Divya was lying in bed, watching TV, when CM met with her today. She was very pleasant with CM. She told CM that she is in the hospital because her feet hurt something terrible and she is unable to walk. She was noted to be unable to keep her feet still in the bed. Divya was unable to answer all questions, so her , Balbir, was called. Balbir stated that he thinks Divya could use some short term rehab. He would like a referral sent to the [facility], and this was sent. Balbir stated that he will be in around 8am tomorrow for a visit. CM stated that she would check in with him tomorrow morning. Discharge Potential Discharge Needs: PCP F/U Appt Anticipated Barriers to Discharge: None Identified Patient/Family Education Needs: Review discharge instructions, discuss Ask Me Three Transportation: Private vehicle Plan: Anticipate that Divya will discharge home with new full services vs SNF for short term rehab. She will f/u with her PCP and continue per her plan of care. Divya's transportation will likely [facility] by [facility]. CM will continue to follow and update the plan as needed. Social Determinants of Health Screening Will the Patient Participate in the Screening?: Declined to provide
[2025-02-02 19:59] VITALS: BP 155/84; PULSE 90; RESP 18; TEMP 36.3; O2SAT 93
[2025-02-02] MEDS: Pregabalin 25 MG CAP 75 MG PO (20:25)
[2025-02-02] MEDS: Atorvastatin 40 MG TAB PO (20:25)
[2025-02-02 23:10] VITALS: BP 98/77; PULSE 99; RESP 19; TEMP 36.1; O2SAT 92
[2025-02-02] MEDS: levoFLOXacin 750 MG/150 ML BAG 100 MG IVPB (23:45)
[2025-02-02] MEDS: Melatonin 3 MG TAB 18 MG PO (23:46)
[2025-02-03] MEDS: hydrOXYzine HCL 10 MG TAB PO (01:12)
[2025-02-03 03:45] VITALS: BP 156/66; PULSE 97; RESP 19; TEMP 36.5; O2SAT 94
[2025-02-03] MEDS: Levothyroxine 50 MCG TAB PO (05:50)
[2025-02-03] MEDS: Acetaminophen 325 MG TAB 650 MG PO ×3 (05:50→23:09)
[2025-02-03 07:32] LABS: HCT 37.0 % (36.0-46.0); HGB 12.9 g/dL (11.2-15.7); MCH 31.5 pg (27.0-33.0); MCHC 34.9 % (32.0-36.0); MCV 91 fL (80-95); MPV 9.7 fL (8.0-11.0); Platelet Count 177 10^3/uL (130-400); RBC 4.09 10^6/uL (3.93-5.22); RDW 13.9 % (11.7-14.6); RDW-SD 46.4 fL; WBC 21.64 10^3/uL (4.4-10.8)
[2025-02-03 07:59] LABS: ALT 31 U/L (14-59); AST 58 U/L (15-37); Albumin 2.8 g/dL (3.4-5.0); Alkaline Phosphatase 147 U/L (46-116); Anion Gap 13.5 mmol/L (3-11); BUN 16 mg/dL (7-18); Bilirubin, Total 0.7 mg/dL (0.2-1.0); CO2 20.5 mmol/L (21.0-32.0); Calcium 8.8 mg/dL (8.5-10.1); Chloride 103 mmol/L (98-107); Glucose 84 mg/dL (74-106); Potassium 3.3 mmol/L (3.5-5.1); Sodium 137 mmol/L (136-145); Total Protein 6.8 g/dL (6.4-8.2)
[2025-02-03 08:02] VITALS: BP 163/86; PULSE 95; RESP 17; TEMP 36.8; O2SAT 95
[2025-02-03] MEDS: PARoxetine 20 MG TAB 40 MG PO (09:32)
[2025-02-03] MEDS: Omeprazole 20 MG CAPCR 40 MG PO (09:32)
[2025-02-03] MEDS: Normal Saline Flush 10 ML SYR IVP ×2 (09:32→19:51)
[2025-02-03] MEDS: Enoxaparin 40 MG/0.4 ML SYR SC (09:32)
[2025-02-03] MEDS: Simethicone 80 MG CHEW 120 MG PO ×2 (09:32→19:49)
[2025-02-03] MEDS: Folic Acid 1 MG TAB PO (09:32)
[2025-02-03] MEDS: Magnesium Oxide 400 MG TAB PO (09:33)
[2025-02-03] MEDS: buPROPion-XL 150 MG TABCR 300 MG PO (09:33)
[2025-02-03] MEDS: Aspirin 81 MG CHEW CH (09:33)
[2025-02-03] MEDS: Metoprolol CR 25 MG TABCR PO (09:33)
[2025-02-03] MEDS: Nystatin OINT 15 GM TUBE TP ×2 (09:43→19:51)
[2025-02-03] MEDS: Diclofenac 1% Gel 100 GM TUBE TP ×4 (09:43→19:50)
[2025-02-03 11:41] VITALS: BP 173/80; PULSE 94; RESP 17; TEMP 36.5; O2SAT 93
--- NOTE | 2025-02-03 11:45 | RT.EKG_ITS ---
APPROVED REPORT Exam: Resting ECG Reason for Exam: ? Qt on levoquin Patient Location: I HR:93 bpm ECG Measurements Heart Rate 93 AXIS [place] [id number] P [id number] QRSd 101 QRS -18 QT 405 T 9 QTc 504 Conclusion Probable sinus rhythm with artifact Anteroseptal infarct, age indeterminate...Q >35mS, T neg, V1-V2 Borderline prolonged QT interval...QTc >500mS
--- NOTE | 2025-02-03 12:11 | PGE_ITS ---
Date of Service Date of service: 02/03/25 Time of Service: 12:11 Assessment and Plan Assessment and plan (1) Encephalopathy: Status: Acute Assessment and plan: Unclear etiology, d/dx includes but is not limited to: delirium, encephalopathy s/p CVA, metabolic encephalopathy, infectious encephalopathy (2) CVA (cerebral vascular accident): Start date: 02/01/25 Status: Chronic Assessment and plan: - New large right MCA stroke seen on CT with left neglect diagnosed on 01/31, not c/w metastasis per radiology. Pt did not meet criteria for thrombolysis or endovascular therapy based on sx> 24 hours. Pt did not tolerate MRI/MRA, no significant stenosis or plaques on carotid u/s. - EKGs reviewed, no evidence of Aflutter noted initially. I did review initial EKG performed on 01/31, which was originally read as aflutter but overread by electronic warfare technician Dr Villarreal as NSR with motion artifact. Repeat EKG performed today, NSR rate 93, no afib or flutter. -echo performed, LVEF 55-60%, no segmental wall motion abnormalities or clot. -Teleneurology consulted 01/31, recommended ASA 325 x 1, followed by 81 mg daily and continued statin. - PT/OT/GROUP SUPERVISOR YARD consultations performed. SNF for rehab vs LTC recommended after discharge - OT consult on 02/02, limitations include impaired ADLs, confusion, visual impairment, decreased functional mobility, and decreased core stability. Pt to receive OT 3-5x/week for bathing, dressing, grooming, toileting, eating, and transfer training. - PT consult on 02/01, pt with impairments including L side neglect, R foot pain, poor bed mobility, poor sitting balance, and inability to stand for balance/gait evaluation. PT 1-2x daily, 7 days/week x 1 week recommended. Swallow evaluation recommended dysphagia diet and follow up. -GROUP SUPERVISOR YARD consult on 02/02, pt did demonstrate cognitive difficulties and visual field impairments which impacted access to feeding; she tolerated IDDSI 6 Soft and Bite sized solid and thin liquids without overt s/sx of aspiration. GROUP SUPERVISOR YARD 2-3 x/week for 1-2 weeks. (3) Leukocytosis: Status: Acute Assessment and plan: -Leukocytosis continuing to trend upwards (16.7 > 16.32 > 17.66 > 21.64) despite treatment of UTI and CAP with levofloxacin. Pt not on steroids. Procalcitonin ordered to further evaluate. -Blood cultures negative (no growth x 48 hours). (4) Pneumonia: Status: Acute Assessment and plan: -CT chest suggestive for PNA (RUQ infiltrate 4 x 3.6 x 2.2 cm) and LLL (2.2 x 1.5 x 2.5 cm) with ground glass infiltrates. Suggesting multifocal pneumonia versus metastatic disease. Pt currently treated with levofloxacin for treatment of CAP and UTI. No sputum available for culture. (5) Acute UTI: Start date: 02/01/25 Status: Acute Assessment and plan: Positive UA with history of neurogenic bladder, +nitrite, 10-20 WBC, few bacteria. - Pt treated with Levaquin IV for treatment of UTI and CAP -Urine cx positive for mixed gram positive valentine (10,000-50,000 CFU/mL), probable contamination. -previous urine cx with no resistance to levofloxacin (10/03/23, 05/15/23, 11/09/22) (6) Adenocarcinoma of esophagus: Start date: 02/01/25 Status: Acute Assessment and plan: -Diagnosed 01/27/25 via endoscopic biopsy, pt had been evaluated for worsening reflux and dysphagia. -Pt evaluated by GROUP SUPERVISOR YARD, She is eating and drinking well enough to continue soft diet and swallow pills. (7) Primary malignant neoplasm of lung metastatic to other site: Assessment and plan: -Primary diagnosis was in 2017 with remission until recently, likely source of metastatic disease (esophageal adenocarcinoma noted above). -Pt to f[place] [facility] (8) Multiple sclerosis: Status: Chronic Assessment and plan: -Not currently on any medications, not recently evaluated by neurology. -Has had increased falls over the last 2 weeks, ambulates at home with a walker. -Will continue to work with PT (9) Closed fracture of fifth toe of right foot: Start date: 02/01/25 Status: Acute Assessment and plan: -Pt currently unable to ambulate secondary to CVA, -Pain control with symptomatic care, pain most consistent with contusion. -Continue to work with PT for OOB/ambulation as tolerated (10) Diabetes mellitus: Status: Chronic Assessment and plan: -Last HbA1C 7.0 (10/13/24). -Continue fingerstick before meals and at bedtime with sensitive ISS coverage. -Blood sugars have been within range (90-120) (11) CKD (chronic kidney disease) stage 3, GFR 30-59 ml/min: Status: Chronic Assessment and plan: -Continue to monitor daily BMP -Creatinine stable, no evidence of STEVE, most recent GFRs have been in 50-60 range. (12) COPD (chronic obstructive pulmonary disease): Status: Chronic Assessment and plan: -Continue outpatient regimen of inhalers (albuterol q4-6 hours PRN, duonebs q6 hours PRN) (13) Hypothyroidism (acquired): Status: Chronic Assessment and plan: -Continue outpatient dosing of levothyroxine, TSH at goal level (1.09). (14) Anxiety and depression: Assessment and plan: -Continue outpatient medical therapy (bupropion daily , hydroxyzine PRN). Patient appears to have been stable prior to this recent events on her multiple meds. (15) Gastroesophageal reflux disease: Status: Chronic Assessment and plan: -Continue outpatient management of GERD with PPI (omeprazole). (16) Paroxysmal SVT (supraventricular tachycardia): Status: Chronic Assessment and plan: -Continue outpatient medication regimen with metoprolol. No permission hypertension indicated for CVA. (17) Peripheral polyneuropathy: Status: Chronic Assessment and plan: -Continue outpatient medical therapy (pregabalin qHS). (18) Elevated liver enzymes: Status: Acute Assessment and plan: -elevated AST (18> 43> 63> 58). New since admission, will continue to monitor, consider liver imaging if trend continues upward, consider changing abx Subjective Subjective Interval history since last seen: Divya is a 74 year old female with history of recent dx of gastric and esophageal carcinoma, COPD, T2DM, MS (since 2012), osteoporosis, anxiety/panic disorder and GERD who presented to the ED on 01/31/25 for altered mental status and injury from a fall (fx of 5th toe to R foot). Family reports sx including increased confusion over the previous 2 days, wandering in conversation, and ignoring her L side. She was diagnosed with large R MCA stroke w/ left neglect after teleneurology consult and CT/carotid US (pt did not tolerate MRI/MRA). Pt started on ASA and statin per teleneurology consult. Pt does have aflutter, no clot on echo; pt may benefit from transition to anticoagulation. Today pt noted to be confused, A+O x 2, not oriented to place but did know the year. Family at bedside (granddaughter Maria Ines) reports family has noticed pt has been more confused than usual since inpt admission and has had visual hallucinations. She is still recognizing family members. Exam Const General: cooperative, comfortable and no acute distress Orientation: alert, oriented to person, not oriented to place, oriented to time and confused HENMT Head: normal to inspection and atraumatic Ears: hearing grossly normal bilaterally General nose exam: external nose normal Face and sinus: normal facial exam Mouth: oral mucosae normal Teeth and gingiva: poor dentition Resp Effort & Inspection: normal respiratory effort and able to speak in complete sentences Auscultation: clear to auscultation bilaterally Cardio Rate: regular rate Rhythm: regular rhythm Skin General skin exam: no rashes or lesions noted and ecchymosis (R lateral distal foot) Neuro General: patient alert, patient awake, moves all extremities and unable to assess gait Cranial Nerves: CN's II-XI intact bilaterally, EOM intact bilaterally, facial strength normal, able to rotate head bilaterally, able to elevate shoulders bilaterally and other (gaze favors the R side, will look to the L if prompted but does not sustain) Cognition: abnormal cognition (not oriented to day of week or place, oriented to self and year) Speech: speech normal Motor: strength 5/5 throughout and other (L foot in plantar flexion) Sensory Exam: no sensory deficits noted Objective Last Vital Signs Temp 97.7 F 02/03/25 11:41 Pulse 94 H 02/03/25 11:41 Resp 17 02/03/25 11:41 BP 173/80 H 02/03/25 11:41 Pulse Ox 93 02/03/25 11:41 Laboratory Results - last 24 hr 02/03/25 06:45 WBC 21.64 H RBC 4.09 Hgb 12.9 Hct 37.0 MCV 91 MCH 31.5 MCHC 34.9 RDW 13.9 Plt Count 177 MPV 9.7 Sodium 137 Potassium 3.3 L Chloride 103 Carbon Dioxide 20.5 L Anion Gap 13.5 H BUN 16 Creatinine 1.0 Est GFR (CKD-EPI 2020) 59.86 Glucose 84 Calcium 8.8 Total Bilirubin 0.7 AST 58 H ALT 31 Alkaline Phosphatase 147 H Total Protein 6.8 Albumin 2.8 L Time Spent with Patient Time Spent with Patient: >50 minutes Time was spent: preparing to see the patient(eg.review tests), obtaining and/or reviewing separately otained hiistory, ordering medications,tests, procedures, referring, communicating with other health day care provider, indepentently interpreting results, counseling the patient and care coordination
--- NOTE | 2025-02-03 14:24 | PHA.REVIEW2 ---
Pharmacy Admission Review Admission Clinical Review Admission Pharmacy Review: Encephalopathy (Acute) Elevated liver enzymes (Acute) Pneumonia (Acute) Acute UTI (Acute) Leukocytosis (Acute) Closed fracture of fifth toe of right foot (Acute) Adenocarcinoma of esophagus (Acute) cortisone (Cortisone) Allergy (Severe, Verified 01/31/25 21:35) Passed out venom-honey bee (bee venom (honey bee)) Allergy (Severe, Verified 01/31/25 21:35) Anaphylaxsis Cephalosporins Allergy (Unknown, Verified 01/31/25 21:35) Other (See Comment) naproxen (From Naprosyn) Allergy (Unknown, Verified 01/31/25 21:35) Other (See Comment) Penicillins Allergy (Unknown, Verified 01/31/25 21:35) Other (See Comment) shellfish derived Allergy (Unknown, Verified 02/02/25 16:16) Unknown Sulfa (Sulfonamide Antibiotics) Allergy (Unknown, Verified 01/31/25 21:35) Other (See Comment) erythromycin base Allergy (Verified 01/31/25 21:35) Other (See Comment) venlafaxine (From Effexor) Adverse Reaction (Intermediate, Verified 01/31/25 21:35) hallucinations acetaminophen (From Vicodin) Adverse Reaction (Unknown, Verified 01/31/25 21:35) Nausea hydrocodone bitartrate (From Vicodin) Adverse Reaction (Unknown, Verified 01/31/25 21:35) Nausea carboplatin Adverse Reaction (Verified 01/31/25 21:35) THROMBOCYTOPENIA contrast dye Allergy (Severe, Uncoded 01/31/25 21:35) Hives Metal Allergy (Unknown, Uncoded 01/31/25 21:35) Skin Rash Resuscitation Status DNR/DNI Height 5 ft 2 in Weight 62.4 kg Pharmacy Admission Review Renal Dosing Renal Dosing: BUN 16 mg/dL (7-18) 02/03/25 06:45 Creatinine 1.0 mg/dL (0.55-1.02) 02/03/25 06:45 Medications needing adjustments: Reviewed (CrCl 44.12 mL/min) List of meds needing interventions: Current medications are okay Anticoagulation Anticoagulation: Hgb 12.9 g/dL (11.2-15.7) 02/03/25 06:45 Hct 37.0 % (36.0-46.0) 02/03/25 06:45 Plt Count 177 10^3/uL (130-400) 02/03/25 06:45 INR 1.1 (0.9-1.1) 01/31/25 21:31 Creatinine 1.0 mg/dL (0.55-1.02) 02/03/25 06:45 DVT Prophylaxis: Reviewed Medications: Enoxaparin (40mg daily) Relevant Labs Relevant Labs: Sodium 137 mmol/L (136-145) 02/03/25 06:45 Potassium 3.3 mmol/L (3.5-5.1) L 02/03/25 06:45 Chloride 103 mmol/L (98-107) 02/03/25 06:45 Magnesium 1.8 mg/dL (1.8-2.4) 02/02/25 06:04 Electrolytes, C-Reactive P, ESR: Reviewed (AST decreased from 63 to 58) DM Control DM Control: Glucose 84 mg/dL (74-106) 02/03/25 06:45 Finger Stick Blood Glucose 107 1146 Finger Stick Blood Glucose 107 1146 Finger Stick Blood Glucose 93 0734 Finger Stick Blood Glucose 93 0734 DM Control: Reviewed Insulin Dosing, Diabetic Medication: Has order for SS insulin Cardiac Review Cardiac Review: Blood Pressure : Heart Rate 173/80 : 94 1141 Blood Pressure : Heart Rate 163/86 : 95 0802 Blood Pressure : Heart Rate 156/66 : 97 0345 BP, HR, EF%: Reviewed List meds needing interventions: Has order for metoprolol XL 25mg daily QTc Review QTc: Intervened (550 from 01/31/25) List meds needing interventions: Spoke to provider regarding prolonged QTc and levofloxacin. Provider stated they will order another EKG and adjust treatment as needed. IV to PO Switch IV Medications: Reviewed (levofloxacin) Home Meds Home Med List reviewed: Reviewed Relevent Home Meds Not ordered & why?: Epipen (PRN) and glargine (has order for SS insulin) Current Meds Current Medication Order Review: Reviewed Pharmacy Antibiotic Review Relevant Labs: WBC 21.64 10^3/uL (4.4-10.8) H 02/03/25 06:45 Temperature 36.5 C Temperature 36.8 C Temperature 36.5 C Microbiology 01/31/25 22:45 Urine Culture - Final Urine - Reflex from Ua Gram positive valentine, mixed 01/31/25 23:46 Blood Culture - Preliminary Blood NO GROWTH 48 HOURS 01/31/25 23:45 Blood Culture - Preliminary Blood NO GROWTH 48 HOURS Pharmacy Antibiotic Activity: C/S review and Reviewed, no change Comments: Patient is on levofloxacin, day 3, for UTI/pneumonia. Levofloxacin renally dosed at every 48 hours. Provider looking into treatment due to prolonged QTc, no changes yet. WBC increased from 17.66
[2025-02-03 15:34] VITALS: BP 175/81; PULSE 92; RESP 17; TEMP 36.5; O2SAT 95
--- NOTE | 2025-02-03 15:47 | PT.INTREAT ---
PT Notes Visit Reasons: Subacute CBA, PNA, UTI, Esphageal CA Inpatient Physical Therapy Treatment Note [facility] Date: 02/03/2025 PRECAUTIONS: fall risk, standard SUBJECTIVE: Patient reports she is fearful of falling. OBJECTIVE: Pt presented Semireclined in bed patient noted to have head rotation to the right, ecchymotic area noted to dorsum right foot across metatarsal heads and along fifth metatarsal lateral border. Patient's daughter and present in room as well as MARLENE Willson and KAHLIL Torres Pt with confusion frequently asking how this PT's parents are and asking how the babies are doing, ( Dtr stating she thinks you are someone she knows) PAIN: Patient with verbalization of ouch and withdraw of right lower extremity with touch to right foot. Patient unable to utilize scale due to cognitive impairment VITALS: Monitored by nursing Therapeutic Activities ([id number]): Direct one-on-one instruction in dynamic activities to improve functional performance. Provided skilled cues and instruction on performance and technique throughout. BED MOBILITY/TRANSFERS Rolling L/R: Dependent x 2 bilateral directions patient noted with increased extensor tone resistive to movement Supine-sit: At right side of bed max assist of 2 with increase trunk extension and intermittent lower extremity extensor tone Sit-supine: Max assist of 1 then required dependent to to boost up in bed patient tolerates sit at edge of bed x 12 minutes with right upper extremity support initially dependent of 2 able to progress to contact-guard assist of 1 patient noted with increased flexor pattern of right lower extremity in extension left lower extremity while seated at edge of bed however is able to bring trunk forward and reduce trunk extension patient able to place bilateral lower extremities on floor. ASSESSMENT: Patient demonstrates significant extension tone trunk and bilateral lower extremities requiring assistive to to achieve trunk flexion to reduce affects of extensor tone. Patient fearful of movement. Patient intermittently able to follow instructions to reduce trunk extension in seated position. Patient limited by pain in right foot. Patient's family able to provide reassurance to patient. Patient is resistive and fearful limiting her ability to perform transfers to chair at this time. Anticipate patient may need mechanical lift/Love for transfers due to severity of trunk extension placing patient and staff at risk for injury. Will attempt bed to chair transfer next session. PLAN: Continue with plan of care with progression with sitting balance bed mobility and transfers TREATMENT CODE/TIME: 92049/2:04pm-3:08pm DISCHARGE RECOMMENDATION: SNF versus LTP depending on patient's progress towards goals
[2025-02-03 17:31] LABS: Procalcitonin 0.46 ng/mL
[2025-02-03] MEDS: Polyethylene Glycol 3350 17 GM PACKET PO (17:47)
[2025-02-03] MEDS: Docusate Sodium 100 MG CAP PO (17:47)
--- NOTE | 2025-02-03 17:47 | PDOC.CMPRO ---
Date of service: 02/03/25 Time of Service: 17:51 Care Management Progress Note Progress Note Text Progress Note Text: Divya continues to be very pleasantly confused. She is able to answer some questions, and others she is not. CM met with her, Balbir and daughter Yuli today. Yuli was teary at times to see her mom this way. Balbir wants to take Divya home, but feels that she does need some short term rehab. Referrals were sent to the [facility] and to [facility]. CM has received requests for more information on Divya throughout the day today from each of those facilities. CM also placed a referral to [facility] for options counseling, with Balbir's permission. Divya would benefit from [facility]. Palliative Care will see Divya tomorrow. Balbir was made aware of this and will do his best to be in attendance. Discharge Potential Discharge Needs: PCP F/U Appt Anticipated Barriers to Discharge: Bed availability Patient/Family Education Needs: Review discharge instructions, discuss [facility] Transportation: [facility] Transportation: Wheel chair van Plan: Divya's plan is still not clear, as we are waiting for replies from [facility]. Hopefully, Divya will have a bed offer. Otherwise, she will likely go home with new services of RN, PT/OT and WORKERS' COMPENSATION MEDIATOR. She will transport via [facility] wheelchair van and continue per her plan of care. CM will continue to follow. Social Determinants of Health Screening Will the Patient Participate in the Screening?: Declined to provide
[2025-02-03] MEDS: Atorvastatin 40 MG TAB PO (19:49)
[2025-02-03] MEDS: Pregabalin 25 MG CAP 75 MG PO (19:49)
[2025-02-03 19:59] VITALS: BP 151/76; PULSE 93; RESP 18; TEMP 36.2; O2SAT 95
[2025-02-03] MEDS: Melatonin 3 MG TAB 18 MG PO (23:09)
[2025-02-03 23:11] VITALS: BP 106/57; PULSE 94; RESP 18; TEMP 36.4; O2SAT 96
[2025-02-04 02:57] VITALS: BP 111/70; PULSE 96; RESP 16; TEMP 36.1; O2SAT 97
[2025-02-04] MEDS: Levothyroxine 50 MCG TAB PO (06:00)
[2025-02-04 07:39] VITALS: BP 154/83; PULSE 101; RESP 16; TEMP 36.5; O2SAT 95
[2025-02-04 07:58] LABS: Abs Immature Grans 0.18 10^3/uL (0.0-0.06); HCT 37.9 % (36.0-46.0); HGB 12.9 g/dL (11.2-15.7); Immature Grans % 0.8 %; MCH 30.3 pg (27.0-33.0); MCHC 34.0 % (32.0-36.0); MCV 89 fL (80-95); MPV 9.9 fL (8.0-11.0); Platelet Count 192 10^3/uL (130-400); RBC 4.26 10^6/uL (3.93-5.22); RDW 14.0 % (11.7-14.6); RDW-SD 45.2 fL; WBC 22.71 10^3/uL (4.4-10.8)
[2025-02-04 08:15] LABS: Anion Gap 13.6 mmol/L (3-11); BUN 21 mg/dL (7-18); CO2 20.4 mmol/L (21.0-32.0); Calcium 9.0 mg/dL (8.5-10.1); Chloride 103 mmol/L (98-107); Glucose 100 mg/dL (74-106); Potassium 3.2 mmol/L (3.5-5.1); RBC Morphology Normal; Sodium 137 mmol/L (136-145)
--- NOTE | 2025-02-04 08:31 | W.PM.PROGNOT ---
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 Haldol considered but deferred at this time due to risk of increased delirium (2) CVA (cerebral vascular accident): Start date: 02/01/25 Status: Chronic Assessment and plan: - New large right MCA stroke seen on CT with left neglect diagnosed on 01/31, not c/w metastasis per radiology. Pt did not meet criteria for thrombolysis or endovascular therapy based on sx> 24 hours. Pt did not tolerate MRI/MRA, no significant stenosis or plaques on carotid u/s. -reassruing echo (LVEF 55-60%, no segmental wall motion abnormalities) and EKGs (NSR, no changes c/w acute ischemia). -Teleneurology consulted 01/31, recommended ASA 325 x 1, followed by 81 mg daily and continued statin. - PT/OT/GAS ENGINE REPAIRER consultations performed, plan to continue PT 1-2x daily, GAS ENGINE REPAIRER 2-3x/ weekly, and OT 3-5x weekly. SNF for rehab vs LTC recommended after discharge -Pt has been accepted to [facility] for rehab -Palliative consulted; pt's family confirms DNR/DNI status (does not have [facility] paperwork on file) (3) Leukocytosis: Status: Acute Assessment and plan: -Leukocytosis continuing to trend upwards (16.7 > 16.32 > 17.66 > 21.64>22.7) despite treatment of UTI and CAP with levofloxacin. Pt not on steroids. Procalcitonin negative (0.46). -CT abdomen/pelvis with contrast (premedicated with benadryl for hives) -Blood cultures negative (no growth x 72 hours). (4) Pneumonia: Status: Acute Assessment and plan: -CT chest suggestive for multifocal pneumonia versus metastatic disease. Pt currently treated with levofloxacin for treatment of CAP and UTI. No sputum available for culture. (5) Acute UTI: Start date: 02/01/25 Status: Acute Assessment and plan: Positive UA with history of neurogenic bladder, +nitrite, 10-20 WBC, few bacteria. - Pt treated with Levaquin IV for treatment of UTI and CAP -Urine cx positive for mixed gram positive valentine (10,000-50,000 CFU/mL), probable contamination. No sensitivity to follow -previous urine cx with no resistance to levofloxacin (10/03/23, 05/15/23, 11/09/22) (6) Adenocarcinoma of esophagus: Start date: 02/01/25 Status: Acute Assessment and plan: -Diagnosed 01/27/25 via endoscopic biopsy, pt had been evaluated for worsening reflux and dysphagia. -Pt evaluated by GAS ENGINE REPAIRER, She is eating and drinking well enough to continue soft diet and swallow pills. (7) Primary malignant neoplasm of lung metastatic to other site: Assessment and plan: -Primary diagnosis was in 2017 with remission until recently, likely source of metastatic disease (esophageal adenocarcinoma noted above). -[place] to f[place] [facility] [place] (8) Multiple sclerosis: Status: Chronic Assessment and plan: -Not currently on any medications, not recently evaluated by neurology. -Has had increased falls over the last 2 weeks, ambulates at home with a walker. -Will continue to work with PT (9) Closed fracture of fifth toe of right foot: Start date: 02/01/25 Status: Acute Assessment and plan: -Pt currently unable to ambulate secondary to CVA -inflated pillow place around foot for comfort -Pain control with symptomatic care, pain most consistent with contusion. -Continue to work with PT for OOB/ambulation as tolerated (10) Diabetes mellitus: Status: Chronic Assessment and plan: -Last HbA1C 7.0 (10/13/24). -Continue fingerstick before meals and at bedtime with sensitive ISS coverage. -Blood sugars have been within range (90-120) (11) CKD (chronic kidney disease) stage 3, GFR 30-59 ml/min: Status: Chronic Assessment and plan: -Continue to monitor daily BMP -Creatinine stable, no evidence of STEVE, most recent GFRs have been in 50-60 range. (12) COPD (chronic obstructive pulmonary disease): Status: Chronic Assessment and plan: -Continue outpatient regimen of inhalers (albuterol q4-6 hours PRN, duonebs q6 hours PRN) (13) Hypothyroidism (acquired): Status: Chronic Assessment and plan: -Continue outpatient dosing of levothyroxine, TSH at goal level (1.09). (14) Anxiety and depression: Assessment and plan: -Continue outpatient medical therapy (bupropion daily , hydroxyzine PRN). Patient appears to have been stable prior to this recent events on her multiple meds. (15) Gastroesophageal reflux disease: Status: Chronic Assessment and plan: -Continue outpatient management of GERD with PPI (omeprazole). (16) Paroxysmal SVT (supraventricular tachycardia): Status: Chronic Assessment and plan: -Continue outpatient medication regimen with metoprolol. No permission hypertension indicated for CVA. (17) Peripheral polyneuropathy: Status: Chronic Assessment and plan: -Continue outpatient medical therapy (pregabalin qHS). (18) Elevated liver enzymes: Status: Acute Assessment and plan: -elevated AST (18> 43> 63> 58). New since admission, will continue to monitor -CT abdomen/pelvis performed to r/o liver abscess (area of hypodensity in R hepatic lobe and small hypodensity in L hepatic lobe noted on 01/31/25, asymptomatic) (19) Hypokalemia: Status: Acute Assessment and plan: -Mild hypokalemia (3.6> 3.3 >3.2) new since admission. Repleted with PO potassium. Will continue to monitor. Subjective Subjective Interval history since last seen: Divya has no new complaints today, continues to report R foot pain. Denies headache, vision changes, new chest discomfort or abdominal pain, new weakness. Family has been at bedside. Exam Const General: cooperative and comfortable Nutritional Appearance: average body habitus Orientation: alert, awake and confused Resp Effort & Inspection: normal respiratory effort and able to speak in complete sentences Auscultation: clear to auscultation bilaterally Cardio Rate: regular rate Rhythm: regular rhythm GI Inspection: normal to inspection and non-distended Palpation: soft, not firm, no guarding and nontender Neuro General: patient alert and patient confused (oriented to self, not place or time. Able to identify family members) Cranial Nerves: EOM intact bilaterally and facial strength normal Motor: strength 5/5 throughout Sensory Exam: no sensory deficits noted Extrem General: full ROM and capillary refill normal Left lower extremity: foot Details: tenderness, toes with normal ROM and ecchymosis; no unusual warmth, no abrasions, no lacerations and no crepitus; no cyanosis Objective Last Vital Signs Temp 97.7 F 02/04/25 07:39 Pulse 101 H 02/04/25 07:39 Resp 16 02/04/25 07:39 BP 154/83 H 02/04/25 07:39 Pulse Ox 95 02/04/25 07:39 Laboratory Results - last 24 hr 02/03/25 02/04/25 06:45 07:35 WBC 22.71 H RBC 4.26 Hgb 12.9 Hct 37.9 MCV 89 MCH 30.3 MCHC 34.0 RDW 14.0 Plt Count 192 MPV 9.9 Immature Gran % 0.8 Neutrophils % 82.7 Lymphocytes % 5.6 Monocytes % 10.0 Eosinophils % 0.7 Basophils % 0.2 Nucleated RBC % 0.0 Absolute Neutrophils 18.78 H Absolute Lymphocytes 1.27 Absolute Monocytes 2.27 H Absolute Eosinophils 0.16 Absolute Basophils 0.05 RBC Morphology Normal Sodium 137 Potassium 3.2 L Chloride 103 Carbon Dioxide 20.4 L Anion Gap 13.6 H BUN 21 H Creatinine 0.8 Est GFR (CKD-EPI 2020) 78.24 Glucose 100 Calcium 9.0 Procalcitonin 0.46 Imaging and Studies Imaging and Studies Study information below may be from another EMR and interpreted by another provider. Please see original notes in EMR for more complete details. EKG Image & Interpretation: EKG Interpretation Report 02/03/25, 11:45 Echo Interpretation: Echocardiogram Ultrasound 02/02/25, 10:20 CT Summary: Exam(s) CT ABDOMEN PELVIS W EXAM: CT ABDOMEN PELVIS W CLINICAL HISTORY: ongoing leukocytosis, elevated LFTs, ? abscess TECHNIQUE: Imaging Protocol: Axial computed tomography images with coronal and sagittal reformatted images were created and reviewed. CONTRAST MATERIAL: Intravenous: Omnipaque 350 Contrast volume:75 mL Oral: No COMPARISON: CT ABD PELVIS WO CONTRAST from 09/28/[address] CHEST WO from 02/18/[address] CHEST WO from 07/09/[address] CHEST WO from 09/07/[address] THORACIC LUMBAR SPINE REC from 01/31/[address] CHEST/ABD/PEL WO from 01/31/2025 FINDINGS: The examination is limited due to patient motion artifact. ABDOMEN: Lung Bases: There is a persistent rounded pleural-based opacity in the left lower lobe. This is unchanged and neoplastic process should be considered. There is atelectasis in the right lung base. Liver: There is again seen a linear lucency in the inferior aspect of the right lobe of the liver concerning for laceration. There are several hypodensities seen within the liver which have the appearance of cysts. There appears stable compared to the prior examinations. Portal, Superior Mesenteric, and Splenic Veins: Unremarkable. Gallbladder and Biliary Tract: No radiodense calculus or dilation. Pancreas: Normal density, no abnormal calcifications or inflammatory process. Spleen: There is an area of decreased attenuation in the superior aspect of the spleen not appreciated on prior examinations. There is no evidence of a perisplenic hematoma. Adrenals: No masses seen. Kidneys: Normal size, contour and axis. There is no obstructive uropathy. There are tiny hypodensities seen on the right kidney. They are too small for further characterization but likely reflect small cysts. No follow-up is recommended. Abdominal Aorta: Abdominal portion non-dilated. Atherosclerotic calcifications are present. Bowel: No obstruction or bowel wall thickening. The patient is status post appendectomy. There is a small hiatal hernia. Peritoneal Cavity: No ascites, collection or mesenteric inflammatory response. No free air. Lymph Nodes: Within normal limits. Bones: Within normal limits for the patient's age. Soft Tissues: Unremarkable. PELVIS: Bladder: Symmetric distention, no gross wall thickening. Reproductive Organs: Status post hysterectomy. Lymph Nodes: Within normal limits. Bones: Within normal limits for the patient's age. IMPRESSION: 1. There is patient motion artifact. This does limit the examination. 2. There is no evidence of an abdominal or pelvic abscess. 3. Stable linear area of decreased attenuation in the inferior liver. Laceration should be considered in this patient given the history of trauma. There is no active contrast extravasation. 4. Lucency seen in the superior aspect of the spleen. Differential considerations include cyst, hemangioma or laceration. There is no evidence of a perisplenic hematoma. 5. Stable pleural based left lower lobe mass. Carotid Artery US: Carotid Artery US 02/02/25, 00:00 Time Spent with Patient Time Spent with Patient: >50 minutes Time was spent: preparing to see the patient(eg.review tests), obtaining and/or reviewing separately otained hiistory, ordering medications,tests, procedures, referring, communicating with other health youth career specialist, indepentently interpreting results, counseling the patient and care coordination
[2025-02-04] MEDS: Enoxaparin 40 MG/0.4 ML SYR SC (09:10)
[2025-02-04] MEDS: Polyethylene Glycol 3350 17 GM PACKET PO (09:11)
[2025-02-04] MEDS: Docusate Sodium 100 MG CAP PO (09:11)
[2025-02-04] MEDS: Magnesium Oxide 400 MG TAB PO (09:11)
[2025-02-04] MEDS: Aspirin 81 MG CHEW CH (09:11)
[2025-02-04] MEDS: PARoxetine 20 MG TAB 40 MG PO (09:11)
[2025-02-04] MEDS: Folic Acid 1 MG TAB PO (09:12)
[2025-02-04] MEDS: Acetaminophen 325 MG TAB 650 MG PO ×3 (09:12→22:48)
[2025-02-04] MEDS: Simethicone 80 MG CHEW 120 MG PO ×4 (09:12→20:00)
[2025-02-04] MEDS: buPROPion-XL 150 MG TABCR 300 MG PO (09:12)
[2025-02-04] MEDS: Omeprazole 20 MG CAPCR 40 MG PO (09:12)
[2025-02-04] MEDS: Metoprolol CR 25 MG TABCR PO (09:12)
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
[2025-02-04] MEDS: Normal Saline Flush 10 ML SYR IVP ×5 (10:55→20:01)
[2025-02-04] MEDS: diphenhydrAMINE 50 MG/ML VIAL 25 MG IVP (10:58)
[2025-02-04] MEDS: Diclofenac 1% Gel 100 GM TUBE TP ×4 (11:02→20:02)
[2025-02-04 11:22] VITALS: BP 158/88; PULSE 86; RESP 17; TEMP 36.6; O2SAT 94
[2025-02-04] MEDS: POTASSIUM CHLORIDE 20 MEQ/100 ML BAG 50 MEQ IV_INF ×2 (12:41→15:04)
--- NOTE | 2025-02-04 13:18 | OT.INNT ---
Occupational Therapy Notes 02/04/25 OT went to work with pt who reports that she has already been washed up and is waiting for her MRI. OT will attempt to work with her tomorrow. Leticia Puckett OTR/[facility] [place], [place]
[2025-02-04] MEDS: Milk of Magnesia 30 ML CUP PO (14:59)
--- NOTE | 2025-02-04 15:04 | PT.INTREAT ---
Date of service: 02/04/25 PT Notes Visit Reasons: Subacute CBA, PNA, UTI, Esphageal CA Inpatient Physical Therapy Treatment Note [facility] Date: 02/04/2025 PRECAUTIONS: fall risk, standard SUBJECTIVE: Patient reports she is fearful of falling. OBJECTIVE: Pt presented Semireclined in bed. Patient noted to have head rotation to the right, ecchymotic area remains to dorsum right foot across metatarsal heads and along fifth metatarsal lateral border. Patient's daughter and present in room. Pt with confusion. PAIN: Patient with verbalization of ouch and withdraw of right lower extremity with touch to right foot. Patient unable to utilize scale due to cognitive impairment VITALS: Monitored by nursing Therapeutic Activities (40525c[]): Direct one-on-one instruction in dynamic activities to improve functional performance. Provided skilled cues and instruction on performance and technique throughout. BED MOBILITY/TRANSFERS Rolling L/R: Dependent x 2 bilateral directions patient noted with increased extensor tone resistive to movement Supine-sit: At right side of bed max assist of 2 with increase trunk extension and intermittent lower extremity extensor tone Sit-supine: Max assist of 1 then required dependent of 2 to boost up in bed patient tolerates sit at edge of bed x 18 minutes with right upper extremity support initially Max A of 2 able to progress to contact-guard assist of 1 patient noted with increased flexor pattern of right lower extremity while seated at edge of bed however is able to bring trunk forward and reduce trunk extension patient able to place bilateral lower extremities on floor. with PF Pt able to wash her face with BUE while seated unsupported. sit to stand at FWW with Max A of 2 and blocking BLE to prevent feet from sliding out. Pt stood at FWW with mod A of 2 with noted toe touch on RLE Pt tolerated stand x2 30 sec. ASSESSMENT: Patient demonstrates significant extension tone trunk and bilateral lower extremities requiring assistive to to achieve trunk flexion to reduce affects of extensor tone. Patient fearful of movement. Patient intermittently able to follow instructions to reduce trunk extension in seated position. Patient limited by pain in right foot. Pt with improved tolerance to sitting at EOB and ability to sit with 1UE support. Patient is resistive and fearful limiting her abilities.Pt unable to perform transfers OOB as she was going to CT scan and required premedication. Will attempt bed to chair transfer next session. PLAN: Continue with plan of care with progression with sitting balance bed mobility and transfers TREATMENT CODE/TIME: 26714,59833/ [id number] DISCHARGE RECOMMENDATION: SNF versus LTP depending on patient's progress towards goals Gloria Harvey, PT [facility]
[2025-02-04 15:26] VITALS: BP 147/79; PULSE 86; RESP 16; TEMP 36.6; O2SAT 93
[2025-02-04] MEDS: diphenhydrAMINE 50 MG/ML VIAL IVP (15:45)
[2025-02-04] MEDS: Normal Saline - Diluent 50 ML VIAL IJ (16:07)
[2025-02-04] MEDS: Omnipaque 350 MG/ML 100 ML BTL IJ (16:07)
--- NOTE | 2025-02-04 17:48 | CMPROGNOTE_ITS ---
Date of service: 02/04/25 Time of Service: 17:48 Care Management Progress Note Progress Note Text Progress Note Text: Divya was lying in bed, her and daughter were visiting, when CM met with them today. Divya was offered a short term rehab bed at the [facility] today, and her family was happy to accept. Divya seems to be making some small improvements with PT. Palliative care was also in today to see Divya and her family. She will continue to be followed as outpatient. Discharge Potential Discharge Needs: PCP F/U Appt Anticipated Barriers to Discharge: None Identified Patient/Family Education Needs: Review discharge instructions, discuss Ask Me Three Transportation: [facility] Transportation: Wheel chair van Plan: Divya will transfer to the [facility] tomorrow for short term rehab. Balbir is really hoping to be able to take her home. Divya will f/u with the facility provider, continue to be followed by palliative care and continue with her plan of care. She will transport via [facility] wheelchair van vs EMS. Social Determinants of Health Screening Will the Patient Participate in the Screening?: Declined to provide
[2025-02-04] MEDS: Pregabalin 25 MG CAP 75 MG PO (20:00)
[2025-02-04] MEDS: Atorvastatin 40 MG TAB PO (20:00)
[2025-02-04 20:02] VITALS: BP 137/99; PULSE 89; RESP 18; TEMP 35.9; O2SAT 94
[2025-02-04] MEDS: Nystatin OINT 15 GM TUBE TP (20:02)
[2025-02-04] MEDS: hydrOXYzine HCL 10 MG TAB PO (22:47)
[2025-02-04] MEDS: Melatonin 3 MG TAB 18 MG PO (22:47)
[2025-02-04] MEDS: Refresh PLUS Eye Drops 0.4ml OP (22:49)
[2025-02-04 23:37] VITALS: BP 121/105; PULSE 105; RESP 18; TEMP 36.4; O2SAT 95
[2025-02-05] MEDS: MORPHine 2 MG/ML SYR IVP ×2 (00:26→05:58)
[2025-02-05] MEDS: levoFLOXacin 750 MG/150 ML BAG 100 MG IVPB (00:27)
[2025-02-05] MEDS: Normal Saline Flush 10 ML SYR IVP (00:27)
[2025-02-05] MEDS: Acetaminophen 325 MG TAB 650 MG PO ×2 (02:49→06:27)
[2025-02-05 03:08] VITALS: TEMP 36.3
[2025-02-05 03:09] VITALS: TEMP 36.3
[2025-02-05 05:25] VITALS: BP 145/74; PULSE 94; RESP 18; TEMP 36.5; O2SAT 91
[2025-02-05] MEDS: Levothyroxine 50 MCG TAB PO (05:57)
[2025-02-05] MEDS: Omeprazole 20 MG CAPCR 40 MG PO (06:37)
[2025-02-05 07:26] LABS: HCT 36.7 % (36.0-46.0); HGB 12.5 g/dL (11.2-15.7); MCH 30.7 pg (27.0-33.0); MCHC 34.1 % (32.0-36.0); MCV 90 fL (80-95); MPV 9.8 fL (8.0-11.0); Platelet Count 212 10^3/uL (130-400); RBC 4.07 10^6/uL (3.93-5.22); RDW 14.1 % (11.7-14.6); RDW-SD 46.9 fL; WBC 24.48 10^3/uL (4.4-10.8)
[2025-02-05 08:02] VITALS: BP 132/65; PULSE 86; RESP 16; TEMP 36.5; O2SAT 93
[2025-02-05] MEDS: Metoprolol CR 25 MG TABCR PO (08:19)
[2025-02-05] MEDS: Aspirin 81 MG CHEW CH (08:21)
[2025-02-05] MEDS: buPROPion-XL 150 MG TABCR 300 MG PO (08:23)
[2025-02-05] MEDS: PARoxetine 20 MG TAB 40 MG PO (08:24)
[2025-02-05] MEDS: Magnesium Oxide 400 MG TAB PO (08:26)
[2025-02-05] MEDS: Folic Acid 1 MG TAB PO (08:26)
[2025-02-05] MEDS: Simethicone 80 MG CHEW 120 MG PO (08:27)
[2025-02-05] MEDS: Diclofenac 1% Gel 100 GM TUBE TP (08:32)
[2025-02-05] MEDS: Enoxaparin 40 MG/0.4 ML SYR SC (08:32)
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
--- NOTE | 2025-02-05 10:52 | NUR.NOTE ---
Called [facility] to give report at [phone], no answer, left message to call unit back for report
--- NOTE | 2025-02-05 16:10 | PDOC.CMDIS ---
Date of service: 02/05/25 Time of Service: 11:00 LACE Index Scoring Tool Questions: Length of Stay (in days): 4 - 6 Was the patient admitted via the E.D.?: Yes Comorbidities: Cerebrovascular Disease, Diabetes w/o Complication, Chronic Pulmonary Disease, Dementia and Liver or Renal Disease E.D. Visits: 1 Answers: Total Score: 13 Risk of Readmission: High Risk Care Management Discharge Plan Reason for Hospitalization: pneumonia, CVA, UTI Discharge Plan: Divya was transferred this morning to the [facility] for short term rehab with the goal of returning home. She will f/u with the facility provider and continue per her plan of care. Divya was transferred via EMS. Her and daughter were present at time of transfer. Patient/Family Education Needs: Review of discharge instructions, activity, limitations, and discuss ask me 3. Services Needed at Discharge: Longterm Facility
== END 2025-02-05 10:34 | disposition skilled nursing facility (03) | DRG 64 ==
LOC: ER 02-01 02:06 → ICU 02-01 03:06 → MS 02-01 19:25
PROVIDERS: General Practice; Admitting Provider Family Medicine; Emergency Provider Emergency Medicine Emergency Medical Services; PCP Family Medicine; Responsible Provider Family Medicine; Visit Provider Family Medicine
DX: N39.0 Urinary tract infection, site not specified; J18.9 Pneumonia, unspecified organism; C15.9 Malignant neoplasm of esophagus, unspecified; G35.D Multiple sclerosis, unspecified; E11.22 Type 2 diabetes mellitus with diabetic chronic kidney disease; Z79.4 Long term (current) use of insulin; E03.9 Hypothyroidism, unspecified; K21.9 Gastro-esophageal reflux disease without esophagitis; F32.A Depression, unspecified; I47.10 Supraventricular tachycardia, unspecified; E11.42 Type 2 diabetes mellitus with diabetic polyneuropathy; G93.40 Encephalopathy, unspecified; R74.8 Abnormal levels of other serum enzymes; D72.829 Elevated white blood cell count, unspecified; E87.6 Hypokalemia; S92.501A Displaced unspecified fracture of right lesser toe(s), initial encounter for closed fracture; I63.511 Cerebral infarction due to unspecified occlusion or stenosis of right middle cerebral artery; C79.51 Secondary malignant neoplasm of bone; R41.4 Neurologic neglect syndrome; J44.0 Chronic obstructive pulmonary disease with (acute) lower respiratory infection; N31.9 Neuromuscular dysfunction of bladder, unspecified; Z85.118 Personal history of other malignant neoplasm of bronchus and lung; Z66 Do not resuscitate; R13.10 Dysphagia, unspecified; K44.9 Diaphragmatic hernia without obstruction or gangrene; F41.0 Panic disorder [episodic paroxysmal anxiety]; N18.32 Chronic kidney disease, stage 3b; M81.0 Age-related osteoporosis without current pathological fracture; R29.6 Repeated falls; Z79.899 Other long term (current) drug therapy; B37.2 Candidiasis of skin and nail; G89.29 Other chronic pain; Z87.891 Personal history of nicotine dependence; H50.51 Esophoria; W19.XXXA Unspecified fall, initial encounter
CPT/HCPCS: 00123; 36415; 71250; 80048; 80053; 82805; 84145; 85027; 86850; 86900; 86901; 87040; 87637; 92610; 93005; 96365; 96366; 96375; 97112; 97163; 97166; 97530; 97535; 99285; J1650; 70450; 70460; 72125; 73630; 74176; 74177; 81003; 81015; 83605; 83735; 84443; 85025; 85610; 85730; 87086; 93010; 93306; 93880; 99223; 99233; 99239; J1200; J1815; J1956; J2250; J2270; J2919; J3360; J3480; J3490

== ENCOUNTER 2025-02-09 12:04 | Emergency (ER) | payer MEDICARE, MEDICAID, SELFPAY ==
[2025-02-09 12:17] VITALS: BP 148/74; PULSE 84; RESP 20; O2SAT 94
--- NOTE | 2025-02-09 12:27 | ED.GENADUL_ITS ---
Discharge Plan Disposition Condition: Stable Discharge Details Chief Complaint: Vascular Clinical Impression: Critical limb ischemia of right lower extremity Primary Care Provider: Alva Hein ED Provider: Chucky Lewis Home Meds and New Rx's Prescriptions: No Action melatonin 10 mg capsule 10 mg PO HS PRN (Reason: sleep) (DME) nebulizer See Rx Instructions .Route .MEDSUPPLY Qty: 1 0RF Rx Instructions: As directed ipratropium-albuterol 0.5 mg-3 mg(2.5 mg base)/3 mL solution for nebulization See Rx Instructions .ROUTE .COMPLEX Qty: 90 1RF Dose Instruction: INHALE 3ML VIA NEBULIZER EVERY 6 HOURS NEEDED FOR WHEEZING Rx Instructions: INHALE 3ML VIA NEBULIZER EVERY 6 HOURS NEEDED FOR WHEEZING nystatin 100,000 unit/gram ointment 1 applic topical TID Qty: 30 1RF Rx Instructions: Continue for skin fold rash epinephrine [EpiPen 2-Devin] 0.3 mg/0.3 mL auto-injector 0.3 mg IM ONCE Qty: 2 1RF (DME) Dexcom G7 Process Stripper Misc See Rx Instructions .Route Qty: 1 0RF Rx Instructions: As directed, to keep HbA1c less than 6.5% (DME) Dexcom G7 Sensor Device See Rx Instructions .Route Qty: 1 12RF Rx Instructions: As directed, to keep HbA1c less than 6.5% albuterol sulfate [ProAir HFA] 90 mcg/actuation HFA aerosol inhaler 1 - 2 puff Inhalation Q4-6H PRN Qty: 1 3RF Rx Instructions: DISPENSE ALBUTEROL INHALER BRAND WITH SPACER COVERED BY INSURANCE (D[facility] Instructions .ROUTE .MEDSUPPLY Qty: 100 3RF Rx Instructions: As directed to check blood glucose daily. No insulin. Dispense covered brand. (DME) Caps - intolerant of wigs See Rx Instructions .Route .MEDSUPPLY Qty: 2 0RF Rx Instructions: Provide head covering instead of wigs magnesium oxide 400 mg magnesium capsule 250 mg PO DAILY simethicone [Gas Relief (simethicone)] 125 mg capsule 125 mg PO BID-QID PRN (Reason: LUQ Discomfort; abdominal distention) Qty: 60 0RF artifi.tears(hypromellose)(PF) 1.7 % drops with applicator 1 drp ophthalmic (eye) 4-8XD PRN (Reason: dry eye(s)) Qty: 12 6RF paroxetine HCl 40 mg tablet 40 mg PO DAILY Qty: 90 0RF Patient Comments: takes at night bupropion HCl 300 mg tablet extended release 24 hr See Rx Instructions .ROUTE .COMPLEX Qty: 90 1RF Dose Instruction: TAKE 1 TABLET BY MOUTH EVERY MORNING Rx Instructions: TAKE 1 TABLET BY MOUTH EVERY MORNING hydroxyzine HCl 10 mg tablet See Rx Instructions .ROUTE .COMPLEX Qty: 120 5RF Dose Instruction: TAKE 1 TABLET BY MOUTH FOUR TIMES A DAY NEEDED FOR ANXIETY Rx Instructions: TAKE 1 TABLET BY MOUTH FOUR TIMES A DAY NEEDED FOR ANXIETY (DME) POCKET CHAMBER Spacer See Rx Instructions .ROUTE .MEDSUPPLY Qty: 1 0RF Rx Instructions: As directed (DME) glucometer See Rx Instructions .Route .MEDSUPPLY Qty: 1 0RF Rx Instructions: ONE TOUCH VERIO per task, 08/2022 pen needle, diabetic [BD Ultra-Fine Itzel Pen Needle] 32 gauge x needle See Rx Instructions miscellaneous .COMPLEX Qty: 100 3RF Rx Instructions: Use one pen needle daily with insulin injection DX: E11.9. Keep A1c below 7. (DME) OneTouch Verio test strips Strip See Rx Instructions .ROUTE .MEDSUPPLY Qty: 300 3RF Rx Instructions: TID Testing to keep A1C <8, Diabetes Mellitus pregabalin 75 mg capsule 75 mg PO HS Qty: 30 5RF levothyroxine 50 mcg tablet See Rx Instructions .ROUTE .COMPLEX Qty: 28 3RF Dose Instruction: TAKE 1 TABLET BY MOUTH DAILY Rx Instructions: TAKE 1 TABLET BY MOUTH DAILY metoprolol succinate 25 mg tablet extended release 24 hr 25 mg PO DAILY Qty: 90 1RF omeprazole 40 mg capsule,delayed release(DR/EC) 40 mg PO DAILY atorvastatin 40 mg Tablet 40 mg PO QPM Qty: 90 0RF aspirin 81 mg Tablet,Chewable 81 mg CH DAILY Qty: 90 0RF insulin glargine [Basaglar KwikPen U-100 Insulin] 100 unit/mL (3 mL) insulin pen 6 unit subcut QPM Patient Comments: per pt and , only if glucose is >200 Rx Instructions: Start low-dose insulin HPI General Date/Time Provider Initiated Documentation: 02/09/25 12:18 . HPI Narrative: 74 year-old female presents to ED today by EMS with a chief complaint of blackened cold R foot- states she has had this worsening for about a week, bumped it on something, endorses poor circulation and diabetes. Quality described as painful up to near her knee from the foot, no radiation to fever, open wound, purulent drainage, hip pain. Severity is described as severe. Pall iating factors include nothing specific attempted. Provoking factors include nothing specific. Patient not anticoagulated. Related Data Home Medications Medication Instructions Recorded Confirmed inhalational spacing device #1 ea 12/01/19 02/09/25 (POCKET CHAMBER spacer) melatonin 10 mg capsule 10 mg PO HS PRN sleep 02/09/25 albuterol sulfate 90 mcg/actuation 1 - 2 puff inhalati on Q4-6H PRN ##1 12/29/21 02/09/25 aerosol inhaler (ProAir HFA) lancets #100 ea 02/23/22 02/09/25 nebulizer #1 ea 06/09/22 02/09/25 Caps - intolerant of wigs #2 ea 08/17/22 02/09/25 glucometer #1 ea 09/20/22 02/09/25 magnesium oxide 250 mg PO DAILY 03/02/2301/24 pen needle, diabetic 32 gauge x See Rx Instructions mi scellaneous 10/23/23 02/09/25 5/32 (BD Ultra-Fine Itzel Pen .COMPLEX #100 ea Needle) ipratropium 0.5 mg-albuterol 3 mg See Rx Instructions .Route 11/08/23 02/09/25 (2.5 mg base)/3 mL nebulization .COMPLEX #90 mL soln nystatin 100,000 unit/gram topical 1 applic topical TI D #30 grams 11/08/23 02/09/25 ointment blood sugar diagnostic (OneTouch #300 ea 01/25/2401/31 Verio test strips) blood-glucose sensor (Dexcom G7 #1 ea 07/17/24 5 Sensor device) blood-glucose,roving teller,cont #1 ea 07/17/24 02/09/25 (Dexcom G7 Process Stripper) epinephrine 0.3 mg/0.3 mL 0.3 mg (0.3 mL) IM ONCE #2 e a 07/17/24 02/09/25 injection, auto-injector (EpiPen 2-Devin) artifi.tears(hypromellose)(PF) 1.7 1 drp ophthalmic (e ye) 4-8XD PRN 10/13/24 02/09/25 % eye drops with applicator dry eye(s) #12 mL simethicone 125 mg capsule (Gas 125 mg PO BID-QID PRN LUQ 10/13/24 02/09/25 Relief (simethicone)) Discomfort; abdominal disten tion #60 caps pregabalin 75 mg capsule 75 mg PO HS #30 caps 10/24/2 5 02/09/25 levothyroxine 50 mcg tablet See Rx Instructions .Route 11/25/24 02/09/25 .COMPLEX #28 tabs bupropion HCl 300 mg 24 hr tablet, See Rx Instructions .Route 12/11/24 02/09/25 extended release .COMPLEX #90 tabs hydroxyzine HCl 10 mg tablet See Rx Instructions .Rout e 12/11/24 02/09/25 .COMPLEX #120 tabs paroxetine HCl 40 mg tablet 40 mg PO DAILY #90 tabs 02/09/25 metoprolol succinate 25 mg 25 mg PO DAILY #90 tabs 02/09/25 tablet,extended release 24 hr omeprazole 40 mg capsule,delayed 40 mg PO DAILY 02/09/25 release aspirin 81 mg chewable tablet 81 mg CH DAILY #90 tabs 02/05/25 02/09/25 atorvastatin 40 mg tablet 40 mg PO QPM #90 tabs 02/09/25 insulin glargine 100 unit/mL (3 6 unit subcut QPM primitivo ge DM for pt 02/09/25 02/09/25 mL) subcutaneous pen (Basaglar with Rx Sensitivity KwikPen U-100 Insulin) Previous Rx's Medication Instructions Recorded inhalational spacing device #1 ea 12/01/19 (POCKET CHAMBER spacer) albuterol sulfate 90 mcg/actuation 1 - 2 puff inhalati on Q4-6H PRN ##1 12/29/21 aerosol inhaler (ProAir HFA) lancets #100 ea 02/23/22 nebulizer #1 ea 06/09/22 Caps - intolerant of wigs #2 ea 08/17/22 glucometer #1 ea 09/20/22 pen needle, diabetic 32 gauge x See Rx Instructions mi scellaneous 10/23/23 5/32 (BD Ultra-Fine Itzel Pen .COMPLEX #100 ea Needle) ipratropium 0.5 mg-albuterol 3 mg See Rx Instructions .Route 11/08/23 (2.5 mg base)/3 mL nebulization .COMPLEX #90 mL soln nystatin 100,000 unit/gram topical 1 applic topical TI D #30 grams 11/08/23 ointment blood sugar diagnostic (OneTouch #300 ea 01/25/24 Verio test strips) blood-glucose sensor (Dexcom G7 #1 ea 07/17/24 Sensor device) blood-glucose,roving teller,cont #1 ea 07/17/24 (Dexcom G7 Process Stripper) epinephrine 0.3 mg/0.3 mL 0.3 mg (0.3 mL) IM ONCE #2 e a 07/17/24 injection, auto-injector (EpiPen 2-Devin) artifi.tears(hypromellose)(PF) 1.7 1 drp ophthalmic (e ye) 4-8XD PRN 10/13/24 % eye drops with applicator dry eye(s) #12 mL simethicone 125 mg capsule (Gas 125 mg PO BID-QID PRN LUQ 10/13/24 Relief (simethicone)) Discomfort; abdominal disten tion #60 caps pregabalin 75 mg capsule 75 mg PO HS #30 caps 10/24/2 5 levothyroxine 50 mcg tablet See Rx Instructions .Route 11/25/24 .COMPLEX #28 tabs bupropion HCl 300 mg 24 hr tablet, See Rx Instructions .Route 12/11/24 extended release .COMPLEX #90 tabs hydroxyzine HCl 10 mg tablet See Rx Instructions .Rout e 12/11/24 .COMPLEX #120 tabs paroxetine HCl 40 mg tablet 40 mg PO DAILY #90 tabs metoprolol succinate 25 mg 25 mg PO DAILY #90 tabs tablet,extended release 24 hr aspirin 81 mg chewable tablet 81 mg CH DAILY #90 tabs 02/05/25 atorvastatin 40 mg tablet 40 mg PO QPM #90 tabs Allergies Allergy/AdvReac Type Severity Reaction Status Date / Time cortisone (Cortisone) Allergy Severe Passed out Verified 01/31/25 21:35 venom-honey bee (bee venom Allergy Severe Anaphylaxsi Verified 01/31/25 21:35 (honey bee)) s Cephalosporins Allergy Unknown Other (See Verified 01/31/25 21:35 Comment) naproxen (From Naprosyn) Allergy Unknown Other (See Verified 01/31/25 21:35 Comment) Penicillins Allergy Unknown Other (See Verified 01/31/25 21:35 Comment) shellfish derived Allergy Unknown Unknown Verified 02/02/25 16:16 Sulfa (Sulfonamide Allergy Unknown Other (See Verified 01/31/25 21:35 Antibiotics) Comment) erythromycin base Allergy Other (See Verified 01/31/25 21:35 Comment) venlafaxine (From Effexor) AdvReac Intermediate hallucinati Verified 01/31/25 21:35 ons acetaminophen (From Vicodin) AdvReac Unknown Nausea Verified 01/31/25 21:35 hydrocodone bitartrate (From AdvReac Unknown Nausea Verified 01/31/25 21:35 Vicodin) carboplatin AdvReac THROMBOCYTO Verified 01/31/25 21:35 PENIA contrast dye Allergy Severe Hives Uncoded 01/31/25 21:35 Metal Allergy Unknown Skin Rash Uncoded 01/31/25 21:35 General Stated Complaint: Vascular SAILAJA: 2 Review of Systems All systems reviewed & are unremarkable except as noted in HPI and below Exam Narrative Exam Narrative: GENERAL APPEARANCE: Frail non-toxic, awake and alert, atraumatic, moderate acute distress. SKIN: Warm, pale, dry, cold necrotic blackened skin of right lower extremity with no pulse to right dorsalis pedis or posterior tibialis HEAD: Normocephalic, atraumatic, normal hair distribution for gender/age. EYES: Normal conjunctiva, no exudates on lids/lashes. ENT: Nares patent, no circumoral cyanosis, no facial swelling NECK: Supple, trachea midline, painless cervical ROM. LUNGS/CHEST: Lungs CTA bilaterally-no rhonchi/rales/wheeze diffusely, non-lab ored respirations, normal A/P diameter, symmetrical expansion, no chest wall deformity HEART (CV/PV): Regular rate and rhythm without murmur, no peripheral edema, no JVD. ABDOMEN: Soft, non-distended, no guarding, no tenderness. MSK: Normal ROM, no swelling/deformity to bilateral UEs or LEs- limit with R LE plantar/dorsiflexion, moving all extremities without weakness, no cyanosis, spine midline without tenderness, normal curvature. NEURO: Mental Status AAOx4 - alert to person, place, time, events No facial droop, no forehead involvement. Motor: No focal weakness Sensory: sensation intact to light touch globally. PSYCH: euthymic, cooperative, pleasant, appropriate speech Course Vital Signs Vital signs: Vital Signs Pulse 84 02/09/25 12:17 Respiratory Rate 20 02/09/25 12:17 Blood Pressure 148/74 H 02/09/25 12:17 Pulse Oximetry 94 02/09/25 12:17 Pulse 84 02/09/25 12:17 Respiratory Rate 20 02/09/25 12:17 Blood Pressure 148/74 H 02/09/25 12:17 Blood Pressure Position Sitting 02/09/25 12:17 Pulse Oximetry 94 02/09/25 12:17 Oxygen Delivery Method Room Air 02/09/25 12:17 Oxygen Flow Rate 0 02/09/25 12:17 Medical Decision Making This dictation utilizes [id number] dictation software and may contain unedited grammatical errors. 74 year-old female presents to ED today by EMS with a chief complaint of blackened cold R foot- states she has had this worsening for about a week, bumped it on something, endorses poor circulation and diabetes. Quality described as painful up to near her knee from the foot, no radiation to fever, open wound, purulent drainage, hip pain. Severity is described as severe. Palliating factors include nothing specific attempted. Provoking factors include nothing specific. Patients' medical history: Stage IV lung cancer, diabetes mellitus, history of C. difficile, history of substance abuse, history of CVA, CKD stage III, COPD, SVT. Family and social history: lives at the [facility], family present in ER. Pertinent exam findings / vital signs include necrosis from the midfoot to all toes with some serous weeping, no open purulent lesions, some dusky skin to midway up anterior bhatti, no palpable or dopplerable pulses to the right foot, no thigh swelling, benign cardiopulmonary status, stable vitals, afebrile. Differential / pathologies of concern include gangrene, limb necrosis/ischemia, severe PAD. Diagnostic studies of: - CBC, CMP, lactate, CTA aorta with runoffs. - CBC shows leukocytosis to 19.22 but patient has persistent elevated WBCs at many past readings - Lactate negative - CMP is no major actionable abnormalities - CTA pending at sign-out Interventions of: - 125 mg IV Solu-Medrol, 50 mg IV Benadryl, 20 mg IV famotidine pre-ECT for contrast allergy. - Patient was consulted on by Dr. Carrillo of podiatry around 1330, recommends transfer for possible BKA, [facility] [place] capacity today pursuing UV transfer with vascular consult - [facility] transfer center declined consult at 1533- if this patient is not urgent they would need outpatient follow-up, asking for re- consult vs transfer elsewhere. - Paging [facility] [place] Vascular Surgery, family and patient would like amputation if it can be done for palliative comfort- pending vascular consult at sign-out. ED Course/Assessment/Plan: 74-year-old female with severe limb ischemia and necrotic right foot presents from a rehab facility, counseled that she would likely need amputation, she is a palliative patient on comfort measures this would be a palliative amputation, she would rescind her DNI to be intubated for surgery if needed but would prefer to be done with the block if possible, she has leukocytosis but has this many times in the past and I do not suspect sepsis at this time with her stable vitals, patient is signed out to Lea Ritchie PA-C with [facility] vascular surgery consult pending. Disposition of Critical Limb Ischemia of Right Lower Extremity. Patient verbalized understanding of the plan and return to ED criteria and engaged in shared decision making. Medical Records Medical records reviewed: Yes I reviewed the patient's medical records. Imaging Data Radiologic Study: Attestation: I personally reviewed and interpreted this imaging study as follows: Imaging: CT Scan Lab Data Lab results reviewed: Yes I reviewed the patient's lab results. Labs: Laboratory Tests Range/Units 02/09/25 02/09/25 12:40 13:00 WBC (4.4-10.8) 10^3/uL 19.22 H RBC (3.93-5.22) 10^6/uL 4.43 Hgb (11.2-15.7) g/dL 13.2 Hct (36.0-46.0) % 39.5 MCV (80-95) fL 89 MCH (27.0-33.0) pg 29.8 MCHC (32.0-36.0) % 33.4 RDW (11.7-14.6) % 14.1 Plt Count (130-400) 10^3/uL 277 MPV (8.0-11.0) fL 9.5 Immature Gran % % 1.3 Neutrophils % % 82.4 Lymphocytes % % 6.2 Monocytes % % 9.6 Eosinophils % % 0.2 Basophils % % 0.3 Nucleated RBC % (0.0-0.3) % 0.0 Absolute Neutrophils (1.2-6.7) 10^3/uL 15.84 H Absolute Lymphocytes (1.2-3.4) 10^3/uL 1.19 L Absolute Monocytes (0.1-0.8) 10^3/uL 1.85 H Absolute Eosinophils (0.0-0.7) 10^3/uL 0.04 Absolute Basophils (0.0-0.2) 10^3/uL 0.06 RBC Morphology Normal VBG Lactate (<or=2.0) mmol/L 1.4 Sodium Cancelled 138 Potassium Cancelled 4.2 Chloride Cancelled 103 Carbon Dioxide Cancelled 23.5 Anion Gap Cancelled 11.5 H BUN Cancelled 27 H Creatinine Cancelled 1.0 Est GFR (CKD-EPI 2020) Cancelled 59.86 Glucose Cancelled 163 H Calcium Cancelled 9.1 Total Bilirubin Cancelled 0.4 AST Cancelled 78 H ALT Cancelled 42 Alkaline Phosphatase Cancelled 182 H Total Protein Cancelled 7.4 Albumin Cancelled 2.5 L PFSH All Active Problems (Updated 02/09/25 @ 15:36 by LASHAWN Dillard) Critical limb ischemia of right lower extremity (Acute) Pain in right foot (Acute) Gangrene of right foot (Acute) Critical limb ischemia of right lower extremity (Acute) ACP (advance care planning) (Acute) Hypothyroidism (acquired) (Chronic) Leukocytosis (Acute) Closed fracture of fifth toe of right foot (Acute) CVA (cerebral vascular accident) (Chronic) Adenocarcinoma of esophagus (Acute) 01/27/25-[facility] [place] pathology report. Hiatal hernia (Chronic ~12/2024) 2 CM Abnormal EMG (Acute) Agoraphobia with panic attacks (Acute) Abnormal gastrointestinal PET scan (Acute) Post-concussion headache (Acute) Sagittal band rupture, extensor tendon, nontraumatic (Acute) Managed by [facility] [place] [place] Orthopedics Trigger finger, left middle finger (Acute) Trigger finger, left ring finger (Acute) Abscess of right thigh (Acute) lateral rt thigh - no cut/bug bite reported. Incurved toenail (Acute) CKD (chronic kidney disease) stage 3, GFR 30-59 ml/min (Chronic) 3b with GFR @ 40.47 (ave Cr 1.4 over 3 yrs) Acute nightmare disorder with associated non-sleep disorder (Acute) is it her medicine, she asks? At risk for cardiac dysfunction during anesthesia (Acute) Clinical Dx per PCP based on recent HOLD of colo/egd 2' CP .. recommending Card/EGD @ [facility] [place]. Abnormal positron emission tomography (PET) scan (Acute) distal esophageal finding on PET Dysphagia (Acute) Lung cancer (Chronic) Stable per PET, 12/2021. 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 Presumed Dx .. [ ] Pulm Postprandial abdominal bloating (Acute) Osteoporosis (Chronic ~12/2022) Diabetes mellitus (Chronic) A1C 6.2%, down from last A1C 06/30/22 (6.6%) Seborrheic dermatitis (Acute) no improvement 2' shampoo; Chronic fatigue (Chronic) Fatigue due to excessive exertion (Acute) now minimal exertion Exertional dyspnea (Acute) Paroxysmal SVT (supraventricular tachycardia) (Chronic) Isolation, social (Acute) Becoming unbearable .. stayinhg in dark room with curtains closed. Missing kids/grandkids. Gastroesophageal reflux disease (Chronic) Alopecia (Acute) Multiple sclerosis (Chronic 09/26/12) affecting bladder per urol per pt report Occipital neuralgia (Acute) Peripheral polyneuropathy (Chronic) Thyroid nodule (Acute) Three per 05/2021 US: FNA x1 ( 5 ACR Ti-Rad) recommended .. [ ] ENT .. ik. per 08/2019 US ([facility]): TIRADS evaluation, 7 points, TR 5, highly suspicious, tissue sampling recommended for lesions 1 cm or greater. (10x7x7) ..Thyroid n odule (benign appearance) found incidentally (Apr 2018 Onc note); Neck swelling, hair loss 08/2019. Drug-induced hypothyroidism (Acute) per chemo? re-check, 10/2020 Falls frequently (Acute) Pt here today for: 1 mo, bg, dm; PATRIZIA was 05/15/23 plan was to: Plan Detail Says she hadn't been feeling well Has fallen twice in the past week. Still has ROLLE especially after hitting her head 06/09 Last A1C 6.2 todays is 6.6 Has labs done last week Follow Up: 3 mos (chronic conditions (ctld Rx)) 1 mos (BG, DM) Pt is overdue for an annual. A1C last 11/30/22 was 6.2%, needs foot exam.HE Avoidance coping (Acute) High anxiety with serious family health issues .. and difficulty getting to specialty care for MS and Hx Lung Cancer. Impacted cerumen, right ear (Acute) Leg pain (Acute) Neurogenic bladder (Acute) Per Urology, s/p BOTOX (detruser mm) Kidney stone on left side (Acute) Small, nonobstructive.. per US, 04/2022 RUQ abdominal pain (Acute) Episodic .. pt concerned about her liver .. US PRN Medical History Post covid-19 condition, unspecified Vocal cord anomaly Agree with FREQUENCY CHECKER (Oly Russell) to work with [employer]ENGTH[employer]ING [employer]ICE Prediabetes Newly DM with A1C > 6/5! Spring/Summer 2022 Urinary urgency Resolved with BOTOX, 01/2022 Abdominal or pelvic swelling, mass, or lump, right upper quadrant swells up at night , Hx tauma Urinary retention Myrbetriq helped, but then became incontinent ==> now s/p BOTOX with great results, 02/17/22, ik Dream anxiety disorder resolved, 2' CBD Nightmares resolved .. 2' CBD Tetanus vaccination not carried out live ingredient contra-indicated administered 07/2021 Encounter for medication review and counseling Hx intolerance, changes and consistent discrepancies Chronic disease /disorder Weight gain Very upset with weight gain .. is it due to medication? Candidal intertrigo Painful skin lesions since October .. Nystatin ointment helps, they will add zinc paste to regimen. Wheelchair dependent FOR VACATION/TRAVEL; Renting a scooter for upcoming vacation, 11/30/22, ik ..For mod-long outings .. trying to walk more for exercise @ home, 01/2021 History of Clostridioides difficile colitis Family history of substance abuse Pt is not abusing substances; Pt is wary of possibly becoming dependent although we may need pain/anx meds @ times due to serious health conditions. History of substance abuse Hx very far back in 20s, started with Rx and weaned off... Chronic pain Stress due to illness of family member Mo dementia worsening, Step-Fa hospitalized x 5 days ([facility]) .. hope Brother can get guardianship .. Gr-dtr @ [facility] [place] wit illness .. Sister just out of rehab. Shingles (herpes zoster) polyneuropathy painful blistering Hematuria noticing dark, red urine .. hesitancy, but no dysuria.. NO BLOOD PER UA (08/2019) Palliative care patient Met w/ Dr. De Leon, 10/2020 .. considering morphine for pain & SOB Chronic prescription benzodiazepine use Tobacco use disorder QUIT 2019. 0-3 cigarettes/day (04/2019) . Hx 1-2 PPD 20 yrs ago. Lately no smoking bc of malaise. Severe episode of recurrent major depressive disorder, with psychotic features Primary malignant neoplasm of lung metastatic to other site Stable per PET, 12/2021. Dx 2016 PET scan 10/31/18 [facility] [place] - new 9 mm nodular opacity right upper lobe. Other opacities stable. FDG avid nodule right lobe thyroid 09/03/19- PET scan. no new sites of suspected active malignancy or metastasis. Dr. Agata MD..12/2021 PET Scan stable Panic disorder Other injury of flexor muscle, fascia and tendon of right ring finger at wrist and hand level, initial encounter (09/11/16) Galactorrhea not associated with childbirth (09/26/12) Anxiety and depression Eating disorder Surgical History H/O esophagogastroduodenoscopy (01/20/25) [facility] Partially obstructing malignant esophageal tumor found-needs staging Tonsillectomy Oophrectomy, Both (~1989) with MARCO for endometriosis Abdominal hysterectomy (~1989) Endometriosis Repair of inguinal hernia (~1994) Appendectomy (10/24/07) Family History Father Diabetes Parkinson's disease Sister Diabetes Mother Dementia Colon cancer Sister Asthma Sister , Suicide Depression Brother Asthma Brother Lupus Daughter Panic attacks Anxiety Paternal Grandmother Parkinson's disease Social History Smoking/Tobacco Use Status: Former Tobacco Use Quit Date: 05/31/16 Pack-years: 50 Tobacco: How many years used: 50 Second Hand Exposure: Yes Counseling given: counseling >3 minutes Smoking risk assessment performed?: Yes Alcohol Intake: never Drug use: Never Substance use type: does not use Counseling given: Yes Details: cbd gummies Caregiver/Support person: Yes Household members: spouse Housing: house Number of Children: 2 Communication Needs: Corrective Lenses Education Level: high school Details: did not graduate; went to work Do you need help understanding health information?: Often current occupation: disabled Pets and animals: No Current gender identity: female What is your relationship status?: How often do you talk on the phone with friends or family?: three or more times per week How often do you get together with friends or relatives?: never Panel score (0-1 are the most socially isolated patients): 2 What type of physical activity do you participate in: none and sedentary lifestyle Frequency: does not exercise Special valerie needs: No Seatbelt use: always Water heater temp set <120 deg: Yes Working smoke detector in home: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
--- NOTE | 2025-02-09 12:30 | DI.CT_ITS ---
Exam(s) CT ABD AORTA CTA W RUNOFF EXAM: CT ABD AORTA CTA W RUNOFF CLINICAL HISTORY: pulseless R LE. TECHNIQUE: Imaging Protocol: Axial CT angiography was performed with multi- slice acquisition and multi-planar and/or 3D reconstructions. CONTRAST MATERIAL: Intravenous: Omnipaque 350 Contrast volume:150 ml Contrast route:IV - Oral: / no COMPARISON: CT CT ABDOMEN PELVIS W from 02/04/2025 FINDINGS: Exam is limited by motion and artifact related to arm positioning. Vascular Structures: Aorta: No aneurysm. No dissection. Stable focal plaque in the posterior aspect of the superior abdominal aorta. Stable appearance of plaque at the distal abdominal aorta with some luminal narrowing. Celiac [place]: Mild stenosis. SMA: Proximal plaque but no significant stenosis. Renal Arteries: Proximal plaque but no significant stenosis. There is a single renal artery perfusing each kidney. BECKY: Patent. Pelvis: Iliac Arteries: Calcific plaque proximally. Stable severe stenosis of the proximal through distal right common mild stenosis of the left common iliac artery. Common Femoral Arteries: Evaluation limited due to motion. Mild plaque proximally. Vessel diameters diminutive bilaterally. Lower extremities: Evaluation significantly limited due to motion, particularly on the delayed images of the lower legs and and feet. Right: Superficial Femoral: Diminutive caliber throughout. No visible focal stenosis. Popliteal: Diminutive caliber throughout. No visible stenosis. Knee Trifurcation: Vessels are diminutive but appear patent to the level of the ankle. No flow visible to the foot. Delayed images show significant motion the vessels cannot be evaluated. Left: Superficial Femoral: No significant stenosis. Popliteal: No significant stenosis. Knee Trifurcation: No significant stenosis. Posterior Tibial: No significant stenosis. Peroneal: No significant stenosis. Dorsalis Pedis: Vessels visible to the level of the distal foot and toes. Abdomen pelvis: Lungs: Limited evaluation due to respiratory motion. Similar appearing rounded pleural based density in the left lower lobe. Liver: Considerable motion. Gallbladder and biliary tract: No radiodense calculus or dilation. Pancreas: Normal density, no abnormal calcifications or inflammatory process. Spleen: Normal. Kidneys: Normal size, contour and axis. No radiodense stones or obstructive uropathy. No masses seen. Adrenal glands: No masses seen. Aorta: Abdominal portion non-dilated. Bladder: Symmetric distention, no gross wall thickening. Bowel: No obstruction or bowel wall thickening. Mild sigmoid diverticulosis. The appendix is not seen. Peritoneal cavity: No ascites, collection or mesenteric inflammatory response. Bones: Scoliosis and degenerative changes in the spine. Reproductive: Hysterectomy. IMPRESSION: Severe stenosis of the right common iliac artery extending from the proximal through distal portion. Diminutive caliber of the right femoral and popliteal arteries. Vasculature to the lower leg, at and below the trifurcation are diminutive in caliber and taper off just before the level of the ankle. No flow is seen through the foot. The evaluation is limited by motion. Findings called to ER provider RADIATION DOSE DELIVERED: Total DLP DATA REPOSITORY: All CT scans at this facility are submitted to the National Radiology Data Registry (NRDR) Dose Index Registry (DIR) with the [employer] (ACR). RADIATION OPTIMIZATION: All CT scans at this facility use at least one of these dose optimization techniques: automated exposure control; mA and/or kV adjustment per patient size (includes targeted exams where dose is matched to clinical indication); or iterative reconstruction.
[2025-02-09 12:47] LABS: Abs Immature Grans 0.25 10^3/uL (0.0-0.06); HCT 39.5 % (36.0-46.0); HGB 13.2 g/dL (11.2-15.7); Immature Grans % 1.3 %; MCH 29.8 pg (27.0-33.0); MCHC 33.4 % (32.0-36.0); MCV 89 fL (80-95); MPV 9.5 fL (8.0-11.0); Platelet Count 277 10^3/uL (130-400); RBC 4.43 10^6/uL (3.93-5.22); RDW 14.1 % (11.7-14.6); RDW-SD 45.7 fL; WBC 19.22 10^3/uL (4.4-10.8)
[2025-02-09 13:07] LABS: RBC Morphology Normal
[2025-02-09] MEDS: diphenhydrAMINE 50 MG/ML VIAL IVP (13:14)
[2025-02-09] MEDS: methylPREDNISolone SUCC 125 MG VIAL IVP (13:15)
[2025-02-09] MEDS: Famotidine 20 MG/2 ML VIAL IVP (13:15)
[2025-02-09 13:26] LABS: ALT 42 U/L (14-59); AST 78 U/L (15-37); Albumin 2.5 g/dL (3.4-5.0); Alkaline Phosphatase 182 U/L (46-116); Anion Gap 11.5 mmol/L (3-11); BUN 27 mg/dL (7-18); Bilirubin, Total 0.4 mg/dL (0.2-1.0); CO2 23.5 mmol/L (21.0-32.0); Calcium 9.1 mg/dL (8.5-10.1); Chloride 103 mmol/L (98-107); Glucose 163 mg/dL (74-106); Potassium 4.2 mmol/L (3.5-5.1); Sodium 138 mmol/L (136-145); Total Protein 7.4 g/dL (6.4-8.2)
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
[2025-02-09] MEDS: Normal Saline Flush 10 ML SYR IVP (14:54)
[2025-02-09] MEDS: Omnipaque 350 MG/ML 50 ML BTL IJ (14:55)
[2025-02-09] MEDS: Normal Saline - Diluent 50 ML VIAL IJ (14:55)
[2025-02-09] MEDS: Omnipaque 350 MG/ML 100 ML BTL IJ (14:55)
[2025-02-09] MEDS: MORPHine 10 MG/ML VIAL 2 MG IVP ×2 (16:11→17:58)
--- NOTE | 2025-02-09 16:45 | RT.EKG_ITS ---
APPROVED REPORT Exam: Resting ECG Reason for Exam: requested by [facility] Vascular surgeon Patient Location: E HR:90 bpm ECG Measurements Heart Rate 90 AXIS VT 186 P 45 QRSd 92 QRS -21 QT 417 T 29 QTc 510 Conclusion Sinus rhythm, rate 90 Prolonged QTc at 510ms Q waves V1-V4, III and aVF unchanged from priors No STEMI
[2025-02-09 17:15] VITALS: PULSE 91; RESP 13
[2025-02-09] MEDS: Heparin in 0.45% NaCl 25,000 UNIT/250 ML BAG 12 UNIT IVINF (17:18)
[2025-02-09 17:49] LABS: INR 1.2 (0.9-1.1); PTT Activated 40.4 sec (20.6-30.2); Prothrombin Time 12.3 sec (9.1-11.1)
[2025-02-09 18:02] VITALS: BP 102/74; PULSE 86; RESP 16; O2SAT 93
[2025-02-09 19:24] LABS: Magnesium 2.4 mg/dL (1.8-2.4)
--- NOTE | 2025-02-09 22:38 | NUR.NOTE ---
Nursing Note: Chart accssesd to obtain demographic sheet for [facility].
--- NOTE | 2025-02-10 10:33 | NUR.NOTE ---
Access chart to reconcile EKG orders with EKG's in [facility]. Duplicate order cancelled. Nursing Note:
== END 2025-02-09 18:03 | disposition short-term general hospital (02) ==
PROVIDERS: Physician Assistant; Emergency Provider Physician Assistant; PCP Legal Medicine
DX: I70.221 Atherosclerosis of native arteries of extremities with rest pain, right leg (principal); I96 Gangrene, not elsewhere classified; M79.671 Pain in right foot
CPT/HCPCS: 36415; 36416; 75635; 80053; 82962; 93005; 96365; 96375; 96376; 99285; 83605; 83735; 85025; 85610; 85730; 93010; J1200; J1644; J2270; J2919; J3490; Q9967